=== PATIENT | male | born 1955 | race Caucasian/White ===

== ENCOUNTER 2018-07-04 04:16 | Inpatient (IN) | payer BC, SELFPAY ==
[2018-07-04] VITALS (29 sets, daily range): BP systolic 113–174; BP diastolic 54–96; PULSE 55–81; RESP 11–20; TEMP 36.4–36.7; O2SAT 98–100; BMI 31.1; BMI 31.4; BMI 31.5
--- NOTE | 2018-07-04 04:25 | EKG12_ITS ---
Test Reason : CP Blood Pressure : / mmHG Vent. Rate : 075 BPM Atrial Rate : 075 BPM P-R Int : 160 ms QRS Dur : 094 ms QT Int : 380 ms P-R-T Axes : 047 -03 104 degrees QTc Int : 424 ms Normal sinus rhythm Inferior infarct , acute T wave abnormality, consider lateral ischemia ACUTE WI / STEMI Consider right ventricular involvement in acute inferior infarct Abnormal ECG Confirmed by BECCA PERALTA, GUSTAVO ([id number]), book or script editor ALFREDO FARMER ([id number]) on 07/05/2018 3:45:44 PM Referred By: Sacha Coles Confirmed By:GUSTAVO HUDSON MD
--- NOTE | 2018-07-04 04:25 | RAD_ITS ---
STUDY: X-RAY CHEST REASON FOR EXAM: Male, 63 years old. Chest pain TECHNIQUE: Single AP portable view of the chest. COMPARISON: None. FINDINGS: There are superimposed monitor leads. The lungs are hyperaerated. Mild interstitial prominence. There is no focal parenchymal abnormality. There is no demonstrated pleural abnormality. There is borderline cardiomegaly. Normal mediastinum and elida. Normal visualized pulmonary arteries. There is atherosclerotic calcification of the aortic arch with tortuosity. There are diffuse degenerative changes of the visualized thoracic spine. Normal visualized ribs, clavicles, and shoulders. There is no demonstrated abnormality of the visualized soft tissue structures of the upper abdomen. RAD/Chest 1 View (Portable) IMPRESSION: There is borderline cardiac size. No pulmonary edema, congestive heart failure or confluent pneumonia. Other nonacute findings as outlined above. Electronically Signed: Katarina Gaona MD at 4:51 EST , Service support ,
--- NOTE | 2018-07-04 04:27 | ED.VISSUMM ---
- ER Visit Summary Date of Service: 07/04/18 Chief Complaint: Chest pain History of Present Illness: The patient is a 63 M with chest pain for an hour and a half. It woke him up from sleep. He has a history of hypercholesterolemia, he is a smoker and he has a strong family history of chest pain. Patient continues in the ED. Physical Examination: She appears in some distress, he is slightly diaphoretic Moist mucous membranes, no obvious facial deformity No C-spine tenderness supple neck. Regular rate and rhythm without any obvious murmurs Clear lungs bilaterally speaking in full sentences without any obvious respiratory distress Abdomen soft and nontender no guarding or rebound Moves all extremities without any difficulty or pain. Skin does not show any obvious rashes or lesions, no trauma. Alert oriented ?3 with no gross focal deficit Emergency Department Course and Treatment: Emergent EKG shows an inferior ST elevation [place] with reciprocal changes. STEMI team was activated. Patient was given heparin Brilinta as well as aspirin. I talked to the field cane scale clerk for emergent catheterization. Disposition: Admit to the hospital Impression: Acute ST elevation myocardial infarction This note was generated with M/A-[employer] dictation software. It may contain incorrect words, spelling, and punctuation that were not noted in review of the chart prior to signing ED Disposition - Plan for ED Patient: Chief Complaint: Chest Pain Referrals: Carolina Pablo MD [Primary Care Provider] -
[2018-07-04] MEDS: Aspirin 81 MG TAB.CHEW 324 MG PO (04:28)
[2018-07-04] MEDS: TICAGRELOR 90 MG TABLET 180 MG PO (04:29)
[2018-07-04] MEDS: Heparin Injection (Vial) 5,000 UNIT/ML VIAL 4000 UNIT IV (04:29)
--- NOTE | 2018-07-04 04:31 | ED.DCSUM_ITS ---
- ER Visit Summary Date of Service: 07/04/18 Chief Complaint: Chest pain History of Present Illness: The patient is a 63 M with chest pain for an hour and a half. It woke him up from sleep. He has a history of hypercholesterolemia, he is a smoker and he has a strong family history of chest pain. Patient continues in the ED. Physical Examination: She appears in some distress, he is slightly diaphoretic Moist mucous membranes, no obvious facial deformity No C-spine tenderness supple neck. Regular rate and rhythm without any obvious murmurs Clear lungs bilaterally speaking in full sentences without any obvious respiratory distress Abdomen soft and nontender no guarding or rebound Moves all extremities without any difficulty or pain. Skin does not show any obvious rashes or lesions, no trauma. Alert oriented ?3 with no gross focal deficit Emergency Department Course and Treatment: Emergent EKG shows an inferior ST elevation [place] with reciprocal changes. STEMI team was activated. Patient was given heparin Brilinta as well as aspirin. I talked to the map editor for emergent catheterization. Disposition: Admit to the hospital Impression: Acute ST elevation myocardial infarction This note was generated with [employer] dictation software. It may contain incorrect words, spelling, and punctuation that were not noted in review of the chart prior to signing ED Disposition - Plan for ED Patient: Chief Complaint: Chest Pain Referrals: Carolina Pablo MD [Primary Care Provider] -
--- NOTE | 2018-07-04 04:38 | ED.RN ---
PT REQUESTED STAFF CONTACT OLAF KILLIAN
--- NOTE | 2018-07-04 04:41 | NURSING ---
STEMI DOCUMENTATION SENT TO THE [facility]. AWAITING STAFF TO ARRIVE.
[2018-07-04 04:44] LABS: Absolute Lymphocyte Count 2.35 X10^3/ul (0.83-4.51); Absolute Neutrophil Count 3.4 X10^3/uL (2.0-7.7); Basophil# 0.03 X10^3/uL; Basophil% 0.4 % (0-1); Eosinophil# 0.18 X10^3/uL; Eosinophils% 2.7 % (0-5); Hematocrit 43.1 % (40-54); Hemoglobin 14.5 g/dl (13.0-16.5); Lymphocyte # 2.35 X10^3/ul (4.0); Lymphocyte % 35.2 % (19-41); Mean Corp Hgb Conc 33.6 g/gl (32-36); Mean Corpuscular Hgb 30.3 pg (27.0-32.0); Mean Platelet Vol. 9.5 fl (6.2-12.0); Monocyte# 0.72 X10^3/uL; Monocyte% 10.8 % (0-10); Neutrophil # 3.38 X10^3/uL (2.7-7.7); Neutrophil % 50.8 % (47-70); Platelet Count 309 K/mm3 (150-450); RBC Distribution Width CV 13.1 % (11.6-14.6); Red Blood Count 4.79 M/mm3 (4.6-6.2); White Blood Count 6.7 K/mm3 (4.4-11.0)
[2018-07-04 04:46] LABS: POSITIVE COUNT NO; POSITIVE DIFFERENTIAL NO; POSITIVE MORPHOLOGY NO
--- NOTE | 2018-07-04 04:48 | PCM.HP.STD ---
Problem List (1) Chest pain Status: Acute History of Present Illness Date of Admission: 07/04/18 Chief Complaint: CHEST PAIN The patient is a 63 year old M with a significant history of hypertension; hyperlipidemia who presented with progressively worsening excruciating pressure-like substernal pain that started a few hours before presentation to the emergency department. His chest pain radiated to his left arm. Associated with symptoms is nausea, vomiting and diaphoresis. Patient was given a pain medication to help with his pain. Patient was noted to have ST elevation. Cardiology saw the patient at the ED and patient was wheeled to the Manufacturing Clerk for cardiac catheterization. Past Medical History Medical History: Medical History (Last Updated 07/04/18 @ 05:35 by Mack Pittman MD) Hyperlipidemia E78.5 Hypertension I10 Allergies LODINE Allergy (Uncoded 07/04/18 04:17) Hives Home Medications: Ambulatory Orders Medication Instructions Recorded Hydrocodone/Acetaminophen 1 tab PO Q4H PRN PRN 07/04/18 [Hydrocodone-Acetamin 5-325 mg] Multivitamin [Multiple Vitamins] 1 tab PO DAILY 07/04/18 Naproxen 1 tab PO BID 07/04/18 Rosuvastatin Calcium 1 tab PO QHS 07/04/18 Surgical History: - - Internal hemorrhoid surgery; and back surgery Smoking Status: Current every day smoker Tobacco Use: Cigarettes - *Family History Paternal History Items: Heart Disease Maternal History Items: Cancer Review of Systems Constitutional: Denies: Chills, Fever, Weight Change HEENT: Denies: Head Aches, Sinus Congestion, Sinus Drainage Cardiovascular: Reports: Chest Pain, Chest Pressure. Denies: Palpitations Respiratory: Denies: Cough, Shortness of breath at rest, Sputum production Gastrointestinal: Reports: Nausea, Vomiting. Denies: Abdominal Pain Genitourinary: Denies: Dysuria Musculoskeletal: Denies: Joint Pain, Joint Tenderness Skin: Denies: Rash, Wounds Neurological: Denies: Numbness, Tingling, Focal weakness Psychiatric: Denies: Anxiety, Depression, Homicidal Ideations, Suicidal Ideations Hematologic/ Lymphatic: Denies: Easy Bruising, Easy Bleeding VTE Information - Inpt Only VTE Present on Admission: No VTE Mechan Device Prophylaxis: None VTE Pharm Prophylaxis ordered?: No Reason prophylaxis not ordered:: Treatment Not Indicated - Patient received heparin at emergency department. Patient Problems: Active and Suspected Problems (Last Updated 07/04/18 @ 05:35 by Mack Pittman MD) Chest pain (Acute) - Physical Exam General: Alert, Oriented x3, Cooperative HEENT: Atraumatic, PERRLA, EOMI, Normocephalic Neck: Supple, No JVD, Negative Carotid Bruits Lungs: Clear to auscultation, Normal air movement Cardiovascular: Regular rate, No murmurs Abdomen: Bowel Sounds Present, Soft, Non Tender Extremities: No edema, Capillary Refill Less than 3 Seconds Skin: No rashes, No breakdown Musculoskeletal: No Tenderness to Palpation of Joints or Extremities Neurological: Cranial nerves II-XII grossly intact Psych/Mental Status: Normal Affect, Appropriate Vital Signs Temp Pulse Resp BP Pulse Ox 97.5 F L 81 16 174/96 H 99 07/04/18 04:17 07/04/18 04:17 07/04/18 04:22 07/04/18 04:22 07/04/18 04:32 Oxygen Flow Rate (L/min) 2 Oxygen Delivery Method Nasal Cannula Weight: 101.5 kg Body Mass Index (BMI) 31.1 Laboratory Tests Past 24 Hrs 07/04/18 07/04/18 07/04/18 04:22 04:22 04:22 WBC 6.7 RBC 4.79 Hgb 14.5 Hct 43.1 MCV 90.0 MCH 30.3 MCHC 33.6 RDW 13.1 RDW Differential 43.0 Plt Count 309 MPV 9.5 Immature Gran % (Auto) 0.100 Neut % (Auto) 50.8 Lymph % (Auto) 35.2 Christian % (Auto) 10.8 H Eos % (Auto) 2.7 Baso % (Auto) 0.4 Absolute Neuts (auto) 3.4 Absolute Lymphs (auto) 2.35 Total Counted Not Reportable PT Pending INR Pending APTT Pending Sodium Pending Potassium Pending Chloride Pending Carbon Dioxide Pending Anion Gap Pending BUN Pending Creatinine Pending Est GFR (MDRD) Af Amer Pending Est GFR (MDRD) Non-Af Pending BUN/Creatinine Ratio Pending Glucose Pending Calcium Pending Troponin I Pending Assessment/Plan All Active Problems (Last Updated 07/04/18 @ 05:35 by Mack Pittman MD) Chest pain (Acute) The patient is a 63 year old M with a significant history of hypertension; hyperlipidemia who presented with progressively worsening excruciating pressure-like substernal pain and found to have ST elevation WI. ST elevation WI Independent review of EKG showed T wave inversion in inferior leads and reciprocal inversions in lead I, aVL and V2. Patient was taken to the Manufacturing Clerk after receiving Brilinta and heparin. Patient came to the hospital with squad. He took one aspirin at home. Patient was wheeled to worm farm laborer after seeing cardiology at the ED. Follow up with further cardiology recommendations. Hyperlipidemia Patient takes Crestor at home. Follow-up with cardiology recommendations. Hypertension Blood pressure on admission was not within goal. Follow up with further heart medications after cardiac cath. Tobacco abuse Counseled NicoDerm patch ordered. DVT prophylaxis Received heparin at the ED SCD ordered Code Visit Inpatient E&M: 91732 Init Hosp L3
[2018-07-04 04:52] LABS: Prothrombin Time (Protime)PT. 12.8 SECONDS (11.7-14.9)
[2018-07-04 04:53] LABS: Partial Thromboplast Time 31.9 Seconds (24.1-36.2)
[2018-07-04 04:59] LABS: Anion Gap 8 (5-15); BUN 14 mg/dL (7-18); BUN/Creat Ratio 14.8 RATIO (10-20); Calcium,Total 9.1 mg/dL (8.5-10.1); Chloride 106 mmol/L (98-107); Creatinine, Serum 0.95 mg/dL (0.70-1.30); EST Glomerular Filtration Rate 86 mL/min (>60); Est Glom Filt Rate - Afr Amer 104 mL/min (>60); Estimated Creatinine Clearance 86.97 ml/min; Glucose 128 mg/dL (74-106); Potassium 3.8 mmol/L (3.5-5.1); Sodium Level 142 mmol/L (136-145)
--- NOTE | 2018-07-04 05:04 | ED.RN ---
lab called with troponin 1.47 - MD aware.
--- NOTE | 2018-07-04 06:50 | CON.PCM_ITS ---
Reason for Consult Date of Consultation: 07/04/18 History of Present Illness: The patient is a 63 year old M with past medical history significant for dyslipidemia and chronic back pain. He woke up at around 3 AM this morning with anterior chest discomfort that radiated to the left arm. [facility] In the emergency room an EKG was done which showed acute inferior ST elevation myocardial infarction. Subsequently a STEMI alert was called. Patient denies any previous history of coronary artery disease. [] Past Medical History Allergies/Adverse Reactions: Allergies LODINE Allergy (Uncoded 07/04/18 04:17) Hives Home Medications: Ambulatory Orders Medication Instructions Recorded Hydrocodone/Acetaminophen 1 tab PO Q4H PRN PRN 07/04/18 [Hydrocodone-Acetamin 5-325 mg] Multivitamin [Multiple Vitamins] 1 tab PO DAILY 07/04/18 Naproxen 1 tab PO BID 07/04/18 Rosuvastatin Calcium 1 tab PO QHS 07/04/18 Surgical History: - - Internal hemorrhoid surgery; and back surgery - *Family History Paternal History Items: Heart Disease Maternal History Items: Cancer Smoking Status: Current every day smoker Tobacco Use: Cigarettes Review of Systems - Review of Systems General: Denies: Fever, Fatigue, Weight Loss Cardiovascular: Reports: Chest Discomfort at Rest. Denies: Orthopnea, PND Respiratory: Denies: Cough, Hemoptysis Gastrointestinal: Denies: Heart Burn, Abdominal Discomfort, Jaundice Neurological: Denies: History of TIA, History of CVA Endocrine: Denies: Heat Intolerance, Cold Intolerance Hematologic/ Lymphatic: Denies: Easy Brusing, Easy Bleeding Subjectve: Appeared anxious. Objective: Vital Signs Temp Pulse Resp BP Pulse Ox 97.5 F L 81 16 174/96 H 99 07/04/18 04:17 07/04/18 04:17 07/04/18 04:22 07/04/18 04:22 07/04/18 04:32 Oxygen Flow Rate (L/min) 2 Oxygen Delivery Method Nasal Cannula Weight: 101.5 kg Body Mass Index (BMI) 31.1 General: Awake, Alert, Oriented x 3, In Acute Distress HEENT: Atraumatic Neck: Supple, No JVD Lungs: Clear to auscultation Cardiovascular: Regular Rhythm, Normal S1, Normal S2 Vascular: No Carotid Bruits Abdomen: Bowel Sounds Present, Soft Extremities: No edema Neurological: No Focal Motor or Sensory Deficit Psych/Mental Status: Anxious 07/04/18 04:22: WBC 6.7, RBC 4.79, Hgb 14.5, Hct 43.1, MCV 90.0, MCH 30.3, MCHC 33.6, RDW 13.1, RDW Differential 43.0, Plt Count 309, MPV 9.5, Immature Gran % (Auto) 0.100, Neut % (Auto) 50.8, Lymph % (Auto) 35.2, [place] % (Auto) 10.8 H, Eos % (Auto) 2.7, Baso % (Auto) 0.4, Absolute Neuts (auto) 3.4, Total Counted Not Reportable 07/04/18 04:22: PT 12.8, INR 1.0, APTT 31.9 07/04/18 04:22: Sodium 142, Potassium 3.8, Chloride 106, Carbon Dioxide 28.0, Anion Gap 8, BUN 14, Creatinine 0.95, Est GFR (MDRD) Af Amer 104, Est GFR (MDRD) Non-Af 86, BUN/Creatinine Ratio 14.8, Glucose 128 H, Calcium 9.1, Troponin I 1.470 H* Rhythm: Normal sinus rhythm EKG: EKG done in the emergency room showed acute ST elevation myocardial infarction in the inferior leads ECHO: Stress Test: Cardiac Cath: PCI: CT Surgery: Holter monitor: EPS: PPM: CXR: Chest CT Scan: Assessment/Plan 1. Acute inferior myocardial infarction. Patient was advised emergent coronary angiography and revascularization. 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 Successful percutaneous revascularization was performed with placement of drug-eluting stent to the distal RCA mid and proximal RCA. Excellent results were noted. RANDY-3 flow was restored. Patient's symptoms resolved. 2. Start patient on beta blockers. Aspirin for life. Brilinta for at least one year. 3. Patient has severe residual lesion in his left anterior descending artery. Also lesion in the mid left circumflex artery. For staged PCI as outpatient. 4. Check 2D echocardiogram to assess LV function 5. Nicotine dependence. Counseled to quit. 6. History of dyslipidemia. Statins.
[2018-07-04 07:01] LABS: ACT Activated Clotting Time 125 sec (74-137)
[2018-07-04 07:01] LABS: ACT Activated Clotting Time 340 sec (74-137)
--- NOTE | 2018-07-04 07:09 | CL.I_ITS ---
Patient Name: ODALIS COTA Study Date: 07/04/2018 Performing: Bertha Bedoya MD Ht: 70.86 inches 180 cm : 1955 Wt: 224.87 lbs 102 kg Age: 63 Gender: male BSA: 2.21 PROCEDURE(S) PERFORMED [id number], EDNNIS AND/OR PTCA, ARTERY OR GRAFT, SINGLE VESSEL [id number] CLINICAL PROFILE AND CO-MORBIDITIES Heart Failure: None CAD Presentations: STEMI. Symptom onset Date/Time: 07/04/2018 03:00:00 Time Estimated CONCLUSIONS 100% Mid RCA 90% Mid LAD 70% Mid LCX Successful DENNIS distal RCA using Elunir 2.5x28 mm RECOMMENDATIONS ASA Indefinitley Brilinta for at least 12 months Staged PCI to LAD +/-LCX DESCRIPTION OF PROCEDURE The patient arrived to the procedure lab. The risks and benefits of the procedure as well as a full d escription of our services here and lack of surgical backup were fully explained to the patient and/o r their significant other prior to the catheterization. The Timeout was completed, verifying the santiago ect patient and procedure. The patient's procedural site was prepped and draped in the usual fashion. Local anesthetic was given subcutaneously to right radial region with Lidocaine 2%. Using a modified Seldinger technique, arterial access was obtained via the right radial artery, a 6Fr sheath was inse rted.. Left Coronary Artery selective angiography was performed in multiple views using a 5 Fr. JL4 catheter. LV to AO pullback pressures were then recorded tig 6 fr Guide catheter was inserted and engaged into the RCA. run through Guide wire was advance d to the RCA. emerge 2.00 x 12 Balloon catheter was advanced across lesion in the right coronary, pro ximal. PTCA balloon inflated at 6 atms for 15 secs. Angiogram performed post balloon dilatation. Gabrielle ogram performed pre stent deployment. elunir 2.5 x 24 Drug Eluting stent was advanced across the lesi on in the right coronary, distal. runthrough Guide wire was advanced to the PL. emerge 2.5 x 20 Ballo on catheter was advanced across lesion in the distal right coronary PTCA balloon inflated at 10 atms for 14 secs. Angiogram performed post balloon dilatation. elunir 3.0 x 28 Drug Eluting stent was adva nced across the lesion in the right coronary, proximal. Angiogram performed post stent deployment. el unir 3.0 x 15 Drug Eluting stent was advanced across the lesion in the right coronary, proximal. Gabrielle ogram performed post stent deployment. emerge 2.5 x 20 Balloon catheter was inserted post stent. nc emerge 2.5 x 20 Balloon catheter was inserted post stent. nc emerge 2.5 x 20 Balloon cathet er was inserted post stent. nc emerge 2.5 x 8 Balloon catheter was inserted post stent. Angiogram pe rformed pre balloon dilatation. Angiogram performed post balloon dilatation. nc emerge 3.00 x 20 Ball oon catheter was inserted post stent. Angiogram performed post balloon dilatation. The arterial she ath was pulled and a TR Band was applied for hemostasis CORONARY ANGIOGRAPHY DOMINANCE: Right Dominant LEFT HEART ASSESSMENT Left Ventricular Ejection Fraction: Not assessed LVEDP: 15 mmHg LEFT MAIN: Angiographically normal LEFT ANTERIOR DECENDING ARTERY: 90% Mid lesion. 70% Diag CIRCUMFLEX ARTERY: 70% Mid RIGHT CORONARY ARTERY: 100% Mid INTERVENTION INFORMATION LESION SITE: RCA (Mid) Lesion Complexity: High/C, thrombus present: Yes, culprit lesion: Yes Pre Stenosis: 100 % Pre intervention RANDY flow: 0 PROCEDURE: Drug Eluting Stent with pre and post dilatation Post Stenosis: 10 % Post intervention RANDY flow: 3 Lesion Devices: Terumo .014 Runthrough Extra Floppy 180cm straight [place] Sci EMERGE MR 2.50x20 BALLOON Cardinal Elunir DENNIS RX 3.0x28 Cardinal Elunir DENNIS RX 3.0x15 [place] Sci NC EMERGE MR 3.00x20 BALLOON LESION SITE: RCA (Distal) Lesion Complexity: High/C, culprit lesion: No Pre Stenosis: 80 % Pre intervention RANDY flow: 2 PROCEDURE: Drug Eluting Stent with post dilatation Post Stenosis: 0 % Post intervention RANDY flow: 3 Lesion Devices: Cardinal Elunir DENNIS RX 2.5x24 [place] Sci NC EMERGE MR 2.50x08 BALLOON COMPLICATIONS No Complications PROCEDURE MEDICATIONS Fentanyl 25 mcg IV Fentanyl 25 mcg IV Fentanyl 25 mcg IV Fentanyl 25 mcg IV Oxygen: 2 L/min via nasal cannula Angiomax 15 ml's bolus 07/04/2018 05:04:53 Angiomax 35 ml's/ hr iv 07/04/2018 05:09:33 Angiomax dc'd ^FreeText^ @ 07/04/2018 06:37:46 Nitro 100 mcg IC 07/04/2018 05:23:52 Magnesium Sulfate 2 Gm 07/04/2018 06:04:52 Nitro 200 mcg IC 07/04/2018 06:13:07 IV Bolus: .9 NaCl 500 ml total 07/04/2018 05:30:31 IV Bolus: .9 NaCl 750 ml total 07/04/2018 06:32:34 SUMMARY OF HEMODYNAMIC DATA Time AIR REST ECG 04:55:09 AO 94/67 (79) SA 05:26:22 LV 125/0, 19 06:30:16 LV 128/0, 15 06:30:24 LVp 126/61, 66 06:30:38 Signed By Bertha Bedoya MD On 07/04/2018 7:08:28 AM Bertha Bedoya MD
--- NOTE | 2018-07-04 07:13 | EKG12_ITS ---
Test Reason : POST CATH Blood Pressure : / mmHG Vent. Rate : 059 BPM Atrial Rate : 059 BPM P-R Int : 164 ms QRS Dur : 092 ms QT Int : 434 ms P-R-T Axes : 052 -12 032 degrees QTc Int : 429 ms Sinus bradycardia Inferior infarct , age undetermined Abnormal ECG When compared with ECG of 04-JUL-2018 04:21, MANUAL COMPARISON REQUIRED, DATA IS UNCONFIRMED Confirmed by BECCA PERALTA, GUSTAVO ([id number]), publication editor ALFREDO FARMER ([id number]) on 07/12/2018 2:10:00 PM Referred By: Sacha Coles Confirmed By:GUSTAVO HUDSON MD
--- NOTE | 2018-07-04 07:13 | ECHOD_ITS ---
Reason For Study: S/P GA Procedure This was a 2D Doppler, Color Flow transthoracic echocardiogram. The study was technically difficult. Exam performed portable in ICU/CCU. Left Ventricle Normal size and thickness. Apical false tendon noted. The estimated ejection fraction is 50-55 %. Stage 1 diastolic dysfunction. Mid-Inferior: Mildly hypokinetic. Right Ventricle Mildly dilated right ventricle. Normal systolic function. Atria Normal left atrium. The right atrium is mildly enlarged. Normal atrial septum. Mitral Valve The mitral valve is structurally normal. No prolapse or stenosis seen. Tricuspid Valve Normal tricuspid valve. Mild (1+) tricuspid valve insufficiency. Right ventricular systolic pressure estimated to be 30 mmHg. Aortic Valve Trisinus/trileaflet aortic valve. Mild diffuse aortic valve thickening. Pulmonic Valve Normal pulmonic valve. Great Vessels Normal aortic root. Normal arch. Normal inferior vena cava. Inferior vena cava collapse with sniff. Pericardium/Pleural No pericardial effusion. MMode/2D Measurements & Calculations LVIDd: 4.6 cm IVSd: 1.2 cm Ao root diam: 3.0 cm LVIDs: 3.5 cm LVPWd: 1.1 cm RVDd: 4.0 cm FS: 24.0 % LAV(MOD-bp): 67.8 ml LA A4 area: 19.2 cm2 LA dimension(2D): 3.8 cm LAV(MOD-bp) Indexed: 30.9 ml/m2 LAV(MOD-sp2): 73.5 ml LAV(MOD-sp4): 56.2 ml RA A4 area: 21.0 cm2 Time Measurements MV dec time: 0.32 sec Doppler Measurements & Calculations MV E max elton: 52.6 cm/sec Lat Peak E' Elton: 9.7 cm/sec Med Peak E' Elton: 6.7 cm/sec MV A max elton: 81.6 cm/sec E/E' lat: 5.4 E/E' med: 7.8 MV E/A: 0.64 Ao V2 max: 137.7 cm/sec LV V1 max: 85.2 cm/sec PA V2 max: 82.2 cm/sec Ao max P.6 mmHg LV V1 max P.9 mmHg TR max elton: 240.5 cm/sec TR max P.2 mmHg Interpretation Summary The estimated ejection fraction is 50-55 %. Stage 1 diastolic dysfunction. Mid-Inferior: Mildly hypokinetic Mildly dilated right ventricle. Mild (1+) tricuspid valve insufficiency. Right ventricular systolic pressure estimated to be 30 mmHg. There is no comparison study available. Ordering Physician: Bertha Bedoya Referring Physician: Carolina Pablo Performed By: Celena Morris RDCS, RVT
[2018-07-04] MEDS: 0.9% Normal Saline 1,000 ML 150 ML IV (07:37)
[2018-07-04] MEDS: HYDROcodone Bitartrate/Apap 5/325 Tablet PO ×3 (08:29→21:13)
[2018-07-04] MEDS: Aspirin E.C. 81 MG Tablet PO (09:03)
[2018-07-04] MEDS: Carvedilol 3.125 MG TABLET PO ×2 (09:03→21:13)
[2018-07-04 09:56] LABS: Magnesium 1.8 mg/dL (1.6-2.6)
--- NOTE | 2018-07-04 10:07 | CRPHASE1 ---
Patient Data/Charges Intelligence Officer:: Sacha Coles Refer Phase II:: Yes Phase II Referral:: [facility] Start Phase II:: after follow up visit with healthcare consulting manager Phase I Charge:: Level I - Education Risk Factors/Lifestyle Smoking Status: Current every day smoker Hx Hypertension: No Hx Diabetes Mellitus Type 1: No Hx Diabetes Mellitus Type 2: No Hx Dyslipidemia: No Hx Obesity: Yes Height: 5 ft 11 in Weight:: 225 lb BMI: 31.4 Stress: Recent Phase I Education Given On:: [place], Nutrition, Antiplatelet medication, CHF, Smoking cessation Issues Affecting Care:: Emotional Knowledge of Condition:: Yes Learning Preferences: Verbal, Written, Audio/Visual, Demonstration Medical/Surgical History Anxiety:: Yes
--- NOTE | 2018-07-04 10:11 | CRPHASE1_ITS ---
Patient Data/Charges Electro Winning Operator:: Sacha Coles Refer Phase II:: Yes Phase II Referral:: [facility] Start Phase II:: after follow up visit with roll line operator Phase I Charge:: Level I - Education Risk Factors/Lifestyle Smoking Status: Current every day smoker Hx Hypertension: No Hx Diabetes Mellitus Type 1: No Hx Diabetes Mellitus Type 2: No Hx Dyslipidemia: No Hx Obesity: Yes Height: 5 ft 11 in Weight:: 225 lb BMI: 31.4 Stress: Recent Phase I Education Given On:: [place], Nutrition, Antiplatelet medication, CHF, Smoking cessation Issues Affecting Care:: Emotional Knowledge of Condition:: Yes Learning Preferences: Verbal, Written, Audio/Visual, Demonstration Medical/Surgical History Anxiety:: Yes
--- NOTE | 2018-07-04 10:13 | CRPH1.INST_ITS ---
General Education CAD and cardiac anatomy and function:: Patient communicates acknowledgment, Needs reinforcement Explanation of diagnoses and procedures:: Patient communicates acknowledgment, Needs reinforcement Sign/Symptoms of [place]:: Patient communicates acknowledgment, Needs reinforcement Antiplatelet therapy: Patient communicates acknowledgment, Needs reinforcement Proper use of NTG-SL: Patient communicates acknowledgment, Needs reinforcement Emergency procedures and activation of EMS: Patient communicates acknowledgment, Needs reinforcement Compliance of all prescribed medications: Patient communicates acknowledgment, Needs reinforcement Smoking Patient Nicotine/Smoking Risk Factors Are:: Cigarettes Recommendations Include:: Smoking cessation strategies/Smoking packet, Participation in a smoking cessation program Nicotine/Smoking Response Code:: Patient communicates acknowledgment, Needs re inforcement Dyslipidemia Patient Dyslipidemia Risk Factors Are:: Total Cholesterol, Triglycerides, HDL, LDL Recommendations Include:: Lipid profile provided, Reviewed NCEP/ATP guidelines, Therapeutic Lifestyle Change dietary guidelines Dyslipidemia Response Code:: Patient communicates acknowledgment, Needs re inforcement Overweight/Obesity Patient Overweight/Obesity Risk Factors Are:: Obesity - > or = 30 Recommendations Include:: Weight loss of 5-10%, Reduced calorie diet, Exercise 5-7 times/week Overweight/Obesity:: Patient communicates acknowledgment, Needs reinforcement Hypertension Recommendations Include:: Maintain BP <130/85, Decrease/maintain normal body weight, Moderation of ETOH Hypertension:: Patient communicates acknowledgment, Needs reinforcement Heart Disease Patient Heart Disease Risk Factors Are:: Family history of heart disease < 65 years old Recommendations Include:: Educated family members of their risk, Educated family members of importance of prevention of heart disease Heart Disease Response Code:: Patient communicates acknowledgment, Needs reinforcement Diabetes Patient Diabetes Risk Factors Are:: No documented hx of diabetes Recommendations Include:: Decrease/maintain body weight Diabetes:: Patient communicates acknowledgment, Needs reinforcement Metabolic Syndrome Patient Metabolic Syndrome Risk Factors Are [3 of 5]:: Waist circumference > 35 [female] or 40 [male] Recommendations Include:: Encouraged follow-up with Primary Care Physician Metabolic Syndrome Response Code:: Patient communicates acknowledgment, Needs reinforcement Sedentary Patient Sedentary Risk Factors Are:: Lack of regular exercise Recommendations Include:: Aerobic exercise 5-7 times/week for 20-30 minutes continuously, Benefits of regular exercise, Discussed home walking program, Monitored Outpatient Cardiac Rehab Sedentary Response Code:: Patient communicates acknowledgment Stress Recommendations Include:: Identification of stressors, and assessment of coping skills, Stress management techniques Stress Response Code:: Patient communicates acknowledgment, Needs reinforcement
[2018-07-04] MEDS: LORazepam 0.5 MG Tablet PO (10:18)
--- NOTE | 2018-07-04 10:29 | PCM.PN.BLA ---
Progress Note This is a 63 years old male patient admitted for ST elevation [place], underwent cardiac catheterization, found to have 100% occlusion of RCA, 90% occlusion of mid RCA and 70% occlusion of left circumflex, status post successful DENNIS to distal RCA. Patient seen and examined. He denies any more chest pain or shortness of breath. He complained of some anxiety. His vital signs are stable. Physical examination is unremarkable. He is on aspirin, statins, Coreg and Brilinta. Plan to continue same treatment, cardiology on the case. Nursing staff reported intermittent runs of nonsustained V. tach. Patient is asymptomatic, vitals are stable. Will check serum magnesium.
--- NOTE | 2018-07-04 10:32 | PN_ITS ---
Progress Note This is a 63 years old male patient admitted for ST elevation [place], underwent cardiac catheterization, found to have 100% occlusion of RCA, 90% occlusion of mid RCA and 70% occlusion of left circumflex, status post successful DENNIS to distal RCA. Patient seen and examined. He denies any more chest pain or shortness of breath. He complained of some anxiety. His vital signs are stable. Physical examination is unremarkable. He is on aspirin, statins, Coreg and Brilinta. Plan to continue same treatment, cardiology on the case. Nursing staff reported intermittent runs of nonsustained V. tach. Patient is asymptomatic, vitals are stable. Will check serum magnesium.
[2018-07-04] MEDS: TICAGRELOR 90 MG TABLET PO ×2 (12:17→21:14)
--- NOTE | 2018-07-04 14:30 | CASEMGMT ---
MARTY BURNETTE INITIAL ASSESSMENT D/C PLAN: Home on Brilinta. Will determine co-pay amt once Brilinta order entered. Face to Face with patient for initial transition planning/care coordination assessment. MARTY BURNETTE introduced self and role at [facility]. Pt sitting up in bed, talking with ex-,Jia, @ bedside. Pt states okay to complete assessment and agreeable to answering questions. Care providers, pharmacy, and demographics verified. Pt states plans on going to Jia's home upon discharge to stay for a few days. Pt states he still smokes and agreeable to smoking cessation information. Call placed to [facility] and they were notified. States he does not drink alcohol. PCP: [facility] Specialists: System Consultant @ [place]. Preferred Pharmacy: [facility] or [facility], depending on Brilinta co-pay. Insurance: [place] Prescription Benefit: Yes Living Will/HPOA: Does not have either. Interested in further information and talking with SW. Consult placed for SW for Adv Directives. Living Arrangements: Brother lives with him. Pt going to be staying with ex- for a few days. She lives in a 2-story home w/approx 16 steps b/w floors. Pt states able to navigate stairs well. Transportation: Pt still drives. DME: Denies using any DME and denies needs. HHC/SNF: Has never used HHC or been to a SNF. No needs identified. CM to follow for any further discharge planning needs that may arise. Jen DANIELLE RN, CM
[2018-07-04] MEDS: Atorvastatin Calcium 40 MG Tablet PO (21:14)
[2018-07-04] MEDS: MELATONIN 10 MG TABLET 5 MG PO (21:15)
[2018-07-05] VITALS (21 sets, daily range): BP systolic 97–149; BP diastolic 39–86; PULSE 54–75; RESP 12–18; TEMP 36.4–36.9; O2SAT 98–100
[2018-07-05] MEDS: LORazepam 1 MG Tablet PO ×2 (02:31→18:49)
[2018-07-05] MEDS: HYDROcodone Bitartrate/Apap 5/325 Tablet PO ×4 (03:17→21:39)
[2018-07-05] MEDS: 0.9% NaCl Peripheral Flush Adult/Peds IV (03:21)
[2018-07-05 03:31] LABS: Hematocrit 36.6 % (40-54); Hemoglobin 12.4 g/dl (13.0-16.5); Mean Corp Hgb Conc 33.9 g/gl (32-36); Mean Corpuscular Hgb 30.6 pg (27.0-32.0); Mean Corpuscular Volume 90.4 fL (80-94); Mean Platelet Vol. 9.4 fl (6.2-12.0); Platelet Count 253 K/mm3 (150-450); RBC Distribution Width CV 13.2 % (11.6-14.6); RBC Distribution Width SD 42.7 fl (35.1-43.9); Red Blood Count 4.05 M/mm3 (4.6-6.2)
[2018-07-05 03:41] LABS: Scan Indicated on CBC? Y/N NO
[2018-07-05 03:50] LABS: ALB/GLOB Ratio 0.8 RATIO (0.9-2.4); AST(SGOT) 158 U/L (15-37); Alanine Aminotransfer ALT/SGPT 38 U/L (16-61); Albumin, Serum 2.8 g/dL (3.2-5.0); Alkaline Phosphatase 100 U/L (45-117); Anion Gap 8 (5-15); BUN 14 mg/dL (7-18); BUN/Creat Ratio 18.9 RATIO (10-20); Calcium,Total 8.1 mg/dL (8.5-10.1); Chloride 110 mmol/L (98-107); Creatinine, Serum 0.74 mg/dL (0.70-1.30); EST Glomerular Filtration Rate 114 mL/min (>60); Est Glom Filt Rate - Afr Amer 138 mL/min (>60); Estimated Creatinine Clearance 111.65 ml/min; Globulin 3.3 g/dL (2.2-4.2); Glucose 105 mg/dL (74-106); Potassium 4.1 mmol/L (3.5-5.1); Protein, Total 6.1 g/dL (6.4-8.2); Sodium Level 143 mmol/L (136-145)
[2018-07-05 03:57] LABS: Cholesterol 127 mg/dL (200); High Density Lipoprotein 43 mg/dL; Triglycerides 63 mg/dL; Very Low Density Lipoprotein 13 mg/dL (5-40)
--- NOTE | 2018-07-05 07:13 | EKG12_ITS ---
Test Reason : AM EKG Blood Pressure : / mmHG Vent. Rate : 064 BPM Atrial Rate : 064 BPM P-R Int : 142 ms QRS Dur : 090 ms QT Int : 426 ms P-R-T Axes : 053 -20 -37 degrees QTc Int : 439 ms Normal sinus rhythm Inferior infarct , age undetermined Abnormal ECG When compared with ECG of 04-JUL-2018 07:12, MANUAL COMPARISON REQUIRED, DATA IS UNCONFIRMED Confirmed by BECCA PERALTA, GUSTAVO ([id number]), fashion editor ALFREDO FARMER ([id number]) on 07/12/2018 2:09:04 PM Referred By: Sacha Coles Confirmed By:GUSTAVO HUDSON MD
[2018-07-05] MEDS: Aspirin E.C. 81 MG Tablet PO (07:38)
[2018-07-05] MEDS: Carvedilol 3.125 MG TABLET PO ×2 (09:39→21:38)
[2018-07-05] MEDS: TICAGRELOR 90 MG TABLET PO ×2 (09:39→21:38)
--- NOTE | 2018-07-05 11:25 | PCM.PN.CARD ---
Subjectve: No complaints. Ambulating. No chest pain or shortness of breath Objective: Vital Signs Temp Pulse Resp BP Pulse Ox 97.6 F L 64 17 131/69 H 99 07/05/18 09:00 07/05/18 11:00 07/05/18 11:00 07/05/18 11:00 07/05/18 11:00 Oxygen Flow Rate (L/min) 2 Oxygen Delivery Method Room Air Weight: 101.7 kg Body Mass Index (BMI) 31.4 Intake and Output for Last 24 Hours 07/03/18 07/04/18 07/05/18 23:59 23:59 23:59 Intake Total 1660 / 1660 120 / 120 Output Total 775 / 775 Balance 885 / 885 120 / 120 General: Healthy Appearing, Awake, Alert, Oriented x 3, No Acute Distress HEENT: Atraumatic, Normocephalic Oral: Moist Mucosa Neck: Supple, No JVD Lungs: Clear to auscultation Cardiovascular: Regular Rhythm, Normal S1, Normal S2 Vascular: - - Right radial pulse 2+ Abdomen: Bowel Sounds Present, Soft Extremities: No edema Psych/Mental Status: Appropriate 07/05/18 03:20: WBC 7.0, RBC 4.05 L, Hgb 12.4 L, Hct 36.6 L, MCV 90.4, MCH 30.6, MCHC 33.9, RDW 13.2, RDW Differential 42.7, Plt Count 253, MPV 9.4 07/05/18 03:20: Sodium 143, Potassium 4.1, Chloride 110 H, Carbon Dioxide 25.0, Anion Gap 8, BUN 14, Creatinine 0.74, Est GFR (MDRD) Af Amer 138, Est GFR (MDRD) Non-Af 114, BUN/Creatinine Ratio 18.9, Glucose 105, Calcium 8.1 L, Total Bilirubin 0.30 07/05/18 03:20: Triglycerides 63, Cholesterol 127, LDL Cholesterol 71, VLDL Cholesterol 13, HDL Cholesterol 43 Rhythm: Normal sinus rhythm. No arrhythmias overnight EKG: Normal sinus rhythm. Recent inferior DC ECHO: Ejection fraction 50-55%. Mild inferior hypokinesis Stress Test: Cardiac Cath: PCI: CT Surgery: Holter monitor: EPS: PPM: CXR: Chest CT Scan: Medical Necessity - Tobacco Use Smoking Status: Current every day smoker Tobacco Use: Cigarettes Assessment/Plan 1. Inferior ST elevation myocardial infarction. Status post drug-eluting stent placement to the right coronary artery. Stable. Asymptomatic. Continue aspirin lifelong. Brilinta for at least one year. Continue beta blockers. Overall left ventricular systolic ejection fraction normal. 2. Residual lesions in the left anterior descending artery and mid left circumflex artery. For staged intervention as outpatient. 3. Dyslipidemia. Lipitor. 4. Nicotine dependence. Counseled. Patient agrees to quit smoking. Transferred to stepdown. Possible discharge home in the morning
--- NOTE | 2018-07-05 11:30 | PCM.PROGNOTE ---
Patient Problems: Active and Suspected Problems (Last Updated 07/04/18 @ 12:15 by Caryn Daly) Chest pain (Acute) Subjective: Chief complaint: Follow-up after admission for inferior acute ST elevation [place], status post DENNIS to RCA. Patient seen and examined. No acute events overnight. Apart from mild anxiety, he denied any other complaints. He denies chest pain or shortness of breath. He has been ambulating, no symptoms. His vital signs are stable. - Physical Exam General: Alert, Oriented x3, Cooperative, No apparent distress HEENT: Atraumatic, PERRLA, EOMI, Normocephalic Oral: Moist Mucosa, No Gingival or Mucosal Lesions/ Ulcerations Neck: Supple, No JVD, Negative Carotid Bruits, Trachea Midline, Thyroid Normal Size and Texture Lungs: Clear to auscultation, Normal air movement, No rhonchi, No wheeze, No rales Cardiovascular: Regular rate, Regular Rhythm, Normal S1, Normal S2, PMI Normal Abdomen: Bowel Sounds Present, Soft, Non Tender, Non-Distended, No Hepato-splenomegaly Extremities: No clubbing, No cyanosis, No edema Skin: No rashes, No breakdown Lymphatic: No Cervical, Supraclavicular, or Inguinal Adenopathy Neurological: Cranial nerves II-XII grossly intact, Motor Exam 5/5 strength throughout Psych/Mental Status: Normal Affect, Appropriate, Alert and oriented to time, place, person, mood and affect Vital Signs Temp Pulse Resp BP Pulse Ox 97.6 F L 64 17 131/69 H 99 07/05/18 09:00 07/05/18 11:00 07/05/18 11:00 07/05/18 11:00 07/05/18 11:00 Oxygen Flow Rate (L/min) 2 Oxygen Delivery Method Room Air Weight: 224 lb 3.362 oz Body Mass Index (BMI) 31.4 Intake and Output for Last 24 Hours 07/03/18 07/04/18 07/05/18 23:59 23:59 23:59 Intake Total 1660 / 1660 120 / 120 Output Total 775 / 775 Balance 885 / 885 120 / 120 Laboratory Tests Past 24 Hrs 07/05/18 07/05/18 07/05/18 03:20 03:20 03:20 WBC 7.0 RBC 4.05 L Hgb 12.4 L Hct 36.6 L MCV 90.4 MCH 30.6 MCHC 33.9 RDW 13.2 RDW Differential 42.7 Plt Count 253 MPV 9.4 Sodium 143 Potassium 4.1 Chloride 110 H Carbon Dioxide 25.0 Anion Gap 8 BUN 14 Creatinine 0.74 Estim Creat Clear Calc 111.65 Est GFR (MDRD) Af Amer 138 Est GFR (MDRD) Non-Af 114 BUN/Creatinine Ratio 18.9 Glucose 105 Calcium 8.1 L Total Bilirubin 0.30 AST 158 H ALT 38 Alkaline Phosphatase 100 Total Protein 6.1 L Albumin 2.8 L Globulin 3.3 Albumin/Globulin Ratio 0.8 L Triglycerides 63 Cholesterol 127 LDL Cholesterol 71 VLDL Cholesterol 13 HDL Cholesterol 43 Medical Necessity - Tobacco Use Smoking Status: Current every day smoker Tobacco Use: Cigarettes Assessment/Plan All Active Problems (Last Updated 07/04/18 @ 12:15 by Caryn Daly) H/O right coronary artery stent placement (Resolved 07/04/18) Atherosclerosis of coronary artery of [place] heart without angina pectoris (Acute) Acute inferior myocardial infarction (Acute 07/04/18) STEMI (ST elevation myocardial infarction) (Acute) Chest pain (Acute) This is a 63 years old male patient presented to the emergency room because of chest pain, found to have acute inferior ST elevation [place], 1 for emergent cardiac catheterization, found to have 100% occlusion of the RCA, 90% stenosis of the mid RCA and 70% stenosis of the mid left circumflex, status post successful drug eluting stent to distal RCA. #[address] elevation [place]: Status post drug-eluting stent to mid RCA, plan is for staged intervention as outpatient for LAD and left circumflex. He is on aspirin, statins, Coreg and Brilinta. His vital signs are stable. He has no more chest pain, asymptomatic. Routine blood work was unremarkable. Plan to continue same treatment, DC home tomorrow. #2 hyperlipidemia: Stable, continue statins. Lipid profile reviewed. #3 tobacco abuse: Counseled, recommended to quit smoking, on nicotine patch. #4 DVT prophylaxis: SCDs, ambulate. This note was generated with NetStreamsation software. It may contain incorrect words, spelling, and punctuation that were not noted in checking the note before signing. Code Visit Inpatient E&M: 56750 Subs Hosp L2
--- NOTE | 2018-07-05 11:35 | PN_ITS ---
Patient Problems: Active and Suspected Problems (Last Updated 07/04/18 @ 12:15 by Caryn Daly) Chest pain (Acute) Subjective: Chief complaint: Follow-up after admission for inferior acute ST elevation [place], status post DENNIS to RCA. Patient seen and examined. No acute events overnight. Apart from mild anxiety, he denied any other complaints. He denies chest pain or shortness of breath. He has been ambulating, no symptoms. His vital signs are stable. - Physical Exam General: Alert, Oriented x3, Cooperative, No apparent distress HEENT: Atraumatic, PERRLA, EOMI, Normocephalic Oral: Moist Mucosa, No Gingival or Mucosal Lesions/ Ulcerations Neck: Supple, No JVD, Negative Carotid Bruits, Trachea Midline, Thyroid Normal Size and Texture Lungs: Clear to auscultation, Normal air movement, No rhonchi, No wheeze, No rales Cardiovascular: Regular rate, Regular Rhythm, Normal S1, Normal S2, PMI Normal Abdomen: Bowel Sounds Present, Soft, Non Tender, Non-Distended, No Hepato- splenomegaly Extremities: No clubbing, No cyanosis, No edema Skin: No rashes, No breakdown Lymphatic: No Cervical, Supraclavicular, or Inguinal Adenopathy Neurological: Cranial nerves II-XII grossly intact, Motor Exam 5/5 strength throughout Psych/Mental Status: Normal Affect, Appropriate, Alert and oriented to time, place, person, mood and affect Vital Signs Temp Pulse Resp BP Pulse Ox 97.6 F L 64 17 131/69 H 99 07/05/18 09:00 07/05/18 11:00 07/05/18 11:00 07/05/18 11:00 07/05/18 11:00 Oxygen Flow Rate (L/min) 2 Oxygen Delivery Method Room Air Weight: 224 lb 3.362 oz Body Mass Index (BMI) 31.4 Intake and Output for Last 24 Hours 07/03/18 07/04/18 07/05/18 23:59 23:59 23:59 Intake Total 1660 / 1660 120 / 120 Output Total 775 / 775 Balance 885 / 885 120 / 120 Laboratory Tests Past 24 Hrs 07/05/18 07/05/18 07/05/18 03:20 03:20 03:20 WBC 7.0 RBC 4.05 L Hgb 12.4 L Hct 36.6 L MCV 90.4 MCH 30.6 MCHC 33.9 RDW 13.2 RDW Differential 42.7 Plt Count 253 MPV 9.4 Sodium 143 Potassium 4.1 Chloride 110 H Carbon Dioxide 25.0 Anion Gap 8 BUN 14 Creatinine 0.74 Estim Creat Clear Calc 111.65 Est GFR (MDRD) Af Amer 138 Est GFR (MDRD) Non-Af 114 BUN/Creatinine Ratio 18.9 Glucose 105 Calcium 8.1 L Total Bilirubin 0.30 AST 158 H ALT 38 Alkaline Phosphatase 100 Total Protein 6.1 L Albumin 2.8 L Globulin 3.3 Albumin/Globulin Ratio 0.8 L Triglycerides 63 Cholesterol 127 LDL Cholesterol 71 VLDL Cholesterol 13 HDL Cholesterol 43 Medical Necessity - Tobacco Use Smoking Status: Current every day smoker Tobacco Use: Cigarettes Assessment/Plan All Active Problems (Last Updated 07/04/18 @ 12:15 by Caryn Daly) H/O right coronary artery stent placement (Resolved 07/04/18) Atherosclerosis of coronary artery of [place] heart without angina pectoris (Acute) Acute inferior myocardial infarction (Acute 07/04/18) STEMI (ST elevation myocardial infarction) (Acute) Chest pain (Acute) This is a 63 years old male patient presented to the emergency room because of chest pain, found to have acute inferior ST elevation [place], 1 for emergent cardiac catheterization, found to have 100% occlusion of the RCA, 90% stenosis of the mid RCA and 70% stenosis of the mid left circumflex, status post successful drug eluting stent to distal RCA. #[address] elevation [place]: Status post drug-eluting stent to mid RCA, plan is for staged intervention as outpatient for LAD and left circumflex. He is on aspirin, statins, Coreg and Brilinta. His vital signs are stable. He has no more chest pain, asymptomatic. Routine blood work was unremarkable. Plan to continue same treatment, DC home tomorrow. #2 hyperlipidemia: Stable, continue statins. Lipid profile reviewed. #3 tobacco abuse: Counseled, recommended to quit smoking, on nicotine patch. #4 DVT prophylaxis: SCDs, ambulate. This note was generated with Streakation software. It may contain incorrect words, spelling, and punctuation that were not noted in checking the note before signing. Code Visit Inpatient E&M: 39880 Subs Hosp L2
[2018-07-05] MEDS: Atorvastatin Calcium 40 MG Tablet PO (21:38)
[2018-07-06] VITALS (7 sets, daily range): BP systolic 124–128; BP diastolic 65–82; PULSE 53–71; RESP 16–18; TEMP 36.4–36.5; O2SAT 98–100
[2018-07-06] MEDS: HYDROcodone Bitartrate/Apap 5/325 Tablet PO ×2 (05:43→11:45)
--- NOTE | 2018-07-06 08:02 | DCINST_ITS ---
- Discharge Diagnoses Current Active Problems: Current Active and Chronic Problems (Last Updated 07/04/18 @ 12:15 by Caryn Daly) Nicotine dependence (Chronic) Hyperlipidemia (Chronic) Chest pain (Acute) You will use the following diet at home:: Cardiac Your food should be the consistency of: Regular Discharge Activity: Return to Normal Activity, May not drive while taking narcotic pain medications. Weight Bearing Status: Weight bearing as tolerated Call your doctor if you observe: Fever of 101 or Higher, Shortness of breath, Dizziness, Fainting spells, Chest pain, Increased palpitations (irregular heartbeat), Uncontrolled pain Instructions: Discharge Instructions for Heart Attack Allergies/Adverse Reactions: Allergies LODINE Allergy (Uncoded 07/04/18 04:17) Hives Medications to take at Discharge Hydrocodone/Acetaminophen [Hydrocodone-Acetamin 5-325 mg] 1 tab PO Q4H PRN PRN 07/04/18 Multivitamin [Multiple Vitamins] 1 tab PO DAILY 07/04/18 Naproxen 1 tab PO BID 07/04/18 Aspirin E.C. [Ecotrin] 81 mg PO DAILY@0800 #90 tab 07/06/18 Atorvastatin Calcium [Lipitor] 40 mg PO QHS #90 tab 07/06/18 Carvedilol [Coreg (Beta Sandi)] 3.125 mg PO BID #90 tab 18 Ticagrelor [Brilinta] 90 mg PO BID #90 tab 07/06/18 The following prescriptions were given: Aspirin E.C. [Ecotrin] 81 mg PO DAILY@0800 #90 tab Atorvastatin Calcium [Lipitor] 40 mg PO QHS #90 tab Carvedilol [Coreg (Beta Sandi)] 3.125 mg PO BID #90 tab Ticagrelor [Brilinta] 90 mg PO BID #90 tab Primary Care Physician: Carolina Pablo MD [Primary Care Provider] - Please follow up with your Primary Care Physician in: 1 week. Test Results: Test results from this visit will be discussed in further detail at your follow- up appointment, if applicable. Please Follow Up With: Sacha Coles MD When: please call his office.
[2018-07-06] MEDS: Aspirin E.C. 81 MG Tablet PO (08:57)
[2018-07-06] MEDS: TICAGRELOR 90 MG TABLET PO (08:57)
[2018-07-06] MEDS: Carvedilol 3.125 MG TABLET PO (08:58)
--- NOTE | 2018-07-06 10:00 | EKG12_ITS ---
Test Reason : AM EKG Blood Pressure : / mmHG Vent. Rate : 058 BPM Atrial Rate : 058 BPM P-R Int : 144 ms QRS Dur : 092 ms QT Int : 462 ms P-R-T Axes : 047 -14 -44 degrees QTc Int : 453 ms Sinus bradycardia Inferior infarct , age undetermined Abnormal ECG When compared with ECG of 05-JUL-2018 05:01, MANUAL COMPARISON REQUIRED, DATA IS UNCONFIRMED Confirmed by BECCA PERALTA, GUSTAVO ([id number]), editor managing newspaper ALFREDO FARMER ([id number]) on 07/12/2018 2:00:45 PM Referred By: Sacha Coles Confirmed By:GUSTAVO HUDSON MD
--- NOTE | 2018-07-06 11:14 | CM.UR ---
Checked with [facility] on Brillinta and it will be $36/month. gave the patient the coupon for first month free and then $18 for 3 month supply. 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 Verb understanding. Lowell Bryan RN, CCM.
[2018-07-06] MEDS: LORazepam 1 MG Tablet PO (11:21)
--- NOTE | 2018-07-06 11:21 | PCM.DC.SUM ---
Discharge Date and Diagnosis - Problem List Patient Problems: Active and Suspected Problems (Last Updated 07/04/18 @ 12:15 by Caryn Daly) Chest pain (Acute) Date of Admission: 07/04/18 Date of Discharge: 07/06/18 - Primary Discharge Diagnosis Active and Suspected Problems (Last Updated 07/04/18 @ 12:15 by Caryn Daly) #[address] elevation [place], status post DENNIS to mid RCA. #2 multivessel coronary artery disease, plan for staged intervention as outpatient. - Secondary Discharge Diagnosis Chronic Problems (Last Updated 07/04/18 @ 12:15 by Caryn Daly) Nicotine dependence (Chronic) Hyperlipidemia (Chronic) Essential (primary) hypertension (Chronic) Hospital Course and Treatment Imaging Results: Clinical Impression(s) from Imaging Studies Chest X-Ray 07/04/18 04:25 IMPRESSION: There is borderline cardiac size. No pulmonary edema, congestive heart failure or confluent pneumonia. Other nonacute findings as outlined above. Electronically Signed: Katarina Gaona MD at 4:51 EST , Service support , Dr. Bedoya/Dr. Coles, cardiology. Operations: None Procedures: 2-D Echocardiogram, Cardiac catheterization, EKG Summary of Care Provided: Patient seen and examined on the day of discharge and appeared to be stable to be discharged home. He has no complaints, no chest pain or shortness of breath. No dizziness or lightheadedness upon standing and walking. His vital signs are stable. The patient is a 63 year old M presented to the ED because of chest pain, found to have ST elevation on inferior wall on EKG and his troponin was elevated. He was diagnosed with acute inferior ST elevation [place] and he underwent emergent cardiac catheterization. Cardiac catheterization revealed 100% occlusion of the RCA, 90% stenosis of the mid LAD and 70% stenosis of the mid left circumflex. He underwent successful drug eluting stent to RCA. He was treated with loading dose of Brilinta and started on aspirin, statins and beta-blockers. Chest x-ray showed no acute findings. 2D echocardiogram revealed ejection fraction of 50-55%, stage I diastolic dysfunction, mildly hypokinetic mid inferior wall and RVSP of 30. Cardiology is planning to do staged intervention to LAD and left circumflex in the near future as outpatient. Would initiation of aspirin, statin and beta blockers as well as Brilinta, patient had no more symptoms of chest pain and he denies any chest pain or dizziness. His vital signs been stable. Patient discharged home in a stable medical condition, discharged on aspirin, statins and Brilinta as well as Coreg, continued on his home medication without any changes, recommended follow-up with PCP in 1 week and follow-up with cardiology according to Dr. Coles recommendation. Patient Problems: Active and Suspected Problems (Last Updated 07/04/18 @ 12:15 by Caryn Daly) Chest pain (Acute) - Physical Exam General: Alert, Oriented x3, Cooperative, No apparent distress HEENT: Atraumatic, PERRLA, EOMI, Normocephalic Oral: Moist Mucosa, No Gingival or Mucosal Lesions/ Ulcerations Neck: Supple, No JVD, Negative Carotid Bruits, Trachea Midline, Thyroid Normal Size and Texture Lungs: Clear to auscultation, Normal air movement, No rhonchi, No wheeze, No rales Cardiovascular: Regular rate, Regular Rhythm, Normal S1, Normal S2, PMI Normal Abdomen: Bowel Sounds Present, Soft, Non Tender, Non-Distended, No Hepato-splenomegaly Extremities: No clubbing, No cyanosis, No edema Skin: No rashes, No breakdown Lymphatic: No Cervical, Supraclavicular, or Inguinal Adenopathy Neurological: Cranial nerves II-XII grossly intact, Neuro grossly intact Psych/Mental Status: Normal Affect, Appropriate, Alert and oriented to time, place, person, mood and affect Vital Signs Temp Pulse Resp BP Pulse Ox 97.6 F L 71 16 124/65 H 98 07/06/18 05:46 07/06/18 10:57 07/06/18 05:46 07/06/18 05:46 07/06/18 07:05 Oxygen Flow Rate (L/min) 2 Oxygen Delivery Method Room Air Weight: 217 lb 13.067 oz Body Mass Index (BMI) 31.4 Intake and Output for Last 24 Hours 07/04/18 07/05/18 07/06/18 23:59 23:59 23:59 Intake Total 1660 / 1660 1060 / 1060 100 / 100 Output Total 775 / 775 350 / 350 Balance 885 / 885 710 / 710 100 / 100 Discharge Activity: Return to Normal Activity, May not drive while taking narcotic pain medications. Weight Bearing Status: Weight bearing as tolerated Call your doctor if you observe: Fever of 101 or Higher, Shortness of breath, Dizziness, Fainting spells, Chest pain, Increased palpitations (irregular heartbeat), Uncontrolled pain Home Medications: Medications to take at Discharge Hydrocodone/Acetaminophen [Hydrocodone-Acetamin 5-325 mg] 1 tab PO Q4H PRN PRN 07/04/18 Multivitamin [Multiple Vitamins] 1 tab PO DAILY 07/04/18 Naproxen 1 tab PO BID 07/04/18 Aspirin E.C. [Ecotrin] 81 mg PO DAILY@0800 #90 tab 07/06/18 Atorvastatin Calcium [Lipitor] 40 mg PO QHS #90 tab 07/06/18 Carvedilol [Coreg (Beta Sandi)] 3.125 mg PO BID #90 tab 07/06/18 Ticagrelor [Brilinta] 90 mg PO BID #90 tab 07/06/18 Following Prescrptions Were Given to Patient: Aspirin E.C. [Ecotrin] 81 mg PO DAILY@0800 #90 tab Atorvastatin Calcium [Lipitor] 40 mg PO QHS #90 tab Carvedilol [Coreg (Beta Sandi)] 3.125 mg PO BID #90 tab Ticagrelor [Brilinta] 90 mg PO BID #90 tab Primary Care Physician: Carolina Pablo MD [Primary Care Provider] - Please follow up with your Primary Care Physician in: 1 week. Please Follow Up With: Sacha Coles MD When: please call his office. Patient Instructions: Discharge Instructions for Heart Attack Disposition: Home Minutes spent on discharge:: 32 Patient Condition:: Stable Medical Necessity - Tobacco Use Smoking Status: Current every day smoker Tobacco Use: Cigarettes Meaningful Use Info Meaningful Use Diagnoses (Choose all that apply): AMI - AMI Aspirin given w/in 24hrs of arrival?: Yes ASA at discharge?: Yes Statins at discharge?: Yes Santos/ARB at discharge?: No Reason Santos/ARB not ordered:: Not indicated Beta Sandi at discharge?: Yes Done w/ Acute [place] measure.: Yes Code Visit Inpatient E&M: 06885 Disch Hosp
--- NOTE | 2018-07-06 11:26 | DS.PCM_ITS ---
Discharge Date and Diagnosis - Problem List Patient Problems: Active and Suspected Problems (Last Updated 07/04/18 @ 12:15 by Caryn Daly) Chest pain (Acute) Date of Admission: 07/04/18 Date of Discharge: 07/06/18 - Primary Discharge Diagnosis Active and Suspected Problems (Last Updated 07/04/18 @ 12:15 by Caryn Daly) #[address] elevation [place], status post DENNIS to mid RCA. #2 multivessel coronary artery disease, plan for staged intervention as outpatient. - Secondary Discharge Diagnosis Chronic Problems (Last Updated 07/04/18 @ 12:15 by Caryn Daly) Nicotine dependence (Chronic) Hyperlipidemia (Chronic) Essential (primary) hypertension (Chronic) Hospital Course and Treatment Imaging Results: Clinical Impression(s) from Imaging Studies Chest X-Ray 07/04/18 04:25 IMPRESSION: There is borderline cardiac size. No pulmonary edema, congestive heart failure or confluent pneumonia. Other nonacute findings as outlined above. Electronically Signed: Katarina Gaona MD at 4:51 EST , Service support , Dr. Bedoya/Dr. Coles, cardiology. Operations: None Procedures: 2-D Echocardiogram, Cardiac catheterization, EKG Summary of Care Provided: Patient seen and examined on the day of discharge and appeared to be stable to be discharged home. He has no complaints, no chest pain or shortness of breath. No dizziness or lightheadedness upon standing and walking. His vital signs are stable. The patient is a 63 year old M presented to the ED because of chest pain, found to have ST elevation on inferior wall on EKG and his troponin was elevated. He was diagnosed with acute inferior ST elevation [place] and he underwent emergent cardiac catheterization. Cardiac catheterization revealed 100% occlusion of the RCA, 90% stenosis of the mid LAD and 70% stenosis of the mid left circumflex. He underwent successful drug eluting stent to RCA. He was treated with loading dose of Brilinta and started on aspirin, statins and beta-blockers. Chest x-ray showed no acute findings. 2D echocardiogram revealed ejection fraction of 50- 55%, stage I diastolic dysfunction, mildly hypokinetic mid inferior wall and RVSP of 30. Cardiology is planning to do staged intervention to LAD and left circumflex in the near future as outpatient. Would initiation of aspirin, statin and beta blockers as well as Brilinta, patient had no more symptoms of chest pain and he denies any chest pain or dizziness. His vital signs been stable. Patient discharged home in a stable medical condition, discharged on aspirin, statins and Brilinta as well as Coreg, continued on his home medication without any changes, recommended follow-up with PCP in 1 week and follow-up with cardiology according to Dr. Coles recommendation. Patient Problems: Active and Suspected Problems (Last Updated 07/04/18 @ 12:15 by Caryn Daly) Chest pain (Acute) - Physical Exam General: Alert, Oriented x3, Cooperative, No apparent distress HEENT: Atraumatic, PERRLA, EOMI, Normocephalic Oral: Moist Mucosa, No Gingival or Mucosal Lesions/ Ulcerations Neck: Supple, No JVD, Negative Carotid Bruits, Trachea Midline, Thyroid Normal Size and Texture Lungs: Clear to auscultation, Normal air movement, No rhonchi, No wheeze, No rales Cardiovascular: Regular rate, Regular Rhythm, Normal S1, Normal S2, PMI Normal Abdomen: Bowel Sounds Present, Soft, Non Tender, Non-Distended, No Hepato- splenomegaly Extremities: No clubbing, No cyanosis, No edema Skin: No rashes, No breakdown Lymphatic: No Cervical, Supraclavicular, or Inguinal Adenopathy Neurological: Cranial nerves II-XII grossly intact, Neuro grossly intact Psych/Mental Status: Normal Affect, Appropriate, Alert and oriented to time, place, person, mood and affect Vital Signs Temp Pulse Resp BP Pulse Ox 97.6 F L 71 16 124/65 H 98 07/06/18 05:46 07/06/18 10:57 07/06/18 05:46 07/06/18 05:46 07/06/18 07:05 Oxygen Flow Rate (L/min) 2 Oxygen Delivery Method Room Air Weight: 217 lb 13.067 oz Body Mass Index (BMI) 31.4 Intake and Output for Last 24 Hours 07/04/18 07/05/18 07/06/18 23:59 23:59 23:59 Intake Total 1660 / 1660 1060 / 1060 100 / 100 Output Total 775 / 775 350 / 350 Balance 885 / 885 710 / 710 100 / 100 Discharge Activity: Return to Normal Activity, May not drive while taking narcotic pain medications. Weight Bearing Status: Weight bearing as tolerated Call your doctor if you observe: Fever of 101 or Higher, Shortness of breath, Dizziness, Fainting spells, Chest pain, Increased palpitations (irregular heartbeat), Uncontrolled pain Home Medications: Medications to take at Discharge Hydrocodone/Acetaminophen [Hydrocodone-Acetamin 5-325 mg] 1 tab PO Q4H PRN PRN 07/04/18 Multivitamin [Multiple Vitamins] 1 tab PO DAILY 07/04/18 Naproxen 1 tab PO BID 07/04/18 Aspirin E.C. [Ecotrin] 81 mg PO DAILY@0800 #90 tab 07/06/18 Atorvastatin Calcium [Lipitor] 40 mg PO QHS #90 tab 07/06/18 Carvedilol [Coreg (Beta Sandi)] 3.125 mg PO BID #90 tab 07/06/18 Ticagrelor [Brilinta] 90 mg PO BID #90 tab 07/06/18 Following Prescrptions Were Given to Patient: Aspirin E.C. [Ecotrin] 81 mg PO DAILY@0800 #90 tab Atorvastatin Calcium [Lipitor] 40 mg PO QHS #90 tab Carvedilol [Coreg (Beta Sandi)] 3.125 mg PO BID #90 tab Ticagrelor [Brilinta] 90 mg PO BID #90 tab Primary Care Physician: Carolina Pablo MD [Primary Care Provider] - Please follow up with your Primary Care Physician in: 1 week. Please Follow Up With: Sacha Coles MD When: please call his office. Patient Instructions: Discharge Instructions for Heart Attack Disposition: Home Minutes spent on discharge:: 32 Patient Condition:: Stable Medical Necessity - Tobacco Use Smoking Status: Current every day smoker Tobacco Use: Cigarettes Meaningful Use Info Meaningful Use Diagnoses (Choose all that apply): AMI - AMI Aspirin given w/in 24hrs of arrival?: Yes ASA at discharge?: Yes Statins at discharge?: Yes Santos/ARB at discharge?: No Reason Santos/ARB not ordered:: Not indicated Beta Sandi at discharge?: Yes Done w/ Acute [place] measure.: Yes Code Visit Inpatient E&M: 84776 Disch Hosp
--- NOTE | 2018-07-06 12:25 | PCM.PN.CARD ---
Subjectve: No complaints. No chest pain. No shortness of breath. Ambulating. Objective: Vital Signs Temp Pulse Resp BP Pulse Ox 97.7 F L 68 18 128/82 H 100 07/06/18 11:45 07/06/18 11:45 07/06/18 11:45 07/06/18 11:45 07/06/18 11:45 Oxygen Flow Rate (L/min) 2 Oxygen Delivery Method Room Air Weight: 98.8 kg Body Mass Index (BMI) 31.4 Intake and Output for Last 24 Hours 07/04/18 07/05/18 07/06/18 23:59 23:59 23:59 Intake Total 1660 / 1660 1060 / 1060 100 / 100 Output Total 775 / 775 350 / 350 Balance 885 / 885 710 / 710 100 / 100 General: Awake, Alert, Oriented x 3 HEENT: Atraumatic Oral: Moist Mucosa Neck: Supple, No JVD Lungs: Clear to auscultation Cardiovascular: Regular Rhythm, Normal S1, Normal S2 Abdomen: Bowel Sounds Present, Soft Extremities: No edema Rhythm: EKG: ECHO: Stress Test: Cardiac Cath: PCI: CT Surgery: Holter monitor: EPS: PPM: CXR: Chest CT Scan: Medical Necessity - Tobacco Use Smoking Status: Current every day smoker Tobacco Use: Cigarettes Assessment/Plan 1. Inferior ST elevation myocardial infarction. Status post drug-eluting stent placement to the right coronary artery. Stable. Asymptomatic. Continue aspirin lifelong. Brilinta for at least one year. Continue beta blockers. Overall left ventricular systolic ejection fraction normal. 2. Residual lesions in the left anterior descending artery and mid left circumflex artery. For staged intervention as outpatient. 3. Dyslipidemia. Lipitor. 4. Nicotine dependence. Counseled. Patient agrees to quit smoking. Okay to PA home.
--- NOTE | 2018-07-06 12:32 | NURSING ---
Addendum entered by Ashley Rogel 07/06/18 12:52: family states they called PCP office back and was able to get an appt for 07/08 @ 0820. notified hospitalist and again asked for script for ativan until pt is able to see PCP. MD sent up script for 5 pills for ativan until pt is able to see PCP. Original Note: pt inquiring about script for ativan while reviewing discharge paperwork. Notified MD who stated it has to be done by PCP with follow up. Informed patient and family called pt's PCP to make appt and was not able to get appt until 07/18. Family stated PCP's office told them to ask the hospitalist to write a script until pt would be able to come for f/u with PCP. Cardiology notified as well and would not write script for ativan.
== END 2018-07-06 12:45 | disposition home or self-care (01) | DRG 247 ==
LOC: ED 04:48 → ICU 05:30 → PCU 07-05 14:15
PROVIDERS: Internal Medicine Cardiovascular Disease; Admitting Provider Hospitalist; Emergency Provider Emergency Medicine; Family Provider Internal Medicine; PCP Internal Medicine; Referring Provider Internal Medicine Cardiovascular Disease; Visit Provider Hospitalist
DX: I21.19 ST elevation (STEMI) myocardial infarction involving other coronary artery of inferior wall (principal); I47.2 Ventricular tachycardia; E78.5 Hyperlipidemia, unspecified; I10 Essential (primary) hypertension; F17.210 Nicotine dependence, cigarettes, uncomplicated; Z79.899 Other long term (current) drug therapy; I25.10 Atherosclerotic heart disease of native coronary artery without angina pectoris; F41.9 Anxiety disorder, unspecified
CPT/HCPCS: 71045; 80048; 80053; 80061; 83735; 84484; 85025; 85027; 85347; 85610; 85730; 92941; 93005; 93306; 93454; 97161; 97165; 97530; 97802; 99282; 99406; C1874; J7030; Q9967; A4216; C1725; C1769; C1887; C1894; C9606; J0583

== ENCOUNTER 2018-07-24 06:28 | Day surgery (SDC) | payer BC, SELFPAY ==
[2018-07-04 10:10] VITALS: BMI 31.4
[2018-07-16 11:00] VITALS: BMI 31.2
[2018-07-23 08:24] VITALS: BMI 31.2
[2018-07-24] VITALS (22 sets, daily range): BP systolic 113–154; BP diastolic 49–68; PULSE 49–65; RESP 12–21; TEMP 36.7–37.2; O2SAT 97–100; BMI 31.2
--- NOTE | 2018-07-24 09:55 | CL.I_ITS ---
Patient Name: ODALIS COAT Study Date: 07/24/2018 Performing: Sacha Coles MD Ht: 71 inches 180 cm : 1955 Wt: 225.2 lbs 102 kg Age: 63 Gender: male BSA: 2.21 PROCEDURE(S) PERFORMED [id number] W OR WO PTCA, SINGLE CORONARY ARTERY [id number] W OR WO PTCA, SINGLE CORONARY ARTERY [id number], CORONARY OR GRAFT, INITIAL VESSEL CLINICAL PROFILE AND CO-MORBIDITIES Indications: Worsening Angina, Stable Known CAD Heart Failure: None Stress/Imaging Stress/Image Study Performed: No Angina Classification Anginal Classification w/in 2 Weeks: CCS III CAD Presentations: Unstable angina. Comorbidities/Risk Factors: Current/Recent Smoker (< 1year) Hypertension Dyslipidemia Prior PCI CONCLUSIONS Successful PTCA/DENNIS of mid LAD with a 2.25 x 20 Promus Synergy, post dilated with a 2.5 x 8 NC balloo n; 85%-->0%, no dissection. Successful PTCA/DENNIS mid LCX after FFR of 0.81, utilizing a 3.0 x 28 Promus Synergy, post dilated thro ughout with 3.25 x 12 NC; 75%-->0%, no dissection. RECOMMENDATIONS Highly recommend quitting all tobacco products Follow up with primary lab courier Risk factor modification ASA Indefinitley Plavix for at least 12 months Routine post interventional care Refer for Outpatient Cardiac Rehab Manual sheath removal per protocol Follow up with Dr. Coles Successful Mynx closure of RFA. DESCRIPTION OF PROCEDURE The patient arrived to the procedure lab. The risks and benefits of the procedure as well as a full d escription of our services here and current unavailability of surgical backup were fully explained to the patient and/or their significant other prior to the catheterization. The Timeout was completed, verifying the correct patient and procedure. The patient's procedural site was prepped and draped in the usual fashion. Local anesthetic was given subcutaneously to right groin region with Lidocaine 2%. Using a modified Seldinger technique, arterial access was obtained via the right femoral artery, a 6 Fr sheath was inserted.. EBU 3.5 Guide catheter was inserted and engaged into the LCA. Angiogram performed pre balloon dil atation. BMW Guide wire was advanced to the LAD. emerge 2.0 x12 Balloon catheter was inserted. BMW Gu hossein wire was inserted as a mitra wire PTCA balloon inflated at 8 atms for 12 secs. PTCA balloon infla brigido at 8 atms for 10 secs. Angiogram performed post balloon dilatation. synergy 2.25 x 20 Drug Elutin g stent was advanced across the lesion in the LAD, mid. Angiogram performed pre stent deployment. Ang iogram performed post stent deployment. 2.5 x 8 NC emerge Balloon catheter was inserted post stent. A ngiogram performed post balloon dilatation. The FFR/iFR wire was inserted. FFR Ratio Baseline: 0.99 A denosine was then given per protocol. FFR Ratio post Adenosine: 0.81 2.0 x 12 emerge Balloon catheter was advanced across lesion in the circumflex, mid. Angiogram performed pre balloon dilatation. PTCA balloon inflated at 10 atms for 15 secs. 3.0 x 28 synergy Drug Eluting stent was advanced across the lesion in the circumflex, mid. Angiogram performed pre stent deployment. Angiogram perform ed post stent deployment. 3.25 x 12 NC emerge Balloon catheter was inserted post stent. Angiogram per formed post balloon dilatation. The arterial sheath was pulled and a Mynx closure device was deploye d for hemostasis. Rt groin area was re prepped with chloraprep prior to using mynx INTERVENTION INFORMATION LESION SITE: LAD (Mid) Lesion Complexity: High/C, lesion at bifurcation: Yes, thrombus present: No, lesion length: 20 mm, cu lprit lesion: Yes Pre Stenosis: 85 % Pre intervention RANDY flow: 3 PROCEDURE: Drug Eluting Stent with pre and post dilatation Post Stenosis: 0 % Post intervention RANDY flow: 3 Lesion Devices: Burgess .014 BMW Kerrick Straight 190cm Medtronic 6 Fr EBU3.5 100cm Guide Catheter [place] Sci EMERGE MR 2.00x12 BALLOON [place] Sci Synergy MR DENNIS 2.25x20 [place] Sci NC EMERGE MR 2.50x08 BALLOON LESION SITE: Circumflex (Mid) Lesion Complexity: High/C, lesion at bifurcation: No, thrombus present: No, lesion length: 28 mm, cul prit lesion: No Pre Stenosis: 75 % Pre intervention RANDY flow: 3 PROCEDURE: FFR Drug Eluting Stent with pre and post dilatation FFR Post Stenosis: 0 % Post intervention RANDY flow: 3 Lesion Devices: [place] Sci EMERGE MR 2.00x12 BALLOON IGT Devices ( Formerly [employer]) Coronary FFR Wire [place] Sci Synergy MR DENNIS 3.00x28 [place] Sci NC EMERGE MR 3.25x12 BALLOON COMPLICATIONS No Complications PROCEDURE MEDICATIONS Versed 1 mg IV Fentanyl 25 mcg IV Fentanyl 25 mcg IV Fentanyl 25 mcg IV Oxygen: 2 L/min via nasal cannula Adenosine drip for FFR 28.6 ml IV @ 07/24/2018 09:03:48 Heparin 6000 unit(s) IV 07/24/2018 08:40:10 Nitro 200 mcg IC 07/24/2018 08:42:22 Nitro 200 mcg IC 07/24/2018 08:42:22 Nitro 200 mcg IC 07/24/2018 08:53:02 SUMMARY OF HEMODYNAMIC DATA Time AIR REST ECG 07:02:27 AO 151/72 (101) SA 08:40:51 AO 112/62 (80) 08:55:24 Signed By Sacha Coles MD On 07/24/2018 09:54:37 Sacha Coles MD
--- NOTE | 2018-07-24 09:56 | EKG12_ITS ---
Test Reason : POST STENT Blood Pressure : / mmHG Vent. Rate : 052 BPM Atrial Rate : 052 BPM P-R Int : 158 ms QRS Dur : 096 ms QT Int : 460 ms P-R-T Axes : 055 -14 -27 degrees QTc Int : 427 ms Sinus bradycardia Inferior infarct (cited on or before 04-JUL-2018) Abnormal ECG When compared with ECG of 06-JUL-2018 06:04, No significant change was found Confirmed by BECCA PERALTA, GUSTAVO ([id number]), scientific editor ALFREDO FARMER ([id number]) on 07/26/2018 3:17:15 PM Referred By: Sacha Coles Confirmed By:GUSTAVO HUDSON MD
--- NOTE | 2018-07-24 10:10 | CRPHASE1 ---
Patient Data/Charges [employer]:: Sacha Coles Phase I Charge:: Level I - Education - HE WAS PREVIOUSLY SEEN FOR PHASE I IN JUNE Risk Factors/Lifestyle Family History: Family History (Last Reviewed 07/16/18 @ 10:48 by Gabi Moura) Father Heart disease Mother Cancer
[2018-07-24] MEDS: 0.9% Normal Saline 1,000 ML 150 ML IV (10:12)
[2018-07-24] MEDS: HYDROcodone Bitartrate/Apap 5/325 Tablet PO ×3 (10:24→19:52)
[2018-07-24] MEDS: LORazepam 1 MG Tablet PO ×2 (10:25→19:52)
[2018-07-24 12:11] LABS: ACT Activated Clotting Time 180 sec (74-137)
[2018-07-24] MEDS: diazePAM 5 MG Tablet PO (15:11)
[2018-07-24] MEDS: Multivitamins,Therapeutic Tablet 1 TABLET PO (15:12)
--- NOTE | 2018-07-24 16:40 | PCM.DC.CCA ---
Discharge Diet: Low fat/ Low Cholesterol Discharge Activity: Return to Normal Activity May shower in (days): 1 May resume sexual activity in: 1-2 weeks Lifting Restrictions: Do not lift anything greater than 10 pounds for 3 days Call your doctor if your incision/area has: Continuous Slow Oozing, Sudden Increased Bleeding, Increased Pain/ Swelling, Increased Redness, Foul Smelling Discharge, Swelling at the incision site Call your doctor if you observe: Fever of 101 or Higher, Shortness of breath, Chest pain Remove Dressing in (days):: 1 Cleanse incision/area with: Soap & Water Additional Instructions: You will keep your August 08 appointment at 11:[address] Coles. You will continue with Aspirin and Brilinta therapy. You will remain on Brilinta for at least one year. If anyone asks you to stop this medication, please call the [facility] office first at [phone] Allergies/Adverse Reactions: Allergies etodolac Allergy (Severe, Verified 07/15/18 18:54) Hives Medications to take at Discharge Hydrocodone/Acetaminophen [Hydrocodone-Acetamin 5-325 mg] 1 tab PO Q4H PRN PRN 07/04/18 Multivitamin [Multiple Vitamins] 1 tab PO DAILY 07/04/18 Lorazepam [Ativan] 1 mg PO DAILY PRN PRN #5 tab 07/06/18 aspirin 81 mg tablet,delayed release 81 mg PO DAILY@0800 #90 tab 07/16/18 atorvastatin 40 mg tablet 40 mg PO QHS #90 tab 07/16/18 carvedilol 3.125 mg tablet 3.125 mg PO BID #180 tab 07/16/18 hydroxyzine pamoate 25 mg capsule 25 mg PO TID-QID PRN 07/16/18 ticagrelor 90 mg tablet 90 mg PO BID #180 tab 07/16/18 Primary Care Physician: Carolina Pablo MD [Primary Care Provider] - Test Results: Test results from this visit will be discussed in further detail at your follow-up appointment, if applicable. Please Follow Up With: Dr. Coles When: 08/08/2018 at 11:30 Proposed Discharge Date: 07/25/18 Cardiac Rehabilitation Info Cardiac Rehabilitation Program Information: Cardiac Rehabilitation is important for patients like you who are recovering from a heart problem. Cardiac rehabilitation programs are recognized as integral to the continued care of the patient with coronary heart disease. The cardiac rehabilitation program is designed to optimize a patient's physical, psychological, and social functioning. Health manager progressive care work in cardiac rehabilitation programs and assist you with getting the treatments you need to get stronger and healthier - like exercise, healthy eating habits, and medications. Cardiac rehabilitation has been show to help people with heart problems live longer and have better life enjoyment than people who do not go to cardiac rehabilitation. Please contact the Cardiac Rehabilitation Program at [facility] at in two weeks if you have not heard from them.
--- NOTE | 2018-07-24 16:44 | DCINST_ITS ---
Discharge Diet: Low fat/ Low Cholesterol Discharge Activity: Return to Normal Activity May shower in (days): 1 May resume sexual activity in: 1-2 weeks Lifting Restrictions: Do not lift anything greater than 10 pounds for 3 days Call your doctor if your incision/area has: Continuous Slow Oozing, Sudden Increased Bleeding, Increased Pain/ Swelling, Increased Redness, Foul Smelling Discharge, Swelling at the incision site Call your doctor if you observe: Fever of 101 or Higher, Shortness of breath, Chest pain Remove Dressing in (days):: 1 Cleanse incision/area with: Soap & Water Additional Instructions: You will keep your August 08 appointment at 11:[address] Coles. You will continue with Aspirin and Brilinta therapy. You will remain on Brilinta for at least one year. If anyone asks you to stop this medication, please call the [facility] office first at [phone] Allergies/Adverse Reactions: Allergies etodolac Allergy (Severe, Verified 07/15/18 18:54) Hives Medications to take at Discharge Hydrocodone/Acetaminophen [Hydrocodone-Acetamin 5-325 mg] 1 tab PO Q4H PRN PRN 07/04/18 Multivitamin [Multiple Vitamins] 1 tab PO DAILY 07/04/18 Lorazepam [Ativan] 1 mg PO DAILY PRN PRN #5 tab 07/06/18 aspirin 81 mg tablet,delayed release 81 mg PO DAILY@0800 #90 tab 07/16/18 atorvastatin 40 mg tablet 40 mg PO QHS #90 tab 07/16/18 carvedilol 3.125 mg tablet 3.125 mg PO BID #180 tab 07/16/18 hydroxyzine pamoate 25 mg capsule 25 mg PO TID-QID PRN 07/16/18 ticagrelor 90 mg tablet 90 mg PO BID #180 tab 07/16/18 Primary Care Physician: Carolina Pablo MD [Primary Care Provider] - Test Results: Test results from this visit will be discussed in further detail at your follow- up appointment, if applicable. Please Follow Up With: Dr. Coles When: 08/08/2018 at 11:30 Proposed Discharge Date: 07/25/18 Cardiac Rehabilitation Info Cardiac Rehabilitation Program Information: Cardiac Rehabilitation is important for patients like you who are recovering from a heart problem. Cardiac rehabilitation programs are recognized as integral to the continued care of the patient with coronary heart disease. The cardiac rehabilitation program is designed to optimize a patient's physical, psychological, and social functioning. Health health care assistant work in cardiac rehabilitation programs and assist you with getting the treatments you need to get stronger and healthier - like exercise, healthy eating habits, and medications. Cardiac rehabilitation has been show to help people with heart problems live longer and have better life enjoyment than people who do not go to cardiac rehabilitation. Please contact the Cardiac Rehabilitation Program at [facility] at in two weeks if you have not heard from them.
[2018-07-24] MEDS: Carvedilol 3.125 MG TABLET PO (21:34)
[2018-07-24] MEDS: Atorvastatin Calcium 40 MG Tablet PO (21:34)
[2018-07-24] MEDS: TICAGRELOR 90 MG TABLET PO (21:34)
[2018-07-25] VITALS (15 sets, daily range): BP systolic 117–155; BP diastolic 56–92; PULSE 47–63; RESP 11–16; TEMP 36.3–36.6; O2SAT 12–100
[2018-07-25] MEDS: HYDROcodone Bitartrate/Apap 5/325 Tablet PO ×2 (03:19→08:28)
[2018-07-25 04:08] LABS: Hematocrit 36.8 % (40-54); Hemoglobin 12.8 g/dl (13.0-16.5); Mean Corp Hgb Conc 34.8 g/gl (32-36); Mean Corpuscular Hgb 30.8 pg (27.0-32.0); Mean Corpuscular Volume 88.5 fL (80-94); Mean Platelet Vol. 9.9 fl (6.2-12.0); Platelet Count 243 K/mm3 (150-450); RBC Distribution Width CV 12.4 % (11.6-14.6); RBC Distribution Width SD 39.5 fl (35.1-43.9); Red Blood Count 4.16 M/mm3 (4.6-6.2); White Blood Count 5.5 K/mm3 (4.4-11.0)
[2018-07-25 04:11] LABS: Scan Indicated on CBC? Y/N NO
[2018-07-25 04:24] LABS: Anion Gap 8 (5-15); BUN 15 mg/dL (7-18); BUN/Creat Ratio 20.7 RATIO (10-20); Calcium,Total 8.5 mg/dL (8.5-10.1); Chloride 106 mmol/L (98-107); Creatinine, Serum 0.72 mg/dL (0.70-1.30); EST Glomerular Filtration Rate 117 mL/min (>60); Est Glom Filt Rate - Afr Amer 141 mL/min (>60); Estimated Creatinine Clearance 114.75 ml/min; Glucose 107 mg/dL (74-106); Potassium 4.2 mmol/L (3.5-5.1); Sodium Level 141 mmol/L (136-145)
[2018-07-25] MEDS: Multivitamins,Therapeutic Tablet 1 TABLET PO (08:24)
[2018-07-25] MEDS: Carvedilol 3.125 MG TABLET PO (08:24)
[2018-07-25] MEDS: TICAGRELOR 90 MG TABLET PO (08:25)
[2018-07-25] MEDS: Aspirin E.C. 81 MG Tablet PO (08:25)
[2018-07-25] MEDS: LORazepam 1 MG Tablet PO (09:35)
--- NOTE | 2018-07-25 09:59 | PCM.PN.CARD ---
Subjectve: Patient doing very well, in fact feels much better since his angioplasty yesterday. Right groin is clean/dry/intact, without evidence of thrills, bruits or hematoma. Telemetry showed normal sinus rhythm, no arrhythmias. Hemoglobin and creatinine are within nominal limits. EKG shows normal sinus rhythm with old inferior wall myocardial infarction, no acute changes. Objective: Vital Signs Temp Pulse Resp BP Pulse Ox 97.3 F L 62 11 L 155/88 H 98 07/25/18 08:30 07/25/18 09:00 07/25/18 09:00 07/25/18 08:30 07/25/18 09:00 Oxygen Delivery Method Room Air Weight: 225 lb 1.471 oz Body Mass Index (BMI) 31.2 Intake and Output for Last 24 Hours 07/23/18 07/24/18 07/25/18 23:59 23:59 23:59 Intake Total 1979 / 1979 120 / 120 Output Total 1500 / 1500 520 / 520 Balance 480 / 480 -400 / -400 General: Awake, Alert, Oriented x 3 HEENT: PERRL, EOMI, Sclera Non Icteric Neck: Supple, Good ROM, No Lymph Node Enlargement Lungs: Clear to auscultation Cardiovascular: Regular Rhythm, Normal S1, Normal S2, No Murmurs, No Rubs, No Gallops Vascular: No Carotid Bruits, Normal Femoral Pulses, Normal Radial Pulses, Normal Dorsalis Pedal Pulse, Normal Posterior Tibial Pulses Abdomen: Bowel Sounds Present, Soft, Non Tender, No HSM, No Organomegaly Extremities: No Cyanosis, No Clubbing, No edema Neurological: No Focal Motor or Sensory Deficit 07/25/18 04:00: Sodium 141, Potassium 4.2, Chloride 106, Carbon Dioxide 27.0, Anion Gap 8, BUN 15, Creatinine 0.72, Est GFR (MDRD) Af Amer 141, Est GFR (MDRD) Non-Af 117, BUN/Creatinine Ratio 20.7 H, Glucose 107 H, Calcium 8.5 07/25/18 04:00: WBC 5.5, RBC 4.16 L, Hgb 12.8 L, Hct 36.8 L, MCV 88.5, MCH 30.8, MCHC 34.8, RDW 12.4, RDW Differential 39.5, Plt Count 243, MPV 9.9 Rhythm: EKG: ECHO: Stress Test: Cardiac Cath: PCI: CT Surgery: Holter monitor: EPS: PPM: CXR: Chest CT Scan: Medical Necessity - Tobacco Use Smoking Status: Former smoker Assessment/Plan 1. Coronary artery disease: Patient is status post angioplasty and stenting of his mid LAD followed by FFR evaluation of his left circumflex which was found to be abnormal, with subsequent stenting as well. The patient feels much better since his stenting yesterday, and is doing quite well. He is remained chest pain-free and his groin is stable. I recommended the patient continue his current aspirin, Brilinta, antihypertensives, and statin based medications. Patient may be enrolled in cardiac rehab going forward. 2. Hyperlipidemia: We will repeat lipid profile in 2 weeks time, continue statin based medications. 3. Tobacco cessation: I once again had a long and thorough discussion with the patient regarding tobacco cessation, and he agrees to quit once he starts cardiac rehab. 4. Patient may be discharged home and follow-up with Dr. Coles going forward. Code Visit Inpatient E&M: 82324 Subs Hosp L2
--- NOTE | 2018-07-25 10:00 | CASEMGMT ---
MARTY BURNETTE NOTE: *Pt being discharged on Brilinta. Pt is already on Brilinta, which was started after his prior PCI in June. Pt reports to MARTY BURNETTE that he took the Brilinta Savings card in to his pharmacy that was provided by MARTY BURNETTE after his last admission and that they did not use the savings card to provide him a discount. Call placed to [facility] to inquire about this. Spoke with pharmacist, Nena. She researched into his account and states is unsure of why the discount card was not used/applied. MARTY BURNETTE provided her with information from a new Brilinta Savings Card and she stated she will flag pt's account so that when he comes in to picker his next refill, they can begin using the Savings Card. Pt given the card to take to [facility], in addition to a Brilinta Hotline number if he had any additional problems/concerns with getting the discount. Pt voiced much appreciation for the help in this matter. Pt stated his [id number] cost for the Brilinta was $35/month, but stated that even saving $30/month would be of great help. *Inquired with pt if he was able to get the AD completed his last admission. Pt stated he did not fill out the paperwork at that time and that he has an appt with his dental tech to have paperwork completed. Pt made aware LW and HCPOA can be completed by SW here @ [facility] and that it is a free service. Made aware SW does not handle Financial POA or Will over finances, but only Health Care POA and LW. Pt stated he is interested in talking with SW about this. Call placed to Sarah BEASLEY, and left message with her re: pt's request to talk with SW. *Pt denies having any questions or concerns at this time. Denies any needs on discharge. Independent with ADL's and home mgmt tasks, is employed, and drives. Jen DANIELLE RN, CM
--- NOTE | 2018-07-25 11:16 | CASEMGMT ---
Social Work Unit - CVICU Reason for referral: advanced directives Summary: Met with patient who is being discharged today. Patient confirms interest having information about power of deputy attorney general. Patient voices thought that power of deputy attorney general deals with finances. Educated patient that advanced directives the hospital social workers assist with are health care related only. Introduced to POA for health care as well as living will. Patient reports plan to see an deputy attorney general soon to make a Will. Educated patient that can talk with deputy attorney general about a financial power of deputy attorney general if so wishes, as well that the deputy attorney general can assist with health care POA completion. Educated patient that, if patient so chooses, can also come back to [facility] and meet with a social welfare administrator as an outpatient to complete health care advanced directives. Patient expresses understanding. Through conversation patient shares that he does live alone, but patient's older brother is staying with patient until the springtime, just to help out and provide patient more support. Patient reports to get along well with the brother, so this is not a stressor. Patient reports to be one of 10 siblings. Patient identifies having an exwife who is supportive and who patient would actually make health care power of deputy attorney general. Patient reflective about health issues, life in general since having heart issues. Patient acknowledges that has had moments of depression and anxiety since heart issues last month, mostly anxiety and the negative thinking loops of what if and what could have happened. Patient reports has been reading more and using deep breathing to cope. Patient is future oriented, looking forward to returning to work, getting into cardiopulmonary rehab and then to use the gym at his work. Patient reports to have hobbies, likes to stay active, has a cat at home. Patient reports hope for recovery from this illness and reports that it was an easy decision to quit smoking if that meant for a chance at a longer and better quality of life. Assessment/Observations: Patient pleasant, friendly, cooperative and willing to engage in conversation with this property underwriter as evidenced by willingness to share (and spontaneously sharing) experiences since heart issues were identified in June. Patient receptive to discussion on coping skills and seems to understand the importance of self care. Patient held good eye contact, seeming to be teary eyed at one point in discussion (at appropriate time), mood appropriate and affect congruent to content. Discussed with patient additional techniques to help manage anxiety, and validated patient's efforts at deep breathing and other coping skills being used. Broached with patient counseling as an option if patient finds that later on would like to have additional support outside of current support system. Patient receptive to taking handout this property underwriter offered on grounding techniques, admitting that brain does get into a negative thought loop which impacts getting to sleep. Patient reports willingness to try new things fo relaxation. Patient expresses appreciation for time and support provided today. Plan: Home with information on advanced directives, social service rac card with number to call if chooses in the future to utilize [facility] social work for advanced directive completion, and hand out on grounding technique to try at home. Patient will have support from brother and from exwife who lives locally. -ALLISON Arredondo, SLASHER RUNNER
== END 2018-07-25 10:02 | disposition home or self-care (01) ==
LOC: CLSP 06:30 → ICU 09:42
PROVIDERS: Family Provider Internal Medicine; PCP Internal Medicine; Referring Provider Internal Medicine Cardiovascular Disease; Visit Provider Internal Medicine Cardiovascular Disease
DX: I25.110 Atherosclerotic heart disease of native coronary artery with unstable angina pectoris (principal); I21.19 ST elevation (STEMI) myocardial infarction involving other coronary artery of inferior wall; I10 Essential (primary) hypertension; E78.5 Hyperlipidemia, unspecified; I73.00 Raynaud's syndrome without gangrene; Z79.82 Long term (current) use of aspirin; Z79.899 Other long term (current) drug therapy; Z95.5 Presence of coronary angioplasty implant and graft; Z87.891 Personal history of nicotine dependence
CPT/HCPCS: 80048; 85027; 85347; 92928; 93005; 93571; 99152; 99153; C1760; J0153; J7030; J7040; C1725; C1769; C1874; C1887; C9600; Q9967

== ENCOUNTER → 2018-08-06 09:24 | Outpatient (CLI) | payer BC, SELFPAY ==
[2018-07-04 10:10] VITALS: BMI 31.4
[2018-07-24 10:00] VITALS: BMI 31.2
--- NOTE | 2018-08-06 10:17 | PCM.CR.HP2 ---
CR - History & Physical - General Arrival date:: 08/06/18 Arrival time:: 09:30 Date of Referral:: 07/24/18 Date of CR Evaluation:: 08/06/18 Referring Physician: DR. ATKINS Primary Diagnosis: PCI WITH STENT - History of Present Cardiac Event Onset Date: Enter Onset Date of cardiac illnesses in Comment field below Current stable Angina Pectoris:: No Acute Myocardial Infarction within 12 months:: Yes Coronary Artery Bypass Graft:: No Heart valve replacement or repair:: No PTCA or coronary stenting:: Yes Heart or Heart-Lung Transplant:: No Heart Failure EF <35%:: No - 50-55% Type of Symptoms:: SEVERE INDIGESTION, ARM PAIN, N&V, DIAPHORESIS Interventions with present event:: PCI WITH STENT 5 Were there any complications?: NONE - Medications Home Medications: Ambulatory Orders Medication Instructions Recorded Hydrocodone/Acetaminophen 1 tab PO Q4H PRN PRN 07/04/18 [Hydrocodone-Acetamin 5-325 mg] Multivitamin [Multiple Vitamins] 1 tab PO DAILY 07/04/18 Lorazepam [Ativan] 1 mg PO DAILY PRN PRN #5 tab 07/06/18 aspirin 81 mg tablet,delayed 81 mg PO DAILY@0800 #90 tab 07/16/18 release atorvastatin 40 mg tablet 40 mg PO QHS #90 tab 07/16/18 carvedilol 3.125 mg tablet 3.125 mg PO BID #180 tab 07/16/18 hydroxyzine pamoate 25 mg capsule 25 mg PO TID-QID PRN 07/16/18 ticagrelor 90 mg tablet 90 mg PO BID #180 tab 07/16/18 - Allergies Allergies/Adverse Reactions: Allergies etodolac Allergy (Severe, Verified 07/15/18 18:54) Hives - Sleep Disorder Evaluation Hx of Sleep Apnea: No Do you snore loudly (louder than talking or can be heard through closed doors)?: No Do you often feel tired/ fatigued/ sleepy during daytime?: No Has anyone observed you stop breathing during sleep?: No History of Hypertension (for STOP score): No - PT STATES HE HAD A PREVIOUS SLEEP STUDY, LESS THAN 10 YRS AGO STOP Results: Negative Advanced Directives - Advanced Directives Power of Clinical Documentation Improvement Specialist: No Living Will: No Advance Directives Information Provided: Yes Advance Directives on File: No DNR Order?:: No Past Medical History - Past Medical Illness Medical History: Past Medical History (Last Reviewed 08/06/18 @ 08:35 by Gabi Moura) Dyspnea on exertion (Acute) R06.09 History of inferior wall myocardial infarction (Chronic) Onset Date: 07/04/18 I25.2 Nicotine dependence (Chronic) F17.200 Hyperlipidemia (Chronic) E78.5 Essential (primary) hypertension (Chronic) I10 Atherosclerosis of coronary artery of [place] heart without angina pectoris (Chronic) I25.10 VDI-CTG-Pvvc-Mid RCA w/ 3.0 x 28 mm and 3.0 x 15 mm Elunir Stent and DENNIS-Distal RCA w/ 2.5 x 28 mm Elunir 07/04/18 Acute inferior myocardial infarction (Resolved) Onset Date: 07/04/18 I21.19 STEMI (ST elevation myocardial infarction) (Resolved) I21.3 - Past Surgical History Surgical History: Past Surgical History (Last Reviewed 08/06/18 @ 08:35 by Gabi Moura) Stented coronary artery (Chronic) Onset Date: 07/24/18 Z95.5 DENNIS to mid LAD (2.25 X 20 Promus Synergy); DENNIS to mid LCX after FFR of 0.81 (3.0 X 28 Promus Synergy) H/O right coronary artery stent placement (Chronic) Onset Date: 07/04/18 Z95.5 TYU-RFE-Hohh-Mid RCA w/ 3.0 x 28 mm and 3.0 x 15 mm Elunir Stent and DENNIS-Distal RCA w/ 2.5 x 28 mm Elunir 07/04/18 H/O hemorrhoidectomy Z98.890 History of back surgery Z98.890 Surgical History: - - Internal hemorrhoid surgery; and back surgery - Family History Summary Family History: Family History (Last Reviewed 08/06/18 @ 08:35 by Gabi Moura) Father Heart disease Mother Cancer Social History - Smoking History Smoking Status: Former smoker Years Smokin Packs Smoked per Day: 2.5 Hx Smoking Cessation Date: 08/04/2018 Hx Tobacco Use: Yes - Alcohol Use Alcohol Usage: Yes - CASUAL - Substance Abuse Hx Substance Use: No - Occupation Occupation (List type of work in comments):: Employed Hours worked per day:: 9 - Hobbies, Recreation, Social Activities Hobbies: Other - 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 - Children How many children do you have?: 3 Do any of your children live nearby?: Yes - Safety Do you feel safe in your surroundings?: Yes Review of Systems - Review of Systems Hints: Right click = Denies ([place]). Left click = Reports ([place]) Review of Present Symptoms: Reports: Shortness of Breath at Rest - PT BELIEVES IT IS DUE TO HIS BRILINTA. SUGGESTED F/U WITH DR ATKINS, Shortness of Breath with Exertion, Fatigue, Appetite - Normal, Sleep - Normal. Denies: PVD, Operative Discomfort, Angina, Wound Healing, Dizziness/Lightheadedness, Heart Arrhythmia/Irregularities, Appetite - Special Diet - Pain Is Patient Pain Free?: Yes Pain Location: chest Pain Level: 0/10 Risk Factor Assessment - Chief Complaint Chief Complaint: CURRENT PCI PT WHO PRESENTS TODAY FOR CR INITIAL EVALUATION - Vital Signs Temperature: 98.6 F Respiratory Rate: 16 Pulse Ox: 96 Blood Pressure: 138/80 Nailbeds:: PINK - Pulse Pulse Rate: 56 Pulse Rhythm: Regular - Hypertension Blood Pressure Sitting - Left Arm: 130/80 - Diabetes Nutrition Referral for Diabetes: No - Obesity Height: 5 ft 11 in Weight:: 224 lb Weight in Pounds: 224.0 lbs Weight Source: Stated by Patient Body Mass Index (BMI): 31.2 Nutritional Referral for Obesity: Yes - BMI 31.2 - Physical Inactivity Physical Inactivity: None - Risk Stratification Risk Guidelines: Lowest Risk: Risk Factor for Dyslipidemia, Risk Factor for Diabetes, Risk Factor for Hypertension, Moderate Risk: Risk Factor for Smoking, Risk Factor for Sedentary Lifestyle, Highest Risk: Risk Factor for Obesity, Risk Factor for Depression - PT STATES HAS BEEN DEPRESSED/TEARFUL - For Smoking Smoking Risk Guidelines: Smoking Low Risk: None or quit greater than 6 months ago. Smoking Moderate Risk: Smoker or quit 6 months or less ago. Smoking High Risk: Smoker - For Dyslipidemia Dyslipidemia Risk Guidelines: Low Risk: Moderate Risk: High Risk: 15-25% fat 25.1-29% fat >/= 30% fat. <7% sat fat 7-9% sat fat >9% sat fat. <150 mg chol 150-299 mg chol >/= 300 mg chol. LDL <100 LDL 100-129 LDL >/= 130. Chol/HDL ratio <5.0 Chol/HDL ratio 5.0-6.0 Chol/HDL ratio >6.0. Triglycerides <100 Triglycerides 100-149 Triglycerides >/= 150 - For Diabetes Mellitus Diabetes Risk Guidelines: Diabetes Low Risk: HgA1c <6.5% and/or FBG <120. Diabetes Moderate Risk: HgA1c 6.6-7.9% and/or FBG 120-180. Diabetes High Risk: HgA1c >/= 8% and/or FBG >180 - For Obesity/Overweight Obesity/Overweight Risk Guidelines: Obesity Low Risk: BMI <25.0. Obesity Moderate Risk: BMI 25-29.9. Obesity High Risk: BMI >/= 30.0 - For Hypertension Hypertension Risk Guidelines: Hypertension Low Risk: Systolic <120 and Diastolic <80. Hypertension Moderate Risk: Systolic 120-139 and Diastolic 80-89. Hypertension High Risk: Systolic >/= 140 and Diastolic >/= 90 - For Sedentary Lifestyle Sedentary Lifestyle Risk Guidelines: Sedentary Lifestyle Low Risk: >/= 1,500 kcal/week. Sedentary Lifestyle Moderate Risk: 700-1,499 kcal/week. Sedentary Lifestyle High Risk: < 700 kcal/week - For Depression Depression Risk Guidelines: Depression Low Risk: Not clinically depressed. Depression Moderate Risk: Mildly depressed. Depression High Risk: Clinically depressed - Family History Family History: Family History (Last Reviewed 08/06/18 @ 08:35 by Gabi Moura) Father Heart disease Mother Cancer Motivation - Motivation to Participate On a scale of 1 to 10, how prepared are you to commit to attending program?: 10 What do you see as barriers to successfully being able to complete the program?: POSSIBLY WORK What do you see as the benefits of succesfully completing the program? In other words, what do you hope to get out of participating in the program?: A LOT OF BENEFITS, ESTABLISH EXERCISE ROUTINE, NUTRITION,ENERGY Are there issues you are dealing with that will interfere with completing the program?: NONE Do you have a spouse or signficant other, family or friends who will help support you to complete the program?: FAMILY AND FRIENDS
--- NOTE | 2018-08-06 10:22 | CR.HP_ITS ---
CR - History & Physical - General Arrival date:: 08/06/18 Arrival time:: 09:30 Date of Referral:: 07/24/18 Date of CR Evaluation:: 08/06/18 Referring Physician: DR. ATKINS Primary Diagnosis: PCI WITH STENT - History of Present Cardiac Event Onset Date: Enter Onset Date of cardiac illnesses in Comment field below Current stable Angina Pectoris:: No Acute Myocardial Infarction within 12 months:: Yes Coronary Artery Bypass Graft:: No Heart valve replacement or repair:: No PTCA or coronary stenting:: Yes Heart or Heart-Lung Transplant:: No Heart Failure EF <35%:: No - 50-55% Type of Symptoms:: SEVERE INDIGESTION, ARM PAIN, N&V, DIAPHORESIS Interventions with present event:: PCI WITH STENT 5 Were there any complications?: NONE - Medications Home Medications: Ambulatory Orders Medication Instructions Recorded Hydrocodone/Acetaminophen 1 tab PO Q4H PRN PRN 07/04/18 [Hydrocodone-Acetamin 5-325 mg] Multivitamin [Multiple Vitamins] 1 tab PO DAILY 07/04/18 Lorazepam [Ativan] 1 mg PO DAILY PRN PRN #5 tab 07/06/18 aspirin 81 mg tablet,delayed 81 mg PO DAILY@0800 #90 tab 07/16/18 release atorvastatin 40 mg tablet 40 mg PO QHS #90 tab 07/16/18 carvedilol 3.125 mg tablet 3.125 mg PO BID #180 tab 07/16/18 hydroxyzine pamoate 25 mg capsule 25 mg PO TID-QID PRN 07/16/18 ticagrelor 90 mg tablet 90 mg PO BID #180 tab 07/16/18 - Allergies Allergies/Adverse Reactions: Allergies etodolac Allergy (Severe, Verified 07/15/18 18:54) Hives - Sleep Disorder Evaluation Hx of Sleep Apnea: No Do you snore loudly (louder than talking or can be heard through closed doors)?: No Do you often feel tired/ fatigued/ sleepy during daytime?: No Has anyone observed you stop breathing during sleep?: No History of Hypertension (for STOP score): No - PT STATES HE HAD A PREVIOUS SLEEP STUDY, LESS THAN 10 YRS AGO STOP Results: Negative Advanced Directives - Advanced Directives Power of Banking Officer: No Living Will: No Advance Directives Information Provided: Yes Advance Directives on File: No DNR Order?:: No Past Medical History - Past Medical Illness Medical History: Past Medical History (Last Reviewed 08/06/18 @ 08:35 by Gabi Moura) Dyspnea on exertion (Acute) R06.09 History of inferior wall myocardial infarction (Chronic) Onset Date: 07/04/18 I25.2 Nicotine dependence (Chronic) F17.200 Hyperlipidemia (Chronic) E78.5 Essential (primary) hypertension (Chronic) I10 Atherosclerosis of coronary artery of [place] heart without angina pectoris (Chronic) I25.10 [id number]-Mid RCA w/ 3.0 x 28 mm and 3.0 x 15 mm Elunir Stent and DENNIS- Distal RCA w/ 2.5 x 28 mm Elunir 07/04/18 Acute inferior myocardial infarction (Resolved) Onset Date: 07/04/18 I21.19 STEMI (ST elevation myocardial infarction) (Resolved) I21.3 - Past Surgical History Surgical History: Past Surgical History (Last Reviewed 08/06/18 @ 08:35 by Gabi Moura) Stented coronary artery (Chronic) Onset Date: 07/24/18 Z95.5 DENNIS to mid LAD (2.25 X 20 Promus Synergy); DENNIS to mid LCX after FFR of 0.81 (3.0 X 28 Promus Synergy) H/O right coronary artery stent placement (Chronic) Onset Date: 07/04/18 Z95.5 [id number]-Mid RCA w/ 3.0 x 28 mm and 3.0 x 15 mm Elunir Stent and DENNIS- Distal RCA w/ 2.5 x 28 mm Elunir 07/04/18 H/O hemorrhoidectomy Z98.890 History of back surgery Z98.890 Surgical History: - - Internal hemorrhoid surgery; and back surgery - Family History Summary Family History: Family History (Last Reviewed 08/06/18 @ 08:35 by Gabi Moura) Father Heart disease Mother Cancer Social History - Smoking History Smoking Status: Former smoker Years Smokin Packs Smoked per Day: 2.5 Hx Smoking Cessation Date: 08/04/2018 Hx Tobacco Use: Yes - Alcohol Use Alcohol Usage: Yes - CASUAL - Substance Abuse Hx Substance Use: No - Occupation Occupation (List type of work in comments):: Employed Hours worked per day:: 9 - Hobbies, Recreation, Social Activities Hobbies: Other - 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 - Children How many children do you have?: 3 Do any of your children live nearby?: Yes - Safety Do you feel safe in your surroundings?: Yes Review of Systems - Review of Systems Hints: Right click = Denies (Slash). Left click = Reports ([place]) Review of Present Symptoms: Reports: Shortness of Breath at Rest - PT BELIEVES IT IS DUE TO HIS BRIL[place]TA. SUGGESTED F/U WITH DR ATKINS, Shortness of Breath with Exertion, Fatigue, Appetite - Normal, Sleep - Normal. Denies: PVD, Operative Discomfort, Angina, Wound Healing, Dizziness/Lightheadedness, Heart Arrhythmia/Irregularities, Appetite - Special Diet - Pain Is Patient Pain Free?: Yes Pain Location: chest Pain Level: 0/10 Risk Factor Assessment - Chief Complaint Chief Complaint: CURRENT PCI PT WHO PRESENTS TODAY FOR CR INITIAL EVALUATION - Vital Signs Temperature: 98.6 F Respiratory Rate: 16 Pulse Ox: 96 Blood Pressure: 138/80 Nailbeds:: PINK - Pulse Pulse Rate: 56 Pulse Rhythm: Regular - Hypertension Blood Pressure Sitting - Left Arm: 130/80 - Diabetes Nutrition Referral for Diabetes: No - Obesity Height: 5 ft 11 in Weight:: 224 lb Weight in Pounds: 224.0 lbs Weight Source: Stated by Patient Body Mass Index (BMI): 31.2 Nutritional Referral for Obesity: Yes - BMI 31.2 - Physical Inactivity Physical Inactivity: None - Risk Stratification Risk Guidelines: Lowest Risk: Risk Factor for Dyslipidemia, Risk Factor for Diabetes, Risk Factor for Hypertension, Moderate Risk: Risk Factor for Smoking, Risk Factor for Sedentary Lifestyle, Highest Risk: Risk Factor for Obesity, Risk Factor for Depression - PT STATES HAS BEEN DEPRESSED/TEARFUL - For Smoking Smoking Risk Guidelines: Smoking Low Risk: None or quit greater than 6 months ago. Smoking Moderate Risk: Smoker or quit 6 months or less ago. Smoking High Risk: Smoker - For Dyslipidemia Dyslipidemia Risk Guidelines: Low Risk: Moderate Risk: High Risk: 15-25% fat 25.1-29% fat >/= 30% fat. <7% sat fat 7-9% sat fat >9% sat fat. <150 mg chol 150-299 mg chol >/= 300 mg chol. LDL <100 LDL 100-129 LDL >/= 130. Chol/HDL ratio <5.0 Chol/HDL ratio 5.0-6.0 Chol/HDL ratio >6.0. Triglycerides <100 Triglycerides 100- 149 Triglycerides >/= 150 - For Diabetes Mellitus Diabetes Risk Guidelines: Diabetes Low Risk: HgA1c <6.5% and/or FBG <120. Diabetes Moderate Risk: HgA1c 6.6-7.9% and/or FBG 120-180. Diabetes High Risk: HgA1c >/= 8% and/or FBG >180 - For Obesity/Overweight Obesity/Overweight Risk Guidelines: Obesity Low Risk: BMI <25.0. Obesity Moderate Risk: BMI 25-29.9. Obesity High Risk: BMI >/= 30.0 - For Hypertension Hypertension Risk Guidelines: Hypertension Low Risk: Systolic <120 and Diastolic <80. Hypertension Moderate Risk: Systolic 120-139 and Diastolic 80-89. Hypertension High Risk: Systolic >/= 140 and Diastolic >/= 90 - For Sedentary Lifestyle Sedentary Lifestyle Risk Guidelines: Sedentary Lifestyle Low Risk: >/= 1,500 kcal/week. Sedentary Lifestyle Moderate Risk: 700-1,499 kcal/week. Sedentary Lifestyle High Risk: < 700 kcal/week - For Depression Depression Risk Guidelines: Depression Low Risk: Not clinically depressed. Depression Moderate Risk: Mildly depressed. Depression High Risk: Clinically depressed - Family History Family History: Family History (Last Reviewed 08/06/18 @ 08:35 by Gabi Moura) Father Heart disease Mother Cancer Motivation - Motivation to Participate On a scale of 1 to 10, how prepared are you to commit to attending program?: 10 What do you see as barriers to successfully being able to complete the program?: POSSIBLY WORK What do you see as the benefits of succesfully completing the program? In other words, what do you hope to get out of participating in the program?: A LOT OF BENEFITS, ESTABLISH EXERCISE ROUTINE, NUTRITION,ENERGY Are there issues you are dealing with that will interfere with completing the program?: NONE Do you have a spouse or signficant other, family or friends who will help support you to complete the program?: FAMILY AND FRIENDS
[2018-08-06 10:55] VITALS: BP 130/80; BP 138/80; PULSE 56; RESP 16; TEMP 37; O2SAT 96; BMI 31.2
--- NOTE | 2018-08-06 11:03 | CR.ITP_ITS ---
General Information - General Information Admitting Diagnosis: PCI WITH WITH STENT X5 Special Needs: NONE Oxygen: NONE - Education/Goals Barriers to Learning: None Individual Counseling: Initial Assessment: Nicotine/Smoking, Overweight/Obesity, Sedentary Lifestyle, Stress, Family History of Heart Disease (under 65 years) Cardiac Rehabilitation Goals: 1. Maintain the individual as the primary focus of care. 2. To improve the patient's quality of life. 3. Identification of cardiac risk factors and provide cardiac risk factor management. 4. Enhance the psychosocial status of the patient. 5. Reconditioning enough to allow the patient to resume customary activities. 6. Control symptoms of cardiac disease Scale for measuring improvement of personal goals: Enter appropriate number in Comments. 2 = Unchanged. 3 = Slightly Better. 4 = Moderate Improvement. 5 = Met my Goal Personal Goals: Initial Assessment: Quit smoking (participate in smoking cessation, Improve management of stress and emotions, Improve energy level, Participate in home exercise program, Get back to work, or to resume activities faster, Improve knowledge of cardiac disease, Improve muscle strength and endurance, Improve diet and eating habits (eat healthier), Control risk factors (learn risk factor modification), Other goal: - MY OVERALL WELL BEING Exercise - Initial Assessment - Visit Date of Eval: 08/06/18 - Stages of Change Stages of Change:: Action - Stress Test SpO2 (%):: 96 Blood Pressure: 138/80 - Exercise Prescription Mode:: Treadmill, Biodyne, Rower, Airdyne, NuStep, Arm Ergometer Angina with exercise?: No Target Heart Rate:: 111-119 BPM - Hypertension Do any of the following apply?: No - Intervention Home Exercise/Activity Goal:: Sitting Time <3 hrs/day - Education Goals:: Warm-up, RPE ANNA Scale, S/S, Safe Exercise, Self-Monitoring Nutrition - Initial Assessment - Program Goals Nutrition Program Goals: LDL <70. Total Cholesterol <200. HDL >45. Triglycerides <150. HgbA1C <7%. BMI <25 - Stages of Change Stages of Change:: Action - Diabetes Diabetes:: No - Weight Management Height: 5 ft 11 in Weight:: 224 lb Body Fat %:: 31.2 - Intervention Referral to dietitian:: Yes Referral to Diabetic Clinic:: No Will attend diet classes:: Yes - WOULD LIKE TO ASK THEM SOME QUESTIONS POSSIBLY - Education Gave educational materials for:: Signs & symptoms of hypoglycemia, Signs & symptoms of hyperglycemia, Relate diabetes to coronary artery disease, Healthy eating Tobacco - Initial Assessment - Program Goals Tobacco Program Goals: Complete smoking cessation. Attend education classes. Improve Knowledge Test score - Stage of Change Stages of Change:: Action - Learning Barriers Learning Barriers: Ready to Learn - Family Support Do you have family support?: Yes - Tobacco Use Tobacco Use: Cigarettes How long ago did you quit using tobacco products?: Less than 6 months ago Years Smokin Do you use smokeless tobacco?: Yes - Intervention Smoking Cessation Referral:: No Education Schedule Given:: Yes - Education Gave educational material for:: Tobacco triggers, Coronary artery disease, Risk factors, Sexuality, Medical compliance, Cardiac A&P, Angina signs & symptoms Psychosocial - Initial Assess - Target Goals Target Goals: Assess presence or absence of depression. Using a valid screening tool, maximizes coping skills. Positive support system - Stages of Change Stages of Change:: Action - Psychosocial Test Tool Used:: HANDS Depression Questionnaire - Intervention PS - Interventions: Yes Attend Stress Management Classes, Yes Uses Stress Management Skills, No Referral to [facility] Case Management, No Referral to Physician - Education Gave educational materials for:: Coping techniques, Signs & symptoms of depression, Stress management, Relaxation techniques - Patient/Program Goal Preventative Medication(s):: Aspirin, Beta roberto, Statin/lipid - Assistive Devices Assistive Devices:: None Fall Risk Assessed:: No Patient Health Questionnaire Initial Assessment 1. Little interest or pleasure in doing things: More than half the days 2. Feeling down, depressed, or hopeless: More than half the days 3. Trouble falling or staying asleep, or sleeping too much: More than half the days 4. Feeling tired or having little energy: Several days 5. Poor appetite or overeating: Not at all 6. Feeling bad about yourself -- or that you are a failure or have let yourself or your family down: Several days 7. Trouble concentrating on things, such as reading the newspaper or watching television: Several days 8. Moving or speaking so slowly that other people could have noticed. Or the opposite - being so fidgety or restless that you have been moving around a lot more than usual: Several days 9. Thoughts that you would be better off , or of hurting yourself in some way: Not at all - 10 POINTS How difficult have these problems made it for you to do your work, take care of things at home, or get along with other people?: Not difficult at all Total Score: 10 JOSUÉ-Q SV Test - Statements CAD is a disease of the arteries in the heart: False Examples of risk factors for heart disease: True Angina is chest pain or discomfort: True The benefits of resistance training include: True Eating more meat and dairy products: I Don't Know Anti-platelet medications such as aspirin are important: True The only effective way to manage stress: False An exercise warm-up slowly increases heart rate: True Prepared, processed foods usually have high sodium: True Depression is common after a heart attack: True The statin medications lower cholesterol: True To control blood pressure, lower the amount of sodium: True If someone gets chest discomfort during walking: False Transfats are partially hydrogenated vegetable oils: True Sleep apnea that is not treated increases the risk: False To control cholesterol, one should become a vegetarian: False Someone knows if he/she is exercising at the right level: True Diabetes cannot be prevented with exercise & health eating: False Stress is a large risk for heart attack: True A diet that can help lower blood pressure is rich in: True - Total Score Total Correct Responses: 19 Self-Efficacy Initial Assessment We would like to know how confident you are in doing certain activities. Please select your confidence level for:: Select your confidence level for the follow ing using the scale 1-10 where 1 is not at all confident and 10 is totally confident. Your score is the average of all 6 responses. Fatigue: How confident are you that you can keep the fatigue caused by your disease from interfering with the things you want to do? Select Number: 5 Physical Discomfort or Pain: How confident are you that you can keep the physical discomfort or pain of your disease from interfering with the things you want to do? Select Number: 8 Emotional Distress: How confident are you that you can keep the emotional distress caused by your disease from interfering with the things you want to do? Select Number: 6 Other Symptoms or Health Problems: How confident are you that you can keep other symptoms or health problems from interfering with the things you want to do? Select Number: 8 Different Tasks and Activities: How confident are you that you can do the different tasks and activities needed to manage your health condition so as to reduce your need to see a doctor? Select Number: 7 Medication: How confident are you that you can do things other than just taking medication to reduce how much your illness affects your everyday life? Select Number: 7 Total Score:: 6 Nutrition Survey - Nutrition Survey Instructions Scoring Instructions: Scoring is as follows: Yes = 1 points. No = 0 point. Patient score that is >/=12 is considered to be at potential nutritional risk an d could benefit from a referral to a registered dietitian. - Nutrition Survey Initial Have you lost >10 lbs over the past 2 months without trying?: No Are you following a special diet at home for diabetes, low fat, or low salt?: No Are you interested in meeting with a dietitian for help understanding your diet?: Yes Do you eat less than 3 meals a day?: Yes Do you eat fatty meats (bucio, sausage, ribs, etc), fried foods, desserts, large amounts of salad dressings, margarine, butter, or cheese most days?: Yes Do you have food allergies? [Enter types in comment field]: No Do you eat in restaurants more than 3 times a week?: No Do you season food with salt, seasoning salt, or garlic salt?: Yes Do you used canned, boxed, frozen meals, or soups, seasoning packets?: Yes Total Score:: 5
[2018-08-06 11:58] VITALS: BP 138/80
--- OUTSIDE RECORDS SUMMARY | 2018-11-07 16:04 | XMS RPT_ITS ---
:1955 Author Organization OHIP Support Name Relationship Address Phone JIA ZIMMERMAN Unavailable [address] + [place] [address] WOOGL Unavailable [address] + [place] [address] JIA ZIMMERMAN Unavailable [address] + [place] [address] WOOGL Unavailable [address] + [place] [address] JIA ZIMMERMAN Unavailable [address] + [place] [address] WOOGL Unavailable [address] + [place] [address] JIA ZIMMERMAN Unavailable [address] + [place] [address] WOOGL Unavailable [address] + [place] [address] JIA ZIMMERMAN Unavailable [address] + [place] [address] WOOGL Unavailable [address] + [place] [address] JIA ZIMMERMAN Unavailable [address] + [place] [address] WOOGL Unavailable [address] + [place] [address] JIA ZIMMERMAN Unavailable [address] + [place] [address] WOOGL Unavailable [address] + [place] [address] JIA ZIMMERMAN Unavailable [address] + [place] [address] WOOGL Unavailable [address] + [place] [address] JIA ZIMMERMAN Unavailable [address] + [place] [address] WOOGL Unavailable [address] + [place] [address] ELSIE, JIA Unavailable [address] + [place] [address] WOOGL Unavailable [address] + [place] [address] Elsie Jia Unavailable . + ., . . WOOGL Unavailable [address] + [place] [address] WOOGL Unavailable [address] + [place] [address] TAYLOR RENE Unavailable [address] + [place] [address] WOOGL Unavailable [address] + [place] [address] TAYLOR RENE Unavailable [address] + [place] [address] Elsie, Jia Unavailable Unavailable + WOOGL Unavailable [address] + [place] [address] Elsie Jia Unavailable . + ., . . WOOGL Unavailable [address] + [place] [address] TAYLOR RENE Unavailable [address] + [place] [address] WOOGL Unavailable [address] + [place] [address] TAYLOR RENE Unavailable [address] + [place] [address] WOOGL Unavailable [address] + [place] [address] Elsie Jia Unavailable . + ., . . WOOGL Unavailable [address] + [place] [address] WOOGL Unavailable [address] + [place] [address] Elsie Jia Unavailable . + ., . . WOOGL Unavailable [address] + [place] [address] WOOGL Unavailable [address] + [place] [address] TAYLOR RENE Unavailable [address] + [place] [address] Jia Zimmerman Unavailable Unavailable + WOOGL Unavailable [address] + [place] [address] Care Team Providers Name Role Phone TALAMPAS, ABEL D Attending Unavailable TALAMPAS, ABEL D Attending Unavailable TALAMPAS, ABEL D Referring Unavailable TALAMPAS, ABEL D Referring Unavailable TALAMPAS, ABEL D Attending Unavailable TALAMPAS, ABEL D Referring Unavailable RUTTIALANA (RECORD SYSTEMS ANALYST) Attending Unavailable ALANA ARMAS (RECORD SYSTEMS ANALYST) Referring Unavailable RUTTIALANA (RECORD SYSTEMS ANALYST) Attending Unavailable NAEL SHEPHERD Attending Unavailable TALAMPAS, ABEL D Attending Unavailable TALAMPAS, ABEL D Referring Unavailable Sacha Atkins Attending Unavailable Sacha Atkins Referring Unavailable Talampas, Abel Primary Care Unavailable Sacha Atkins Attending Unavailable Sacha Atkins Referring Unavailable Talampas, Abel Primary Care Unavailable Sacha Atkins Attending Unavailable Talampas, Abel Referring Unavailable Sacha Atkins Attending Unavailable Sacha Atkins Referring Unavailable Sacha Atkins Attending Unavailable Sacha Atkins Referring Unavailable Talampas, Abel Primary Care Unavailable Sacha Atkins Attending Unavailable Sacha Atkins Referring Unavailable Talampas, Abel Primary Care Unavailable Sacha Atkins Referring Unavailable Talampas, Abel Primary Care Unavailable Mack Pittman Admitting Unavailable Lina, Ajasem Attending Unavailable Mack Pittman Admitting Unavailable Mack Pittman Attending Unavailable Sacha Atkins Referring Unavailable Talampas, Abel Primary Care Unavailable Mack Pittman Consulting Unavailable Mack Pittman Admitting Unavailable Bertha Bedoya Attending Unavailable Sacha Atkins Referring Unavailable Talampas, Abel Primary Care Unavailable AgMack yepez Consulting Unavailable Caryn Daly Attending Unavailable Mack Pittman Admitting Unavailable Renetta Bedoyad Attending Unavailable Sacha Atkins Referring Unavailable Talampas, Abel Primary Care Unavailable Ashelfah, Ghasem Consulting Unavailable AgyeveronicagMack Admitting Unavailable Ashelfah, Ghasem Attending Unavailable Sacha Atkins Referring Unavailable Talampas, Abel Primary Care Unavailable Ashelfah, Ghasem Consulting Unavailable Sacha Atkins Attending Unavailable Sacha Atkins Referring Unavailable Talampas, Abel Primary Care Unavailable Sacha Atkins Attending Unavailable Sacha Atkins Referring Unavailable AgyeponMack matute Admitting Unavailable Ashelfah, Ghasem Attending Unavailable Sanket, Sacha Referring Unavailable Talampas, Abel Primary Care Unavailable Ashelfah, Ghasem Consulting Unavailable Agyepong, Mack Admitting Unavailable Bertha Bedoya Attending Unavailable Sacha Atkins Referring Unavailable Talampas, Abel Primary Care Unavailable Ashelfah, Ghasem Consulting Unavailable Sacha Atkins Attending Unavailable Talampas, Abel Referring Unavailable Sacha Atkins Attending Unavailable Sanket, Sacha Referring Unavailable Talampas, Abel Primary Care Unavailable Sacha Atkins Attending Unavailable Sacha Atkins Referring Unavailable Talampas, Abel Primary Care Unavailable Sacha Atkins Consulting Unavailable PROBLEMS PROBLEMS DATE TYPE CONDITION / CODE ATTENDING STATUS SOURCE 09/11/2018 Unknown Z95.5 - Presence of Sacha Atkins Active [facility] coronary angioplasty Community implant and graft / Hospital Z95.5(ICD-10) Repository 09/10/2018 Active Personal history of NA Active [facility] other infectious and Clinic Main parasitic diseases / [place] Z86.19(ICD-10) Repository 09/10/2018 Active Other gastritis NA Active [facility] without bleeding / Clinic Main K29.60(ICD-10) [place] Repository 08/27/2018 Unknown I25.2 - Old Sacha Atkins Active [facility] myocardial infarction Community / I25.2(ICD-10) Hospital Repository 08/27/2018 Unknown R06.09 - Other forms Sacha Atkins Active [facility] of dyspnea / Community R06.09(ICD-10) Hospital Repository 08/27/2018 Unknown I25.10 - Sacha Atkins Active [facility] Atherosclerotic heart Community disease of [place] [facility] coronary artery Repository without angina pectoris / I25.10(ICD-10) 09/11/2018 Unknown R07.9 - Chest pain, Sacha Atkins Active [facility] unspecified / Community R07.9(ICD-10) Hospital Repository 08/08/2018 Unknown E78.5 - Sacha Atkins Active [facility] Hyperlipidemia, Community unspecified / Hospital E78.5(ICD-10) Repository 07/02/2018 Active Pain in right foot / NA Active [facility] M79.671(ICD-10) Clinic Main [place] Repository 07/12/2015 Active Mixed hyperlipidemia NA Active [facility] / E78.2(ICD-10) Clinic Main [place] Repository 03/16/2018 Active 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 pylori Performed By: #### HPYLBR #### [facility] [address] [place] [address] CNNURSE Observed: 09/10/2018 Status: COMPLETED Source: [place] 3:30 PM [facility] REPOSITORY Nurse Visit (FAMPWS) MOSHE ZIMMERMAN ([id number]) 1955 M Date Time Provider Department 09/10/18 3:30 PM [facility] During your visit today, we recorded the following information about you: Eileen Sheriff LPN 09/10/2018 3:56 PM Signed Patient presented for H. Pylori Breath testing per Dr Pablo. Obtained baseline sample at 3:20pm. Patient then drank Pranactin-Citric solution. Waited full 15 minutes and obtained second sample at 2:43pm. Patient tolerated testing well with no problems. LOT # [id number] EXP 08/19/2020 Eileen Sheriff LPN Referring Provider: SELF [200] Allergies As of Date: 09/10/2018 Noted Allergy Reaction LIPITOR (ATORVASTATIN CALCIUM) 06/07/2005 Comments: muscle cramps LODINE (ETODOLAC) 02/18/2008 Comments: depression WELLBUTRIN (BUPROPION HCL) 06/07/2005 Date Reviewed: 08/30/2018 Reviewed by: Melodie Cintron [employer] Pathology Teacher - Fully Assessed Reason for Visit: H. Pylori Breath Test [477] Primary Visit Diagnosis:History of Helicobacter pylori infection [Z86.19] Other Visit Diagnosis:Other gastritis without hemorrhage, unspecified chronicity [K29.60] Prescriptions as of 09/10/2018 Sig: LORAZEPAM 0.5 MG TABLET Take one to two pills daily a* HYDROCODONE 5 MG-ACETAMINOPHE* Take 2 tablets by mouth twice* HYDROCODONE 5 MG-ACETAMINOPHE* Take 2 tablets by mouth twice* HYDROCODONE 5 MG-ACETAMINOPHE* Take 2 tablets by mouth twice* METOPROLOL SUCCINATE ER 25 MG* Take 25 mg by mouth once tristin* LORATADINE 10 MG TABLET Take 1 tablet by mouth once d* ASPIRIN 81 MG TABLET,DELAYED * Take 81 mg by mouth once tristin* ATORVASTATIN 40 MG TABLET AT BEDTIME MULTIVITAMIN ORAL DAILY HYDROXYZINE PAMOATE 25 MG CAP* Take 1 capsule by mouth three* [id number]-[id number]-[id number] C-M* Take 1 capsule by mouth three* CHOLECALCIFEROL (VITAMIN D3) * Take 1 capsule by mouth once * THERAPEUTIC MULTIVITAMIN TABL* Take one(1) tablet daily. Problem List As Of Date 09/10/2018 Noted Resolved RAYNAUD'S SYNDROME [I73.00] Displacement of lumbar intervertebral disc with* More... SCIATICA [M54.30] URINARY CALCULUS NOS [N20.9] More... 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] INVALID FOR* TOBACCO USE DISORDER [F17.200] INVALID FOR* Tendonitis [M77.9] INVALID FOR* Hemorrhoids [K64.9] INVALID FOR* Blood in stool [K92.1] INVALID FOR* Duodenal ulcer due to Helicobacter pylori [K26.*INVALID FOR* Lumbar stenosis with neurogenic claudication [M*INVALID FOR* Meralgia paresthetica of left side [G57.12] INVALID FOR* ED (erectile dysfunction) [N52.9] INVALID FOR* Chronic low back pain [M54.5, G89.29] INVALID FOR* DDD (degenerative disc disease), lumbar [M51.36]INVALID FOR* Internal hemorrhoids without mention of complic*INVALID FOR* Pain in both hands [M79.641, M79.642] INVALID FOR* Class 1 obesity due to excess calories without *INVALID FOR* Encounter Status:Closed by EILEEN SHERIFF LPN on 09/10/18 PROGRESS Observed: 09/10/2018 Status: COMPLETED Source: [place] 3:22 PM [facility] REPOSITORY HNO ID: [id number] Author: Eileen Sheriff LPN Service: (none) Author Type: (none) Type: Progress Notes Filed: 09/10/2018 3:56 PM Note Text: Patient presented for H. Pylori Breath testing per Dr Pablo. Obtained baseline sample at 3:20pm. Patient then drank Pranactin-Citric solution. Waited full 15 minutes and obtained second sample at 2:43pm. Patient tolerated testing well with no problems. LOT # [id number] EXP 08/19/2020 Eileen Sheriff LPN PULMONARY FUNCTION Observed: 09/05/2018 Status: F Source: [place] TEST 1:[address] [facility] REPOSITORY [facility] Pulmonary Services/Neurology [address] [place] [address] MR#: [id number] Acct: [id number] Name: MOSHE ZIMMERMAN Rep #: [id number] : 1955 63 From: Arnoldo Verde DO Referring Dr: Sacha Atkins MD Status: REG CLI Ordering Dr: Date: Location: [facility] Sex: M C INTRODUCTION: The patient is a 63-year-old male that presents for pulmonary function studies secondary to a diagnosis of shortness of breath. Respiratory therapy reports good patient effort. Bronchodilators were used during testing. INTERPRETATION: Forced expiration spirometry demonstrates no evidence of a large airways obstructive ventilatory defect. There was no significant response to aerosolized bronchodilators. Spirograms are of good quality and plateau normally. Body plethysmography was performed and reveals an elevated TLC and RV, which would be indicative of hyperinflation and air-trapping in the setting of obstruction. Diffusing capacity by single breath CO is within normal limits at 85% of predicted. IMPRESSION: These pulmonary function studies only demonstrate evidence of hyperinflation and air-trapping of unclear significance, given the lack of obstructive lung disease noted on these tests. Diffusing capacity is within normal limits. 09/05/18 1339 <Electronically signed by Arnoldo Brown DO> Date Arnoldo Verde DO CC: Sacha Atkins MD; Abel Pablo MD Date Dictated: 09/05/181336 Date Transcribed: 09/05/181336 Energy Engineer: VICENTE Signed CNNURSE Observed: 09/03/2018 Status: COMPLETED Source: [place] 9:30 AM [facility] REPOSITORY Nurse Visit (FAMPWS) MOSHE ZIMMERMAN ([id number]) 1955 M Date Time Provider Department 09/03/18 9:30 AM OR NURSE [facility] During your visit today, we recorded the following information about you: Eileen Sheriff LPN 09/03/2018 9:25 AM Signed Patient presents for H. Pylori breath testing. Reviewed over prep instructions to verify if pt eligible to proceed with testing. States that he has actually been using Zantac OTC. Patient cannot have H2 antagonists for at leat 24-28hrs before testing. Appt today cancelled and rescheduled for later in week. Patient verbalized understanding of all instructions. Eileen Sheriff LPN Referring Provider: SELF [200] Allergies As of Date: 09/03/2018 Noted Allergy Reaction LIPITOR (ATORVASTATIN CALCIUM) 06/07/2005 Comments: muscle cramps LODINE (ETODOLAC) 02/18/2008 Comments: depression WELLBUTRIN (BUPROPION HCL) 06/07/2005 Date Reviewed: 08/30/2018 Reviewed by: Melodie Cintron [employer] Path[employer] Teacher - Fully Assessed Reason for Visit: Appointment Cancelled [1023] Primary Visit Diagnosis:APPOINTMENT CANCELLED Prescriptions as of 09/03/2018 Sig: LORAZEPAM 0.5 MG TABLET Take one to two pills daily a* HYDROCODONE 5 MG-ACETAMINOPHE* Take 2 tablets by mouth twice* HYDROCODONE 5 MG-ACETAMINOPHE* Take 2 tablets by mouth twice* HYDROCODONE 5 MG-ACETAMINOPHE* Take 2 tablets by mouth twice* METOPROLOL SUCCINATE ER 25 MG* Take 25 mg by mouth once tristin* LORATADINE 10 MG TABLET Take 1 tablet by mouth once d* ASPIRIN 81 MG TABLET,DELAYED * Take 81 mg by mouth once tristin* ATORVASTATIN 40 MG TABLET AT BEDTIME MULTIVITAMIN ORAL DAILY HYDROXYZINE PAMOATE 25 MG CAP* Take 1 capsule by mouth three* UNJSIABRAXT-VVZVOCTUV-WEW C-M* Take 1 capsule by mouth three* CHOLECALCIFEROL (VITAMIN D3) * Take 1 capsule by mouth once * THERAPEUTIC MULTIVITAMIN TABL* Take one(1) tablet daily. Problem List As Of Date 09/03/2018 Noted Resolved RAYNAUD'S SYNDROME [I73.00] Displacement of lumbar intervertebral disc with* More... SCIATICA [M54.30] URINARY CALCULUS NOS [N20.9] More... 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] INVALID FOR* TOBACCO USE DISORDER [F17.200] INVALID FOR* Tendonitis [M77.9] INVALID FOR* Hemorrhoids [K64.9] INVALID FOR* Blood in stool [K92.1] INVALID FOR* Duodenal ulcer due to Helicobacter pylori [K26.*INVALID FOR* Lumbar stenosis with neurogenic claudication [M*INVALID FOR* Meralgia paresthetica of left side [G57.12] INVALID FOR* ED (erectile dysfunction) [N52.9] INVALID FOR* Chronic low back pain [M54.5, G89.29] INVALID FOR* DDD (degenerative disc disease), lumbar [M51.36]INVALID FOR* Internal hemorrhoids without mention of complic*INVALID FOR* Pain in both hands [M79.641, M79.642] INVALID FOR* Class 1 obesity due to excess calories without *INVALID FOR* Encounter Status:Closed by EILEEN SHERIFF LPN on 09/03/18 PROGRESS Observed: 09/03/2018 Status: COMPLETED Source: [place] 9:22 AM [facility] REPOSITORY HNO ID: [id number] Author: Eileen Sheriff LPN Service: (none) Author Type: (none) Type: Progress Notes Filed: 09/03/2018 9:25 AM Note Text: Patient presents for H. Pylori breath testing. Reviewed over prep instructions to verify if pt eligible to proceed with testing. States that he has actually been using Zantac OTC. Patient cannot have H2 antagonists for at leat 24-28hrs before testing. Appt today cancelled and rescheduled for later in week. Patient verbalized understanding of all instructions. Eileen Sheriff ARNULFO STRESS TEST ECHO W/ Observed: 08/28/2018 Status: F Source: [facility] [facility] 2:[address] [facility] REPOSITORY [facility] Cardiovascular Services [address] [place] [address] Stress Test Echo W/Contrast MR#: [id number] Acct: [id number] Name: MOSHE ZIMMERMAN Rep #: [id number] : 1955 63 From: Sacha Atkins MD Primary Care: Bev PERALTAAbel Status: REG CLI Ordering Dr: Sacha Atkins MD Sex: M C Reason For Study: CAD/ASHD Stress Results Protocol: Stress Echocardiogram Maximum Predicted HR: 159 bpm Target HR: 135 bpm % Maximum Predicted HR: 86 % Heart Stage Duration Rate BP Comment (mm:ss) (bpm) BASELINE 63 164/80PO 96-97% ON RA MOSHE PROTOCOL- STAGE 1 3:00 11 160/80VENTRICULAR BIGEMINY, FINGERS COLD, UNABLE TO GET PO MOSHE PROTOCOL- STAGE 2 3:00 123 174/84DYSPNEA, CP3/10, LEGS WEAK MOSHE PROTOCOL- EXTREME SOB, CP 3/10, LEG WEAKNESS/ACHING, VENTRICULAR STAGE 3 0:45 137 / BIGEMINY RECOVERY 70 130/76PO 97% Stress Duration: 6:45 mm:ss Maximum Stress HR: 137 bpm Baseline Echocardiogram Findings The estimated ejection fraction is 50 %. Mildly dilated left ventricle. Stress Echo Wall motion Data Resting WM Intermediate WM Stress WM Resting Wall Motion Wall Motion Stress No regional wall motion No regional wall motion abnormalities noted. abnormalities noted. EKG Data The baseline ECG displays normal sinus rhythm. The patient exercised according to the regular Moshe protocol for a total duration of 6:45. The maximum heart rate attained was 137 beats per minute. This was 86% of maximum predicted heart rate. The patient exercised into stage 3 of the Moshe protocol. During stress, there were no ST or T wave changes noted to suggest ischemia. Interpretation Summary The estimated ejection fraction is 50 %. Normal, adequate, treadmill echocardiogram. Negative for ischemia by EKG or echocardiographic anterior. Patient did develop dyspnea and 3 out of 10 chest pain at peak exercise with associated ventricular bigeminy. Appropriate blood pressure response to exercise. Average exercise capacity for age. Final LVEF of 65%. Baseline EF around 50%. No complications. Decreased sensitivity due to poor echo windows requiring Definity agent. Recommend clinical correlation. Ordering Physician: Sacha Atkins Referring Physician: Sacha Atkins Performed By: Rose Grijalva, FELTON, RVT 08/28/18 1445 Date Sacha Atkins MD CC: Sacha Atkins MD; Abel Pablo MD Date Dictated: 08/27/18 1312 Date Transcribed: 08/28/18 1445 Energy Engineer: Signed PROGRESS Observed: 08/11/2018 Status: COMPLETED Source: [place] 12:38 PM [facility] [place] REPOSITORY O ID: [id number] Author: Anna Cha (Sommer Huang Service: (none) Author Type: Nurse Practitioner Type: Progress Notes Filed: 08/11/2018 12:42 PM Note Text: Subjective HPI Patient presents with: Eye Problem: Left since yesterday Eye became itching, pt admits to rubbing at eye vigorously Denies any otc treatment for symptoms. Review of Systems Constitutional: Negative for chills, fever and malaise/fatigue. HENT: Negative for congestion, ear pain and sore throat. Eyes: Positive for discharge (watery) and redness (eye lid swollen). Negative for blurred vision, double vision, photophobia and pain. Respiratory: Negative for cough. Neurological: Negative for headaches. PAST MEDICAL HISTORY Diagnosis Date - Displacement of lumbar intervertebral disc without myelopathy - Encounter for Zostavax administration 05/20/2015 done at [facility] - Raynaud's syndrome - Sciatica - Tobacco abuse - Urinary calculus, unspecified Renal stones--calcium oxalate PAST SURGICAL HISTORY Procedure Laterality Date - COLONOSCOPY W/BX 05/27/10 colonic irritation - EGD W/O BRSH SPECIMEN W/BX 05/27/10 duodenal ulcer - PAST SURGICAL HISTORY OF club foot repair as child - PAST SURGICAL HISTORY OF 1997 discectomy, lumbar L5-S1 - PAST SURGICAL HISTORY OF wisdom teeth - REMOVAL OF KIDNEY STONE multiple - REVISE MEDIAN N/CARPAL TUNNEL SURG right Carpal tunnel decomp ALLERGIES Lipitor [Atorvastatin Calcium]; Lodine [Etodolac]; Wellbutrin [Bupropion Hcl] MEDICATIONS clopidogrel (PLAVIX) 75 mg tablet Take 75 mg by mouth once daily. hydrOXYzine pamoate (VISTARIL) 25 mg capsule Take 1 capsule by mouth three times daily as needed. LORazepam (ATIVAN) 1 mg tablet DAILY NEEDED PRN For Anxiety/Insomnia metoprolol succinate ER (TOPROL XL) 25 mg 24 hr tablet Take 25 mg by mouth once daily. MULTIVITAMIN ORAL DAILY THERAPEUTIC MULTIVITAMIN TAB Take one(1) tablet daily. aspirin, enteric coated (ASPIRIN, ENTERIC COATED) 81 mg EC tablet Take 81 mg by mouth once daily. atorvastatin (LIPITOR) 40 mg tablet AT BEDTIME BRILINTA 90 mg tablet Take 90 mg by mouth twice daily. carvedilol (COREG) 3.125 mg tablet TWICE A DAY Cholecalciferol, Vitamin D3, 1,000 unit cap Take 1 capsule by mouth once daily. Resmckkvzxs-Klctqgkwx-Azn C-Mn (GLUCOSAMINE CHONDROITIN MAXSTR) 500-400 mg cap Take 1 capsule by mouth three times daily. HYDROcodone-acetaminophen (NORCO) 5-325 mg per tablet Take 2 tablets by mouth twice daily as needed for Pain for up to 30 days.Earliest Fill Date: 03/06/18 HYDROcodone-acetaminophen (NORCO) 5-325 mg per tablet Take 2 tablets by mouth twice daily as needed for Pain for up to 30 days.Earliest Fill Date: 04/05/18 HYDROcodone-acetaminophen (NORCO) 5-325 mg per tablet Take 2 tablets by mouth twice daily as needed for Pain for up to 30 days.Earliest Fill Date: 06/04/18 HYDROcodone-acetaminophen (NORCO) 5-325 mg per tablet Take 2 tablets by mouth twice daily as needed for Pain for up to 30 days.Earliest Fill Date: 07/04/18 HYDROcodone-acetaminophen (NORCO) 5-325 mg per tablet Take 2 tablets by mouth twice daily as needed for Pain for up to 30 days.Earliest Fill Date: 08/03/18 loratadine (CLARITIN) 10 mg tablet Take 1 tablet by mouth once daily. naproxen (NAPROSYN) 500 mg tablet Take 1 tablet by mouth twice daily as needed (for pain/inflammation). Take with food. predniSONE (DELTASONE) 20 mg tablet Take 2 tablets by mouth once daily for 4 days. Take daily with food. trimethoprim-polymyxin eye drops (POLYTRIM) ophthalmic solution Use 2 Drops in the left eye four times daily for 7 days. Use in the affected eye. FAMILY HISTORY Problem Relation Age of Onset - None Unknown - Cancer Mother unknown primary - Coronary Artery Disease Father Social History Substance Use Topics - Smoking status: Former Smoker Packs/day: 2.00 Years: 40.00 Types: Cigarettes Quit date: 07/04/2018 - Smokeless tobacco: Current User - Alcohol use No Objective Physical Exam Constitutional: He is well-developed, well-nourished, and in no distress. HENT: Head: Normocephalic. Right Ear: External ear normal. Left Ear: External ear normal. Nose: Nose normal. Mouth/Throat: Oropharynx is clear and moist. Eyes: Pupils are equal, round, and reactive to light. EOM are normal. Right eye exhibits no discharge. Left eye exhibits discharge (watery). Left eye exhibits no hordeolum. No foreign body present in the left eye. Right conjunctiva is not injected. Left conjunctiva is injected. Visual acuity intact Neck: Normal range of motion. Neck supple. Nursing note and vitals reviewed. ASSESSMENT/PLAN: 1. Allergic conjunctivitis of left eye - ICD9: 372.14, ICD10: H10.12 Allergic - see medication orders - Mild secondary infection suspected due to rubbing/scratching eye-Polytrim - course and contagiousness issues discussed, including hand washing. - Instructed to call if high fever, development of periorbital redness or swelling, eye pain, visual changes, concerns or if symptoms persist. Prescription instructions reviewed with patient as applicable. Patient advised if symptoms do not improve or if symptoms worsen sooner, to contact their primary care physician. Potential red flag symptoms discussed with the patient. Reviewed appropriate action plan to take if red flag symptoms occur. Patient agreeable to treatment plan. Anan Huang APRN.PASCUAL CNOV Observed: 08/11/2018 Status: COMPLETED Source: [place] 11:15 AM [facility] REPOSITORY Office Visit (WSTR) MOSHE ZIMMERMAN ([id number]) 1955 M Date Time Provider Department 08/11/18 11:15 AM ANNA HUANG (CONDENSER TUBE TENDER) WSTR During your visit today, we recorded the following information about you: Temperature Pulse Respiration Blood pressure 97.7 degrees 58/minute 12/minute 132/80 Weight 104.9 kg Anna Huang APRN.PASCUAL 08/11/2018 12:42 PM Signed Subjective HPI Patient presents with: Eye Problem: Left since yesterday Eye became itching, pt admits to rubbing at eye vigorously Denies any otc treatment for symptoms. Review of Systems Constitutional: Negative for chills, fever and malaise/fatigue. HENT: Negative for congestion, ear pain and sore throat. Eyes: Positive for discharge (watery) and redness (eye lid swollen). Negative for blurred vision, double vision, photophobia and pain. Respiratory: Negative for cough. Neurological: Negative for headaches. PAST MEDICAL HISTORY Diagnosis Date - Displacement of lumbar intervertebral disc without myelopathy - Encounter for Zostavax administration 05/20/2015 done at [place] - Raynaud's syndrome - Sciatica - Tobacco abuse - Urinary calculus, unspecified Renal stones--calcium oxalate PAST SURGICAL HISTORY Procedure Laterality Date - COLONOSCOPY W/BX 05/27/10 colonic irritation - EGD W/O BRSH SPECIMEN W/BX 05/27/10 duodenal ulcer - PAST SURGICAL HISTORY OF club foot repair as child - PAST SURGICAL HISTORY OF 1997 discectomy, lumbar L5-S1 - PAST SURGICAL HISTORY OF wisdom teeth - REMOVAL OF KIDNEY STONE multiple - REVISE MEDIAN N/CARPAL TUNNEL SURG right Carpal tunnel decomp ALLERGIES Lipitor [Atorvastatin Calcium]; Lodine [Etodolac]; Wellbutrin [Bupropion Hcl] MEDICATIONS clopidogrel (PLAVIX) 75 mg tablet Take 75 mg by mouth once daily. hydrOXYzine pamoate (VISTARIL) 25 mg capsule Take 1 capsule by mouth three times daily as needed. LORazepam (ATIVAN) 1 mg tablet DAILY NEEDED PRN For Anxiety/Insomnia metoprolol succinate ER (TOPROL XL) 25 mg 24 hr tablet Take 25 mg by mouth once daily. MULTIVITAMIN ORAL DAILY THERAPEUTIC MULTIVITAMIN TAB Take one(1) tablet daily. aspirin, enteric coated (ASPIRIN, ENTERIC COATED) 81 mg EC tablet Take 81 mg by mouth once daily. atorvastatin (LIPITOR) 40 mg tablet AT BEDTIME BRILINTA 90 mg tablet Take 90 mg by mouth twice daily. carvedilol (COREG) 3.125 mg tablet TWICE A DAY Cholecalciferol, Vitamin D3, 1,000 unit cap Take 1 capsule by mouth once daily. Tsntedsgrcs-Ewxbdswci-Bpr C-Mn (GLUCOSAMINE CHONDROITIN MAXSTR) 500-400 mg cap Take 1 capsule by mouth three times daily. HYDROcodone-acetaminophen (NORCO) 5-325 mg per tablet Take 2 tablets by mouth twice daily as needed for Pain for up to 30 days.Earliest Fill Date: 03/06/18 HYDROcodone-acetaminophen (NORCO) 5-325 mg per tablet Take 2 tablets by mouth twice daily as needed for Pain for up to 30 days.Earliest Fill Date: 04/05/18 HYDROcodone-acetaminophen (NORCO) 5-325 mg per tablet Take 2 tablets by mouth twice daily as needed for Pain for up to 30 days.Earliest Fill Date: 06/04/18 HYDROcodone-acetaminophen (NORCO) 5-325 mg per tablet Take 2 tablets by mouth twice daily as needed for Pain for up to 30 days.Earliest Fill Date: 07/04/18 HYDROcodone-acetaminophen (NORCO) 5-325 mg per tablet Take 2 tablets by mouth twice daily as needed for Pain for up to 30 days.Earliest Fill Date: 08/03/18 loratadine (CLARITIN) 10 mg tablet Take 1 tablet by mouth once daily. naproxen (NAPROSYN) 500 mg tablet Take 1 tablet by mouth twice daily as needed (for pain/inflammation). Take with food. predniSONE (DELTASONE) 20 mg tablet Take 2 tablets by mouth once daily for 4 days. Take daily with food. trimethoprim-polymyxin eye drops (POLYTRIM) ophthalmic solution Use 2 Drops in the left eye four times daily for 7 days. Use in the affected eye. FAMILY HISTORY Problem Relation Age of Onset - None Unknown - Cancer Mother unknown primary - Coronary Artery Disease Father Social History Substance Use Topics - Smoking status: Former Smoker Packs/day: 2.00 Years: 40.00 Types: Cigarettes Quit date: 07/04/2018 - Smokeless tobacco: Current User - Alcohol use No Objective Physical Exam Constitutional: He is well-developed, well-nourished, and in no distress. HENT: Head: Normocephalic. Right Ear: External ear normal. Left Ear: External ear normal. Nose: Nose normal. Mouth/Throat: Oropharynx is clear and moist. Eyes: Pupils are equal, round, and reactive to light. EOM are normal. Right eye exhibits no discharge. Left eye exhibits discharge (watery). Left eye exhibits no hordeolum. No foreign body present in the left eye. Right conjunctiva is not injected. Left conjunctiva is injected. Visual acuity intact Neck: Normal range of motion. Neck supple. Nursing note and vitals reviewed. ASSESSMENT/PLAN: 1. Allergic conjunctivitis of left eye - ICD9: 372.14, ICD10: H10.12 Allergic - see medication orders - Mild secondary infection suspected due to rubbing/scratching eye-Polytrim - course and contagiousness issues discussed, including hand washing. - Instructed to call if high fever, development of periorbital redness or swelling, eye pain, visual changes, concerns or if symptoms persist. Prescription instructions reviewed with patient as applicable. Patient advised if symptoms do not improve or if symptoms worsen sooner, to contact their primary care physician. Potential red flag symptoms discussed with the patient. Reviewed appropriate action plan to take if red flag symptoms occur. Patient agreeable to treatment plan. Anna Huang APRN.RECORD SYSTEMS ANALYST Referring Provider: SELF [[id number]] Allergies As of Date: 08/11/2018 Noted Allergy Reaction LIPITOR (ATORVASTATIN CALCIUM) 06/07/2005 Comments: muscle cramps LODINE (ETODOLAC) 02/18/2008 Comments: depression WELLBUTRIN (BUPROPION HCL) 06/07/2005 Date Reviewed: 08/11/2018 Reviewed by: Cheyenne Addison Ma - Fully Assessed Reason for Visit: Eye Problem [43] Cmt: L Primary Visit Diagnosis:Allergic conjunctivitis of left eye [H10.12] Order(s):predniSONE (DELTASONE) 20 mg tabletTake 2 tablets by mouth once daily for 4 days. Take daily with food.Disp: 8 tabletRfl: 0 trimethoprim-polymyxin eye drops (POLYTRIM) ophthalmic solutionUse 2 Drops in the left eye four times daily for 7 days. Use in the affected eye.Disp: 2.8 mLRfl: 0 loratadine (CLARITIN) 10 mg tabletTake 1 tablet by mouth once daily.Disp: 30 tabletRfl: 0 Prescriptions as of 08/11/2018 Sig: CLOPIDOGREL 75 MG TABLET Take 75 mg by mouth once tristin* HYDROXYZINE PAMOATE 25 MG CAP* Take 1 capsule by mouth three* LORAZEPAM 1 MG TABLET DAILY NEEDED PRN For Anxie* METOPROLOL SUCCINATE ER 25 MG* Take 25 mg by mouth once tristin* MULTIVITAMIN ORAL DAILY THERAPEUTIC MULTIVITAMIN TABL* Take one(1) tablet daily. ASPIRIN 81 MG TABLET,DELAYED * Take 81 mg by mouth once tristin* ATORVASTATIN 40 MG TABLET AT BEDTIME BRILINTA 90 MG TABLET Take 90 mg by mouth twice calvin* CARVEDILOL 3.125 MG TABLET TWICE A DAY CHOLECALCIFEROL (VITAMIN D3) * Take 1 capsule by mouth once * CTGJCVOGSLR-[id number]-JTZ C-M* Take 1 capsule by mouth three* HYDROCODONE 5 MG-ACETAMINOPHE* Take 2 tablets by mouth twice* HYDROCODONE 5 MG-ACETAMINOPHE* Take 2 tablets by mouth twice* HYDROCODONE 5 MG-ACETAMINOPHE* Take 2 tablets by mouth twice* HYDROCODONE 5 MG-ACETAMINOPHE* Take 2 tablets by mouth twice* HYDROCODONE 5 MG-ACETAMINOPHE* Take 2 tablets by mouth twice* LORATADINE 10 MG TABLET Take 1 tablet by mouth once d* NAPROXEN 500 MG TABLET Take 1 tablet by mouth twice * Patient not taking: Reported on 08/06/2018 PREDNISONE 20 MG TABLET Take 2 tablets by mouth once * POLYMYXIN B SULFATE 10,000 UN* Use 2 Drops in the left eye f* Problem List As Of Date 08/11/2018 Noted Resolved RAYNAUD'S SYNDROME [I73.00] Displacement of lumbar intervertebral disc with* More... SCIATICA [M54.30] URINARY CALCULUS NOS [N20.9] More... 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] INVALID FOR* TOBACCO USE DISORDER [F17.200] INVALID FOR* Tendonitis [M77.9] INVALID FOR* Hemorrhoids [K64.9] INVALID FOR* Blood in stool [K92.1] INVALID FOR* Duodenal ulcer due to Helicobacter pylori [K26.*INVALID FOR* Lumbar stenosis with neurogenic claudication [M*INVALID FOR* Meralgia paresthetica of left side [G57.12] INVALID FOR* ED (erectile dysfunction) [N52.9] INVALID FOR* Chronic low back pain [M54.5, G89.29] INVALID FOR* DDD (degenerative disc disease), lumbar [M51.36]INVALID FOR* Internal hemorrhoids without mention of complic*INVALID FOR* Pain in both hands [M79.641, M79.642] INVALID FOR* Class 1 obesity due to excess calories without *INVALID FOR* Prescriptions ordered this encounter Disp Refills Start End PREDNISONE 20 MG TABLET 8 ta* 0 08/11/2018 08/15/2018 Route: ORAL Sig: Take 2 tablets by mouth once daily for 4 days. Take daily with food. POLYMYXIN B SULFATE 10,000 UNIT-TRIM* 2.8 * 0 08/11/2018 08/18/2018 Route: LEFT EYE Sig: Use 2 Drops in the left eye four times daily for 7 days. Use in the affected eye. LORATADINE 10 MG TABLET 30 t* 0 08/11/2018 09/10/2018 Route: ORAL Sig: Take 1 tablet by mouth once daily. Disposition: Return if symptoms worsen or fail to improve. Follow-up and Disposition History Recorded Encounter Status:Closed by ANNA HUANG on 08/11/18 CARDIOLOGY VISIT Observed: 08/08/2018 Status: F Source: TAFT REPORT 12:[address] [facility] REPOSITORY [facility] [address] [place] [address] OFFICE VISIT Date of Service: 08/08/18 MR#: [id number] Acct: [id number] Name: MOSHE ZIMMERMAN Rep #: [id number] : 1955 Provider: Sacha Atkins MD Age/Sex: 63/M Location: [facility] Status: Signed HPI HPI Chief Complaint: chest pain Details: Details: MOSHE ZIMMERMAN, is a 63 nondiabetic M with hypertension, hypercholesterolemia, former smoker of approximately 48 pack years and quit in May 2018, who presents to the office today for follow-up of acute inferior wall myocardial infarction. On 07/04/18 the patient woke up at 3 AM with sudden onset chest pain radiating to his left arm. STEMI alert was called and patient underwent emergent catheterization and angioplasty and stenting x2 to the mid right coronary artery receiving a Cardinal Elunir DENNIS RX 3.0x28 as well as a Cardinal Elunir DENNIS RX 3.0x15, postdilated with a 3.0 noncompliant balloon. Subsequent echocardiogram dated 07/04/18 showed an EF around 50%, with mild inferior posterior hypokinesis and normal RVSP In addition the patient was found to have significant mid LAD stenosis which required elective intervention which took place on 07/24/18. At that time he underwent the following intervention: Successful PTCA/DENNIS of mid LAD with a 2.25 x 20 Promus Synergy, post dilated with a 2.5 x 8 NC balloon; 85%-->0%, no dissection. Successful PTCA/DENNIS mid LCX after FFR of 0.81, utilizing a 3.0 x 28 Promus Synergy, post dilated throughout with 3.25 x 12 NC; 75%-->0%, no dissection. 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 He does use glass gloves when he is working but occasionally gets cuts. He is taking and tolerating his medicines well. He did have some minor indigestion which was relieved with Maalox and discontinuation of NSAIDs. In addition, the patient has a history of Raynaud's disease with vasoconstriction of the vessels in his hand. Patient was doing fairly well up until yesterday and today when he developed atypical nonexertional midsternal chest pain describing both of his arms being very heavy. Apparently had this preceding his OR. They do not occur with exertion. He is also developed shortness of breath which takes place about 5 minutes after he takes all of his medications in the morning. Patient is awaiting to start cardiac rehab on 08/14/18. He denies any exertional chest pain, angina, presyncope or syncope. He has successfully quit smoking as far. Our office today's blood pressure is 120/50, pulse is 57 and regular. Physical exam is as below. His right groin area is clean/dry/intact with excellent 2+ pulses. His lipids as of 07/05/18 show an LDL of 71 and HDL of 43. Repeat lipids are pending. EKG today demonstrates sinus bradycardia card with recent inferior wall myocardial infarction, no acute change. Orthostatics today show 120/70 with a pulse of 52 lying down, and 122/80 with a pulse of 64 standing up. Patient was symptomatic standing up with some dizziness. 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 Required: No Is patient in pain?: No Allergies etodolac Allergy (Severe, Verified 07/15/18 18:54) Hives Medications Hydrocodone/Acetaminophen [Hydrocodone-Acetamin 5-325 mg] 1 tab PO Q4H PRN PRN 07/04/18 [History Confirmed 08/06/18] Multivitamin [Multiple Vitamins] 1 tab PO DAILY 07/04/18 [History Confirmed 08/06/18] Lorazepam [Ativan] 1 mg PO DAILY PRN PRN #5 tab 07/06/18 [Rx Confirmed 08/06/18] aspirin 81 mg tablet,delayed release 81 mg PO DAILY@0800 #90 tab 07/16/18 [Rx Confirmed 08/06/18] atorvastatin 40 mg tablet 40 mg PO QHS #90 tab 07/16/18 [Rx Confirmed 08/06/18] hydroxyzine pamoate 25 mg capsule 25 mg PO TID-QID PRN 07/16/18 [History Confirmed 08/06/18] clopidogrel 75 mg tablet 75 mg PO .COMPLEX #30 tab 08/08/18 [Rx Confirmed 08/08/18] metoprolol tartrate 25 mg tablet 25 mg PO .COMPLEX #30 tab 08/08/18 [Rx Confirmed 08/08/18] PFSH Medical History Dyspnea on exertion (Acute) History of inferior wall myocardial infarction (Chronic 07/04/18) Nicotine dependence (Chronic) Hyperlipidemia (Chronic) Essential (primary) hypertension (Chronic) Atherosclerosis of coronary artery of [place] heart without angina pectoris (Chronic) Acute inferior myocardial infarction (Resolved 07/04/18) STEMI (ST elevation myocardial infarction) (Resolved) Surgical History Stented coronary artery (Chronic 07/24/18) H/O right coronary artery stent placement (Chronic 07/04/18) H/O hemorrhoidectomy (Resolved) History of back surgery (Resolved) Family History Father Heart disease Mother Cancer Social History Smoking Status: Former smoker quit date: 07/04/18 ROS Const Const: Positive for other (Has had chest pain off and on last 2 days, but this am 5 min, severe.); negative for fatigue, weakness, body ache, fever(s), headache(s), chills, frequent falls, night sweats, daytime sleepiness, difficulty sleeping, excessive sweating, weight gain, weight loss, increased appetite, poor appetite or anorexia Eyes Eyes: Negative for blind spots, loss of peripheral vision, transient loss of vision, blurry vision, change in vision, double vision, floaters, tunnel vision or other ENT ENT: Negative for dizziness, hearing loss, tinnitus, Nosebleed/epistaxis, balance problems, post nasal drip, lip swelling, tongue swelling, bleeding gums, hoarseness, neck pain, dry mouth, other or headache(s) Cardio Chest Pain: Yes (Midsternal radiating out to arms, diaphoretic for short time) Location: mid sternal, other (radiating out to both arms.) Duration: minutes (5 minutes, arms heavy) Palpitations: No Edema: None Muscle aches with walking: None Resp Respiratory: Positive for other (short of breath with the chest pain); negative for SOB with activity, SOB at rest, SOB orthopnea\SOB lying down, Cough, Coughing up blood/hemoptysis, chest congestion, pain on inspiration, snoring, stridor, wheezing, crackles or paroxysmal nocturnal dyspnea GI GI: Negative nausea, vomiting, heartburn, constipation, belching, bloating, cramping, vomiting blood/hematemesis, bright, red blood in stools, black,tarry stools, loose stools, Difficulty Swallowing or other : Negative for hematuria, frequent nighttime urination/ nocturia, erectile dysfunction or abnormal vaginal bleeding Musc Musc: Negative for balance problems, muscle aches/ myalgia, muscle weakness or joint pain Skin Skin: Negative redness, non-healing lesions, rash, unusual bruising, skin ulcer, wounds, jaundice or other Neuro Neuro: Negative for blurry vision, double vision, dizziness, lightheadedness, near syncope, syncope, orthostatic symptoms, confusion, memory loss, restless legs, vertigo, seizures, lack of coordination, other, weakness, headache(s) or frequent falls Nicanor Hematologic/Lymphatic: Negative for easy bleeding, easy bruising, enlarged lymph nodes or other Endo Endo: Negative for cold intolerance, heat intolerance, flushing, increased thirst/drinking, increased hunger, hair loss, hair growth, other, fatigue or excessive sweating Psych Psych: Negative for anxiety, depression, thoughts of harming anyone, thoughts of harming yourself, visual hallucinations, panic attacks or audible hallucinations Allergy Allergy/Immunology: Negative for lip swelling, Negative for tongue swelling, Negative for rash, Negative for throat swelling, Negative for hives Cardiology Exam Const Appearance: cooperative, healthy appearing and no acute distress Nutritional Appearance: well nourished Orientation: alert, oriented x3 and oriented to person Head Head: normal to inspection, atraumatic and normocephalic Nose: external nose normal Face and Sinus: face symmetric Mouth: oral mucosae normal Eyes General: appearance normal, both eyes and all related structures Eyelids: eyelids normal Conjunctivae: conjunctivae normal Pupils: PERRL and normal by confrontation EOM: EOM intact bilaterally Neck Neck: normal visual inspection and full ROM Carotids: normal carotid upstroke Chest Chest inspection: normal inspection of the chest Auscultation: Bilateral: Clear to Auscultation Cardio Palpation: normal PMI Rate: regular rate Rhythm: regular rhythm Heart sounds: S1 normal and S2 normal GI GI: normal to inspection, no hepatosplenomegaly and bowel sounds present Neuro General: alert, oriented x3, awake, CN's II-XI intact bilaterally and moves all extremities Skin Skin: no rashes or lesions noted Extremities Pulses: Normal: Right Femoral Pulse, Left Femoral Pulse, Right Dorsalis Pedis Pulse, Left Dorsalis Pedis Pulse, Right Posterior Tibial Pulse, Left Posterior Tibial Pulse, Right Radial Pulse, Left Radial Pulse Lower Extremity Edema: None: Bilateral Psych Psychological: normal affect Assessment AND Plan 1. Atherosclerosis of coronary artery of [place] heart without angina pectoris I25.10 RNE-QMU-Ugth-Mid RCA w/ 3.0 x 28 mm and 3.0 x 15 mm Elunir Stent and DENNIS-Distal RCA w/ 2.5 x 28 mm Elunir 07/04/18 Plan 1. Coronary artery disease: Patient is subsequent acute inferior wall myocardial infarction with subsequent elective angioplasty and stenting of his LAD and left circumflex artery. Patient was doing well up into the last couple days when he developed atypical nonexertional midsternal chest pain with heaviness in both arms. This appeared to precede his STEMI 1 month ago, and he has had this for the better part of a year. It was attributed prior to this by his PCP to possible back spasms although the patient denies any back pain. It appears to occur about 5 minutes or so after he takes his medications which may be related to his Brilinta. In conjunction with this he complains of dyspnea which was not present prior to his OR. I recommended that he discontinue his Brilinta, and be loaded with Plavix 300 mg x1 now followed by 75 mill grams p.o. daily. He will continue baby aspirin and Coreg. He is not on any MALINDA inhibitors at this time. In addition given his new onset of symptoms I recommended he undergo a stress echocardiogram to evaluate his anterior and lateral davis given her recent stents. If this is grossly abnormal for ischemia he may require diagnostic coronary angiogram to recheck his stents. If this is negative for ischemia I would recommend medical management and proceeding to cardiac rehab. Although the patient was not orthostatic by blood pressure and heart rate standing up, he did have spots before his eyes and did feel dizzy. His Coreg may be too much for him, and recommend switching him from Coreg to Lopressor 12.5 mill grams p.o. twice daily. Orders Orders: 2. Hyperlipidemia E78.5 Plan 2. Hyperlipidemia: Repeat lipids are pending. We will check them in the next couple weeks after he starts cardiac rehab. 3. Return office in 6 months. This note was generated using a voice recognition system and there may be incorrect words, spelling or punctuation that were not noted when reviewing the office note prior to saving. Orders Orders: Plan Detail Other Orders Orders: Other Medications New: clopidogrel 75 mg PO 4 tablets by mouth tonight only, then 1 tablet by mouth every morning.; 30 tabs 11RF Discontinued: Follow Up +6M (Sanket) Coding Level of Care Code Off vis,est,level 3 Diagnoses Atherosclerosis of coronary artery of [place] heart without angina pectoris I25.10 Hyperlipidemia E78.5 Coding Level of Care Code Off vis,est,level 3 Diagnoses Atherosclerosis of coronary artery of [place] heart without angina pectoris I25.10 Hyperlipidemia E78.5 08/08/18 1215 <Electronically signed by Sacha Atkins MD> Date Scaha Atkins MD Cosigner Signature: Date (if applicable) CC: Abel Pablo MD 12 LEAD EKG PERFORMED Observed: 08/08/2018 Status: F Source: [facility] BY [facility] 11:[address] [facility] REPOSITORY [facility] [address] [place] [address] 12 Lead EKG performed by [facility] 08/08/18 1142 MR#: [id number] Acct: [id number] Name: MOSHE ZIMMERMAN Rep #: [id number] : 1955 63 From: Sacha Atkins MD Attending Dr: Sacha Atkins MD Status: DEP AMB Ordering Dr: Sacha Atkins MD Date: 08/08/18 Location: [facility] Sex: M C Admitted: [facility]/12 Lead EKG performed by [facility] Sinus Bradycardia -Inferior infarct -age undetermined. ABNORMAL 12/21/18 1012 <Electronically signed by Sacha Atkins MD> Date Sacha Atkins MD CC: Abel Pablo MD Date Dictated: 08/08/18 1142 Date Transcribed: 08/08/18 1142 Energy Engineer: DN Signed CR - HISTORY AND Observed: 08/06/2018 Status: F Source: TAFT PHYSICAL 1:[address] [facility] REPOSITORY [facility] [address] [place] [address] CR - History AND Physical MR#: [id number] Acct: [id number] Name: MOSHE ZIMMERMAN Rep #: [id number] : 1955 63 From: Annette White RN PCP: Abel Pablo MD DOS: 08/06/18 CR - History AND Physical - General Arrival date:: 08/06/18 Arrival time:: 09:30 Date of Referral:: 07/24/18 Date of CR Evaluation:: 08/06/18 Referring Physician: DR. ATKINS Primary Diagnosis: PCI WITH STENT - History of Present Cardiac Event Onset Date: Enter Onset Date of cardiac illnesses in Comment field below Current stable Angina Pectoris:: No Acute Myocardial Infarction within 12 months:: Yes Coronary Artery Bypass Graft:: No Heart valve replacement or repair:: No PTCA or coronary stenting:: Yes Heart or Heart-Lung Transplant:: No Heart Failure EF <35%:: No - 50-55% Type of Symptoms:: SEVERE INDIGESTION, ARM PAIN, N AND V, DIAPHORESIS Interventions with present event:: PCI WITH STENT 5 Were there any complications?: NONE - Medications Home Medications: Ambulatory Orders Medication Instructions Recorded Hydrocodone/Acetaminophen 1 tab PO Q4H PRN PRN 07/04/18 [Hydrocodone-Acetamin 5-325 mg] Multivitamin [Multiple Vitamins] 1 tab PO DAILY 07/04/18 - Allergies Allergies/Adverse Reactions: Allergies etodolac Allergy (Severe, Verified 07/15/18 18:54) Hives - Sleep Disorder Evaluation Hx of Sleep Apnea: No Do you snore loudly (louder than talking or can be heard through closed doors)?: No Do you often feel tired/ fatigued/ sleepy during daytime?: No Has anyone observed you stop breathing during sleep?: No History of Hypertension (for STOP score): No - PT STATES HE HAD A PREVIOUS SLEEP STUDY, LESS THAN 10 YRS AGO STOP Results: Negative Advanced Directives - Advanced Directives Power of Cane Packer: No Living Will: No Advance Directives Information Provided: Yes Advance Directives on File: No DNR Order?:: No Past Medical History - Past Medical Illness Medical History: Past Medical History (Last Reviewed 08/06/18 @ 08:35 by Gabi Moura) Dyspnea on exertion (Acute) R06.09 History of inferior wall myocardial infarction (Chronic) Onset Date: 07/04/18 I25.2 Nicotine dependence (Chronic) F17.200 Hyperlipidemia (Chronic) E78.5 Essential (primary) hypertension (Chronic) I10 Atherosclerosis of coronary artery of [place] heart without angina pectoris (Chronic) I25.10 NDX-XLB-Gipz-Mid RCA w/ 3.0 x 28 mm and 3.0 x 15 mm Elunir Stent and DENNIS-Distal RCA w/ 2.5 x 28 mm Elunir 07/04/18 Acute inferior myocardial infarction (Resolved) Onset Date: 07/04/18 I21.19 STEMI (ST elevation myocardial infarction) (Resolved) I21.3 - Past Surgical History Surgical History: Past Surgical History (Last Reviewed 08/06/18 @ 08:35 by Gabi Moura) Stented coronary artery (Chronic) Onset Date: 07/24/18 Z95.5 DENNIS to mid LAD (2.25 X 20 Promus Synergy); DENNIS to mid LCX after FFR of 0.81 (3.0 X 28 Promus Synergy) H/O right coronary artery stent placement (Chronic) Onset Date: 07/04/18 Z95.5 INQ-HVQ-Owyi-Mid RCA w/ 3.0 x 28 mm and 3.0 x 15 mm Elunir Stent and DENNIS-Distal RCA w/ 2.5 x 28 mm Elunir 07/04/18 H/O hemorrhoidectomy Z98.890 History of back surgery Z98.890 Surgical History: - - Internal hemorrhoid surgery; and back surgery - Family History Summary Family History: Family History (Last Reviewed 08/06/18 @ 08:35 by Gabi Moura) Father Heart disease Mother Cancer Social History - Smoking History Smoking Status: Former smoker Years Smokin Packs Smoked per Day: 2.5 Hx Smoking Cessation Date: 08/04/2018 Hx Tobacco Use: Yes - Alcohol Use Alcohol Usage: Yes - CASUAL - Substance Abuse Hx Substance Use: No - Occupation Occupation (List type of work in comments):: Employed Hours worked per day:: 9 - Hobbies, Recreation, Social Activities Hobbies: Other - 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 - Children How many children do you have?: 3 Do any of your children live nearby?: Yes - Safety Do you feel safe in your surroundings?: Yes Review of Systems - Review of Systems Hints: Right click = Denies (Slash). Left click = Reports ([place]) Review of Present Symptoms: Reports: Shortness of Breath at Rest - PT BELIEVES IT IS DUE TO HIS BRILINTA. SUGGESTED F/U WITH DR ATKINS, Shortness of Breath with Exertion, Fatigue, Appetite - Normal, Sleep - Normal. Denies: PVD, Operative Discomfort, Angina, Wound Healing, Dizziness/Lightheadedness, Heart Arrhythmia/Irregularities, Appetite - Special Diet - Pain Is Patient Pain Free?: Yes Pain Location: chest Pain Level: 0/10 Risk Factor Assessment - Chief Complaint Chief Complaint: CURRENT PCI PT WHO PRESENTS TODAY FOR CR INITIAL EVALUATION - Vital Signs Temperature: 98.6 F Respiratory Rate: 16 Pulse Ox: 96 Blood Pressure: 138/80 Nailbeds:: PINK - Pulse Pulse Rate: 56 Pulse Rhythm: Regular - Hypertension Blood Pressure Sitting - Left Arm: 130/80 - Diabetes Nutrition Referral for Diabetes: No - Obesity Height: 5 ft 11 in Weight:: 224 lb Weight in Pounds: 224.0 lbs Weight Source: Stated by Patient Body Mass Index (BMI): 31.2 Nutritional Referral for Obesity: Yes - BMI 31.2 - Physical Inactivity Physical Inactivity: None - Risk Stratification Risk Guidelines: Lowest Risk: Risk Factor for Dyslipidemia, Risk Factor for Diabetes, Risk Factor for Hypertension, Moderate Risk: Risk Factor for Smoking, Risk Factor for Sedentary Lifestyle, Highest Risk: Risk Factor for Obesity, Risk Factor for Depression - PT STATES HAS BEEN DEPRESSED/TEARFUL - For Smoking Smoking Risk Guidelines: Smoking Low Risk: None or quit greater than 6 months ago. Smoking Moderate Risk: Smoker or quit 6 months or less ago. Smoking High Risk: Smoker - For Dyslipidemia Dyslipidemia Risk Guidelines: Low Risk: Moderate Risk: High Risk: 15-25% fat 25.1-29% fat >/= 30% fat. <7% sat fat 7-9% sat fat >9% sat fat. <150 mg chol 150-299 mg chol >/= 300 mg chol. LDL <100 LDL 100-129 LDL >/= 130. Chol/HDL ratio <5.0 Chol/HDL ratio 5.0-6.0 Chol/HDL ratio >6.0. Triglycerides <100 Triglycerides 100-149 Triglycerides >/= 150 - For Diabetes Mellitus Diabetes Risk Guidelines: Diabetes Low Risk: HgA1c <6.5% and/or FBG <120. Diabetes Moderate Risk: HgA1c 6.6-7.9% and/or FBG 120- 180. Diabetes High Risk: HgA1c >/= 8% and/or FBG >180 - For Obesity/Overweight Obesity/Overweight Risk Guidelines: Obesity Low Risk: BMI <25.0. Obesity Moderate Risk: BMI 25-29.9. Obesity High Risk: BMI >/= 30.0 - For Hypertension Hypertension Risk Guidelines: Hypertension Low Risk: Systolic <120 and Diastolic <80. Hypertension Moderate Risk: Systolic 120-139 and Diastolic 80-89. Hypertension High Risk: Systolic >/= 140 and Diastolic >/= 90 - For Sedentary Lifestyle Sedentary Lifestyle Risk Guidelines: Sedentary Lifestyle Low Risk: >/= 1,500 kcal/week. Sedentary Lifestyle Moderate Risk: 700-1,499 kcal/week. Sedentary Lifestyle High Risk: < 700 kcal/week - For Depression Depression Risk Guidelines: Depression Low Risk: Not clinically depressed. Depression Moderate Risk: Mildly depressed. Depression High Risk: Clinically depressed - Family History Family History: Family History (Last Reviewed 08/06/18 @ 08:35 by Gabi Moura) Father Heart disease Mother Cancer Motivation - Motivation to Participate On a scale of 1 to 10, how prepared are you to commit to attending program?: 10 What do you see as barriers to successfully being able to complete the program?: POSSIBLY WORK What do you see as the benefits of succesfully completing the program? In other words, what do you hope to get out of participating in the program?: A LOT OF BENEFITS, ESTABLISH EXERCISE ROUTINE, NUTRITION,ENERGY Are there issues you are dealing with that will interfere with completing the program?: NONE Do you have a spouse or signficant other, family or friends who will help support you to complete the program?: FAMILY AND FRIENDS 08/06/18 1056 <Electronically signed by Annette White RN> Date Annette White RN Outcome assessment reviewed. Exercise plan approved as documented. Treatment plan and goals support patient needs/abilities. Continue with current plan. I certify the patient demonstrates improvement and remains willing and capable of participation. the patient continues to benefit from cardiac rehab services/training. The patient may continue at current intensity, endurance and modality and progress per protocol. 08/06/18 1311 <Electronically signed by Sacha Atkins MD> [facility] Signature: Date Sacha Atkins MD CC: Signed PROGRESS Observed: 08/06/2018 Status: COMPLETED Source: [place] 7:51 AM [facility] REPOSITORY HNO ID: [id number] Author: Nael Vasquezmera Service: (none) Author Type: Physician Type: Progress Notes Filed: 08/06/2018 12:12 PM Note Text: Initial Podiatric Office Visit: Chief Complaint: This 63 year old male who presents with chief complaint:right foot pain HPI Patient presents to clinic for initial evaluation of right foot pain Patient has had pain to right lower extremity x 3 years He has history of clubfoot as a child and was casted for correction He had right foot pain many years ago and was casted x [address] Ernst Verde which did help Patient recently had heart attack and therefore, he has been off his foot and this has helped with his foot pain. PAIN EVALUATION 08/06/2018 Pain Score: 4 4-9/10 Pain Location: Foot-Right Description: Throbbing Duration Amount of Time: - several Duration Units: Years Frequency: Continuous Intervention: Relaxation;Cold;Medication ice, Naprosyn Hemoglobin A1C (%) Date Value 03/16/2018 5.7 PCP: Abel Pablo MD PAST MEDICAL HISTORY Diagnosis Date - Displacement of lumbar intervertebral disc without myelopathy - Encounter for Zostavax administration 05/20/2015 done at [facility] - Raynaud's syndrome - Sciatica - Tobacco abuse - Urinary calculus, unspecified Renal stones--calcium oxalate Current Outpatient Prescriptions: aspirin, enteric coated (ASPIRIN, ENTERIC COATED) 81 mg EC tablet Take 81 mg by mouth once daily. atorvastatin (LIPITOR) 40 mg tablet AT BEDTIME BRILINTA 90 mg tablet Take 90 mg by mouth twice daily. carvedilol (COREG) 3.125 mg tablet TWICE A DAY Cholecalciferol, Vitamin D3, 1,000 unit cap Take 1 capsule by mouth once daily. Kyibzqitvjj-Ovvhpvtaj-Lnn C-Mn (GLUCOSAMINE CHONDROITIN MAXSTR) 500-400 mg cap Take 1 capsule by mouth three times daily. HYDROcodone-acetaminophen (NORCO) 5-325 mg per tablet Take 2 tablets by mouth twice daily as needed for Pain for up to 30 days.Earliest Fill Date: 08/03/18 hydrOXYzine pamoate (VISTARIL) 25 mg capsule Take 1 capsule by mouth three times daily as needed. MULTIVITAMIN ORAL DAILY HYDROcodone-acetaminophen (NORCO) 5-325 mg per tablet Take 2 tablets by mouth twice daily as needed for Pain for up to 30 days.Earliest Fill Date: 03/06/18 HYDROcodone-acetaminophen (NORCO) 5-325 mg per tablet Take 2 tablets by mouth twice daily as needed for Pain for up to 30 days.Earliest Fill Date: 04/05/18 HYDROcodone-acetaminophen (NORCO) 5-325 mg per tablet Take 2 tablets by mouth twice daily as needed for Pain for up to 30 days.Earliest Fill Date: 06/04/18 HYDROcodone-acetaminophen (NORCO) 5-325 mg per tablet Take 2 tablets by mouth twice daily as needed for Pain for up to 30 days.Earliest Fill Date: 07/04/18 LORazepam (ATIVAN) 1 mg tablet DAILY NEEDED PRN For Anxiety/Insomnia naproxen (NAPROSYN) 500 mg tablet Take 1 tablet by mouth twice daily as needed (for pain/inflammation). Take with food. (Patient not taking: Reported on 08/06/2018 ) THERAPEUTIC MULTIVITAMIN TAB Take one(1) tablet daily. No current facility-administered medications for this visit. ALLERGIES Allergen Reactions - Lipitor [Atorvastat* muscle cramps - Lodine [Etodolac] depression - Wellbutrin [Bupropi* PAST SURGICAL HISTORY Procedure Laterality Date - COLONOSCOPY W/BX 05/27/10 colonic irritation - EGD W/O BRSH SPECIMEN W/BX 05/27/10 duodenal ulcer - PAST SURGICAL HISTORY OF club foot repair as child - PAST SURGICAL HISTORY OF 1997 discectomy, lumbar L5-S1 - PAST SURGICAL HISTORY OF wisdom teeth - REMOVAL OF KIDNEY STONE multiple - REVISE MEDIAN N/CARPAL TUNNEL SURG right Carpal tunnel decomp FAMILY HISTORY Problem Relation Age of Onset - None Unknown - Cancer Mother unknown primary - Coronary Artery Disease Father Social History Marital status: Spouse name: Jia Years of education: Number of children: Occupational History Occupation Employer [employer] Social History Main Topics Smoking status: Former Smoker Packs/day: 2.00 Years: 40.00 Types: Cigarettes Quit date: 07/04/2018 Smokeless tobacco: Current User Alcohol use: No Drug use: No REVIEW OF SYSTEMS GENERAL: Negative for Malaise, significant weight loss, fever RESPIRATORY: Negative for cough, wheezing and shortness of breath CARDIOVASCULAR: Negative for chest pain, leg swelling and palpitations GI: Negative for abdominal discomfort, blood in stools or black stools and change in bowel habits : Negative for dysuria, frequency and incontinence MUSCULOSKELETAL: Positive for right foot pain. SKIN: Negative for lesions, rash, and itching. HEMATOLOGY/LYMPHOLOGY Negative for prolonged bleeding, bruising easily, and swollen nodes. ENDOCRINE: Negative for cold or heat intolerance, polyuria, polydipsia and goiter. NEURO: negative Physical Exam: Constitutional: Pt is a well developed 63 year old male who is alert, oriented and cooperative Eyes: Following during examination. No redness or drainage. Respiratory: RR normal and nonlabored. Even breathing. No evidence of distress or shortness of breath. Psychology: Patient is engaged during conversation. Normal affect and mood. Does not appear depressed or anxious during encounter. Vascular: Dorsalis pedis and posterior tibial pulses palpable as b/l Capillary Fill time < 5 seconds to digits 1-5 b/l Skin temperature warm to warm proximal to distal b/l Hair growth present to digits Neurological: intact light touch/epicritic sensation Vibratory sensation intact to hallux b/l intact protective sensation no significant neurological deficits Dermatological: Nails 1-5 b/l appear normal. Webspaces clean and dry 1-4 b/l. Skin appears well hydrated and supple. good color, texture, turgor. No open lesions present. No callosities present. Musculoskeletal/Orthopaedic: Patient has pain to palpation of right subtalar joint Foot type is pronated structurally AJ ROM is decreased with knee extended and flexed 1st MPJ is full when loaded and no pain or crepitus are noted with ROM. MTJ, STJ are full and free of pain and crepitus. +5/5 muscle strength dorsiflexion, plantarflexion, inversion, eversion b/l Radiographs: 3 views right foot reviewed August 06, 2018: I have personally reviewed and interpreted these XR myself: There is moderate arthritis of right hindfoot ASSESSMENT: (M19.079) Arthritis of foot (primary encounter diagnosis) (M79.671) Pain in right foot PLAN: 1. History and physical examination performed. 2. XR reviewed with patient and interpreted today 3. Discussed pain of right foot. He has been casted in past which was helpful for him but he needs to be active and for this reason, I am going to recommend nsaids prn and use of powerstep inserts. 4. He is to break the inserts in one hour/day and increase daily. 5. F/u in 1 month. If no improvement, consider injection. Nael Shepherd DPM PROGRESS Observed: 08/06/2018 Status: COMPLETED Source: [place] 7:46 AM [facility] RE[facility]IT[facility] HNO ID: [id number] Author: Mirlande Cotter RN Service: (none) Author Type: (none) Type: Progress Notes Filed: 08/06/2018 12:12 PM Note Text: AMB ROOMING INTAKE FLOWSHEET DATA Risk Screening Do you have concerns about personal safety or safety in the home?: No Pain Pain Score: 4/10 (4-9/10) Pain Location: Foot-Right Description: Throbbing Duration Amount of Time: (several) Duration Units: Years Frequency: Continuous Intervention: Relaxation, Cold, Medication (ice, Naprosyn) New patient is here for R foot pain. Pain present for several years. Patient denies any injury to foot. He states he had clubfoot as a child and was casted to correct deformity. Pain is constant but varies with activity. He states he has been off of work since the middle of June d/t a heart attack and has noticed he has had less pain as a result. He has tried ice and Naprosyn and both helped. He has xrays to review. CNOV Observed: 08/06/2018 Status: COMPLETED Source: [place] 7:40 AM [facility] REPOSITORY Office Visit (PODIWS) MOSEH ZIMMERMAN ([id number]) 1955 M Date Time Provider Department 08/06/18 7:40 AM NAEL SHEPHERD PODIWS During your visit today, we recorded the following information about you: Mirlande Cotter RN 08/06/2018 12:12 PM Signed AMB ROOMING INTAKE FLOWSHEET DATA Risk Screening Do you have concerns about personal safety or safety in the home?: No Pain Pain Score: 4/10 (4-9/10) Pain Location: Foot-Right Description: Throbbing Duration Amount of Time: (several) Duration Units: Years Frequency: Continuous Intervention: Relaxation, Cold, Medication (ice, Naprosyn) New patient is here for R foot pain. Pain present for several years. Patient denies any injury to foot. He states he had clubfoot as a child and was casted to correct deformity. Pain is constant but varies with activity. He states he has been off of work since the middle of June/t a heart attack and has noticed he has had less pain as a result. He has tried ice and Naprosyn and both helped. He has xrays to review. Nael Shepherd DPM 08/06/2018 12:12 PM Signed Initial Podiatric Office Visit: Chief Complaint: This 63 year old male who presents with chief complaint:right foot pain HPI Patient presents to clinic for initial evaluation of right foot pain Patient has had pain to right lower extremity x 3 years He has history of clubfoot as a child and was casted for correction He had right foot pain many years ago and was casted x [address] Ernst Verde which did help Patient recently had heart attack and therefore, he has been off his foot and this has helped with his foot pain. PAIN EVALUATION 08/06/2018 Pain Score: 4 4-9/10 Pain Location: Foot-Right Description: Throbbing Duration Amount of Time: - several Duration Units: Years Frequency: Continuous Intervention: Relaxation;Cold;Medication ice, Naprosyn Hemoglobin A1C (%) Date Value 03/16/2018 5.7 PCP: Abel Pablo MD PAST MEDICAL HISTORY Diagnosis Date - Displacement of lumbar intervertebral disc without myelopathy - Encounter for Zostavax administration 05/20/2015 done at [place] - Raynaud's syndrome - Sciatica - Tobacco abuse - Urinary calculus, unspecified Renal stones--calcium oxalate Current Outpatient Prescriptions: aspirin, enteric coated (ASPIRIN, ENTERIC COATED) 81 mg EC tablet Take 81 mg by mouth once daily. atorvastatin (LIPITOR) 40 mg tablet AT BEDTIME BRILINTA 90 mg tablet Take 90 mg by mouth twice daily. carvedilol (COREG) 3.125 mg tablet TWICE A DAY Cholecalciferol, Vitamin D3, 1,000 unit cap Take 1 capsule by mouth once daily. Jcebxidevzo-Fjiaekafg-Uzf C-Mn (GLUCOSAMINE CHONDROITIN MAXSTR) 500-400 mg cap Take 1 capsule by mouth three times daily. HYDROcodone-acetaminophen (NORCO) 5-325 mg per tablet Take 2 tablets by mouth twice daily as needed for Pain for up to 30 days.Earliest Fill Date: 08/03/18 hydrOXYzine pamoate (VISTARIL) 25 mg capsule Take 1 capsule by mouth three times daily as needed. MULTIVITAMIN ORAL DAILY HYDROcodone-acetaminophen (NORCO) 5-325 mg per tablet Take 2 tablets by mouth twice daily as needed for Pain for up to 30 days.Earliest Fill Date: 03/06/18 HYDROcodone-acetaminophen (NORCO) 5-325 mg per tablet Take 2 tablets by mouth twice daily as needed for Pain for up to 30 days.Earliest Fill Date: 04/05/18 HYDROcodone-acetaminophen (NORCO) 5-325 mg per tablet Take 2 tablets by mouth twice daily as needed for Pain for up to 30 days.Earliest Fill Date: 06/04/18 HYDROcodone-acetaminophen (NORCO) 5-325 mg per tablet Take 2 tablets by mouth twice daily as needed for Pain for up to 30 days.Earliest Fill Date: 07/04/18 LORazepam (ATIVAN) 1 mg tablet DAILY NEEDED PRN For Anxiety/Insomnia naproxen (NAPROSYN) 500 mg tablet Take 1 tablet by mouth twice daily as needed (for pain/inflammation). Take with food. (Patient not taking: Reported on 08/06/2018 ) THERAPEUTIC MULTIVITAMIN TAB Take one(1) tablet daily. No current facility-administered medications for this visit. ALLERGIES Allergen Reactions - Lipitor [Atorvastat* muscle cramps - Lodine [Etodolac] depression - Wellbutrin [Bupropi* PAST SURGICAL HISTORY Procedure Laterality Date - COLONOSCOPY W/BX 05/27/10 colonic irritation - EGD W/O BRSH SPECIMEN W/BX 05/27/10 duodenal ulcer - PAST SURGICAL HISTORY OF club foot repair as child - PAST SURGICAL HISTORY OF 1998 discectomy, lumbar L5-S1 - PAST SURGICAL HISTORY OF wisdom teeth - REMOVAL OF KIDNEY STONE multiple - REVISE MEDIAN N/CARPAL TUNNEL SURG right Carpal tunnel decomp FAMILY HISTORY Problem Relation Age of Onset - None Unknown - Cancer Mother unknown primary - Coronary Artery Disease Father Social History Marital status: Spouse name: Jia Years of education: Number of children: Occupational History Occupation Employer Comment [employer] Social History Main Topics Smoking status: Former Smoker Packs/day: 2.00 Years: 40.00 Types: Cigarettes Quit date: 07/04/2018 Smokeless tobacco: Current User Alcohol use: No Drug use: No REVIEW OF SYSTEMS GENERAL: Negative for Malaise, significant weight loss, fever RESPIRATORY: Negative for cough, wheezing and shortness of breath CARDIOVASCULAR: Negative for chest pain, leg swelling and palpitations GI: Negative for abdominal discomfort, blood in stools or black stools and change in bowel habits : Negative for dysuria, frequency and incontinence MUSCULOSKELETAL: Positive for right foot pain. SKIN: Negative for lesions, rash, and itching. HEMATOLOGY/LYMPHOLOGY Negative for prolonged bleeding, bruising easily, and swollen nodes. ENDOCRINE: Negative for cold or heat intolerance, polyuria, polydipsia and goiter. NEURO: negative Physical Exam: Constitutional: Pt is a well developed 63 year old male who is alert, oriented and cooperative Eyes: Following during examination. No redness or drainage. Respiratory: RR normal and nonlabored. Even breathing. No evidence of distress or shortness of breath. Psychology: Patient is engaged during conversation. Normal affect and mood. Does not appear depressed or anxious during encounter. Vascular: Dorsalis pedis and posterior tibial pulses palpable as b/l Capillary Fill time < 5 seconds to digits 1-5 b/l Skin temperature warm to warm proximal to distal b/l Hair growth present to digits Neurological: intact light touch/epicritic sensation Vibratory sensation intact to hallux b/l intact protective sensation no significant neurological deficits Dermatological: Nails 1-5 b/l appear normal. Webspaces clean and dry 1-4 b/l. Skin appears well hydrated and supple. good color, texture, turgor. No open lesions present. No callosities present. Musculoskeletal/Orthopaedic: Patient has pain to palpation of right subtalar joint Foot type is pronated structurally AJ ROM is decreased with knee extended and flexed 1st MPJ is full when loaded and no pain or crepitus are noted with ROM. MTJ, STJ are full and free of pain and crepitus. +5/5 muscle strength dorsiflexion, plantarflexion, inversion, eversion b/l Radiographs: 3 views right foot reviewed August 06, 2018: I have personally reviewed and interpreted these XR myself: There is moderate arthritis of right hindfoot ASSESSMENT: (M19.079) Arthritis of foot (primary encounter diagnosis) (M79.671) Pain in right foot PLAN: 1. History and physical examination performed. 2. XR reviewed with patient and interpreted today 3. Discussed pain of right foot. He has been casted in past which was helpful for him but he needs to be active and for this reason, I am going to recommend nsaids prn and use of powerstep inserts. 4. He is to break the inserts in one hour/day and increase daily. 5. F/u in 1 month. If no improvement, consider injection. ANCELMO Eastman RN 08/06/2018 8:02 AM Signed Powerstep Original Full length. Can purchase at [employer] here in [place], [employer] in [place] or [place]. Also can find in [place] in [facility]. Powersteps can also be purchased online, starting around $25.00 If you have a metatarsal or dancer pad for your feet apply the pad directly to the insole so you can interchange between your shoes. Find a shoe with a removable insole and take this out and replace with your powerstep insole. Always bring powersteps with you when shopping for shoes so that you can make sure that everything fits well together Referring Provider: SELF [[id number]] Allergies As of Date: 08/06/2018 Noted Allergy Reaction LIPITOR (ATORVASTATIN CALCIUM) 06/07/2005 Comments: muscle cramps LODINE (ETODOLAC) 02/18/2008 Comments: depression WELLBUTRIN (BUPROPION HCL) 06/07/2005 Date Reviewed: 08/06/2018 Reviewed by: Mirlande Cotter RN - Fully Assessed Reason for Visit: New Patient [[id number]] Primary Visit Diagnosis:Arthritis of foot [M19.079] Other Visit Diagnosis:Pain in right foot [M79.671] Prescriptions as of 08/06/2018 Sig: ASPIRIN 81 MG TABLET,DELAYED * Take 81 mg by mouth once tristin* ATORVASTATIN 40 MG TABLET AT BEDTIME BRILINTA 90 MG TABLET Take 90 mg by mouth twice calvin* CARVEDILOL 3.125 MG TABLET TWICE A DAY CHOLECALCIFEROL (VITAMIN D3) * Take 1 capsule by mouth once * MARBIATNYQG-NUTJIXOAG-CCJ C-M* Take 1 capsule by mouth three* HYDROCODONE 5 MG-ACETAMINOPHE* Take 2 tablets by mouth twice* HYDROXYZINE PAMOATE 25 MG CAP* Take 1 capsule by mouth three* MULTIVITAMIN ORAL DAILY HYDROCODONE 5 MG-ACETAMINOPHE* Take 2 tablets by mouth twice* HYDROCODONE 5 MG-ACETAMINOPHE* Take 2 tablets by mouth twice* HYDROCODONE 5 MG-ACETAMINOPHE* Take 2 tablets by mouth twice* HYDROCODONE 5 MG-ACETAMINOPHE* Take 2 tablets by mouth twice* LORAZEPAM 1 MG TABLET DAILY NEEDED PRN For Anxie* NAPROXEN 500 MG TABLET Take 1 tablet by mouth twice * Patient not taking: Reported on 08/06/2018 THERAPEUTIC MULTIVITAMIN TABL* Take one(1) tablet daily. Problem List As Of Date 08/06/2018 Noted Resolved RAYNAUD'S SYNDROME [I73.00] Displacement of lumbar intervertebral disc with* More... SCIATICA [M54.30] URINARY CALCULUS NOS [N20.9] More... 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] INVALID FOR* TOBACCO USE DISORDER [F17.200] INVALID FOR* Tendonitis [M77.9] INVALID FOR* Hemorrhoids [K64.9] INVALID FOR* Blood in stool [K92.1] INVALID FOR* Duodenal ulcer due to Helicobacter pylori [K26.*INVALID FOR* Lumbar stenosis with neurogenic claudication [M*INVALID FOR* Meralgia paresthetica of left side [G57.12] INVALID FOR* ED (erectile dysfunction) [N52.9] INVALID FOR* Chronic low back pain [M54.5, G89.29] INVALID FOR* DDD (degenerative disc disease), lumbar [M51.36]INVALID FOR* Internal hemorrhoids without mention of complic*INVALID FOR* Pain in both hands [M79.641, M79.642] INVALID FOR* Class 1 obesity due to excess calories without *INVALID FOR* Other instructions from your clinician: Powerstep Original Full length. Can purchase at [employer] here in [place], [employer] in [place] or [place]. Also can find in [employer] in [facility]. Powersteps can also be purchased online, starting around $25.00 If you have a metatarsal or dancer pad for your feet apply the pad directly to the insole so you can interchange between your shoes. Find a shoe with a removable insole and take this out and replace with your powerstep insole. Always bring powersteps with you when shopping for shoes so that you can make sure that everything fits well together Disposition: Return in about 5 weeks (around 09/10/2018) for arthritis, R foot. Follow-up and Disposition History Recorded Encounter Status:Closed by NAEL SHEPHERD DPM on 08/06/18 12 LEAD ELECTROCARDIOGRAM Observed: 07/26/2018 Status: F Source: TAFT 3:[address] [facility] REPOSITORY [facility] Cardiovascular Services [facility] [address] 12 Lead EKG 07/24/18 0953 MR#: [id number] Acct: [id number] Name: MOSHE ZIMMERMAN Rep #: [id number] : 1955 63 From: Jose Elias MD Attending Dr: Sacha Atkins MD Status: DEP [facility] Ordering Dr: Sacha Atkins MD Date: 07/24/18 Location: [facility] Sex: M C Admitted: Test Reason : POST STENT Blood Pressure : / mmHG Vent. Rate : 052 BPM Atrial Rate : 052 BPM P-R Int : 158 ms QRS Dur : 096 ms QT Int : 460 ms P-R-T Axes : 055 -14 -27 degrees QTc Int : 427 ms Sinus bradycardia Inferior infarct (cited on or before 04-JUL-2018) Abnormal ECG When compared with ECG of 06-JUL-2018 06:04, No significant change was found Confirmed by BECCA PERALTA, JOSE ([id number]), graphics editor ALFREDO FARMER ([id number]) on 07/26/2018 3:17:15 PM Referred By: Sacha Atkins Confirmed By:JOSE ELIAS MD 07/26/18 151 Date Jose Elias MD CC: Sacha Atkins MD; Abel Pablo MD Signed DISCHARGE INSTRUCTION Observed: 07/25/2018 Status: F Source: TAFT 8:07 AM [facility] Medical Records Department [address] [place] [id number] Instructions for Home/Discharge Instructions 07/24/18 1640 MR#: [id number] Acct: [id number] Name: MOSHE ZIMMERMAN Rep #: [id number] : 1955 63 From: Bonilla Lew CONDENSER TUBE TENDERMikyC PCP: Abel Pablo MD Status: REG SD Discharge Diet: Low fat/ Low Cholesterol Discharge Activity: Return to Normal Activity May shower in (days): 1 May resume sexual activity in: 1-2 weeks Lifting Restrictions: Do not lift anything greater than 10 pounds for 3 days Call your doctor if your incision/area has: Continuous Slow Oozing, Sudden Increased Bleeding, Increased Pain/ Swelling, Increased Redness, Foul Smelling Discharge, Swelling at the incision site Call your doctor if you observe: Fever of 101 or Higher, Shortness of breath, Chest pain Remove Dressing in (days):: 1 Cleanse incision/area with: Soap AND Water Additional Instructions: You will keep your August 08 appointment at 11:[address] Atkins. You will continue with Aspirin and Brilinta therapy. You will remain on Brilinta for at least one year. If anyone asks you to stop this medication, please call the [place] [facility] office first at [phone] Allergies/Adverse Reactions: Allergies etodolac Allergy (Severe, Verified 07/15/18 18:54) Hives Medications to take at Discharge Hydrocodone/Acetaminophen [Hydrocodone-Acetamin 5-325 mg] 1 tab PO Q4H PRN PRN 07/04/18 Multivitamin [Multiple Vitamins] 1 tab PO DAILY 07/04/18 Lorazepam [Ativan] 1 mg PO DAILY PRN PRN #5 tab 07/06/18 aspirin 81 mg tablet,delayed release 81 mg PO DAILY@0800 #90 tab 07/16/18 atorvastatin 40 mg tablet 40 mg PO QHS #90 tab 07/16/18 carvedilol 3.125 mg tablet 3.125 mg PO BID #180 tab 07/16/18 hydroxyzine pamoate 25 mg capsule 25 mg PO TID-QID PRN 07/16/18 ticagrelor 90 mg tablet 90 mg PO BID #180 tab 07/16/18 Primary Care Physician: Abel Pablo MD [Primary Care Provider] - Test Results: Test results from this visit will be discussed in further detail at your follow-up appointment, if applicable. Please Follow Up With: Dr. Atkins When: 08/08/2018 at 11:30 Proposed Discharge Date: 07/25/18 Cardiac Rehabilitation Info Cardiac Rehabilitation Program Information: Cardiac Rehabilitation is important for patients like you who are recovering from a heart problem. Cardiac rehabilitation programs are recognized as integral to the continued care of the patient with coronary heart disease. The cardiac rehabilitation program is designed to optimize a patient's physical, psychological, and social functioning. Health lpn care manager work in cardiac rehabilitation programs and assist you with getting the treatments you need to get stronger and healthier - like exercise, healthy eating habits, and medications. Cardiac rehabilitation has been show to help people with heart problems live longer and have better life enjoyment than people who do not go to cardiac rehabilitation. Please contact the Cardiac Rehabilitation Program at [facility] at in two weeks if you have not heard from them. 07/25/18 0807 <Electronically signed by Bonilla Lew CONDENSER TUBE TENDERMikyC> Date Bonilla Lew CONDENSER TUBE TENDER-C CC: Abel Pablo MD CBC-COMPLETE BLOOD CNT Collected: 07/25/2018 Status: F Source: [place] NO DIFF 4:[address] [facility] REPOSITORY TYPE CODE TESTS RESULT OUT OF RANGE REFERENCE UNITS LAB L100.1000 4.4-11.0 K/mm3 Normal WBC 5.5 LAB L100.1200 4.6-6.2 M/mm3 Low RBC 4.16 LAB L100.1300 13.0-16.5 g/dl Low HGB 12.8 LAB L100.1400 40-54 % Low HCT 36.8 LAB L100.1500 80-94 fL Normal MCV 88.5 LAB L100.1600 27.0-32.0 pg Normal MCH 30.8 LAB L100.1700 32-36 g/gl Normal MCHC 34.8 LAB L100.1810 11.6-14.6 % Normal RDW CV 12.4 LAB L100.1820 35.1-43.9 fl Normal RDW SD 39.5 LAB L100.1900 150-450 K/mm3 Normal PLT 243 LAB L100.2000 6.2-12.0 fl Normal MPV 9.9 Performed By: #### L100.0500 #### [facility] [address] [place], [place], [address] BASIC METABOLIC Collected: 07/25/2018 Status: F Source: [place] PROFILE (BMP) 4:[address] [facility] REPOSITORY TYPE CODE TESTS RESULT OUT OF RANGE REFERENCE UNITS LAB L501.0100 74-106 mg/dL High GLU 107 Result Comment: Fasting Glucose result from 100 to 125 mg/dL suggests IMPAIRED HOMEOSTASIS per A.D.A. criteria. Please note revised GLUCOSE reference range effective 2017. LAB L501.1000 7-18 mg/dL Normal BUN 15 LAB L501.1100 0.70-1.30 mg/dL Normal CREAT,SERUM 0.72 Result Comment: The validity of the calculated GFR AND GFRAA in patients over 70 years has not been determined. Clinical correlation is essential. LAB L501.1110 >60 mL/min Normal EST GFR 117 Result Comment: Non- GFR Calc LAB L501.1115 >60 mL/min Normal EST GFR - AA 141 Result Comment: GFR Calc LAB L501.1255 ml/min Normal Estimated CRCL 114.75 LAB L501.1300 10-20 RATIO High BUN/CRE 20.7 LAB L501.2200 8.5-10 mg/dL .1 CA Normal 8.5 LAB L501.5300 136-14 mmol/L 5 NA Normal 141 LAB L501.5600 3.5-5. mmol/L 1 K Normal 4.2 LAB L501.5900 98-107 mmol/L CL Normal 106 LAB L501.6100 21.0-3 mmol/L 2.0 CO2 Normal 27.0 LAB L501.6200 5-15 GAP Normal 8 Performed By: #### L500.2500 #### [facility] [address] [place], [address] ACT ACTIVATED CLOTTING Collected: 07/24/2018 Status: F Source: TAFT TIME 9:[address] [facility] REPOSITORY TYPE CODE TESTS RESULT OUT OF RANGE REFERENCE UNITS LAB L9100.0100 74-137 sec High ACTk CLOT 180 TIME Performed By: #### L9100.0100 #### [facility] Laboratory Point of Care [address] [place] [address] 12 LEAD ELECTROCARDIOGRAM Observed: 07/19/2018 Status: F Source: TAFT 9:[address] [facility] REPOSITORY [facility] Cardiovascular Services [address] [place] [address] 12 Lead EKG 07/05/18 0501 MR#: [id number] Acct: [id number] Name: MOSHE ZIMMERMAN Rep #: [id number] : 1955 63 From: Jose Elias MD Attending Dr: Marlene Mills Status: DIS IN Ordering Dr: Bertha Bedoya MD Date: 07/05/18 Location: [facility] Sex: M C Admitted: 07/04/18 Test Reason : AM EKG Blood Pressure : / mmHG Vent. Rate : 064 BPM Atrial Rate : 064 BPM P-R Int : 142 ms QRS Dur : 090 ms QT Int : 426 ms P-R-T Axes : 053 -20 -37 degrees QTc Int : 439 ms Normal sinus rhythm Inferior infarct , age undetermined Abnormal ECG When compared with ECG of 04-JUL-2018 07:12, MANUAL COMPARISON REQUIRED, DATA IS UNCONFIRMED Confirmed by BECCA PERALTA, JOSE ([id number]), graphics editor ALFREDO FARMER ([id number]) on 07/12/2018 2:09:04 PM Referred By: Sacha Atkins Confirmed By:JOSE ELIAS MD 07/12/18 1409 Date Jose Elias MD CC: Bertha Bedoya MD; Sacha Atkins MD; Marlene Mills; Abel Pablo MD Signed 12 LEAD ELECTROCARDIOGRAM Observed: 07/19/2018 Status: F Source: [place] 9:[address] [facility] REPOSITORY [facility] Cardiovascular Services [address] [place] [address] 12 Lead EKG 07/04/18 0712 MR#: [id number] Acct: [id number] Name: ELSIEMOSHE Eleuterio Rep #: [id number] : 1955 63 From: Jose Elias MD Attending Dr: Marlene Mills Status: DIS IN Ordering Dr: Bertha Bedoya MD Date: 07/04/18 Location: U Sex: M C Admitted: 07/04/18 Test Reason : POST CATH Blood Pressure : / mmHG Vent. Rate : 059 BPM Atrial Rate : 059 BPM P-R Int : 164 ms QRS Dur : 092 ms QT Int : 434 ms P-R-T Axes : 052 -12 032 degrees QTc Int : 429 ms Sinus bradycardia Inferior infarct , age undetermined Abnormal ECG When compared with ECG of 04-JUL-2018 04:21, MANUAL COMPARISON REQUIRED, DATA IS UNCONFIRMED Confirmed by JOSE ELIAS MD ([id number]), ALFREDO Valentine ([id number]) on 07/12/2018 2:10:00 PM Referred By: Sacha Atkins Confirmed By:JOSE ELIAS MD 07/12/18 1410 Date Jose Elias MD CC: Bertha Bedoya MD; Sacha Atkins MD; Marlene Mills; Abel Pablo MD Signed 12 LEAD ELECTROCARDIOGRAM Observed: 07/19/2018 Status: F Source: TAFT 9:[address] [facility] REPOSITORY [facility] Cardiovascular Services [address] [place] [address] 12 Lead EKG 07/06/18 0604 MR#: [id number] Acct: [id number] Name: MOSHE ZIMMERMAN Rep #: [id number] : 1955 63 From: Jose Elias MD Attending Dr: Marlene Mills Status: DIS IN Ordering Dr: Bertha Bedoya MD Date: 07/06/18 Location: [facility] Sex: M C Admitted: 07/04/18 Test Reason : AM EKG Blood Pressure : / mmHG Vent. Rate : 058 BPM Atrial Rate : 058 BPM P-R Int : 144 ms QRS Dur : 092 ms QT Int : 462 ms P-R-T Axes : 047 -14 -44 degrees QTc Int : 453 ms Sinus bradycardia Inferior infarct , age undetermined Abnormal ECG When compared with ECG of 05-JUL-2018 05:01, MANUAL COMPARISON REQUIRED, DATA IS UNCONFIRMED Confirmed by JOSE ELIAS MD ([id number]), ALFREDO Valentine ([id number]) on 07/12/2018 2:00:45 PM Referred By: Sacha Atkins Confirmed By:JOSE ELIAS MD 07/12/18 1400 Date Jose Elias MD CC: Bertha Bedoya MD; Sacha Atkins MD; Marlene Mills; Abel Pablo MD Signed 12 LEAD ELECTROCARDIOGRAM Observed: 07/19/2018 Status: F Source: [place] 9:[address] [facility] REPOSITORY [facility] Cardiovascular Services [address] [place] [address] 12 Lead EKG 07/04/18 0421 MR#: [id number] Acct: [id number] Name: MOSHE ZIMMERMAN Rep #: [id number] : 1955 63 From: Jose Elias MD Attending Dr: Marlene Mills Status: DIS IN Ordering Dr: Laurent Long MD Date: 07/04/18 Location: [facility] Sex: M C Admitted: 07/04/18 Test Reason : CP Blood Pressure : / mmHG Vent. Rate : 075 BPM Atrial Rate : 075 BPM P-R Int : 160 ms QRS Dur : 094 ms QT Int : 380 ms P-R-T Axes : 047 -03 104 degrees QTc Int : 424 ms Normal sinus rhythm Inferior infarct , acute T wave abnormality, consider lateral ischemia ACUTE OR / STEMI Consider right ventricular involvement in acute inferior infarct Abnormal ECG Confirmed by BECCA PERALTA, JOSE ([id number]), graphics editor ALFREDO FARMER ([id number]) on 07/05/2018 3:45:44 PM Referred By: Sacha Atkins Confirmed By:JOSE ELIAS MD 07/05/18 1545 Date Jose Elias MD CC: Sacha Atkins MD; Marlene Mills; Abel Pablo MD; Laurent Long MD Signed CARDIOLOGY VISIT Observed: 07/16/2018 Status: F Source: [place] REPORT 11:[address] [facility] REPOSITORY [facility] [address] [place] [address] OFFICE VISIT Date of Service: 07/16/18 MR#: [id number] Acct: [id number] Name: MOSHE ZIMMERMAN Rep #: [id number] : 1955 Provider: Sacha Atkins MD Age/Sex: 63/M Location: [facility] Status: Signed HPI HPI Chief Complaint: chest pain Details: MOSHE ZIMMERMAN, is a 63 nondiabetic M with hypertension, hypercholesterolemia, former smoker of approximately 48 pack years and quit in May 2018, who presents to the office today for follow-up of acute inferior wall myocardial infarction. On 07/04/18 the patient woke up at 3 AM with sudden onset chest pain radiating to his left arm. STEMI alert was called and patient underwent emergent catheterization and angioplasty and stenting x2 to the mid right coronary artery receiving a Cardinal Elunir DENNIS RX 3.0x28 as well as a Cardinal Elunir DENNIS RX 3.0x15, postdilated with a 3.0 noncompliant balloon. Subsequent echocardiogram dated 07/04/18 showed an EF around 50%, with mild inferior posterior hypokinesis and normal RVSP In addition the patient was found to have significant mid LAD stenosis which will require elective intervention in the near future, and possible FloWire evaluation of the left circumflex. Discharge, the patient denies any chest pain, angina, shortness of breath or dyspnea on exertion. 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 He does use glass gloves when he is working but occasionally gets cuts. He is taking and tolerating his medicines well. He did have some minor indigestion which was relieved with Maalox and discontinuation of NSAIDs. In addition, the patient has a history of Raynaud's disease with vasoconstriction of the vessels in his hand Our office today's blood pressure is 122/60, pulse is 64 and regular. Physical exam is as below. His right radial area is clean/dry/intact with excellent 2+ pulses. His lipids as of 07/05/18 show an LDL of 71 and HDL of 43. 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 Tower Required: No Accompanied by: Ex Is patient in pain?: No Allergies etodolac Allergy (Severe, Verified 07/15/18 18:54) Hives Medications Hydrocodone/Acetaminophen [Hydrocodone-Acetamin 5-325 mg] 1 tab PO Q4H PRN PRN 07/04/18 [History Confirmed 07/15/18] Multivitamin [Multiple Vitamins] 1 tab PO DAILY 07/04/18 [History Confirmed 07/15/18] Lorazepam [Ativan] 1 mg PO DAILY PRN PRN #5 tab 07/06/18 [Rx Confirmed 07/15/18] aspirin 81 mg tablet,delayed release 81 mg PO DAILY@0800 #90 tab 07/16/18 [Rx Confirmed 07/16/18] atorvastatin 40 mg tablet 40 mg PO QHS #90 tab 07/16/18 [Rx Confirmed 07/16/18] carvedilol 3.125 mg tablet 3.125 mg PO BID #180 tab 07/16/18 [Rx Confirmed 07/16/18] hydroxyzine pamoate 25 mg capsule 25 mg PO TID-QID PRN 07/16/18 [History Confirmed 07/16/18] ticagrelor 90 mg tablet 90 mg PO BID #180 tab 07/16/18 [Rx Confirmed 07/16/18] PFSH Medical History Nicotine dependence (Chronic) Hyperlipidemia (Chronic) Essential (primary) hypertension (Chronic) Atherosclerosis of coronary artery of [place] heart without angina pectoris (Acute) Acute inferior myocardial infarction (Acute 07/04/18) STEMI (ST elevation myocardial infarction) (Acute) Surgical History H/O right coronary artery stent placement (Resolved 07/04/18) H/O hemorrhoidectomy (Resolved) History of back surgery (Resolved) Family History Father Heart disease Mother Cancer Social History Smoking Status: Former smoker quit date: 07/04/18 ROS Const Const: Positive for other (Feels well but having a lot of indigestion: held Naprosyn for foot,improved); negative for fatigue, weakness, body ache, fever(s), headache(s), chills, frequent falls, night sweats, daytime sleepiness, difficulty sleeping, excessive sweating, weight gain, weight loss, increased appetite, poor appetite or anorexia Eyes Eyes: Negative for blind spots, loss of peripheral vision, transient loss of vision, blurry vision, change in vision, double vision, floaters, tunnel vision or other ENT ENT: Negative for dizziness, hearing loss, tinnitus, Nosebleed/epistaxis, balance problems, post nasal drip, lip swelling, tongue swelling, bleeding gums, hoarseness, neck pain, dry mouth, other or headache(s) Cardio Chest Pain: No Palpitations: No Edema: None Muscle aches with walking: None Resp Respiratory: Positive for SOB at rest; negative for SOB with activity, SOB orthopnea\SOB lying down, Cough, Coughing up blood/hemoptysis, chest congestion, pain on inspiration, snoring, stridor, wheezing, crackles, paroxysmal nocturnal dyspnea or other GI GI: Negative nausea, vomiting, heartburn, constipation, belching, bloating, cramping, vomiting blood/hematemesis, bright, red blood in stools, black,tarry stools, loose stools, Difficulty Swallowing or other : Negative for hematuria, frequent nighttime urination/ nocturia, erectile dysfunction or abnormal vaginal bleeding Musc Musc: Negative for balance problems, muscle aches/ myalgia, muscle weakness or joint pain Skin Skin: Negative redness, non-healing lesions, rash, unusual bruising, skin ulcer, wounds, jaundice or other Neuro Neuro: Negative for blurry vision, double vision, dizziness, lightheadedness, near syncope, syncope, orthostatic symptoms, confusion, memory loss, restless legs, vertigo, seizures, lack of coordination, other, weakness, headache(s) or frequent falls Nicanor Hematologic/Lymphatic: Negative for easy bleeding, easy bruising, enlarged lymph nodes or other Endo Endo: Negative for cold intolerance, heat intolerance, flushing, increased thirst/drinking, increased hunger, hair loss, hair growth, other, fatigue or excessive sweating Psych Psych: Negative for anxiety, depression, thoughts of harming anyone, thoughts of harming yourself, visual hallucinations, panic attacks or audible hallucinations Allergy Allergy/Immunology: Negative for lip swelling, Negative for tongue swelling, Negative for rash, Negative for throat swelling, Negative for hives Cardiology Exam Const Appearance: cooperative, healthy appearing and no acute distress Nutritional Appearance: well nourished Orientation: alert, oriented x3 and oriented to person Head Head: normal to inspection, atraumatic and normocephalic Nose: external nose normal Face and Sinus: face symmetric Mouth: oral mucosae normal Eyes General: appearance normal, both eyes and all related structures Eyelids: eyelids normal Conjunctivae: conjunctivae normal Pupils: PERRL and normal by confrontation EOM: EOM intact bilaterally Neck Neck: normal visual inspection and full ROM Carotids: normal carotid upstroke Chest Chest inspection: normal inspection of the chest Auscultation: Bilateral: Clear to Auscultation Cardio Palpation: normal PMI Rate: regular rate Rhythm: regular rhythm Heart sounds: S1 normal and S2 normal GI GI: normal to inspection, no hepatosplenomegaly and bowel sounds present Neuro General: alert, oriented x3, awake, CN's II-XI intact bilaterally and moves all extremities Skin Skin: no rashes or lesions noted Extremities Pulses: Normal: Right Femoral Pulse, Left Femoral Pulse, Right Dorsalis Pedis Pulse, Left Dorsalis Pedis Pulse, Right Posterior Tibial Pulse, Left Posterior Tibial Pulse, Right Radial Pulse, Left Radial Pulse Lower Extremity Edema: None: Bilateral Psych Psychological: normal affect Assessment AND Plan 1. Atherosclerosis of coronary artery of tan[place] heart without angina pectoris I25.10 UBO-FRM-Hyjp-Mid RCA w/ 3.0 x 28 mm and 3.0 x 15 mm Elunir Stent and DENNIS-Distal RCA w/ 2.5 x 28 mm Elunir 07/04/18 Plan 1. Coronary artery disease: The patient is status post acute inferior wall myocardial infarction with emergent angioplasty and drug-eluting stenting x2 to the right coronary artery with remaining disease in his mid LAD and possible significant disease in his mid circumflex. After much discussion, the patient and his ex- Jia Mims, who works here as a nuclear operations specialist, I have decided to proceed with intervention with me. Patient will be arranged for intervention on 07/24/18. Our hope is that we can provide a minx closure device so the patient does not have to lay flat too long given his back pain. In addition given the patient's Raynaud's disease that may be somewhat problematic doing radial approach as well although he did appear to tolerate it for his STEMI without difficulty. In the meantime he will continue his baby aspirin, Brilinta, Coreg. Once he has completed his intervention he will be set up for cardiac rehab and may return to work 1 week after his procedure to allow his groin to heal. 2. Hyperlipidemia E78.5 Plan 2. Hyperlipidemia: His LDL and HDL cholesterol are fairly well-controlled when he presented however he most likely requires additional LDL reduction. Continue Lipitor therapy. Repeat lipid profile in 6 weeks time. 3. Return office in 6-months. This note was generated using a voice recognition system and there may be incorrect words, spelling or punctuation that were not noted when reviewing the office note prior to saving. Plan Detail Other Medications New: Refilled: Discontinued: Follow Up +6M (Sanket) Coding Level of Care Code Off vis,est,level 3 Diagnoses Atherosclerosis of coronary artery of tanac[place] heart without angina pectoris I25.10 Hyperlipidemia E78.5 Coding Level of Care Code Off vis,est,level 3 Diagnoses Atherosclerosis of coronary artery of [place] heart without angina pectoris I25.10 Hyperlipidemia E78.5 07/16/18 1130 <Electronically signed by Sacha Atkins MD> Date Sacha Atkins MD [facility] Signature: Date (if applicable) CC: Abel Pablo MD PROGRESS Observed: 07/08/2018 Status: COMPLETED Source: [place] 12:50 PM [facility] [place] REPOSITORY O ID: [id number] Author: Alana Armas Service: (none) Author Type: Nurse Practitioner Type: Progress Notes Filed: 07/08/2018 2:15 PM Note Text: 07/08/2018 Patient presents with: Hospital F/U SUBJECTIVE: This is a 63 year old that is here today for Hospital Discharge Follow up. He was seen in [facility] ER 07/04/18 and kept overnight until 07/05/18. He was awoken with CP at about 0300 and he initially thought that it was indigestion because he went to bed almost immediately after eating that night, took tums with no improvement, then pain radiated down his left arm, then jaw pain and diaphoresis started, so he drove himself to the ER. He was found to have a STEMI on EKG and sent immediately to label paster. Per pt he had a 100% blockage that was stented with 3 stents and he is planning to return 07/29 for more stents to a 75% blockage to the maker. He is scheduled this month with Dr. Atkins from cardiology. He is tolerating his new medications including the change from Crestor back to Lipitor. He states that this scared him enough that he can tolerate the muscle aches that he has previously on it. He has also not has a cigarette since he left, he is wearing patches. He is confident that he will be able to quit. He states that it was something that he liked to do before and he can give it up if it means his life is at risk. His father had his first OR at 41 and from one at age 43. He denies any CP or SOB. Per [facility] ER records, he did have a STEMI with elevated troponin and reports of prolonged QT. Stents placed mid, proximal, and distal RCA. He was started on Brilinta (at least 12 months) , lipitor 40mg and ASA for life. Heart size was borderline on CXR. Echo showed EF 50-55%, stage 1 diastolic dysfunction, mildly dilated right ventricle, 1+ tricuspid valve insufficiency. He was given Ativan to help deal with the anxiety that this situation has caused. He is asking for a refill. Discussed potential risks related to using this and White Bird. He agrees to try a nonbenzo medication for the anxiety. PAST MEDICAL HISTORY Diagnosis Date - Displacement of lumbar intervertebral disc without myelopathy - Encounter for Zostavax administration 05/20/2015 done at [facility] - Raynaud's syndrome - Sciatica - Tobacco abuse - Urinary calculus, unspecified Renal stones--calcium oxalate ALLERGIES Lipitor [Atorvastatin Calcium]; Lodine [Etodolac]; Wellbutrin [Bupropion Hcl] MEDICATIONS Current Outpatient Prescriptions: aspirin, enteric coated (ASPIRIN, ENTERIC COATED) 81 mg EC tablet Take 81 mg by mouth once daily. atorvastatin (LIPITOR) 40 mg tablet AT BEDTIME carvedilol (COREG) 3.125 mg tablet TWICE A DAY LORazepam (ATIVAN) 1 mg tablet DAILY NEEDED PRN For Anxiety/Insomnia BRILINTA 90 mg tablet Take 90 mg by mouth twice daily. MULTIVITAMIN ORAL DAILY naproxen (NAPROSYN) 500 mg tablet Take 1 tablet by mouth twice daily as needed (for pain/inflammation). Take with food. Cholecalciferol, Vitamin D3, 1,000 unit cap Take 1 capsule by mouth once daily. THERAPEUTIC MULTIVITAMIN TAB Take one(1) tablet daily. hydrOXYzine pamoate (VISTARIL) 25 mg capsule Take 1 capsule by mouth three times daily as needed. HYDROcodone-acetaminophen (NORCO) 5-325 mg per tablet Take 2 tablets by mouth twice daily as needed for Pain for up to 30 days.Earliest Fill Date: 06/04/18 HYDROcodone-acetaminophen (NORCO) 5-325 mg per tablet Take 2 tablets by mouth twice daily as needed for Pain for up to 30 days.Earliest Fill Date: 07/04/18 [START ON 08/03/2018] HYDROcodone-acetaminophen (NORCO) 5- 325 mg per tablet Take 2 tablets by mouth twice daily as needed for Pain for up to 30 days.Earliest Fill Date: 08/03/18 HYDROcodone-acetaminophen (NORCO) 5-325 mg per tablet Take 2 tablets by mouth twice daily as needed for Pain for up to 30 days.Earliest Fill Date: 03/06/18 HYDROcodone-acetaminophen (NORCO) 5-325 mg per tablet Take 2 tablets by mouth twice daily as needed for Pain for up to 30 days.Earliest Fill Date: 04/05/18 Xkavopwbrae-Mmzstpkwg-Prf C-Mn (GLUCOSAMINE CHONDROITIN MAXSTR) 500-400 mg cap Take 1 capsule by mouth three times daily. No current facility-administered medications for this visit. Medications and allergies reviewed by this provider. SOCIAL HISTORY Social History Marital status: Spouse name: Jia Years of education: Number of children: Occupational History Occupation Employer Comment [employer] Social History Main Topics Smoking status: Current Every Day Smoker Packs/day: 2.00 Years: 40.00 Types: Cigarettes Smokeless tobacco: Current User Alcohol use: No Drug use: No REVIEW OF SYSTEMS GENERAL: No weight loss, malaise or fevers RESPIRATORY: Negative for cough, hemoptysis, wheezing, COPD, dyspnea or shortness of breath CARDIOVASCULAR: Negative for chest pain, leg swelling, hypertension, CHF or palpitations GI: No nausea, vomiting, or diarrhea OBJECTIVE: BP 138/82 Pulse (!) 55 Resp 20 Wt 100.7 kg (222 lb) SpO2 98% BMI 31.40 kg/m? . Vital signs reviewed by this provider. PHYSICAL EXAMINATION: General appearance: Well appearing, alert, in no acute distress, well-hydrated, well nourished. Skin: Skin color, texture, turgor normal, no suspicious rashes or lesions Lungs: lungs clear to auscultation. No wheezing, rhonchi, rales Heart: RRR without murmur, gallop, or rubs. No ectopy, No carotid bruits Extremities: No deformities, edema, skin discoloration, clubbing or cyanosis. Good capillary refill. , Pulses: 2+ ASSESSMENT/PLAN: 1. Hospital discharge follow-up - ICD9: V67.59, ICD10: Z09 (primary diagnosis) - continue with new medications. - follow up with cardiology and interventional cardiology as planned - ER if experiencing any CP or concerning symptoms 2. ST elevation myocardial infarction (STEMI), unspecified artery (HCC) - ICD9: 410.90, ICD10: I21.3 - see above 3. Anxiety - ICD9: 300.00, ICD10: F41.9 - discussed and encouraged nonpharmacologic measures - offered counseling- declines at this time - discussed new medication and how to take including potential SE - education provided on potential risks of opoid and benzo combination - HYDROXYZINE PAMOATE 25 MG CAPSULE Alana Armas APRN.CNP CNOV Observed: 07/08/2018 Status: COMPLETED Source: [place] 8:20 AM [facility] REPOSITORY Office Visit (FAMPWS) MOSHE ZIMMERMAN ([id number]) 1955 M Date Time Provider Department 07/08/18 8:20 AM ALANA ARMAS) FAMPWS During your visit today, we recorded the following information about you: Pulse Respiration Blood pressure Weight 55/minute 20/minute 138/82 100.7 kg Alana Armas APRN.RECORD SYSTEMS ANALYST 07/08/2018 2:15 PM Signed Transitional Care Management Progress Note The patients TCM visit was performed within the 7 days of discharge. TCM Eligibility Documentation The following information was gathered during the initial Patient Outreach Encounter. If no data exists please enter it manually. If data exists please delete date of discharge and date of initial contact seen below. Patient's Date of discharge: 07/06/18 Date of initial coordinator contact after discharge: 07/06/18 patient called in to schedule Discharge diagnosis: Chest Pain Medication review completed Yes Alisha Eubanks MA Provider Documentation: In follow-up of hospitalization, Moshe Zimmerman is a 63 year old male with the chief complaint of Chest Pain I have reviewed the patient?s last hospital course including diagnostic testing performed during this hospitalization, their discharge medications, and my assessment and plan with the patient and any family members present at today?s visit. 1. I have reviewed the patient record including associated test results during the last hospitalization Yes 2. I have reviewed Lab test Yes 3. I have reviewed Radiology test Yes 4. I reviewed assessment/plan with the patient/family member Yes July 08, 2018 8:14 AM Alana Armas APRN.RECORD SYSTEMS ANALYST 07/08/2018 2:15 PM Signed 07/08/2018 Patient presents with: Hospital F/U SUBJECTIVE: This is a 63 year old that is here today for Hospital Discharge Follow up. He was seen in [facility] ER 07/04/18 and kept overnight until 07/05/18. He was awoken with CP at about 0300 and he initially thought that it was indigestion because he went to bed almost immediately after eating that night, took tums with no improvement, then pain radiated down his left arm, then jaw pain and diaphoresis started, so he drove himself to the ER. He was found to have a STEMI on EKG and sent immediately to label paster. Per pt he had a 100% blockage that was stented with 3 stents and he is planning to return 07/29 for more stents to a 75% blockage to the maker. He is scheduled this month with Dr. Atkins from cardiology. He is tolerating his new medications including the change from Crestor back to Lipitor. He states that this scared him enough that he can tolerate the muscle aches that he has previously on it. He has also not has a cigarette since he left, he is wearing patches. He is confident that he will be able to quit. He states that it was something that he liked to do before and he can give it up if it means his life is at risk. His father had his first OR at 39 and from one at age 41. He denies any CP or SOB. Per [facility] ER records, he did have a STEMI with elevated troponin and reports of prolonged QT. Stents placed mid, proximal, and distal RCA. He was started on Brilinta (at least 12 months) , lipitor 40mg and ASA for life. Heart size was borderline on CXR. Echo showed EF 50-55%, stage 1 diastolic dysfunction, mildly dilated right ventricle, 1+ tricuspid valve insufficiency. He was given Ativan to help deal with the anxiety that this situation has caused. He is asking for a refill. Discussed potential risks related to using this and White Bird. He agrees to try a nonbenzo medication for the anxiety. PAST MEDICAL HISTORY Diagnosis Date - Displacement of lumbar intervertebral disc without myelopathy - Encounter for Zostavax administration 05/20/2015 done at [facility] - Raynaud's syndrome - Sciatica - Tobacco abuse - Urinary calculus, unspecified Renal stones--calcium oxalate ALLERGIES Lipitor [Atorvastatin Calcium]; Lodine [Etodolac]; Wellbutrin [Bupropion Hcl] MEDICATIONS Current Outpatient Prescriptions: aspirin, enteric coated (ASPIRIN, ENTERIC COATED) 81 mg EC tablet Take 81 mg by mouth once daily. atorvastatin (LIPITOR) 40 mg tablet AT BEDTIME carvedilol (COREG) 3.125 mg tablet TWICE A DAY LORazepam (ATIVAN) 1 mg tablet DAILY NEEDED PRN For Anxiety/Insomnia BRILINTA 90 mg tablet Take 90 mg by mouth twice daily. MULTIVITAMIN ORAL DAILY naproxen (NAPROSYN) 500 mg tablet Take 1 tablet by mouth twice daily as needed (for pain/inflammation). Take with food. Cholecalciferol, Vitamin D3, 1,000 unit cap Take 1 capsule by mouth once daily. THERAPEUTIC MULTIVITAMIN TAB Take one(1) tablet daily. hydrOXYzine pamoate (VISTARIL) 25 mg capsule Take 1 capsule by mouth three times daily as needed. HYDROcodone-acetaminophen (NORCO) 5-325 mg per tablet Take 2 tablets by mouth twice daily as needed for Pain for up to 30 days.Earliest Fill Date: 06/04/18 HYDROcodone-acetaminophen (NORCO) 5-325 mg per tablet Take 2 tablets by mouth twice daily as needed for Pain for up to 30 days.Earliest Fill Date: 07/04/18 [START ON 08/03/2018] HYDROcodone-acetaminophen (NORCO) 5- 325 mg per tablet Take 2 tablets by mouth twice daily as needed for Pain for up to 30 days.Earliest Fill Date: 08/03/18 HYDROcodone-acetaminophen (NORCO) 5-325 mg per tablet Take 2 tablets by mouth twice daily as needed for Pain for up to 30 days.Earliest Fill Date: 03/06/18 HYDROcodone-acetaminophen (NORCO) 5-325 mg per tablet Take 2 tablets by mouth twice daily as needed for Pain for up to 30 days.Earliest Fill Date: 04/05/18 Fucandxjgmo-Xcfbedazq-Mib C-Mn (GLUCOSAMINE CHONDROITIN MAXSTR) 500-400 mg cap Take 1 capsule by mouth three times daily. No current facility-administered medications for this visit. Medications and allergies reviewed by this provider. SOCIAL HISTORY Social History Marital status: Spouse name: Jia Years of education: Number of children: Occupational History Occupation Employer Comment [employer] Social History Main Topics Smoking status: Current Every Day Smoker Packs/day: 2.00 Years: 40.00 Types: Cigarettes Smokeless tobacco: Current User Alcohol use: No Drug use: No REVIEW OF SYSTEMS GENERAL: No weight loss, malaise or fevers RESPIRATORY: Negative for cough, hemoptysis, wheezing, COPD, dyspnea or shortness of breath CARDIOVASCULAR: Negative for chest pain, leg swelling, hypertension, CHF or palpitations GI: No nausea, vomiting, or diarrhea OBJECTIVE: BP 138/82 Pulse (!) 55 Resp 20 Wt 100.7 kg (222 lb) SpO2 98% BMI 31.40 kg/m? . Vital signs reviewed by this provider. PHYSICAL EXAMINATION: General appearance: Well appearing, alert, in no acute distress, well-hydrated, well nourished. Skin: Skin color, texture, turgor normal, no suspicious rashes or lesions Lungs: lungs clear to auscultation. No wheezing, rhonchi, rales Heart: RRR without murmur, gallop, or rubs. No ectopy, No carotid bruits Extremities: No deformities, edema, skin discoloration, clubbing or cyanosis. Good capillary refill. , Pulses: 2+ ASSESSMENT/PLAN: 1. Hospital discharge follow-up - ICD9: V67.59, ICD10: Z09 (primary diagnosis) - continue with new medications. - follow up with cardiology and interventional cardiology as planned - ER if experiencing any CP or concerning symptoms 2. ST elevation myocardial infarction (STEMI), unspecified artery (HCC) - ICD9: 410.90, ICD10: I21.3 - see above 3. Anxiety - ICD9: 300.00, ICD10: F41.9 - discussed and encouraged nonpharmacologic measures - offered counseling- declines at this time - discussed new medication and how to take including potential SE - education provided on potential risks of opoid and benzo combination - HYDROXYZINE PAMOATE 25 MG CAPSULE Alana Armas APRN.RECORD SYSTEMS ANALYST Referring Provider: SELF [200] Allergies As of Date: 07/08/2018 Noted Allergy Reaction LIPITOR (ATORVASTATIN CALCIUM) 06/07/2005 Comments: muscle cramps LODINE (ETODOLAC) 02/18/2008 Comments: depression WELLBUTRIN (BUPROPION HCL) 06/07/2005 Date Reviewed: 07/08/2018 Reviewed by: Alisha Mobley) MARISSA Eubanks - Fully Assessed Reason for Visit: Hospital F/U [57] Primary Visit Diagnosis:Hospital discharge follow-up [Z09] Other Visit Diagnoses:ST elevation myocardial infarction (STEMI), unspecified artery (HCC) [I21.3] Anxiety [F41.9] Order(s):hydrOXYzine pamoate (VISTARIL) 25 mg capsuleTake 1 capsule by mouth three times daily as needed.Disp: 90 capsuleRfl: 1 Prescriptions as of 07/08/2018 Sig: ASPIRIN 81 MG TABLET,DELAYED * Take 81 mg by mouth once tristin* ATORVASTATIN 40 MG TABLET AT BEDTIME CARVEDILOL 3.125 MG TABLET TWICE A DAY LORAZEPAM 1 MG TABLET DAILY NEEDED PRN For Anxie* BRILINTA 90 MG TABLET Take 90 mg by mouth twice calvin* MULTIVITAMIN ORAL DAILY NAPROXEN 500 MG TABLET Take 1 tablet by mouth twice * CHOLECALCIFEROL (VITAMIN D3) * Take 1 capsule by mouth once * THERAPEUTIC MULTIVITAMIN TABL* Take one(1) tablet daily. HYDROXYZINE PAMOATE 25 MG CAP* Take 1 capsule by mouth three* HYDROCODONE 5 MG-ACETAMINOPHE* Take 2 tablets by mouth twice* HYDROCODONE 5 MG-ACETAMINOPHE* Take 2 tablets by mouth twice* HYDROCODONE 5 MG-ACETAMINOPHE* Take 2 tablets by mouth twice* HYDROCODONE 5 MG-ACETAMINOPHE* Take 2 tablets by mouth twice* HYDROCODONE 5 MG-ACETAMINOPHE* Take 2 tablets by mouth twice* DLSMISJKMNO-XCXEFSAQR-AHC C-M* Take 1 capsule by mouth three* Problem List As Of Date 07/08/2018 Noted Resolved RAYNAUD'S SYNDROME [I73.00] Displacement of lumbar intervertebral disc with* More... SCIATICA [M54.30] URINARY CALCULUS NOS [N20.9] More... 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] INVALID FOR* TOBACCO USE DISORDER [F17.200] INVALID FOR* Tendonitis [M77.9] INVALID FOR* Hemorrhoids [K64.9] INVALID FOR* Blood in stool [K92.1] INVALID FOR* Duodenal ulcer due to Helicobacter pylori [K26.*INVALID FOR* Lumbar stenosis with neurogenic claudication [M*INVALID FOR* Meralgia paresthetica of left side [G57.12] INVALID FOR* ED (erectile dysfunction) [N52.9] INVALID FOR* Chronic low back pain [M54.5, G89.29] INVALID FOR* DDD (degenerative disc disease), lumbar [M51.36]INVALID FOR* Internal hemorrhoids without mention of complic*INVALID FOR* Pain in both hands [M79.641, M79.642] INVALID FOR* Class 1 obesity due to excess calories without *INVALID FOR* Prescriptions ordered this encounter Disp Refills Start End HYDROXYZINE PAMOATE 25 MG CAPSULE 90 c* 1 07/08/2018 Route: ORAL Sig: Take 1 capsule by mouth three times daily as needed. Medications Discontinued During This Encounter rosuvastatin (CRESTOR) 20 mg tablet 45 t* 3 08/21/2017 07/08/2018 Route: ORAL Sig: Take 0.5 tablets by mouth daily at bedtime. Disc: Reason for discontinue is not on file. tamsulosin ER (FLOMAX) 0.4 mg cap 30 c* 1 05/21/2018 07/08/2018 Route: ORAL Sig: Take 1 capsule by mouth daily at bedtime. Disc: Reason for discontinue is not on file. sildenafil, antihypertensive, (REVAT* 28 t* 1 12/04/2017 07/08/2018 Route: ORAL Sig: Take 2 tablets by mouth once daily as needed. Disc: Reason for discontinue is not on file. Encounter Status:Closed by ALANA ARMAS on 07/08/18 PROGRESS Observed: 07/08/2018 Status: COMPLETED Source: [place] 8:12 AM [facility] REPOSITORY HNO ID: [id number] Author: Alana (Lead Scientist) Mary Service: (none) Author Type: Nurse Practitioner Type: Progress Notes Filed: 07/08/2018 2:15 PM Note Text: Transitional Care Management Progress Note The patients TCM visit was performed within the 7 days of discharge. TCM Eligibility Documentation The following information was gathered during the initial Patient Outreach Encounter. If no data exists please enter it manually. If data exists please delete date of discharge and date of initial contact seen below. Patient's Date of discharge: 07/06/18 Date of initial coordinator contact after discharge: 07/06/18 patient called in to schedule Discharge diagnosis: Chest Pain Medication review completed Yes Alisha Eubanks MA Provider Documentation: In follow-up of hospitalization, Moshe Zimmerman is a 63 year old male with the chief complaint of Chest Pain I have reviewed the patient?s last hospital course including diagnostic testing performed during this hospitalization, their discharge medications, and my assessment and plan with the patient and any family members present at today?s visit. 1. I have reviewed the patient record including associated test results during the last hospitalization Yes 2. I have reviewed Lab test Yes 3. I have reviewed Radiology test Yes 4. I reviewed assessment/plan with the patient/family member Yes July 08, 2018 8:14 AM DISCHARGE SUMMARY Observed: 07/06/2018 Status: F Source: [place] 11:[address] [facility] REPOSITORY [facility] Medical Records Department [address] [place] [address] Discharge Summary 07/06/18 1121 MR#: [id number] Acct: [id number] Name: MOSHE ZIMMERMAN Rep #: [id number] : 1955 63 From: Marlene Mills MD PCP: Abel Pablo MD Status: ADM IN Y Location: [place] [address] Discharge Date and Diagnosis - Problem List Patient Problems: Active and Suspected Problems (Last Updated 07/04/18 @ 12:15 by Caryn Daly) Chest pain (Acute) Date of Admission: 07/04/18 Date of Discharge: 07/06/18 - Primary Discharge Diagnosis Active and Suspected Problems (Last Updated 07/04/18 @ 12:15 by Caryn Daly) #[address] elevation OR, status post DENNIS to mid RCA. #2 multivessel coronary artery disease, plan for staged intervention as outpatient. - Secondary Discharge Diagnosis Chronic Problems (Last Updated 07/04/18 @ 12:15 by Caryn Daly) Nicotine dependence (Chronic) Hyperlipidemia (Chronic) Essential (primary) hypertension (Chronic) Hospital Course and Treatment Imaging Results: Clinical Impression(s) from Imaging Studies Chest X-Ray 07/04/18 04:25 IMPRESSION: There is borderline cardiac size. No pulmonary edema, congestive heart failure or confluent pneumonia. Other nonacute findings as outlined above. Electronically Signed: Katarina Gaona MD at 4:51 EST , Service support , Dr. Bedoya/Dr. Atkins, cardiology. Operations: None Procedures: 2-D Echocardiogram, Cardiac catheterization, EKG Summary of Care Provided: Patient seen and examined on the day of discharge and appeared to be stable to be discharged home. He has no complaints, no chest pain or shortness of breath. No dizziness or lightheadedness upon standing and walking. His vital signs are stable. The patient is a 63 year old M presented to the ED because of chest pain, found to have ST elevation on inferior wall on EKG and his troponin was elevated. He was diagnosed with acute inferior ST elevation OR and he underwent emergent cardiac catheterization. Cardiac catheterization revealed 100% occlusion of the RCA, 90% stenosis of the mid LAD and 70% stenosis of the mid left circumflex. He underwent successful drug eluting stent to RCA. He was treated with loading dose of Brilinta and started on aspirin, statins and beta-blockers. Chest x-ray showed no acute findings. 2D echocardiogram revealed ejection fraction of 50-55%, stage I diastolic dysfunction, mildly hypokinetic mid inferior wall and RVSP of 30. Cardiology is planning to do staged intervention to LAD and left circumflex in the near future as outpatient. Would initiation of aspirin, statin and beta blockers as well as Brilinta, patient had no more symptoms of chest pain and he denies any chest pain or dizziness. His vital signs been stable. Patient discharged home in a stable medical condition, discharged on aspirin, statins and Brilinta as well as Coreg, continued on his home medication without any changes, recommended follow-up with PCP in 1 week and follow-up with cardiology according to Dr. Atkins recommendation. Patient Problems: Active and Suspected Problems (Last Updated 07/04/18 @ 12:15 by Caryn Daly) Chest pain (Acute) - Physical Exam General: Alert, Oriented x3, Cooperative, No apparent distress HEENT: Atraumatic, PERRLA, EOMI, Normocephalic Oral: Moist Mucosa, No Gingival or Mucosal Lesions/ Ulcerations Neck: Supple, No JVD, Negative Carotid Bruits, Trachea Midline, Thyroid Normal Size and Texture Lungs: Clear to auscultation, Normal air movement, No rhonchi, No wheeze, No rales Cardiovascular: Regular rate, Regular Rhythm, Normal S1, Normal S2, PMI Normal Abdomen: Bowel Sounds Present, Soft, Non Tender, Non-Distended, No Hepato-splenomegaly Extremities: No clubbing, No cyanosis, No edema Skin: No rashes, No breakdown Lymphatic: No Cervical, Supraclavicular, or Inguinal Adenopathy Neurological: Cranial nerves II-XII grossly intact, Neuro grossly intact Psych/Mental Status: Normal Affect, Appropriate, Alert and oriented to time, place, person, mood and affect Vital Signs Temp Pulse Resp BP Pulse Ox 97.6 F L 71 16 124/65 H 98 07/06/18 05:46 07/06/18 10:57 07/06/18 05:46 07/06/18 05:46 07/06/18 07:05 Oxygen Flow Rate (L/min) 2 Oxygen Delivery Method Room Air Weight: 217 lb 13.067 oz Body Mass Index (BMI) 31.4 Intake and Output for Last 24 Hours Intake Total 1660 / 1660 1060 / 1060 100 / 100 Output Total 775 / 775 350 / 350 Balance 885 / 885 710 / 710 100 / 100 Discharge Activity: Return to Normal Activity, May not drive while taking narcotic pain medications. Weight Bearing Status: Weight bearing as tolerated Call your doctor if you observe: Fever of 101 or Higher, Shortness of breath, Dizziness, Fainting spells, Chest pain, Increased palpitations (irregular heartbeat), Uncontrolled pain Home Medications: Medications to take at Discharge Hydrocodone/Acetaminophen [Hydrocodone-Acetamin 5-325 mg] 1 tab PO Q4H PRN PRN 07/04/18 Multivitamin [Multiple Vitamins] 1 tab PO DAILY 07/04/18 Naproxen 1 tab PO BID 07/04/18 Aspirin E.C. [Ecotrin] 81 mg PO DAILY@0800 #90 tab 07/06/18 Atorvastatin Calcium [Lipitor] 40 mg PO QHS #90 tab 07/06/18 Carvedilol [Coreg (Beta Sandi)] 3.125 mg PO BID #90 tab 07/06/18 Ticagrelor [Brilinta] 90 mg PO BID #90 tab 07/06/18 Following Prescrptions Were Given to Patient: Aspirin E.C. [Ecotrin] 81 mg PO DAILY@0800 #90 tab Atorvastatin Calcium [Lipitor] 40 mg PO QHS #90 tab Carvedilol [Coreg (Beta Sandi)] 3.125 mg PO BID #90 tab Ticagrelor [Brilinta] 90 mg PO BID #90 tab Primary Care Physician: Abel Pablo MD [Primary Care Provider] - Please follow up with your Primary Care Physician in: 1 week. Please Follow Up With: Sacha Atkins MD When: please call his office. Patient Instructions: Discharge Instructions for Heart Attack Disposition: Home Minutes spent on discharge:: 32 Patient Condition:: Stable Medical Necessity - Tobacco Use Smoking Status: Current every day smoker Tobacco Use: Cigarettes Meaningful Use Info Meaningful Use Diagnoses (Choose all that apply): AMI - AMI Aspirin given w/in 24hrs of arrival?: Yes ASA at discharge?: Yes Statins at discharge?: Yes Malinda/ARB at discharge?: No Reason Malinda/ARB not ordered:: Not indicated Beta Sandi at discharge?: Yes Done w/ Acute OR measure.: Yes Code Visit Inpatient E AND M: [id number] Disch Hosp 07/06/18 1128 <Electronically signed by Marlene Mills MD> Date Marlene Mills MD Cosigner Signature (if applicable): Date CC: Sacha Atkins MD; Marlene Mills; Abel Pablo MD Signed DISCHARGE INSTRUCTION Observed: 07/06/2018 Status: F Source: TAFT 8:[address] [facility] REPOSITORY [facility] Medical Records Department [address] [place] [address] [place] [address] Instructions for Home/Discharge Instructions 07/06/18 0801 MR#: [id number] Acct: [id number] Name: MOSHE ZIMMERMAN Rep #: [id number] : 1955 63 From: Marlene Mills MD PCP: Abel Pablo MD Status: ADM IN - Discharge Diagnoses Current Active Problems: Current Active and Chronic Problems (Last Updated 07/04/18 @ 12:15 by Caryn Daly) Nicotine dependence (Chronic) Hyperlipidemia (Chronic) Chest pain (Acute) You will use the following diet at home:: Cardiac Your food should be the consistency of: Regular Discharge Activity: Return to Normal Activity, May not drive while taking narcotic pain medications. Weight Bearing Status: Weight bearing as tolerated Call your doctor if you observe: Fever of 101 or Higher, Shortness of breath, Dizziness, Fainting spells, Chest pain, Increased palpitations (irregular heartbeat), Uncontrolled pain Instructions: Discharge Instructions for Heart Attack Allergies/Adverse Reactions: Allergies LODINE Allergy (Uncoded 07/04/18 04:17) Hives Medications to take at Discharge Hydrocodone/Acetaminophen [Hydrocodone-Acetamin 5-325 mg] 1 tab PO Q4H PRN PRN 07/04/18 Multivitamin [Multiple Vitamins] 1 tab PO DAILY 07/04/18 Naproxen 1 tab PO BID 07/04/18 Aspirin E.C. [Ecotrin] 81 mg PO DAILY@0800 #90 tab 07/06/18 Atorvastatin Calcium [Lipitor] 40 mg PO QHS #90 tab 18 Carvedilol [Coreg (Beta Sandi)] 3.125 mg PO BID #90 tab 07/06/18 Ticagrelor [Brilinta] 90 mg PO BID #90 tab 07/06/18 The following prescriptions were given: Aspirin E.C. [Ecotrin] 81 mg PO DAILY@0800 #90 tab Atorvastatin Calcium [Lipitor] 40 mg PO QHS #90 tab Carvedilol [Coreg (Beta Sandi)] 3.125 mg PO BID #90 tab Ticagrelor [Brilinta] 90 mg PO BID #90 tab Primary Care Physician: Abel Pablo MD [Primary Care Provider] - Please follow up with your Primary Care Physician in: 1 week. Test Results: Test results from this visit will be discussed in further detail at your follow-up appointment, if applicable. Please Follow Up With: Sacha Atkins MD When: please call his office. 07/06/18 0802 <Electronically signed by Marlene Mills MD> Date Marlene Mills MD CC: Abel Pablo MD CBC-COMPLETE BLOOD CNT Collected: 07/05/2018 Status: F Source: [place] NO DIFF 3:[address] [facility] REPOSITORY TYPE CODE TESTS RESULT OUT OF RANGE REFERENCE UNITS LAB L100.1000 4.4-11.0 K/mm3 Normal WBC 7.0 LAB L100.1200 4.6-6.2 M/mm3 Low RBC 4.05 LAB L100.1300 13.0-16.5 g/dl Low HGB 12.4 LAB L100.1400 40-54 % Low HCT 36.6 LAB L100.1500 80-94 fL Normal MCV 90.4 LAB L100.1600 27.0-32.0 pg Normal MCH 30.6 LAB L100.1700 32-36 g/gl Normal MCHC 33.9 LAB L100.1810 11.6-14.6 % Normal RDW CV 13.2 LAB L100.1820 35.1-43.9 fl Normal RDW SD 42.7 LAB L100.1900 150-450 K/mm3 Normal PLT 253 LAB L100.2000 6.2-12.0 fl Normal MPV 9.4 Performed By: #### L100.0500 #### [facility] [address] [place], [address] COMPREHENSIVE METABOLIC Collected: 07/05/2018 Status: F Source: [place] [facility] 3:[address] [facility] REPOSITORY TYPE CODE TESTS RESULT OUT OF RANGE REFERENCE UNITS LAB L501.0100 74-106 mg/dL Normal GLU 105 Result Comment: Fasting Glucose result from 100 to 125 mg/dL suggests IMPAIRED HOMEOSTASIS per A.D.A. criteria. Please note revised GLUCOSE reference range effective 2017. LAB L501.1000 7-18 mg/dL Normal BUN 14 LAB L501.1100 0.70-1.30 mg/dL Normal CREAT,SERUM 0.74 Result Comment: The validity of the calculated GFR AND GFRAA in patients over 70 years has not been determined. Clinical correlation is essential. LAB L501.1110 >60 mL/min Normal EST GFR 114 Result Comment: Non- GFR Calc LAB L501.1115 >60 mL/min Normal EST GFR - AA 138 Result Comment: GFR Calc LAB L501.1255 ml/min Normal Estimated CRCL 111.65 LAB L501.1300 10-20 RATIO BUN/CRE Normal 18.9 LAB L501.1500 6.4-8. g/dL Low 2 T PROT 6.1 LAB L501.1800 3.2-5. g/dL Low 0 ALB 2.8 LAB L501.1950 2.2-4. g/dL 2 GLOB Normal 3.3 LAB L501.2000 0.9-2. RATIO Low 4 A/G 0.8 LAB L501.2200 8.5-10 mg/dL Low .1 CA 8.1 LAB L501.4100 15-37 U/L High AST 158 LAB L501.4305 45-117 U/L ALK P Normal 100 LAB L501.4405 16-61 U/L ALT Normal 38 LAB L501.4600 0.20-1 mg/dL .00 T BILI Normal 0.30 LAB L501.5300 136-14 mmol/L 5 NA Normal 143 LAB L501.5600 3.5-5. mmol/L 1 K Normal 4.1 LAB L501.5900 98-107 mmol/L High CL 110 LAB L501.6100 21.0-3 mmol/L 2.0 CO2 Normal 25.0 LAB L501.6200 5-15 GAP Normal 8 Performed By: #### L500.4050 #### [facility] [address] [place], [address] LIPID PROFILE Collected: 07/05/2018 Status: F Source: TAFT 3:[address] [facility] REPOSITORY Order Comment: Comments: Please run on blood drawn earlier this morning TYPE CODE TESTS RESULT OUT OF RANGE REFERENCE UNITS LAB L501.4900 200 mg/dL Normal CHOL 127 Result Comment: <200 mg/dL Desirable 200-240 mg/dL Borderline >240 mg/dL High Risk LAB L501.5000 mg/dL Normal TRIG 63 Result Comment: The drugs N-Acetylcysteine and Metamizole may falsely depress this assay. Serum Triglycerides Reference Interval Normal <150 mg/dL Borderline high 150 - 199 mg/dL High 200 - 499 mg/dL Very High > or = 500 mg/dL LAB L501.6400 mg/dL Normal HDL 43 Result Comment: The drugs N-Acetylcysteine and Metamizole may falsely depress this assay. Reference Range HDL <40 mg/dL Low HDL Cholesterol HDL >or= 60 mg/dL High HDL Cholesterol LAB L501.6500 0-130 mg/dL Normal LDL 71 LAB L501.6600 5-40 mg/dL Normal VLDL 13 Performed By: #### L500.4100 #### [facility] [address] [facility] [place], [address] ECHOCARDIOGRAM COMPLETE Observed: 07/04/2018 Status: F Source: TAFT 2:[address] [facility] REPOSITORY [facility] Cardiovascular Services [address] [facility] [address] Echo Complete 07/04/18 0903 MR#: [id number] Acct: [id number] Name: MOSHE ZIMMERMAN [address] Rep #: [id number] : 1955 63 From: Sacha Atkins MD Attending Dr: Marlene Mills Status: ADM IN Ordering Dr: Bertha Bedoya MD Date: 07/04/18 Location: ICU Sex: M C Admitted: 07/04/18 Reason For Study: S/P OR Procedure This was a 2D Doppler, Color Flow transthoracic echocardiogram. The study was technically difficult. Exam performed portable in ICU/CCU. Left Ventricle Normal size and thickness. Apical false tendon noted. The estimated ejection fraction is 50-55 %. Stage 1 diastolic dysfunction. Mid-Inferior: Mildly hypokinetic. Right Ventricle Mildly dilated right ventricle. Normal systolic function. Atria Normal left atrium. The right atrium is mildly enlarged. Normal atrial septum. Mitral Valve The mitral valve is structurally normal. No prolapse or stenosis seen. Tricuspid Valve Normal tricuspid valve. Mild (1+) tricuspid valve insufficiency. Right ventricular systolic pressure estimated to be 30 mmHg. Aortic Valve Trisinus/trileaflet aortic valve. Mild diffuse aortic valve thickening. Pulmonic Valve Normal pulmonic valve. Great Vessels Normal aortic root. Normal arch. Normal inferior vena cava. Inferior vena cava collapse with sniff. Pericardium/Pleural No pericardial effusion. MMode/2D Measurements AND Calculations LVIDd: 4.6 cm IVSd: 1.2 cm Ao root diam: 3.0 cm LVIDs: 3.5 cm LVPWd: 1.1 cm RVDd: 4.0 cm FS: 24.0 % LAV(MOD-bp): 67.8 ml LA A4 area: 19.2 cm2 LA dimension(2D): 3.8 cm LAV(MOD-bp) Indexed: 30.9 ml/m2 LAV(MOD-sp2): 73.5 ml LAV(MOD-sp4): 56.2 ml RA A4 area: 21.0 cm2 Time Measurements MV dec time: 0.32 sec Doppler Measurements AND Calculations MV E max jolie: 52.6 cm/sec Lat Peak E' Jolie: 9.7 cm/sec Med Peak E' Jolie: 6.7 cm/sec MV A max jolie: 81.6 cm/sec E/E' lat: 5.4 E/E' med: 7.8 MV E/A: 0.64 Ao V2 max: 137.7 cm/sec LV V1 max: 85.2 cm/sec PA V2 max: 82.2 cm/sec Ao max P.6 mmHg LV V1 max P.9 mmHg TR max jolie: 240.5 cm/sec TR max P.2 mmHg Interpretation Summary The estimated ejection fraction is 50-55 %. Stage 1 diastolic dysfunction. Mid-Inferior: Mildly hypokinetic Mildly dilated right ventricle. Mild (1+) tricuspid valve insufficiency. Right ventricular systolic pressure estimated to be 30 mmHg. There is no comparison study available. Ordering Physician: Bertha Bedoya Referring Physician: Abel Pablo Performed By: Celena Morris, RDCS, RVT 07/04/18 1051 Date Sacha Atkins MD CC: Bertha Bedoya MD; Sacha Atkins MD; Marlene Mills; Abel Pablo MD Date Dictated: 07/04/18 0903 Date Transcribed: 07/04/18 105 Energy Engineer: Signed CONSULTATION Observed: 07/04/2018 Status: F Source: TAFT 6:[address] [facility] REPOSITORY [facility] Medical Records Department [address] [place] [address] Consultation 07/04/18 0646 MR#: [id number] Acct: [id number] Name: MOSHE ZIMMERMAN Rep #: [id number] : 1955 63 From: Bertha Bedoya MD PCP: Abel Pablo MD Status: ADM IN Y Location: ICU [id number] Reason for Consult Date of Consultation: 07/04/18 History of Present Illness: The patient is a 63 year old M with past medical history significant for dyslipidemia and chronic back pain. He woke up at around 3 AM this morning with anterior chest discomfort that radiated to the left arm. Presented to the emergency room. In the emergency room an EKG was done which showed acute inferior ST elevation myocardial infarction. Subsequently a STEMI alert was called. Patient denies any previous history of coronary artery disease. [] Past Medical History Allergies/Adverse Reactions: Allergies LODINE Allergy (Uncoded 07/04/18 04:17) Hives Home Medications: Ambulatory Orders Medication Instructions Recorded Hydrocodone/Acetaminophen 1 tab PO Q4H PRN PRN 07/04/18 Surgical History: - - Internal hemorrhoid surgery; and back surgery - *Family History Paternal History Items: Heart Disease Maternal History Items: Cancer Smoking Status: Current every day smoker Tobacco Use: Cigarettes Review of Systems - Review of Systems General: Denies: Fever, Fatigue, Weight Loss Cardiovascular: Reports: Chest Discomfort at Rest. Denies: Orthopnea, PND Respiratory: Denies: Cough, Hemoptysis Gastrointestinal: Denies: Heart Burn, Abdominal Discomfort, Jaundice Neurological: Denies: History of TIA, History of CVA Endocrine: Denies: Heat Intolerance, Cold Intolerance Hematologic/ Lymphatic: Denies: Easy Brusing, Easy Bleeding Subjectve: Appeared anxious. Objective: Vital Signs Temp Pulse Resp BP Pulse Ox 97.5 F L 81 16 174/96 H 99 07/04/18 04:17 07/04/18 04:17 07/04/18 04:22 07/04/18 04:22 07/04/18 04:32 Oxygen Flow Rate (L/min) 2 Oxygen Delivery Method Nasal Cannula Weight: 101.5 kg Body Mass Index (BMI) 31.1 General: Awake, Alert, Oriented x 3, In Acute Distress HEENT: Atraumatic Neck: Supple, No JVD Lungs: Clear to auscultation Cardiovascular: Regular Rhythm, Normal S1, Normal S2 Vascular: No Carotid Bruits Abdomen: Bowel Sounds Present, Soft Extremities: No edema Neurological: No Focal Motor or Sensory Deficit Psych/Mental Status: Anxious 07/04/18 04:22: WBC 6.7, RBC 4.79, Hgb 14.5, Hct 43.1, MCV 90.0, MCH 30.3, MCHC 33.6, RDW 13.1, RDW Differential 43.0, Plt Count 309, MPV 9.5, Immature Gran % (Auto) 0.100, Neut % (Auto) 50.8, Lymph % (Auto) 35.2, Weakley % (Auto) 10.8 H, Eos % (Auto) 2.7, Baso % (Auto) 0.4, Absolute Neuts (auto) 3.4, Total Counted Not Reportable 07/04/18 04:22: PT 12.8, INR 1.0, APTT 31.9 07/04/18 04:22: Sodium 142, Potassium 3.8, Chloride 106, Carbon Dioxide 28.0, Anion Gap 8, BUN 14, Creatinine 0.95, Est GFR (MDRD) Af Amer 104, Est GFR (MDRD) Non-Af 86, BUN/Creatinine Ratio 14.8, Glucose 128 H, Calcium 9.1, Troponin I 1.470 H* Rhythm: Normal sinus rhythm EKG: EKG done in the emergency room showed acute ST elevation myocardial infarction in the inferior leads ECHO: Stress Test: Cardiac Cath: PCI: CT Surgery: Holter monitor: EPS: PPM: CXR: Chest CT Scan: Assessment/Plan 1. Acute inferior myocardial infarction. Patient was advised emergent coronary angiography and revascularization. 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 Successful percutaneous revascularization was performed with placement of drug-eluting stent to the distal RCA mid and proximal RCA. Excellent results were noted. RANDY-3 flow was restored. Patient's symptoms resolved. 2. Start patient on beta blockers. Aspirin for life. Brilinta for at least one year. 3. Patient has severe residual lesion in his left anterior descending artery. Also lesion in the mid left circumflex artery. For staged PCI as outpatient. 4. Check 2D echocardiogram to assess LV function 5. Nicotine dependence. Counseled to quit. 6. History of dyslipidemia. Statins. 07/04/18 0651 <Electronically signed by Bertha Bedoya MD> Date Bertha Bedoya MD Cosigner Signature (if applicable): Date CC: Sacha Atkins MD; Abel Pablo MD Signed ACT ACTIVATED CLOTTING Collected: 07/04/2018 Status: F Source: TAFT TIME 6:[address] [facility] REPOSITORY TYPE CODE TESTS RESULT OUT OF RANGE REFERENCE UNITS LAB L9100.0100 74-137 sec High ACTk CLOT 340 TIME Performed By: #### L9100.0100 #### [facility] Point of Care [address] [place] [address] HISTORY AND PHYSICAL Observed: 07/04/2018 Status: F Source: [place] EXAM 5:[address] [facility] REPOSITORY [facility] Medical Records Department [address] [place] [address] History and Physical 07/04/18 0448 MR#: [id number] Acct: [id number] Name: MOSHE ZIMMERMAN Rep #: [id number] : 1955 63 From: Mack Pittman MD PCP: Abel Pablo MD Status: ADM IN Y Location: ICU [id number] Problem List (1) Chest pain Status: Acute History of Present Illness Date of Admission: 07/04/18 Chief Complaint: CHEST PAIN The patient is a 63 year old M with a significant history of hypertension; hyperlipidemia who presented with progressively worsening excruciating pressure- like substernal pain that started a few hours before presentation to the emergency department. His chest pain radiated to his left arm. Associated with symptoms is nausea, vomiting and diaphoresis. Patient was given a pain medication to help with his pain. Patient was noted to have ST elevation. Cardiology saw the patient at the ED and patient was wheeled to the Metalworking Specialist for cardiac catheterization. Past Medical History Medical History: Medical History (Last Updated 07/04/18 @ 05:35 by Mack Pittman MD) Hyperlipidemia E78.5 Hypertension I10 Allergies LODINE Allergy (Uncoded 07/04/18 04:17) Hives Home Medications: Ambulatory Orders Medication Instructions Recorded Hydrocodone/Acetaminophen 1 tab PO Q4H PRN PRN 07/04/18 Surgical History: - - Internal hemorrhoid surgery; and back surgery Smoking Status: Current every day smoker Tobacco Use: Cigarettes - *Family History Paternal History Items: Heart Disease Maternal History Items: Cancer Review of Systems Constitutional: Denies: Chills, Fever, Weight Change HEENT: Denies: Head Aches, Sinus Congestion, Sinus Drainage Cardiovascular: Reports: Chest Pain, Chest Pressure. Denies: Palpitations Respiratory: Denies: Cough, Shortness of breath at rest, Sputum production Gastrointestinal: Reports: Nausea, Vomiting. Denies: Abdominal Pain Genitourinary: Denies: Dysuria Musculoskeletal: Denies: Joint Pain, Joint Tenderness Skin: Denies: Rash, Wounds Neurological: Denies: Numbness, Tingling, Focal weakness Psychiatric: Denies: Anxiety, Depression, Homicidal Ideations, Suicidal Ideations Hematologic/ Lymphatic: Denies: Easy Bruising, Easy Bleeding VTE Information - Inpt Only VTE Present on Admission: No VTE Mechan Device Prophylaxis: None VTE Pharm Prophylaxis ordered?: No Reason prophylaxis not ordered:: Treatment Not Indicated - Patient received heparin at emergency department. Patient Problems: Active and Suspected Problems (Last Updated 07/04/18 @ 05:35 by Mack Pittman MD) Chest pain (Acute) - Physical Exam General: Alert, Oriented x3, Cooperative HEENT: Atraumatic, PERRLA, EOMI, Normocephalic Neck: Supple, No JVD, Negative Carotid Bruits Lungs: Clear to auscultation, Normal air movement Cardiovascular: Regular rate, No murmurs Abdomen: Bowel Sounds Present, Soft, Non Tender Extremities: No edema, Capillary Refill Less than 3 Seconds Skin: No rashes, No breakdown Musculoskeletal: No Tenderness to Palpation of Joints or Extremities Neurological: Cranial nerves II-XII grossly intact Psych/Mental Status: Normal Affect, Appropriate Vital Signs Temp Pulse Resp BP Pulse Ox 97.5 F L 81 16 174/96 H 99 07/04/18 04:17 07/04/18 04:17 07/04/18 04:22 07/04/18 04:22 07/04/18 04:32 Oxygen Flow Rate (L/min) 2 Oxygen Delivery Method Nasal Cannula Weight: 101.5 kg Body Mass Index (BMI) 31.1 Laboratory Tests Past 24 Hrs WBC 6.7 Assessment/Plan All Active Problems (Last Updated 07/04/18 @ 05:35 by Mack Pittman MD) Chest pain (Acute) The patient is a 63 year old M with a significant history of hypertension; hyperlipidemia who presented with progressively worsening excruciating pressure- like substernal pain and found to have ST elevation OR. ST elevation OR Independent review of EKG showed T wave inversion in inferior leads and reciprocal inversions in lead I, aVL and V2. Patient was taken to the Metalworking Specialist after receiving Brilinta and heparin. Patient came to the hospital with squad. He took one aspirin at home. Patient was wheeled to label paster after seeing cardiology at the ED. Follow up with further cardiology recommendations. Hyperlipidemia Patient takes Crestor at home. Follow-up with cardiology recommendations. Hypertension Blood pressure on admission was not within goal. Follow up with further heart medications after cardiac cath. Tobacco abuse Counseled NicoDerm patch ordered. DVT prophylaxis Received heparin at the ED SCD ordered Code Visit Inpatient E AND M: [id number] Init Hosp L3 07/04/18 0553 <Electronically signed by Mack Pittman MD> Date Mack Pittman MD Cosigner Signature: Date (if applicable) CC: Mack Pittman MD; Abel Pablo MD Signed ACT ACTIVATED CLOTTING Collected: 07/04/2018 Status: F Source: [place] TIME 4:[address] [facility] REPOSITORY TYPE CODE TESTS RESULT OUT OF RANGE REFERENCE UNITS LAB L9100.0100 74-137 sec Normal ACTk CLOT 125 TIME Performed By: #### L9100.0100 #### [facility] Point of Care [address] [facility] [place] [address] EMERGENCY DEPARTMENT Observed: 07/04/2018 Status: F Source: [place] SUMMARY 4:[address] [facility] REPOSITORY [facility] Medical Records Department [address] [address] Emergency Department Summary 07/04/18 0427 MR#: [id number] Acct: [id number] Name: MOSHE ZIMMERMAN Rep #: [id number] : 1955 63 From: Laurent Long MD PCP: Abel Pablo MD Status: REG ER - ER Visit Summary Date of Service: 07/04/18 Chief Complaint: Chest pain History of Present Illness: The patient is a 63 M with chest pain for an hour and a half. It woke him up from sleep. He has a history of hypercholesterolemia, he is a smoker and he has a strong family history of chest pain. Patient continues in the ED. Physical Examination: She appears in some distress, he is slightly diaphoretic Moist mucous membranes, no obvious facial deformity No C-spine tenderness supple neck. Regular rate and rhythm without any obvious murmurs Clear lungs bilaterally speaking in full sentences without any obvious respiratory distress Abdomen soft and nontender no guarding or rebound Moves all extremities without any difficulty or pain. Skin does not show any obvious rashes or lesions, no trauma. Alert oriented 3 with no gross focal deficit Emergency Department Course and Treatment: Emergent EKG shows an inferior ST elevation OR with reciprocal changes. STEMI team was activated. Patient was given heparin Brilinta as well as aspirin. I talked to the senior market research analyst for emergent catheterization. Disposition: Admit to the hospital Impression: Acute ST elevation myocardial infarction This note was generated with [employer] dictation software. It may contain incorrect words, spelling, and punctuation that were not noted in review of the chart prior to signing ED Disposition - Plan for ED Patient: Chief Complaint: Chest Pain Referrals: Abel Pablo MD [Primary Care Provider] - What to do if you have Problems For any increased pain, shortness of breath, bleeding, nausea or vomiting, chest pain, or any unexpected problems, contact your Primary Care Provider. Call [facility] ([phone]) or report to the closest Emergency Room. Call 911 if necessary. 07/04/18 0431 <Electronically signed by Laurent Long MD> Date Laurent Long MD Cosigner Signature (If Indicated): Date CC: Alonso Lamar MD; Abel Pablo MD CHEST 1 VIEW Observed: 07/04/2018 Status: F Source: TAFT (PORTABLE) 4:[address] [facility] REPOSITORY [facility] Imaging Services [address] [place] [id number] Chest 1 View (Portable) MR#: [id number] Acct: [id number] Name: MOSHE ZIMMERMAN Rep #: [id number] : 1955 M 63 From: Katarina Gaona MD PCP: Abel Pablo MD Status: REG ER Study: Chest 1 View (Portable) Date of Exam: 07/04/18 Exam# [id number] Ordering Dr: Laurent Long MD STUDY: X-RAY CHEST REASON FOR EXAM: Male, 63 years old. Chest pain TECHNIQUE: Single AP portable view of the chest. COMPARISON: None. FINDINGS: There are superimposed monitor leads. The lungs are hyperaerated. Mild interstitial prominence. There is no focal parenchymal abnormality. There is no demonstrated pleural abnormality. There is borderline cardiomegaly. Normal mediastinum and elida. Normal visualized pulmonary arteries. There is atherosclerotic calcification of the aortic arch with tortuosity. There are diffuse degenerative changes of the visualized thoracic spine. Normal visualized ribs, clavicles, and shoulders. There is no demonstrated abnormality of the visualized soft tissue structures of the upper abdomen. RAD/Chest 1 View (Portable) IMPRESSION: There is borderline cardiac size. No pulmonary edema, congestive heart failure or confluent pneumonia. Other nonacute findings as outlined above. Electronically Signed: Katarina Gaona MD at 4:51 EST , Service support , CC: Abel Pablo MD; Laurent Long MD Energy Engineer: Signed CBC W/DIFF, AUTOMATED Collected: 07/04/2018 Status: F Source: TAFT 4:[address] [facility] REPOSITORY TYPE CODE TESTS RESULT OUT OF RANGE REFERENCE UNITS LAB L100.1000 4.4-11.0 K/mm3 Normal WBC 6.7 LAB L100.1200 4.6-6.2 M/mm3 Normal RBC 4.79 LAB L100.1300 13.0-16.5 g/dl Normal HGB 14.5 LAB L100.1400 40-54 % Normal HCT 43.1 LAB L100.1500 80-94 fL Normal MCV 90.0 LAB L100.1600 27.0-32.0 pg Normal MCH 30.3 LAB L100.1700 32-36 g/gl Normal MCHC 33.6 LAB L100.1810 11.6-14.6 % Normal RDW CV 13.1 LAB L100.1820 35.1-43.9 fl Normal RDW SD 43.0 LAB L100.1900 150-450 K/mm3 Normal PLT 309 LAB L100.2000 6.2-12.0 fl Normal MPV 9.5 LAB L100.2100 47-70 % Normal NEUT% 50.8 LAB L100.2200 19-41 % Normal LY% 35.2 LAB L100.2300 0-10 % High MONO% 10.8 LAB L100.2400 0-5 % Normal EO% 2.7 LAB L100.2500 0-1 % Normal BASO% 0.4 LAB L100.2550 0.0-0.9 % Normal IM GRAN % 0.100 Result Comment: IG% - Immature Granulocytes (promyelocytes, myelocytes and metamyelocytes) > 1% indicates that a LEFT SHIFT is Present. LAB L100.2620 2.0-7.7 X10 3/uL Normal Absolute Neut 3.4 LAB L100.2720 0.83-4.51 X10 3/ul Normal Absolute Lymph 2.35 Performed By: #### L100.0100 #### [facility] [address] [facility] [facility] [address] PROTHROMBIN TIME W/INR Collected: 07/04/2018 Status: F Source: TAFT 4:[address] [facility] REPOSITORY TYPE CODE TESTS RESULT OUT OF RANGE REFERENCE UNITS LAB L300.4150 11.7-14.9 SECONDS Normal PROTIME 12.8 LAB L300.4200 Normal INR 1.0 Performed By: #### L300.3900, L300.4310 #### [facility] [address] [place], [address] PARTIAL THROMBOPLAST Collected: 07/04/2018 Status: F Source: TAFT TIME 4:[address] [facility] REPOSITORY TYPE CODE TESTS RESULT OUT OF RANGE REFERENCE UNITS LAB L300.4310 24.1-36.2 Seconds Normal PTT 31.9 Performed By: #### L300.3900, L300.4310 #### [facility] [address] [place], [address] BASIC METABOLIC Collected: 07/04/2018 Status: F Source: [place] PROFILE (BMP) 4:[address] [facility] REPOSITORY TYPE CODE TESTS RESULT OUT OF RANGE REFERENCE UNITS LAB L501.0100 74-106 mg/dL High GLU 128 Result Comment: Fasting Glucose result greater than or equal to 126 mg/dL suggests DIABETES MELLITUS per A.D.A. criteria. Please note revised GLUCOSE reference range effective 2017. LAB L501.1000 7-18 mg/dL Normal BUN 14 LAB L501.1100 0.70-1.30 mg/dL Normal CREAT,SERUM 0.95 Result Comment: The validity of the calculated GFR AND GFRAA in patients over 70 years has not been determined. Clinical correlation is essential. LAB L501.1110 >60 mL/min Normal EST GFR 86 Result Comment: Non- GFR Calc LAB L501.1115 >60 mL/min Normal EST GFR - AA 104 Result Comment: GFR Calc LAB L501.1255 ml/min Normal Estimated CRCL 86.97 LAB L501.1300 10-20 RATIO Normal BUN/CRE 14.8 LAB L501.2200 8.5-10 mg/dL Normal .1 CA 9.1 LAB L501.5300 136-14 mmol/L Normal 5 NA 142 LAB L501.5600 3.5-5. mmol/L Normal 1 K 3.8 LAB L501.5900 98-107 mmol/L Normal CL 106 LAB L501.6100 21.0-3 mmol/L Normal 2.0 CO2 28.0 LAB L501.6200 5-15 Normal GAP 8 Performed By: #### L500.2500, L501.4010 #### [facility] [address] [place], [place], [address] TROPONIN-I Collected: 07/04/2018 Status: F Source: [place] 4:[address] [facility] REPOSITORY TYPE CODE TESTS RESULT OUT OF RANGE REFERENCE UNITS LAB L501.4010 <0.045 ng/mL High alert 1.470 TROPONIN-I Result Comment: Critical Result(s) Called at: 04:59:02 07/04/2018 by: YAHIR Samaniego TROPONIN-I EXPECTED VALUES <0.045 Negative 0.045 - 0.590 Consistent with Cardiac Damage > OR = 0.600 Critical Value Not every elevated troponin is indicative of OR. These values should be used with clinical judgement in examining the patient's clinical picture for diagnosis. To establish a diagnosis of OR versus myocardial injury, there must be a demonstrated rise and/or fall in the troponin values, in addition to ischemic symptoms, EKG changes, new regional wall motion abnormality, and/or angiographical evidence. PLEASE NOTE: REFERENCE RANGES EDITED 17 Performed By: #### L500.2500, L501.4010 #### [facility] [address] [place], [address] MAGNESIUM Collected: 07/04/2018 Status: F Source: TAFT 4:[address] [facility] REPOSITORY Order Comment: Comments: add on to am lab TYPE CODE TESTS RESULT OUT OF RANGE REFERENCE UNITS LAB L501.5200 1.6-2.6 mg/dL Normal MG 1.8 Performed By: #### L501.5200 #### [facility] [address] [place], [address] XR FOOT 3V AP/LAT/OBL Observed: 07/02/2018 Status: F Source: [place] RT 11:59 AM [facility] REPOSITORY * * *Final Report* * * DATE OF EXAM: Jul 02 2018 11:59AM WOX [id number] - XR FOOT 3V AP/LAT/OBL RT / PROCEDURE REASON: Foot pain, right * * * * Physician Interpretation * * * * RIGHT foot HISTORY: 63 years old Clinical information: Foot pain, right right foot pain on top since Sunday/no injuries TECHNIQUE: Images: XR FOOT 3V AP/LAT/OBL RT Comparison: None. RESULT: Findings: Mild narrowing of all the interphalangeal joints. No fractures or dislocations are seen. Appears to be flattening of the longitudinal arch. IMPRESSION: Degenerative changes as discussed. Energy Engineer: PSCB Transcribe Date/Time: Jul 02 2018 4:18P Dictated by : CORDELL CHEN DO This examination was interpreted and the report reviewed and electronically signed by: CORDELL CHEN DO on Jul 02 2018 4:19PM EST [id number] PROGRESS Observed: 07/02/2018 Status: COMPLETED Source: [place] 11:52 AM [facility] [place] REPOSITORY HNO ID: [id number] Author: Oleysa Troncoso (Tech) Service: (none) Author Type: Geographic Area Intelligence Officer Type: Progress Notes Filed: 07/02/2018 11:59 AM Note Text: Radiology Service Progress Note PATIENT NAME: Moshe Zimmerman DATE OF SERVICE: July 02, 2018 TIME: 11:52 AM PATIENT IDENTITY VERIFICATION COMPLETED USING TWO (2) METHODS: Patient confirmed name verbally and Date of . PATIENT GENDER DATA: Male PATIENT RELEVANT IMPLANT DATA REVIEWED: Not Applicable RADIOLOGY DEPARTMENT: General X-ray: Exam(s) Completed: Lower Extremity X-Ray(s): Foot, Right and Wt. Bearing: PERIPHERAL IV DATA: Not applicable SIGNED BY: Olesya Ojeda July 02, 2018 11:52 AM PROGRESS Observed: 07/02/2018 Status: COMPLETED Source: [place] 11:30 AM [facility] [place] REPOSITORY O ID: [id number] Author: Alana Armas Service: (none) Author Type: Nurse Practitioner Type: Progress Notes Filed: 07/02/2018 12:04 PM Note Text: 07/02/2018 Patient presents with: Pain (foot): right sunday swelling and pain no injury SUBJECTIVE: This is a 63 year old that is here today for pain and swelling to the top of the right foot. He has a history of club foot with surgical correction in this foot and it has caused him pain and swelling before, but usually resolves quickly. He states that he noticed it on Sunday and the swelling was at its worst this AM, but better now. She denies any heat or increased erythema. No known injury, but did recently get new boots for work that are not very comfortable for that foot yet. He has not seen a government auditor since Dr. Verde left, but would like to. PAST MEDICAL HISTORY Diagnosis Date - Displacement of lumbar intervertebral disc without myelopathy - Encounter for Zostavax administration 05/20/2015 done at [facility] - Raynaud's syndrome - Sciatica - Tobacco abuse - Urinary calculus, unspecified Renal stones--calcium oxalate ALLERGIES Lipitor [Atorvastatin Calcium]; Lodine [Etodolac]; Wellbutrin [Bupropion Hcl] MEDICATIONS Current Outpatient Prescriptions: tamsulosin ER (FLOMAX) 0.4 mg cap Take 1 capsule by mouth daily at bedtime. HYDROcodone-acetaminophen (NORCO) 5-325 mg per tablet Take 2 tablets by mouth twice daily as needed for Pain for up to 30 days.Earliest Fill Date: 06/04/18 [START ON 07/04/2018] HYDROcodone-acetaminophen (NORCO) 5- 325 mg per tablet Take 2 tablets by mouth twice daily as needed for Pain for up to 30 days.Earliest Fill Date: 07/04/18 [START ON 08/03/2018] HYDROcodone-acetaminophen (NORCO) 5- 325 mg per tablet Take 2 tablets by mouth twice daily as needed for Pain for up to 30 days.Earliest Fill Date: 08/03/18 HYDROcodone-acetaminophen (NORCO) 5-325 mg per tablet Take 2 tablets by mouth twice daily as needed for Pain for up to 30 days.Earliest Fill Date: 03/06/18 HYDROcodone-acetaminophen (NORCO) 5-325 mg per tablet Take 2 tablets by mouth twice daily as needed for Pain for up to 30 days.Earliest Fill Date: 04/05/18 sildenafil, antihypertensive, (REVATIO) 20 mg tablet Take 2 tablets by mouth once daily as needed. rosuvastatin (CRESTOR) 20 mg tablet Take 0.5 tablets by mouth daily at bedtime. Atvwqiitxap-Ptubmosus-Nxd C-Mn (GLUCOSAMINE CHONDROITIN MAXSTR) 500-400 mg cap Take 1 capsule by mouth three times daily. Cholecalciferol, Vitamin D3, 1,000 unit cap Take 1 capsule by mouth once daily. THERAPEUTIC MULTIVITAMIN TAB Take one(1) tablet daily. No current facility-administered medications for this visit. Medications and allergies reviewed by this provider. SOCIAL HISTORY Social History Marital status: Spouse name: Jia Years of education: Number of children: Occupational History Occupation Employer Comment [employer] Social History Main Topics Smoking status: Current Every Day Smoker Packs/day: 2.00 Years: 40.00 Types: Cigarettes Smokeless tobacco: Current User Alcohol use: No Drug use: No REVIEW OF SYSTEMS see HPI OBJECTIVE: BP 134/82 Pulse 67 Resp 20 Wt 101.6 kg (224 lb) SpO2 98% BMI 31.69 kg/m? . Vital signs reviewed by this provider. PHYSICAL EXAMINATION: General appearance: Well appearing, alert, in no acute distress, well-hydrated, well nourished. Skin: Skin color, texture, turgor normal, no suspicious rashes or lesions Lungs: lungs clear to auscultation. No wheezing, rhonchi, rales Heart: RRR without murmur, gallop, or rubs. No ectopy Extremities: right foot with slight erythema and swelling, tender to touch, tender with movement to the toes Musculoskeletal: No joint swelling, deformity, or tenderness ASSESSMENT/PLAN: 1. 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 Foot pain, right - ICD9: 729.5, ICD10: M79.671 - RICE - XR FOOT GENERAL 3V AP/LAT/OBL RT - CONSULT TO PODIATRY - NAPROXEN 500 MG TABLET SOPHIE Martinez Observed: 07/02/2018 Status: COMPLETED Source: [place] 11:20 AM [facility] REPOSITORY Office Visit (FAMPWS) MOSHE ZIMMERMAN ([id number]) 1955 M Date Time Provider Department 07/02/18 11:20 AM ALANA ARMAS (PASCUAL) FAMJuanWS During your visit today, we recorded the following information about you: Pulse Respiration Blood pressure Weight 67/minute 20/minute 134/82 101.6 kg Alana Armas APRN.CNP 07/02/2018 12:04 PM Signed 07/02/2018 Patient presents with: Pain (foot): right sunday swelling and pain no injury SUBJECTIVE: This is a 63 year old that is here today for pain and swelling to the top of the right foot. He has a history of club foot with surgical correction in this foot and it has caused him pain and swelling before, but usually resolves quickly. He states that he noticed it on Sunday and the swelling was at its worst this AM, but better now. She denies any heat or increased erythema. No known injury, but did recently get new boots for work that are not very comfortable for that foot yet. He has not seen a government auditor since Dr. Verde left, but would like to. PAST MEDICAL HISTORY Diagnosis Date - Displacement of lumbar intervertebral disc without myelopathy - Encounter for Zostavax administration 05/20/2015 done at [facility] - Raynaud's syndrome - Sciatica - Tobacco abuse - Urinary calculus, unspecified Renal stones--calcium oxalate ALLERGIES Lipitor [Atorvastatin Calcium]; Lodine [Etodolac]; Wellbutrin [Bupropion Hcl] MEDICATIONS Current Outpatient Prescriptions: tamsulosin ER (FLOMAX) 0.4 mg cap Take 1 capsule by mouth daily at bedtime. HYDROcodone-acetaminophen (NORCO) 5-325 mg per tablet Take 2 tablets by mouth twice daily as needed for Pain for up to 30 days.Earliest Fill Date: 06/04/18 [START ON 07/04/2018] HYDROcodone-acetaminophen (NORCO) 5- 325 mg per tablet Take 2 tablets by mouth twice daily as needed for Pain for up to 30 days.Earliest Fill Date: 07/04/18 [START ON 08/03/2018] HYDROcodone-acetaminophen (NORCO) 5- 325 mg per tablet Take 2 tablets by mouth twice daily as needed for Pain for up to 30 days.Earliest Fill Date: 08/03/18 HYDROcodone-acetaminophen (NORCO) 5-325 mg per tablet Take 2 tablets by mouth twice daily as needed for Pain for up to 30 days.Earliest Fill Date: 03/06/18 HYDROcodone-acetaminophen (NORCO) 5-325 mg per tablet Take 2 tablets by mouth twice daily as needed for Pain for up to 30 days.Earliest Fill Date: 04/05/18 sildenafil, antihypertensive, (REVATIO) 20 mg tablet Take 2 tablets by mouth once daily as needed. rosuvastatin (CRESTOR) 20 mg tablet Take 0.5 tablets by mouth daily at bedtime. Cgsgsnvkrvi-Nvdhyvsna-Yhm C-Mn (GLUCOSAMINE CHONDROITIN MAXSTR) 500-400 mg cap Take 1 capsule by mouth three times daily. Cholecalciferol, Vitamin D3, 1,000 unit cap Take 1 capsule by mouth once daily. THERAPEUTIC MULTIVITAMIN TAB Take one(1) tablet daily. No current facility-administered medications for this visit. Medications and allergies reviewed by this provider. SOCIAL HISTORY Social History Marital status: Spouse name: Jia Years of education: Number of children: Occupational History Occupation Employer Comment [employer] Social History Main Topics Smoking status: Current Every Day Smoker Packs/day: 2.00 Years: 40.00 Types: Cigarettes Smokeless tobacco: Current User Alcohol use: No Drug use: No REVIEW OF SYSTEMS see HPI OBJECTIVE: BP 134/82 Pulse 67 Resp 20 Wt 101.6 kg (224 lb) SpO2 98% BMI 31.69 kg/m? . Vital signs reviewed by this provider. PHYSICAL EXAMINATION: General appearance: Well appearing, alert, in no acute distress, well-hydrated, well nourished. Skin: Skin color, texture, turgor normal, no suspicious rashes or lesions Lungs: lungs clear to auscultation. No wheezing, rhonchi, rales Heart: RRR without murmur, gallop, or rubs. No ectopy Extremities: right foot with slight erythema and swelling, tender to touch, tender with movement to the toes Musculoskeletal: No joint swelling, deformity, or tenderness ASSESSMENT/PLAN: 1. 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 Foot pain, right - ICD9: 729.5, ICD10: M79.671 - RICE - XR FOOT GENERAL 3V AP/LAT/OBL RT - CONSULT TO PODIATRY - NAPROXEN 500 MG TABLET Alana Armas APRN.RECORD SYSTEMS ANALYST Referring Provider: SELF [200] Allergies As of Date: 07/02/2018 Noted Allergy Reaction LIPITOR (ATORVASTATIN CALCIUM) 06/07/2005 Comments: muscle cramps LODINE (ETODOLAC) 02/18/2008 Comments: depression WELLBUTRIN (BUPROPION HCL) 06/07/2005 Date Reviewed: 07/02/2018 Reviewed by: Alisha Mobley) MARISSA Eubanks - Fully Assessed Reason for Visit: Pain (foot) [760] Cmt: right sunday swelling and pain no injury Primary Visit Diagnosis: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 Take with food.Disp: 60 tabletRfl: 0 Prescriptions as of 07/02/2018 Sig: NAPROXEN 500 MG TABLET Take 1 tablet by mouth twice * TAMSULOSIN 0.4 MG CAPSULE Take 1 capsule by mouth daily* HYDROCODONE 5 MG-ACETAMINOPHE* Take 2 tablets by mouth twice* HYDROCODONE 5 MG-ACETAMINOPHE* Take 2 tablets by mouth twice* HYDROCODONE 5 MG-ACETAMINOPHE* Take 2 tablets by mouth twice* HYDROCODONE 5 MG-ACETAMINOPHE* Take 2 tablets by mouth twice* HYDROCODONE 5 MG-ACETAMINOPHE* Take 2 tablets by mouth twice* SILDENAFIL (ANTIHYPERTENSIVE)* Take 2 tablets by mouth once * ROSUVASTATIN 20 MG TABLET Take 0.5 tablets by mouth calvin* MANFORQHMXL-WTFHEPKZS-YIO C-M* Take 1 capsule by mouth three* CHOLECALCIFEROL (VITAMIN D3) * Take 1 capsule by mouth once * THERAPEUTIC MULTIVITAMIN TABL* Take one(1) tablet daily. Problem List As Of Date 07/02/2018 Noted Resolved RAYNAUD'S SYNDROME [I73.00] Displacement of lumbar intervertebral disc with* More... SCIATICA [M54.30] URINARY CALCULUS NOS [N20.9] More... 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] INVALID FOR* TOBACCO USE DISORDER [F17.200] INVALID FOR* Tendonitis [M77.9] INVALID FOR* Hemorrhoids [K64.9] INVALID FOR* Blood in stool [K92.1] INVALID FOR* Duodenal ulcer due to Helicobacter pylori [K26.*INVALID FOR* Lumbar stenosis with neurogenic claudication [M*INVALID FOR* Meralgia paresthetica of left side [G57.12] INVALID FOR* ED (erectile dysfunction) [N52.9] INVALID FOR* Chronic low back pain [M54.5, G89.29] INVALID FOR* DDD (degenerative disc disease), lumbar [M51.36]INVALID FOR* Internal hemorrhoids without mention of complic*INVALID FOR* Pain in both hands [M79.641, M79.642] INVALID FOR* Class 1 obesity due to excess calories without *INVALID FOR* Prescriptions ordered this encounter Disp Refills Start End NAPROXEN 500 MG TABLET 60 t* 0 07/02/2018 Route: ORAL Sig: Take 1 tablet by mouth twice daily as needed (for pain/inflammation). Take with food. Encounter Status:Closed by LALITAFEROZALANA on 07/02/18 PROGRESS Observed: 05/21/2018 Status: COMPLETED Source: [place] 12:36 PM [facility] REPOSITORY HNO ID: [id number] Author: Abel Pablo Service: (none) Author Type: Physician Type: Progress Notes Filed: 06/05/2018 7:59 AM Note Text: Patient presents with: Recheck: Follow up Imm/Inj: Flu Vaccine SUBJECTIVE: Moshe Zimmerman is a 63 year old year old gentleman here today for 3 month follow up appointment for review of medical conditions. Noted that had fallen and landed on outstretched hands and hit wrists; pain worse on right--hand and wrist was swollen, but better now. Still has CTS symptoms like before had surgery for CTS. Throbbing still. Current pain meds helped. Also helped for kidney stones. Noted was on Flomax prn before with Dr. Gonzalez. No adverse effects from pain meds noted. No OIC. Sometimes gets tightness in midchest and goes to both upper arms. Passes after breathes more easily. Twice in the past week. Happens while just sitting. Was less often. Had been falling asleep while reading and neck hurts. Not exertional CP that needs to rest for. Tolerates statin. PAST MEDICAL HISTORY Diagnosis Date - Displacement of lumbar intervertebral disc without myelopathy - Encounter for Zostavax administration 05/20/2015 done at [place] - Raynaud's syndrome - Sciatica - Tobacco abuse - Urinary calculus, unspecified Renal stones--calcium oxalate Current Outpatient Prescriptions: HYDROcodone-acetaminophen (NORCO) 5-325 mg per tablet Take 2 tablets by mouth twice daily as needed for Pain for up to 30 days.Earliest Fill Date: 05/05/18 sildenafil, antihypertensive, (REVATIO) 20 mg tablet Take 2 tablets by mouth once daily as needed. rosuvastatin (CRESTOR) 20 mg tablet Take 0.5 tablets by mouth daily at bedtime. Kywqxouucuo-Nbvlhbjqt-Hzh C-Mn (GLUCOSAMINE CHONDROITIN MAXSTR) 500-400 mg cap Take 1 capsule by mouth three times daily. Cholecalciferol, Vitamin D3, 1,000 unit cap Take 1 capsule by mouth once daily. THERAPEUTIC MULTIVITAMIN TAB Take one(1) tablet daily. HYDROcodone-acetaminophen (NORCO) 5-325 mg per tablet Take 2 tablets by mouth twice daily as needed for Pain for up to 30 days.Earliest Fill Date: 03/06/18 HYDROcodone-acetaminophen (NORCO) 5-325 mg per tablet Take 2 tablets by mouth twice daily as needed for Pain for up to 30 days.Earliest Fill Date: 04/05/18 No current facility-administered medications for this visit. Social History Marital status: Spouse name: Jia Years of education: Number of children: Occupational History Occupation Employer Comment [employer] Social History Main Topics Smoking status: Current Every Day Smoker Packs/day: 2.00 Years: 40.00 Types: Cigarettes Smokeless tobacco: Current User Alcohol use: No Drug use: No OBJECTIVE: BP 128/74 Pulse 64 Resp 16 Wt 98.9 kg (218 lb) BMI 30.84 kg/m? Patient is alert, oriented times 3, no apparent distress, affect is bright, reactive. Last 5 Encounter BP Readings: Date: BP: 05/21/2018 128/74 02/19/2018 130/64 12/04/2017 138/88 08/21/2017 136/86 05/23/2017 134/72 Last 5 Encounter Wt Readings: Date: Wt: 05/21/2018 98.9 kg (218 lb) 02/19/2018 100.7 kg (222 lb) 12/04/2017 98.9 kg (218 lb) 08/21/2017 99.3 kg (219 lb) 05/23/2017 96.2 kg (212 lb) Heart: Regular rate, rhythm, no murmurs, gallops, rubs. Lungs: Clear to auscultation, bilaterally, breathing non labored. Ext: No cyanosis, clubbing, or edema. Component Latest Ref Rng AND Units 01/12/2017 03/16/2018 WBC 3.70 - 11.00 k/uL 6.98 9.05 RBC 4.20 - 6.00 m/uL 5.14 4.94 Hemoglobin 13.0 - 17.0 g/dL 14.7 14.9 Hematocrit 39.0 - 51.0 % 46.7 45.2 MCV 80.0 - 100.0 fL 90.9 91.5 MCH 26.0 - 34.0 pG 28.6 30.2 MCHC 30.5 - 36.0 g/dL 31.5 33.0 RDW-CV 11.5 - 15.0 % 13.6 13.2 Platelet Count 150 - 400 k/uL 340 300 MPV 9.0 - 12.7 fL 10.2 10.6 Neut% % 60.7 Abs Neut (ANC) 1.45 - 7.50 k/uL 4.24 Lymph% % 27.8 Abs Lymph 1.00 - 4.00 k/uL 1.94 Weakley% % 8.5 Abs Weakley 0.00 - 0.86 k/uL 0.59 Eosin% % 2.7 Abs Eosin 0.00 - 0.45 k/uL 0.19 Baso% % 0.3 Abs Baso 0.00 - 0.10 k/uL 0.02 Nucleated Reds 0 /100 WBC 0.0 NRBC 0 /100 WBC 0 Absolute nRBC <0.01 k/uL 0.00 <0.01 Diff Type Auto Diff Protein, Total 6.3 - 8.0 g/dL 6.4 6.9 Albumin 3.9 - 4.9 g/dL 4.0 3.9 Calcium 8.5 - 10.2 mg/dL 9.3 9.3 Bilirubin, Total 0.2 - 1.3 mg/dL 0.4 0.4 Alkaline Phosphatase 36 - 108 U/L 120 (H) 100 AST 14 - 40 U/L 29 21 Glucose 74 - 99 mg/dL 101 (H) 115 (H) BUN 9 - 24 mg/dL 15 11 Creatinine 0.73 - 1.22 mg/dL 0.97 0.71 (L) Sodium 136 - 144 mmol/L 141 138 Potassium 3.7 - 5.1 mmol/L 4.5 4.4 Chloride 97 - 105 mmol/L 101 103 CO2 22 - 30 mmol/L 26 25 Anion Gap 9 - 18 mmol/L 14 10 ALT 10 - 54 U/L 17 15 eGFR- >60 >60 eGFR-All Other Races . >60 >60 Triglyceride <150 mg/dL 59 51 Cholesterol, Total <200 mg/dL 169 180 HDL Cholesterol >39 mg/dL 49 52 VLDL Cholesterol <30 mg/dL 12 10 LDL Cholesterol <100 mg/dL 108 118 (H) Fasting Time hrs 10 11 TC:HDL Ratio <5.10 3.45 3.46 LDL:HDL Ratio <2.54 2.20 2.27 Non HDL Cholesterol <130 mg/dL 120 128 Hemoglobin A1C 4.3 - 5.6 % 5.7 (H) Estimated Average Glucose mg/dL 117 ASSESSMENT AND PLAN: Encounter Diagnosis ICD-10-CM 1. Carpal tunnel syndrome of right wrist G56.01 is left handed 2. Mixed hyperlipidemia E78.2 LIPID PANEL BASIC 3. IFG (impaired fasting glucose) R73.01 HGB A1C BASIC METABOLIC PNL 4. Chronic bilateral low back pain with bilateral sciatica M54.42 HYDROcodone-acetaminophen (NORCO) 5-325 mg per tablet M54.41 HYDROcodone-acetaminophen (NORCO) 5-325 mg per tablet G89.29 HYDROcodone-acetaminophen (NORCO) 5-325 mg per tablet 5. DDD (degenerative disc disease), lumbar M51.36 HYDROcodone-acetaminophen (NORCO) 5-325 mg per tablet HYDROcodone-acetaminophen (NORCO) 5-325 mg per tablet HYDROcodone-acetaminophen (NORCO) 5-325 mg per tablet 6. Tobacco use disorder F17.200 7. Need for vaccination Z23 INFLUENZA VACCINE QUADRIVALENT AGE 3 YRS PLUS + IM ASSESSMENT/PLAN: 1. Carpal tunnel syndrome of right wrist - ICD9: 354.0, ICD10: G56.01 (primary diagnosis) Discussed management of CTS. Refer to ortho as needed but expect symptoms to resolve since current symptoms due to injury from fall and swelling should resolve. 2. Mixed hyperlipidemia - ICD9: 272.2, ICD10: E78.2 - good control - Continue current medication. - Encouraged following a low fat, low cholesterol diet. - Discussed the benefits of regular aerobic exercise and weight loss. - LIPID PANEL BASIC 3. IFG (impaired fasting glucose) - ICD9: 790.21, ICD10: R73.01 Needs to keep working on diet and exercise with lifestyle changes for effective weight loss as well as prevention of DM, and control of BP and lipids. - HGB A1C - BASIC METABOLIC PNL 4. Chronic bilateral low back pain with bilateral sciatica - ICD9: 724.2, 724.3, 338.29, ICD10: M54.42, M54.41, G89.29 Chronic low back pain - Patient given instructions use of medications as ordered, intermittent rest and weight loss - HYDROCODONE 5 MG-ACETAMINOPHEN 325 MG TABLET - HYDROCODONE 5 MG-ACETAMINOPHEN 325 MG TABLET - HYDROCODONE 5 MG-ACETAMINOPHEN 325 MG TABLET 5. DDD (degenerative disc disease), lumbar - ICD9: 722.52, ICD10: M51.36 Chronic low back pain - Patient given instructions as noted above - HYDROCODONE 5 MG-ACETAMINOPHEN 325 MG TABLET - HYDROCODONE 5 MG-ACETAMINOPHEN 325 MG TABLET - HYDROCODONE 5 MG-ACETAMINOPHEN 325 MG TABLET 6. Tobacco use disorder - ICD9: 305.1, ICD10: F17.200 - Cessation encouraged. 7. Need for vaccination - ICD9: V05.9, ICD10: Z23 - INFLUENZA VACCINE QUADRIVALENT AGE 3 YRS PLUS + IM Above issues addressed with patient. Patient involved in shared decision making for management of medical issues. History and medications reviewed. Epic updated as needed Refills taken care of and meds adjusted as indicated after reviewed history, exam and labs. Health Maintenance reviewed. Updated record and/or ordered tests as recorded. Encouraged on efforts at healthy diet and regular exercise and adequate sleep. Stable with pain control. No signs of diversion or abuse of medication(s); no adverse effects. Continue present management. PDMP website checked and validated. All prescriptions have been APPROPRIATELY filled. No suspicious activity was identified. 06/05/2018 by Abel Pablo MD The majority of the visit was spent counseling and/or coordinating care for the patient. Xcao-nm-bwce time was at least 25 minutes. Abel Pablo MD PROGRESS Observed: 05/21/2018 Status: COMPLETED Source: [place] 12:20 PM [facility] REPOSITORY HNO ID: [id number] Author: Rebeka Perez LPN Service: (none) Author Type: (none) Type: Progress Notes Filed: 06/05/2018 7:59 AM Note Text: 63 year old male here for INACTIVATED INFLUENZA VACCINE. 4008-1037 Season Patient is identified by name and date of : Yes [] CONTRAINDICATIONS color enhanced section Age less than 6 months? No Allergy to eggs, chicken, chicken feathers, or chicken dander? No Allergy to thimerosal (a preservative) or formaldehyde, gelatin? No History of severe reaction to any vaccine component or a previous dose of influenza vaccination? No History of Guillain-Newton Syndrome within 6 weeks after a previous influenza vaccine? No Patient is not moderately or severely ill? No Current temperature greater or equal to 100.4F? No History of Bone Marrow Transplant prior 6 months or solid organ transplant in the past 3 months ? No History of fainting after a prior injection or medical procedure? No- ? If patient has fainted in the past, the CDC recommends sitting or lying down for 15 minutes after the vaccination. [] VERIFICATION color enhanced section Was the answer Yes for any of the above contraindications? No contraindications present. Acceptable to proceed with vaccine. Patient/guardian agrees the above answers are true to the best of their knowledge? Yes Flu vaccine information sheet given? Yes See immunization activity in [facility] for details of immunizations adminstered today. Patient age: [age] year old For The 4455-5769 Flu Season 6-35 months old: Fluzone 0.25 ml - IM (Preservative Free) 3 years of age: Fluzone 0.5 ml - IM (Preservative Free) 3 years and older: Fluzone 0.5 ml- IM-(with Preservatives) 65+ years old: 2-49 years old Fluzone High-Dose 0.5 ml - IM (Preservative Free) FLUMIST- intranasal REMEMBER: If patient is less than 9 years of age and this is the first vaccine of Influenza to be received in any flu season, they should receive a second dose in one months time. CNOV Observed: 05/21/2018 Status: COMPLETED Source: [place] 11:20 AM [facility] REPOSITORY Office Visit (INTMWS) ELSIEMOSHE GAMINO ([id number]) 1955 M Date Time Provider Department 05/21/18 11:20 AM ABEL PABLO During your visit today, we recorded the following information about you: Pulse Respiration Blood pressure Weight 64/minute 16/minute 128/74 98.9 kg Rebeka Perez ARNULFO 06/05/2018 7:59 AM Signed 63 year old male here for INACTIVATED INFLUENZA VACCINE. 6983-3714 Season Patient is identified by name and date of : Yes [] CONTRAINDICATIONS color enhanced section Age less than 6 months? No Allergy to eggs, chicken, chicken feathers, or chicken dander? No Allergy to thimerosal (a preservative) or formaldehyde, gelatin? No History of severe reaction to any vaccine component or a previous dose of influenza vaccination? No History of Guillain-Newton Syndrome within 6 weeks after a previous influenza vaccine? No Patient is not moderately or severely ill? No Current temperature greater or equal to 100.4F? No History of Bone Marrow Transplant prior 6 months or solid organ transplant in the past 3 months ? No History of fainting after a prior injection or medical procedure? No- ? If patient has fainted in the past, the CDC recommends sitting or lying down for 15 minutes after the vaccination. [] VERIFICATION color enhanced section Was the answer Yes for any of the above contraindications? No contraindications present. Acceptable to proceed with vaccine. Patient/guardian agrees the above answers are true to the best of their knowledge? Yes Flu vaccine information sheet given? Yes See immunization activity in [facility] for details of immunizations adminstered today. Patient age: [age] year old For The 4194-4705 Flu Season 6-35 months old: Fluzone 0.25 ml - IM (Preservative Free) 3 years of age: Fluzone 0.5 ml - IM (Preservative Free) 3 years and older: Fluzone 0.5 ml- IM-(with Preservatives) 65+ years old: 2-49 years old Fluzone High-Dose 0.5 ml - IM (Preservative Free) FLUMIST- intranasal REMEMBER: If patient is less than 9 years of age and this is the first vaccine of Influenza to be received in any flu season, they should receive a second dose in one months time. Abel Pablo MD 06/05/2018 7:59 AM Signed Patient presents with: Recheck: Follow up Imm/Inj: Flu Vaccine SUBJECTIVE: Moshe Zimmerman is a 63 year old year old gentleman here today for 3 month follow up appointment for review of medical conditions. Noted that had fallen and landed on outstretched hands and hit wrists; pain worse on right--hand and wrist was swollen, but better now. Still has CTS symptoms like before had surgery for CTS. Throbbing still. Current pain meds helped. Also helped for kidney stones. Noted was on Flomax prn before with Dr. Gonzalez. No adverse effects from pain meds noted. No OIC. Sometimes gets tightness in midchest and goes to both upper arms. Passes after breathes more easily. Twice in the past week. Happens while just sitting. Was less often. Had been falling asleep while reading and neck hurts. Not exertional CP that needs to rest for. Tolerates statin. PAST MEDICAL HISTORY Diagnosis Date - Displacement of lumbar intervertebral disc without myelopathy - Encounter for Zostavax administration 05/20/2015 done at [place] - Raynaud's syndrome - Sciatica - Tobacco abuse - Urinary calculus, unspecified Renal stones--calcium oxalate Current Outpatient Prescriptions: HYDROcodone-acetaminophen (NORCO) 5-325 mg per tablet Take 2 tablets by mouth twice daily as needed for Pain for up to 30 days.Earliest Fill Date: 05/05/18 sildenafil, antihypertensive, (REVATIO) 20 mg tablet Take 2 tablets by mouth once daily as needed. rosuvastatin (CRESTOR) 20 mg tablet Take 0.5 tablets by mouth daily at bedtime. Rrhamfzmayr-Grthqvwqk-Hdt C-Mn (GLUCOSAMINE CHONDROITIN MAXSTR) 500-400 mg cap Take 1 capsule by mouth three times daily. Cholecalciferol, Vitamin D3, 1,000 unit cap Take 1 capsule by mouth once daily. THERAPEUTIC MULTIVITAMIN TAB Take one(1) tablet daily. HYDROcodone-acetaminophen (NORCO) 5-325 mg per tablet Take 2 tablets by mouth twice daily as needed for Pain for up to 30 days.Earliest Fill Date: 03/06/18 HYDROcodone-acetaminophen (NORCO) 5-325 mg per tablet Take 2 tablets by mouth twice daily as needed for Pain for up to 30 days.Earliest Fill Date: 04/05/18 No current facility-administered medications for this visit. Social History Marital status: Spouse name: Jia Years of education: Number of children: Occupational History Occupation Employer Comment [employer] Social History Main Topics Smoking status: Current Every Day Smoker Packs/day: 2.00 Years: 40.00 Types: Cigarettes Smokeless tobacco: Current User Alcohol use: No Drug use: No OBJECTIVE: BP 128/74 Pulse 64 Resp 16 Wt 98.9 kg (218 lb) BMI 30.84 kg/m? Patient is alert, oriented times 3, no apparent distress, affect is bright, reactive. Last 5 Encounter BP Readings: Date: BP: 05/21/2018 128/74 02/19/2018 130/64 12/04/2017 138/88 08/21/2017 136/86 05/23/2017 134/72 Last 5 Encounter Wt Readings: Date: Wt: 05/21/2018 98.9 kg (218 lb) 02/19/2018 100.7 kg (222 lb) 12/04/2017 98.9 kg (218 lb) 08/21/2017 99.3 kg (219 lb) 05/23/2017 96.2 kg (212 lb) Heart: Regular rate, rhythm, no murmurs, gallops, rubs. Lungs: Clear to auscultation, bilaterally, breathing non labored. Ext: No cyanosis, clubbing, or edema. Component Latest Ref Rng AND Units 01/12/2017 03/16/2018 WBC 3.70 - 11.00 k/uL 6.98 9.05 RBC 4.20 - 6.00 m/uL 5.14 4.94 Hemoglobin 13.0 - 17.0 g/dL 14.7 14.9 Hematocrit 39.0 - 51.0 % 46.7 45.2 MCV 80.0 - 100.0 fL 90.9 91.5 MCH 26.0 - 34.0 pG 28.6 30.2 MCHC 30.5 - 36.0 g/dL 31.5 33.0 RDW-CV 11.5 - 15.0 % 13.6 13.2 Platelet Count 150 - 400 k/uL 340 300 MPV 9.0 - 12.7 fL 10.2 10.6 Neut% % 60.7 Abs Neut (ANC) 1.45 - 7.50 k/uL 4.24 Lymph% % 27.8 Abs Lymph 1.00 - 4.00 k/uL 1.94 Weakley% % 8.5 Abs Weakley 0.00 - 0.86 k/uL 0.59 Eosin% % 2.7 Abs Eosin 0.00 - 0.45 k/uL 0.19 Baso% % 0.3 Abs Baso 0.00 - 0.10 k/uL 0.02 Nucleated Reds 0 /100 WBC 0.0 NRBC 0 /100 WBC 0 Absolute nRBC <0.01 k/uL 0.00 <0.01 Diff Type Auto Diff Protein, Total 6.3 - 8.0 g/dL 6.4 6.9 Albumin 3.9 - 4.9 g/dL 4.0 3.9 Calcium 8.5 - 10.2 mg/dL 9.3 9.3 Bilirubin, Total 0.2 - 1.3 mg/dL 0.4 0.4 Alkaline Phosphatase 36 - 108 U/L 120 (H) 100 AST 14 - 40 U/L 29 21 Glucose 74 - 99 mg/dL 101 (H) 115 (H) BUN 9 - 24 mg/dL 15 11 Creatinine 0.73 - 1.22 mg/dL 0.97 0.71 (L) Sodium 136 - 144 mmol/L 141 138 Potassium 3.7 - 5.1 mmol/L 4.5 4.4 Chloride 97 - 105 mmol/L 101 103 CO2 22 - 30 mmol/L 26 25 Anion Gap 9 - 18 mmol/L 14 10 ALT 10 - 54 U/L 17 15 eGFR- >60 >60 eGFR-All Other Races . >60 >60 Triglyceride <150 mg/dL 59 51 Cholesterol, Total <200 mg/dL 169 180 HDL Cholesterol >39 mg/dL 49 52 VLDL Cholesterol <30 mg/dL 12 10 LDL Cholesterol <100 mg/dL 108 118 (H) Fasting Time hrs 10 11 TC:HDL Ratio <5.10 3.45 3.46 LDL:HDL Ratio <2.54 2.20 2.27 Non HDL Cholesterol <130 mg/dL 120 128 Hemoglobin A1C 4.3 - 5.6 % 5.7 (H) Estimated Average Glucose mg/dL 117 ASSESSMENT AND PLAN: Encounter Diagnosis ICD-10-CM 1. Carpal tunnel syndrome of right wrist G56.01 is left handed 2. Mixed hyperlipidemia E78.2 LIPID PANEL BASIC 3. IFG (impaired fasting glucose) R73.01 HGB A1C BASIC METABOLIC PNL 4. Chronic bilateral low back pain with bilateral sciatica M54.42 HYDROcodone-acetaminophen (NORCO) 5-325 mg per tablet M54.41 HYDROcodone-acetaminophen (NORCO) 5-325 mg per tablet G89.29 HYDROcodone-acetaminophen (NORCO) 5-325 mg per tablet 5. DDD (degenerative disc disease), lumbar M51.36 HYDROcodone-acetaminophen (NORCO) 5-325 mg per tablet HYDROcodone-acetaminophen (NORCO) 5-325 mg per tablet HYDROcodone-acetaminophen (NORCO) 5-325 mg per tablet 6. Tobacco use disorder F17.200 7. Need for vaccination Z23 INFLUENZA VACCINE QUADRIVALENT AGE 3 YRS PLUS + IM ASSESSMENT/PLAN: 1. Carpal tunnel syndrome of right wrist - ICD9: 354.0, ICD10: G56.01 (primary diagnosis) Discussed management of CTS. Refer to ortho as needed but expect symptoms to resolve since current symptoms due to injury from fall and swelling should resolve. 2. Mixed hyperlipidemia - ICD9: 272.2, ICD10: E78.2 - good control - Continue current medication. - Encouraged following a low fat, low cholesterol diet. - Discussed the benefits of regular aerobic exercise and weight loss. - LIPID PANEL BASIC 3. IFG (impaired fasting glucose) - ICD9: 790.21, ICD10: R73.01 Needs to keep working on diet and exercise with lifestyle changes for effective weight loss as well as prevention of DM, and control of BP and lipids. - HGB A1C - BASIC METABOLIC PNL 4. Chronic bilateral low back pain with bilateral sciatica - ICD9: 724.2, 724.3, 338.29, ICD10: M54.42, M54.41, G89.29 Chronic low back pain - Patient given instructions use of medications as ordered, intermittent rest and weight loss - HYDROCODONE 5 MG-ACETAMINOPHEN 325 MG TABLET - HYDROCODONE 5 MG-ACETAMINOPHEN 325 MG TABLET - HYDROCODONE 5 MG-ACETAMINOPHEN 325 MG TABLET 5. DDD (degenerative disc disease), lumbar - ICD9: 722.52, ICD10: M51.36 Chronic low back pain - Patient given instructions as noted above - HYDROCODONE 5 MG-ACETAMINOPHEN 325 MG TABLET - HYDROCODONE 5 MG-ACETAMINOPHEN 325 MG TABLET - HYDROCODONE 5 MG-ACETAMINOPHEN 325 MG TABLET 6. Tobacco use disorder - ICD9: 305.1, ICD10: F17.200 - Cessation encouraged. 7. Need for vaccination - ICD9: V05.9, ICD10: Z23 - INFLUENZA VACCINE QUADRIVALENT AGE 3 YRS PLUS + IM Above issues addressed with patient. Patient involved in shared decision making for management of medical issues. History and medications reviewed. Epic updated as needed Refills taken care of and meds adjusted as indicated after reviewed history, exam and labs. Health Maintenance reviewed. Updated record and/or ordered tests as recorded. Encouraged on efforts at healthy diet and regular exercise and adequate sleep. Stable with pain control. No signs of diversion or abuse of medication(s); no adverse effects. Continue present management. PDMP website checked and validated. All prescriptions have been APPROPRIATELY filled. No suspicious activity was identified. 06/05/2018 by Abel Pablo MD The majority of the visit was spent counseling and/or coordinating care for the patient. Lbwj-ne-dwsp time was at least 25 minutes. Abel Pablo MD Referring Provider: ABEL PABLO [[id number]] Allergies As of Date: 05/21/2018 Noted Allergy Reaction LIPITOR (ATORVASTATIN CALCIUM) 06/07/2005 Comments: muscle cramps LODINE (ETODOLAC) 02/18/2008 Comments: depression WELLBUTRIN (BUPROPION HCL) 06/07/2005 Date Reviewed: 05/21/2018 Reviewed by: Rebeka Perez LPN - Fully Assessed Reason for Visit: Recheck [92] Cmt: Follow up Imm/Inj [58] Cmt: Flu Vaccine Reason For Visit History Recorded Primary Visit Diagnosis:Carpal tunnel syndrome of right wrist [G56.01] Comment:is left handed Other Visit Diagnoses:Mixed hyperlipidemia [E78.2] IFG (impaired fasting glucose) [R73.01] Chronic bilateral low back pain with bilateral sciatica [M54.42, M54.41, G89.29] DDD (degenerative disc disease), lumbar [M51.36] Tobacco use disorder [F17.200] Need for vaccination [Z23] Order(s):INFLUENZA VACCINE QUADRIVALENT AGE 3 YRS PLUS + IM [[id number]] Order #: [id number] tamsulosin ER (FLOMAX) 0.4 mg capTake 1 capsule by mouth daily at bedtime.Disp: 30 capsuleRfl: 1 HGB A1C [[id number]] Order #: [id number] FUTURE BASIC METABOLIC PNL [SQBMP] Order #: [id number] FUTURE LIPID PANEL BASIC [SQLIPB] Order #: [id number] FUTURE HYDROcodone-acetaminophen (NORCO) 5-325 mg per tabletTake 2 tablets by mouth twice daily as needed for Pain for up to 30 days. Earliest Fill Date: 06/04/18Disp: 120 tabletRfl: 0 [START ON 07/04/2018] HYDROcodone-acetaminophen (NORCO) 5-325 mg per tabletTake 2 tablets by mouth twice daily as needed for Pain for up to 30 days. Earliest Fill Date: 07/04/18Disp: 120 tabletRfl: 0 [START ON 08/03/2018] HYDROcodone-acetaminophen (NORCO) 5-325 mg per tabletTake 2 tablets by mouth twice daily as needed for Pain for up to 30 days. Earliest Fill Date: 08/03/18Disp: 120 tabletRfl: 0 Prescriptions as of 05/21/2018 Sig: HYDROCODONE 5 MG-ACETAMINOPHE* Take 2 tablets by mouth twice* HYDROCODONE 5 MG-ACETAMINOPHE* Take 2 tablets by mouth twice* HYDROCODONE 5 MG-ACETAMINOPHE* Take 2 tablets by mouth twice* SILDENAFIL (ANTIHYPERTENSIVE)* Take 2 tablets by mouth once * ROSUVASTATIN 20 MG TABLET Take 0.5 tablets by mouth calvin* WQJIWXGJKWZ-SXTPIYSRL-GSL C-M* Take 1 capsule by mouth three* CHOLECALCIFEROL (VITAMIN D3) * Take 1 capsule by mouth once * THERAPEUTIC MULTIVITAMIN TABL* Take one(1) tablet daily. TAMSULOSIN 0.4 MG CAPSULE Take 1 capsule by mouth daily* HYDROCODONE 5 MG-ACETAMINOPHE* Take 2 tablets by mouth twice* HYDROCODONE 5 MG-ACETAMINOPHE* Take 2 tablets by mouth twice* Problem List As Of Date 05/21/2018 Noted Resolved RAYNAUD'S SYNDROME [I73.00] Displacement of lumbar intervertebral disc with* More... SCIATICA [M54.30] URINARY CALCULUS NOS [N20.9] More... 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] INVALID FOR* TOBACCO USE DISORDER [F17.200] INVALID FOR* Tendonitis [M77.9] INVALID FOR* Hemorrhoids [K64.9] INVALID FOR* Blood in stool [K92.1] INVALID FOR* Duodenal ulcer due to Helicobacter pylori [K26.*INVALID FOR* Lumbar stenosis with neurogenic claudication [M*INVALID FOR* Meralgia paresthetica of left side [G57.12] INVALID FOR* ED (erectile dysfunction) [N52.9] INVALID FOR* Chronic low back pain [M54.5, G89.29] INVALID FOR* DDD (degenerative disc disease), lumbar [M51.36]INVALID FOR* Internal hemorrhoids without mention of complic*INVALID FOR* Pain in both hands [M79.641, M79.642] INVALID FOR* Class 1 obesity due to excess calories without *INVALID FOR* Prescriptions ordered this encounter Disp Refills Start End TAMSULOSIN 0.4 MG CAPSULE 30 c* 1 05/21/2018 Route: ORAL Sig: Take 1 capsule by mouth daily at bedtime. HYDROCODONE 5 MG-ACETAMINOPHEN 325 M* 120 * 0 06/04/2018 07/04/2018 Class: Print RX Route: ORAL Sig: Take 2 tablets by mouth twice daily as needed for Pain for up to 30 days. Earliest Fill Date: 06/04/18 HYDROCODONE 5 MG-ACETAMINOPHEN 325 M* 120 * 0 07/04/2018 08/03/2018 Class: Print RX Route: ORAL Sig: Take 2 tablets by mouth twice daily as needed for Pain for up to 30 days. Earliest Fill Date: 07/04/18 HYDROCODONE 5 MG-ACETAMINOPHEN 325 M* 120 * 0 08/03/2018 09/02/2018 Class: Print RX Route: ORAL Sig: Take 2 tablets by mouth twice daily as needed for Pain for up to 30 days. Earliest Fill Date: 08/03/18 Medications Discontinued During This Encounter HYDROcodone-acetaminophen (NORCO) 5-* 120 * 0 05/05/2018 05/21/2018 Class: Print RX Route: ORAL Sig: Take 2 tablets by mouth twice daily as needed for Pain for up to 30 days. Earliest Fill Date: 05/05/18 Disc: Reason for discontinue is not on file. Disposition: Return for Add the next 3 months follow up. Follow-up and Disposition History Recorded Encounter Status:Closed by ABEL PABLO MD on 06/05/18 TOXICOLOGY SCREEN,UR Collected: 03/16/2018 Status: F Source: [place] 8:41 AM [facility] [place] REPOSITORY TYPE CODE TESTS RESULT OUT OF REFERENCE UNITS RANGE LAB UPCP2 Negative Negative Phencyclidin e, Urine Result Comment: Cutoff threshold at 25 ng/mL. LAB UBENZ2 Negative Benzodiazepines, Ur Negative Result Comment: Cutoff threshold at 200 ng/mL. LAB UCOC2 Negative Cocaine, Negative Urine Result Comment: Cutoff threshold at 300 ng/mL. LAB UAMPH2 Negative Amphetamines, Urine Negative Result Comment: Cutoff threshold at 1000 ng/mL. LAB UTHC2 Negative Cannabinoids, Urine Negative Result Comment: Cutoff threshold at 50 ng/mL. LAB UOPI2 Negative Abnormal Preliminary Alert Opiates, Urine positive. Result Comment: Cutoff threshold at 300 ng/mL. LAB UBARB2 Negative Barbiturates, Urine Negative Result Comment: Cutoff threshold at 200 ng/mL. LAB UETOH <11 mg/dL <11 Ethanol, Urine LAB UOXYC Negative Oxycodone, Negative Urine Result Comment: Cutoff threshold at 100 ng/mL. Comment: Immunoassay screen only. Cross reactivity with other substances can occur with immunoassay screening. Detection of any drug(s) in this urine toxicology panel is presumptive only. These tests are for med ical purposes only and should not be used for compliance monitoring, legal, or forensic use. Samples should be within normal physiological conditions (e.g. pH). This assay does not include adulteration/specimen validity testing. In clinical settings, confirmatory testing is at the practitioner's discretion [1]. If clinically indicated, confirmation by high specificity, quantitative methodology, which includes adulteration/spec imen validity testing, may be requested on the same specimen through Client Services ([phone]) if contacted within 48 hours of initial testing. [1]Substance Abuse and Mental Health Services Administration (2012). Clinical Drug Testing in Primary Care Technical Assistance Publication Series 32. Department of Health and Human Services, [place], p.10. These tests were developed and their performance characteristics determined by [facility] ( [facility]). They have not been cleared or a pproved by the FDA. [facility] is regulated under CLIA as qualified to perform high complexity testing. These tests are used for clinical purposes. They should not be regarded as investigational or for research. Performed By: #### UTOX2, UQNTPP #### [facility] [address] [address] QUANT PAIN PANEL, Collected: 03/16/2018 Status: F Source: [place] UR 8:41 AM [facility] REPOSITORY TYPE CODE TESTS RESULT OUT OF REFERENCE UNITS RANGE LAB UQCANN <16 ng/mL <16 Cannabinoid, Urine Result Comment: Tetrahydrocannabinol carboxylic acid (THCA) is a metabolite of qagrk-9-exdkdjxbeemmftgpuawp which is the main active component of marijuana. LAB UQBNZL <24 ng/mL Benzoylecognine, Ur <24 Result Comment: Benzoylecognine is a metabolite of cocaine. LAB UQACMR <5 ng/mL 6-Acetylmorphine, Ur <5 Result Comment: 6-RADHIKA (6-monoacetylmorphine, also known as 6-acetylmorphine) is a unique metabolite of heroin. Presence of 6-RADHIKA indicates use of heroin. 6-RADHIKA is further metabolized to morphine and absence of 6-RADHIKA does not rule out the use of heroin. LAB UQAMPH <5 ng/mL Amphetamine, Urine <5 LAB UQMAMP <8 ng/mL Methamphetamine, Ur <8 LAB UQBUPR <20 ng/mL Buprenorphine, Ur <20 LAB UQNBUP <20 ng/mL Norbuprenorphine, Ur <20 Result Comment: Norbuprenorphine is the primary active metabolite of buprenorphine. LAB UQMTHD <16 ng/mL Methadone, Urine <16 LAB UQEDDP <6 ng/mL EDDP, Urine <6 Result Comment: EDDP is a metabolite of methadone. LAB UQTRAM <25 ng/mL Tramadol, Urine <25 LAB UQDTRM <20 ng/mL Desmethyltramadol <20 ,Ur Result Comment: Desmethyltramadol is a metabolite of tramadol. LAB UQFNTL <6 ng/mL Fentanyl, Urine <6 LAB UQNFTL <6 ng/mL Norfentanyl, Urine <6 Result Comment: Norfentanyl is a metabolite of fentanyl. LAB UQCODE <11 ng/mL Codeine, Urine <11 LAB UQMORP <10 ng/mL Morphine, Urine <10 Result Comment: Morphine is a metabolite of codeine and heroin. LAB UQDCDN <5 ng/mL Dihydrocodeine, Ur High 406 Result Comment: The presence of dihydrocodeine may arise from dihydrocodeine containing drugs or from the metabolism of hydrocodone. LAB UQHCOD <8 ng/mL Hydrocodone, High Urine 740 Result Comment: Hydrocodone may arise from hydrocodone containing drugs or by metabolism of dihydrocodeine. Hydrocodone is also a minor metabolite of codeine, and may be detected with elevated levels of codeine. Hydrocodone is metabolized to hydromorphone and dihydrocodeine. LAB UQOXYC <10 ng/mL Oxycodone, Urine <10 LAB UQHMOR <5 ng/mL High Hydromorphone, Ur 2267 Result Comment: Hydromorphone may arise from hydromorphone containing drugs or by metabolism of morphine and hydrocodone. LAB UQOXYM <5 ng/mL Oxymorphone, High Urine 13 Result Comment: Oxymorphone may arise from oxymorphone containing drugs or by metabolism os oxycodone. LAB UQCREA 46.8-314.5 mg/dL Creatinine, 185.8 Urine LAB UQPH 4.5-8.0 pH, Urine 7.8 LAB UQSPGR 1.002-1.030 Specific 1.011 [place],Ur LAB UQOXID <200 mg/L Oxidants, <38 Urine LAB SVNI01 <51 mg/L <50 NITRITES,URINE LAB SVCH01 <50 mg/L <10 CHROMATE,URINE LAB SVSQ01 Specimen QUALITY,URINE quality results within acceptable limits. LAB UQNOTE Note This test is for Medical use only. Result Comment: This test was developed and its performance characteristics determined by [facility] ([facility]). It has not been cleared or approved by the FDA. [facility] is regulated under CLIA as qualified to perform high-complexity testing. This test is used for clinical purposes. It should not be regarded as investigational or for research. Performed By: #### UTOX2, UQNTPP #### [facility] [address] [place], [place] [address] CBC Collected: 03/16/2018 Status: F Source: [place] 8:29 [facility] REPOSITORY TYPE CODE TESTS RESULT OUT OF REFERENCE UNITS RANGE LAB WBC 3.70-11.00 k/uL WBC 9.05 LAB RBC 4.20-6.00 m/uL RBC 4.94 LAB HGB 13.0-17.0 g/dL Hemoglobin 14.9 LAB HCT 39.0-51.0 % Hematocrit 45.2 LAB MCV 80.0-100.0 fL MCV 91.5 LAB MCH 26.0-34.0 pG MCH 30.2 LAB MCHC 30.5-36.0 g/dL MCHC 33.0 LAB RDWCV 11.5-15.0 % RDW-CV 13.2 LAB PLTCT 150-400 k/uL Platelet Count 300 LAB MPV 9.0-12.7 fL MPV 10.6 LAB ABSNUC <0.01 k/uL Absolute nRBC <0.01 Performed By: #### CBC, CMP, LIPB, HBA1C #### [facility] [employer] [address] [place], [place] [address] COMP METABOLIC PANEL Collected: 03/16/2018 Status: F Source: [place] 8:29 [facility] REPOSITORY TYPE CODE TESTS RESULT OUT OF REFERENCE UNITS RANGE LAB TP 6.3-8.0 g/dL Protein, Total 6.9 LAB ALB 3.9-4.9 g/dL Albumin 3.9 LAB CA 8.5-10.2 mg/dL Calcium, Total 9.3 LAB TBIL 0.2-1.3 mg/dL Bilirubin, Total 0.4 LAB ALKP 36-108 U/L Alkaline Phosphatase 100 LAB AST 14-40 U/L AST 21 LAB GLU 74-99 mg/dL Glucose High 115 Result Comment: The [place] [employer] (ADA) provides guidance for cutoff values for fasting glucose and random glucose. The ADA defines fasting as no caloric intake for at least 8 hours. Fas ting plasma glucose results between 100 to 125 mg/dL indicate increased risk for diabetes (prediabetes). Fasting plasma glucose results greater than or equal to 126 mg/dL meet the criteria for diagnosis of diabetes. In the absence of unequivocal hyperglycemia, results should be confirmed by repeat testing. In a patient with classic symptoms of hyperglycemia or hyperglycemic crisis, random plasma glucose results greater than or equal to 200 mg/dL meet the criteria for diagnosis of diabetes. Reference: Standards of Medical Care in Diabetes 2016, [place] [employer]. Diabetes Care. 2016.39(Suppl 1). LAB BUN 9-24 mg/dL BUN 11 LAB CRET 0.73-1.22 mg/dL Creatinine Low 0.71 LAB NA 136-144 mmol/L Sodium 138 LAB K 3.7-5.1 mmol/L Potassium 4.4 LAB CL 97-105 mmol/L Chloride 103 LAB CO2 22-30 mmol/L CO2 25 LAB AGAP 9-18 mmol/L Anion Gap 10 LAB ALT 10-54 U/L ALT 15 LAB GFRAA eGFR- Amer. >60 LAB GFRNAA . eGFR-All Other Races >60 Result Comment: eGFR (Estimated GFR) Units of measure: mL/min/1.73 meters squared eGFR is derived from the reexpressed MDRD Study equation using the following parameters: serum creatinine, age, gender and race. The creatinine assay has been calibrated to be traceable to IDMS. An eGFR <60 mL/min/1.73m2 for >3 months is consistent with chronic kidney disease. Refer to KDOQI guidelines for clinical interpretation. In patients with unstable renal function, e.g. those with acute kidney injury, the eGFR may not accurately reflect actual GFR. Performed By: #### CBC, CMP, LIPB, HBA1C #### [facility] [address] [address] LIPID PANEL, BASIC Collected: 03/16/2018 Status: F Source: [place] 8:29 AM [facility] REPOSITORY TYPE CODE TESTS RESULT OUT OF REFERENCE UNITS RANGE LAB CHOL <200 mg/dL Cholesterol 180 Result Comment: <200 mg/dL, Desirable 200-239 mg/dL, Borderline high >239 mg/dL, High LAB TRIGLY <150 mg/dL Triglyceride 51 Result Comment: <150 mg/dL, Normal 150-199 mg/dL, Borderline high 200-499 mg/dL, High >499 mg/dL, Very high LAB HDL >39 mg/dL HDL-Cholesterol 52 Result Comment: 40-59 mg/dL, Acceptable >59 mg/dL, High: Negative risk factor for coronary heart disease <40 mg/dL, Low: Positive risk factor for coronary heart disease LAB LDL <100 mg/dL LDL-Cholesterol High 118 Result Comment: <100 mg/dL, Optimal 100-129 mg/dL, Near optimal/above optimal 130-159 mg/dL, Borderline high 160-189 mg/dL, High >189 mg/dL, Very high Secondary prevention optimal LDL Cholesterol levels are recommended to be < 70 mg/dL LAB NONHDL <130 mg/dL Non HDL Cholesterol 128 Result Comment: <130 mg/dL, Optimal 130-159 mg/dL, Near optimal/above optimal 160-189 mg/dL, Borderline high 190-219 mg/dL, High >219 mg/dL, Very high Secondary prevention optimal non HDL Cholesterol levels are recommended to be < 100 mg/dL LAB FT hrs Fasting Time 11 LAB VLDL <30 mg/dL VLDL Cholesterol 10 LAB TCHDL <5.10 TC:HDL Ratio 3.46 LAB LDLHDL <2.54 LDL:HDL Ratio 2.27 Result Comment: Reference: 1. National Cholesterol Education Program ATP III Guideline At-A-Glance Quick Desk Reference: National Heart, Lung, and Blood [place]. National Institutes of Health. 2001: NIH Publication No. 01-3305. 2. An International Atherosclerosis Society position paper: global recommendations for the management of dyslipidemia: executive summary, Atherosclerosis. 2014: 232(2):410-413. Performed By: #### CBC, CMP, LIPB, HBA1C #### [facility] [address] [place] [address] HEMOGLOBIN A1C Collected: 03/16/2018 Status: F Source: [place] 8:29 AM [facility] REPOSITORY TYPE CODE TESTS RESULT OUT OF REFERENCE UNITS RANGE LAB HGBA1C 4.3-5.6 % High Hemoglobin A1c 5.7 LAB HBA0 mg/dL Est. Average Glucose 117 Result Comment: eAG: (Estimated average glucose) is a calculated value from HgbA1c and is credit and collections representative of the average blood glucose level in the last 2-3 month period. Performed By: #### CBC, CMP, LIPB, HBA1C #### [facility] [address] [place], [place] [address] PROGRESS Observed: 02/19/2018 Status: COMPLETED Source: [place] 8:06 AM [facility] REPOSITORY HNO ID: [id number] Author: Abel Pablo Service: (none) Author Type: Physician Type: Progress Notes Filed: 03/08/2018 12:55 AM Note Text: Patient presents with: Recheck: Follow up SUBJECTIVE: Moshe Zimmerman is a 63 year old year old gentleman here today for 3 month follow up appointment for review of medical conditions. Still staying active. Biking Working well. More kidney stones. Smaller but still painful. had to miss a week of work recently. Lemonade and filtered water. Ongoing left leg numb and pins and needles pain. PAST MEDICAL HISTORY Diagnosis Date - Displacement of lumbar intervertebral disc without myelopathy - Encounter for Zostavax administration 05/20/2015 done at [facility] - Raynaud's syndrome - Sciatica - Tobacco abuse - Urinary calculus, unspecified Renal stones--calcium oxalate Current Outpatient Prescriptions: HYDROcodone-acetaminophen (NORCO) 5-325 mg per tablet Take 2 tablets by mouth twice daily as needed for Pain for up to 30 days.Earliest Fill Date: 02/04/18 sildenafil, antihypertensive, (REVATIO) 20 mg tablet Take 2 tablets by mouth once daily as needed. Tyeqihqxvxo-Gxlnuqeqz-Udm C-Mn (GLUCOSAMINE CHONDROITIN MAXSTR) 500-400 mg cap Take 1 capsule by mouth three times daily. Cholecalciferol, Vitamin D3, 1,000 unit cap Take 1 capsule by mouth once daily. THERAPEUTIC MULTIVITAMIN TAB Take one(1) tablet daily. HYDROcodone-acetaminophen (NORCO) 5-325 mg per tablet Take 2 tablets by mouth twice daily as needed for Pain for up to 30 days.Earliest Fill Date: 12/06/17 HYDROcodone-acetaminophen (NORCO) 5-325 mg per tablet Take 2 tablets by mouth twice daily as needed for Pain for up to 30 days.Earliest Fill Date: 01/05/18 rosuvastatin (CRESTOR) 20 mg tablet Take 0.5 tablets by mouth daily at bedtime. HYDROcodone-acetaminophen (NORCO) 5-325 mg per tablet Take 2 tablets by mouth twice daily as needed for Pain for up to 30 days.Earliest Fill Date: 10/07/17 HYDROcodone-acetaminophen (NORCO) 5-325 mg per tablet Take 2 tablets by mouth twice daily as needed for Pain for up to 30 days.Earliest Fill Date: 11/06/17 No current facility-administered medications for this visit. OBJECTIVE: BP 130/64 Pulse 60 Resp 16 Wt 100.7 kg (222 lb) BMI 31.40 kg/m? Patient is alert, oriented times 3, no apparent distress, affect is bright, reactive. Last 5 Encounter BP Readings: Date: BP: 02/19/2018 130/64 12/04/2017 138/88 08/21/2017 136/86 05/23/2017 134/72 01/19/2017 132/72 Last 5 Encounter Wt Readings: Date: Wt: 02/19/2018 100.7 kg (222 lb) 12/04/2017 98.9 kg (218 lb) 08/21/2017 99.3 kg (219 lb) 05/23/2017 96.2 kg (212 lb) 01/19/2017 94.3 kg (208 lb) Heart: Regular rate, rhythm, no murmurs, gallops, rubs. Lungs: Clear to auscultation, bilaterally, breathing non labored. Ext: No cyanosis, clubbing, or edema. Component Latest Ref Rng AND Units 01/08/2016 01/12/2017 WBC 3.70 - 11.00 k/uL 5.17 6.98 RBC 4.20 - 6.00 m/uL 4.54 5.14 Hemoglobin 13.0 - 17.0 g/dL 13.8 14.7 Hematocrit 39.0 - 51.0 % 41.3 46.7 MCV 80.0 - 100.0 fL 91.0 90.9 MCH 26.0 - 34.0 pG 30.4 28.6 MCHC 30.5 - 36.0 g/dL 33.4 31.5 RDW-CV 11.5 - 15.0 % 13.1 13.6 Platelet Count 150 - 400 k/uL 327 340 MPV 9.0 - 12.7 fL 10.3 10.2 Neut% % 55.5 60.7 Abs Neut (ANC) 1.45 - 7.50 k/uL 2.87 4.24 Lymph% % 32.9 27.8 Abs Lymph 1.00 - 4.00 k/uL 1.70 1.94 Weakley% % 7.9 8.5 Abs Weakley 0.00 - 0.86 k/uL 0.41 0.59 Eosin% % 3.1 2.7 Abs Eosin 0.00 - 0.45 k/uL 0.16 0.19 Baso% % 0.6 0.3 Abs Baso 0.00 - 0.10 k/uL 0.03 0.02 Nucleated Reds 0 /100 WBC 0.0 NRBC 0 /100 WBC 0 Absolute nRBC k/uL 0.00 Diff Type Auto Diff Auto Diff Protein, Total 6.3 - 8.0 g/dL 6.9 6.4 Albumin 3.9 - 4.9 g/dL 3.8 4.0 Calcium 8.5 - 10.2 mg/dL 9.1 9.3 Bilirubin, Total 0.2 - 1.3 mg/dL 0.3 0.4 Alkaline Phosphatase 36 - 108 U/L 103 120 (H) AST 14 - 40 U/L 17 29 Glucose 74 - 99 mg/dL 108 (H) 101 (H) BUN 9 - 24 mg/dL 14 15 Creatinine 0.73 - 1.22 mg/dL 0.93 0.97 Sodium 136 - 144 mmol/L 142 141 Potassium 3.7 - 5.1 mmol/L 4.6 4.5 Chloride 97 - 105 mmol/L 104 101 CO2 22 - 30 mmol/L 26 26 Anion Gap 9 - 18 mmol/L 12 14 ALT 10 - 54 U/L 15 17 eGFR- >60 >60 eGFR-All Other Races . >60 >60 Triglyceride 30 - 149 mg/dL 47 59 Cholesterol, Total 100 - 199 mg/dL 150 169 HDL Cholesterol >45 mg/dL 53 49 VLDL Cholesterol 6 - 40 mg/dL 9 12 LDL Cholesterol 60 - 129 mg/dL 88 108 Fasting Time hrs FASTING 10 TC:HDL Ratio 1.00 - 5.00 2.83 3.45 LDL:HDL Ratio 0.50 - 3.55 1.66 2.20 Non HDL Cholesterol 90 - 159 mg/dL 97 120 TSH 0.400 - 5.500 uU/mL 1.600 ASSESSMENT AND PLAN: Encounter Diagnosis ICD-10-CM 1. Chronic bilateral low back pain with bilateral sciatica M54.42 TOX SCREEN ROUT UR M54.41 PAIN PANEL, UR QUANT G89.29 HYDROcodone-acetaminophen (NORCO) 5-325 mg per tablet HYDROcodone-acetaminophen (NORCO) 5-325 mg per tablet HYDROcodone-acetaminophen (NORCO) 5-325 mg per tablet 2. DDD (degenerative disc disease), lumbar M51.36 TOX SCREEN ROUT UR PAIN PANEL, UR QUANT HYDROcodone-acetaminophen (NORCO) 5-325 mg per tablet HYDROcodone-acetaminophen (NORCO) 5-325 mg per tablet HYDROcodone-acetaminophen (NORCO) 5-325 mg per tablet 3. Elevated fasting glucose R73.01 4. Mixed hyperlipidemia E78.2 LIPID PANEL BASIC 5. Encounter for long-term current use of medication Z79.899 COMP METABOLIC PANEL CBC HGB A1C TOX SCREEN ROUT UR PAIN PANEL, UR QUANT 6. Class 1 obesity due to excess calories without serious comorbidity with body mass index (BMI) of 31.0 to 31.9 in adult E66.09 Z68.31 Stable with pain control. No signs of diversion or abuse of medication(s); no adverse effects. Continue present management. PDMP website checked and validated. All prescriptions have been APPROPRIATELY filled. No suspicious activity was identified. 03/08/2018 by Abel Pablo MD Labs as above per protocol. Further evaluation and treatment as indicated. Above issues addressed with patient. Patient involved in shared decision making for management of her medical issues. History and medications reviewed. Epic updated as needed Refills taken care of and meds adjusted as indicated after reviewed history, exam and labs. Health Maintenance reviewed. Updated record and/or ordered tests as recorded. Encouraged on efforts at healthy diet and regular exercise and adequate sleep. Needs to keep working on diet and exercise with lifestyle changes for effective weight loss as well as prevention of DM and control of BP and lipids.. The majority of the visit was spent counseling and/or coordinating care for the patient. Dtun-fw-pjuh time was at least 25 minutes. Abel Pablo MD CNOV Observed: 02/19/2018 Status: COMPLETED Source: [place] 8:00 AM [facility] REPOSITORY Office Visit (INTMWS) MOSHE ZIMMERMAN ([id number]) 1955 M Date Time Provider Department 02/19/18 8:00 AM ABEL PABLO IN[facility] During your visit today, we recorded the following information about you: Pulse Respiration Blood pressure Weight 60/minute 16/minute 130/64 100.7 kg Abel Pablo MD 03/08/2018 12:55 AM Signed Patient presents with: Recheck: Follow up SUBJECTIVE: Moshe Zimmerman is a 63 year old year old gentleman here today for 3 month follow up appointment for review of medical conditions. Still staying active. Biking Working well. More kidney stones. Smaller but still painful. had to miss a week of work recently. Lemonade and filtered water. Ongoing left leg numb and pins and needles pain. PAST MEDICAL HISTORY Diagnosis Date - Displacement of lumbar intervertebral disc without myelopathy - Encounter for Zostavax administration 05/20/2015 done at [place] - Raynaud's syndrome - Sciatica - Tobacco abuse - Urinary calculus, unspecified Renal stones--calcium oxalate Current Outpatient Prescriptions: HYDROcodone-acetaminophen (NORCO) 5-325 mg per tablet Take 2 tablets by mouth twice daily as needed for Pain for up to 30 days.Earliest Fill Date: 02/04/18 sildenafil, antihypertensive, (REVATIO) 20 mg tablet Take 2 tablets by mouth once daily as needed. Fyelgzjrcal-Obpbbfayu-Ylq C-Mn (GLUCOSAMINE CHONDROITIN MAXSTR) 500-400 mg cap Take 1 capsule by mouth three times daily. Cholecalciferol, Vitamin D3, 1,000 unit cap Take 1 capsule by mouth once daily. THERAPEUTIC MULTIVITAMIN TAB Take one(1) tablet daily. HYDROcodone-acetaminophen (NORCO) 5-325 mg per tablet Take 2 tablets by mouth twice daily as needed for Pain for up to 30 days.Earliest Fill Date: 12/06/17 HYDROcodone-acetaminophen (NORCO) 5-325 mg per tablet Take 2 tablets by mouth twice daily as needed for Pain for up to 30 days.Earliest Fill Date: 01/05/18 rosuvastatin (CRESTOR) 20 mg tablet Take 0.5 tablets by mouth daily at bedtime. HYDROcodone-acetaminophen (NORCO) 5-325 mg per tablet Take 2 tablets by mouth twice daily as needed for Pain for up to 30 days.Earliest Fill Date: 10/07/17 HYDROcodone-acetaminophen (NORCO) 5-325 mg per tablet Take 2 tablets by mouth twice daily as needed for Pain for up to 30 days.Earliest Fill Date: 11/06/17 No current facility-administered medications for this visit. OBJECTIVE: BP 130/64 Pulse 60 Resp 16 Wt 100.7 kg (222 lb) BMI 31.40 kg/m? Patient is alert, oriented times 3, no apparent distress, affect is bright, reactive. Last 5 Encounter BP Readings: Date: BP: 02/19/2018 130/64 12/04/2017 138/88 08/21/2017 136/86 05/23/2017 134/72 01/19/2017 132/72 Last 5 Encounter Wt Readings: Date: Wt: 02/19/2018 100.7 kg (222 lb) 12/04/2017 98.9 kg (218 lb) 08/21/2017 99.3 kg (219 lb) 05/23/2017 96.2 kg (212 lb) 01/19/2017 94.3 kg (208 lb) Heart: Regular rate, rhythm, no murmurs, gallops, rubs. Lungs: Clear to auscultation, bilaterally, breathing non labored. Ext: No cyanosis, clubbing, or edema. Component Latest Ref Rng AND Units 01/08/2016 01/12/2017 WBC 3.70 - 11.00 k/uL 5.17 6.98 RBC 4.20 - 6.00 m/uL 4.54 5.14 Hemoglobin 13.0 - 17.0 g/dL 13.8 14.7 Hematocrit 39.0 - 51.0 % 41.3 46.7 MCV 80.0 - 100.0 fL 91.0 90.9 MCH 26.0 - 34.0 pG 30.4 28.6 MCHC 30.5 - 36.0 g/dL 33.4 31.5 RDW-CV 11.5 - 15.0 % 13.1 13.6 Platelet Count 150 - 400 k/uL 327 340 MPV 9.0 - 12.7 fL 10.3 10.2 Neut% % 55.5 60.7 Abs Neut (ANC) 1.45 - 7.50 k/uL 2.87 4.24 Lymph% % 32.9 27.8 Abs Lymph 1.00 - 4.00 k/uL 1.70 1.94 Weakley% % 7.9 8.5 Abs Weakley 0.00 - 0.86 k/uL 0.41 0.59 Eosin% % 3.1 2.7 Abs Eosin 0.00 - 0.45 k/uL 0.16 0.19 Baso% % 0.6 0.3 Abs Baso 0.00 - 0.10 k/uL 0.03 0.02 Nucleated Reds 0 /100 WBC 0.0 NRBC 0 /100 WBC 0 Absolute nRBC k/uL 0.00 Diff Type Auto Diff Auto Diff Protein, Total 6.3 - 8.0 g/dL 6.9 6.4 Albumin 3.9 - 4.9 g/dL 3.8 4.0 Calcium 8.5 - 10.2 mg/dL 9.1 9.3 Bilirubin, Total 0.2 - 1.3 mg/dL 0.3 0.4 Alkaline Phosphatase 36 - 108 U/L 103 120 (H) AST 14 - 40 U/L 17 29 Glucose 74 - 99 mg/dL 108 (H) 101 (H) BUN 9 - 24 mg/dL 14 15 Creatinine 0.73 - 1.22 mg/dL 0.93 0.97 Sodium 136 - 144 mmol/L 142 141 Potassium 3.7 - 5.1 mmol/L 4.6 4.5 Chloride 97 - 105 mmol/L 104 101 CO2 22 - 30 mmol/L 26 26 Anion Gap 9 - 18 mmol/L 12 14 ALT 10 - 54 U/L 15 17 eGFR- >60 >60 eGFR-All Other Races . >60 >60 Triglyceride 30 - 149 mg/dL 47 59 Cholesterol, Total 100 - 199 mg/dL 150 169 HDL Cholesterol >45 mg/dL 53 49 VLDL Cholesterol 6 - 40 mg/dL 9 12 LDL Cholesterol 60 - 129 mg/dL 88 108 Fasting Time hrs FASTING 10 TC:HDL Ratio 1.00 - 5.00 2.83 3.45 LDL:HDL Ratio 0.50 - 3.55 1.66 2.20 Non HDL Cholesterol 90 - 159 mg/dL 97 120 TSH 0.400 - 5.500 uU/mL 1.600 ASSESSMENT AND PLAN: Encounter Diagnosis ICD-10-CM 1. Chronic bilateral low back pain with bilateral sciatica M54.42 TOX SCREEN ROUT UR M54.41 PAIN PANEL, UR QUANT G89.29 HYDROcodone-acetaminophen (NORCO) 5-325 mg per tablet HYDROcodone-acetaminophen (NORCO) 5-325 mg per tablet HYDROcodone-acetaminophen (NORCO) 5-325 mg per tablet 2. DDD (degenerative disc disease), lumbar M51.36 TOX SCREEN ROUT UR PAIN PANEL, UR QUANT HYDROcodone-acetaminophen (NORCO) 5-325 mg per tablet HYDROcodone-acetaminophen (NORCO) 5-325 mg per tablet HYDROcodone-acetaminophen (NORCO) 5-325 mg per tablet 3. Elevated fasting glucose R73.01 4. Mixed hyperlipidemia E78.2 LIPID PANEL BASIC 5. Encounter for long-term current use of medication Z79.899 COMP METABOLIC PANEL CBC HGB A1C TOX SCREEN ROUT UR PAIN PANEL, UR QUANT 6. Class 1 obesity due to excess calories without serious comorbidity with body mass index (BMI) of 31.0 to 31.9 in adult E66.09 Z68.31 Stable with pain control. No signs of diversion or abuse of medication(s); no adverse effects. Continue present management. PDMP website checked and validated. All prescriptions have been APPROPRIATELY filled. No suspicious activity was identified. 03/08/2018 by Abel Pablo MD Labs as above per protocol. Further evaluation and treatment as indicated. Above issues addressed with patient. Patient involved in shared decision making for management of her medical issues. History and medications reviewed. Epic updated as needed Refills taken care of and meds adjusted as indicated after reviewed history, exam and labs. Health Maintenance reviewed. Updated record and/or ordered tests as recorded. Encouraged on efforts at healthy diet and regular exercise and adequate sleep. Needs to keep working on diet and exercise with lifestyle changes for effective weight loss as well as prevention of DM and control of BP and lipids.. The majority of the visit was spent counseling and/or coordinating care for the patient. Xjgo-wb-qemf time was at least 25 minutes. Abel Pablo MD Referring Provider: ABEL PABLO [[id number]] Allergies As of Date: 02/19/2018 Noted Allergy Reaction LIPITOR (ATORVASTATIN CALCIUM) 06/07/2005 Comments: muscle cramps LODINE (ETODOLAC) 02/18/2008 Comments: depression WELLBUTRIN (BUPROPION HCL) 06/07/2005 Date Reviewed: 02/19/2018 Reviewed by: Rebeka Perez LPN - Fully Assessed Reason for Visit: Recheck [92] Cmt: Follow up Primary Visit Diagnosis:Chronic bilateral low back pain with bilateral sciatica [M54.42, M54.41, G89.29] Other Visit Diagnoses:DDD (degenerative disc disease), lumbar [M51.36] Elevated fasting glucose [R73.01] Mixed hyperlipidemia [E78.2] Encounter for long-term current use of medication [Z79.899] Class 1 obesity due to excess calories without serious comorbidity with body mass index (BMI) of 31.0 to 31.9 in adult [E66.09, Z68.31] Order(s):COMP METABOLIC PANEL [SQCMP] Order #: [id number] FUTURE CBC [SQCBC] Order #: [id number] FUTURE HGB A1C [CDFSO0G] Order #: [id number] FUTURE TOX SCREEN ROUT UR [SQUTOX2] Order #: [id number] PAIN PANEL, UR QUANT [SQUQNTPP] Order #: [id number] HYDROcodone-acetaminophen (NORCO) 5-325 mg per tabletTake 2 tablets by mouth twice daily as needed for Pain for up to 30 days. Earliest Fill Date: 03/06/18Disp: 120 tabletRfl: 0 [START ON 04/05/2018] HYDROcodone-acetaminophen (NORCO) 5-325 mg per tabletTake 2 tablets by mouth twice daily as needed for Pain for up to 30 days. Earliest Fill Date: 04/05/18Disp: 120 tabletRfl: 0 [START ON 05/05/2018] HYDROcodone-acetaminophen (NORCO) 5-325 mg per tabletTake 2 tablets by mouth twice daily as needed for Pain for up to 30 days. Earliest Fill Date: 05/05/18Disp: 120 tabletRfl: 0 LIPID PANEL BASIC [SQLIPB] Order #: [id number] FUTURE Prescriptions as of 02/19/2018 Sig: HYDROCODONE 5 MG-ACETAMINOPHE* Take 2 tablets by mouth twice* HYDROCODONE 5 MG-ACETAMINOPHE* Take 2 tablets by mouth twice* HYDROCODONE 5 MG-ACETAMINOPHE* Take 2 tablets by mouth twice* SILDENAFIL (ANTIHYPERTENSIVE)* Take 2 tablets by mouth once * MGDMQFPUVAF-LYCKOSUAM-AIP C-M* Take 1 capsule by mouth three* CHOLECALCIFEROL (VITAMIN D3) * Take 1 capsule by mouth once * THERAPEUTIC MULTIVITAMIN TABL* Take one(1) tablet daily. ROSUVASTATIN 20 MG TABLET Take 0.5 tablets by mouth calvin* Problem List As Of Date 02/19/2018 Noted Resolved RAYNAUD'S SYNDROME [I73.00] Displacement of lumbar intervertebral disc with* More... SCIATICA [M54.30] URINARY CALCULUS NOS [N20.9] More... 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] INVALID FOR* TOBACCO USE DISORDER [F17.200] INVALID FOR* Tendonitis [M77.9] INVALID FOR* Hemorrhoids [K64.9] INVALID FOR* Blood in stool [K92.1] INVALID FOR* Duodenal ulcer due to Helicobacter pylori [K26.*INVALID FOR* Lumbar stenosis with neurogenic claudication [M*INVALID FOR* Meralgia paresthetica of left side [G57.12] INVALID FOR* ED (erectile dysfunction) [N52.9] INVALID FOR* Chronic low back pain [M54.5, G89.29] INVALID FOR* DDD (degenerative disc disease), lumbar [M51.36]INVALID FOR* Internal hemorrhoids without mention of complic*INVALID FOR* Pain in both hands [M79.641, M79.642] INVALID FOR* Prescriptions ordered this encounter Disp Refills Start End HYDROCODONE 5 MG-ACETAMINOPHEN 325 M* 120 * 0 03/06/2018 04/05/2018 Class: Print RX Route: ORAL Sig: Take 2 tablets by mouth twice daily as needed for Pain for up to 30 days. Earliest Fill Date: 03/06/18 HYDROCODONE 5 MG-ACETAMINOPHEN 325 M* 120 * 0 04/05/2018 05/05/2018 Class: Print RX Route: ORAL Sig: Take 2 tablets by mouth twice daily as needed for Pain for up to 30 days. Earliest Fill Date: 04/05/18 HYDROCODONE 5 MG-ACETAMINOPHEN 325 M* 120 * 0 05/05/2018 06/04/2018 Class: Print RX Route: ORAL Sig: Take 2 tablets by mouth twice daily as needed for Pain for up to 30 days. Earliest Fill Date: 05/05/18 Medications Discontinued During This Encounter HYDROcodone-acetaminophen (NORCO) 5-* 120 * 0 11/06/2017 02/19/2018 Class: Print RX Route: ORAL Sig: Take 2 tablets by mouth twice daily as needed for Pain for up to 30 days. Earliest Fill Date: 11/06/17 Disc: Reason for discontinue is not on file. HYDROcodone-acetaminophen (NORCO) 5-* 120 * 0 10/07/2017 02/19/2018 Class: Print RX Route: ORAL Sig: Take 2 tablets by mouth twice daily as needed for Pain for up to 30 days. Earliest Fill Date: 10/07/17 Disc: Reason for discontinue is not on file. HYDROcodone-acetaminophen (NORCO) 5-* 120 * 0 01/05/2018 02/19/2018 Class: Print RX Route: ORAL Sig: Take 2 tablets by mouth twice daily as needed for Pain for up to 30 days. Earliest Fill Date: 01/05/18 Disc: Reason for discontinue is not on file. HYDROcodone-acetaminophen (NORCO) 5-* 120 * 0 12/06/2017 02/19/2018 Class: Print RX Route: ORAL Sig: Take 2 tablets by mouth twice daily as needed for Pain for up to 30 days. Earliest Fill Date: 12/06/17 Disc: Reason for discontinue is not on file. HYDROcodone-acetaminophen (NORCO) 5-* 120 * 0 02/04/2018 02/19/2018 Class: Print RX Route: ORAL Sig: Take 2 tablets by mouth twice daily as needed for Pain for up to 30 days. Earliest Fill Date: 02/04/18 Disc: Reason for discontinue is not on file. Disposition: Return for Continue every 3 months follow up . Follow-up and Disposition History Recorded Encounter Status:Closed by ABEL PABLO MD on 03/08/18 PROGRESS Observed: 12/04/2017 Status: COMPLETED Source: [place] 8:59 AM [facility] [place] REPOSITORY HNO ID: [id number] Author: Abel Pablo Service: (none) Author Type: Physician Type: Progress Notes Filed: 12/09/2017 10:43 PM Note Text: Patient presents with: Recheck SUBJECTIVE: Moshe Zimmerman is a 62 year old year old gentleman here today for 3 month follow up appointment for review of medical conditions. PAST MEDICAL HISTORY Diagnosis Date - Displacement of lumbar intervertebral disc without myelopathy - Encounter for Zostavax administration 05/20/2015 done at [facility] - Raynaud's syndrome - Sciatica - Tobacco abuse - Urinary calculus, unspecified Renal stones--calcium oxalate Current Outpatient Prescriptions: rosuvastatin (CRESTOR) 20 mg tablet Take 0.5 tablets by mouth daily at bedtime. HYDROcodone-acetaminophen (NORCO) 5-325 mg per tablet Take 2 tablets by mouth twice daily as needed for Pain for up to 30 days.Earliest Fill Date: 09/07/17 HYDROcodone-acetaminophen (NORCO) 5-325 mg per tablet Take 2 tablets by mouth twice daily as needed for Pain for up to 30 days.Earliest Fill Date: 10/07/17 HYDROcodone-acetaminophen (NORCO) 5-325 mg per tablet Take 2 tablets by mouth twice daily as needed for Pain for up to 30 days.Earliest Fill Date: 11/06/17 Tadalafil (CIALIS) 20 mg tab(s) Take 1 tablet by mouth once daily. Lpmaaxbdswi-Bunnratnv-Oih C-Mn (GLUCOSAMINE CHONDROITIN MAXSTR) 500-400 mg cap Take 1 capsule by mouth three times daily. Cholecalciferol, Vitamin D3, 1,000 unit cap Take 1 capsule by mouth once daily. THERAPEUTIC MULTIVITAMIN TAB Take one(1) tablet daily. No current facility-administered medications for this visit. OBJECTIVE: BP 138/88 Pulse 74 Resp 16 Wt 98.9 kg (218 lb) BMI 30.84 kg/m2 Patient is alert, oriented times 3, no apparent distress, affect is bright, reactive. Last 5 Encounter BP Readings: Date: BP: 12/04/2017 138/88 08/21/2017 136/86 05/23/2017 134/72 01/19/2017 132/72 10/12/2016 138/60 Last 5 Encounter Wt Readings: Date: Wt: 12/04/2017 98.9 kg (218 lb) 08/21/2017 99.3 kg (219 lb) 05/23/2017 96.2 kg (212 lb) 01/19/2017 94.3 kg (208 lb) 10/12/2016 93.9 kg (207 lb) Heart: Regular rate, rhythm, no murmurs, gallops, rubs. Lungs: Clear to auscultation, bilaterally, breathing non labored. Ext: No cyanosis, clubbing, or edema. ASSESSMENT AND PLAN: Encounter Diagnosis ICD-10-CM 1. Chronic bilateral low back pain with bilateral sciatica M54.42 HYDROcodone-acetaminophen (NORCO) 5-325 mg per tablet M54.41 HYDROcodone-acetaminophen (NORCO) 5-325 mg per tablet G89.29 HYDROcodone-acetaminophen (NORCO) 5-325 mg per tablet 2. DDD (degenerative disc disease), lumbar M51.36 HYDROcodone-acetaminophen (NORCO) 5-325 mg per tablet HYDROcodone-acetaminophen (NORCO) 5-325 mg per tablet HYDROcodone-acetaminophen (NORCO) 5-325 mg per tablet 3. Erectile dysfunction, unspecified erectile dysfunction type N52.9 sildenafil, antihypertensive, (REVATIO) 20 mg tablet No OIC. Stable with pain control. No signs of diversion or abuse of medication(s); no adverse effects. Continue present management. Further evaluation and treatment as indicated. Staying active. OARRS website checked and validated. All prescriptions have been APPROPRIATELY filled. No suspicious activity was identified.- 12/09/2017 by Abel Pablo MD Labs ordered for next appointment. Above issues addressed with patient. Patient involved in shared decision making for management of her medical issues. History and medications reviewed. Epic updated as needed Refills taken care of and meds adjusted as indicated after reviewed history, exam and labs. Health Maintenance reviewed. Updated record and/or ordered tests as recorded. Encouraged on efforts at healthy diet and regular exercise and adequate sleep. Asked for RX for generic Revatio since pharmacist said less expensive than Viagra generic.Aware that the indication for that med is different. Looks like same active ingredient but just lower dose. Will see if able to get filled at pharmacy. Further evaluation and treatment as indicated. The majority of the visit was spent counseling and/or coordinating care for the patient. Xlqn-qz-izat time was at least 25 minutes. Abel Pablo MD CNOV Observed: 12/04/2017 Status: COMPLETED Source: [place] 8:20 AM [facility] RE[facility]ORY Office Visit (INTMWS) MOSHE ZIMMERMAN ([id number]) 1955 M Date Time Provider Department 12/04/17 8:20 AM ABEL PABLO INTMWS During your visit today, we recorded the following information about you: Pulse Respiration Blood pressure Weight 74/minute 16/minute 138/88 98.9 kg Abel Pablo MD 12/09/2017 10:43 PM Signed Patient presents with: Recheck SUBJECTIVE: Moshe Zimmerman is a 62 year old year old gentleman here today for 3 month follow up appointment for review of medical conditions. PAST MEDICAL HISTORY Diagnosis Date - Displacement of lumbar intervertebral disc without myelopathy - Encounter for Zostavax administration 05/20/2015 done at [facility] - Raynaud's syndrome - Sciatica - Tobacco abuse - Urinary calculus, unspecified Renal stones--calcium oxalate Current Outpatient Prescriptions: rosuvastatin (CRESTOR) 20 mg tablet Take 0.5 tablets by mouth daily at bedtime. HYDROcodone-acetaminophen (NORCO) 5-325 mg per tablet Take 2 tablets by mouth twice daily as needed for Pain for up to 30 days.Earliest Fill Date: 09/07/17 HYDROcodone-acetaminophen (NORCO) 5-325 mg per tablet Take 2 tablets by mouth twice daily as needed for Pain for up to 30 days.Earliest Fill Date: 10/07/17 HYDROcodone-acetaminophen (NORCO) 5-325 mg per tablet Take 2 tablets by mouth twice daily as needed for Pain for up to 30 days.Earliest Fill Date: 11/06/17 Tadalafil (CIALIS) 20 mg tab(s) Take 1 tablet by mouth once daily. Glxnmoziivq-Iztgiceov-Puu C-Mn (GLUCOSAMINE CHONDROITIN MAXSTR) 500-400 mg cap Take 1 capsule by mouth three times daily. Cholecalciferol, Vitamin D3, 1,000 unit cap Take 1 capsule by mouth once daily. THERAPEUTIC MULTIVITAMIN TAB Take one(1) tablet daily. No current facility-administered medications for this visit. OBJECTIVE: BP 138/88 Pulse 74 Resp 16 Wt 98.9 kg (218 lb) BMI 30.84 kg/m2 Patient is alert, oriented times 3, no apparent distress, affect is bright, reactive. Last 5 Encounter BP Readings: Date: BP: 12/04/2017 138/88 08/21/2017 136/86 05/23/2017 134/72 01/19/2017 132/72 10/12/2016 138/60 Last 5 Encounter Wt Readings: Date: Wt: 12/04/2017 98.9 kg (218 lb) 08/21/2017 99.3 kg (219 lb) 05/23/2017 96.2 kg (212 lb) 01/19/2017 94.3 kg (208 lb) 10/12/2016 93.9 kg (207 lb) Heart: Regular rate, rhythm, no murmurs, gallops, rubs. Lungs: Clear to auscultation, bilaterally, breathing non labored. Ext: No cyanosis, clubbing, or edema. ASSESSMENT AND PLAN: Encounter Diagnosis ICD-10-CM 1. Chronic bilateral low back pain with bilateral sciatica M54.42 HYDROcodone-acetaminophen (NORCO) 5-325 mg per tablet M54.41 HYDROcodone-acetaminophen (NORCO) 5-325 mg per tablet G89.29 HYDROcodone-acetaminophen (NORCO) 5-325 mg per tablet 2. DDD (degenerative disc disease), lumbar M51.36 HYDROcodone-acetaminophen (NORCO) 5-325 mg per tablet HYDROcodone-acetaminophen (NORCO) 5-325 mg per tablet HYDROcodone-acetaminophen (NORCO) 5-325 mg per tablet 3. Erectile dysfunction, unspecified erectile dysfunction type N52.9 sildenafil, antihypertensive, (REVATIO) 20 mg tablet No OIC. Stable with pain control. No signs of diversion or abuse of medication(s); no adverse effects. Continue present management. Further evaluation and treatment as indicated. Staying active. OARRS website checked and validated. All prescriptions have been APPROPRIATELY filled. No suspicious activity was identified.- 12/09/2017 by Abel Pablo MD Labs ordered for next appointment. Above issues addressed with patient. Patient involved in shared decision making for management of her medical issues. History and medications reviewed. Epic updated as needed Refills taken care of and meds adjusted as indicated after reviewed history, exam and labs. Health Maintenance reviewed. Updated record and/or ordered tests as recorded. Encouraged on efforts at healthy diet and regular exercise and adequate sleep. Asked for RX for generic Revatio since pharmacist said less expensive than Viagra generic.Aware that the indication for that med is different. Looks like same active ingredient but just lower dose. Will see if able to get filled at pharmacy. Further evaluation and treatment as indicated. The majority of the visit was spent counseling and/or coordinating care for the patient. Huny-iv-uckc time was at least 25 minutes. MD Abel Young MD 12/04/2017 9:16 AM Signed Labs ordered for next appointment. Referring Provider: SELF [200] Allergies As of Date: 12/04/2017 Noted Allergy Reaction LIPITOR (ATORVASTATIN CALCIUM) 06/07/2005 Comments: muscle cramps LODINE (ETODOLAC) 02/18/2008 Comments: depression WELLBUTRIN (BUPROPION HCL) 06/07/2005 Date Reviewed: 12/04/2017 Reviewed by: April [place] Pathology Teacher - Fully Assessed Reason for Visit: Recheck [92] Primary Visit Diagnosis:Chronic bilateral low back pain with bilateral sciatica [M54.42, M54.41, G89.29] Other Visit Diagnoses:DDD (degenerative disc disease), lumbar [M51.36] Erectile dysfunction, unspecified erectile dysfunction type [N52.9] Order(s):HYDROcodone-acetaminophen (NORCO) 5-325 mg per tabletTake 2 tablets by mouth twice daily as needed for Pain for up to 30 days. Earliest Fill Date: 12/06/17Disp: 120 tabletRfl: 0 [START ON 01/05/2018] HYDROcodone-acetaminophen (NORCO) 5-325 mg per tabletTake 2 tablets by mouth twice daily as needed for Pain for up to 30 days. Earliest Fill Date: 01/05/18Disp: 120 tabletRfl: 0 [START ON 02/04/2018] HYDROcodone-acetaminophen (NORCO) 5-325 mg per tabletTake 2 tablets by mouth twice daily as needed for Pain for up to 30 days. Earliest Fill Date: 02/04/18Disp: 120 tabletRfl: 0 sildenafil, antihypertensive, (REVATIO) 20 mg tabletTake 2 tablets by mouth once daily as needed.Disp: 28 tabletRfl: 1 Prescriptions as of 12/04/2017 Sig: HYDROCODONE 5 MG-ACETAMINOPHE* Take 2 tablets by mouth twice* HYDROCODONE 5 MG-ACETAMINOPHE* Take 2 tablets by mouth twice* HYDROCODONE 5 MG-ACETAMINOPHE* Take 2 tablets by mouth twice* SILDENAFIL (ANTIHYPERTENSIVE)* Take 2 tablets by mouth once * ROSUVASTATIN 20 MG TABLET Take 0.5 tablets by mouth calvin* HYDROCODONE 5 MG-ACETAMINOPHE* Take 2 tablets by mouth twice* HYDROCODONE 5 MG-ACETAMINOPHE* Take 2 tablets by mouth twice* XIUKNBNECJX-PCOESNYRQ-SBE C-M* Take 1 capsule by mouth three* CHOLECALCIFEROL (VITAMIN D3) * Take 1 capsule by mouth once * THERAPEUTIC MULTIVITAMIN TABL* Take one(1) tablet daily. 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 SCIATICA [M54.30] URINARY CALCULUS NOS [N20.9] More... 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] INVALID FOR* TOBACCO USE DISORDER [F17.200] INVALID FOR* Tendonitis [M77.9] INVALID FOR* Hemorrhoids [K64.9] INVALID FOR* Blood in stool [K92.1] INVALID FOR* Duodenal ulcer due to Helicobacter pylori [K26.*INVALID FOR* Lumbar stenosis with neurogenic claudication [M*INVALID FOR* Meralgia paresthetica of left side [G57.12] INVALID FOR* ED (erectile dysfunction) [N52.9] INVALID FOR* Chronic low back pain [M54.5, G89.29] INVALID FOR* DDD (degenerative disc disease), lumbar [M51.36]INVALID FOR* Internal hemorrhoids without mention of complic*INVALID FOR* Pain in both hands [M79.641, M79.642] INVALID FOR* Other instructions from your clinician: Labs ordered for next appointment. Prescriptions ordered this encounter Disp Refills Start End HYDROCODONE 5 MG-ACETAMINOPHEN 325 M* 120 * 0 12/06/2017 01/05/2018 Class: Print RX Route: ORAL Sig: Take 2 tablets by mouth twice daily as needed for Pain for up to 30 days. Earliest Fill Date: 12/06/17 HYDROCODONE 5 MG-ACETAMINOPHEN 325 M* 120 * 0 01/05/2018 02/04/2018 Class: Print RX Route: ORAL Sig: Take 2 tablets by mouth twice daily as needed for Pain for up to 30 days. Earliest Fill Date: 01/05/18 HYDROCODONE 5 MG-ACETAMINOPHEN 325 M* 120 * 0 02/04/2018 03/06/2018 Class: Print RX Route: ORAL Sig: Take 2 tablets by mouth twice daily as needed for Pain for up to 30 days. Earliest Fill Date: 02/04/18 SILDENAFIL (ANTIHYPERTENSIVE) 20 MG * 28 t* 1 12/04/2017 Route: ORAL Sig: Take 2 tablets by mouth once daily as needed. Medications Discontinued During This Encounter HYDROcodone-acetaminophen (NORCO) 5-* 120 * 0 09/07/2017 12/04/2017 Class: Print RX Route: ORAL Sig: Take 2 tablets by mouth twice daily as needed for Pain for up to 30 days. Earliest Fill Date: 09/07/17 Disc: Reason for discontinue is not on file. Tadalafil (CIALIS) 20 mg tab(s) 10 t* 5 05/23/2017 12/04/2017 Route: ORAL Sig: Take 1 tablet by mouth once daily. Disc: Reason for discontinue is not on file. Disposition: Return for Add May 3 month Follow Up. Follow-up and Disposition History Recorded Encounter Status:Closed by ABEL PABLO MD on 12/09/17 CNPTOUTREA Observed: 11/20/2017 Status: COMPLETED Source: [place] 12:00 AM [facility] REPOSITORY Patient Outreach (FAMPST) MOSHE ZIMMERMAN ([id number]) 1955 M Date Time Provider Department 11/20/17 ABEL PABLO During your visit today, we recorded the following information about you: Allergies As of Date: 11/20/2017 Noted Allergy Reaction LIPITOR (ATORVASTATIN CALCIUM) 06/07/2005 Comments: muscle cramps LODINE (ETODOLAC) 02/18/2008 Comments: depression WELLBUTRIN (BUPROPION HCL) 06/07/2005 Date Reviewed: 08/21/2017 Reviewed by: Dahlia Cardenas LPN - Fully Assessed Visit Diagnosis:Medication management [Z79.899] Prescriptions as of 11/20/2017 Sig: ROSUVASTATIN 20 MG TABLET Take 0.5 tablets by mouth calvin* X HYDROCODONE 5 MG-ACETAMINOPHE* Take 2 tablets by mouth twice* X HYDROCODONE 5 MG-ACETAMINOPHE* Take 2 tablets by mouth twice* X TADALAFIL 20 MG TABLET Take 1 tablet by mouth once d* ORHIQJUVBMA-IENNXDGCX-JDY C-M* Take 1 capsule by mouth three* CHOLECALCIFEROL (VITAMIN D3) * Take 1 capsule by mouth once * THERAPEUTIC MULTIVITAMIN TABL* Take one(1) tablet daily. 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 SCIATICA [M54.30] URINARY CALCULUS NOS [N20.9] More... 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] INVALID FOR* TOBACCO USE DISORDER [F17.200] INVALID FOR* Tendonitis [M77.9] INVALID FOR* Hemorrhoids [K64.9] INVALID FOR* Blood in stool [K92.1] INVALID FOR* Duodenal ulcer due to Helicobacter pylori [K26.*INVALID FOR* Lumbar stenosis with neurogenic claudication [M*INVALID FOR* Meralgia paresthetica of left side [G57.12] INVALID FOR* ED (erectile dysfunction) [N52.9] INVALID FOR* Chronic low back pain [M54.5, G89.29] INVALID FOR* DDD (degenerative disc disease), lumbar [M51.36]INVALID FOR* Internal hemorrhoids without mention of complic*INVALID FOR* Pain in both hands [M79.641, M79.642] INVALID FOR* Encounter Status:Closed by EPIC, PRODUSER on 05/31/18 ALLERGIES ALLERGIES DATE TYPE / CODE NAME / CODE REACTION SEVERITY SOURCE Drug etodolac/[id number] Hives [place] 8 Allergy/642033257( 87(RXNORM) Community SNOMED CT) Hospital Repository Miscellaneous LODINE Hives Unknown [place] 8 Allergy/696155176( Community SNOMED CT) Hospital Repository DRUG ETODOLAC [place] INGREDI/307011603( Clinic Main SNOMED CT) [place] Repository DRUG ATORVASTATIN [place] INGREDI/681894448( CALCIUM Clinic Main SNOMED CT) [place] Repository DRUG BUPROPION HCL [place] INGREDI/349336553( Clinic Main SNOMED CT) [place] Repository ENCOUNTERS ENCOUNTERS ADMIT/DISCHARGE ACCOUNT ADMITTING ENCOUNTER LOCATION SOURCE NUMBER CLASS 09/11/2018 [id number] [facility] ing:CR Repository 09/10/2018/09/10/19 [id number] Ambulatory [address] Repository 09/10/2018/09/11/19 [id number] Ambulatory [address] Repository 09/05/2018 [id number] Ambulatory [facility] ing:PSN Repository 09/03/2018/09/04/19 [id number] Ambulatory [address] Repository 08/30/2018/08/30/19 [id number] Ambulatory [address] Repository 08/27/2018 [id number] [facility] ing:CVS Repository 08/27/2018 [id number] Ambulatory BMSBuilding:W [facility] Repository 08/19/2018/08/19/20 [id number] Ambulatory [address] Hospital ing:CR Repository 08/11/2018/08/12/20 [id number] Ambulatory [address] Repository 08/08/2018/08/08/20 [id number] Ambulatory BMSBuilding:B [address] Repository 08/06/2018 [id number] [facility] ing:CR Repository 08/06/2018/08/06/20 [id number] Ambulatory [address] Main [place] Repository 07/25/2018 [id number] Ambulatory BMSBuilding:Kenyatta Otto [facility] Repository 07/24/2018/07/25/20 [id number] Ambulatory BMSBuilding:W [place] [facility] Repository 07/24/2018/07/25/20 [id number] Ambulatory [address] Hospital ing:CLSPRoom: Repository [id number] 07/16/2018/07/16/20 [id number] Ambulatory BMSBuilding:Kenyatta Ramon MS.[facility] Repository 07/08/2018/07/10/20 [id number] Ambulatory [address] Repository 07/04/2018 [id number] Ambulatory BMSBuilding:Kenyatta Otto MS.[facility] Repository 07/04/2018/07/06/20 [id number] [place], Inpatient [facility] ing:PCURoom: Repository [id number]: 1 07/04/2018 [id number] [place], Ambulatory BMSBuilding:Kenyatta Giron MS.[facility] Repository 07/04/2018 [id number] [place], Ambulatory BMSBuilding:Kenyatta Giron [facility] Repository 07/04/2018 [id number] [place], Ambulatory BMSBuilding:Kenyatta Giron [facility] Repository 07/04/2018 [id number] [place], Ambulatory BMSBuilding:Kenyatta Giron MS.[facility] Repository 07/04/2018 [id number] [place], Ambulatory BMSBuilding:Kenyatta Giron MS.[facility] Repository 07/04/2018 [id number] [place], Ambulatory BMSBuilding:Kenyatta Giron [facility] Repository 07/02/2018/07/02/20 [id number] Ambulatory [address] Repository 07/02/2018/07/03/20 [id number] Ambulatory [address] Repository 05/21/2018/06/05/20 [id number] Ambulatory [address] Repository 03/16/2018/07/28 [id number] Ambulatory [address] Repository 02/19/2018/03/11/20 [id number] Ambulatory [address] Repository 12/04/2017/12/12/19 [id number] Ambulatory [address] Repository PAYERS PAYERS ENCOUNTER GUARANTOR PAYER SUBSCRIBER SOURCE 09/11/2018 MOSHE E Primary MOSHE E [place] [id number] Insurance:ANTHEMPolic RUNYONDOB: Community COLLEGE y [place]: [id number] [id number] Repository [address]Nby: (330) Date:1894-80-24EJ [phone] () [id number], [place] [address]BV: 09/11/2018 Secondary NOT GIVENUNK [place] Insurance:SELF PAY [facility] Number: Effective Repository Date:2018-08-20 09/05/2018 MOSHE E Primary MOSHE E [place] [id number] Insurance:ANTHEMPolic RUNYONDOB: Community COLLEGE y Number: [id number], [place] [id number] Repository [address]Asz: 330) Date:2438-74-12LW [phone] () [id number], [place] [address]FW: 09/05/2018 Secondary NOT GIVENUNK [place] Insurance:SELF PAY [facility] Number: Effective Repository Date:2018-08-29 08/27/2018 MOSHE E Primary MOSHE E [place] [id number] Insurance:ANTHEMPolic RUNYONDOB: Community COLLEGE y Number: [id number], [place] [id number] Repository [address]Naw: (330) Date:9349-70-27XT [phone] () [id number], [place] [address]ON: 08/27/2018 Secondary NOT GIVENUNK [place] Insurance:SELF PAY [facility] Number: Effective Repository Date:2018-08-08 08/27/2018 MOSHE E Primary MOSHE E [place] [id number] Insurance:ANTHEMPolic RUNYONDOB: Community COLLEGE y Number: [id number], [place] [id number] Repository [address]Ljv: (330) Date:5855-24-95BZ [phone] () 194084GSCXBWI, [place] [address]LW: 08/27/2018 Secondary NOT GIVENUNK [place] Insurance:SELF PAY [facility] Number: Effective Repository Date:2018-08-27 08/19/2018 MOSHE E Primary MOSHE E [place] [id number] Insurance:ANTHEMPolic RUNYONDOB: Community COLLEGE y Number: [id number], [place] [id number] Repository [address]Mzh: (330) Date:5784-20-39VF [phone] () 0388[address]GMBSITM, [place] [address]OU: 08/19/2018 Secondary NOT GIVENUNK [place] Insurance:SELF PAY [facility] Number: Effective Repository Date:2018-08-06 08/08/2018 MOSHE E Primary MOSHE E [place] [id number] Insurance:ANTHEMPolic RUNYONDOB: Community COLLEGE y Number: [id number], [place] [id number] Repository [address]Har: (330) Date:3625-89-83QO [phone] () [id number], [place] [address]CO: 08/08/2018 Secondary NOT GIVENUNK [place] Insurance:SELF PAY [facility] Number: Effective Repository Date:2018-08-08 08/06/2018 MOSHE E Primary MOSHE E [place] [id number] Insurance:ANTHEMPolic RUNYONDOB: Community COLLEGE y Number: [id number], [place] [id number] Repository [address]Qqs: (330) Date:5340-96-66FP [phone] () [id number], [place] [address]ON: 08/06/2018 Secondary NOT GIVENUNK [place] Insurance:SELF PAY [facility] Number: Effective Repository Date:2018-07-29 07/25/2018 MOSHE E Primary MOSHE E [place] [id number] Insurance:ANTHEMPolic RUNYONDOB: Community COLLEGE y Number: [id number], [place] [id number] Repository [address]Hfp: (330) Date:4852-84-50TF [phone] () [id number], [place] [address]YI: 07/25/2018 Secondary NOT GIVENUNK [place] Insurance:SELF PAY [facility] Number: Effective Repository Date:2018-07-25 07/24/2018 MOSHE E Primary MOSHE E [place] [id number] Insurance:ANTHEMPolic RUNYONDOB: Community COLLEGE y Number: [id number], [place] [id number] Repository 18[address]Pob: (330) Date:8133-19-61RQ [phone] () 116368ITOGAPT, [place] [address]YE: 07/24/2018 Secondary NOT GIVENUNK [place] Insurance:SELF PAY [facility] Number: Effective Repository Date:2018-07-24 07/24/2018 MOSHE E Primary MOSHE E [place] [id number] Insurance:ANTHEMPolic RUNYONDOB: Community COLLEGE y Number: [id number], [place] [id number] Repository [address]Nky: (330) Date:9807-66-67EU [phone] () 356624EJUHWZC, [place] [address]ZJ: 07/24/2018 Secondary NOT GIVENUNK [place] Insurance:SELF PAY [facility] Number: Effective Repository Date:2018-07-16 07/16/2018 MOSHE E Primary MOSHE E [place] [id number] Insurance:ANTHEMPolic RUNYONDOB: Community COLLEGE y Number: [id number], [place] [id number] Repository [address]Pni: (330) Date:8238-92-21WN [phone] () [id number] [place] [address]CY: 07/16/2018 Secondary NOT GIVENUNK [place] Insurance:SELF PAY [facility] Number: Effective Repository Date:2018-07-16 07/04/2018 Moshe E Primary Moshe E [place] [id number] Insurance:ANTHEMPolic RunyonDOB: [employer] y Number: [id number], [place] [id number] Repository [address]Ktc: 330) Date:4658-00-58HP [phone] () [address] [place] [address]RO: 07/04/2018 Secondary NOT GIVENUNK [place] Insurance:SELF PAY [facility] Number: Effective Repository Date:2018-07-04 07/04/2018 MOSHE E Primary MOSHE E [place] [id number] Insurance:ANTHEMPolic RUNYONDOB: Community COLLEGE y Number: [id number], [place] [id number] Repository [address]Zca: (330) Date:5886-30-47DJ [phone] () [id number] [place] [address]UI: 07/04/2018 Secondary NOT GIVENUNK [place] Insurance:SELF PAY [facility] Number: Effective Repository Date:2018-07-04 07/04/2018 MOSHE E Primary MOSHE E [place] [id number] Insurance:ANTHEMPolic RUNYONDOB: Community COLLEGE y Number: [id number], [place] [id number] Repository [address]Npe: 330) Date:6687-01-82QC [phone] () [id number] [place] [address]MK: 07/04/2018 Secondary NOT GIVENUNK [place] Insurance:SELF PAY [facility] Number: Effective Repository Date:2018-07-04 07/04/2018 Moshe E Primary Moshe E [place] [id number] Insurance:ANTHEMPolic RunyonDOB: [employer] y Number: [id number], [place] [id number] Repository [address]Ulv: (330) Date:5644-70-23ZK [phone] () [id number], [place] [address]QP: 07/04/2018 Secondary NOT GIVENUNK [place] Insurance:SELF PAY [facility] Effective Repository Date:2018-07-04 07/04/2018 Moshe E Primary Moshe E [place] [id number] Insurance:ANTHEMPolic RunyonDOB: [employer] y Number: [id number], [place] [id number] Repository 10[address]Tdb: (330) Date:3037-89-03AM [phone] () 129292BWEREDU, [place] [address]PK: 07/04/2018 Secondary NOT GIVENUNK [place] Insurance:SELF PAY [facility] Number: Effective Repository Date:2018-07-04 07/04/2018 MOSHE E Primary MOSHE E [place] [id number] Insurance:ANTHEMPolic RUNYONDOB: Community COLLEGE y Number: [id number], [place] [id number] Repository [address]Xnb: (330) Date:0515-20-52HJ [phone] () 403402ZELERIC, [place] [address]WB: 07/04/2018 Secondary NOT GIVENUNK [place] Insurance:SELF PAY [facility] Number: Effective Repository Date:2018-07-04 07/04/2018 MOSHE E Primary MOSHE E [place] [id number] Insurance:ANTHEMPolic RUNYONDOB: [facility] [employer] y [place]: [id number] [id number] Repository [id number]: ([phone]) Date:[phone] () [id number], [place] [address]ZO: 07/04/2018 Secondary NOT GIVENUNK [place] Insurance:SELF PAY [facility] Number: Effective Repository Date:2018-07-04 07/04/2018 MOSHE E Primary MOSHE E [place] [id number] Insurance:ANTHEMPolic RUNYONDOB: [facility] y Number: [id number] [id number] Repository [id number]: ([phone]) Date:[phone] () [id number] [place] [id number]: 07/04/2018 Secondary NOT GIVENUNK [place] Insurance:SELF PAY [facility] Number: Effective Repository Date:2018-07-04
== END ==
PROVIDERS: Family Provider Internal Medicine; PCP Internal Medicine; Referring Provider Internal Medicine Cardiovascular Disease; Visit Provider Internal Medicine Cardiovascular Disease
DX: I25.10 Atherosclerotic heart disease of native coronary artery without angina pectoris (principal); R06.09 Other forms of dyspnea; I25.2 Old myocardial infarction; Z95.5 Presence of coronary angioplasty implant and graft

== ENCOUNTER 2018-08-19 08:00 | Outpatient (RCR) | payer BC, SELFPAY ==
[2018-07-04 10:10] VITALS: BMI 31.4
[2018-08-06 10:55] VITALS: BMI 31.2
== END 2018-08-19 23:59 ==
LOC: CR 08:00
PROVIDERS: Family Provider Internal Medicine; PCP Internal Medicine; Referring Provider Internal Medicine Cardiovascular Disease; Visit Provider Internal Medicine Cardiovascular Disease
DX: I21.19 ST elevation (STEMI) myocardial infarction involving other coronary artery of inferior wall (principal); I21.3 ST elevation (STEMI) myocardial infarction of unspecified site; Z95.5 Presence of coronary angioplasty implant and graft
CPT/HCPCS: 93798

== ENCOUNTER → 2018-08-27 12:26 | Outpatient (CLI) | payer BC, SELFPAY ==
[2018-07-04 10:10] VITALS: BMI 31.4
[2018-08-08 11:38] VITALS: BMI 32.2
--- NOTE | 2018-08-27 12:29 | STEWCON_ITS ---
Reason For Study: CAD/ASHD Stress Results Protocol: Stress Echocardiogram Maximum Predicted HR: 159 bpm Target HR: 135 bpm % Maximum Predicted HR: 86 % Heart Stage Duration Rate BP Comment (mm:ss) (bpm) BASELINE 63 164/80PO 96-97% ON RA ODALIS PROTOCOL- STAGE 1 3:00 11 160/80VENTRICULAR BIGEMINY, FINGERS COLD, UNABLE TO GET PO ODALIS PROTOCOL- STAGE 2 3:00 123 174/84DYSPNEA, CP3/10, LEGS WEAK ODALIS PROTOCOL- EXTREME SOB, CP 3/10, LEG WEAKNESS/ACHING, VENTRICULAR STAGE 3 0:45 137 / BIGEMINY RECOVERY 70 130/76PO 97% Stress Duration: 6:45 mm:ss Maximum Stress HR: 137 bpm Baseline Echocardiogram Findings The estimated ejection fraction is 50 %. Mildly dilated left ventricle. Stress Echo Wall motion Data Resting WM Intermediate WM Stress WM Resting Wall Motion Wall Motion Stress No regional wall motion No regional wall motion abnormalities noted. abnormalities noted. EKG Data The baseline ECG displays normal sinus rhythm. The patient exercised according to the regular Odalis protocol for a total duration of 6:45. The maximum heart rate attained was 137 beats per minute. This was 86% of maximum predicted heart rate. The patient exercised into stage 3 of the Odalis protocol. During stress, there were no ST or T wave changes noted to suggest ischemia. Interpretation Summary The estimated ejection fraction is 50 %. Normal, adequate, treadmill echocardiogram. Negative for ischemia by EKG or echocardiographic anterior. Patient did develop dyspnea and 3 out of 10 chest pain at peak exercise with associated ventricular bigeminy. Appropriate blood pressure response to exercise. Average exercise capacity for age. Final LVEF of 65%. Baseline EF around 50%. No complications. Decreased sensitivity due to poor echo windows requiring Definity agent. Recommend clinical correlation. Ordering Physician: Sacha Coles Referring Physician: Sacha Coles Performed By: Rose Grijalva, RDCS, RVT
== END ==
PROVIDERS: Family Provider Internal Medicine; PCP Internal Medicine; Referring Provider Internal Medicine Cardiovascular Disease; Visit Provider Internal Medicine Cardiovascular Disease
DX: R07.9 Chest pain, unspecified (principal); R06.09 Other forms of dyspnea; I25.10 Atherosclerotic heart disease of native coronary artery without angina pectoris; I25.2 Old myocardial infarction; Z95.5 Presence of coronary angioplasty implant and graft
CPT/HCPCS: 93017; 93350; Q9957; A4216; C8928

== ENCOUNTER → 2018-09-05 10:10 | Outpatient (CLI) | payer BC, SELFPAY ==
[2018-07-04 10:10] VITALS: BMI 31.4
[2018-08-08 11:38] VITALS: BMI 32.2
--- NOTE | 2018-09-05 13:37 | PFT ---
INTRODUCTION: The patient is a 63-year-old male that presents for pulmonary function studies secondary to a diagnosis of shortness of breath. Respiratory therapy reports good patient effort. Bronchodilators were used during testing. INTERPRETATION: Forced expiration spirometry demonstrates no evidence of a large airways obstructive ventilatory defect. There was no significant response to aerosolized bronchodilators. Spirograms are of good quality and plateau normally. Body plethysmography was performed and reveals an elevated TLC and RV, which would be indicative of hyperinflation and air-trapping in the setting of obstruction. Diffusing capacity by single breath CO is within normal limits at 85% of predicted. IMPRESSION: These pulmonary function studies only demonstrate evidence of hyperinflation and air-trapping of unclear significance, given the lack of obstructive lung disease noted on these tests. Diffusing capacity is within normal limits.
--- OUTSIDE RECORDS SUMMARY | 2018-11-10 00:21 | XMS RPT_ITS ---
:1955 Author Organization OHIP Support Name Relationship Address Phone JIA ZIMMERMAN Unavailable [address] + [place] [address] WOOGL Unavailable [address] + [place] [address] JIA ZIMMERMAN Unavailable [address] + [place] [address] WOOGL Unavailable [address] + [place] [address] JIA ZIMMERMAN Unavailable [address] + [place] [address] WOOGL Unavailable [address] + [place] [address] JIA ZIMMERMAN Unavailable [address] + [place] [address] WOOGL Unavailable [address] + [place] [address] JIA ZIMMERMAN Unavailable [address] + [place] [address] WOOGL Unavailable [address] + [place] [address] JIA ZIMMERMAN Unavailable [address] + [place] [address] WOOGL Unavailable [address] + [place] [address] JIA ZIMMERMAN Unavailable [address] + [place] [address] WOOGL Unavailable [address] + [place] [address] JIA ZIMMERMAN Unavailable [address] + [place] [address] WOOGL Unavailable [address] + [place] [address] JIA ZIMMERMAN Unavailable [address] + [place] [address] WOOGL Unavailable [address] + [place] [address] ELSIE, JIA Unavailable [address] + [place] [address] WOOGL Unavailable [address] + [place] [address] ELSIE, JIA Unavailable [address] + [place] [address] WOOGL Unavailable [address] + [place] [address] Elsie, Jia Unavailable . + ., . . WOOGL Unavailable [address] + [place] [address] WOOGL Unavailable [address] + [place] [address] TAYLOR RENE Unavailable [address] + [place] [address] WOOGL Unavailable [address] + [place] [address] TAYLOR RENE Unavailable [address] + [place] [address] Elsie, Jia Unavailable Unavailable + WOOGL Unavailable [address] + [place] [address] Elsie, Jia Unavailable . + ., . . WOOGL Unavailable [address] + [place] [address] TAYLOR RENE Unavailable [address] + [place] [address] WOOGL Unavailable [address] + [place] [address] TAYLOR RENE Unavailable [address] + [place] [address] WOOGL Unavailable [address] + [place] [address] Elsie, Jia Unavailable . + ., . . WOOGL Unavailable [address] + [place] [address] WOOGL Unavailable [address] + [place] [address] Elsie, Jia Unavailable . + ., . . WOOGL Unavailable [address] + [place] [address] WOOGL Unavailable [address] + [place] [address] TAYLOR RENE Unavailable [address] + [place] [address] Jia Zimmerman Unavailable Unavailable + WOOGL Unavailable [address] + [place] [address] Care Team Providers Name Role Phone ALANA ARMAS ([facility]) Attending Unavailable NAEL SHEPHERD Attending Unavailable TALAMPAS, ABEL D Referring Unavailable TALAMPAS, ABEL D Attending Unavailable ALANA ARMAS ([facility]) Referring Unavailable ALANA ARMAS ([facility]) Attending Unavailable TALAMPAS, ABEL D Attending Unavailable [...] Primary Care Unavailable Mack Pittman Admitting Unavailable Marlene Mills Attending Unavailable Mack Pittman Admitting Unavailable Mack Pittman Attending Unavailable Sacha Atkins Referring Unavailable Talampas, Abel Primary Care Unavailable Mack Pittman Consulting Unavailable Mack Pittman Admitting Unavailable Bertha Bedoya Attending Unavailable Sacha Atkins Referring Unavailable Talampas, Abel Primary Care Unavailable AgMack yepez Consulting Unavailable Caryn Daly Attending Unavailable Mack Pittman Admitting Unavailable Bertha Bedoya Attending Unavailable Sacha Atkins Referring Unavailable Talampas, Abel Primary Care Unavailable Ashelfah, Ghasem Consulting Unavailable Sacha Atkins Attending Unavailable Sacha Atkins Referring Unavailable Talampas, Abel Primary Care Unavailable Sacha Atkins Attending Unavailable Sacha Atkins Referring Unavailable Arnoldo Verde D.O. Attending Unavailable Sacha Atkins Referring Unavailable AgyepongMack Admitting Unavailable Ashelfah, Ghasem Attending Unavailable Sacha Atkins Referring Unavailable Talampas, Abel Primary Care Unavailable Ashelfah, Ghasem Consulting Unavailable Agyepong, Mack Admitting Unavailable Ashelfah, Ghasem Attending Unavailable Sacha [...] TYPE CONDITION / CODE ATTENDING STATUS SOURCE 09/13/2018 Unknown Z95.5 - Presence of Sacha Atkins Active [place] coronary angioplasty Community implant and graft / Hospital Z95.5(ICD-10) Repository 09/10/2018 Active Personal history of NA Active [place] other infectious and Clinic Main parasitic diseases / [place] Z86.19(ICD-10) Repository 09/10/2018 Active Other gastritis NA Active [place] without bleeding / Clinic Main K29.60(ICD-10) [place] Repository 09/13/2018 Unknown R06.09 - Other forms Arnoldo Verde, Active [place] of dyspnea / D.O. Community R06.09(ICD-10) Hospital Repository 08/27/2018 Unknown I25.2 - Old Sacha Atkins Active [place] myocardial infarction Community / I25.2(ICD-10) Hospital Repository 08/27/2018 Unknown I25.10 - Sacha Atkins Active [place] Atherosclerotic heart Community disease of [facility] coronary artery Repository without angina pectoris / I25.10(ICD-10) 09/11/2018 Unknown R07.9 - Chest pain, Sacha Atkins Active [place] unspecified / Community R07.9(ICD-10) Hospital Repository 08/08/2018 Unknown E78.5 - Sacha Atkins Active [place] Hyperlipidemia, Community unspecified / Hospital E78.5(ICD-10) Repository 07/02/2018 Active Pain in right foot / NA Active [place] M79.671(ICD-10) Clinic Main [place] Repository 07/12/2015 Active Mixed hyperlipidemia NA Active [place] / E78.2(ICD-10) Clinic Main [place] Repository 03/16/2018 Active 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 pylori Performed By: #### HPYLBR #### [facility] [address] [place], [place] [address] CNNURSE Observed: 09/10/2018 Status: COMPLETED Source: [place] 3:30 PM [facility] REPOSITORY Nurse Visit (TANPWS) MOSHE ZIMMERMAN ([id number]) 1955 M Date Time Provider Department 09/10/18 3:30 PM [place] NURSE THADWS During your visit today, we recorded the following information about you: Eileen Sheriff LPN 09/10/2018 3:56 PM Signed Patient presented for H. Pylori Breath testing per Dr Pablo. Obtained baseline sample at 3:20pm. Patient then drank Pranactin-Citric solution. Waited full 15 minutes and obtained second sample at 2:43pm. Patient tolerated testing well with no problems. LOT # [id number] EXP 08/19/2020 Eileen Sheriff LPN Referring Provider: SELF [200] Allergies As of Date: 09/10/2018 Noted Allergy Reaction LIPITOR (ATORVASTATIN CALCIUM) 06/07/2005 Comments: muscle cramps LODINE (ETODOLAC) 02/18/2008 Comments: depression WELLBUTRIN (BUPROPION HCL) 06/07/2005 Date Reviewed: 08/30/2018 Reviewed by: Melodie Cintron Supervisory Aide - Fully Assessed Reason for Visit: H. [...] CAP* Take 1 capsule by mouth three* LHONAFXTAEF-SFYAHVWOT-ZTL C-M* Take 1 capsule by mouth three* [...] 09/10/18 PROGRESS Observed: 09/10/2018 Status: COMPLETED Source: [place] 3:22 PM [facility] REPOSITORY HNO ID: [id number] Author: Eileen Sheriff LPN Service: (none) Author Type: (none) Type: Progress Notes Filed: 09/10/2018 3:56 PM Note Text: Patient presented for H. Pylori Breath testing per Dr Pablo. Obtained baseline sample at 3:20pm. Patient then drank Pranactin-Citric solution. Waited full 15 minutes and obtained second sample at 2:43pm. Patient tolerated testing well with no problems. LOT # [id number] EXP 08/19/2020 Eileen Sheriff LPN PULMONARY FUNCTION Observed: 09/05/2018 Status: F Source: [place] TEST 1:39 PM [facility] REPOSITORY [facility] Pulmonary Services/Neurology [address] [place] [address] MR#: [id number] Acct: [id number] Name: MOSHE ZIMMERMAN Rep #: [id number] : 1955 63 From: Arnoldo Verde DO Referring Dr: Sacha Atkins MD Status: REG CLI Ordering Dr: Date: Location: [facility] Sex: M C INTRODUCTION: The [...] limits. 09/05/18 1339 <Electronically signed by Arnoldo Verde DO> Date Arnoldo eVrde DO CC: Sacha Atkins MD; Abel Pablo MD Date Dictated: 09/05/181336 Date Transcribed: 09/05/181336 Screen Printing Machine Loader Unloader: VICENTE Signed CNNURSE Observed: 09/03/2018 Status: COMPLETED Source: [place] 9:30 AM [facility] REPOSITORY Nurse Visit (FAMPWS) MOSHE ZIMMERMAN ([id number]) 1955 M Date Time Provider Department 09/03/18 9:30 AM [place] NURSE FAMPWS During your visit today, we [...] Date Reviewed: 08/30/2018 Reviewed by: Melodie Cintron Supervisory Aide - Fully Assessed Reason for Visit: Appointment [...] CAP* Take 1 capsule by mouth three* WLHHYCJKOZU-AFVEOULXA-IYU C-M* Take 1 capsule by mouth three* [...] 09/03/18 PROGRESS Observed: 09/03/2018 Status: COMPLETED Source: [place] 9:22 AM [facility] REPOSITORY O ID: [id number] Author: Eileen Sheriff LPN Service: (none) Author [...] understanding of all instructions. Eileen Sheriff LPN STRESS TEST ECHO W/ Observed: 08/28/2018 Status: F Source: [place] CONTRAST 2:45 PM [facility] REPOSITORY [facility] Cardiovascular Services [address] [place] [address] Stress Test Echo W/Contrast MR#: [id number] Acct: [id number] Name: ELSIE,MOSHE Mcclellan Rep #: [id number] : 1955 63 From: Sacha Atkins MD Primary Care: Abel Pablo MD Status: REG CLI Ordering Dr: Sacha Atkins [...] Dictated: 08/27/18 1312 Date Transcribed: 08/28/18 1445 Screen Printing Machine Loader Unloader: Signed PROGRESS Observed: 08/11/2018 Status: COMPLETED Source: [place] 12:38 PM [facility] REPOSITORY O ID: [id number] Author: Anna Cha (Sommer Huang Service: (none) [...] Encounter for Zostavax administration 05/20/2015 done at [facility] - Raynaud's syndrome - Sciatica - Tobacco abuse - Urinary calculus, unspecified Renal stones--calcium oxalate PAST SURGICAL HISTORY Procedure Laterality Date - COLONOSCOPY W/BX 05/27/10 colonic irritation - EGD W/O RUST SPECIMEN W/BX 05/27/10 duodenal ulcer - PAST [...] Take 1 capsule by mouth once daily. Xikcvyggugr-Ayigrucri-Qrb C-Mn (GLUCOSAMINE CHONDROITIN MAXSTR) 500-400 mg cap [...] Patient agreeable to treatment plan. Anna Huang APRN.PASCUAL CNOV Observed: 08/11/2018 Status: COMPLETED Source: [place] 11:15 AM [facility] REPOSITORY Office Visit (WSTR) MOSHE ZIMMERMAN ([id number]) 1955 M Date Time Provider Department 08/11/18 11:15 AM ANNA HUANG (BLANCHING MACHINE OPERATOR) [facility] During your visit today, we recorded the following information about you: Temperature Pulse Respiration Blood pressure 97.7 degrees 58/minute 12/minute 132/80 Weight 104.9 kg Anna Huang APRN.CNP 08/11/2018 12:42 PM Signed Subjective HPI Patient [...] Encounter for Zostavax administration 05/20/2015 done at [facility] - Raynaud's syndrome - Sciatica - Tobacco abuse - Urinary calculus, unspecified Renal stones--calcium oxalate PAST SURGICAL HISTORY Procedure Laterality Date - COLONOSCOPY W/BX 05/27/10 colonic irritation - EGD W/O RUST SPECIMEN W/BX 05/27/10 duodenal ulcer - PAST [...] Take 1 capsule by mouth once daily. Zssvvihzvqy-Czyzxerkr-Dny C-Mn (GLUCOSAMINE CHONDROITIN MAXSTR) 500-400 mg cap [...] Patient agreeable to treatment plan. Anna Huang APRN.WATER TAXI DRIVER Referring Provider: SELF [200] Allergies As of [...] Take 1 capsule by mouth once * AQJGCXEJPWD-PDWJFPSBU-YIR C-M* Take 1 capsule by mouth three* [...] CARDIOLOGY VISIT Observed: 08/08/2018 Status: F Source: [place] REPORT 12:15 PM [facility] REPOSITORY [facility] [address] [place] [address] OFFICE VISIT Date of Service: 08/08/18 MR#: [id number] Acct: [id number] Name: MOSHE ZIMMERMAN Rep #: [id number] : 1955 Provider: Sacha Atkins MD Age/Sex: 63/M Location: [facility] Status: Signed HPI HPI Chief Complaint: chest [...] 75%-->0%, no dissection. 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 [...] very heavy. Apparently had this preceding his [place]. They do not occur with exertion. He [...] Intake Visit Reasons: 2 WK S/P PCI Shuttle Buggy Operator Required: No Is patient in pain?: No [...] .COMPLEX #30 tab 08/08/18 [Rx Confirmed 08/08/18] [facility] Medical History Dyspnea on exertion (Acute) History of inferior wall myocardial infarction (Chronic 07/04/18) Nicotine dependence (Chronic) Hyperlipidemia (Chronic) Essential (primary) hypertension (Chronic) Atherosclerosis of coronary artery of [place] heart without angina pectoris (Chronic) Acute inferior [...] Plan 1. Atherosclerosis of coronary artery of [place] heart without angina pectoris I25.10 UWQ-EOL-Qgqx-Mid RCA w/ 3.0 x 28 mm and [...] which was not present prior to his IL. I recommended that he discontinue his Brilinta, [...] 3 Diagnoses Atherosclerosis of coronary artery of [place] heart without angina pectoris I25.10 Hyperlipidemia E78.5 Coding Level of Care Code Off vis,est,level 3 Diagnoses Atherosclerosis of coronary artery of [place] heart without angina pectoris I25.10 Hyperlipidemia E78.5 08/08/18 1215 <Electronically signed by Sacha Atkins MD> Date Sacha Atkins MD Cosigner Signature: Date (if applicable) CC: Abel Pablo MD 12 LEAD EKG PERFORMED Observed: 08/08/2018 Status: F Source: [place] BY AYUSH 11:43 AM [facility] REPOSITORY [facility] [address] [place] [address] 12 Lead EKG performed by AYUSH 08/08/18 1142 MR#: [id number] Acct: [id number] Name: MOSHE ZIMMERMAN Rep #: [id number] : 1955 63 From: Sacha Atkins MD Attending Dr: Sacha Atkins MD Status: DEP AMB Ordering Dr: Sacha Atkins MD Date: 08/08/18 Location: [facility] Sex: M C Admitted: [facility]/12 Lead EKG performed by [facility] Sinus Bradycardia -Inferior infarct -age undetermined. ABNORMAL 08/09/18 1012 <Electronically signed by Sacha Atkins MD> Date Sacha Atkins MD CC: Abel Pablo MD Date Dictated: 08/08/18 1142 Date Transcribed: 08/08/18 114 Screen Printing Machine Loader Unloader: DN Signed CR - HISTORY AND Observed: 08/06/2018 Status: F Source: [place] PHYSICAL 1:11 PM [facility] REPOSITORY [facility] Cardiac Rehab [address] [place] [address] CR - History AND Physical MR#: [id number] Acct: [id number] Name: MOSHE ZIMMERMAN Rep #: [id number] : 1955 63 From: Annette White RN [...] Advanced Directives - Advanced Directives Power of Management Trainee: No Living Will: No Advance Directives Information [...] (Chronic) I10 Atherosclerosis of coronary artery of [place] heart without angina pectoris (Chronic) I25.10 SID-PDV-Zesm-Mid RCA w/ 3.0 x 28 mm and [...] stent placement (Chronic) Onset Date: 07/04/18 Z95.5 AYE-DNK-Zmuq-Mid RCA w/ 3.0 x 28 mm and [...] = Denies (Slash). Left click = Reports ([place]) Review of Present Symptoms: Reports: Shortness of [...] 1311 <Electronically signed by Sacha Atkins MD> [facility] Signature: Date Sacha Atkins MD CC: Signed PROGRESS Observed: 08/06/2018 Status: COMPLETED Source: [place] 7:51 AM [facility] REPOSITORY HNO ID: [id number] Author: Nael Shepherd Service: (none) Author Type: Physician Type: Progress [...] Encounter for Zostavax administration 05/20/2015 done at [facility] - Raynaud's syndrome - Sciatica - Tobacco [...] Take 1 capsule by mouth once daily. Zqilmmvisic-Rnhiuyugk-Sfq C-Mn (GLUCOSAMINE CHONDROITIN MAXSTR) 500-400 mg cap [...] Occupational History Occupation Employer Comment [employer] Social History Main Topics Smoking status: Former [...] DPM PROGRESS Observed: 08/06/2018 Status: COMPLETED Source: [place] 7:46 AM [facility] REPOSITORY HNO ID: [id number] Author: Mirlande Cotter RN Service: (none) Author [...] both helped. He has xrays to review. [place] Observed: 08/06/2018 Status: COMPLETED Source: [place] 7:40 AM [facility] REPOSITORY Office Visit (PODIWS) MOSHE ZIMMERMAN ([id number]) 1955 M Date Time Provider Department 08/06/18 7:40 AM NAEL SHEPHERDS During your visit today, we recorded the [...] helped. He has xrays to review. Nael ShepherdANCELMO 08/06/2018 12:12 PM Signed Initial Podiatric Office [...] Encounter for Zostavax administration 05/20/2015 done at [facility] - Raynaud's syndrome - Sciatica - Tobacco [...] Take 1 capsule by mouth once daily. Cqpfpbkucul-Rixjjzkyh-Yaq C-Mn (GLUCOSAMINE CHONDROITIN MAXSTR) 500-400 mg cap [...] W/BX 05/27/10 [facility] 05/27/10 duodenal ulcer - PAST [...] Occupational History Occupation Employer Comment [employer] Social History Main Topics Smoking status: Former [...] Can purchase at [employer] here in [place], [employer] in [place] or [place]. Also can find in [employer] in [facility]. [employer]steps can also be purchased [...] Take 1 capsule by mouth once * GAZCDQSMOSG-NHTUZJRUE-NDQ C-M* Take 1 capsule by mouth three* [...] Powerstep Original Full length. Can purchase at [employer] here in [place], [employer] in [place] or [place]. Also can find in [employer] in [facility]. Powersteps can also be purchased [...] LEAD ELECTROCARDIOGRAM Observed: 07/26/2018 Status: F Source: [place] 3:17 PM [facility] REPOSITORY [facility] Cardiovascular Services [address] [place] [address] 12 Lead EKG 07/24/18 0953 MR#: [id number] Acct: [id number] Name: MOSHE ZIMMERMAN Rep #: [id number] : 1955 63 From: Jose Elias MD Attending Dr: Sacha Atkins MD Status: DEP [facility] [place]ing Dr: Sacha Atkins MD Date: 07/24/18 Location: [facility] Sex: M C Admitted: Test Reason [...] No significant change was found Confirmed by JOSE ELIAS MD ([id number]), writer editor ALFREDO FARMER ([id number]) on 07/26/2018 3:17:15 PM Referred By: Sacha Atkins Confirmed By:JOSE ELIAS MD 07/26/18 1517 Date Jose Elias MD CC: Sacha Atkins MD; Abel Pablo MD Signed DISCHARGE INSTRUCTION Observed: 07/25/2018 Status: F Source: [place] 8:07 AM [facility] REPOSITORY [facility] Medical Records Department [address] [place] [address] Instructions for Home/Discharge Instructions 07/24/18 1640 MR#: [id number] Acct: [id number] Name: MOSHE ZIMMERMAN Rep #: [id number] : 1955 63 From: Bonilla Lew BLANCHING MACHINE OPERATORAshley PCP: Abel Pablo MD Status: REG SDC Discharge Diet: Low fat/ Low Cholesterol Discharge [...] to stop this medication, please call the [facility] [place] [facility] office first at [phone] Allergies/Adverse Reactions: Allergies etodolac Allergy (Severe, Verified [...] patient's physical, psychological, and social functioning. Health adult live in caregiver work in cardiac rehabilitation programs and assist you with getting the treatments you need to get stronger and healthier - like exercise, healthy eating habits, and medications. Cardiac rehabilitation has been show to help people with heart problems live longer and have better life enjoyment than people who do not go to cardiac rehabilitation. Please contact the Cardiac Rehabilitation Program at [facility] at in two weeks if you have not heard from them. 07/25/18 0807 <Electronically signed by Bonilla MALDONADO> Date Bonilla MALDONADO CC: Abel Pablo MD CBC-COMPLETE BLOOD CNT Collected: 07/25/2018 Status: F Source: [place] NO DIFF 4:00 AM [facility] REPOSITORY TYPE CODE TESTS RESULT OUT OF [...] MPV 9.9 Performed By: #### L100.0500 #### [facility] [address], [address] BASIC METABOLIC Collected: 07/25/2018 Status: F Source: [place] PROFILE (BMP) 4:00 AM [facility] REPOSITORY TYPE CODE TESTS RESULT OUT OF [...] Normal 8 Performed By: #### L500.2500 #### [facility] [address] [facility] [place] [facility] [address] ACT ACTIVATED CLOTTING Collected: 07/24/2018 Status: F Source: [place] TIME 9:19 AM [facility] REPOSITORY TYPE CODE TESTS RESULT OUT OF RANGE REFERENCE UNITS LAB L9100.0100 74-137 sec High ACTk CLOT 180 TIME Performed By: #### L9100.0100 #### [facility] Point of Care [address] [place] [address] 12 LEAD ELECTROCARDIOGRAM Observed: 07/19/2018 Status: F Source: [place] 9:19 AM [facility] REPOSITORY [facility] Cardiovascular Services [address] [place] [address] 12 Lead EKG 07/05/18 0501 MR#: [id number] Acct: [id number] Name: MOSHE ZIMMERMAN Rep #: [id number] : 1955 63 From: Jose Elias MD Attending Dr: Marlene Mills Status: DIS IN Ordering Dr: Bertha Bedoya MD Date: 07/05/18 Location: [facility] Sex: M C Admitted: 07/04/18 Test Reason [...] UNCONFIRMED Confirmed by BECCA PERALTA, JOSE ([id number]), writer editor ALFREDO FARMER (56) on 07/12/2018 2:09:04 PM Referred By: Sacha Atkins Confirmed By:JOSE ELIAS MD 07/12/18 1409 Date Jose Elias MD CC: Bertha Bedoya MD; Sacha Atkins MD; Marlene Mills; Abel Pablo MD Signed 12 LEAD ELECTROCARDIOGRAM Observed: 07/19/2018 Status: F Source: [place] 9:19 AM [facility] REPOSITORY [facility] Cardiovascular Services [address] [place] [address] 12 Lead EKG 07/04/18 0712 MR#: [id number] Acct: [id number] Name: MOSHE ZIMMERMAN Rep #: [id number] : 1955 63 From: Jose Elias MD [...] IS UNCONFIRMED Confirmed by JOSE ELIAS MD ([id number]), writer editor ALFREDO FARMER (56) on 07/12/2018 2:10:00 PM Referred By: Sacha Atkins Confirmed By:JOSE ELIAS MD 07/12/18 1410 Date Jose Elias MD CC: Bertha Bedoya MD; Sacha Atkins MD; Marlene Mills; Abel Pablo MD Signed 12 LEAD ELECTROCARDIOGRAM Observed: 07/19/2018 Status: F Source: [place] 9:18 AM [facility] REPOSITORY [facility] Cardiovascular Services [address] [place] [address] 12 Lead EKG 07/06/18 0604 MR#: [id number] Acct: [id number] Name: MOSHE ZIMMERMAN Rep #: [id number] : 1955 63 From: Jose Elias MD Attending Dr: Marlene Mills Status: DIS IN Ordering Dr: Bertha Bedoya MD Date: 07/06/18 Location: [facility] Sex: M C Admitted: 07/04/18 Test Reason [...] UNCONFIRMED Confirmed by JOSE ELIAS MD ([id number]), writer editor ALFREDO FARMER (56) on 07/12/2018 2:00:45 PM Referred By: Sacha Atkins Confirmed By:JOSE ELIAS MD 07/12/18 1400 Date Jose Elias MD CC: Bertha Bedoya MD; Sacha Atkins MD; Marlene Mills; Abel Pablo MD Signed 12 LEAD ELECTROCARDIOGRAM Observed: 07/19/2018 Status: F Source: [place] 9:08 AM [facility] REPOSITORY [facility] Cardiovascular Services [address] [place] [address] 12 Lead EKG 07/04/18 0421 MR#: [id number] Acct: [id number] Name: MOSHE ZIMMERMAN Rep #: [id number] : 1955 63 From: Jose Elias MD Attending Dr: Marlene Mills Status: DIS IN Ordering Dr: Laurent Long MD Date: 07/04/18 Location: [facility] Sex: M C Admitted: 07/04/18 Test Reason [...] T wave abnormality, consider lateral ischemia ACUTE IL / STEMI Consider right ventricular involvement in acute inferior infarct Abnormal ECG Confirmed by JOSE ELIAS MD ([id number]), writer editor ALFREDO FARMER (58) on 07/05/2018 3:45:44 PM Referred By: Sacha Atkins Confirmed By:JOSE ELIAS MD 07/05/18 1545 Date Jose Elias MD CC: Sacha Atkins MD; Marlene Mills; Abel Pablo MD; Laurent Long MD Signed CARDIOLOGY VISIT Observed: 07/16/2018 Status: F Source: [place] REPORT 11:30 AM [facility] REPOSITORY [facility] [address] [place] [address] OFFICE VISIT Date of Service: 07/16/18 MR#: [id number] Acct: [id number] Name: MOSHE ZIMMERMAN Rep #: [id number] : 1955 Provider: Sacha Atkins MD Age/Sex: 63/M Location: [facility] Status: Signed HPI HPI Chief Complaint: chest [...] dyspnea on exertion. 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 [...] Intake Visit Reasons: 2 WK PCI (ARIEL) Shuttle Buggy Operator Required: No Accompanied by: Ex Is patient [...] hypertension (Chronic) Atherosclerosis of coronary artery of quinault heart without angina pectoris (Acute) Acute inferior [...] Plan 1. 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, I have decided to proceed with intervention [...] 3 Diagnoses Atherosclerosis of coronary artery of quina[place] heart without angina pectoris I25.10 Hyperlipidemia E78.5 Coding Level of Care Code Off vis,est,level 3 Diagnoses Atherosclerosis of coronary artery of quinault heart without angina pectoris I25.10 Hyperlipidemia E78.5 07/16/18 1130 <Electronically signed by Sacha Atkins MD> Date Sacha Atkins MD [facility] Signature: Date (if applicable) CC: Abel Pablo MD PROGRESS Observed: 07/08/2018 Status: COMPLETED Source: [place] 12:50 PM [facility] REPOSITORY HNO ID: [id number] Author: Alana Armas Service: (none) Author Type: Nurse Practitioner Type: Progress Notes Filed: 07/08/2018 2:15 PM Note Text: 07/08/2018 Patient presents with: Hospital F/U SUBJECTIVE: This is a 63 year old that is here today for Hospital Discharge Follow up. He was seen in [facility] ER 07/04/18 and kept overnight until 07/05/18. [...] STEMI on EKG and sent immediately to laborer [facility]. Per pt he had a 100% blockage [...] at risk. His father had his first IL at 39 and from one at age 41. He denies any CP or SOB. Per [facility] ER records, he did have a STEMI [...] potential risks related to using this and [place]. He agrees to try a nonbenzo medication for the anxiety. PAST MEDICAL HISTORY Diagnosis Date - Displacement of lumbar intervertebral disc without myelopathy - Encounter for Zostavax administration 05/20/2015 done at [facility] - Raynaud's syndrome - Sciatica - Tobacco [...] up to 30 days.Earliest Fill Date: 04/05/18 Zozvkvphysw-Ibyjjotue-Nyy C-Mn (GLUCOSAMINE CHONDROITIN MAXSTR) 500-400 mg cap Take 1 capsule by mouth three times daily. No current facility-administered medications for this visit. Medications and allergies reviewed by this provider. SOCIAL HISTORY Social History Marital status: Spouse name: Jia Years of education: Number of children: Occupational History Occupation Employer Comment [employer] Social History Main Topics Smoking status: [...] HYDROXYZINE PAMOATE 25 MG CAPSULE Alana Armas APRN.PASCUAL CNOV Observed: 07/08/2018 Status: COMPLETED Source: [place] 8:20 AM [facility] REPOSITORY [facility]IMMER[facility] ([id number]) 1955 M Date Time Provider Department 07/08/18 8:20 AM ALANA ARMAS (PASCUAL) ALO During your visit today, we recorded the following information about you: Pulse Respiration Blood pressure Weight 55/minute 20/minute 138/82 100.7 kg Alana Armas APRN.CNP 07/08/2018 2:15 PM Signed Transitional Care Management [...] July 08, 2018 8:14 AM Alana Armas APRN.CNP 07/08/2018 2:15 PM Signed 07/08/2018 Patient presents with: Hospital F/U SUBJECTIVE: This is a 63 year old that is here today for Hospital Discharge Follow up. He was seen in [facility] ER 07/04/18 and kept overnight until 07/05/18. [...] STEMI on EKG and sent immediately to laborer [facility] farm. Per pt he had a 100% blockage that was stented with 3 stents and he is planning to return 12/10 for more stents to a 75% blockage [...] at risk. His father had his first IL at 39 and from one at age 43. He denies any CP or SOB. Per [facility] ER records, he did have a STEMI [...] potential risks related to using this and [place]. He agrees to try a nonbenzo medication for the anxiety. PAST MEDICAL HISTORY Diagnosis Date - Displacement of lumbar intervertebral disc without myelopathy - Encounter for Zostavax administration 05/20/2015 done at [facility] - Raynaud's syndrome - Sciatica - Tobacco [...] up to 30 days.Earliest Fill Date: 04/05/18 Fugwobivgog-Zsnmsfthq-Ovi C-Mn (GLUCOSAMINE CHONDROITIN MAXSTR) 500-400 mg cap Take 1 capsule by mouth three times daily. No current facility-administered medications for this visit. Medications and allergies reviewed by this provider. SOCIAL HISTORY Social History Marital status: Spouse name: Jia Years of education: Number of children: Occupational History Occupation Employer Comment [employer] Social History Main Topics Smoking status: Current [...] HYDROXYZINE PAMOATE 25 MG CAPSULE Alana Armas APRN.WATER TAXI DRIVER Referring Provider: SELF [200] Allergies As of [...] MG-ACETAMINOPHE* Take 2 tablets by mouth twice* IVSQRYQGZDK-TCRLWYMQX-CTW C-M* Take 1 capsule by mouth three* [...] 07/08/18 PROGRESS Observed: 07/08/2018 Status: COMPLETED Source: [place] 8:12 AM [facility] REPOSITORY HNO ID: [id number] Author: Alana Louie) Mary Service: (none) Author Type: Nurse Practitioner [...] DISCHARGE SUMMARY Observed: 07/06/2018 Status: F Source: [place] 11:28 AM [facility] REPOSITORY [facility] Medical Records Department [address] [place] [id number] Discharge Summary 07/06/18 1121 MR#: [id number] Acct: [id number] Name: MOSHE ZIMMERMAN Rep #: [id number] : 1955 63 From: Marlene Mills MD PCP: Abel Pablo MD Status: ADM IN Y Location: [place] [address] Discharge Date and Diagnosis - Problem List Patient Problems: Active and Suspected Problems (Last Updated 07/04/18 @ 12:15 by Caryn Daly) Chest pain (Acute) Date of Admission: 07/04/18 Date of Discharge: 07/06/18 - Primary Discharge Diagnosis Active and Suspected Problems (Last Updated 07/04/18 @ 12:15 by Caryn Daly) #[address] elevation IL, status post DENNIS to mid RCA. #2 [...] was diagnosed with acute inferior ST elevation IL and he underwent emergent cardiac catheterization. Cardiac [...] Sandi at discharge?: Yes Done w/ Acute IL measure.: Yes Code Visit Inpatient E AND M: 56263 Disch Hosp 07/06/18 1128 <Electronically signed by Marlene Mills MD> Date Marlene Mills MD Cosigner Signature (if applicable): Date CC: Sacha Atkins MD; Marlene Mills; Abel Pablo MD Signed DISCHARGE INSTRUCTION Observed: 07/06/2018 Status: F Source: [place] 8:02 AM [facility] REPOSITORY [facility] Medical Records Department [address] [place] [address] Instructions for Home/Discharge Instructions 07/06/18 0801 MR#: [id number] Acct: [id number] Name: MOSHE ZIMMERMAN Rep #: [id number] : 1955 63 From: Marlene Mills MD [...] MD When: please call his office. 07/06/18 08 <Electronically signed by Marlene Mills MD> Date Marlene Mills MD CC: Abel Pablo MD CBC-COMPLETE BLOOD CNT Collected: 07/05/2018 Status: F Source: [place] NO DIFF 3:20 AM [facility] REPOSITORY TYPE CODE TESTS RESULT OUT OF [...] MPV 9.4 Performed By: #### L100.0500 #### [facility] [address] [place], [address] COMPREHENSIVE METABOLIC Collected: 07/05/2018 Status: F Source: [facility] 3:20 AM [facility] REPOSITORY TYPE CODE TESTS RESULT OUT OF [...] Normal 8 Performed By: #### L500.4050 #### [facility] [address] [facility] [address] [place], [address] LIPID PROFILE Collected: 07/05/2018 Status: F Source: [place] 3:20 AM [facility] REPOSITORY Order Comment: Comments: Please run on [...] VLDL 13 Performed By: #### L500.4100 #### [facility] [address] [place], [address] ECHOCARDIOGRAM COMPLETE Observed: 07/04/2018 Status: F Source: [place] 2:32 PM [facility] REPOSITORY [facility] Cardiovascular Services [address] [place] [address] Echo Complete 07/04/18 0903 MR#: [id number] Acct: [id number] Name: MOSHE ZIMMERMAN Rep #: [id number] : 1955 63 From: Sacha Atkins MD Attending Dr: Marlene Mills Status: ADM IN Ordering Dr: Bertha Bedoya MD Date: 07/04/18 Location: ICU Sex: M C Admitted: 07/04/18 Reason For Study: S/P IL Procedure This was a 2D Doppler, Color [...] Dictated: 07/04/18 0903 Date Transcribed: 07/04/18 105 Screen Printing Machine Loader Unloader: Signed CONSULTATION Observed: 07/04/2018 Status: F Source: [place] 6:51 AM [facility] REPOSITORY [facility] Medical Records Department [address] [place] [address] Consultation 07/04/18 0646 MR#: [id number] Acct: [id number] Name: MOSHE ZIMMERMAN Rep #: [id number] : 1955 63 From: Bertha Bedoya MD PCP: Abel Pablo MD Status: ADM IN Y Location: ICU [place] [address] Reason for Consult Date of Consultation: 07/04/18 [...] % (Auto) 50.8, Lymph % (Auto) 35.2, Pratt % (Auto) 10.8 H, Eos % (Auto) [...] ACTIVATED CLOTTING Collected: 07/04/2018 Status: F Source: [place] TIME 6:29 AM [facility] REPOSITORY TYPE CODE TESTS RESULT OUT OF RANGE REFERENCE UNITS LAB L9100.0100 74-137 sec High ACTk CLOT 340 TIME Performed By: #### L9100.0100 #### [facility] Point of Care [address] [place], [place] [address] HISTORY AND PHYSICAL Observed: 07/04/2018 Status: F Source: [place] EXAM 5:53 AM [facility] REPOSITORY [facility] Medical Records Department [address] [place] [address] History and Physical 07/04/18 0448 MR#: [id number] Acct: [id number] Name: MOSHE ZIMMERMAN Rep #: [id number] : 1955 63 From: Mack Pittman MD PCP: Abel Pablo MD Status: ADM IN Y Location: ICU [id number] Problem List (1) Chest pain Status: Acute [...] ED and patient was wheeled to the Agricultural Engineering Teacher for cardiac catheterization. Past Medical History Medical [...] pain and found to have ST elevation IL. ST elevation IL Independent review of EKG showed T wave inversion in inferior leads and reciprocal inversions in lead I, aVL and V2. Patient was taken to the Agricultural Engineering Teacher after receiving Brilinta and heparin. Patient came to the hospital with squad. He took one aspirin at home. Patient was wheeled to laborer brooder farm after seeing cardiology at the ED. Follow up with further cardiology recommendations. Hyperlipidemia Patient takes Crestor at home. Follow-up with cardiology recommendations. Hypertension Blood pressure on admission was not within goal. Follow up with further heart medications after cardiac cath. Tobacco abuse Counseled NicoDerm patch ordered. DVT prophylaxis Received heparin at the ED SCD ordered Code Visit Inpatient Eleuterio AND M: 08039 Init Hosp L3 07/04/18 0553 <Electronically signed by Mack Pittman MD> Date Mack Pittman MD Cosigner Signature: Date (if applicable) CC: Mack Pittman MD; Abel Pablo MD Signed ACT ACTIVATED CLOTTING Collected: 07/04/2018 Status: F Source: [place] TIME 4:59 AM [facility] REPOSITORY TYPE CODE TESTS RESULT OUT OF RANGE REFERENCE UNITS LAB L9100.0100 74-137 sec Normal ACTk CLOT 125 TIME Performed By: #### L9100.0100 #### [facility] Point of Care [address] [place] [address] EMERGENCY DEPARTMENT Observed: 07/04/2018 Status: F Source: [place] SUMMARY 4:31 AM [facility] REPOSITORY [facility] Medical Records Department [address] [place] [address] Emergency Department Summary 07/04/18 0427 MR#: [id number] Acct: [id number] Name: MOSHE ZIMMERMAN Rep #: [id number] : 1955 63 From: Laurent Long MD [...] Emergent EKG shows an inferior ST elevation IL with reciprocal changes. STEMI team was activated. Patient was given heparin Brilinta as well as aspirin. I talked to the back end engineer for emergent catheterization. Disposition: Admit to the hospital Impression: Acute ST elevation myocardial infarction This note was generated with [employer] dictation software. It may contain incorrect words, [...] problems, contact your Primary Care Provider. Call [facility] ([phone]) or report to the closest Emergency Room. Call 911 if necessary. 07/04/18 0431 <Electronically signed by Laurent Long MD> Date Laurent Long MD Cosigner Signature (If Indicated): Date CC: Alonso Lamar MD; Abel Pablo MD CHEST 1 VIEW Observed: 07/04/2018 Status: F Source: [place] (PORTABLE) 4:28 AM [facility] REPOSITORY [facility] Imaging Services [facility] [place] [address] [place] [address] Chest 1 View (Portable) MR#: [id number] Acct: [id number] Name: MOSHE ZIMMERMAN Rep #: [id number] : 1955 M 63 From: Katarina Gaona MD PCP: Abel Pablo MD Status: REG ER Study: Chest 1 View (Portable) Date of Exam: 07/04/18 Exam# [id number] Ordering Dr: Laurent Long MD STUDY: X-RAY [...] CC: Abel Pablo MD; Laurent Long MD Screen Printing Machine Loader Unloader: Signed CBC W/DIFF, AUTOMATED Collected: 07/04/2018 Status: F Source: [place] 4:22 AM [facility] REPOSITORY TYPE CODE TESTS RESULT OUT OF [...] Lymph 2.35 Performed By: #### L100.0100 #### [facility] [address] [place] [address], [address] PROTHROMBIN TIME W/INR Collected: 07/04/2018 Status: F Source: [place] 4:22 AM [facility] REPOSITORY TYPE CODE TESTS RESULT OUT OF RANGE REFERENCE UNITS LAB L300.4150 11.7-14.9 SECONDS Normal PROTIME 12.8 LAB L300.4200 Normal INR 1.0 Performed By: #### L300.3900, L300.4310 #### [facility] [address] [place], [place], [address] PARTIAL THROMBOPLAST Collected: 07/04/2018 Status: F Source: [place] TIME 4:22 AM [facility] REPOSITORY TYPE CODE TESTS RESULT OUT OF RANGE REFERENCE UNITS LAB L300.4310 24.1-36.2 Seconds Normal PTT 31.9 Performed By: #### L300.3900, L300.4310 #### [facility] [address] [place], [address] BASIC METABOLIC Collected: 07/04/2018 Status: F Source: [place] PROFILE (BMP) 4:22 AM [facility] REPOSITORY TYPE CODE TESTS RESULT OUT OF [...] 8 Performed By: #### L500.2500, L501.4010 #### [facility] [address] [place], [address] TROPONIN-I Collected: 07/04/2018 Status: F Source: [place] 4:22 AM [facility] REPOSITORY TYPE CODE TESTS RESULT OUT OF RANGE REFERENCE UNITS LAB L501.4010 <0.045 ng/mL High alert 1.470 TROPONIN-I Result Comment: Critical Result(s) Called at: 04:59:02 07/04/2018 by: YAHIR MERCADO to Alisha Samaniego TROPONIN-I EXPECTED VALUES <0.045 Negative 0.045 - 0.590 Consistent with Cardiac Damage > OR = 0.600 Critical Value Not every elevated troponin is indicative of IL. These values should be used with clinical judgement in examining the patient's clinical picture for diagnosis. To establish a diagnosis of IL versus myocardial injury, there must be a demonstrated rise and/or fall in the troponin values, in addition to ischemic symptoms, EKG changes, new regional wall motion abnormality, and/or angiographical evidence. PLEASE NOTE: REFERENCE RANGES EDITED 17 Performed By: #### L500.2500, L501.4010 #### [facility] [address] [place], [address] MAGNESIUM Collected: 07/04/2018 Status: F Source: [place] 4:22 AM [facility] REPOSITORY Order Comment: Comments: add on to am lab TYPE CODE TESTS RESULT OUT OF RANGE REFERENCE UNITS LAB L501.5200 1.6-2.6 mg/dL Normal MG 1.8 Performed By: #### L501.5200 #### [facility] [address] [place], [address] XR FOOT 3V AP/LAT/OBL Observed: 07/02/2018 Status: F Source: [place] RT 11:59 AM [facility] REPOSITORY * * *Final Report* * * [...] longitudinal arch. IMPRESSION: Degenerative changes as discussed. Screen Printing Machine Loader Unloader: ANGE Transcribe Date/Time: Jul 02 2018 4:18P Dictated by : CORDELL CHEN, DO This examination was interpreted and the report reviewed and electronically signed by: CORDELL CHEN DO on Jul 02 2018 4:19PM EST [id number] PROGRESS Observed: 07/02/2018 Status: COMPLETED Source: [place] 11:52 AM [facility] REPOSITORY HNO ID: [id number] Author: Olesya Troncoso (Tech) Service: (none) Author Type: Client Resolution Specialist Type: Progress Notes Filed: 07/02/2018 11:59 AM [...] AM PROGRESS Observed: 07/02/2018 Status: COMPLETED Source: [place] 11:30 AM [facility] REPOSITORY HNO ID: [id number] Author: Alana Armas Service: (none) Author Type: [...] foot yet. He has not seen a scientific photographer since Dr. Verde left, but would like to. PAST MEDICAL HISTORY Diagnosis Date - Displacement of lumbar intervertebral disc without myelopathy - Encounter for Zostavax administration 05/20/2015 done at [facility] - Raynaud's syndrome - Sciatica - Tobacco [...] 0.5 tablets by mouth daily at bedtime. Pzapgfxitij-Jbvqvngzj-Gvt C-Mn (GLUCOSAMINE CHONDROITIN MAXSTR) 500-400 mg cap [...] SOPHIE Martinez Observed: 07/02/2018 Status: COMPLETED Source: [place] 11:20 AM [facility] REPOSITORY Office Visit (FAMPWS) MOSHE ZIMMERMAN ([id number]) 1955 M Date Time Provider Department 07/02/18 11:20 AM ALANA ARMAS (PASCUAL) FAMPWS During your visit today, we recorded [...] foot yet. He has not seen a scientific photographer since Dr. Verde left, but would like to. PAST MEDICAL HISTORY Diagnosis Date - Displacement of lumbar intervertebral disc without myelopathy - Encounter for Zostavax administration 05/20/2015 done at [facility] - Raynaud's syndrome - Sciatica - Tobacco [...] 0.5 tablets by mouth daily at bedtime. 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 Take with food. Encounter Status:Closed by ALANA ARMAS on 07/02/18 PROGRESS Observed: 05/21/2018 Status: COMPLETED Source: [place] 12:36 PM [facility] REPOSITORY O ID: [id number] Author: Abel Pablo Service: (none) Author Type: [...] Encounter for Zostavax administration 05/20/2015 done at [facility] - Raynaud's syndrome - Sciatica - Tobacco [...] 0.5 tablets by mouth daily at bedtime. Bgwkuhnnqxl-Bkfmtylwd-Lkr C-Mn (GLUCOSAMINE CHONDROITIN MAXSTR) 500-400 mg cap [...] Abs Lymph 1.00 - 4.00 k/uL 1.94 Pratt% % 8.5 Abs Pratt 0.00 - 0.86 k/uL 0.59 Eosin% % [...] counseling and/or coordinating care for the patient. Uwtj-rc-gitv time was at least 25 minutes. Abel Pablo MD PROGRESS Observed: 05/21/2018 Status: COMPLETED Source: [place] 12:20 PM [facility] HNO ID: [id number] Author: Rebeka Perez LPN Service: (none) Author Type: (none) Type: Progress Notes Filed: 06/05/2018 7:59 AM Note Text: 63 year old male here for INACTIVATED INFLUENZA VACCINE. 5776-7710 Season Patient is identified by name and date of : Yes [] CONTRAINDICATIONS color enhanced section Age less than 6 months? No Allergy to eggs, chicken, chicken feathers, or chicken dander? No Allergy to thimerosal (a preservative) or formaldehyde, gelatin? No History of severe reaction to any vaccine component or a previous dose of influenza vaccination? 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 Yes See immunization activity in [facility] for details of immunizations adminstered today. Patient age: [age] year old For The Flu Season 6-35 months old: Fluzone 0.25 [...] 05/21/2018 Status: COMPLETED Source: [place] 11:20 AM [facility] REPOSITORY Office Visit (INTMWS) MOSHE ZIMMERMAN ([id number]) 1955 M Date Time Provider Department 05/21/18 11:20 AM ABEL PABLO INTMWS During your visit today, we recorded the following information about you: Pulse Respiration Blood pressure Weight 64/minute 16/minute 128/74 98.9 kg Rebeka Perez ARNULFO 06/05/2018 7:59 AM Signed 63 year old male here for INACTIVATED INFLUENZA VACCINE. 4454-2044 Season Patient is identified by name and date of : Yes [] CONTRAINDICATIONS color enhanced section Age less than 6 months? No Allergy to eggs, chicken, chicken feathers, or chicken dander? No Allergy to thimerosal (a preservative) or formaldehyde, gelatin? No History of severe reaction to any vaccine component or a previous dose of influenza vaccination? 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 Yes See immunization activity in [facility] for details of immunizations adminstered today. Patient age: [age] year old For The 9435-1140 Flu Season 6-35 months old: Fluzone 0.25 [...] a second dose in one months time. Able Pablo MD 06/05/2018 7:59 AM Signed Patient [...] Encounter for Zostavax administration 05/20/2015 done at [facility] - Raynaud's syndrome - Sciatica - Tobacco [...] 0.5 tablets by mouth daily at bedtime. Vpwiyaupbqe-Medquebtu-Cxx C-Mn (GLUCOSAMINE CHONDROITIN MAXSTR) 500-400 mg cap [...] Abs Lymph 1.00 - 4.00 k/uL 1.94 Pratt% % 8.5 Abs Pratt 0.00 - 0.86 k/uL 0.59 Eosin% % [...] counseling and/or coordinating care for the patient. Onfu-ua-mbcj time was at least 25 minutes. Abel Pablo MD Referring Provider: ABEL PABLO [[id number]] Allergies As of Date: 05/21/2018 Noted Allergy [...] QUADRIVALENT AGE 3 YRS PLUS + IM [66445MBZ] Order #: [id number] tamsulosin ER (FLOMAX) 0.4 mg capTake 1 capsule by mouth daily at bedtime.Disp: 30 capsuleRfl: 1 HGB A1C [ADTSQ9Z] Order #: [id number] FUTURE BASIC METABOLIC PNL [SQBMP] Order #: [id number] FUTURE LIPID PANEL BASIC [SQLIPB] Order #: [id number] FUTURE HYDROcodone-acetaminophen (NORCO) 5-325 mg per tabletTake [...] TABLET Take 0.5 tablets by mouth calvin* HDMMISLXGRB-XRKMKDCXW-CGW C-M* Take 1 capsule by mouth three* [...] TOXICOLOGY SCREEN,UR Collected: 03/16/2018 Status: F Source: [place] 8:41 AM [facility] REPOSITORY TYPE CODE TESTS RESULT [...] on the same specimen through Client Services ([phone]) if contacted within 48 hours of initial testing. [1]Substance Abuse and Mental Health Services Administration (2012). Clinical Drug Testing in Primary Care Technical Assistance Publication Series 32. Department of Health and Human Services, [place], p.10. These tests were developed and their performance characteristics determined by [facility]'s [facility] [place] ( [facility]). They have not been cleared or a pproved by the FDA. [facility] is regulated under CLIA as qualified to perform high complexity testing. These tests are used for clinical purposes. They should not be regarded as investigational or for research. Performed By: #### UTOX2, UQNTPP #### [facility] [address] [place] [address] QUANT PAIN PANEL, Collected: 03/16/2018 Status: F Source: [facility] 8:41 AM [facility] REPOSITORY TYPE CODE TESTS RESULT OUT OF REFERENCE UNITS RANGE LAB UQCANN <16 ng/mL <16 Cannabinoid, Urine Result Comment: Tetrahydrocannabinol carboxylic acid (THCA) is a metabolite of gshij-3-qucmijbmywczctrrwwki which is the main active component of [...] Urine 7.8 LAB UQSPGR 1.002-1.030 Specific 1.011 Ulysses,Ur LAB UQOXID <200 mg/L Oxidants, <38 Urine LAB SVNI01 <51 mg/L <50 NITRITES,URINE LAB SVCH01 <50 mg/L <10 CHROMATE,URINE LAB SVSQ01 Specimen QUALITY,URINE quality results within acceptable limits. LAB UQNOTE Note This test is for Medical use only. Result Comment: This test was developed and its performance characteristics determined by [facility]'s [facility] [place] ([facility]). It has not been cleared or approved by the FDA. -[facility] is regulated under CLIA as qualified to perform high-complexity testing. This test is used for clinical purposes. It should not be regarded as investigational or for research. Performed By: #### UTOX2, UQNTPP #### [facility] [address], [place] [address] CBC Collected: 03/16/2018 Status: F Source: [place] 8:29 AM [facility] REPOSITORY TYPE CODE TESTS RESULT [...] By: #### CBC, CMP, LIPB, HBA1C #### [facility] [address], [place] [address] COMP METABOLIC PANEL Collected: 03/16/2018 Status: F Source: [place] 8:29 AM [facility] REPOSITORY TYPE CODE TESTS RESULT OUT OF REFERENCE UNITS RANGE LAB TP 6.3-8.0 g/dL Protein, Total 6.9 LAB ALB 3.9-4.9 g/dL Albumin 3.9 LAB CA 8.5-10.2 mg/dL Calcium, Total 9.3 LAB TBIL 0.2-1.3 mg/dL Bilirubin, Total 0.4 LAB ALKP 36-108 U/L Alkaline Phosphatase 100 LAB AST 14-40 U/L AST 21 LAB GLU 74-99 mg/dL Glucose High 115 Result Comment: The [place] Diabetes Association (ADA) provides guidance for cutoff [...] Standards of Medical Care in Diabetes 2016, [place] Diabetes Association. Diabetes Care. 2016.39(Suppl 1). LAB [...] By: #### CBC, CMP, LIPB, HBA1C #### [facility] [address] [place], [place] [address] LIPID PANEL, BASIC Collected: 03/16/2018 Status: F Source: [place] 8:29 AM [facility] REPOSITORY TYPE CODE TESTS RESULT [...] Desk Reference: National Heart, Lung, and Blood [place]. National Institutes of Health. 2001: NIH Publication No. 01-3305. 2. An International Atherosclerosis Society position paper: global recommendations for the management of dyslipidemia: executive summary, Atherosclerosis. 2014: 232(2):410-413. Performed By: #### CBC, CMP, LIPB, HBA1C #### [facility] [employer] [address] [place], [place] [address] HEMOGLOBIN A1C Collected: 03/16/2018 Status: F Source: [place] 8:29 AM [facility] REPOSITORY TYPE CODE TESTS RESULT OUT OF REFERENCE UNITS RANGE LAB HGBA1C 4.3-5.6 % High Hemoglobin A1c 5.7 LAB HBA0 mg/dL Est. Average Glucose 117 Result Comment: eAG: (Estimated average glucose) is a calculated value from HgbA1c and is sales promotion representative of the average blood glucose level in the last 2-3 month period. Performed By: #### CBC, CMP, LIPB, HBA1C #### [facility] [employer] [address] [place], [place] [address] PROGRESS Observed: 02/19/2018 Status: COMPLETED Source: [place] 8:06 AM [facility] REPOSITORY HNO ID: [id number] Author: Abel Pablo Service: (none) Author Type: [...] for Zostavax administration 05/20/2015 done at [facility] - Raynaud's syndrome - Sciatica - Tobacco abuse - Urinary calculus, unspecified Renal stones--calcium oxalate Current Outpatient Prescriptions: HYDROcodone-acetaminophen (NORCO) 5-325 mg per tablet Take 2 tablets by mouth twice daily as needed for Pain for up to 30 days.Earliest Fill Date: 02/04/18 sildenafil, antihypertensive, (REVATIO) 20 mg tablet Take 2 tablets by mouth once daily as needed. Rlapomdbrkn-Lccuncysq-Rph C-Mn (GLUCOSAMINE CHONDROITIN MAXSTR) 500-400 mg cap [...] Lymph 1.00 - 4.00 k/uL 1.70 1.94 Pratt% % 7.9 8.5 Abs Pratt 0.00 - 0.86 k/uL 0.41 0.59 Eosin% [...] counseling and/or coordinating care for the patient. Fbse-wb-hjfb time was at least 25 minutes. Abel Pablo MD CNOV Observed: 02/19/2018 Status: COMPLETED Source: [place] 8:00 AM [facility] REPOSITORY Office Visit (INTMWS) MOSHE ZIMMERMAN ([id number]) 1955 M Date Time Provider Department 02/19/18 [...] for Zostavax administration 05/20/2015 done at [facility] - Raynaud's syndrome - Sciatica - Tobacco abuse - Urinary calculus, unspecified Renal stones--calcium oxalate Current Outpatient Prescriptions: HYDROcodone-acetaminophen (NORCO) 5-325 mg per tablet Take 2 tablets by mouth twice daily as needed for Pain for up to 30 days.Earliest Fill Date: 02/04/18 sildenafil, antihypertensive, (REVATIO) 20 mg tablet Take 2 tablets by mouth once daily as needed. Zujmjiatzqx-Ifnsxhgqi-Qru C-Mn (GLUCOSAMINE CHONDROITIN MAXSTR) 500-400 mg cap [...] Lymph 1.00 - 4.00 k/uL 1.70 1.94 Pratt% % 7.9 8.5 Abs Pratt 0.00 - 0.86 k/uL 0.41 0.59 Eosin% [...] counseling and/or coordinating care for the patient. Ktzm-kv-xbir time was at least 25 minutes. Abel Pablo MD Referring Provider: ABEL PABLO [[id number]] Allergies As of Date: 02/19/2018 Noted Allergy [...] Z68.31] Order(s):COMP METABOLIC PANEL [SQCMP] Order #: [id number] FUTURE CBC [SQCBC] Order #: [id number] FUTURE HGB A1C [JAWPL6A] Order #: [id number] FUTURE TOX SCREEN ROUT UR [SQUTOX2] Order #: [id number] PAIN PANEL, UR QUANT [SQUQNTPP] Order #: [id number] HYDROcodone-acetaminophen (NORCO) 5-325 mg per tabletTake 2 [...] 0 LIPID PANEL BASIC [SQLIPB] Order #: [id number] FUTURE Prescriptions as of 02/19/2018 Sig: HYDROCODONE 5 MG-ACETAMINOPHE* Take 2 tablets by mouth twice* HYDROCODONE 5 MG-ACETAMINOPHE* Take 2 tablets by mouth twice* HYDROCODONE 5 MG-ACETAMINOPHE* Take 2 tablets by mouth twice* SILDENAFIL (ANTIHYPERTENSIVE)* Take 2 tablets by mouth once * JZKQEAIBXXL-IIPIWSNXA-RTB C-M* Take 1 capsule by mouth three* [...] 03/08/18 PROGRESS Observed: 12/04/2017 Status: COMPLETED Source: [place] 8:59 AM [facility] REPOSITORY HNO ID: [id number] Author: Abel Pablo Service: (none) Author Type: [...] for Zostavax administration 05/20/2015 done at [facility] - Raynaud's syndrome - Sciatica - Tobacco [...] Take 1 tablet by mouth once daily. Qoyddyakecv-Eoqdipyjb-Kgz C-Mn (GLUCOSAMINE CHONDROITIN MAXSTR) 500-400 mg cap [...] counseling and/or coordinating care for the patient. Ttcr-yr-rrvm time was at least 25 minutes. Abel Pablo MD CNOV Observed: 12/04/2017 Status: COMPLETED Source: [place] 8:20 AM [facility] REPOSITORY Office Visit (INTMWS) ELSIEMOSHE GAMINO ([id number]) 1955 M Date Time Provider Department 12/04/17 [...] for Zostavax administration 05/20/2015 done at [facility] - Raynaud's syndrome - Sciatica - Tobacco [...] Take 1 tablet by mouth once daily. Beqsdnilgbw-Qfysaqedr-Wna C-Mn (GLUCOSAMINE CHONDROITIN MAXSTR) 500-400 mg cap [...] counseling and/or coordinating care for the patient. Odxc-gv-piea time was at least 25 minutes. MD Abel Young MD 12/04/2017 9:16 AM Signed Labs ordered for next appointment. Referring Provider: SELF [[id number]] Allergies As of Date: 12/04/2017 Noted Allergy Reaction LIPITOR (ATORVASTATIN CALCIUM) 06/07/2005 Comments: muscle cramps LODINE (ETODOLAC) 02/18/2008 Comments: depression WELLBUTRIN (BUPROPION HCL) 06/07/2005 Date Reviewed: 12/04/2017 Reviewed by: April Lake Supervisory Aide - Fully Assessed Reason for Visit: Recheck [...] MG-ACETAMINOPHE* Take 2 tablets by mouth twice* GYZQUFFZSJN-OGJCIOPRY-AHX C-M* Take 1 capsule by mouth three* [...] Status:Closed by ABEL PABLO MD on 12/09/17 JUANIS Observed: 11/20/2017 Status: COMPLETED Source: [place] 12:00 AM [facility] REPOSITORY [facility] MOSHE ZIMMERMAN ([id number]) 1955 M Date Time Provider Department 11/20/17 [...] Take 1 tablet by mouth once d* XSERHMAAQXB-EOLMTOOHU-KNI C-M* Take 1 capsule by mouth three* [...] [M79.641, M79.642] INVALID FOR* Encounter Status:Closed by BECKY RUBY on 05/31/18 ALLERGIES ALLERGIES DATE TYPE / CODE NAME / CODE REACTION SEVERITY SOURCE Drug etodolac/[id number] Hives [place] 8 Allergy/170576897( 87(RXNORM) Community SNOM[facility]) Hospital Repository Miscellaneous LODINE Hives Unknown [place] 8 Allergy/201973936( Community SNOMED CT) Hospital Repository DRUG ETODOLAC [place] 8 INGREDI/933719942( Clinic Main SNOMED [facility]) [place] Repository DRUG ATORVASTATIN [place] 5 INGREDI/156896945( CALCIUM [facility] SN[facility]) [place] Rep[place] DRUG BUPROPION HCL [place] 5 INGREDI/876352332( [facility] [place] Repository ENCOUNTERS ENCOUNTERS ADMIT/DISCHARGE ACCOUNT ADMITTING ENCOUNTER LOCATION SOURCE NUMBER CLASS 09/13/2018 [id number] [facility] ing:CR Repository 09/10/2018/09/10/19 [id number] Ambulatory [address] Repository 09/10/2018/09/11/19 [id number] Ambulatory [address] Repository 09/05/2018 [id number] [facility] ing:PSN Repository 09/05/2018 [id number] Ambulatory BMSBuilding:[facility] Repository 09/03/2018/09/04/19 [id number] Ambulatory [address] Repository 08/30/2018/08/30/19 [id number] Ambulatory [address] Repository 08/27/2018 [id number] Ambulatory [facility] ing:CVS Repository 08/27/2018 [id number] Ambulatory BMSBuilding:[facility] Repository 08/19/2018/08/19/[id number] ing:CR Repository 08/11/2018/08/12/20 [id number] Ambulatory [address] Repository 08/08/2018/08/08/20 [id number] Ambulatory BMSBuilding:Kenyatta Otto 18 MS.[facility] Repository 08/06/2018 [id number] Ambulatory [facility] Hospital ing:CR Repository 08/06/2018/08/06/20 [id number] Ambulatory [address] Repository 07/25/2018 [id number] Ambulatory BMSBuilding:Kenyatta Otto MS.CF.[facility] Repository 07/24/2018/07/25/20 [id number] Ambulatory BMSBuilding:[place] Repository 07/24/2018/07/25/20 [id number] Ambulatory [address] Hospital ing:CLSPRoom: Repository [id number] 07/16/2018/07/16/20 [id number] Ambulatory BMSBuilding:Kenyatta Ramon MS.[facility] Repository 07/08/2018/07/10/20 [id number] Ambulatory [address] Repository 07/04/2018 [id number] Ambulatory BMSBuilding:Kenyatta Otot MS.[facility] Repository 07/04/2018/07/06/20 [id number] [place], Inpatient [place] [facility] ing:PCURoom: Repository [id number]: 1 07/04/2018 [id number] [place], Ambulatory BMSBuilding:Kenytata Giron MS.[facility] Repository 07/04/2018 [id number] [place], Ambulatory BMSBuilding:Kenyatta Giron MS.CF.[facility] Repository 07/04/2018 [id number] [place], Ambulatory BMSBuilding:Kenyatta Giron MS.CF.[facility] Repository 07/04/2018 [id number] [place], Ambulatory BMSBuilding:Kenyatta Giron MS.[facility] Repository 07/04/2018 [id number] Agyepong, Ambulatory BMSBuilding:Kenyatta Giron MS.[facility] Repository 07/04/2018 [id number] Agyep[place], Ambulatory BMSBuilding:Kenyatta Giron MS.CF.[facility] Repository 07/02/2018/07/02/20 [id number] Ambulatory [address] Repository 07/02/2018/07/03/20 [id number] Ambulatory [address] Repository 05/21/2018/06/05/20 [id number] Ambulatory [address] Repository 03/16/2018/03/16/20 [id number] Ambulatory [address] Repository 02/19/2018/03/11/20 [id number] Ambulatory [address] Repository 12/04/2017/12/12/19 [id number] Ambulatory [address] Repository PAYERS PAYERS ENCOUNTER GUARANTOR PAYER SUBSCRIBER SOURCE 09/13/2018 MOSHE E Primary MOSHE E [place] [id number] Insurance:ANTHEMPolic RUNYONDOB: [facility] y Number: [id number] [id number] Repository [address]Tsh: (330) Date:4802-35-27CN [phone] () [address] [place] [address]34[address]DB: 09/13/2018 Secondary NOT GIVENUNK [place] Insurance:SELF PAY [facility] Number: Effective Repository Date:2018-08-20 09/05/2018 MOSHE E Primary MOSHE E [place] [id number] Insurance:ANTHEMPolic RUNYONDOB: [facility] y Number: [id number], [place] [id number] Repository [address]Pbl: (330) Date:9209-94-73HN [phone] () [address] [place] [address] 17164XA: 09/05/2018 Secondary NOT GIVENUNK [place] Insurance:SELF PAY [facility] Number: Effective Repository Date:2018-08-29 09/05/2018 MOSHE E Primary MOSHE E [place] [id number] Insurance:ANTHEMPolic RUNYONDOB: [facility] y Number: [id number], [place] [id number] Repository [address]Oue: (330) Date:8106-77-44BP [phone] () 275665BKSYVVSAMANDA LANDRY [address]HA: 09/05/2018 Secondary NOT GIVENUNK [place] Insurance:SELF PAY [facility] Number: Effective Repository Date:2018-09-05 08/27/2018 MOSHE E Primary MOSHE E [place] [id number] Insurance:ANTHEMPolic RUNYONDOB: [employer] y Number: [id number], [place] [id number] Repository [address]Vnp: (330) Date:8659-10-83SE [phone] () 302950HPERTDRAMANDA LANDRY [address]SL: 08/27/2018 Secondary NOT GIVENUNK [place] Insurance:SELF PAY [facility] Number: Effective Repository Date:2018-08-08 08/27/2018 MOSHE E Primary MOSHE E [place] [id number] Insurance:ANTHEMPolic RUNYONDOB: [employer] y Number: [id number], [place] [id number] Repository [address]Tzi: (330) Date:3345-71-82XX [phone] () 473354UREQTAVAMANDA LANDRY 652[address]ZU: 08/27/2018 Secondary NOT GIVENUNK [place] Insurance:SELF PAY [facility] Number: Effective Repository Date:2018-08-27 08/19/2018 MOSHE E Primary MOSHE E [place] [id number] Insurance:ANTHEMPolic RUNYONDOB: [employer] y Number: [id number], [place] [id number] Repository 118[address]Jov: (330) Date:3922-13-65GI [phone] () [id number] LANDRY [address]DU: 08/19/2018 Secondary NOT GIVENUNK [place] Insurance:SELF PAY [facility] Number: Effective Repository Date:2018-08-06 08/08/2018 MOSHE E Primary MOSHE E [place] [id number] Insurance:ANTHEMPolic RUNYONDOB: [employer] y Number: [id number], [place] [id number] Repository [address]Ppi: (330) Date:7679-79-85AO [phone] () 245063QRLLOOW, [place] [address]AQ: 08/08/2018 Secondary NOT GIVENUNK [place] Insurance:SELF PAY [facility] Number: Effective Repository Date:2018-08-08 08/06/2018 MOSHE E Primary MOSHE E [place] [id number] Insurance:ANTHEMPolic RUNYONDOB: [employer] y Number: [id number], [place] [id number] Repository [address]Ptj: (330) Date:8539-64-48TL [phone] () 304071HIJSFKC, [place] [address]GC: 08/06/2018 Secondary NOT GIVENUNK [place] Insurance:SELF PAY [facility] Number: Effective Repository Date:2018-07-29 07/25/2018 MOSHE E Primary MOSHE E [place] [id number] Insurance:ANTHEMPolic RUNYONDOB: [employer] y Number: [id number], [place] [id number] Repository [address]Kph: (330) Date:7490-15-07KL [phone] () 486891CSJHSSI, [place] [address]WT: 07/25/2018 Secondary NOT GIVENUNK [place] Insurance:SELF PAY [facility] Number: Effective Repository Date:2018-07-25 07/24/2018 MOSHE E Primary MOSHE E [place] [id number] Insurance:ANTHEMPolic RUNYONDOB: [employer] y Number: [id number], [place] [id number] Repository [address]Gnr: (330) Date:0322-84-92BK [phone] () 278012HNUIDSZ, [place] [address]QV: 07/24/2018 Secondary NOT GIVENUNK [place] Insurance:SELF PAY [facility] Number: Effective Repository Date:2018-07-24 07/24/2018 MOSHE E Primary MOSHE E [place] [id number] Insurance:ANTHEMPolic RUNYONDOB: [employer] y Number: [id number], [place] [id number] Repository [address]Rjg: (330) Date:9676-17-90QI [phone] () 640718GRJDXTN, [place] [address]TJ: 07/24/2018 Secondary NOT GIVENUNK [place] Insurance:SELF PAY [facility] Number: Effective Repository Date:2018-07-16 07/16/2018 MOSHE E Primary MOSHE E [place] [id number] Insurance:ANTHEMPolic RUNYONDOB: [employer] y Number: [id number], [place] [id number] Repository [address]Ejs: (330) Date:5603-34-52WT [phone] () 556761LNQCTRK, [place] [address]MJ: 07/16/2018 Secondary NOT GIVENUNK [place] Insurance:SELF PAY [facility] Number: Effective Repository Date:2018-07-16 07/04/2018 Moshe E Primary Moshe E [place] [id number] Insurance:ANTHEMPolic RunyonDOB: [employer] y Number: [id number], [place] [id number] Repository [address]Wbm: (330) Date:0635-36-31VE [phone] () 005663EXZHHLN, [place] [address]EM: 07/04/2018 Secondary NOT GIVENUNK [place] Insurance:SELF PAY [facility] Number: Effective Repository Date:2018-07-04 07/04/2018 MOSHE E Primary MOSHE E [place] [id number] Insurance:ANTHEMPolic RUNYONDOB: [employer] y Number: [id number], [place] [id number] Repository [address]Rqp: (330) Date:2704-85-67BD [phone] () 919779IZXOYGL, [place] [address]CQ: 07/04/2018 Secondary NOT GIVENUNK [place] Insurance:SELF PAY [facility] Number: Effective Repository Date:2018-07-04 07/04/2018 MOSHE E Primary MOSHE E [place] [id number] Insurance:ANTHEMPolic RUNYONDOB: [employer] y Number: [id number], [place] [id number] Repository [address]Ckv: 330) Date:8901-49-52WY [phone] () [address] [place] [address]YJ: 07/04/2018 Secondary NOT GIVENUNK [place] Insurance:SELF PAY [facility] Number: Effective Repository Date:2018-07-04 07/04/2018 Moshe E Primary Moshe E [place] [id number] Insurance:ANTHEMPolic RunyonDOB: [employer] y Number: [id number], [place] [id number] Repository [address]Uxd: 330) Date:0494-49-04DU [phone] () [id number] [place] [address]AA: 07/04/2018 Secondary NOT GIVENUNK [place] Insurance:SELF PAY [facility] Number: Effective Repository Date:2018-07-04 07/04/2018 Moshe E Primary Moshe E [place] [id number] Insurance:ANTHEMPolic RunyonDOB: [employer] y Number: [id number], [place] [id number] Repository [address]Muk: 330) Date:0389-42-48TP [phone] () [id number] [place] [address]OP: 07/04/2018 Secondary NOT GIVENUNK [place] Insurance:SELF PAY [facility] Number: Effective Repository Date:2018-07-04 07/04/2018 MOSHE E Primary MOSHE E [place] [id number] Insurance:ANTHEMPolic RUNYONDOB: [employer] y Number: [id number], [place] [id number] Repository [address]Rik: (330) Date:1184-72-37CD [phone] () 385252HKEQKYS, [place] [address]SE: 07/04/2018 Secondary NOT GIVENUNK [place] Insurance:SELF PAY [facility] Effective Repository Date:2018-07-04 07/04/2018 MOSHE E Primary MOSHE E [place] [id number] Insurance:ANTHEMPolic RUNYONDOB: [employer] y Number: [id number], [place] [id number] Repository [address]Ddh: (330) Date:8267-92-07ZP [phone] () 759144FTHHBDB, [place] [address]SW: 07/04/2018 Secondary NOT GIVENUNK [place] Insurance:SELF PAY [facility] Number: Effective Repository Date:2018-07-04 07/04/2018 MOSHE E Primary MOSHE E [place] [id number] Insurance:ANTHEMPolic RUNYONDOB: [employer] y Number: [id number], [place] [id number] Repository [address]Bdx: (330) Date:3759-58-25NJ [phone] () 988101XDVEPIO, [place] [address]VH: 07/04/2018 Secondary NOT GIVENUNK [place] Insurance:SELF PAY [facility] Number: Effective Repository Date:2018-07-04
== END ==
PROVIDERS: Family Provider Internal Medicine; PCP Internal Medicine; Referring Provider Internal Medicine Cardiovascular Disease; Visit Provider Internal Medicine Cardiovascular Disease
DX: R06.09 Other forms of dyspnea (principal)
CPT/HCPCS: 94060; 94726; 94729

== ENCOUNTER 2018-09-13 08:00 | Outpatient (RCR) | payer BC, SELFPAY ==
[2018-07-04 10:10] VITALS: BMI 31.4
[2018-08-08 11:38] VITALS: BMI 32.2
--- NOTE | 2018-09-06 13:27 | PCM.CR.ITP ---
General Information - General Information Admitting Diagnosis: PCI with stenting - Education/Goals Cardiac Rehabilitation Goals: 1. Maintain the individual as the primary focus of care. 2. To improve the patient's quality of life. 3. Identification of cardiac risk factors and provide cardiac risk factor management. 4. Enhance the psychosocial status of the patient. 5. Reconditioning enough to allow the patient to resume customary activities. 6. Control symptoms of cardiac disease Scale for measuring improvement of personal goals: Enter appropriate number in Comments. 2 = Unchanged. 3 = Slightly Better. 4 = Moderate Improvement. 5 = Met my Goal Exercise - 30-day Assessment - Visit Date of Eval: 09/06/18 Session #:: 11 - Stages of Change Stages of Change:: Action - Exercise Prescription Mode:: Treadmill, Airdyne, NuStep Frequency (x/week): 3 Duration:: 30-45 METs - Progression: 0.5-1 MET as tolerated: 5.5 Target Heart Rate:: 112-120 Max HR 91 - Hypertension Resting Blood Pressure:: 124/60 Peak Exercise Blood Pressure:: 172/82 Medication Changes:: No - Intervention Home Exercise/Activity Goal:: Sitting Time <3 hrs/day - Education Goals:: Warm-up, RPE ANNA Scale, S/S, Safe Exercise, Self-Monitoring - Exercise Program Goals Exercise Program Goals: Aerobic Activity >30 min, B/P <130/80 Nutrition - 30-Day Assessment - Program Goals Nutrition Program Goals: LDL <70. Total Cholesterol <200. HDL >45. Triglycerides <150. HgbA1C <7%. BMI <25 - Visit Date of Eval: 09/06/18 - Stages of Change Stages of Change:: Action - Diabetes Diabetes:: No - Weight Management Weight:: 105.233 kg - Intervention Referral to dietitian:: Yes Referral to Diabetic Clinic:: No Will attend diet classes:: Yes - Education Attended class for:: Signs & symptoms of hypoglycemia, Signs & symptoms of hyperglycemia, Relate diabetes to coronary artery disease, Healthy eating Tobacco - Initial Assessment - Program Goals Tobacco Program Goals: Complete smoking cessation. Attend education classes. Improve Knowledge Test score - Learning Barriers Learning Barriers: Ready to Learn Tobacco - 30-Day Assessment - Program Goals Tobacco Program Goals: Complete smoking cessation. Attend education classes. Improve Knowledge Test score - Stage of Change Stages of Change:: Action - Learning Barriers Learning Barriers: Participates in education - Family Support Do you have family support?: Yes - Tobacco Use Tobacco Use: Cigarettes Do you use smokeless tobacco?: Yes - stopped smoking less than 6 months ago - Intervention Smoking Cessation Referral:: Yes Education Schedule Given:: Yes - Education Attended class for:: Tobacco triggers, Coronary artery disease, Risk factors, Sexuality, Medical compliance, Cardiac A&P, Angina signs & symptoms Psychosocial - Initial Assess - Target Goals Target Goals: Assess presence or absence of depression. Using a valid screening tool, maximizes coping skills. Positive support system - Psychosocial Test Tool Used:: HANDS Depression Questionnaire - Assistive Devices Fall Risk Assessed:: No Psychosocial - 30-Day Assess - Target Goals Target Goals: Assess presence or absence of depression. Using a valid screening tool, maximizes coping skills. Positive support system - Stages of Change Stages of Change:: Action - Psychosocial Test Tool Used:: HANDS Depression Questionnaire - Intervention PS - Interventions: Yes Attend Stress Management Classes, Yes Uses Stress Management Skills, No Referral to Mental Health, No Referral to [facility] Case Management, No Referral to Physician - Education Attended classes for:: Coping techniques, Signs & symptoms of depression, Stress management, Relaxation techniques - Assistive Devices Assistive Devices:: None Fall Risk Assessed:: Yes Patient Health Questionnaire 30-Day Re-eval Assessment 1. Little interest or pleasure in doing things: More than half the days 2. Feeling down, depressed, or hopeless: More than half the days 3. Trouble falling or staying asleep, or sleeping too much: More than half the days 4. Feeling tired or having little energy: Several days 5. Poor appetite or overeating: Not at all 6. Feeling bad about yourself -- or that you are a failure or have let yourself or your family down: Several days 7. Trouble concentrating on things, such as reading the newspaper or watching television: Several days 8. Moving or speaking so slowly that other people could have noticed. Or the opposite - being so fidgety or restless that you have been moving around a lot more than usual: Not at all 9. Thoughts that you would be better off , or of hurting yourself in some way: Not at all How difficult have these problems made it for you to do your work, take care of things at home, or get along with other people?: Not difficult at all Total Score: 9 Self-Efficacy 30-Day Re-eval Assessment We would like to know how confident you are in doing certain activities. Please select your confidence level for:: Select your confidence level for the following using the scale 1-10 where 1 is not at all confident and 10 is totally confident. Your score is the average of all 6 responses. Fatigue: How confident are you that you can keep the fatigue caused by your disease from interfering with the things you want to do? Select Number: 5 Physical Discomfort or Pain: How confident are you that you can keep the physical discomfort or pain of your disease from interfering with the things you want to do? Select Number: 8 Emotional Distress: How confident are you that you can keep the emotional distress caused by your disease from interfering with the things you want to do? Select Number: 6 Other Symptoms or Health Problems: How confident are you that you can keep other symptoms or health problems from interfering with the things you want to do? Select Number: 8 Different Tasks and Activities: How confident are you that you can do the different tasks and activities needed to manage your health condition so as to reduce your need to see a doctor? Select Number: 7 Medication: How confident are you that you can do things other than just taking medication to reduce how much your illness affects your everyday life? Select Number: 7 Total Score:: 6
[2018-09-06 13:34] VITALS: BP 124/60; BP 172/82
== END 2018-09-19 23:59 ==
LOC: CR 08:00
PROVIDERS: Family Provider Internal Medicine; PCP Internal Medicine; Referring Provider Internal Medicine Cardiovascular Disease; Visit Provider Internal Medicine Cardiovascular Disease
DX: I21.19 ST elevation (STEMI) myocardial infarction involving other coronary artery of inferior wall (principal); I21.3 ST elevation (STEMI) myocardial infarction of unspecified site; Z95.5 Presence of coronary angioplasty implant and graft
CPT/HCPCS: 93798

== ENCOUNTER 2018-09-20 07:05 | Outpatient (RCR) | payer BC, SELFPAY ==
[2018-07-04 10:10] VITALS: BMI 31.4
[2018-09-20 01:34] VITALS: BP 124/60; BP 172/82; BMI 32.2
== END 2018-10-04 08:00 | disposition home or self-care (01) ==
LOC: CR 07:05
PROVIDERS: Family Provider Internal Medicine; PCP Internal Medicine; Referring Provider Internal Medicine Cardiovascular Disease; Visit Provider Internal Medicine Cardiovascular Disease
DX: I21.19 ST elevation (STEMI) myocardial infarction involving other coronary artery of inferior wall (principal); I21.3 ST elevation (STEMI) myocardial infarction of unspecified site; Z95.5 Presence of coronary angioplasty implant and graft
CPT/HCPCS: 93798

== ENCOUNTER → 2019-02-28 06:09 | Outpatient (CLI) | payer BC, SELFPAY ==
[2018-07-04 10:10] VITALS: BMI 31.4
[2019-02-27 11:20] VITALS: BMI 31.9
[2019-02-28 07:06] LABS: Hemoglobin 14.2 g/dl (13.0-16.5); Mean Corp Hgb Conc 33.8 g/gl (32-36); Mean Corpuscular Hgb 30.3 pg (27.0-32.0); Mean Corpuscular Volume 89.6 fL (80-94); Mean Platelet Vol. 9.6 fl (6.2-12.0); Platelet Count 282 K/mm3 (150-450); RBC Distribution Width CV 13.4 % (11.6-14.6); RBC Distribution Width SD 43.6 fl (35.1-43.9); Red Blood Count 4.69 M/mm3 (4.6-6.2); White Blood Count 4.7 K/mm3 (4.4-11.0)
[2019-02-28 07:13] LABS: Prothrombin Time (Protime)PT. 13.2 SECONDS (11.7-14.9)
[2019-02-28 07:14] LABS: Partial Thromboplast Time 27.7 Seconds (24.1-36.2)
[2019-02-28 07:15] LABS: Scan Indicated on CBC? Y/N NO
[2019-02-28 07:45] LABS: AST(SGOT) 19 U/L (15-37); Alanine Aminotransfer ALT/SGPT 22 U/L (16-61); Albumin, Serum 3.6 g/dL (3.2-5.0); Alkaline Phosphatase 120 U/L (45-117); Anion Gap 7 (5-15); BUN 18 mg/dL (7-18); BUN/Creat Ratio 20.4 RATIO (10-20); Bilirubin, Direct 0.12 mg/dL (0.00-0.30); Calcium,Total 8.9 mg/dL (8.5-10.1); Chloride 108 mmol/L (98-107); Cholesterol 173 mg/dL (200); Creatinine, Serum 0.88 mg/dL (0.70-1.30); EST Glomerular Filtration Rate 93 mL/min (>60); Est Glom Filt Rate - Afr Amer 112 mL/min (>60); Globulin 3.5 g/dL (2.2-4.2); Glucose 110 mg/dL (74-106); High Density Lipoprotein 48 mg/dL; Protein, Total 7.1 g/dL (6.4-8.2); Sodium Level 142 mmol/L (136-145); Triglycerides 66 mg/dL; Very Low Density Lipoprotein 13 mg/dL (5-40)
== END ==
PROVIDERS: Family Provider Internal Medicine; PCP Internal Medicine; Visit Provider Internal Medicine Cardiovascular Disease
DX: E78.5 Hyperlipidemia, unspecified (principal); I25.10 Atherosclerotic heart disease of native coronary artery without angina pectoris; R06.09 Other forms of dyspnea; R06.02 Shortness of breath; I25.2 Old myocardial infarction; Z95.5 Presence of coronary angioplasty implant and graft
CPT/HCPCS: 36415; 80048; 80061; 80076; 85027; 85610; 85730

== ENCOUNTER 2019-03-12 07:33 | Day surgery (SDC) | payer BC, SELFPAY ==
[2018-07-04 10:10] VITALS: BMI 31.4
[2019-02-27 11:20] VITALS: BMI 31.9
--- NOTE | 2019-02-27 12:03 | RAD_ITS ---
STUDY: X-RAY CHEST REASON FOR EXAM: Male, 64 years old. Shortness of breath TECHNIQUE: PA and lateral views of the chest COMPARISON: X-Ray Chest July 04, 2018 FINDINGS: The lungs are clear. There are no pleural effusions. There is no pneumothorax. The heart is normal in size. The visualized osseous structures are within normal limits. RAD/Chest PA and Lateral IMPRESSION: No acute thoracic pathology. Electronically Signed: Shady Oliver, at 20:56 EDT Tel , Service support ,
[2019-03-12] VITALS (20 sets, daily range): BP systolic 98–173; BP diastolic 38–89; PULSE 48–78; RESP 10–20; TEMP 36.7; O2SAT 96–100; BMI 31.1; BMI 32.2
--- NOTE | 2019-03-12 10:20 | CL.I_ITS ---
Patient Name: ODALIS COTA Study Date: 03/12/2019 Performing: Sacha Coles MD Ht: 70.87 inches 180 cm : 1955 Wt: 222.67 lbs 101 kg Age: 64 Gender: male BSA: 2.2 PROCEDURE(S) PERFORMED TP95-CTW/LHC/COR/LV HO46-DRL, CORONARY OR GRAFT, INITIAL VESSEL [id number] W OR WO PTCA, SINGLE CORONARY ARTERY CLINICAL PROFILE AND CO-MORBIDITIES Indications: New Onset Angina <= 2 months, Stable Known CAD Heart Failure: NYHA Class: 1, Newly Diagnosed: No, Heart Failure Type: Systolic Stress/Imaging Date: 08/28/2018 Angina Classification Anginal Classification w/in 2 Weeks: CCS II CAD Presentations: Unstable angina. Other: Dyspnea on exertion Comorbidities/Risk Factors: Hypertension Dyslipidemia Prior PCI Chronic Lung Disease CONCLUSIONS Segmented LV systolic dysfunction- Mild Single vessel CAD of the LAD Non obstructive coronary arteries Widely patent RCA, LCX and LAD stents Successful PTCA/DENNIS proximal LAD after FFR of 0.85, utilizing a 2.5 x 20 Promus Synergy, post dilated with a 3.0 x 8 NC and a 3.25 x 8 NC balloon proximally, 75%-->0%, no dissection. Pt had similar ang inal symptoms with stent deployment. FFR of 0.85 felt to be significant given pt's anginal symptoms, exertional CP on stress testing and widely patent remaining stents. RECOMMENDATIONS Referred for immediate PCI Staged for FFR Highly recommend quitting all tobacco products Follow up with primary flake drier Risk factor modification ASA Indefinitley Plavix for at least 12 months Routine post interventional care Refer for Outpatient Cardiac Rehab Manual sheath removal per protocol Follow up with Dr. Coles Manual sheath removal. DESCRIPTION OF PROCEDURE The patient arrived to the procedure lab. The risks and benefits of the procedure as well as a full d escription of our services here and lack of surgical backup were fully explained to the patient and/o r their significant other prior to the catheterization. The Timeout was completed, verifying the santiago ect patient and procedure. The patient's procedural site was prepped and draped in the usual fashion. Local anesthetic was given subcutaneously to right groin region with Lidocaine 2%. Using a modified Seldinger technique, arterial access was obtained via the right femoral artery, a 4Fr sheath was inse rted. Venous access was obtained via the right femoral vein, a 7Fr sheath was inserted. A 7Fr thermal dilution catheter was inserted and right heart pressures were recorded, it was then advanced to PA p osition for cardiac outputs. Thermal dilution cardiac outputs were then recorded. O2 saturations were then obtained. Simultaneous pressures were then recorded. The Thermal dilution catheter was then removed. Left Ventriculography was performed in ORTIZ projection using a 4 Fr. Pigtail cathete r. LV to AO pullback pressures were then recorded. Left Coronary Artery selective angiography was per formed in multiple views using a 4 Fr. JL5 catheter. Right Coronary Artery selective angiography was then performed in multiple views using a 4 Fr. 3DRC catheter Arterial sheath was exchanged for a 6 Fr Sheath. ebu 3.5 Guide catheter was inserted and engaged into the LCA. The FFR/iFR wire was inserted. Adenosine was then given per protocol. Pressures and FFR /iFR were then recorded. FFR Ratio Baseline: .95 FFR Ratio post Adenosine: .85 The FFR/iFR wire was l eft in place as guide wire. Angiogram performed pre stent deployment. synergy 2.5 x 20 Drug Eluting s tent was advanced across the lesion in the LAD, proximal. Angiogram performed post stent deployment. Balloon catheter was inserted post stent. Angiogram performed post balloon dilatation. Adenosine was then given per protocol. FFR Ratio Baseline: .94 FFR Ratio post Adenosine: .85 The FFR/iFR wire was l eft in place as guide wire. nc emerge 3.25 x 8 Balloon catheter was inserted post stent. Angiogram pe rformed post balloon dilatation. Contrast was injected through the sheath and the Right Iliac and Fem oral artery were assessed for possible closure device. The arterial sheath was pulled and manual compression applied until hemostasis is achieved.. The venous sheath was then pulled and manua l compression applied until hemostasis achieved CORONARY ANGIOGRAPHY DOMINANCE: Right Dominant LEFT HEART ASSESSMENT Left Ventricular Ejection Fraction: by LV Gram 55 % Depressed Left Ventricular systolic function LVEDP: 14 mmHg Normal Left Ventricular End Diastolic Pressure Inferior Basal Hypokinesis - Mild RIGHT HEART ASSESSMENT Thermal CO: 5.92 Thermal CI: 2.69 Steven CO: 5.22 Steven CI: 2.37 PW: 16/12 10 PA: 26/8 16 RV: 27/0 7 RA: 8/4 4 PVR: 81 SVR: 1230 LEFT MAIN: Angiographically normal LEFT ANTERIOR DESCENDING ARTERY: PROX LAD: 75 % Stenosis MID LAD: Previously placed stent is patent CIRCUMFLEX ARTERY: MID CIRC: Previously placed stent is patent RIGHT CORONARY ARTERY: PROX RCA: Previously placed stent is patent MID RCA: Mild luminal irregularities less than 30% DISTAL RCA: Previously placed stent is patent INTERVENTION INFORMATION LESION SITE: LAD (Proximal) Lesion Complexity: High/C, lesion at bifurcation: No, thrombus present: No, lesion length: 20 mm, cul prit lesion: Yes Pre Stenosis: 75 % Pre intervention RANDY flow: 3 PROCEDURE: FFR, Drug Eluting Stent with pre and post dilatation Post Stenosis: 0 % Post intervention RANDY flow: 3 Lesion Devices: Qustodian 6 Fr EBU3.5 100cm Guide Catheter [place] Sci Synergy MR DENNIS 2.50x20 [place] Sci NC EMERGE MR 3.00x08 BALLOON [place] Sci NC EMERGE MR 3.25x08 BALLOON COMPLICATIONS No Complications PROCEDURE MEDICATIONS Fentanyl 25 mcg IV Fentanyl 25 mcg IV Adenosine drip for FFR 14.3 ml IV 03/12/2019 09:46:40 Adenosine drip for FFR 14.3 ml IV @ 03/12/2019 09:46:40 Heparin 6000 unit(s) IV 03/12/2019 09:34:55 Nitro 200 mcg IC 03/12/2019 09:39:29 Nitro 200 mcg IC 03/12/2019 09:39:29 IV Bolus: .9 NaCl 500 ml total 03/12/2019 10:10:42 SUMMARY OF HEMODYNAMIC DATA Time AIR REST ECG 07:52:30 RA 8/ (4) SV 09:11:45 RV 27/0, 7 09:12:14 PW 04/08 (10) PV 09:12:55 PA 26/8 (16) PA 09:13:07 LV 155/-8, 16 09:18:10 LV 154/-9, 15 09:18:16 LV 147/-10, 14 09:18:58 PW 02/07 (11) 09:18:58 LV 145/-11, 14 09:19:16 RV 32/0, 10 09:19:16 LV 144/-15, 17 09:19:23 RV 31/-1, 9 09:19:23 LV 157/-10, 12 09:20:33 LV 159/-7, 19 09:20:40 LVp 155/-9, 21 09:20:49 AOp 152/67 (96) 09:20:54 AO 132/70 (95) SA 09:23:04 Type SV CO (l/m) CI (l/m/ HR Time AIR REST Thermal 116.10 5.92 2.69 51 07:52:30 Steven 102.40 5.22 2.37 51 07:52:30 Label % O2 Pres/Loc Time AIR REST PA 67 PA 09:27:33 AO 96 PV 09:27:38 Signed By Sacha Coles MD On 03/17/2019 8:09:30 AM Sacha Coles MD
[2019-03-12 10:21] LABS: Blood Gas Specimen Type VEN; VBG BASE EXCESS 0 mmol/L (-1.0-3.5); VBG Bicarbonate 25 mmol/L (22-26); VBG Oxygen Content 26 mmol/L (23-33); VBG PO2 37 mmHg (25-40); VBG SO2 68 % (50-70); VBG pCO2 43.1 mmHg (41-51); VBG pH 7.37 (7.32-7.42)
[2019-03-12 10:21] LABS: Blood Gas Specimen Type VEN; VBG BASE EXCESS -1 mmol/L (-1.0-3.5); VBG Bicarbonate 25 mmol/L (22-26); VBG Oxygen Content 26 mmol/L (23-33); VBG PO2 35 mmHg (25-40); VBG SO2 65 % (50-70); VBG pCO2 43.3 mmHg (41-51); VBG pH 7.36 (7.32-7.42)
[2019-03-12 10:21] LABS: Base Excess -2 mmol/L (-2 to +2); Bicarbonate 23.7 mmol/L (22-26); Blood Gas Specimen Type ART; PO2 86 mmHG (75-100); SO2 96 % (95-99); Total Carbon Dioxide 25 mmol/L; pCO2 41.8 mmHg (35-45); pH 7.36 (7.35-7.45)
[2019-03-12 10:21] LABS: ACT Activated Clotting Time 175 sec (74-137)
--- NOTE | 2019-03-12 10:24 | EKG12_ITS ---
Test Reason : AM Blood Pressure : / mmHG Vent. Rate : 048 BPM Atrial Rate : 048 BPM P-R Int : 168 ms QRS Dur : 096 ms QT Int : 466 ms P-R-T Axes : 050 -07 005 degrees QTc Int : 416 ms Marked sinus bradycardia Inferior infarct (cited on or before 04-JUL-2018) Abnormal ECG When compared with ECG of 25-JUL-2018 05:18, No significant change was found Confirmed by REJI PERALTA, BRETT ([id number]), food expeditor KATHRIN BELL ([id number]) on 03/14/2019 9:54:35 AM Referred By: Sacha Coles Confirmed By:HELENA MENDOZA MD
--- NOTE | 2019-03-12 10:56 | EKG12_ITS ---
Test Reason : PCI Blood Pressure : / mmHG Vent. Rate : 048 BPM Atrial Rate : 048 BPM P-R Int : 168 ms QRS Dur : 096 ms QT Int : 472 ms P-R-T Axes : 054 -06 010 degrees QTc Int : 421 ms Marked sinus bradycardia Inferior infarct , age undetermined Abnormal ECG No previous ECGs available Confirmed by REJI PERALTA, BRETT ([id number]), senior technical editor ALFREDO FARMER ([id number]) on 03/14/2019 11:32:48 AM Referred By: Sacha Coles Confirmed By:HELENA MENDOZA MD
[2019-03-12] MEDS: 0.9% Normal Saline 1,000 ML 150 ML IV (11:00)
--- NOTE | 2019-03-12 11:10 | CRPHASE1_ITS ---
Patient Communication Former Patient:: Phase I, Phase II PHII Cardiac Rehab Discussed with Patient:: Yes Guide to Cardiac Rehab Given to Patient:: Yes Cardiac Rehab Facility Choice List Given to Patient:: Yes Choice Program [facility] PHII:: Communication Given to CR, Refer to [facility] Vocational Rehabilitation Teacher:: Sacha Coles Refer Phase II Cardiac Rehab:: Yes Sessions:: 36 sessions - 3 days/wk, 12 weeks Risk Factors/Lifestyle Family History: Family History (Last Reviewed 02/27/19 @ 11:21 by Gabi Moura) Father Heart disease Mother Cancer Cardiac Rehabilitation Info Cardiac Rehabilitation Program Information: Cardiac Rehabilitation is important for patients like you who are recovering from a heart problem. Cardiac rehabilitation programs are recognized as integral to the continued care of the patient with coronary heart disease. The cardiac rehabilitation program is designed to optimize a patient's physical, psychological, and social functioning. Health senior care assistant work in cardiac rehabilitation programs and assist you with getting the treatments you need to get stronger and healthier - like exercise, healthy eating habits, and medications. Cardiac rehabilitation has been show to help people with heart problems live longer and have better life enjoyment than people who do not go to cardiac rehabilitation. Please contact the Cardiac Rehabilitation Program at [facility] at in two weeks if you have not heard from them.
--- NOTE | 2019-03-12 11:13 | CRPH1.INSTRU ---
General Education CAD and cardiac anatomy and function:: Not instructed Explanation of diagnoses and procedures:: Not instructed Sign/Symptoms of [place]:: Not instructed Antiplatelet therapy: Not instructed Proper use of NTG-SL: Not instructed Emergency procedures and activation of EMS: Not instructed Compliance of all prescribed medications: Not instructed - former phase I and Phase II Cardiac Rehab patient
[2019-03-12] MEDS: diazePAM 5 MG Tablet PO (11:35)
[2019-03-12] MEDS: HYDROcodone Bitartrate/Apap 5/325 Tablet PO ×3 (11:35→22:14)
[2019-03-12] MEDS: Rosuvastatin Calcium 5 MG Tablet PO (21:20)
[2019-03-12] MEDS: LORazepam 1 MG Tablet PO (22:14)
--- NOTE | 2019-03-12 23:04 | EKG12_ITS ---
Test Reason : PCI Blood Pressure : / mmHG Vent. Rate : 054 BPM Atrial Rate : 054 BPM P-R Int : 168 ms QRS Dur : 092 ms QT Int : 466 ms P-R-T Axes : 048 -18 -18 degrees QTc Int : 441 ms Sinus bradycardia with sinus arrhythmia with occasional Premature ventricular complexes Inferior infarct , age undetermined Abnormal ECG When compared with ECG of 12-MAR-2019 23:07, MANUAL COMPARISON REQUIRED, DATA IS UNCONFIRMED Confirmed by REJI PERALTA, BRETT ([id number]), photography editor KATHRIN BELL ([id number]) on 03/14/2019 9:55:10 AM Referred By: Sacha Coles Confirmed By:HELENA MENDOZA MD
[2019-03-13] VITALS (9 sets, daily range): BP systolic 119–157; BP diastolic 54–76; PULSE 48–62; RESP 11–17; TEMP 36.2–36.9; O2SAT 98–100
[2019-03-13] MEDS: HYDROcodone Bitartrate/Apap 5/325 Tablet PO ×2 (04:41→09:19)
[2019-03-13 04:55] LABS: Hematocrit 37.7 % (40-54); Hemoglobin 12.6 g/dL (13.0-16.5); Mean Corp Hgb Conc 33.4 g/dL (32-36); Mean Corpuscular Hgb 30.2 pg (27.0-32.0); Mean Corpuscular Volume 90.4 fL (80-94); Platelet Count 236 K/mm3 (150-450); RBC Distribution Width CV 12.7 % (11.6-14.6); RBC Distribution Width SD 41.9 fl (35.1-43.9); Red Blood Count 4.17 M/mm3 (4.6-6.2); White Blood Count 5.4 K/mm3 (4.4-11.0)
[2019-03-13 05:16] LABS: Anion Gap 7 (5-15); BUN 14 mg/dL (7-18); BUN/Creat Ratio 19.9 RATIO (10-20); Calcium,Total 8.6 mg/dL (8.5-10.1); Chloride 110 mmol/L (98-107); Cholesterol 145 mg/dL (200); EST Glomerular Filtration Rate 121 mL/min (>60); Est Glom Filt Rate - Afr Amer 146 mL/min (>60); Estimated Creatinine Clearance 116.54 ml/min; Glucose 102 mg/dL (74-106); High Density Lipoprotein 40 mg/dL; Sodium Level 144 mmol/L (136-145); Triglycerides 78 mg/dL; Very Low Density Lipoprotein 16 mg/dL (5-40)
--- NOTE | 2019-03-13 08:26 | DCINST_ITS ---
Discharge Diet: Low fat/ Low Cholesterol Discharge Activity: Return to Normal Activity Return to work on:: 03/19/19 May shower in (days): 1 Lifting Restrictions: 10 pounds and also avoid any pushing or pulling for 3 days after your test. Call your doctor if your incision/area has: Continuous Slow Oozing, Sudden Increased Bleeding, Increased Pain/ Swelling, Increased Redness, Foul Smelling Discharge, Swelling at the incision site Call your doctor if you observe: Fever of 101 or Higher, Shortness of breath, Chest pain Remove Dressing in (days):: 1 Additional Dressing/Incision Instructions:: Keep the dressing (bandage) on until the next morning. You may then shower, but do not take a tub bath for 5 days after your test. It is normal to have some tenderness and discomfort at the puncture site. Sometimes bruising also occurs. However, if pain, numbness, or coldness occurs below the puncture site (in your leg, toes, arms or fingers) call your doctor at once. You may have a small, marble sized knot at the puncture site. This is normal. Do not rub it. It will go away in 4-6 weeks. Bleeding can occur from the area where the puncture was done. Blood may spurt or drip from the site. If blood spurts, apply pressure right away to stop bleeding and call 911. Although rare, bleeding into the tissue (hematoma) can also occur. If this happens, a large, firm area goose egg under the skin will appear. If any of these occur, lie down as flat as you can and have someone apply firm pressure to the cath site with a gauze pad or a clean washcloth for 10-15 minutes. Call 911 or go to the Emergency Department. Additional Instructions: you were started on losartan to help with BP control. To help with your leg cramps try taking a Vitamin D supplement to see if this helps. After you are seen in the office, you can restart cardiac rehab Allergies/Adverse Reactions: Allergies etodolac Allergy (Severe, Verified 02/27/19 11:25) Hives atorvastatin [From Lipitor] Adverse Reaction (Severe, Verified 02/27/19 11:25) Myalgias Medications to take at Discharge Hydrocodone/Acetaminophen [Hydrocodone-Acetamin 5-325 mg] 1 tab PO Q4H PRN PRN 07/04/18 Multivitamin [Multiple Vitamins] 1 tab PO DAILY 07/04/18 Lorazepam [Ativan] 1 mg PO DAILY PRN PRN #5 tab 07/06/18 aspirin 81 mg tablet,delayed release 81 mg PO DAILY@0800 #90 tab 07/16/18 metoprolol tartrate 25 mg tablet 25 mg PO .COMPLEX #30 tab 08/08/18 tiotropium 2.5 mcg-olodaterol 2.5 mcg/actuation mist for inhalation 2 puff INHALATION Q24H #4 g 09/17/18 rosuvastatin 5 mg tablet 5 mg PO DAILY #30 tab 11/13/18 clopidogrel 75 mg tablet 75 mg PO DAILY tab 02/27/19 furosemide 20 mg tablet 20 mg PO DAILY #90 tab 02/27/19 Losartan Potassium [Cozaar] 25 mg PO DAILY #30 tab 03/13/19 The following prescriptions were given: Losartan Potassium [Cozaar] 25 mg PO DAILY #30 tab Transmission Status: Sent to [employer] #30 Primary Care Physician: Carolina Pablo MD [Primary Care Provider] - Please follow up with your Primary Care Physician in: 4 weeks Test Results: Test results from this visit will be discussed in further detail at your follow- up appointment, if applicable. Please Follow Up With: Marina Rojas PA When: 04/01 at 1:30pm Cardiac Rehabilitation Info Cardiac Rehabilitation Program Information: Cardiac Rehabilitation is important for patients like you who are recovering from a heart problem. Cardiac rehabilitation programs are recognized as integral to the continued care of the patient with coronary heart disease. The cardiac rehabilitation program is designed to optimize a patient's physical, psychological, and social functioning. Health day care home mother work in cardiac rehabilitation programs and assist you with getting the treatments you need to get stronger and healthier - like exercise, healthy eating habits, and medications. Cardiac rehabilitation has been show to help people with heart problems live longer and have better life enjoyment than people who do not go to cardiac rehabilitation. Please contact the Cardiac Rehabilitation Program at [facility] at in two weeks if you have not heard from them.
--- NOTE | 2019-03-13 08:49 | PCM.PN.CARD ---
Subjectve: Patient doing very well this morning, no 24-hour events. Telemetry showed normal sinus rhythm with rare PVCs and ventricular bigeminy. EKG today shows normal sinus rhythm, no acute changes. Right groin is clean/dry/intact. Hemoglobin and creatinine are within nominal limits. Objective: Vital Signs Temp Pulse Resp BP Pulse Ox 97.8 F 52 L 11 L 157/61 H 100 03/13/19 07:33 03/13/19 07:33 03/13/19 07:33 03/13/19 07:33 03/13/19 07:33 Oxygen Delivery Method Room Air Weight: 233 lb 3.985 oz Body Mass Index (BMI) 32.2 Intake and Output for Last 24 Hours 03/11/19 03/12/19 03/13/19 23:59 23:59 23:59 Intake Total 1580 / 1580 240 / 240 Output Total 825 / 825 600 / 600 Balance 755 / 755 -360 / -360 General: Awake, Alert, Oriented x 3 HEENT: PERRL, EOMI, Sclera Non Icteric Neck: Supple, Good ROM, No Lymph Node Enlargement Lungs: Clear to auscultation Cardiovascular: Regular Rhythm, Normal S1, Normal S2, No Murmurs, No Rubs, No Gallops Vascular: No Carotid Bruits, Normal Femoral Pulses, Normal Radial Pulses, Normal Dorsalis Pedal Pulse, Normal Posterior Tibial Pulses Abdomen: Bowel Sounds Present, Soft, Non Tender, No HSM, No Organomegaly Extremities: No Cyanosis, No Clubbing, No edema Neurological: No Focal Motor or Sensory Deficit 03/12/19 09:17: VBG pH 7.36, VBG pO2 35, VBG O2 Sat (Calc) 65, VBG O2 Content 26, VBG Base Excess -1 03/12/19 09:20: VBG pH 7.37, VBG pO2 37, VBG O2 Sat (Calc) 68, VBG O2 Content 26, VBG Base Excess 0 03/12/19 09:24: pH 7.36, Bicarbonate Actual 23.7, POC Total CO2 25, Base Excess -2, O2 Saturation 96, ABG pCO2 41.8, ABG pO2 86 03/13/19 04:45: WBC 5.4, RBC 4.17 L, Hgb 12.6 L, Hct 37.7 L, MCV 90.4, MCH 30.2, MCHC 33.4, Plt Count 236, MPV 10.0 03/13/19 04:45: Sodium 144, Potassium 4.0, Chloride 110 H, Carbon Dioxide 27.0, Anion Gap 7, BUN 14, Creatinine 0.70, Est GFR (MDRD) Af Amer 146, Est GFR (MDRD) Non-Af 121, BUN/Creatinine Ratio 19.9, Glucose 102, Calcium 8.6, Triglycerides 78, Cholesterol 145, LDL Cholesterol 89, VLDL Cholesterol 16, HDL Cholesterol 40 Rhythm: EKG: ECHO: Stress Test: Cardiac Cath: PCI: CT Surgery: Holter monitor: EPS: PPM: CXR: Chest CT Scan: Medical Necessity - Tobacco Use Smoking Status: Current every day smoker Tobacco Use: Chew Assessment/Plan 1. Coronary artery disease: Patient status post FFR guided angioplasty and drug-eluting stenting to his proximal LAD with an excellent result. This morning he is doing quite well. He denies any chest pain or angina. EKG is negative. Right groin is clean/dry/intact without evidence of thrills, bruits or hematoma. Telemetry is negative. At this point I recommend decreasing his metoprolol to 12.5 mg p.o. twice daily given his bradycardia superimposed on his shortness of breath. If this is unsuccessful with normalizing his heart rate during exertion, we will discontinue his metoprolol altogether. We will attempt to see whether his heart rate increases a cardiac rehab. In addition we will add losartan 25 mg p.o. daily for his blood pressure and vascular disease. Patient will be enrolled in cardiac rehab going forward. Recommend he remain off work for 1 week's time. 2. Hyperlipidemia: The patient completed some mild calf myalgias with Crestor. Recommend starting vitamin D 2000 units p.o. daily. If this does not improve he may require changing to a different statin based medication. 3. Patient may be discharged home and follow-up with Dr. Coles going forward. Code Visit Inpatient E&M: 44538 Subs Hosp L2
[2019-03-13] MEDS: Metoprolol Tartrate 25 MG Tablet 12.5 MG PO (09:20)
[2019-03-13] MEDS: Furosemide 20 MG Tablet PO (09:22)
[2019-03-13] MEDS: Multivitamins,Therapeutic Tablet 1 TABLET PO (09:22)
[2019-03-13] MEDS: Clopidogrel Bisulfate 75 MG Tablet PO (09:23)
[2019-03-13] MEDS: Aspirin E.C. 81 MG Tablet PO (09:23)
--- NOTE | 2019-03-13 10:00 | EKG12_ITS ---
Test Reason : PCI Blood Pressure : / mmHG Vent. Rate : 056 BPM Atrial Rate : 056 BPM P-R Int : 162 ms QRS Dur : 100 ms QT Int : 464 ms P-R-T Axes : 126 202 204 degrees QTc Int : 447 ms Suspect arm lead reversal, interpretation assumes no reversal Normal Sinus Rhythm with PVC's Inferior infarct , age undetermined Abnormal ECG When compared with ECG of 12-MAR-2019 10:56, MANUAL COMPARISON REQUIRED, DATA IS UNCONFIRMED Confirmed by REJI PERALTA, BRETT ([id number]), editor at large KATHRIN BELL ([id number]) on 03/14/2019 9:55:59 AM Referred By: Sacha Coles Confirmed By:HELENA MENDOZA MD
== END 2019-03-13 09:58 | disposition home or self-care (01) ==
LOC: CLSP 07:34 → ICU 03-13 09:23
PROVIDERS: Family Provider Internal Medicine; PCP Internal Medicine; Referring Provider Internal Medicine Cardiovascular Disease; Visit Provider Internal Medicine Cardiovascular Disease
DX: I25.110 Atherosclerotic heart disease of native coronary artery with unstable angina pectoris (principal); J44.9 Chronic obstructive pulmonary disease, unspecified; I10 Essential (primary) hypertension; E78.5 Hyperlipidemia, unspecified; I25.2 Old myocardial infarction; Z79.02 Long term (current) use of antithrombotics/antiplatelets; Z79.82 Long term (current) use of aspirin; Z79.899 Other long term (current) drug therapy; Z87.891 Personal history of nicotine dependence; Z95.5 Presence of coronary angioplasty implant and graft
CPT/HCPCS: 71046; 80048; 80061; 82803; 85027; 85347; 92928; 93005; 93460; 93571; 99152; 99153; J0153; J7030; J7040; Q9967; C1725; C1751; C1769; C1874; C1887; C1894; C9600

== ENCOUNTER → 2020-09-28 10:45 | Outpatient (CLI) | payer BC, SELFPAY ==
[2018-07-04 10:10] VITALS: BMI 31.4
[2020-09-28 09:44] VITALS: BMI 32.6
[2020-09-28 12:13] LABS: AST(SGOT) 15 U/L (15-37); Alanine Aminotransfer ALT/SGPT 20 U/L (16-61); Albumin, Serum 3.5 g/dL (3.2-5.0); Alkaline Phosphatase 129 U/L (45-117); Bilirubin, Direct 0.05 mg/dL (0.00-0.30); Cholesterol 218 mg/dL (200); High Density Lipoprotein 45 mg/dL; Protein, Total 7.5 g/dL (6.4-8.2); Triglycerides 119 mg/dL; Very Low Density Lipoprotein 24 mg/dL (5-40)
== END ==
PROVIDERS: PCP Internal Medicine; Referring Provider Internal Medicine Cardiovascular Disease; Visit Provider Internal Medicine Cardiovascular Disease
DX: E78.00 Pure hypercholesterolemia, unspecified (principal)
CPT/HCPCS: 36415; 80061; 80076

== ENCOUNTER → 2020-10-14 06:21 | Outpatient (CLI) | payer BC, SELFPAY ==
[2018-07-04 10:10] VITALS: BMI 31.4
[2020-09-28 09:44] VITALS: BMI 32.6
--- NOTE | 2020-10-14 06:23 | ECHOD_ITS ---
Reason For Study: CAD Procedure This was a 2D Doppler, Color Flow transthoracic echocardiogram. Exam performed in department. Left Ventricle Normal LV size. Left ventricular systolic function is normal. The estimated ejection fraction is 55 %. Anterio-Basal: Hypokinetic. The rest of the wall segments are normal. Right Ventricle Normal RV size. Normal systolic function. Atria Normal left atrium. Normal right atrium. Mitral Valve Normal mitral valve. Mild (1+) eccentric mitral valve insufficiency. Tricuspid Valve Normal tricuspid valve. Mild (1+) tricuspid valve insufficiency. Pulmonary artery systolic pressure is 34 mmHg. Aortic Valve Trisinus/trileaflet aortic valve. Mild focal aortic valve calcification. Great Vessels Normal aortic root. The pulmonary artery is normal size. Normal inferior vena cava. Pericardium/Pleural No pericardial effusion. MMode/2D Measurements & Calculations LVIDd: 5.3 cm IVSd: 1.1 cm Ao root diam: 3.3 cm LVIDs: 3.8 cm LVPWd: 0.93 cm RVDd: 3.8 cm FS: 28.4 % LAV(MOD-bp): 51.3 ml EDV(MOD-sp4): 126.2 ml EDV(MOD-sp2): 132.5 ml LAV(MOD-bp) Indexed: 22.8 ml/m2 ESV(MOD-sp4): 57.0 ml EF(MOD-sp2): 58.0 % LAV(MOD-sp2): 38.9 ml EF(MOD-sp4): 54.9 % LAV(MOD-sp4): 64.1 ml SV(MOD-sp4): 69.3 ml SV(MOD-sp2): 76.9 ml LA A4 area: 21.1 cm2 LA dimension(2D): 3.4 cm RA A4 area: 15.3 cm2 Doppler Measurements & Calculations MV E max elton: 87.3 cm/sec Lat Peak E' Elton: 12.0 cm/sec Med Peak E' Elton: 6.4 cm/sec MV A max elton: 87.6 cm/sec E/E' lat: 7.3 E/E' med: 13.6 MV E/A: 1.00 Ao V2 max: 175.0 cm/sec LV V1 max: 118.1 cm/sec PA V2 max: 116.3 cm/sec Ao max P.2 mmHg LV V1 max P.6 mmHg TR max elton: 272.3 cm/sec TR max P.7 mmHg Interpretation Summary Normal LV size. Left ventricular systolic function is normal. The estimated ejection fraction is 55 %. Mild (1+) tricuspid valve insufficiency. Anterio-Basal: Hypokinetic The global longitudinal strain is normal. The global longitudinal strain = -21.8 % (normal). Ordering Physician: Jose Elias Referring Physician: Carolina Pablo M.D. Performed By: Vikki Deluna RDCS
--- NOTE | 2020-10-14 09:06 | STRESSREP ---
Stress Test Report Pharmacologic myocardial perfusion stress test. 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 Stress protocol: Resting EKG demonstrates sinus bradycardia with a rate of 52 bpm normal intervals are noted resting blood pressure is 148/80 mmHg. 0.4 mg of regadenoson was infused per usual protocol followed by rapid venous saline flush injection continuous EKG monitoring is performed. The maximum heart rate was 79 bpm which was 50% of max impacted heart rate the maximum workload was 1 metabolic equivalent. At rest there were no ST or T wave changes noted to suggest abnormal flow reserve at peak infusion nonspecific ST-T wave changes were noted with no meet the criteria for ischemia. The resting blood pressure is 148/80 with a final blood pressure 160/78 mmHg. Myocardial perfusion protocol. 11.8 mCi of technetium 99m sestamibi was injected at rest. 0.4 mg of regadenoson was infused per usual protocol. At peak infusion 33.0 mCi of technetium 99m sestamibi was injected stress images were obtained stress and rest images were reconstructed and compared in the short axis vertical long horizontal long axis. Gated images were also obtained per Perfusion SPECT analysis: Review of the stress images demonstrate mild reduction of perfusion on the stress images in the mid inferior wall towards the base. The rest of the davis appear to have normal perfusion. The rest images demonstrate a similar patent. The above is suggestive of a likely previous inferior myocardial infarction. No ischemia is noted. Gated SPECT analysis: The gated ejection fraction is 53%. Conclusion: Pharmacologic myocardial perfusion stress test with evidence of previous inferior infarct. No ischemia noted. Preserved ejection fraction.
== END ==
PROVIDERS: PCP Internal Medicine; Visit Provider Internal Medicine Cardiovascular Disease
DX: I25.10 Atherosclerotic heart disease of native coronary artery without angina pectoris (principal); Z95.5 Presence of coronary angioplasty implant and graft
CPT/HCPCS: 78452; 93017; 93306; A9500; A4216; J2785

== ENCOUNTER 2021-01-05 16:40 | Emergency (ER) | payer BC, SELFPAY ==
[2018-07-04 10:10] VITALS: BMI 31.4
[2020-09-28 09:44] VITALS: BMI 32.6
[2021-01-05 16:41] VITALS: BP 159/74; PULSE 67; RESP 15; TEMP 36.3; O2SAT 97; BMI 33.5
--- NOTE | 2021-01-05 17:11 | CT_ITS ---
STUDY: CT ABDOMEN AND PELVIS WITHOUT CONTRAST REASON FOR EXAM: Male, 65 years old. Kidney Stone RADIATION DOSAGE (If Supplied By Facility): CTDIvol = ( 15.73 ) mGy, DLP = ( 801.58 ) mGycm TECHNIQUE: Transaxial images were obtained from the dome of the diaphragm to the symphysis pubis without oral contrast, and without intravenous contrast. Sagittal and coronal images were reconstructed. Individualized dose optimization techniques were used for this CT. COMPARISON: None. FINDINGS: The visualized lung bases are unremarkable. The visualized portions of the heart are within normal limits. Multiple small hepatic cysts. 3 cm partially exophytic subcapsular cyst of the posterior segment the right lobe of the liver. Normal gallbladder and extrahepatic biliary system. Normal spleen. Normal pancreas. Normal bilateral adrenal glands. 3 mm nonobstructing stone in the upper pole the right kidney. 5 mm nonobstructing stone at the right ureteropelvic junction. Normal left kidney. Normal visualized stomach. Normal small intestine. There are multiple colonic diverticula consistent with diverticulosis. The appendix is visualized and appears normal. Normal abdominal aorta. Normal inferior vena cava. Normal retroperitoneum. Normal urinary bladder. There are prostatic calcifications. Normal abdominal wall. There are diffuse degenerative changes of the visualized lumbar spine. CT/Abdomen/Pelvis without Cont IMPRESSION: 5 mm nonobstructing stone of the right ureteropelvic junction. Electronically Signed: Kemal Yu MD at 17:51 EDT Tel , Service support ,
--- NOTE | 2021-01-05 17:12 | EDS_ITS ---
HPI HPI - GI History of Present Illness Chief Complaint: Flank Pain Narrative Narrative: Patient presenting for evaluation secondary to concerns for kidney stone. Patient has a history of very frequent kidney stones, has had to have lithotripsy as well as removal of a staghorn calculus in the past. Patient states that he has been dealing with right-sided flank pain over the course of the last 2 weeks, initially was intermittent but now is becoming more persi stent. States that it radiates down into his right groin and has been associated with hematuria. States that he is still urinating, but states that he has had a relatively significant amount of hematuria. Pain is moderate to severe no exacerbating relieving factors he denies constitutional symptoms such as fever. No nausea or vomiting. States last time he had this was around 2 or 3 months ago, he has been able to pass his kidney stones more easily recently, but does not feel he is been able to pass this [address]. [facility] Medical History (Updated 01/05/21 @ 19:[address] Jeffery Rodriguez MD) Acute inferior myocardial infarction (07/04/18) Atherosclerosis of coronary artery of [place] heart without angina pectoris Dyspnea on exertion Essential (primary) hypertension History of inferior wall myocardial infarction (07/04/18) History of ST elevation myocardial infarction (STEMI) (07/04/18) Hyperlipidemia Nicotine dependence Obesity Stage 1 mild COPD by GOLD classification STEMI (ST elevation myocardial infarction) Home Medications multivitamin 1 tab PO DAILY 07/04/18 [History Last Taken Unknown] lorazepam 1 mg PO DAILY PRN PRN #5 tab 07/06/18 [Rx Last Taken Unknown] cholecalciferol (vitamin D3) 25 mcg (1,000 unit) capsule 1,000 unit PO DAILY 04/01/19 [History Last Taken Unknown] losartan 25 mg tablet 25 mg PO DAILY #90 tab 03/15/20 [Rx Last Taken Unknown] clopidogrel 75 mg tablet 75 mg PO DAILY #90 tab 08/23/20 [Rx Last Taken Unknown] aspirin 81 mg tablet,delayed release 81 mg PO DAILY@0800 #90 tab 09/28/20 [Rx Last Taken Unknown] furosemide 20 mg tablet 20 mg PO DAILY #90 tab 09/28/20 [Rx Last Taken Unknown] rosuvastatin 20 mg tablet 20 mg PO DAILY #30 tab 09/28/20 [Rx Last Taken Unknown] metoprolol tartrate 12.5 mg PO BID 01/05/21 [History Last Taken Unknown] oxycodone-acetaminophen [Endocet] 1 tab PO Q6H PRN 3 Days #12 tab 01/05/21 [Rx Last Taken Unknown] tamsulosin [Flomax] 0.4 mg PO DAILY #10 cap 01/05/21 [Rx Last Taken Unknown] Allergy/AdvReac Type Severity Reaction Status Date / Time etodolac Allergy Severe Hives Verified 01/05/21 16:42 atorvastatin [From Lipitor] AdvReac Severe Myalgias Verified 01/05/21 16:42 Family History Father Heart disease Mother Cancer Surgical History H/O hemorrhoidectomy History of back surgery History of coronary artery stent placement (03/12/19) Social History Smoking Status: Current every day smoker alcohol intake: never substance use type: does not use ROS ROS ED Constitutional Constitutional ED: Denies chills or fever(s) ENT ENT ED: Denies rhinorrhea Cardiovascular Cardiovascular: Denies chest pain Respiratory/Chest Respiratory/Chest: Denies cough or dyspnea Gastrointestinal Gastrointestinal: Reports other Details: Positive for flank pain ; Denies abdominal pain, diarrhea, nausea or vomiting Genitourinary Genitourinary ED: Reports hematuria; Denies dysuria Musculoskeletal Musculoskeletal: Denies back pain Integumentary Denies rash Neurologic Neurologic: Denies paresthesias or weakness Psychiatric Psychiatric: Denies depression Endocrine Endocrinology: Denies fatigue Allergic/Immunologic Allergic/Immunologic ED: Denies urticaria EXAM Physical Exam Const Vital Signs: 01/05/21 16:41 01/05/21 17:23 Temperature 97.3 F L 97.3 F L Temperature Source Temporal Temporal Pulse Rate 67 67 Respiratory Rate 15 15 Blood Pressure 159/74 H 159/74 H Blood Pressure Mean 102 102 Pulse Ox 97 97 Oxygen Delivery Method Room Air Room Air Positive well nourished and well developed Constitutional Narrative: Patient is clearly uncomfortable, walking around the room holding his back but otherwise not in physiologic distress General Appearance ED: well developed and NAD HEENT Reports moist mucous membranes Negative for trauma or tenderness Eyes EOMs intact bilaterally Neck no lymphadenopathy, supple and no JVD Chest Wall inspection of chest normal Resp normal respiratory effort and clear to auscultation bilaterally Cardio regular rate, regular rhythm, no murmurs and peripheral pulses 2+ throughout GI normal to inspection, nondistended, normoactive bowel sounds, non-tender and no masses Palpation: soft Back/Spine normal to inspection Extremity normal to inspection General Extremety ED: Negative for tenderness Neuro oriented x3 and no sensory deficits noted Sensorium / Orientation: alert Motor Exam: strength 5/5 throughout Psych mental status grossly normal Skin no rashes or lesions noted MDM MDM MDM Narrative Medical decision making narrative: Patient presented with signs and symptoms consistent with that of a kidney stone. CT imaging confirmed this and showed a 5 mm nonobstructive stone at the right ureteropelvic junction. Patient's urinalysis shows red cells but no evidence of pyuria or infection. Kidney function is a stable and at baseline, no evidence of leukocytosis. Patient's pain was addressed in the emergency department with Toradol and morphine times 2 repeat evaluation at 1900 did show some symptomatic improvement. Given the fact that the patient has had symptoms for 2 weeks I am skeptical that he is going to pass the stone on his own I did contact urology, Dr. Mckenna, who agrees to follow the patient up as an outpatient. Patient will be sent home with a course of Percocet and Flomax. He understands signs and symptoms which to return. Lab Data Labs: Laboratory Results - last 24 hr 01/05/21 01/05/21 01/05/21 17:25 17:25 17:52 WBC 5.5 RBC 4.64 Hgb 14.2 Hct 41.6 MCV 89.7 MCH 30.6 MCHC 34.1 RDW Std Deviation 41.9 RDW Coeff of Guillermo 12.8 Plt Count 284 MPV 9.8 Immature Gran % (Auto) 0.200 Neut % (Auto) 58.5 Lymph % (Auto) 32.1 [place] % (Auto) 7.7 Eos % (Auto) 1.1 Baso % (Auto) 0.4 Absolute Neuts (auto) 3.2 Absolute Lymphs (auto) 1.75 Nucleated RBC % 0 Sodium 140 Potassium 3.8 Chloride 106 Carbon Dioxide 26.0 Anion Gap 8 BUN 14 Creatinine 0.90 Estim Creat Clear Calc 89.48 Est GFR (MDRD) Af Amer 109 Est GFR (MDRD) Non-Af 90 BUN/Creatinine Ratio 15.5 Glucose 90 Calcium 9.3 Urine Color Red Urine Clarity Cloudy Urine pH 7.0 Ur Specific [place] 1.015 Urine Protein 30 H Urine Glucose (UA) Normal Urine Ketones Negative Urine Occult Blood 250 H Urine Nitrite Negative Urine Bilirubin Negative Urine Urobilinogen Normal Ur Leukocyte Esterase Negative Urine RBC > 100 SEEN Urine WBC 0-5 SEEN Ur Squamous Epith Cells 0 SEEN Urine Bacteria 0 SEEN Urine Mucus 0 SEEN Radiography Diagnostic Testing: Radiology Impression Abdomen/Pelvis CT 01/05/21 17:11 IMPRESSION: 5 mm nonobstructing stone of the right ureteropelvic junction. Electronically Signed: Kemal Yu MD at 17:51 EDT Tel , Service support , Discharge Plan Triage Chief Complaint: Flank Pain ED Provider: Jeffery Rodriguez Dx/Rx/DC Orders Clinical Impression: Urolithiasis Instructions: ED Kidney Stone w/ Colic Prescriptions: New oxycodone-acetaminophen [Endocet] 5-325 mg tablet 1 tab PO Q6H PRN (Reason: pain) 3 Days Qty: 12 RF: 0 tamsulosin [Flomax] 0.4 mg capsule 0.4 mg PO DAILY Qty: 10 RF: 0 No Action cholecalciferol (vitamin D3) 1,000 unit capsule 1,000 unit PO DAILY RF: 0 furosemide 20 mg tablet 20 mg PO DAILY Qty: 90 RF: 3 aspirin 81 mg tablet,delayed release (DR/EC) 81 mg PO DAILY@0800 Qty: 90 RF: 3 multivitamin 1 EACH tablet 1 tab PO DAILY RF: 0 lorazepam 1 MG tablet 1 mg PO DAILY PRN PRN (Reason: Anxiety/Insomnia) Qty: 5 RF: 0 metoprolol tartrate 25 mg tablet 12.5 mg PO BID RF: 0 losartan 25 mg tablet 25 mg PO DAILY Qty: 90 RF: 3 clopidogrel [Plavix] 75 mg tablet 75 mg PO DAILY Qty: 90 RF: 3 rosuvastatin [Crestor] 20 mg tablet 20 mg PO DAILY Qty: 30 RF: 11 Primary Care Provider: Carolina Pablo Referrals: Matty Mckenna MD [STAFF PHYSICIAN] - (Call the office tomorrow) Carolina Pablo MD [Primary Care Provider] - Disposition Disposition: Home, self care
[2021-01-05 17:23] VITALS: BP 159/74; PULSE 67; RESP 15; TEMP 36.3; O2SAT 97
[2021-01-05 17:43] LABS: Absolute Lymphocyte Count 1.75 X10^3/uL (0.83-4.51); Absolute Neutrophil Count 3.2 X10^3/uL (2.0-7.7); Basophil# 0.02 X10^3/uL; Basophil% 0.4 % (0-1); Eosinophil# 0.06 X10^3/uL; Eosinophils% 1.1 % (0-5); Hematocrit 41.6 % (40-54); Hemoglobin 14.2 g/dL (13.0-16.5); Lymphocyte # 1.75 X10^3/ul (0.83-4.51); Lymphocyte % 32.1 % (19-41); Mean Corp Hgb Conc 34.1 g/dL (32-36); Mean Corpuscular Hgb 30.6 pg (27.0-32.0); Mean Corpuscular Volume 89.7 fL (80-94); Mean Platelet Vol. 9.8 fl (6.2-12.0); Monocyte# 0.42 X10^3/uL; Monocyte% 7.7 % (0-10); NRBC Flagged by Analyzer 0 % (0-5); Neutrophil # 3.19 X10^3/uL (2.7-7.7); Neutrophil % 58.5 % (47-70); Platelet Count 284 K/mm3 (150-450); RBC Distribution Width CV 12.8 % (11.6-14.6); RBC Distribution Width SD 41.9 fl (35.1-43.9); Red Blood Count 4.64 M/mm3 (4.6-6.2); White Blood Count 5.5 K/mm3 (4.4-11.0)
[2021-01-05] MEDS: Morphine 4 MG/ML Syringe IV ×2 (17:47→18:52)
[2021-01-05] MEDS: Ketorolac 15 MG/ML Vial IV (17:47)
[2021-01-05 18:03] LABS: Bacteria 0 SEEN /hpf (None Seen); Mucous, Urine 0 SEEN /hpf (<or=2+); Squamous Epithelial Cells - UA 0 SEEN /hpf (0-5)
[2021-01-05 18:06] LABS: Anion Gap 8 (5-15); BUN 14 mg/dL (7-18); BUN/Creat Ratio 15.5 RATIO (10-20); Calcium,Total 9.3 mg/dL (8.5-10.1); Chloride 106 mmol/L (98-107); EST Glomerular Filtration Rate 90 mL/min (>60); Est Glom Filt Rate - Afr Amer 109 mL/min (>60); Estimated Creatinine Clearance 89.48 ml/min; Glucose 90 mg/dL (74-106); Potassium 3.8 mmol/L (3.5-5.1); Sodium Level 140 mmol/L (136-145)
[2021-01-05 18:09] LABS: Color, Urine Red (Yellow); Glucose, Dipstick Normal (Normal); Nitrite-Dipstick Negative (Negative); Occult Blood-Urine 250 /ul (Negative); Urine Bilirubin Dipstick Negative (Negative); Urine Clarity Cloudy (Clear); Urine Urobilinogen Normal (Normal)
[2021-01-05 18:24] LABS: Ketone-Dipstick Negative (Negative); Leukocyte Esterase-Dipstick Negative /ul (Negative); Protein-Dipstick 30 mg/dl (Negative); Specific Gravity, Urine 1.015 (1.002-1.030)
[2021-01-05 18:57] LABS: Red Blood Cells-Urine > 100 SEEN /hpf (0-5)
[2021-01-05 19:02] LABS: White Blood Cells 0-5 SEEN /hpf (0-5)
[2021-01-05] MEDS: oxyCODONE 5 MG Tablet PO (19:34)
[2021-01-05 19:38] VITALS: BP 138/84; PULSE 59; PULSE 61; RESP 16; TEMP 36.6; O2SAT 97; O2SAT 98
[2021-01-05 19:41] VITALS: BP 138/84; PULSE 60; RESP 16; TEMP 36.7; O2SAT 99
== END 2021-01-05 19:43 | disposition home or self-care (01) ==
PROVIDERS: Emergency Provider Emergency Medicine; PCP Internal Medicine
DX: N20.1 Calculus of ureter (principal); I25.10 Atherosclerotic heart disease of native coronary artery without angina pectoris; J44.9 Chronic obstructive pulmonary disease, unspecified; I10 Essential (primary) hypertension; E78.5 Hyperlipidemia, unspecified; E66.9 Obesity, unspecified; F17.200 Nicotine dependence, unspecified, uncomplicated; Z79.82 Long term (current) use of aspirin; Z79.02 Long term (current) use of antithrombotics/antiplatelets; Z79.899 Other long term (current) drug therapy; Z87.442 Personal history of urinary calculi; I25.2 Old myocardial infarction
CPT/HCPCS: 74176; 80048; 81001; 85025; 96374; 96375; 96376; 99283; A4216

== ENCOUNTER → 2021-01-10 15:19 | Outpatient (CLI) | payer BC, SELFPAY ==
[2018-07-04 10:10] VITALS: BMI 31.4
[2021-01-05 16:41] VITALS: BMI 33.5
--- NOTE | 2021-01-10 15:20 | RAD_ITS ---
STUDY: X-RAY - ABDOMEN/PELVIS REASON FOR EXAM: Male, 65 years old. right side abdomen pain, possible kidney stones. TECHNIQUE: Single AP view of the abdomen / pelvis. COMPARISON: None. FINDINGS: Normal visualized lung bases. There is an unremarkable bowel gas pattern. The visualized liver, spleen and kidneys are grossly normal in size and morphology. Normal soft tissue structures. Normal visualized osseous structures. RAD/Abdomen Single View IMPRESSION: Normal x-ray examination of the abdomen and pelvis. Electronically Signed: Kemal Yu MD at 8:44 EDT Tel , Service support ,
== END ==
PROVIDERS: PCP Internal Medicine; Referring Provider Urology; Visit Provider Urology
DX: R10.84 Generalized abdominal pain (principal)
CPT/HCPCS: 74018

== ENCOUNTER 2021-01-14 09:57 | Day surgery (SDC) | payer BC, SELFPAY ==
[2018-07-04 10:10] VITALS: BMI 31.4
[2021-01-14] MEDS: Lactated Ringers 1,000 ML 100 ML IV (10:27)
[2021-01-14 10:28] VITALS: BP 145/86; PULSE 52; RESP 16; TEMP 36.2; O2SAT 97; BMI 32.1
--- NOTE | 2021-01-14 13:04 | SUR.PREOP ---
1245 pt given update about delay of surgery. pt having pain- orders for morphine obtained and given given urinal and warm blanket call lt within reach
--- NOTE | 2021-01-14 13:10 | PCM.HP.STD ---
HPI - General HPI Narrative ODALIS COTA, is a 65 M who presents presents with obstructing stone in the proximal right ureter plan to proceed with shockwave lithotripsy. [facility], [facility] Medical History (Updated 01/12/21 @ 13:31 by Lee Ann Lopez) Acute inferior myocardial infarction (07/04/18) Anxiety Arthritis Atherosclerosis of coronary artery of [place] heart without angina pectoris Back pain Cardiology follow-up encounter Dyspnea on exertion Essential (primary) hypertension High cholesterol History of edema History of Helicobacter pylori infection History of inferior wall myocardial infarction (07/04/18) History of irregular heartbeat History of renal disease History of renal stone History of ST elevation myocardial infarction (STEMI) (07/04/18) History of stress test Hx of echocardiogram Hyperlipidemia Leg cramps Loss of hearing Nicotine dependence Obesity Restless legs Shortness of breath on exertion Smoker Stage 1 mild COPD by GOLD classification STEMI (ST elevation myocardial infarction) Syncope Wears dentures Wears glasses Wears partial dentures Home Medications multivitamin 1 tab PO DAILY 07/04/18 [History Last Taken Unknown] lorazepam 1 mg PO DAILY PRN PRN #5 tab 07/06/18 [Rx Last Taken Unknown] cholecalciferol (vitamin D3) 25 mcg (1,000 unit) capsule 1,000 unit PO DAILY 04/01/19 [History Last Taken Unknown] losartan 25 mg tablet 25 mg PO DAILY #90 tab 03/15/20 [Rx Last Taken Unknown] clopidogrel 75 mg tablet 75 mg PO DAILY #90 tab 08/23/20 [Rx Last Taken 01/10/21] aspirin 81 mg tablet,delayed release 81 mg PO DAILY@0800 #90 tab 09/28/20 [Rx Last Taken 01/10/21] furosemide 20 mg tablet 20 mg PO DAILY #90 tab 09/28/20 [Rx Last Taken Unknown] rosuvastatin 20 mg tablet 20 mg PO DAILY #30 tab 09/28/20 [Rx Last Taken Unknown] metoprolol tartrate 12.5 mg PO BID 01/05/21 [History Last Taken Unknown] oxycodone-acetaminophen [Endocet] 1 tab PO Q6H PRN 3 Days #12 tab 01/05/21 [Rx Last Taken Unknown] tamsulosin [Flomax] 0.4 mg PO DAILY #10 cap 01/05/21 [Rx Last Taken Unknown] ciprofloxacin HCl [Cipro] 500 mg PO BID #14 tab 01/14/21 [Rx Last Taken Unknown] oxycodone-acetaminophen [Percocet] 1 tab PO Q4H PRN 7 Days #20 tab 01/14/21 [Rx Last Taken Unknown] Allergy/AdvReac Type Severity Reaction Status Date / Time etodolac Allergy Severe Hives Verified 01/14/21 10:28 atorvastatin [From Lipitor] AdvReac Severe Myalgias Verified 01/14/21 10:28 Family History Father Heart disease Mother Cancer Surgical History (Updated 01/12/21 @ 13:31 by Lee Ann Lopez) H/O hemorrhoidectomy History of back surgery History of cardiac catheterization History of coronary artery stent placement (03/12/19) Hx of colonoscopy Hx of lithotripsy Social History Smoking Status: Current every day smoker tobacco type: cigarettes and smokeless tobacco alcohol intake: never substance use type: does not use Vital Signs Vital Signs Vital Signs: 01/14/21 10:28 Temperature 97.2 F L Temperature Source Temporal Pulse Rate 52 L Respiratory Rate 16 Respiratory Pattern Normal Blood Pressure 145/86 H Blood Pressure Mean 105 Blood Pressure Source Monitor Blood Pressure Position Semi-Fowlers Blood Pressure Location Right Arm Pulse Ox 97 Oxygen Delivery Method Room Air Weight Weight: 104.4 kg Body Mass Index (BMI) 32.1 Physical Exam Const alert and oriented x3 General Appearance: cooperative HEENT normocephalic, head/scalp atraumatic, EAC's normal and TM's normal bilaterally Eyes PERRL and EOMs intact bilaterally Pupil: sluggish Neck no lymphadenopathy, supple and no JVD General: trachea midline Lymph Lymphatic: no lymphadenopathy noted, lymphedema and lymphadenopathy Resp normal respiratory effort, normal air movement and clear to auscultation bilaterally Cardio regular rate, regular rhythm and peripheral pulses 2+ throughout GI soft to palpation, non-tender and non-distended Extremity normal capillary refill and no clubbing, cyanosis or edema General Extremity: no tenderness to palpation of joints or extremities Skin no rashes or lesions noted General Skin Exam: turgor normal Lesions: no lesions Rashes: no rashes Neuro CN's II-XII intact bilaterally Speech: speech normal Motor Exam: strength 5/5 throughout; Negative for general weakness Psych thought process normal, cooperative and affect normal Appearance: appropriate Assessment & Plan Assessment/Plan (1) Urolithiasis: PLAN: Plan to proceed with right shockwave lithotripsy.
--- NOTE | 2021-01-14 13:11 | PCM.DC ---
Discharge Instructions Diet Discharge Diet: No restrictions Activity Discharge Activity: May not drive while taking narcotic pain medications. (for 3 days.) May shower in (days): 1 Dressing / Incision Call your doctor if your incision/area has: Continuous Slow Oozing, Increased Pain/ Swelling, Increased Redness and Foul Smelling Discharge Call your doctor if you observe: Fever of 101 or Higher, Numbness or Tingling, Shortness of breath, Dizziness, Calf discomfort and Uncontrolled pain Cleanse incision/area with: Keep Dressing Clean & Dry Follow Up Care Please Follow Up With: Matty Mckenna MD When: Call [phone] for an appointment Test Results: Test results from this visit will be discussed in further detail at your follow-up appointment, if applicable. Discharge Plan Admission Primary Reason for Your Visit: shockwave lithotripsy Attending Provider: Matty Mckenna Primary Care Provider: Carolina Pablo Discharge Orders/Prescriptions Prescriptions: New ciprofloxacin HCl [Cipro] 500 mg tablet 500 mg PO BID Qty: 14 RF: 0 oxycodone-acetaminophen [Percocet] 5-325 mg tablet 1 tab PO Q4H PRN (Reason: pain) 7 Days Qty: 20 RF: 0 Continued cholecalciferol (vitamin D3) 1,000 unit capsule 1,000 unit PO DAILY RF: 0 furosemide 20 mg tablet 20 mg PO DAILY Qty: 90 RF: 3 multivitamin 1 EACH tablet 1 tab PO DAILY RF: 0 lorazepam 1 MG tablet 1 mg PO DAILY PRN PRN (Reason: Anxiety/Insomnia) Qty: 5 RF: 0 metoprolol tartrate 25 mg tablet 12.5 mg PO BID RF: 0 oxycodone-acetaminophen [Endocet] 5-325 mg tablet 1 tab PO Q6H PRN (Reason: pain) 3 Days Qty: 12 RF: 0 tamsulosin [Flomax] 0.4 mg capsule 0.4 mg PO DAILY Qty: 10 RF: 0 losartan 25 mg tablet 25 mg PO DAILY Qty: 90 RF: 3 rosuvastatin [Crestor] 20 mg tablet 20 mg PO DAILY Qty: 30 RF: 11 Held aspirin 81 mg tablet,delayed release (DR/EC) 81 mg PO DAILY@0800 Qty: 90 RF: 3 Hold Instructions: Resume on 01/18/21. clopidogrel [Plavix] 75 mg tablet 75 mg PO DAILY Qty: 90 RF: 3 Hold Instructions: Resume on 01/18/21. Referrals / Follow Up: Carolina Pablo MD [Primary Care Provider] - Disposition Discharge Orders: Discharge Patient (Routine); Ordered 01/14/21 Ordered By: Dr. Matty Mckenna
[2021-01-14] MEDS: Cefazolin 2 GM in 0.9% Normal Saline 100 ML IV (13:27)
--- NOTE | 2021-01-14 14:10 | PCM.OPRPT ---
Report of Operation Date of Procedure: 01/14/21 Pre-Operative Diagnosis: Right ureteral calculi Post-Operative Diagnosis: same Surgery/Procedure Performed:: Right extracorporeal shockwave lithotripsy Description of Surgical Findings:: Patient presents to the hospital for treatment of a kidney stone with shockwave lithotripsy. In the preoperative area and x-ray was done to confirm the location of the stone. The x-ray was reviewed and the stone location was reviewed. In the preoperative setting I spoke with the patient regarding the treatment of the stone how the treatment would be conducted and the expectations after surgery. The patient understands there is a risk of bleeding and infection. Also discussed the very rare risk of hematoma or damage to the kidney. We also discussed the risk that the shockwave machine will fail to break the stone adequately and that the patient may need other surgical procedures. We also discussed the possibility that the patient may need a stent after the procedure. After reviewing the procedure with the patient, the patient is signed the consent form all the patient's questions were addressed and was taken back to the operating room for treatment of a kidney stone. Patient was taken back to the operating room, patient was identified by the nursing staff, we identified the side of the treatment and the patient side of treatment had been marked by my initials. The patient underwent general anesthetic and was placed supine on the lithotripter table. We then used fluoroscopy to identify the stone on the right proximal ureter. We then positioned the patient under the lithotripter and we used triangulation technique to identify the location of the stone and then we made sure that the stone was engaged in the F2 focal point of F2 Donier lithoprior machine. Once the patient was positioned appropriately and the stone was identified and placed in the F2 focal point of the lithotripter machine we then proceeded with shockwave lithotripsy. In the beginning the shockwave was delivered at a rate of 90 shocks per minute, we monitor the EKG for any ectopy. The power was slowly increased to 5 kV and subsequently at the 7 kV. We then proceeded with the treatment we move the therapy had around during the treatment to make sure the stone stayed in the F2 focal point during the entire treatment and after 3500 shockwaves were delivered to the stone under fluoroscopic guidance the treatment was completed. The patient was given instructions to call the office to make an a follow-up appointment with an xray to evaluate the success of the treatment, pateint understands that its possible the stones may need another procedure.At this point the patient's anesthetic was reversed patient was extubated and taken back to the PACU in stable condition. Surgeon: ivanna Type of Anesthesia: General Admit VTE Documentation VTE Present on Admission: No VTE Mechan Device Prophylaxis: SCD's
[2021-01-14 14:30] VITALS: BP 145/86; BP 154/106; PULSE 66; RESP 16; TEMP 36.4; O2SAT 96
[2021-01-14 14:45] VITALS: BP 145/86; BP 160/82; PULSE 55; RESP 16; O2SAT 99
[2021-01-14 14:55] VITALS: BP 145/86; BP 159/78; PULSE 54; RESP 16; TEMP 35.9; O2SAT 100
[2021-01-14] MEDS: Acetaminophen 325 MG Tablet 650 MG PO (15:25)
[2021-01-14] MEDS: oxyCODONE 5 MG Tablet PO (15:25)
[2021-01-14 16:15] VITALS: BP 145/86; BP 152/71; PULSE 57; RESP 16; TEMP 35.8; O2SAT 100
== END 2021-01-14 16:17 ==
LOC: SDC 09:58 → AC 09:58
PROVIDERS: PCP Internal Medicine; Referring Provider Urology; Visit Provider Urology
PROC: (CPT 50590; principal; 2021-01-14 12:05)
DX: N20.1 Calculus of ureter (principal); I25.10 Atherosclerotic heart disease of native coronary artery without angina pectoris; M19.90 Unspecified osteoarthritis, unspecified site; F41.9 Anxiety disorder, unspecified; I10 Essential (primary) hypertension; E78.5 Hyperlipidemia, unspecified; E66.9 Obesity, unspecified; J44.9 Chronic obstructive pulmonary disease, unspecified; F17.210 Nicotine dependence, cigarettes, uncomplicated; Z68.32 Body mass index [BMI] 32.0-32.9, adult; Z79.82 Long term (current) use of aspirin; Z79.02 Long term (current) use of antithrombotics/antiplatelets; Z79.899 Other long term (current) drug therapy
CPT/HCPCS: 00873; 50590; J2405

== ENCOUNTER → 2021-02-10 15:22 | Outpatient (CLI) | payer BC, SELFPAY ==
[2018-07-04 10:10] VITALS: BMI 31.4
[2021-01-14 10:28] VITALS: BMI 32.1
--- NOTE | 2021-02-10 15:30 | RAD_ITS ---
STUDY: X-RAY - ABDOMEN/PELVIS REASON FOR EXAM: Male, 66 years old. Ureteral calculus TECHNIQUE: Frontal views COMPARISON: None. FINDINGS: Normal visualized lung bases. There is an unremarkable bowel gas pattern. Mild colonic fecal retention. There is no demonstrated free abdominal air. A small right renal upper pole 3 mm stone is suspected. No stone is suspected along the course of the ureters. Normal soft tissue structures. Mild degenerative vertebral changes. RAD/Abdomen Single View IMPRESSION: Small right renal upper pole calculus. Electronically Signed: Osmin Guerra DO at 16:19 EDT Tel [phone], Service support ,
== END ==
PROVIDERS: PCP Internal Medicine; Referring Provider Nurse Practitioner Adult Health; Visit Provider Nurse Practitioner Adult Health
DX: N20.1 Calculus of ureter (principal)
CPT/HCPCS: 74018

== ENCOUNTER → 2025-02-23 | Outpatient (CLI) | payer MEDICARE, SELFPAY ==
[2018-07-04 10:10] VITALS: BMI 31.4
== END | disposition home or self-care (01) ==
LOC: CVS 10:45
PROVIDERS: PCP Internal Medicine; Referring Provider Internal Medicine Cardiovascular Disease; Visit Provider Internal Medicine Cardiovascular Disease
DX: I25.2 Old myocardial infarction (principal); I25.10 Atherosclerotic heart disease of native coronary artery without angina pectoris
CPT/HCPCS: 93306

== ENCOUNTER → 2025-03-24 | Outpatient (CLI) | payer MEDICARE, SELFPAY ==
[2018-07-04 10:10] VITALS: BMI 31.4
--- OUTSIDE RECORDS SUMMARY | 2025-03-24 06:15 | XMS RPT_ITS | CCD ---
Author Organization [facility] CliniSymd Care Team Providers Care Ruby Engineer Name Role Phone Abel Pablo MD Primary Care Provider Abel Pablo MD Primary Care Provider Devine BUSINESS CHANGE MANAGER.ELECTROMECHANICAL ASSEMBLY TECHNICIAN, Domonique Unavailable Al BUSINESS CHANGE MANAGER.INSURANCE SALES AGENT, Angie Unavailable Al BUSINESS CHANGE MANAGER.INSURANCE SALES AGENT, Angie Unavailable Devine BUSINESS CHANGE MANAGER.ELECTROMECHANICAL ASSEMBLY TECHNICIAN, Domonique Unavailable [phone] ABEL PABLO Attending Unavailable HELENAMPISAÍAS, ABEL Agustín Primary Care Unavailable KOKI MCKEON Attending Unavailable ABEL PABLO Primary Care Unavailable HELENAMPABEL MENDEZ Attending Unavailable HELENAMPISAÍAS, ABEL Agustín Primary Care Unavailable HELENAMPISAÍAS, ABEL D Attending Unavailable HELENAMPISAÍAS, ABEL Agustín Primary Care Unavailable Dr. Abel Pablo MD Primary Care Provider [phone] Dr. Abel Pablo MD Referring Provider Dr. Jose Elias MD Attending Provider Dr. Jose Elias MD Referring Provider [phone] Himanshu WREN-CLesly Attending Provider Lesly Downs NP Attending Unavailable Abel Pablo Primary Care Unavailable Helenampisaías, Abel Agustín Primary Care Unavailable JadaJose carpio Attending Unavailable Talampisaías, Abel D Primary Care Unavailable Jada, Jose Referring Unavailable Jose Elias Attending Unavailable Jose Elias Attending Unavailable HelenampAbel mendez Primary Care Unavailable JadaJose carpio Referring Unavailable Talampisaías, Abel D Referring Unavailable Helenampisaías, Abel D Primary Care Unavailable Jada, Jose Attending Unavailable Allergies Allergy Classification Reported Allergen(s) Allergy Type Date of Onset Reaction(s) Facility (20 sources) atorvastatin; Translations: [ATORVASTATIN CALCIUM] Drug Allergy 5 [facility] Work Phone: (20 sources) buPROPion; Translations: [BUPROPION HCL] Drug Allergy 5 [facility] Work Phone: (20 sources) Etodolac; Translations: [ETODOLAC] Drug Allergy 8 Hives [facility] Work Phone: (20 sources) Ticagrelor; Translations: [TICAGRELOR] Drug Allergy 1 Shortness of Breath [facility] Work Phone: (1 source) atorvastatin Drug Allergy 5 Myalgias [facility] (1 source) atorvastatin Drug Allergy 5 [facility] (1 source) Etodolac Drug Allergy 5 [facility] Medications Current Medications Medication Drug Class(es) Dates Sig (Normalized) Sig (Original) [id number] 200 actuat albuterol 0.09 mg/actuat metered dose inhaler (7 sources) beta2-Adrenergic Agonist Start: 04-08-2024 take 2 puff(s) by inhalation every four hours as needed for wheezing albuterol HFA (VENTOLIN HFA) 90 mcg/actuation inhaler Inhale 2 Puffs as instructed every 4 hours as needed for wheezing/shortness of breath. 1 Each 1 04/08/2024 Active amLODIPine 5 mg oral tablet (10 sources) Dihydropyridine Calcium Channel Sandi Start: 02-13-2024 End: 02-17-2025 take 1 tablet by mouth once daily Amlodipine 5 mg tablet Active 5 mg PO DAILY 90 3 February 17, 2025 11:12am cholecalciferol 0.025 mg oral capsule (20 sources) Vitamin D Start: 11-17-2022 take 1 capsule by mouth once daily Cholecalciferol (Vitamin D3) 25 mcg (1,000 unit) capsule Active 2000 U PO DAILY November 17, 2022 10:15am Start: 01-20-[address] [facility] once daily Cholecalciferol, Vitamin D3, 50 mcg (2,000 unit) cap Take 1 capsule by mouth once daily. 01/20/2020 Active Start: 04-01-2019 End: 11-17-2022 take 1 capsule by mouth once daily Cholecalciferol (Vitamin D3) 1,000 unit capsule Discontinued 1000 U PO DAILY April 01, 2019 12:00am November 17, 2022 10:18am Comment on above: Take 1 capsule by mo [facility] once daily. 30 actuat fluticasone furoate 0.1 mg/actuat / umeclidinium 0.0625 mg/actuat / vilanterol 0.025 mg/actuat dry powder inhaler (8 sources) Anticholinergic, Corticosteroid, beta2-Adrenergic Agonist Start: 4 End: 5 take 1 puff(s) by inhalation once daily fluticasone-umeclid in-vilanter (TRELEGY ELLIPTA) 100-62.5-25 mcg inhalation powder Indications: Chronic obstructive pulmonary disease, unspecified COPD type (HCC) Inhale 1 puff as instructed once daily. 1 each 01/27/2025 Active furosemide 20 mg oral tablet (20 sources) Loop Diuretic Start: 9 End: take 1 tablet by mouth once daily as needed for edema furosemide (LASIX) 20 mg tablet Take 1 tablet by mouth once daily as needed (fluid retention). ([facility]) 01/27/2025 Active Start: 02-27-2019 End: 02-27-2019 take 1 tablet by mouth once daily Furosemide 40 mg tablet Discontinued 40 mg PO DAILY 90 February 27, 2019 12:00am February 27, 2019 11:42am Comment on above: Take 1 tablet by mer[place] once daily. ([facility]) Take 1 tablet by merissa th once daily as needed (fluid retention). ([facility]) metoprolol tartrate 25 mg oral tablet (20 sources) beta-Adrenergic Sandi Start: 03-10-2024 Metoprolol Tartrate 25 mg tablet Active 12.5 mg PO TWICE A DAY 90 March 10, 2024 9:34am Start: 03-28-2021 take 0.5 tablet by m outh twice daily metoprolol succinate ER (TOPROL XL) 25 mg 24 hr tablet Take 0.5 tablets by mouth twice daily. ([facility]) 1 tablet 03/28/2021 Active Start: 08-08-2018 End: 03-10-2024 Metoprolol Tartrate 25 mg ta blet Discontinued 0 .ROUTE .COMPLEX 45 3 November 19, 2023 2:37pm March 10, 2024 9:34am Take 1/2 (one-half) of a tablet twice a day. Comment on above: Take 0.5 tablets by mouth twice daily. ([facility]) Multivitamin 1 EACH tablet (1 source) Start: 07-04-2018 Multivitamin 1 EACH tablet Active 1 {tbl} PO DAILY July 04, 2018 1:00am MULTIVITAMIN ORAL (20 sources) Start: 07-04-2018 MULTIVITAMIN ORAL DAILY 07/04/2018 Active Start: 07-04-2018 MULTIVITAMIN O RAL DAILY 0 07/04/2018 Active Comment on above: DAILY nicotine 2 mg oral lozenge (10 sources) Cholinergic Nicotinic Agonist Start: 4 Nicotine Polacrilex [address] 1 Lozenge between cheek and gum as needed. 72 Lozenge 2 12/31/2023 Active potassium chloride 10 meq extended release oral tablet (20 sources) Start: 1 End: 5 take 1 tablet by mouth once daily at breakfast potassium chloride (KLOR-CON 10) 10 mEq tablet Take 1 tablet by mouth daily with breakfast. ([facility]) 01/27/2025 Active Start: 09-18-2019 End: 09-28-2020 take 1 tablet by mouth once daily Potassium Chloride 10 mEq tablet extended release Discontinued 10 meq PO DAILY September 18, 2019 1:00am September 28, 2020 11:15am Comment on above: Take 1 tablet by merissa th daily with breakfast. ([facility]) rosuvastatin calcium 20 mg oral tablet (20 sources) HMG-CoA Reductase Inhibitor Start: End: 4 take 1 tablet by mouth once daily Rosuvastatin 20 mg tablet Active 20 mg PO DAILY 19 07March 05, 2024 7:59am Start: 09-18-2019 End: 09-28-2020 take 1 tablet by mouth once daily Rosuvastatin 10 mg tablet Discontinued 10 mg PO DAILY 90 3 September 28, 2020 11:21am September 28, 2020 5:05pm Start: 11-13-2018 End: 09-18-2019 take 1 tablet by mouth once daily Rosuvastatin (Crestor) 5 mg tablet Discontinued 5 mg PO DAILY 30 November 13, 2018 12:00am September 18, 2019 10:09am Start: 07-04-2018 End: 07-06-2018 Rosuvastatin 20 MG tablet Discontinued 1 {tbl} PO AT BEDTIME July 04, 2018 1:00am July 06, 2018 9:00am take 4 tablets by mo [facility] once daily rosuvastatin (CRESTOR) 5 mg tablet Take 20 mg by mouth once daily. Active Comment on above: Take 20 mg by mouth once daily. tadalafil 20 mg oral tablet (15 sources) Phosphodiesterase 5 Inhibitor Start: 12-26-19 take 1 tablet by mouth once daily Tadalafil (CIALIS) 20 mg tab(s) Indications: Erectile dysfunction, unspecified erectile dysfunction type Take 1 tablet by mouth once daily. 5 tablet 11 12/25/2022 Active Comment on above: Take 1 tablet by [place] once daily. Completed/Discontinued Medications Medication Drug Class(es) Dates Sig (Normalized) Sig (Original) acetaminophen 325 mg / HYDROcodone bitartrate 5 mg oral tablet (20 sources) Opioid Agonist Start: 02-09-2024 End: 04-04-2025 HYDROcodone-acetami nophen (NORCO) 5-325 mg per tablet Indications: DDD (degenerative disc disease), lumbar , Lumbar stenosis with neurogenic claudication , Chronic bilateral low back pain with bilateral sciatica Take 2 tablets by mouth two times a day. May also take 1 tablet once daily as needed (breakthrough pain (some days needs 5 pills instead of 4)). Do all this for 30 days. Patient should start on January 04, 2025. 140 tablet 01/04/2025 01/27/2025 Discontinued Start: 02-05-2024 End: 01-10-2024 HYDROcodone-acetaminophen (N ORCO) 5-325 mg per tablet Indications: DDD (degenerative disc disease), lumbar , Chronic bilateral low back pain with bilateral sciatica , Lumbar stenosis with neurogenic claudication Take 2 tablets by mouth two times a day. May also take 1 tablet once daily as needed (breakthrough pain (some days needs 5 pills instead of 4)). Do all this for 30 days. Do not start before February 05, 2024. 140 tablet 0 02/05/2024 01/10/2024 Discontinued Start: 08-22-2022 End: 04-08-2024 Hydrocodone-Acetaminophen 5- 325 mg tablet Active 2 {tbl} PO TWICE A DAY 0 November 17, 2022 12:00am Start: 08-22-2022 End: 06-29-2022 HYDROcodone-acetaminophen (N ORCO) 5-325 mg per tablet Indications: DDD (degenerative disc disease), lumbar , Chronic bilateral low back pain with bilateral sciatica , Lumbar stenosis with neurogenic claudication Take 2 tablets by mouth twice daily. May take 1 extra daily as needed for breakthrough pain Do not start before August 22, 2022. 120 tablet 0 08/22/2022 06/29/2022 Discontinued Start: 08-22-2022 End: 06-29-2022 HYDROcodone-acetaminophen (N ORCO) 5-325 mg per tablet Indications: DDD (degenerative disc disease), lumbar , Chronic bilateral low back pain with bilateral sciatica , Lumbar stenosis with neurogenic claudication Take 2 tablets by mouth twice daily. May take 1 extra daily as needed for breakthrough pain Do not start before August 22, 2022. 120 tablet 0 08/22/2022 06/29/2022 Discontinued Start: 08-22-2022 HYDROcodone-ac etaminophen (NORCO) 5-325 mg per tablet Indications: DDD (degenerative disc disease), lumbar , Chronic bilateral low back pain with bilateral sciatica , Lumbar stenosis with neurogenic claudication Take 2 tablets by mouth twice daily. May take 1 extra daily as needed for breakthrough pain Do not start before August 22, 2022. 140 tablet 0 08/22/2022 Active Start: 07-23-2022 End: 09-20-2022 HYDROcodone-acetaminophen (N ORCO) 5-325 mg per tablet Indications: DDD (degenerative disc disease), lumbar , Chronic bilateral low back pain with bilateral sciatica , Lumbar stenosis with neurogenic claudication Take 2 tablets by mouth twice daily. May take 1 extra daily as needed for breakthrough pain Do not start before July 23, 2022. 140 tablet 0 07/23/2022 09/20/2022 Discontinued Start: 07-23-2022 End: 06-29-2022 HYDROcodone-acetaminophen (N ORCO) 5-325 mg per tablet Indications: DDD (degenerative disc disease), lumbar , Chronic bilateral low back pain with bilateral sciatica , Lumbar stenosis with neurogenic claudication Take 2 tablets by mouth twice daily. May take 1 extra daily as needed for breakthrough pain Do not start before July 23, 2022. 120 tablet 0 07/23/2022 06/29/2022 Discontinued Start: 07-23-2022 End: 06-29-2022 HYDROcodone-acetaminophen (N ORCO) 5-325 mg per tablet Indications: DDD (degenerative disc disease), lumbar , Chronic bilateral low back pain with bilateral sciatica , Lumbar stenosis with neurogenic claudication Take 2 tablets by mouth twice daily. May take 1 extra daily as needed for breakthrough pain Do not start before July 23, 2022. 120 tablet 0 07/23/2022 06/29/2022 Discontinued Start: 07-23-2022 HYDROcodone-ac etaminophen (NORCO) 5-325 mg per tablet Indications: DDD (degenerative disc disease), lumbar , Chronic bilateral low back pain with bilateral sciatica , Lumbar stenosis with neurogenic claudication Take 2 tablets by mouth twice daily. May take 1 extra daily as needed for breakthrough pain Do not start before July 23, 2022. 140 tablet 0 07/23/2022 Active Start: 05-27-2021 End: 09-20-2022 take 2 tablets by mouth twice daily as needed for pain, then take 1 tablet by mouth once daily as needed for pain HYDROcodone-acetaminophen (NORCO) 5-325 mg per tablet Indications: DDD (degenerative disc disease), lumbar , Chronic bilateral low back pain with bilateral sciatica , Lumbar stenosis with neurogenic claudication Take 2 tablets by mouth twice daily. May take 1 extra daily as needed for breakthrough pain 140 tablet 0 06/23/2022 09/20/2022 Discontinued Comment on above: Take 2 tablets by mo uth twice daily as needed for pain for up to 30 days. Do not start before October 26, 2021. Take 2 tablets by mo uth twice daily as needed for pain for up to 30 days. Do not start before November 25, 2021. Take 2 tablets by mo uth twice daily as needed for pain for up to 30 days. Do not start before December 25, 2021. Take 2 tablets by mo uth twice daily as needed for pain for up to 30 days. Do not start before August 26, 2021. Take 2 tablets by mo uth twice daily as needed for pain for up to 30 days. Take 2 tablets by mo uth twice daily as needed for pain for up to 30 days. Do not start before September 25, 2021. Take 2 tablets by mo uth twice daily. May take 1 extra daily as needed for breakthrough pain Take 2 tablets by mo uth twice daily for 30 days. May take 1 extra daily as needed for breakthrough pain Do not start before May 26, 2022. Take 2 tablets by mo uth twice daily for 30 days. May take 1 extra daily as needed for breakthrough pain Take 2 tablets by mo uth twice daily for 30 days. May take 1 extra daily as needed for breakthrough pain Do not start before April 26, 2022. Take 2 tablets by mo uth twice daily. May take 1 extra daily as needed for breakthrough pain Do not start before July 23, 2022. Take 2 tablets by mo uth twice daily. May take 1 extra daily as needed for breakthrough pain Do not start before August 22, 2022. Take 2 tablets by mo uth twice daily. May take 1 extra daily as needed for breakthrough pain Do not start before September 21, 2022. Take 2 tablets by mo uth twice daily for 30 days. May take 1 extra daily as needed for breakthrough pain Do not start before October 21, 2022. Take 2 tablets by mo uth twice daily for 30 days. May take 1 extra daily as needed for breakthrough pain Do not start before November 20, 2022. Take 2 tablets by mo uth twice daily for 30 days. May take 1 extra daily as needed for breakthrough pain Do not start before December 20, 2022. Take 2 tablets by mo uth twice daily. May also take 1 tablet once daily as needed (breakthrough pain (some days needs 5 pills instead of 4)). Do all this for 30 days. Do not start before January 14, 2023. Take 2 tablets by mo uth twice daily. May also take 1 tablet once daily as needed (breakthrough pain (some days needs 5 pills instead of 4)). Do all this for 30 days. Do not start before February 13, 2023. Take 2 tablets by mo uth twice daily. May also take 1 tablet once daily as needed (breakthrough pain (some days needs 5 pills instead of 4)). Do all this for 30 days. Do not start before March 15, 2023. Take 2 tablets by mo uth twice daily. May also take 1 tablet once daily as needed (breakthrough pain (some days needs 5 pills instead of 4)). Do all this for 30 days. Do not start before April 11, 2023. Take 2 tablets by mo uth twice daily. May also take 1 tablet once daily as needed (breakthrough pain (some days needs 5 pills instead of 4)). Do all this for 30 days. Do not start before May 11, 2023. Take 2 tablets by mo uth twice daily. May also take 1 tablet once daily as needed (breakthrough pain (some days needs 5 pills instead of 4)). Do all this for 30 days. Do not start before June 08, 2023. Take 2 tablets by mo uth two times a day. May also take 1 tablet once daily as needed (breakthrough pain (some days needs 5 pills instead of 4)). Do all this for 30 days. Do not start before September 08, 2023. Take 2 tablets by mo uth two times a day. May also take 1 tablet once daily as needed (breakthrough pain (some days needs 5 pills instead of 4)). Do all this for 30 days. Do not start before August 09, 2023. Take 2 tablets by mo uth two times a day. May also take 1 tablet once daily as needed (breakthrough pain (some days needs 5 pills instead of 4)). Do all this for 30 days. Take 2 tablets by mo uth two times a day. May also take 1 tablet once daily as needed (breakthrough pain (some days needs 5 pills instead of 4)). Do all this for 30 days. Do not start before October 08, 2023. Take 2 tablets by mo uth two times a day. May also take 1 tablet once daily as needed (breakthrough pain (some days needs 5 pills instead of 4)). Do all this for 30 days. Do not start before November 07, 2023. Take 2 tablets by mo uth two times a day. May also take 1 tablet once daily as needed (breakthrough pain (some days needs 5 pills instead of 4)). Do all this for 30 days. Do not start before December 07, 2023. acetaminophen 325 mg / oxyCODONE hydrochloride 5 mg oral tablet (2 sources) Opioid Agonist Start: 01-14-2021 End: 09-29-2021 Oxycodone-Acetaminophen (Percocet) 5-325 mg tablet Discontinued 1 {tbl} PO Q4H as needed for pain 20 7 0 January 14, 2021 September 29, 2021 4:57pm Urolithiasis Urinary calculus, unspecified Start: 01-05-2021 End: 09-29-2021 Oxycodone-Acetaminophen (End ocet) 5-325 mg tablet Discontinued 1 {tbl} PO EVERY 6 HOURS as needed for pain 12 3 0 January 05, 2021 September 29, 2021 4:57pm Urolithiasis Urinary calculus, unspecified aspirin 81 mg delayed release oral tablet (20 sources) Platelet Aggregation Inhibitor, Nonsteroidal Anti-inflammatory Drug Start: 07-06-2018 End: 10-14-2021 take 1 tablet by mouth once daily Aspirin 81 mg tablet,delayed release (DR/EC) Discontinued 81 mg PO DAILY@0800 90 3 September 28, 2020 11:21am October 14, 2021 3:49pm Comment on above: Take 81 mg by mouth once daily. atorvastatin 40 mg oral tablet (2 sources) HMG-CoA Reductase Inhibitor Start: 07-06-2018 End: 11-13-2018 take 1 tablet by mouth at bedtime Atorvastatin 40 mg tablet Discontinued 40 mg PO AT BEDTIME 90 July 16, 2018 12:15pm November 13, 2018 1:43pm carvedilol 3.125 mg oral tablet (2 sources) alpha-Adrenergic Sandi, beta-Adrenergic Sandi Start: 07-06-2018 End: 08-08-2018 take 1 tablet by mouth twice daily Carvedilol 3.125 mg tablet Discontinued 3.125 mg PO TWICE A DAY 180 July 16, 2018 12:16pm August 08, 2018 1:14pm ciprofloxacin 500 mg oral tablet (1 source) Quinolone Antimicrobial Start: 01-14-2021 End: 09-29-2021 take 1 tablet by mouth twice daily Ciprofloxacin Hcl (Cipro) 500 mg tablet Discontinued 500 mg PO TWICE A DAY 14 January 14, 2021 12:00am September 29, 2021 4:56pm clopidogrel 75 mg oral tablet (20 sources) P2Y12 Platelet Inhibitor Start: 05-12-2019 clopidogrel (PLAVIX) 75 mg tablet TAKE 4 TABLETS tonight only, then TAKE 1 TABLET EVERY MORNING 11 05/12/2019 Active Start: 08-08-2018 End: 12-01-2024 take 1 tablet by mouth once daily Clopidogrel (Plavix) 75 mg tablet Discontinued 75 mg PO DAILY 90 3 November 12, 2023 10:02am December 01, 2024 8:09am Comment on above: TAKE 4 TABLETS tonig ht only, then TAKE 1 TABLET EVERY MORNING Take 75 mg by mouth once daily. Bwjsseac-Zhv-Sfyqo-H [id number] (Ywfcec-Fzbae-Bjq (With Antiox)) 500-500-66.7 mg tablet (1 source) Start: 09-18-19 End: 09-28-19 21 Xxoqxqte-Hxg-Uchjn-H [id number] (Pqzffz-Rwmrq-Dby (With Antiox)) 500-500-66.7 mg tablet Discontinued {tbl} PO September 18, 2019 1:00am September 28, 2020 11:15am hydrOXYzine pamoate 25 mg oral capsule (2 sources) Antihistamine Start: 09-18-19 End: 09-28-19 take 1 capsule by mouth three times daily as needed Hydroxyzine Pamoate 25 mg capsule Discontinued 25 mg PO THREE TIMES A DAY as needed September 18, 2019 1:00am September 28, 2020 11:15am Start: 07-16-2018 End: 02-27-2019 take 1 capsule by mouth three to four times daily as needed Hydroxyzine Pamoate (Vistaril) 25 mg capsule Discontinued 25 mg PO 3 to 4 times per day as needed for Itching July 16, 2018 1:00am February 27, 2019 11:26am LORazepam 1 mg oral tablet (7 sources) Benzodiazepine Start: 07-06-2018 End: 11-17-2022 take 0.5-1 tablets by mouth once daily as needed for anxiety LORazepam (ATIVAN) 1 mg tablet Indications: Panic attacks Take 0.5-1 tablets by mouth once daily as needed for anxiety for up to 60 days. May fill today 15 tablet 1 11/21/2021 06/23/2022 Discontinued Comment on above: Take 0.5-1 tablets b y mouth once daily as needed for anxiety for up to 60 days. May fill today Take 0.5-1 tablets b y mouth once daily as needed for anxiety for up to 60 days. May fill today Do not start before August 21, 2021. losartan potassium 25 mg oral tablet (20 sources) Angiotensin 2 Receptor Sandi Start: 03-13-2019 End: 11-17-2022 take 1 tablet by mouth once daily Losartan 25 mg tablet Discontinued 25 mg PO DAILY 90 3 March 15, 2020 11:41am November 17, 2022 10:18am Comment on above: Take 25 mg by mouth once daily. naproxen 500 mg oral tablet (1 source) Nonsteroidal Anti-inflammatory Drug Start: 07-04-2018 End: 07-16-2018 Naproxen 500 MG tablet Discontinued 1 {tbl} PO TWICE A DAY July 04, 2018 1:00am July 16, 2018 12:04pm Tiotropium-Olodat vicky (1 source) Anticholinergic, beta2-Adrenergic Agonist Start: 09-17-2018 End: 09-18-2019 Tiotropium-Olodater ol (Stiolto Respimat) 2.5-2.5 mcg/actuation mist Discontinued 2 NMA INHALATION Q24H 4 8 September 17, 2018 1:00am September 18, 2019 10:00am Chronic obstructive pulmonary disease, unspecified administer at approximately same time(s) each day predniSONE 10 mg oral tablet (1 source) Start: 09-17-2018 End: 02-27-2019 take 4 tablets by mouth once daily Prednisone 10 mg tablet Discontinued 10 mg PO DAILY 20 0 September 17, 2018 1:00am February 27, 2019 11:26am Chronic obstructive pulmonary disease, unspecified Take 4 tablets daily for 5 days semaglutide (OZEMPIC) 0.25 mg or 0.5 mg (2 mg/3 mL) pen (3 sources) Start: 03-23-2023 End: 03-23-2023 semaglutide (OZEMPIC) 0.25 mg or 0.5 mg (2 mg/3 mL) pen Indications: Primary hypertension , Class 1 obesity due to excess calories with serious comorbidity and body mass index (BMI) of 33.0 to 33.9 in adult Inject 0.25 mg subcutaneously one time a week. 1 Each 1 03/23/2023 03/23/2023 Discontinued (Not on Formulary) Start: 03-23-2023 semaglutide (O ZEMPIC) 0.25 mg or 0.5 mg (2 mg/3 mL) pen Indications: Primary hypertension , Class 1 obesity due to excess calories with serious comorbidity and body mass index (BMI) of 33.0 to 33.9 in adult Inject 0.25 mg subcutaneously one time a week. 1 Each 1 03/23/2023 Active Comment on above: Inject 0.25 mg subcu taneously one time a week. tamsulosin hydrochloride 0.4 mg oral capsule (1 source) alpha-Adrenergic Sandi Start: 01-06-20 End: 09-29-19 take 1 capsule by mouth once daily Tamsulosin (Flomax) 0.4 mg capsule Discontinued 0.4 mg PO DAILY 10 January 05, 2021 12:00am September 29, 2021 4:57pm ticagrelor 90 mg oral tablet (2 sources) Start: 07-06-20 18 End: 08-08-20 18 take 1 tablet by mouth twice daily Ticagrelor 90 mg tablet Discontinued 90 mg PO TWICE A DAY 180 July 16, 2018 12:16pm August 08, 2018 1:13pm Problems Active Problems Problem Classification Problem Date Documented Da te Episodic/Chronic Acute myocardial infarction (2 sources) Acute myocardial infarction of inferior wall; Translations: [ST elevation (STEMI) myocardial infarction involving other coronary artery of inferior wall] Onset: 07-04-2018 09-27-2020 Chronic Anxiety disorders (20 sources) Panic attack; Translations: [Panic disorder [episodic paroxysmal anxiety]] Onset: 05-27-2021 Chronic Calculus of urinary tract (20 sources) Urolithiasis ; Translations: [Urinary calculus, unspecified] 06-07-2005 Episodic Chronic obstructive pulmonary disease and bronchiectasis (5 sources) Chronic obstructive lung disease; Translations: [Chronic obstructive pulmonary disease, unspecified] Onset: 01-27-2025 04-08-2024 Chronic Comment on above: FEV1 75% Coronary atherosclerosis and other heart disease (20 sources) History of non-ST segment elevation myocardial infarction; Translations: [Old myocardial infarction] Onset: 07-04-2018 09-16-2018 Chronic Coronary atherosclerosis and other heart disease (2 sources) Presence of coronary angioplasty implant and graft; Translations: [S/P coronary artery stent placement] Onset: 09-16-2018 Episodic Diabetes mellitus without complication (4 sources) Impaired fasting glycemia; Translations: [Impaired fasting glucose] Episodic Disorders of lipid metabolism (20 sources) Mixed hyperlipidemia; Translations: [Mixed hyperlipidemia] Onset: 02-19-2006 07-12-2015 Chronic Essential hypertension (10 sources) Essential hypertension; Translations: [Essential (primary) hypertension] Onset: 04-08-2024 Chronic Gastroduodenal ulcer (except hemorrhage) (20 sources) Duodenal ulcer caused by Helicobacter pylori; Translations: [Duodenal ulcer, unspecified as acute or chronic, without hemorrhage or perforation] Onset: 06-03-2010 06-03-2010 Chronic Immunizations and screening for infectious disease (7 sources) Vaccination needed; Translations: [Encounter for immunization] Onset: 01-27-2025 Episodic Malaise and fatigue (1 source) Fatigue; Translations: [Other fatigue] 09-28-2020 Episodic Other aftercare (10 sources) Patient encounter status; Translations: [Other care home (current) drug therapy] Episodic Other aftercare (1 source) Taking high risk medication; Translations: [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] 10-06-2024 Episodic Other circulatory disease (20 sources) Raynaud's disease; Translations: [Raynaud's syndrome without gangrene] 06-07-2005 Chronic Other lower respiratory disease (1 source) Dyspnea on exertion; Translations: [Other forms of dyspnea] 09-27-2020 Episodic Other male genital disorders (20 sources) Male erectile dysfunction, unspecified; Translations: [Impotence of organic origin] Onset: 05-09-2013 05-09-2013 Chronic Other nervous system disorders (20 sources) Meralgia paresthetica of left leg; Translations: [Meralgia paresthetica, left lower limb] Onset: 05-08-2012 05-08-2012 Chronic Other nervous system disorders (1 source) Chronic low back pain; Translations: [Other chronic pain] 01-27-2025 Chronic Other nervous system disorders (2 sources) Other chronic pain; Translations: [Chronic bilateral low back pain with right-sided sciatica] Onset: 05-26-2014 Chronic Other non-traumatic joint disorders (1 source) Hip pain; Translations: [Pain in left hip] 07-11-2024 Episodic Other nutritional; endocrine; and metabolic disorders (11 sources) Obesity; Translations: [Other obesity due to excess calories] Onset: 03-08-2018 Chronic Other nutritional; endocrine; and metabolic disorders (16 sources) Obesity caused by energy imbalance; Translations: [Other obesity due to excess calories] Onset: 03-08-2018 03-23-2023 Chronic Other nutritional; endocrine; and metabolic disorders (1 source) Other obesity due to excess calories; Translations: [Class 1 obesity due to excess calories with body mass index (BMI) of 34.0 to 34.9 in adult, unspecified whether serious comorbidity present] Onset: 01-27-2025 Chronic Other nutritional; endocrine; and metabolic disorders (1 source) Body mass index (BMI) 34.0-34.9, adult; Translations: [Class 1 obesity due to excess calories with body mass index (BMI) of 34.0 to 34.9 in adult, unspecified whether serious comorbidity present] Onset: 01-27-2025 Chronic Residual codes; unclassified (2 sources) Bilateral lower limb edema; Translations: [Localized edema] Episodic Residual codes; unclassified (1 source) Tobacco user; Translations: [Tobacco use] Episodic Spondylosis; intervertebral disc disorders; other back problems (20 sources) Degeneration of lumbar intervertebral disc; Translations: [Other intervertebral disc degeneration, lumbar region] Onset: 05-26-2014 Chronic Spondylosis; intervertebral disc disorders; other back problems (20 sources) Chronic low back pain; Translations: [Lumbago with sciatica, left side] Onset: 05-08-2011 Episodic Substance-related disorders (20 sources) Tobacco user; Translations: [Nicotine dependence, unspecified, uncomplicated] Onset: 08-25-2007 08-25-2007 Chronic Unclassified (1 source) DDD (degenerative disc disease), lumbar; Translations: [DDD (degenerative disc disease), lumbar] Onset: 05-26-2014 Unclassified (1 source) Class 1 obesity due to excess calories with body mass index (BMI) of 34.0 to 34.9 in adult, unspecified whether serious comorbidity present; Translations: [Class 1 obesity due to excess calories with body mass index (BMI) of 34.0 to 34.9 in adult, unspecified whether serious comorbidity present] Onset: 01-27-2025 Past or Other Problems Problem Classification Problem Date Documented Da te Episodic/Chronic Gastrointestinal hemorrhage (20 sources) Hematochezia; Translations: [Melena] Onset: 06-02-2010 06-02-2010 Episodic Hemorrhoids (20 sources) Hemorrhoids; Translations: [Unspecified hemorrhoids] Onset: 04-21-2010 04-21-2010 Episodic Other connective tissue disease (20 sources) Contracture of palmar fascia; Translations: [Palmar fascial fibromatosis [Dupuytren]] Onset: 06-15-2007 06-15-2007 Episodic Other connective tissue disease (20 sources) Tendinitis; Translations: [Enthesopathy, unspecified] Onset: 11-01-2009 11-01-2009 Episodic Other connective tissue disease (20 sources) Pain of bilateral hands; Translations: [Pain in right hand] Onset: 10-13-2016 10-13-2016 Episodic Other non-traumatic joint disorders (1 source) Pain in left hip; Translations: [Pain of left hip] Onset: 07-11-2024 Episodic Other screening for suspected conditions (not mental disorders or infectious disease) (2 sources) Encounter for screening for malignant neoplasm of prostate; Translations: [Encounter for screening for malignant neoplasm of colon] Onset: 04-08-2024 Episodic Residual codes; unclassified (1 source) Localized edema; Translations: [Bilateral lower extremity edema] Onset: 04-08-2024 Episodic Screening and history of mental health and substance abuse codes (1 source) Encounter for screening for depression; Translations: [Screening for depression] Onset: 04-08-2024 Episodic Results Test Name Value Interpretation Reference Range Facility [facility] 02-23-2025 [facility] [address] [place] [id number] Echo Complete 02/23/25 0801 MR#: [id number] Acct: [id number] Name: MOSHE ZIMMERMAN Rep #: [id number] : 1955 70 From: Jose Elias MD Attending Dr: Dr. Jose Elias MD Status: RASHARD ELLER Ordering Dr: Jose Elias MD Date: 02/23/25 Location: [facility] Sex: M C Admitted: Reason For Study Reason For Study: CAD/ASHD Procedure This was a 2D Doppler, Color Flow transthoracic echocardiogram. Exam performed in department. Left Ventricle Normal LV size. The left ventricular ejection fraction is 50 %. Stage 1 diastolic dysfunction. Mild segmental systolic dysfunction (see wall motion). Infero-Basal: Mildly hypokinetic. The rest of the wall segments are normal. Right Ventricle Normal RV size. Normal systolic function. Atria Normal left atrium. Normal right atrium. Mitral Valve Normal mitral valve. Tricuspid Valve Normal tricuspid valve. Aortic Valve Normal aortic valve. Pulmonic Valve Normal pulmonic valve. Great Vessels Normal aortic root. The pulmonary artery is normal size. Inferior vena cava collapse with respiration. Pericardium/Pleural No pericardial effusion. MMode/2D Measurements Calculations LVIDd: 5.6 cm IVSd: 1.0 cm LAV(MOD-bp): 47.1 ml LVIDs: 3.6 cm LVPWd: 1.1 cm LAV(MOD-bp) Indexed: 21.0 ml/m2 FS: 35.0 % LAV(MOD-sp2): 40.0 ml LAV(MOD-sp4): 47.7 ml SV(MOD-sp4): 55.4 ml SV(sp4-el): 57.0 ml LVAd ap4: 34.6 cm2 LVLd ap4: 8.9 cm SI(MOD-sp4): 24.8 ml/m2 EDV(MOD-sp4): 112.9 ml EDV(sp4-el): 114.0 ml LVAs ap4: 22.9 cm2 LVLs ap4: 7.8 cm ESV(MOD-sp4): 57.5 ml ESV(sp4-el): 57.0 ml EF(MOD-sp4): 49.1 % EF(sp4-el): 50.0 % LA A4 area: 17.0 cm2 RA A4 area: 20.5 cm2 Time Measurements MV dec time: 0.26 sec Doppler Measurements Calculations MV E max jolie: 74.6 cm/sec Lat Peak E' Jolie: 15.1 cm/sec Med Peak E' Jolie: 7.6 cm/sec MV A max jolie: 80.7 cm/sec E/E' lat: 5.0 E/E' med: 9.8 MV E/A: 0.92 MV V2 max: 88.5 cm/sec MV P1/2t max jolie: 70.7 cm/sec Ao V2 max: 180.5 cm/sec MV max P.1 mmHg MV P1/2t: 71.0 msec Ao max P.0 mmHg MV V2 mean: 54.2 cm/sec MV dec slope: 291.9 cm/sec2 MV mean P.3 mmHg MVA(P1/2t): 3.1 cm2 MV V2 VTI: 35.0 cm LV V1 max: 102.9 cm/sec PA V2 max: 83.7 cm/sec LV V1 max P.2 mmHg ECHO/Echo Complete Interpretation Summary The left ventricular ejection fraction is 50 %. Normal LV size. Infero-Basal: Mildly hypokinetic Stage 1 diastolic dysfunction. Mild segmental systolic dysfunction (see wall motion). Ordering Physician: Jose Elias Referring Physician: Jose Elias Performed By: Ana Paula Murphy RCS 02/23/25 1240 Date Jose Elias MD CC: Dr. Jose Elias MD; Dr. 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 Jose Elias MD S tatus: REG CLI Ordering Dr: Jose Elias MD Date: 03/13 Location: [facility] Sex: M C Admitted: Reason For Study Reason For Study: CAD/ASHD Procedure This was a 2D Doppler, Color Flow transthoracic echocardiogram. Exam performed in department. Left Ventricle Normal LV size. The left ventricular ejection fraction is 50 %. Stage 1 diastolic dysfunction. Mild segmental systolic dysfunction (see wall motion). Infero-Basal: Mildly hypokinetic. The rest of thewall segments are normal. Right Ventricle Normal RV size. Normal systolic function. Atria Normal left atrium. Normal right atrium. Mitral Valve Normal mitral valve. Tricuspid Valve Normal tricuspid valve. Aortic Valve Normal aortic valve. Pulmonic Valve Normal pulmonic valve. Great Vessels Normal aortic root. The pulmonary artery is normal size. Inferior vena cava collapse with respiration. Pericardium/Pleural No pericardial effusion. MMode/2D Measurements & Calculations LVIDd: 5.6 cm IVSd: 1.0 cm LAV(MOD-bp): 47.1 ml LVIDs: 3.6 cm LVPWd: 1.1 cm LAV(MOD-bp) Indexed: 21.0 ml/m2 FS: 35.0 % LAV(MOD-sp2): 40.0 ml LAV(MOD-sp4): 47.7 ml SV(MOD-sp4): 55.4 ml SV(sp4-el): 57.0 ml LVAd ap4: 34.6 cm2 LVLd ap4: 8.9 cm SI(MOD-sp4): 24.8 ml/m2 EDV(MOD-sp4): 112.9 ml EDV(sp4-el): 114.0 ml LVAs ap4: 22.9 cm2 LVLs ap4: 7.8 cm ESV(MOD-sp4): 57.5 ml ESV(sp4-el): 57.0 ml EF(MOD-sp4): 49.1 % EF(sp4-el): 50.0 % LA A4 area: 17.0 cm2 RA A4 area: 20.5 cm2 Time Measurements MV dec time: 0.26 sec Doppler Measurements & Calculations MV E max jolie: 74.6 cm/sec Lat Peak E' Jolie: 15.1 cm/sec Med Peak E' Jolie: 7.6 cm/sec MV A max jolie: 80.7 cm/sec E/E' lat: 5.0 E/E' med: 9.8 MV E/A: 0.92 MV V2 max: 88.5 cm/sec MV P1/2t max jolie: 70.7 cm/sec Ao V2 max: 180.5 cm/sec MV max P.1 mmHg MV P1/2t: 71.0 msec Ao max P.0 mmHg MV V2 mean: 54.2 cm/sec MV dec slope: 291.9 cm/sec2 MV mean P.3 mmHg MVA(P1/2t): 3.1 cm2 MV V2 VTI: 35.0 cm LV V1 max: 102.9 cm/sec PA V2 max: 83.7 cm/sec LV V1 max P.2 mmHg ECHO/Echo Complete Interpretation Summary The left ventricular ejection fraction is 50 %. Normal LV size. Infero-Basal: Mildly hypokinetic Stage 1 diastolic dysfunction. Mild segmental systolic dysfunction (see wall motion). Ordering Physician: Jose Elias Referring Physician: Jose Elias Performed By: Ana Paula Murphy RCS 02/23/25 1240 Date _ Jose Elias MD CC: Dr. Jose Elias MD; Dr. 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 Subjective Moshe Zimmerman is a 69 year old male. Patient presents with: Follow Up: 3 months Pain: RT hip x 2 months Moshe Zimmerman is a 69-year-old male with a history of CAD, presenting for a 3-month follow-up visit. Moshe reports right-sided hip pain that occurs primarily at night when lying down, radiating from the hip to the outside of the foot. The pain is not associated with tenderness upon palpation and is not present during the day. He also experiences pain after walking approximately 25 yards, necessitating a brief rest. He denies any current back pain and has no symptoms on the left side. He has a history of similar symptoms, which were previously alleviated by regular exercises to maintain flexibility, but he has since discontinued these exercises. Moshe has gained approximately 15 lbs, increasing from 229 lbs to 242 lbs, which he attributes to increased snack consumption brought into the house by his brother. He reports difficulty putting on shoes due to the weight gain. He expresses interest in resuming chair exercises to improve flexibility. Moshe is currently taking hydrocodone for pain management, which he reports is effective. He also uses Trelegy for respiratory issues but has not been using it consistently due to cost. He reports nocturnal wheezing and has a history of smoking, currently smoking more than 1 pack per day, increased from 1/4 pack per day since July of last year. He attributes the increase in smoking to having more time on his hands and watching more TV. He expresses a desire to reduce smoking and plans to return to work a couple of days a week to stay busy. Moshe is also taking Lasix 20 mg as needed for lower extremity edema, which he reports occurs when he is idle and not active. He takes potassium daily with breakfast. He has a stress test scheduled for the of next month, which he reports is a routine screening as it has been 4 years since his last test. He denies any recent dyspnea on exertion, chest pain, or pressure. He has advanced directives in place, including a living will and a healthcare power of residential therapist, with Jia Zimmerman designated as the person to contact if he is unconscious. 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 albuterol HFA (VENTOLIN HFA) 90 mcg/actuation inhaler Inhale 2 Puffs as instructed every 4 hours as needed for wheezing/shortness of breath. Tadalafil (CIALIS) 20 mg tab(s) Take 1 tablet by mouth once daily. metoprolol succinate ER (TOPROL XL) 25 mg 24 hr tablet Take 0.5 tablets by mouth twice daily. ([facility]) Cholecalciferol, Vitamin D3, 50 mcg (2,000 unit) cap Take 1 capsule by mouth once daily. losartan (COZAAR) 25 mg tablet Take 25 mg by mouth once daily. clopidogrel (PLAVIX) 75 mg tablet Take 75 mg by mouth once daily. rosuvastatin (CRESTOR) 5 mg tablet Take 20 mg by mouth once daily. aspirin, enteric coated (ASPIRIN, ENTERIC COATED) 81 mg EC tablet Take 81 mg by mouth once daily. MULTIVITAMIN ORAL DAILY [START ON 2025] HYDROcodone-acetaminop hen (NORCO) 5-325 mg per tablet Take 2 tablets by mouth two times a day. May also take 1 tablet once daily as needed (breakthrough pain (some days needs 5 pills instead of 4)). Do all this for 30 days. Patient should start on 2025. [START ON 03/05/2025] HYDROcodone-acetaminop hen (NORCO) 5-325 mg per tablet Take 2 tablets by mouth two times a day. May also take 1 tablet once daily as needed (breakthrough pain (some days needs 5 pills instead of 4)). Do all this for 30 days. Patient should start on March 05, 2025. fluticasone-umeclidin- vilanter (TRELEGY ELLIPTA) 100-62.5-25 mcg inhalation powder Inhale 1 puff as instructed once daily. furosemide (LASIX) 20 mg tablet Take 1 tablet by mouth once daily as needed (fluid retention). ([facility]) potassium chloride (KLOR-CON 10) 10 mEq tablet Take 1 tablet by mouth daily with breakfast. ([facility]) Nicotine Polacrilex [address] 1 Lozenge between cheek and gum as neede (more content not included)... Normal [facility] Cardiology Visit Reporton Cardiology Visit Report [facility] [address] [place] [address] OFFICE VISIT Date of Service: 01/08/25 MR#: [id number] Acct: [id number] Name: MOSHE ZIMMERMAN Rep #: [id number] : 1955 Provider: Dr. Jose Elias MD Age/Sex: 69/M Location: [facility] Status: Signed HPI HPI History of Present Illness Details: MOSHE ZIMMERMAN, is a 69 nondiabetic M with hypertension, hypercholesterolemia, former smoker of approximately 48 pack years and quit in May 2018, who presents to the office today for follow-up of acute inferior wall myocardial infarction. The patient sustained an ST elevation myocardial infarction in June 2018 and had stenting to the right coronary artery successfully. He came for follow-up evaluation and was noted to have a significant LAD lesion for which he underwent angioplasty and stenting with a 2.25x20 Promus Synergy stent. He also had a mid circumflex artery FFR which was 0.81 and he underwent a stent to this vessel. He denies chest, arm, jaw, or neck discomfort. He denies palpitations. . He denies claudication. He states shortness of breath with activity that he feels to be worse since last office visit. Such activity include going up multiple flights of steps. He denies shortness of breath at rest, orthopnea, or PND. He denies chronic cough. He denies significant, sudden weight gain. He denies lightheadedness, dizziness, near-syncope, or syncope. He denies blood in urine, blood in stool, or epistaxis. He denies fever with chills. He states myalgia in which his legs are sensitive to touch. He continues with weakness and fatigue. His exercise level has remained stable. 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 Accompanied by: Self Is patient in pain?: No Allergies etodolac Allergy (Severe, Verified 01/08/25 12:48) Hives atorvastatin (From Lipitor) Adverse Reaction (Severe, Verified 01/08/25 12:48) Myalgias Medications ???Medication ???Instructions ???Recorded ???Confirmed ???Type multivitamin 1 tab PO DAILY 07/04/18 01/08/25 H istory aspirin 81 mg tablet,delayed 81 mg PO DAILY@0800 #90 tabs 10/1401/08/25 Rx release cholecalciferol (vitamin D3) 25 2,000 unit PO DAILY 11/17/2201/08 History mcg (1,000 unit) capsule hydrocodone-acetaminop hen 5-325mg 2 tab PO BID 11/17/22 01/08/25 Hi story 5mg-325mg amlodipine 5 mg tablet 5 mg PO DAILY #90 tabs 02/13/24 Rx rosuvastatin 20 mg tablet 20 mg PO DAILY #30 TABLETS 4 01/08/25 Rx metoprolol tartrate 25 mg tablet 12.5 mg (1/2 x 25 mg) PO BID #90 0 03/10/24 01/08/25 Rx TABLETS clopidogrel 75 mg tablet (Plavix) 75 mg PO DAILY #90 tabs 12/01/24 01/08/25 Rx Have you fallen in the past year?: No PFSH Medical History Acute inferior myocardial infarction (07/04/18) Anxiety Arthritis Atherosclerosis of coronary artery of [place] heart without angina pectoris Back pain Dyspnea on exertion Essential (primary) hypertension History of Helicobacter pylori infection History of inferior wall myocardial infarction (07/04/18) History of irregular heartbeat History of renal disease History of renal stone History of ST elevation myocardial infarction (STEMI) (07/04/18) Hyperlipidemia Leg cramps Loss of hearing Nicotine dependence Obesity Restless legs Smoker Stage 1 mild COPD by GOLD classification Urolithiasis Wears dentures Wears glasses Wears partial dentures Surgical History H/O hemorrhoidectomy History of back surgery History of cardiac catheterization History of coronary artery stent placement (03/12/19) Hx of colonoscopy Hx of lithotripsy (12/2020) Family History Father Heart disease Mother Cancer Social History Smoking Status: Current every day smoker tobacco type: cigarettes and smokeless tobacco alcohol intake: current alcohol intake frequency: holidays/special occasions only substance use type: does not use caffeine: Yes Type: coffee Number of servings: 3 ROS Const Const: Positive for weakness (BLE - to review with PCP); Negative for fatigue, headache(s), daytime sleepiness or difficulty sleeping ENT ENT: Negative for headache(s), dizziness or Nosebleed/epistaxis Cardio Chest Pain: No Palpitations: No [place] (more content not included)... 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 Chronic low back pain secondary to DDD and lumbar stenosis. Taking hydrocodone 2 tabs twice a day, occasionally takes 1 tab extra for breakthrough pain. Typically needs to takes this a few times a week in the middle of the night. PAIN ASSESSMENT DOCUMENTATION TOOL (PADT TM) Analgesia: 0 is no pain. 10 is as bad as it can be. 1. What was your pain level on average during the past week? 4 2. What was your pain level at its worst during the past week? 8 3. Is the amount of pain relief you are now obtaining from your current pain reliever(s) enough to make a real difference in your life? yes Activities of Daily Living since the patient's last assessment 1. Physical functioning. same 2. Mood. same 3. Sleep patterns. same Adverse Events 1. Is patient experiencing any side effects from current pain reliever? a) Nausea None b) Vomiting None c) Constipation None d) Itching None e) Mental cloudiness None f) Sweating None g) Fatigue None h) Drowsiness None HTN-Medication changes:No Taking all medications as prescribed: Yes Side effects: No Home BP's: No Denies: headache, chest pain, palpitations, dyspnea, and peripheral edema. 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 Raynaud's syndrome Sciatica Tobacco abuse Urinary calculus, unspecified Renal stones--calcium oxalate PAST SURGICAL HISTORY Procedure Laterality Date CARDIAC CATHETERIZATION HX 07/04/2018 [facility]; LAD COLONOSCOPY W/BIOPSY SINGLE/MULTIPLE 05/27/2010 colonic irritation EGD TRANSORAL BIOPSY SINGLE/MULTIPLE 05/27/2010 duodenal ulcer LITHOTRIPSY / 1 SIDE [facility] 12/2020 Dr Raygoza NEPHROLITHOTOMY REMOVAL STAGE 1 multiple NEUROPLASTY AND/TRANSPOS MEDIAN NRV CARPAL TUNNE right Carpal tunnel decomp PAST SURGICAL HISTORY OF club foot repair as child PAST SURGICAL HISTORY OF 1998 discectomy, lumbar L5-S1 PAST SURGICAL HISTORY OF wisdom teeth ALLERGIES Brilinta [Ticagrelor], Lipitor [Atorvastatin Calcium], Lodine [Etodolac], and Wellbutrin [Bupropion Hcl] MEDICATIONS HYDROcodone-acetaminop hen (NORCO) 5-325 mg per tablet Take 2 tablets by mouth two times a day. May also take 1 tablet once daily as needed (breakthrough pain (some days needs 5 pills instead of 4)). Do all this for 30 days. Patient should start on October 06, 2024. amLODIPine (NORVASC) 5 mg tablet Take 1 tablet by mouth every afternoon. albuterol HFA (VENTOLIN HFA) 90 mcg/actuation inhaler Inhale 2 Puffs as instructed every 4 hours as needed for wheezing/shortness of breath. fluticasone-umeclidin- vilanter (TRELEGY ELLIPTA) 100-62.5-25 mcg inhalation powder Inhale 1 Puff as instructed once daily. Tadalafil (CIALIS) 20 mg tab(s) Take 1 tablet by mouth once daily. furosemide (LASIX) 20 mg tablet Take 1 tablet by mouth once daily as needed (fluid retention). ([facility]) metoprolol succinate ER (TOPROL XL) 25 mg 24 hr tablet Take 0.5 tablets by mouth twice daily. ([facility]) Cholecalciferol, Vitamin D3, 50 mcg (2,000 unit) cap Take 1 capsule by mouth once daily. losartan (COZAAR) 25 mg tablet Take 25 mg by mouth once daily. clopidogrel (PLAVIX) 75 mg tablet Take 75 mg by mouth once daily. rosuvastatin (CRESTOR) 5 mg tablet Take 20 mg by mouth once daily. aspirin, enteric coated (ASPIRIN, ENTERIC COATED) 81 mg EC tablet Take 81 mg by mouth once daily. MULTIVITAMIN ORAL DAILY HYDROcodone-acetaminop hen (NORCO) 5-325 mg per tablet Take 2 tablets by mouth two times a day. May also take 1 tablet once daily as needed (breakthrough pain (some days needs 5 pills instead of 4)). Do all this for 30 days. Patient should start on August 07, 2024. HYDROcodone-acetaminop hen (NORCO) 5-325 mg per tablet Take 2 tablets by mouth two times a day. May also take 1 tablet once daily as needed (breakthrough pain (some days needs 5 pills instead of 4)). Do all this for 30 days. Patient should start on September 06, 2024. HYDROcodone-acetaminop hen (NORCO) 5-325 mg per tablet Take 2 tablets by mouth two times a day. May also take 1 tablet once daily as ne (more content not included)... [facility] CNOVon 07-11-2024 CNOV Office Visit (INTMWS ) MOSHE ZIMMERMAN ([id number]) 1955 M Date Time Provider Department 07/11/24 2:00 PM ABEL PABLO INTMWS During your visit today, we recorded the following information about you: Pulse Respiration Blood pressure Weight 66/minute 16/minute 130/68 104 kg Abel Pablo MD 07/29/2024 8:46 AM Signed This note was created using Rackup. Subjective Moshe Zimmerman is a 69 year old male. Patient presents with: F/U 3 Month SUBJECTIVE: Moshe Zimmerman is a 69 year old year old gentleman here today for 3 month follow up appointment for review of medical conditions. Moshe Zimmerman is a 69-year-old male with a history of CAD, presenting for a routine 3-month follow-up. Moshe reports a recent episode of acute anterior hip pain that began upon waking one morning. The pain was sharp and severe, causing significant difficulty with ambulation. He speculates that the pain may have been due to sleeping on his side on a firm mattress, which he uses for back support. The pain persisted for approximately one week before gradually improving. During this time, he forced himself to walk, which he believes contributed to the improvement. He denies any recent trauma or injury to the hip. Moshe also reports a laceration sustained at work yesterday, which he managed with butterfly closures. He denies any other injuries or complications from the laceration. He is currently taking hydrocodone for pain management and reports that it is effective in maintaining his functionality. He recently filled his prescription on the . He also uses an albuterol inhaler at night, which he reports helps clear his lungs. He has been advised to start Trelegy but is waiting until the first of the year due to the cost associated with his deductible. Moshe has been making dietary changes, including portion control and increasing his intake of salads and celery, while avoiding fast food. He reports a gradual decrease in weight as a result of these changes. He received a flu shot last year and is willing to receive one today. He is up to date on his pneumonia vaccine, with the last dose received in 2021. He has not yet received the RSV, tetanus, or shingles vaccines, which are available at the pharmacy. He has completed the Cologuard test twice, with the first sample being insufficient for DNA extraction. The second sample was received on July 08 and is currently being processed. 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 May also take 1 tablet once daily as needed (breakthrough pain (some days needs 5 pills instead of 4)). Do all this for 30 days. HYDROcodone-acetaminop hen (NORCO) 5-325 mg per tablet Take 2 tablets by mouth two times a day. May also take 1 tablet once daily as needed (breakthrough pain (some days needs 5 pills instead of 4)). Do all this for 30 days. amLODIPine (NORVASC) 5 mg tablet Take 1 tablet by mouth every afternoon. HYDROcodone-acetaminop hen (NORCO) 5-325 mg per tablet Take 2 tablets by mouth two times a day. May also take 1 tablet once daily as needed (breakthrough pain (some days needs 5 pills instead of 4)). Do all this for 30 days. Patient should start on May 09, 2024. albuterol HFA (VENTOLIN HFA) 90 mcg/actuation inhaler Inhale 2 Puffs as instructed every 4 hours as needed for wheezing/shortness of breath. fluticasone-umeclidin- vilanter (TRELEGY ELLIPTA) 100-62.5-25 mcg inhalation powder Inhale 1 Puff as instructed once daily. HYDROcodone-acetaminop hen (NORCO) 5-325 mg per tablet Take 2 tablets by mouth two times a day. May also take 1 tablet once daily as needed (breakthrough pain (some days needs 5 pills instead of 4)). Do all this for 30 days. Nicotine Polacrilex [address] 1 Lozenge between cheek and gum as needed. (Patient not taking: Reported on 04/08/2024) Tadalafil (CIALIS) 20 mg tab(s) Take 1 tablet by mouth once daily. furosemide (LASIX) 20 mg tablet Take 1 tablet by mouth once daily as needed (fluid retention). ([facility]) (Patient taking differently: Take 20 mg by mouth once daily as needed (fluid retention). ([facility]) PRN-only when BEN feet swell) metoprolol succinate ER (TOPROL XL) 25 mg 24 hr tablet Take 0.5 tablets by mouth twice daily. ([facility]) potassium chloride (KLOR-CON 10) 10 mEq tablet Take 1 tablet by mouth daily with breakfast. (more content not included)... [facility] COLOGUARDon 05-18-2024 Noninvasive colorectal cancer DNA and occult blood screening Ql (Stl) No Result Obtained 3 N/A [facility] Comment on above: There was insufficie nt stool DNA detected to produce a valid Cologuard result. The patient will be contacted to initiate a new sample collection. [facility] CNOVon 04-08-2024 CNOV Office Visit (INTMWS ) ELSIEMOSHE Eleuterio ([id number]) 1955 M Date Time Provider Department 04/08/24 5:00 PM ABEL PABLO INTMWS During your visit today, we recorded the following information about you: Temperature Pulse Respiration Blood pressure 98.1 degrees 71/minute 16/minute 124/68 Weight 105.1 kg Abel Pablo MD 05/22/2024 11:20 PM Signed This note was created using FilmTrackriter. Subjective Moshe Zimmerman is a 69 year old male. Patient presents with: F/U 3 Month SUBJECTIVE: Moshe Zimmerman is a 69 year old year old gentleman here today for 3 month follow up appointment for review of medical conditions. Pain meds effective. No adverse effects. COPD eval and treated befroe but SOB turned out to be from needing a stent. Medicare Wellness done today also since Linda keeps calling. Meds adjusted by cardiology--Hiral added. BP better but has leg swelling--not severe. Did start smoking more a couple months ago due to stress. 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 HYDROcodone-acetaminop hen (NORCO) 5-325 mg per tablet Take 2 tablets by mouth two times a day. May also take 1 tablet once daily as needed (breakthrough pain (some days needs 5 pills instead of 4)). Do all this for 30 days. Tadalafil (CIALIS) 20 mg tab(s) Take 1 tablet by mouth once daily. furosemide (LASIX) 20 mg tablet Take 1 tablet by mouth once daily as needed (fluid retention). ([facility]) (Patient taking differently: Take 20 mg by mouth once daily as needed (fluid retention). ([facility]) PRN-only when BEN feet swell) metoprolol succinate ER (TOPROL XL) 25 mg 24 hr tablet Take 0.5 tablets by mouth twice daily. ([facility]) Cholecalciferol, Vitamin D3, 50 mcg (2,000 unit) cap Take 1 capsule by mouth once daily. losartan (COZAAR) 25 mg tablet Take 25 mg by mouth once daily. clopidogrel (PLAVIX) 75 mg tablet Take 75 mg by mouth once daily. rosuvastatin (CRESTOR) 5 mg tablet Take 20 mg by mouth once daily. aspirin, enteric coated (ASPIRIN, ENTERIC COATED) 81 mg EC tablet Take 81 mg by mouth once daily. MULTIVITAMIN ORAL DAILY [START ON 04/09/2024] HYDROcodone-acetaminop hen (NORCO) 5-325 mg per tablet Take 2 tablets by mouth two times a day. May also take 1 tablet once daily as needed (breakthrough pain (some days needs 5 pills instead of 4)). Do all this for 30 days. Patient should start on April 09, 2024. [START ON 05/09/2024] HYDROcodone-acetaminop hen (NORCO) 5-325 mg per tablet Take 2 tablets by mouth two times a day. May also take 1 tablet once daily as needed (breakthrough pain (some days needs 5 pills instead of 4)). Do all this for 30 days. Patient should start on May 09, 2024. [START ON 06/08/2024] HYDROcodone-acetaminop hen (NORCO) 5-325 mg per tablet Take 2 tablets by mouth two times a day. May also take 1 tablet once daily as needed (breakthrough pain (some days needs 5 pills instead of 4)). Do all this for 30 days. Patient should start on June 08, 2024. Nicotine Polacrilex [address] 1 Lozenge between cheek and gum as needed. (Patient not taking: Reported on 04/08/2024) potassium chloride (KLOR-CON 10) 10 mEq tablet Take 1 tablet by mouth daily with breakfast. ([facility]) (Patient not taking: Reported on 04/08/2024) No current facility-administered medications for this visit. Review of Systems Objective BP 124/68 Pulse 71 Temp 36.7 ?C (98.1 ?F) Resp 16 Wt 105.1 kg (231 lb 11.3 oz) SpO2 98% BMI 32.78 kg/m? Last 5 Encounter Wt Readings: Date: Wt: 04/08/2024 105.1 kg (231 lb 11.3 oz) 12/31/2023 107.5 kg (237 lb) 03/23/2023 107.5 kg (237 lb) 12/25/2022 109.6 kg (241 lb 11.2 oz) 09/25/2022 109.3 kg (241 lb) No waist measurement recorded Estimated body mass index is 32.78 kg/m? as calculated from the following: Height as of 01/19/17: 179.1 cm (5' 10.5). Weight as of this encounter: 105.1 kg (231 lb 11.3 oz). Last 5 Encounter BP Readings: Date: BP: 04/08/2024 124/68 12/31/2023 138/78 06/22/2023 134/78 03/23/2023 126/70 12/25/2022 138/82 Physical Exam Vitals reviewed. Constitutional: Appearance: Normal appearance. HENT: Head: Normocephalic. Right Ear: Tympanic membrane, ear canal and external ear normal. Left Ear: Tympanic membrane, ear canal and external ear normal. Mouth/Throat: Mouth: Mucous membra (more content not included)... [facility] Vital Signs Date Time Vital Sign Value Performing Clinician Faci lity 01-27-2025 08:20-0400 Body mass index (BMI) [Ratio] 34.3 kg/m2 Abel Pablo MD Work Phone: [facility] 01-27-2025 08:20-0400 Body weight 110 kg Abel Pablo MD Work Phone: [facility] 01-27-2025 08:20-0400 Diastolic blood pressure 80 mm[Hg] Abel Pablo MD Work Phone: [facility] 01-27-2025 08:20-0400 Heart rate 48 /min Abel Pablo MD Work Phone: [facility] 01-27-2025 08:20-0400 Respiratory rate 14 /min Abel Pablo MD Work Phone: [facility] 01-27-2025 08:20-0400 SaO2% (BldA) [Mass fraction] 97 % Abel Pablo MD Work Phone: [facility] 01-27-2025 08:20-0400 Systolic blood pressure 124 mm[Hg] Abel Pablo MD Work Phone: [facility] 01-08-2025 12:44-0400 Body height 177.[address] Abel Pablo MD Work Phone: [facility] 01-08-2025 12:44-0400 Body mass index (BMI) [Ratio] 35.2 kg/m2 Dr. Abel Pablo MD Work Phone: [facility] 01-08-2025 12:44-0400 Body weight 111.[address] Abel Pablo MD Work Phone: [facility] 01-08-2025 12:44-0400 Diastolic blood pressure 76 mm[Hg] Dr. Abel Pablo MD Work Phone: [facility] 01-08-2025 12:44-0400 Heart rate 53 /min Dr. Abel Pablo MD Work Phone: [phone] [place] [address] 01-08-2025 12:44-0400 Respiratory rate 16 /min Dr. Abel Pablo MD Work Phone: [facility] 01-08-2025 12:44-0400 Systolic blood pressure 144 mm[Hg] Dr. Abel Pablo MD Work Phone: [facility] 10-06-2024 10:56-0500 Diastolic blood pressure 70 mm[Hg] Koki Mike BUSINESS CHANGE MANAGER.INSURANCE SALES AGENT Work Phone: [facility] 10-06-2024 10:56-0500 Systolic blood pressure 140 mm[Hg] Koki Mike BUSINESS CHANGE MANAGER.INSURANCE SALES AGENT Work Phone: [facility] 10-06-2024 10:34-0500 Body mass index (BMI) [Ratio] 33.06 kg/m2 Koki Mike BUSINESS CHANGE MANAGER.INSURANCE SALES AGENT Work Phone: [facility] 10-06-2024 10:34-0500 Body weight 106 kg Koki Mike BUSINESS CHANGE MANAGER.INSURANCE SALES AGENT Work Phone: [facility] 10-06-2024 10:34-0500 Heart rate 57 /min Koki Mike BUSINESS CHANGE MANAGER.INSURANCE SALES AGENT Work Phone: [facility] 10-06-2024 10:34-0500 Respiratory rate 16 /min Koki Mike BUSINESS CHANGE MANAGER.INSURANCE SALES AGENT Work Phone: [facility] 07-11-2024 15:01-0500 Diastolic blood pressure 68 mm[Hg] Abel Pablo MD Work Phone: [facility] 07-11-2024 15:01-0500 Systolic blood pressure 130 mm[Hg] Abel Pablo MD Work Phone: [facility] 07-11-2024 14:05-0500 Body mass index (BMI) [Ratio] 32.43 kg/m2 Abel Pablo MD Work Phone: [facility] 07-11-2024 14:05-0500 Body weight 104 kg Abel Pablo MD Work Phone: [facility] 07-11-2024 14:05-0500 Heart rate 66 /min Abel Pablo MD Work Phone: [facility] 07-11-2024 14:05-0500 Respiratory rate 16 /min Abel Pablo MD Work Phone: [facility] 04-08-2024 16:59-0400 Body mass index (BMI) [Ratio] 32.78 kg/m2 Abel Pablo MD Work Phone: [facility] 04-08-2024 16:59-0400 Body temperature 98.1 [degF] Abel Pablo MD Work Phone: [facility] 04-08-2024 16:59-0400 Body weight 105.1 kg Abel Pablo MD Work Phone: [facility] 04-08-2024 16:59-0400 Diastolic blood pressure 68 mm[Hg] Abel Pablo MD Work Phone: [facility] 04-08-2024 16:59-0400 Heart rate 71 /min Abel Pablo MD Work Phone: [facility] 04-08-2024 16:59-0400 Respiratory rate 16 /min Abel Pablo MD Work Phone: [facility] 04-08-2024 16:59-0400 SaO2% (BldA) [Mass fraction] 98 % Abel Pablo MD Work Phone: [facility] 04-08-2024 16:59-0400 Systolic blood pressure 124 mm[Hg] Abel Pablo MD Work Phone: [facility] 12-31-2023 07:00-0400 Diastolic blood pressure 78 mm[Hg] Domonique Devine BUSINESS CHANGE MANAGER.ELECTROMECHANICAL ASSEMBLY TECHNICIAN Work Phone: [facility] 12-31-2023 07:00-0400 Systolic blood pressure 138 mm[Hg] Domonique Devine BUSINESS CHANGE MANAGER.ELECTROMECHANICAL ASSEMBLY TECHNICIAN Work Phone: [facility] 12-31-2023 06:59-0400 Body mass index (BMI) [Ratio] 33.53 kg/m2 Domonique Devine BUSINESS CHANGE MANAGER.ELECTROMECHANICAL ASSEMBLY TECHNICIAN Work Phone: [facility] 12-31-2023 06:59-0400 Body weight 107.5 kg Domonique Devine BUSINESS CHANGE MANAGER.ELECTROMECHANICAL ASSEMBLY TECHNICIAN Work Phone: [facility] 12-31-2023 06:59-0400 Heart rate 71 /min Domonique Devine BUSINESS CHANGE MANAGER.ELECTROMECHANICAL ASSEMBLY TECHNICIAN Work Phone: [facility] 12-31-2023 06:59-0400 Respiratory rate 16 /min Domonique Devine BUSINESS CHANGE MANAGER.ELECTROMECHANICAL ASSEMBLY TECHNICIAN Work Phone: [facility] 03-23-2023 08:32-0400 Body weight 107.5 kg Angie Al BUSINESS CHANGE MANAGER.INSURANCE SALES AGENT Work Phone: [facility] 03-23-2023 08:32-0400 Diastolic blood pressure 70 mm[Hg] Angie Al BUSINESS CHANGE MANAGER.INSURANCE SALES AGENT Work Phone: [facility] 03-23-2023 08:32-0400 Heart rate 60 /min Angie Al BUSINESS CHANGE MANAGER.INSURANCE SALES AGENT Work Phone: [facility] 03-23-2023 08:32-0400 Respiratory rate 16 /min Angie Al BUSINESS CHANGE MANAGER.INSURANCE SALES AGENT Work Phone: [facility] 03-23-2023 08:32-0400 SaO2% (BldA) [Mass fraction] 98 % Angie Al BUSINESS CHANGE MANAGER.INSURANCE SALES AGENT Work Phone: [facility] 03-23-2023 08:32-0400 Systolic blood pressure 126 mm[Hg] Angie Caleropaulette BRODERICKINSURANCE SALES AGENT Work Phone: [facility] 12-25-2022 09:32-0400 Body temperature 97.59 [degF] Abel Pablo MD Work Phone: [facility] 12-25-2022 09:32-0400 Body weight 109.63 kg Abel Pablo MD Work Phone: [facility] 12-25-2022 09:32-0400 Diastolic blood pressure 82 mm[Hg] Abel Pablo MD Work Phone: [facility] 12-25-2022 09:32-0400 Heart rate 55 /min Abel Pablo MD Work Phone: [facility] 12-25-2022 09:32-0400 Respiratory rate 16 /min Abel Pablo MD Work Phone: [facility] 12-25-2022 09:32-0400 SaO2% (BldA) [Mass fraction] 99 % Abel Pablo MD Work Phone: [facility] 12-25-2022 09:32-0400 Systolic blood pressure 138 mm[Hg] Abel Pablo MD Work Phone: [facility] 06-23-2022 10:07-0400 Body weight 111.58 kg Abel Pablo MD Work Phone: [facility] 06-23-2022 10:07-0400 Diastolic blood pressure 78 mm[Hg] Abel Pablo MD Work Phone: [facility] 06-23-2022 10:07-0400 Heart rate 61 /min Abel Pablo MD Work Phone: [facility] 06-23-2022 10:07-0400 SaO2% (BldA) [Mass fraction] 96 % Abel Pablo MD Work Phone: [facility] 06-23-2022 10:07-0400 Systolic blood pressure 142 mm[Hg] Abel Pablo MD Work Phone: [facility] 03-27-2022 08:00-0400 Body weight 109.77 kg Abel Pablo MD Work Phone: [facility] 03-27-2022 08:00-0400 Diastolic blood pressure 74 mm[Hg] Abel Pablo MD Work Phone: [facility] 03-27-2022 08:00-0400 Heart rate 66 /min Abel Pablo MD Work Phone: [facility] 03-27-2022 08:00-0400 Systolic blood pressure 140 mm[Hg] Abel Pablo MD Work Phone: [facility] 01-23-2022 08:02-0400 Body weight 109.32 kg Abel Pablo MD Work Phone: [facility] 01-23-2022 08:02-0400 Diastolic blood pressure 78 mm[Hg] Abel Pablo MD Work Phone: [facility] 01-23-2022 08:02-0400 Heart rate 51 /min Abel Pablo MD Work Phone: [facility] 01-23-2022 08:02-0400 SaO2% (BldA) [Mass fraction] 97 % Abel Pablo MD Work Phone: [facility] 01-23-2022 08:02-0400 Systolic blood pressure 138 mm[Hg] Abel Pablo MD Work Phone: [facility] 11-21-2021 08:51-0400 Diastolic blood pressure 70 mm[Hg] Abel Pablo MD Work Phone: [facility] 11-21-2021 08:51-0400 Systolic blood pressure 128 mm[Hg] Abel Pablo MD Work Phone: [facility] 11-21-2021 08:03-0400 Body weight 108.86 kg Aebl Pablo MD Work Phone: [facility] 11-21-2021 08:03-0400 Heart rate 68 /min Abel Pablo MD Work Phone: [facility] 09-26-2021 08:06-0500 Body weight 108.41 kg Abel Pablo MD Work Phone: [facility] 09-26-2021 08:06-0500 Diastolic blood pressure 72 mm[Hg] Abel Pablo MD Work Phone: [facility] 09-26-2021 08:06-0500 Heart rate 66 /min Abel Pablo MD Work Phone: [facility] 09-26-2021 08:06-0500 Systolic blood pressure 126 mm[Hg] Abel Pablo MD Work Phone: [facility] Encounters Encounter Date Encounter Type Care Provider Facility Start: 03-24-2025 ambulatory Jose Elias Facility:[facility] Start: 02-23-2025 Non-patient / Non-visit Lesly calle NP-C -[facility] Work Phone: Start: 02-23-2025 ambulatory Lesly Downs NP Facili ty:[facility] Start: 02-23-2025 End: 02-23-[address] Abel Pablo MD Work Phone: -[facility] Start: 02-23-2025 End: 02-23-[address] Jose Elisa MD -[facility] Work Phone: Start: 02-23-2025 ambulatory Abel Pablo Facilit y:[facility] Start: 02-23-2025 Non-patient / Non-visit Dr. Indio PERALTA -[facility] Start: 02-23-2025 End: 02-23-2025 ambulatory Abel Pablo Facility:[facility] Start: 01-27-2025 End: 01-27-2025 Office outpatient visit 25 minutes Abel Pablo MD Work Phone: [facility] Comment on above: Chronic bilateral lo w back pain with right-sided sciatica (Primary Dx); Chronic obstructive pulmonary disease, unspecified COPD type (HCC); DDD (degenerative disc disease), lumbar; Lumbar stenosis with neurogenic claudication; S/P coronary artery stents placement; Encounter for immunization; Tobacco use disorder; Class 1 obesity due to excess calories with body mass index (BMI) of 34.0 to 34.9 in adult, unspecified whether serious comorbidity present; Radiculopathy, lumbar region Start: 01-27-2025 End: 01-27-2025 ambulatory ABEL PABLO Facility:[facility] Start: 01-08-2025 End: 01-08-[address] Jose Elias MD -[facility] Work Phone: Start: 01-08-2025 End: 01-08-2025 ambulatory Abel Pablo Facility:[facility] Start: 12-30-2024 End: 12-31-2024 Refill Abel Pablo MD Work Phone: [address] [place] [address] Comment on above: Refill Request Start: 10-06-2024 End: 10-06-2024 ambulatory KOKI MCKEON Facility:[facility] Start: 10-06-2024 End: 10-06-2024 Patient encounter procedure Koki Mckeon APRN.CNP Work Phone: [facility] Comment on above: Chronic bilateral lo w back pain with bilateral sciatica (Primary Dx); DDD (degenerative disc disease), lumbar; Lumbar stenosis with neurogenic claudication; Essential (primary) hypertension; Mixed hyperlipidemia; Impaired glucose metabolism; High risk medication use; Encounter for drug screening; Degeneration of intervertebral disc of lumbar region with discogenic back pain and lower extremity pain Start: 07-11-2024 End: 07-11-2024 Office outpatient visit 25 minutes Abel Pablo MD Work Phone: [facility] Comment on above: Chronic bilateral lo w back pain with bilateral sciatica (Primary Dx); Essential (primary) hypertension; Pain of left hip; DDD (degenerative disc disease), lumbar; Lumbar stenosis with neurogenic claudication; Encounter for immunization Start: 07-11-2024 End: 07-11-2024 ambulatory ABEL PABLO Facility:[facility] Start: 07-04-2024 End: 07-08-2024 Refill Abel Pablo MD Work Phone: [facility] Comment on above: Refill Request Start: 04-09-2024 End: 04-10-2024 Refill Abel Pablo MD Work Phone: [facility] Comment on above: Refill Request Start: 04-08-2024 End: 04-08-2024 ambulatory ABEL PABLO Facility:[facility] Start: 04-08-2024 End: 04-08-2024 Patient encounter procedure Abel Pablo MD Work Phone: [facility] Comment on above: Medicare annual well ness visit, subsequent (Primary Dx); DDD (degenerative disc disease), lumbar; Lumbar stenosis with neurogenic claudication; Chronic obstructive pulmonary disease, unspecified COPD type (HCC); Chronic bilateral low back pain with bilateral sciatica; Primary hypertension; Bilateral lower extremity edema; Cigarette smoker; Screening for depression; Screening for prostate cancer; Screening for colon cancer Start: 03-10-2024 Refill Abel calle MD Work Phone: [facility] Comment on above: Refill Request Start: 01-09-2024 Refill Abel calle MD Work Phone: [facility] Comment on above: Refill Request Start: 12-31-2023 End: 12-31-2023 Office outpatient visit 25 minutes Domonique Devine APRN.CNS Work Phone: [facility] Comment on above: Lumbar stenosis with neurogenic claudication (Primary Dx); Screening for abdominal aortic aneurysm; Encounter for screening for lung cancer; Encounter for immunization; Screening for prostate cancer; Screening for colon cancer; DDD (degenerative disc disease), lumbar; Chronic bilateral low back pain with bilateral sciatica; Chronic bilateral low back pain with bilateral sciatica; Tobacco use disorder Start: 12-27-2023 Admission to [facility] Abel Pablo MD Work Phone: Ambulatory Surgery Comment on above: colorectal cancer sc reening (Patient is overdue as of 10/07/20 for every 3 year colon cancer screening. ) Start: 12-27-2023 ambulatory Abel calle MD Work Phone: Ambulatory Surgery Start: 10-01-2023 End: 10-01-2023 Office outpatient visit 25 minutes Abel Pablo MD Work Phone: [facility] [place] Comment on above: Chronic bilateral lo w back pain with bilateral sciatica (Primary Dx); Primary hypertension; Mixed hyperlipidemia; IFG (impaired fasting glucose); DDD (degenerative disc disease), lumbar; Lumbar stenosis with neurogenic claudication; Encounter for long-term current use of medication; Encounter for immunization Start: 07-09-2023 Refill Abel calle MD Work Phone: [facility] [place] Comment on above: Refill Request Start: 03-23-2023 End: 03-23-2023 Patient encounter procedure Angie Melendez APRN.CNP Work Phone: [facility] [place] Comment on above: DDD (degenerative di sc disease), lumbar (Primary Dx); Chronic bilateral low back pain with bilateral sciatica; Lumbar stenosis with neurogenic claudication; Primary hypertension; Class 1 obesity due to excess calories with serious comorbidity and body mass index (BMI) of 33.0 to 33.9 in adult Start: 12-25-2022 End: 12-25-2022 Office outpatient visit 25 minutes Abel Pablo MD Work Phone: [facility] Comment on above: Chronic bilateral lo w back pain with bilateral sciatica (Primary Dx); DDD (degenerative disc disease), lumbar; Erectile dysfunction, unspecified erectile dysfunction type; Lumbar stenosis with neurogenic claudication; S/P coronary artery stents placement; Coronary artery disease involving [place] coronary artery of [place] heart without angina pectoris; Primary hypertension; Class 1 obesity due to excess calories with body mass index (BMI) of 34.0 to 34.9 in adult, unspecified whether serious comorbidity present Start: 09-27-2022 ambulatory Darcy merchant PA-C Work Phone: Pulmonary Medicine Start: 09-20-2022 Refill Abel calle MD Work Phone: [facility] [place] Comment on above: Refill Request Start: 06-26-2022 Telephone encounter Abel mehta MD Work Phone: [facility] [place] Comment on above: Refill Request Start: 06-23-2022 End: 06-23-2022 Office outpatient visit 25 minutes Abel Pablo MD Work Phone: [facility] Comment on above: Chronic bilateral lo w back pain with bilateral sciatica (Primary Dx); Mixed hyperlipidemia; IFG (impaired fasting glucose); DDD (degenerative disc disease), lumbar; Lumbar stenosis with neurogenic claudication; Encounter for immunization Start: 03-27-2022 End: 03-27-2022 Office outpatient visit 25 minutes Abel Pablo MD Work Phone: [facility] Comment on above: Bilateral leg edema (Primary Dx); IFG (impaired fasting glucose); DDD (degenerative disc disease), lumbar; Chronic bilateral low back pain with bilateral sciatica; Lumbar stenosis with neurogenic claudication; Encounter for long-term current use of medication; Need for vaccination Start: 01-23-2022 End: 01-23-2022 Office outpatient visit 25 minutes Abel Pablo MD Work Phone: [facility] Comment on above: DDD (degenerative di sc disease), lumbar (Primary Dx); Chronic bilateral low back pain with bilateral sciatica; Lumbar stenosis with neurogenic claudication; Tobacco use disorder Start: 11-21-2021 End: 11-21-2021 Patient encounter procedure Abel Pablo MD Work Phone: [facility] Comment on above: DDD (degenerative di sc disease), lumbar (Primary Dx); Chronic bilateral low back pain with bilateral sciatica; Lumbar stenosis with neurogenic claudication; Panic attacks; S/P coronary artery stents placement; Class 1 obesity due to excess calories without serious comorbidity with body mass index (BMI) of 33.0 to 33.9 in adult Start: 09-26-2021 End: 09-26-2021 Patient encounter procedure Abel Pablo MD Work Phone: [facility] [place] Comment on above: DDD (degenerative di sc disease), lumbar; Chronic bilateral low back pain with bilateral sciatica; Lumbar stenosis with neurogenic claudication; Degeneration of lumbar intervertebral disc Procedures Date Procedure Procedure Detail Performing Clinician Start: 05-09-2024 COLOGUARD Abel mehta MD Work Phone: Start: 04-08-2024 Adult depression screening assessment Abel Pablo MD Work Phone: Start: 11-15-2023 Lipid 1996 panel - S jaqueline or Plasma Abel Pablo MD Work Phone: Start: 06-23-2022 INFLUENZA SEASONAL QUADRIVALENT HIGH DOSE AGE 65+ Abel Pablo MD Work Phone: Start: 06-08-2022 Lipid 1996 panel - S jaqueline or Plasma Abel Pablo MD Work Phone: Start: 01-23-2022 Adult depression screening assessment Abel Pablo MD Work Phone: Start: 11-25-2020 Adult depression screening assessment Abel Pablo MD Work Phone: Start: 03-12-2019 History of placement of stent for coronary artery disease History of coronary artery stent placement Dr. Jose Elias MD Comment on above: PGZ-KMI-Snjysf RCA w / 2.5 x 28 mm Elunir Stent and DENNIS-Mid RCA w/ 3.0 x 28 mm and 3.0 x 15 mm Elunir Stents 07/04/2018; PCI-DENNIS to mid LAD w/ 2.25 X 20 mm Promus Synergy and DENNIS to mid LCx w/ 3.0 X 28 mm Promus Synergy Stent 07/2018; PCI-DENNIS Prox LAD w/ 2.5 x 20 mm Promus Synergy Stent 03/12/2019 Start: 09-16-2018 History of placement of stent for coronary artery disease S/P coronary artery stents placement Abel Pablo MD Work Phone: Start: 05-27-2010 Colonoscopy Abel walker MD Work Phone: History of placement of stent for coronary artery disease S/P coronary artery stents placement Abel Pablo MD Work Phone: History of placement of stent for coronary artery disease S/P coronary artery stents placement Abel Pbalo MD Work Phone: History of placement of stent for coronary artery disease S/P coronary artery stents placement Abel Pablo MD Work Phone: Plan of Treatment Date Care Activity Detail Author Start: 02-04-2032 RSV Vaccine (1 - 1-d ose 75+ series) RSV Vaccine (1 - 1-dose 75+ series) [facility] Start: 04-08-2029 Prostate specific antigen measurement Prostate Cancer Screening Discussion [facility] Start: 11-14-2028 Lipid panel Lipid Screening [facility] Start: 07-07-2027 Screening for malign ant neoplasm of colon [facility] Start: 06-08-2027 Lipid 1996 panel - Serum or Plasma Lipid Screening [facility] Start: 06-08-2027 Lipid panel Lipid Screening [facility] Start: 06-08-2027 LIPID SCREEN LIPID SCREEN [facility] Start: 11-14-2026 Diabetes Screening Diabetes Screenin g [facility] Start: 05-18-2026 LIPID SCREEN LIPID SCREEN [facility] Start: 02-01-2026 End: 02-01-2026 Patient encounter procedure 02/01/2026 8:40 AM EDT Office Visit [facility] [place] [address] [place], [place] [id number] Abel Pablo MD [address] [place], [place] [id number] follow up 3 months [facility] [place] Comment on above: follow up 3 months Start: 01-27-2026 Abdominal aortic aneurysm screening Abdominal Aortic Aneurysm Screening [facility] Comment on above: Postponed from 02/03 (Declined at this time) Start: 01-27-2026 Annual PCP Team 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 Disease Visit Annual PCP Team Chronic Disease Visit [facility] Start: 01-27-2026 BP Controlled (<130/80) BP Controlle d (<130/80) [facility] Start: 01-27-2026 RSV Vaccine (1 - Ris k 60-74 years 1-dose series) RSV Vaccine (1 - Risk 60-74 years 1-dose series) [facility] Comment on above: Postponed from 02/03 (Declined at this time) Start: 01-27-2026 Screening for malign ant neoplasm of lung Lung Cancer Screening [facility] Comment on above: Postponed from 07/26 (Declined at this time) Start: 11-02-2025 End: 11-02-2025 Patient encounter procedure 11/02/2025 10:40 AM EDT Office Visit [facility] [address] [place] [address] Abel Pablo MD [address] [facility] [place] [address] follow up 3 months [facility] Comment on above: follow up 3 months Start: 10-06-2025 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 Team 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 Disease Visit Annual PCP Team Chronic Disease Visit [facility] Start: 08-03-2025 End: 08-03-2025 Patient encounter procedure 08/03/2025 8:40 AM EST Office Visit [facility] [place] [address] [place] [address] Abel Pablo MD [address] [facility], [place] [id number] 3 month f/u [facility] Comment on above: 3 month f/u Start: 07-11-2025 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 PCP Team 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 Disease Visit Annual PCP Team Chronic Disease Visit [facility] Start: 06-08-2025 DIABETES SCREEN DIABETES SCREEN [facility] Start: 06-08-2025 Diabetes Screening Diabetes Screenin g [facility] Start: 05-01-2025 End: 05-01-2025 Patient encounter procedure 05/01/2025 8:00 AM EDT Office Visit [facility] [place] [address] [place] [address] Abel Pablo MD [address] [facility], [place] [id number] Medicare Wellness visit [facility] Comment on above: Medicare Wellness vi sit Start: 04-08-2025 Annual PCP Team 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 Disease Visit Annual PCP Team Chronic Disease Visit [facility] Start: 04-08-2025 BP Controlled (<130/80) BP Controlle d (<130/80) [facility] Start: 04-08-2025 Depression Screening Depression Scre ening [facility] Start: 01-27-2025 End: 01-27-2025 Patient encounter procedure 01/27/2025 8:20 AM EDT Office Visit [facility] [place] [address] [place] [address] Abel Pablo MD [address] [place] [address] 3 month follow up [facility] Comment on above: 3 month follow up Start: 10-06-2024 End: 01-05-2025 CBC panel - Blood by Automated count COMPLETE BLOOD COUNT Lab Routine Essential (primary) hypertension Expected: 10/06/2024, Expires: 01/05/2025 [facility] Comment on above: Expected: 10/06/2024 , Expires: 01/05/2025 Start: 10-06-2024 End: 01-05-2025 Comprehensive metabolic 2000 panel - Serum or Plasma COMPREHENSIVE METABOLIC PANEL Lab Routine Mixed hyperlipidemia Expected: 10/06/2024, Expires: 01/05/2025 [facility] Comment on above: Expected: 10/06/2024 , Expires: 01/05/2025 Start: 10-06-2024 End: 01-05-2025 Hemoglobin A1c in Blood HEMOGLOBIN A1C Lab Routine Impaired glucose metabolism Expected: 10/06/2024, Expires: 01/05/2025 [facility] Comment on above: Expected: 10/06/2024 , Expires: 01/05/2025 Start: 10-06-2024 End: 01-05-2025 Lipid 1996 panel - Serum or Plasma LIPID PANEL BASIC Lab Routine Mixed hyperlipidemia Expected: 10/06/2024, Expires: 01/05/2025 [facility] Work Phone: Comment on above: Expected: 10/06/2024 , Expires: 01/05/2025 Start: 10-06-2024 End: 01-05-2025 TOXICOLOGY SCREEN, ROUTINE URINE TOXICOLOGY SCREEN, ROUTINE URINE Lab Routine High risk medication use Encounter for drug screening Expected: 10/06/2024, Expires: 01/05/2025 [facility] Comment on above: Expected: 10/06/2024 , Expires: 01/05/2025 Start: 10-06-2024 End: 10-06-2024 Patient encounter procedure 10/06/2024 8:40 AM EST Office Visit [facility] [address] [place] [address] Abel Pablo MD [address] [place] [address] 3 Month F/U [facility] Comment on above: 3 Month F/U Start: 10-01-2024 Annual PCP Team 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 Disease Visit Annual PCP Team Chronic Disease Visit [facility] Start: 10-01-2024 BP Controlled (<130/80) BP Controlle d (<130/80) [facility] Start: 08-20-2024 Advance Directive Discussion Advance Directive Discussion [facility] Start: 07-11-2024 End: 07-11-2024 Patient encounter procedure 07/11/2024 2:00 PM EST Office Visit [facility] [address] [facility] [address] Abel Pablo MD [address] [facility] [place] [address] 3 Month F/U [facility] Comment on above: 3 Month F/U Start: 05-18-2024 DIABETES SCREEN DIABETES SCREEN [facility] Start: 04-20-2024 Influenza vaccination [facility] Start: 04-08-2024 End: 04-08-2024 Patient encounter procedure 04/08/2024 5:00 PM EDT Office Visit [facility] [address] [facility] [address] Abel Pablo MD [address] [facility] [place] [address] 3 Month F/U [facility] [place] Comment on above: 3 Month F/U Start: 03-23-2024 ANNUAL PCP TEAM INVAS TECH CARISSA DISEASE VISIT ANNUAL PCP TEAM CHRONIC DISEASE VISIT [facility] Start: 03-23-2024 BP CONTROLLED (<130/80) BP CONTROLLE D (<130/80) [facility] Start: 02-01-2024 End: 02-01-2024 Patient encounter procedure 02/01/2024 10:15 AM EDT Office Visit General Surgery [address] [place] [address] Kemal Pabon MD [address] [address] consult- colonoscopy General Surgery Comment on above: consult- colonoscopy Start: 12-31-2023 End: 03-31-2024 PSA/PROSTATE SPECIFIC ANTIGEN SCREENING PSA/PROSTATE SPECIFIC ANTIGEN SCREENING Lab Routine Screening for prostate cancer Expected: 12/31/2023, Expires: 03/31/2024 [facility] Comment on above: Expected: 12/31/2023 , Expires: 03/31/2024 Start: 12-31-2023 End: 12-31-2023 Patient encounter procedure 12/31/2023 7:00 AM EDT Office Visit [facility] [place] [address] [place] [address] Domonique Devine APRN.ELECTROMECHANICAL ASSEMBLY TECHNICIAN [address] [place] [address] 3 month follow up [facility] [place] Comment on above: 3 month follow up Start: 12-26-2023 ANNUAL PCP TEAM INVAS TECH CARISSA DISEASE VISIT ANNUAL PCP TEAM CHRONIC DISEASE VISIT [facility] Start: 12-26-2023 SHINGRIX VACCINE (3 of 3) SHINGRIX VACCINE (3 of 3) [facility] Comment on above: Postponed from 11/28 (Declined at this time) Start: 12-26-2023 Urine microalbumin profile [facility] Comment on above: Postponed from 11/06 (Declined at this time) Start: 10-07-2023 COLOGUARD (FIT-DNA) COLOGUARD (FIT-D NA) [facility] Start: 10-07-2023 COLORECTAL CANCER SCREENING COLORECTAL CANCER SCREENING [facility] Start: 10-07-2023 Screening for malign ant neoplasm of colon [facility] Start: 10-01-2023 End: 12-31-2023 CBC panel - Blood by Automated count CBC Lab Routine Encounter for long-term current use of medication Primary hypertension Expected: 10/01/2023, Expires: 12/31/2023 [facility] Work Phone: Comment on above: Expected: 10/01/2023 , Expires: 12/31/2023 Start: 10-01-2023 End: 12-31-2023 Comprehensive metabolic 2000 panel - Serum or Plasma COMP METABOLIC PANEL Lab Routine Encounter for long-term current use of medication Primary hypertension IFG (impaired fasting glucose) Expected: 10/01/2023, Expires: 12/31/2023 [facility] Work Phone: Comment on above: Expected: 10/01/2023 , Expires: 12/31/2023 Start: 10-01-2023 End: 12-31-2023 Hemoglobin A1c in Blood HGB A1C Lab Routine Encounter for long-term current use of medication IFG (impaired fasting glucose) Expected: 10/01/2023, Expires: 12/31/2023 [facility] Work Phone: Comment on above: Expected: 10/01/2023 , Expires: 12/31/2023 Start: 10-01-2023 End: 12-31-2023 Lipid 1996 panel - Serum or Plasma LIPID PANEL BASIC Lab Routine Encounter for long-term current use of medication Mixed hyperlipidemia Expected: 10/01/2023, Expires: 12/31/2023 [facility] Work Phone: Comment on above: Expected: 10/01/2023 , Expires: 12/31/2023 Start: 10-01-2023 End: 12-31-2023 PAIN PANEL, UR QUANT PAIN PANEL, UR QUANT Lab Routine Encounter for long-term current use of medication Expected: 10/01/2023, Expires: 12/31/2023 [facility] Work Phone: Comment on above: Expected: 10/01/2023 , Expires: 12/31/2023 Start: 10-01-2023 End: 12-31-2023 TOX SCREEN ROUT UR TOX SCREEN ROUT UR Lab Routine Encounter for long-term current use of medication Expected: 10/01/2023, Expires: 12/31/2023 [facility] Work Phone: Comment on above: Expected: 10/01/2023 , Expires: 12/31/2023 Start: 08-20-2023 Advance Directive Discussion Advance Directive Discussion [facility] Start: 08-20-2023 Behavioral Health Screening Behavioral Health Screening [facility] Start: 08-20-2023 Depression Assessment Depression Ass essment [facility] Start: 06-23-2023 ABDOMINAL AORTIC ANEURYSM SCREENING ABDOMINAL AORTIC ANEURYSM SCREENING [facility] Comment on above: Postponed from 02/03 (Declined at this time) Start: 06-08-2023 Hepatitis B surface antibody level LDL CHOLESTEROL [facility] Start: 04-20-2023 Covid-19 Vaccine () Covid-19 Vaccine () [facility] Start: 04-20-2023 [facility] Start: 03-27-2023 COVID-19 VACCINE (4 - Booster for Pfizer series) COVID-19 VACCINE (4 - Booster for Pfizer series) [facility] Comment on above: Postponed from 10/10 (Declined at this time) Start: 03-27-2023 COVID-19 VACCINE (4 - Pfizer series) COVID-19 VACCINE (4 - Pfizer series) [facility] Comment on above: Postponed from 10/10 (Declined at this time) Start: 02-19-2023 PROSTATE CANCER SCREENING DISCUSSION PROSTATE CANCER SCREENING DISCUSSION [facility] Start: 02-19-2023 Prostate specific antigen measurement Prostate Cancer Screening Discussion [facility] Start: 01-23-2023 Adult depression screening assessment DEPRESSION SCREENING [facility] Start: 01-23-2023 ANNUAL PCP TEAM INVAS TECH CARISSA DISEASE VISIT ANNUAL PCP TEAM CHRONIC DISEASE VISIT [facility] Start: 11-21-2022 ANNUAL PCP TEAM INVAS TECH CARISSA DISEASE VISIT ANNUAL PCP TEAM CHRONIC DISEASE VISIT [facility] Start: 11-06-2022 Urine microalbumin profile [facility] Start: 09-26-2022 Influenza vaccination LUNG CANCER SC REENING [facility] Comment on above: Postponed from 07/26 (Declined at this time) Start: 09-26-2022 SHINGRIX VACCINE (2 of 3) SHINGRIX VACCINE (2 of 3) [facility] Comment on above: Postponed from 07/26 (Declined at this time) Start: 08-20-2022 ADVANCE DIRECTIVE DISCUSSION ADVANCE DIRECTIVE DISCUSSION [facility] Start: 08-20-2022 DEPRESSION ASSESSMENT DEPRESSION ASS ESSMENT [facility] Start: 05-18-2022 Hepatitis B surface antibody level LDL CHOLESTEROL [facility] Start: 04-26-2022 End: 06-26-2022 Hemoglobin A1c in Blood HGB A1C Lab Routine IFG (impaired fasting glucose) Expected: 04/26/2022 (Approximate), Expires: 06/26/2022 [facility] Work Phone: Comment on above: Expected: 04/26/2022 (Approximate), Expires: 06/26/2022 Start: 04-20-2022 Influenza vaccination INFLUENZA (#1) [facility] Start: 03-27-2022 End: 05-27-2022 PAIN PANEL, UR QUANT PAIN PANEL, UR QUANT Lab Routine Encounter for long-term current use of medication Expected: 03/27/2022, Expires: 05/27/2022 [facility] Work Phone: Comment on above: Expected: 03/27/2022 , Expires: 05/27/2022 Start: 03-27-2022 End: 05-27-2022 TOX SCREEN ROUT UR TOX SCREEN ROUT UR Lab Routine Encounter for long-term current use of medication Expected: 03/27/2022, Expires: 05/27/2022 [facility] Work Phone: Comment on above: Expected: 03/27/2022 , Expires: 05/27/2022 Start: 12-14-2021 COVID-19 VACCINE (4 - Booster for Pfizer series) COVID-19 VACCINE (4 - Booster for Pfizer series) [facility] Start: 11-28-2021 SHINGRIX VACCINE (3 of 3) SHINGRIX VACCINE (3 of 3) [facility] Start: 11-25-2021 Adult depression screening assessment DEPRESSION SCREENING [facility] Start: 08-20-2021 DEPRESSION ASSESSMENT DEPRESSION ASS ESSMENT [facility] Start: 07-26-2021 Influenza vaccination LUNG CANCER SC REENING [facility] Start: 07-26-2021 Screening for malign ant neoplasm of lung Lung Cancer Screening [facility] Start: 2017 RSV Vaccine (1 - 1-d ose 60+ series) RSV Vaccine (1 - 1-dose 60+ series) [facility] Start: 05-26-2015 FECAL OCCULT BLOOD FECAL OCCULT BLOO D [facility] Start: 05-26-2015 Screening for malign ant neoplasm of colon Fecal Occult Blood [facility] Start: 05-27-2011 Colonoscopy COLONOSCOPY [facility] Start: 05-27-2011 Screening for malign ant neoplasm of colon Colonoscopy [facility] Start: [address] COLONOGRAPHY [facility] Start: 2002 Screening for malign ant neoplasm of colon [facility] Start: 2002 SIGMOIDOSCOPY SIGMOIDOSCOPY [facility] Start: 1975 BP CONTROLLED (<130/80) BP CONTROLLE D (<130/80) [facility] Start: 1957 ABDOMINAL AORTIC ANEURYSM SCREENING ABDOMINAL AORTIC ANEURYSM SCREENING [facility] Start: 1957 Abdominal aortic aneurysm screening Abdominal Aortic Aneurysm Screening [facility] NM Heart Views W str ess and W radionuclide IV [facility] End: 01-29-2025 US Abdominal Aorta for screening US SCREENING FOR AAA Radiology Routine Screening for abdominal aortic aneurysm 1 Occurrences starting 12/31/2023 until 01/29/2025 [facility] Work Phone: Comment on above: 1 Occurrences starti ng 12/31/2023 until 01/29/2025 [facility] Immunizations Immunization Date Immunization Notes Care Provider Samuel ozuna 07-11-2024 influenza, high dose seasonal, preservative-free Abel Pablo MD Work Phone: [facility] 06-23-2022 influenza, high-dose , quadrivalent vaccine (FLUZONE HIGH DOSE QUADRIVALENT) Abel Pablo MD Work Phone: [facility] 06-23-2022 influenza virus vacc ine, unspecified formulation Abel Pablo MD Work Phone: [facility] 03-27-2022 pneumococcal (PCV20) vaccine, 20 valent (PREVNAR 20) Abel Pablo MD Work Phone: [facility] 03-27-2022 pneumococcal Conjuga te, unspecified formulation Abel Pablo MD Work Phone: [facility] Work Phone: 10-03-2021 zoster vaccine recombinant Darcy Aidan HU Work Phone: [facility] 08-15-2021 COVID-19 original vaccine, age 12+ yr, monovalent (PFIZER-BIONTECH - PURPLE TOP) Abel Pablo MD Work Phone: [facility] 05-27-2021 influenza, injectabl e, quadrivalent, contains preservative Abel Pablo MD Work Phone: [facility] Work Phone: 12-28-2020 COVID-19 vaccine, ag e 12+ yr (PFIZER-BIONTECH - PURPLE TOP) Abel Pablo MD Work Phone: [facility] 12-06-2020 COVID-19 vaccine, ag e 12+ yr (PFIZER-BIONTECH - PURPLE TOP) Abel Pablo MD Work Phone: [facility] 06-09-2020 influenza, seasonal, injectable Abel Pablo MD Work Phone: [facility] 05-27-2019 influenza, injectabl e, quadrivalent, contains preservative Abel Pablo MD Work Phone: [facility] 05-21-2018 influenza, injectabl e, quadrivalent, contains preservative Abel Pablo MD Work Phone: [facility] 05-23-2017 influenza, injectabl e, quadrivalent, contains preservative Abel aPblo MD Work Phone: [facility] 07-12-2016 influenza, injectabl e, quadrivalent, contains preservative Abel Pablo MD Work Phone: [facility] 07-12-2016 pneumococcal polysaccharide vaccine, 23 valent Abel Pablo MD Work Phone: [facility] 05-31-2015 zoster vaccine, live Abel phelps MD Work Phone: [facility] 05-26-2014 influenza, seasonal, injectable Abel Pablo MD Work Phone: [facility] 11-06-2012 tetanus toxoid, redu polly diphtheria toxoid, and acellular pertussis vaccine, adsorbed Abel Pablo MD Work Phone: [facility] 07-17-2005 tetanus toxoid, redu polly diphtheria toxoid, and acellular pertussis vaccine, adsorbed Abel Pablo MD Work Phone: [facility] Work Phone: Payers Date Payer Category Payer Self-pay 2023 Medicare (Managed Care) LINDA SINGER [id number] 2023 Medicare [id number] 2022 Medicare [id number] 2010 Unknown ANTHEM BLUE ACCE SS O [id number] 2010-Present [phone] [address] [place] [address] [facility] [id number] 2010 Unknown ANTHEM BLUE ACCE SS O [id number] 2010-Present [phone] [address] [place] [address] [facility] [id number] 2001 Unknown [id number] Unknown [id number] Unknown [id number] Unknown [id number] Unknown [id number] Unknown [id number] Social History Date Type Detail Facility Start: 08-06-2018 End: 12-31-2023 Tobacco smoking status NHIS Ex-smoker [facility] End: 07-04-2018 History of tobacco use Current smoker [facility] Start: 07-04-1978 End: 07-04-2018 History of tobacco use Cigarette Smoker [facility] Start: 08-06-2018 End: 12-25-2022 Cigarettes smoked current (pack per day) - Reported 2 [facility] Work Phone: Start: 08-06-2018 End: 01-27-2025 Tobacco use and exposure User of smokeless tobacco [facility] History of tobacco use Chews Tobacco [facility] Start: 11-21-2021 End: 01-27-2025 Alcohol intake Current non-drinker of alcohol (finding) [facility] Start: 11-21-2021 Tobacco Comment At least not s moking; working on cutting back--low dose packets now. Considering working on quitting--working on cutting out the chewing tobacco [facility] Start: 1955 Sex Assigned At Male [facility] Start: 11-11-2021 End: 06-23-2022 Exposure to SARS-CoV-2 (event) Not sure [facility] Start: 07-26-2020 Tobacco Comment At least not s moking; working on cutting back--low dose packets now. Considering working on quitting [facility] Start: 01-23-2022 End: 09-25-2022 Tobacco Comment At least not smoking; working on cutting back--low dose packets now. Considering working on quitting--working on cutting out the chewing tobacco--planning on trying to quit after retires [facility] Start: 12-25-2022 End: 03-23-2023 Tobacco use panel [facility] Work Phone: Adult Depression Screening Assessment 0 [facility] Work Phone: Start: 11-18-2021 Gender identity Identifies as male gender (finding) [facility] Start: 11-18-2021 Sexual orientation Heterosexual (fin sean) [facility] Start: 10-01-2023 Tobacco Comment At least not s moking; working on cutting back--low dose packets now. Considering working on quitting--working on cutting out the chewing tobacco--planning on trying to quit after retires . Smokes if does not chew. [facility] Start: 12-31-2023 Tobacco Comment Not currently chewing tobacco [facility] Start: 07-04-1978 End: 01-27-2025 Tobacco smoking status NHIS Occasional tobacco smoker [facility] How often to you hav e a drink containing alcohol? Monthly or less [facility] How many standard drinks containing alcohol do you have on a typical day? 1 or 2 [facility] How often do you hav e 6 or more drinks on 1 occasion? Never [facility] Start: 02-13-2024 Tobacco smoking stat us WIIS Smokes tobacco daily (finding) [facility] Start: 01-05-2021 Tobacco Use Tobacco Use [facility] Functional Status Date Assessment Result Facility 10-12-2016 Are you deaf, or do you have serious difficulty hearing No 10/12/2016 12:13 PM Shara Dubois APRN.PASCUAL No [facility] 10-12-2016 Are you blind, or do you have serious difficulty seeing, even when wearing glasses No 10/12/2016 12:13 PM Shara Dubois APRN.PASCUAL No [facility] 10-12-2016 Do you have serious difficulty walking or climbing stairs No 10/12/2016 12:13 PM Shara Dubois APRN.PASCUAL No [facility] 10-12-2016 Do you have difficul ty dressing or bathing No 10/12/2016 12:13 PM Shara Dubois APRN.CNP No [facility] 10-12-2016 Because of a physica l, mental, or emotional condition, do you have difficulty doing errands alone such as visiting a physician's office or shopping No 10/12/2016 12:13 PM Shara Dubois APRN.INSURANCE SALES AGENT No [facility] Mental Status Date Assessment Result Facility 10-12-2016 Because of a physica l, mental, or emotional condition, do you have serious difficulty concentrating, remembering, or making decisions No 10/12/2016 12:13 PM Shara Dubois APRN.INSURANCE SALES AGENT No [facility] Clinical Notes 09-26-2021 to 01-27-2025 Patient InstructionsAbel aPblo MD - 01/27/2025 9:21 AM EDT Note Date & Type Note Facility 01-27-2025 Instructions Abel Pablo MD - 01/27/2025 9:31 AM EDT - Continue your medications as directed: - Use hydrocodone for general pain as needed. - Take Trelegy inhaler once daily; prescription has been refilled with 11 refills at [facility]. - Take Lasix (furosemide) 20 mg as needed for swelling; cardiology will manage refills. - Continue your potassium supplement once daily with breakfast. - Manage your right-sided sciatica (radiculopathy): - Resume the stretching and exercise routine you were doing previously to improve flexibility. - Adjust your sleep position to better support your spine and reduce nerve pinching at night. - Work on gradual weight loss by cutting back on snacks, eating mindfully, and adding regular exercise. - If your symptoms persist despite these measures, consider scheduling physical therapy for targeted exercises, traction, or ultrasound treatments. - Vaccines and preventive screening: - Schedule a tetanus booster at your pharmacy (reminder has been added to your chart). - RSV vaccine is recommended in the fall; the pharmacy will notify you when it s available. - If you decide to get the shingles vaccine, it can be administered at your pharmacy and is covered by Medicare. - Because of your smoking history, you may be eligible for lung cancer screening. Contact the our office if you d like to proceed so I can place the order. - Legal documents: - Provide a copy of your living will and health care power of residential therapist to be included in your chart (or upload via [employer]). - Follow-up: - Attend your scheduled treadmill stress test on the of next month. documented in this encounter [facility] 01-27-2025 Note HNO ID: [id number] Author: ABEL PABLO MD Service: ? Author Type: Physician Type: Progress Notes Filed: 01/27/2025 09:36 Note Text: This note was created using Linq[employer]ter. Subjective Moshe Zimmerman is a 69 year old male. Patient presents with: Follow Up: 3 months Pain: RT hip x 2 months Moshe Zimmerman is a 69-year-old male with a history of CAD, presenting for a 3-month follow-up visit. Moshe reports right-sided hip pain that occurs primarily at night when lying down, radiating from the hip to the outside of the foot. The pain is not associated with tenderness upon palpation and is not present during the day. He also experiences pain after walking approximately 25 yards, necessitating a brief rest. He denies any current back pain and has no symptoms on the left side. He has a history of similar symptoms, which were previously alleviated by regular exercises to maintain flexibility, but he has since discontinued these exercises. Moshe has gained approximately 15 lbs, increasing from 229 lbs to 242 lbs, which he attributes to increased snack consumption brought into the house by his brother. He reports difficulty putting on shoes due to the weight gain. He expresses interest in resuming chair exercises to improve flexibility. Moshe is currently taking hydrocodone for pain management, which he reports is effective. He also uses Trelegy for respiratory issues but has not been using it consistently due to cost. He reports nocturnal wheezing and has a history of smoking, currently smoking more than 1 pack per day, increased from 1/4 pack per day since July of last year. He attributes the increase in smoking to having more time on his hands and watching more TV. He expresses a desire to reduce smoking and plans to return to work a couple of days a week to stay busy. Moshe is also taking Lasix 20 mg as needed for lower extremity edema, which he reports occurs when he is idle and not active. He takes potassium daily with breakfast. He has a stress test scheduled for the of next month, which he reports is a routine screening as it has been 4 years since his last test. He denies any recent dyspnea on exertion, chest pain, or pressure. He has advanced directives in place, including a living will and a healthcare power of residential therapist, with Jia Zimmerman designated as the person to contact if he is unconscious. 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 albuterol HFA (VENTOLIN HFA) 90 mcg/actuation inhaler Inhale 2 Puffs as instructed every 4 hours as needed for wheezing/shortness of breath. Tadalafil (CIALIS) 20 mg tab(s) Take 1 tablet by mouth once daily. metoprolol succinate ER (TOPROL XL) 25 mg 24 hr tablet Take 0.5 tablets by mouth twice daily. ([facility]) Cholecalciferol, Vitamin D3, 50 mcg (2,000 unit) cap Take 1 capsule by mouth once daily. losartan (COZAAR) 25 mg tablet Take 25 mg by mouth once daily. clopidogrel (PLAVIX) 75 mg tablet Take 75 mg by mouth once daily. rosuvastatin (CRESTOR) 5 mg tablet Take 20 mg by mouth once daily. aspirin, enteric coated (ASPIRIN, ENTERIC COATED) 81 mg EC tablet Take 81 mg by mouth once daily. MULTIVITAMIN ORAL DAILY [START ON 2025] HYDROcodone-acetaminophen (NORCO) 5-325 mg per tablet Take 2 tablets by mouth two times a day. May also take 1 tablet once daily as needed (breakthrough pain (some days needs 5 pills instead of 4)). Do all this for 30 days. Patient should start on 2025. [START ON 03/05/2025] HYDROcodone-acetaminophen (NORCO) 5-325 mg per tablet Take 2 tablets by mouth two times a day. May also take 1 tablet once daily as needed (breakthrough pain (some days needs 5 pills instead of 4)). Do all this for 30 days. Patient should start on March 05, 2025. qvedsyeasyg-agynwztjc-wdzthlda (TRELEGY ELLIPTA) 100-62.5-25 mcg inhalation powder Inhale 1 puff as instructed once daily. furosemide (LASIX) 20 mg tablet Take 1 tablet by mouth once daily as needed (fluid retention). ([facility]) potassium chloride (KLOR-CON 10) 10 mEq tablet Take 1 tablet by mouth daily with breakfast. ([facility]) Nicotine Polacrilex [address] 1 Lozenge between cheek and gum as needed. No current facility-administered medications for this visit. Review of Systems Objective BP 124/80 Pulse (!) 48 Resp 14 Wt 110 kg (242 lb 8.1 oz) SpO2 97% BMI 34.30 kg/m? Last 5 Encounter Wt Readings: Date: Wt: 01/27/2025 110 kg (242 lb 8.1 oz) (more content not included)... [facility] 01-27-2025 History of Presen t illness Narrative This note was created using Linq3ter. Subjective Moshe Zimmerman is a 69 year old male. Patient presents with: Follow Up: 3 months Pain: RT hip x 2 months Moshe Zimmerman is a 69-year-old male with a history of CAD, presenting for a 3-month follow-up visit. Moshe reports right-sided hip pain that occurs primarily at night when lying down, radiating from the hip to the outside of the foot. The pain is not associated with tenderness upon palpation and is not present during the day. He also experiences pain after walking approximately 25 yards, necessitating a brief rest. He denies any current back pain and has no symptoms on the left side. He has a history of similar symptoms, which were previously alleviated by regular exercises to maintain flexibility, but he has since discontinued these exercises. Moshe has gained approximately 15 lbs, increasing from 229 lbs to 242 lbs, which he attributes to increased snack consumption brought into the house by his brother. He reports difficulty putting on shoes due to the weight gain. He expresses interest in resuming chair exercises to improve flexibility. Moshe is currently taking hydrocodone for pain management, which he reports is effective. He also uses Trelegy for respiratory issues but has not been using it consistently due to cost. He reports nocturnal wheezing and has a history of smoking, currently smoking more than 1 pack per day, increased from 1/4 pack per day since July of last year. He attributes the increase in smoking to having more time on his hands and watching more TV. He expresses a desire to reduce smoking and plans to return to work a couple of days a week to stay busy. Moshe is also taking Lasix 20 mg as needed for lower extremity edema, which he reports occurs when he is idle and not active. He takes potassium daily with breakfast. He has a stress test scheduled for the of next month, which he reports is a routine screening as it has been 4 years since his last test. He denies any recent dyspnea on exertion, chest pain, or pressure. He has advanced directives in place, including a living will and a healthcare power of residential therapist, with Jia Zimmerman designated as the person to contact if he is unconscious. 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 albuterol HFA (VENTOLIN HFA) 90 mcg/actuation inhaler Inhale 2 Puffs as instructed every 4 hours as needed for wheezing/shortness of breath. Tadalafil (CIALIS) 20 mg tab(s) Take 1 tablet by mouth once daily. metoprolol succinate ER (TOPROL XL) 25 mg 24 hr tablet Take 0.5 tablets by mouth twice daily. ([facility]) Cholecalciferol, Vitamin D3, 50 mcg (2,000 unit) cap Take 1 capsule by mouth once daily. losartan (COZAAR) 25 mg tablet Take 25 mg by mouth once daily. clopidogrel (PLAVIX) 75 mg tablet Take 75 mg by mouth once daily. rosuvastatin (CRESTOR) 5 mg tablet Take 20 mg by mouth once daily. aspirin, enteric coated (ASPIRIN, ENTERIC COATED) 81 mg EC tablet Take 81 mg by mouth once daily. MULTIVITAMIN ORAL DAILY [START ON 2025] HYDROcodone-acetaminophen (NORCO) 5-325 mg per tablet Take 2 tablets by mouth two times a day. May also take 1 tablet once daily as needed (breakthrough pain (some days needs 5 pills instead of 4)). Do all this for 30 days. Patient should start on 2025. [START ON 03/05/2025] HYDROcodone-acetaminophen (NORCO) 5-325 mg per tablet Take 2 tablets by mouth two times a day. May also take 1 tablet once daily as needed (breakthrough pain (some days needs 5 pills instead of 4)). Do all this for 30 days. Patient should start on March 05, 2025. ojlclfojdmp-ilbwgnqbi-baxkvbqq (TRELEGY ELLIPTA) 100-62.5-25 mcg inhalation powder Inhale 1 puff as instructed once daily. furosemide (LASIX) 20 mg tablet Take 1 tablet by mouth once daily as needed (fluid retention). ([facility]) potassium chloride (KLOR-CON 10) 10 mEq tablet Take 1 tablet by mouth daily with breakfast. ([facility]) Nicotine Polacrilex [address] 1 Lozenge between cheek and gum as needed. No current facility-administered medications for this visit. Review of Systems Objective BP 124/80 Pulse (!) 48 Resp 14 Wt 110 kg (242 lb 8.1 oz) SpO2 97% BMI 34.30 kg/m Last 5 Encounter Wt Readings: Date: Wt: 01/27/2025 110 kg (242 lb 8.1 oz) 10/06/2024 106 kg (233 lb 11 oz) 07/11/2024 104 kg (229 lb 4.5 oz) 04/08/2024 105.1 kg (231 lb 11.3 oz) 12/31/2023 107.5 kg (237 lb) No waist measurement recorded Estimated body mass index is 34.3 kg/m as calculated from the following: Height as of 01/19/17: 179.1 cm (5' 10.5). Weight as of this encounter: 110 kg (242 lb 8.1 oz). Last 5 Encounter BP Readings: Date: BP: 01/27/2025 124/80 10/06/2024 140/70 07/11/2024 130/68 04/08/2024 124/68 12/31/2023 138/78 Physical Exam Vitals reviewed. Constitutional: Appearance: Normal appearance. Eyes: Conjunctiva/sclera: Conjunctivae normal. Cardiovascular: Rate and Rhythm: Normal rate and regular rhythm. Heart sounds: Normal heart sounds. Pulmonary: Effort: Pulmonary effort is normal. Breath sounds: Normal breath sounds. Musculoskeletal: Right lower le+ Pitting Edema present. Left lower le+ Pitting Edema present. Skin: General: Skin is warm and dry. Neurological: General: No focal deficit present. Mental Status: He is alert and oriented to person, place, and time. Psychiatric: Mood and Affect: Mood normal. Behavior: Behavior normal. Thought Content: Thought content normal. Judgment: Judgment normal. Assessment and Plan # Chronic bilateral low back pain with right-sided sciatica (G89.29) # Radiculopathy, lumbar region (M54.16) - Right-sided sciatica with radicular pain extending to the lateral aspect of the foot, exacerbated at night and with prolonged standing. - Discussed pathophysiology of lumbar radiculopathy and sciatica, including nerve root compression due to DDD and lumbar stenosis. - Recommended resumption of previous stretching and exercise regimen to alleviate symptoms. - Advised weight loss to reduce mechanical stress on the lumbar spine. - If symptoms persist, consider referral to physical therapy for traction and deep ultrasound treatments. # Chronic obstructive pulmonary disease, unspecified COPD type (HCC) (J44.9) - Noted wheezing, particularly at night. - Reinforced the importance of consistent use of Trelegy inhaler; refilled with 11 refills sent to [facility] pharmacy. - Discussed potential contribution of non-adherence to inhaler therapy to current respiratory symptoms. # DDD (degenerative disc disease), lumbar (M51.369) # Lumbar stenosis with neurogenic claudication (M48.062) - Contributing to nerve root compression and sciatica symptoms. - Educated on the impact of degenerative changes and spinal stenosis on nerve root impingement. - Emphasized the importance of maintaining spinal flexibility through regular exercise. # S/P coronary artery stent placement (Z95.5) - No current chest pain or dyspnea on exertion reported. - Scheduled for a treadmill stress test on the 7th of next month as part of routine surveillance. - Discussed the importance of the stress test in assessing stent patency and cardiovascular status. # Encounter for immunization (Z23) - Tetanus vaccine due; advised to schedule at the pharmacy. - RSV vaccine to be considered in the fall. - Discussed shingles vaccine availability at the pharmacy. # Tobacco use disorder (F17.200) - Smoking increased to more than a pack per day since July of last year. - Discussed triggers for smoking, including boredom and habit. - Advised on strategies to manage cravings and reduce smoking. - Discussed lung cancer screening options due to significant smoking history. # Class 1 obesity due to excess calories with body mass index (BMI) of 34.0 to 34.9 in adult, unspecified whether serious comorbidity present (E66.811) - Current weight 242 lbs, increased from 229 lbs. - Discussed the impact of excess weight on spinal health and sciatica symptoms. - Advised dietary modifications to reduce caloric intake, particularly from snacks. - Encouraged regular physical activity to facilitate weight loss. Abel Pablo MD Recording using [employer] software for draft documentation of the visit was discussed with the patient/authorized customer service representative teller; all questions welcomed and answered. Patient/authorized customer service representative teller agreed to proceed documented in this encounter [facility] 01-08-2025 Evaluation note Diagnosis Onset Date Resolution Essential (primary) hypertension chronic January 08, 2025 12:42pm Hyperlipidemia chronic January 08, 2025 12:42pm Nicotine dependence chronic December 192024 12:42pm History of coronary artery stent placement March 12, 2019 resolved January 08, 2025 12:42pm [facility] Work Phone: [phone] 689-526705-13-2025 Telephone encounter Note* Telephone Encounter - Abel Pablo MD - 12/30/2024 4:28 PM EDT The following approved medication requests have been transmitted electronically. Requested Prescriptions Signed Prescriptions Disp Refills HYDROcodone-acetaminophen (NORCO) 5-325 mg per tablet 140 tablet 0 Sig: Take 2 tablets by mouth two times a day. May also take 1 tablet once daily as needed (breakthrough pain (some days needs 5 pills instead of 4)). Do all this for 30 days. Patient should start on January 04, 2025. Authorizing Provider: ABEL PABLO MD [facility]05-13-2025 Miscellaneous Notes* Telephone Encounter - Abel Pablo MD - 12/30/2024 4:28 PM EDT The following approved medication requests have been transmitted electronically. Requested Prescriptions Signed Prescriptions Disp Refills HYDROcodone-acetaminophen (NORCO) 5-325 mg per tablet 140 tablet 0 Sig: Take 2 tablets by mouth two times a day. May also take 1 tablet once daily as needed (breakthrough pain (some days needs 5 pills instead of 4)). Do all this for 30 days. Patient should start on January 04, 2025. Authorizing Provider: ABEL PABLO MD * Telephone Encounter - Ana Figueroa - 12/30/2024 12:09 PM EDT Prescription Refill Information The patient has been identified by name and date of : Yes Caregiver verified no other encounters exist for this prescription request: Yes Caregiver confirmed with patient/requestor that no other refills are due, in the near future, with this provider at this time: Yes The last office visit in the department: Does the patient have a future office visit with this provider/department: Yes Requested Prescriptions Pending Prescriptions Disp Refills HYDROcodone-acetaminophen (NORCO) 5-325 mg per tablet 140 tablet 0 Sig: Take 2 tablets by mouth two times a day. May also take 1 tablet once daily as needed (breakthrough pain (some days needs 5 pills instead of 4)). Do all this for 30 days. Ana Beatty December 30, 2024 12:10 PM [facility] Telephone encounter Note * Telephone Encounter - Ana Figueroa - 12/30/2024 12:09 PM EDT Prescription Refill Information The patient has been identified by name and date of : Yes Caregiver verified no other encounters exist for this prescription request: Yes Caregiver confirmed with patient/requestor that no other refills are due, in the near future, with this provider at this time: Yes The last office visit in the department: Does the patient have a future office visit with this provider/department: Yes Requested Prescriptions Pending Prescriptions Disp Refills HYDROcodone-acetaminophen (NORCO) 5-325 mg per tablet 140 tablet 0 Sig: Take 2 tablets by mouth two times a day. May also take 1 tablet once daily as needed (breakthrough pain (some days needs 5 pills instead of 4)). Do all this for 30 days. Ana Beatty December 30, 2024 12:10 PM [facility]02-17-[facility]25 NoteHNO ID: [id number] Author: KOKI MCKEON APRN.INSURANCE SALES AGENT Service: ? Author Type: Nurse Practitioner Type: Progress Notes Filed: 10/06/2024 11:30 Note Text: CC: Patient presents with: Follow Up HPI Moshe Zimmerman is a 69 year old male who presents today for above. Chronic low back pain secondary to DDD and lumbar stenosis. Taking hydrocodone 2 tabs twice a day, occasionally takes 1 tab extra for breakthrough pain. Typically needs to takes this a few times a week in the middle of the night. PAIN ASSESSMENT DOCUMENTATION TOOL (PADT TM) Analgesia: 0 is no pain. 10 is as bad as it can be. 1. What was your pain level on average during the past week? 4 2. What was your pain level at its worst during the past week? 8 3. Is the amount of pain relief you are now obtaining from your current pain reliever(s) enough to make a real difference in your life? yes Activities of Daily Living since the patient's last assessment 1. Physical functioning. same 2. Mood. same 3. Sleep patterns. same Adverse Events 1. Is patient experiencing any side effects from current pain reliever? a) Nausea None b) Vomiting None c) Constipation None d) Itching None e) Mental cloudiness None f) Sweating None g) Fatigue None h) Drowsiness None HTN-Medication changes:No Taking all medications as prescribed: Yes Side effects: No Home BP's: No Denies: headache, chest pain, palpitations, dyspnea, and peripheral edema. 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 Raynaud's syndrome Sciatica Tobacco abuse Urinary calculus, unspecified Renal stones--calcium oxalate PAST SURGICAL HISTORY Procedure Laterality Date CARDIAC CATHETERIZATION HX 07/04/2018 [facility]; LAD COLONOSCOPY W/BIOPSY SINGLE/MULTIPLE 05/27/2010 colonic irritation EGD TRANSORAL BIOPSY SINGLE/MULTIPLE 05/27/2010 duodenal ulcer LITHOTRIPSY / 1 SIDE [facility] 12/2020 Dr Raygoza NEPHROLITHOTOMY REMOVAL STAGE 1 multiple NEUROPLASTY AND/TRANSPOS MEDIAN NRV CARPAL TUNNE right Carpal tunnel decomp PAST SURGICAL HISTORY OF club foot repair as child PAST SURGICAL HISTORY OF 1998 discectomy, lumbar L5-S1 PAST SURGICAL HISTORY OF wisdom teeth ALLERGIES Brilinta [Ticagrelor], Lipitor [Atorvastatin Calcium], Lodine [Etodolac], and Wellbutrin [Bupropion Hcl] MEDICATIONS HYDROcodone-acetaminophen (NORCO) 5-325 mg per tablet Take 2 tablets by mouth two times a day. May also take 1 tablet once daily as needed (breakthrough pain (some days needs 5 pills instead of 4)). Do all this for 30 days. Patient should start on October 06, 2024. amLODIPine (NORVASC) 5 mg tablet Take 1 tablet by mouth every afternoon. albuterol HFA (VENTOLIN HFA) 90 mcg/actuation inhaler Inhale 2 Puffs as instructed every 4 hours as needed for wheezing/shortness of breath. gotmwjhxpak-pvpgftohq-jmeaiwts (TRELEGY ELLIPTA) 100-62.5-25 mcg inhalation powder Inhale 1 Puff as instructed once daily. Tadalafil (CIALIS) 20 mg tab(s) Take 1 tablet by mouth once daily. furosemide (LASIX) 20 mg tablet Take 1 tablet by mouth once daily as needed (fluid retention). ([facility]) metoprolol succinate ER (TOPROL XL) 25 mg 24 hr tablet Take 0.5 tablets by mouth twice daily. ([facility]) Cholecalciferol, Vitamin D3, 50 mcg (2,000 unit) cap Take 1 capsule by mouth once daily. losartan (COZAAR) 25 mg tablet Take 25 mg by mouth once daily. clopidogrel (PLAVIX) 75 mg tablet Take 75 mg by mouth once daily. rosuvastatin (CRESTOR) 5 mg tablet Take 20 mg by mouth once daily. aspirin, enteric coated (ASPIRIN, ENTERIC COATED) 81 mg EC tablet Take 81 mg by mouth once daily. MULTIVITAMIN ORAL DAILY HYDROcodone-acetaminophen (NORCO) 5-325 mg per tablet Take 2 tablets by mouth two times a day. May also take 1 tablet once daily as needed (breakthrough pain (some days needs 5 pills instead of 4)). Do all this for 30 days. Patient should start on August 07, 2024. HYDROcodone-acetaminophen (NORCO) 5-325 mg per tablet Take 2 tablets by mouth two times a day. May also take 1 tablet once daily as needed (breakthrough pain (some days needs 5 pills instead of 4)). Do all this for 30 days. Patient should start on September 06, 2024. HYDROcodone-acetaminophen (NORCO) 5-325 mg per tablet Take 2 tablets by mouth two times a day. May also take 1 tablet once daily as needed (breakthrough pain (some days needs 5 pills instead of 4)). Do all this for 30 days. Nicotine Polacrilex [address] 1 Lozenge between cheek and gum as needed. potassium chloride (KLOR-CON 10) 10 mEq tablet Take 1 tablet by mouth daily with break (more content not included)...[facility]02-17-2025 History of Present illness Narrative* Koki Mckeon, BUSINESS CHANGE MANAGER.INSURANCE SALES AGENT - 10/06/2024 10:48 AM EST CC: Patient presents with: Follow Up HPI Moshe Zimmerman is a 69 year old male who presents today for above. Chronic low back pain secondary to DDD and lumbar stenosis. Taking hydrocodone 2 tabs twice a day, occasionally takes 1 tab extra for breakthrough pain. Typically needs to takes this a few times a week in the middle of the night. PAIN ASSESSMENT DOCUMENTATION TOOL (PADT TM) Analgesia: 0 is no pain. 10 is as bad as it can be. 1. What was your pain level on average during the past week? 4 2. What was your pain level at its worst during the past week? 8 3. Is the amount of pain relief you are now obtaining from your current pain reliever(s) enough to make a real difference in your life? yes Activities of Daily Living since the patient's last assessment 1. Physical functioning. same 2. Mood. same 3. Sleep patterns. same Adverse Events 1. Is patient experiencing any side effects from current pain reliever? a) Nausea None b) Vomiting None c) Constipation None d) Itching None e) Mental cloudiness None f) Sweating None g) Fatigue None h) Drowsiness None HTN-Medication changes:No Taking all medications as prescribed: Yes Side effects: No Home BP's: No Denies: headache, chest pain, palpitations, dyspnea, and peripheral edema. 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 Raynaud's syndrome Sciatica Tobacco abuse Urinary calculus, unspecified Renal stones--calcium oxalate PAST SURGICAL HISTORY Procedure Laterality Date CARDIAC CATHETERIZATION HX 07/04/2018 [facility]; LAD COLONOSCOPY W/BIOPSY SINGLE/MULTIPLE 05/27/2010 colonic irritation EGD TRANSORAL BIOPSY SINGLE/MULTIPLE 05/27/2010 duodenal ulcer LITHOTRIPSY / 1 SIDE [facility] 12/2020 Dr Raygoza NEPHROLITHOTOMY REMOVAL STAGE 1 multiple NEUROPLASTY &/TRANSPOS MEDIAN NRV CARPAL TUNNE right Carpal tunnel decomp PAST SURGICAL HISTORY OF club foot repair as child PAST SURGICAL HISTORY OF 1998 discectomy, lumbar L5-S1 PAST SURGICAL HISTORY OF wisdom teeth ALLERGIES Brilinta [Ticagrelor], Lipitor [Atorvastatin Calcium], Lodine [Etodolac], and Wellbutrin [Bupropion Hcl] MEDICATIONS HYDROcodone-acetaminophen (NORCO) 5-325 mg per tablet Take 2 tablets by mouth two times a day. May also take 1 tablet once daily as needed (breakthrough pain (some days needs 5 pills instead of 4)). Do all this for 30 days. Patient should start on October 06, 2024. amLODIPine (NORVASC) 5 mg tablet Take 1 tablet by mouth every afternoon. albuterol HFA (VENTOLIN HFA) 90 mcg/actuation inhaler Inhale 2 Puffs as instructed every 4 hours asneeded for wheezing/shortness of breath. wzzllvpwmjg-yipufurun-xxetykym (TRELEGY ELLIPTA) 100-62.5-25 mcg inhalation powder Inhale 1 Puff asinstructed once daily. Tadalafil (CIALIS) 20 mg tab(s) Take 1 tablet by mouth once daily. furosemide (LASIX) 20 mg tablet Take 1 tablet by mouth once daily as needed (fluid retention). ([facility]) metoprolol succinate ER (TOPROL XL) 25 mg 24 hr tablet Take 0.5 tablets by mouth twice daily. ([facility]) Cholecalciferol, Vitamin D3, 50 mcg (2,000 unit) cap Take 1 capsule by mouth once daily. losartan (COZAAR) 25 mg tablet Take 25 mg by mouth once daily. clopidogrel (PLAVIX) 75 mg tablet Take 75 mg by mouth once daily. rosuvastatin (CRESTOR) 5 mg tablet Take 20 mg by mouth once daily. aspirin, enteric coated (ASPIRIN, ENTERIC COATED) 81 mg EC tablet Take 81 mg by mouth once daily. MULTIVITAMIN ORAL DAILY HYDROcodone-acetaminophen (NORCO) 5-325 mg per tablet Take 2 tablets by mouth two times a day. May also take 1 tablet once daily as needed (breakthrough pain (some days needs 5 pills instead of 4)). Do all this for 30 days. Patient should start on August 07, 2024. HYDROcodone-acetaminophen (NORCO) 5-325 mg per tablet Take 2 tablets by mouth two times a day. May also take 1 tablet once daily as needed (breakthrough pain (some days needs 5 pills instead of 4)). Do all this for 30 days. Patient should start on September 06, 2024. HYDROcodone-acetaminophen (NORCO) 5-325 mg per tablet Take 2 tablets by mouth two times a day. May also take 1 tablet once daily as needed (breakthrough pain (some days needs 5 pills instead of 4)). Do all this for 30 days. Nicotine Polacrilex [address] 1 Lozenge between cheek and gum as needed. potassium chloride (KLOR-CON 10) 10 mEq tablet Take 1 tablet by mouth daily with breakfast. ([facility]) FAMILY HISTORY Problem Relation Age of Onset Cancer Mother unknown primary Coronary Artery Disease Father None Other Social History Tobacco Use Smoking status: Some Days Current packs/day: 0.25 Average packs/day: 0.5 packs/day for 40.7 years (20.2 ttl pk-yrs) Types: Cigarettes Start date: 07/04/1978 Last attempt to quit: 07/04/2018 Smokeless tobacco: Current Types: Chew Tobacco comments: Not currently chewing tobacco Substance Use Topics Alcohol use: No Drug use: No BP 156/73 Pulse (!) 57 Resp 16 Wt 106 kg (233 lb 11 oz) BMI 33.06 kg/m Physical Exam Vitals reviewed. Constitutional: Appearance: Normal appearance. Cardiovascular: Rate and Rhythm: Normal rate and regular rhythm. Heart sounds: Normal heart sounds. Pulmonary: Effort: Pulmonary effort is normal. Breath sounds: Normal breath sounds. No wheezing, rhonchi or rales. Neurological: Mental Status: He is alert. Psychiatric: Mood and Affect: Mood and affect normal. Speech: Speech normal. Behavior: Behavior normal. Thought Content: Thought content normal. Health maintenance reviewed with patient: Abdominal Aortic Aneurysm Screening Never done Lung Cancer Screening due on 07/26/2021 Shingrix Vaccine(3 of 3) due on 11/28/2021 DTaP,Tdap,Td Vaccine(3 - Td or Tdap) due on 11/06/2022 BP Controlled (<130/80) due on 03/23/2024 Advance Directive Discussion due on 08/20/2024 Depression Screening due on 04/08/2025 Annual PCP Team Chronic Disease Visit due on 10/06/2025 Diabetes Screening due on 11/14/2026 Colorectal Cancer Screening due on 07/07/2027 Lipid Screening due on 11/14/2028 Prostate Cancer Screening Discussion due on 04/08/2029 RSV Vaccine(1 - 1-dose 75+ series) due on 02/04/2032 Influenza Vaccine Completed Pneumococcal Vaccine: 50+ Completed Hepatitis C Screening Discontinued Covid-19 Vaccine Discontinued DATA REVIEWED: Most recent labs ASSESSMENT/PLAN: 1. Chronic bilateral low back pain with bilateral sciatica - ICD9: 724.2, 724.3, 338.29, ICD10: M54.42, M54.41, G89.29 (primary diagnosis) - Prescribed Morphine Equivalent Daily Dose (MEDD): 20 - Controlled substance agreement updated. - Urine tox screen/pain panel reviewed, no aberrancies. Due for repeat tox screen Continue present regimen - Course of treatment, patient's response and adherence to the prescribed treatment plan reviewed, including non-pharmacological and non-opioid treatment modalities. Rationale for continuing opioid treatment: improved pain and function. Benefits of opioid therapy outweigh the risks. - Reviewed opioid side effects, required monitoring, controlled substance agreement, risks including accidental overdose, addiction and abuse with patient PDMP website checked and validated. All prescriptions have been APPROPRIATELY filled. No suspiciousactivity was identified. 10/06/2024 by Koki Mckeon, BUSINESS CHANGE MANAGER.INSURANCE SALES AGENT - HYDROCODONE 5 MG-ACETAMINOPHEN 325 MG TABLET - HYDROCODONE 5 MG-ACETAMINOPHEN 325 MG TABLET 2. DDD (degenerative disc disease), lumbar - ICD9: 722.52, ICD10: M51.369 As above - HYDROCODONE 5 MG-ACETAMINOPHEN 325 MG TABLET - HYDROCODONE 5 MG-ACETAMINOPHEN 325 MG TABLET 3. Lumbar stenosis with neurogenic claudication - ICD9: 724.03, ICD10: M48.062 As above - HYDROCODONE 5 MG-ACETAMINOPHEN 325 MG TABLET - HYDROCODONE 5 MG-ACETAMINOPHEN 325 MG TABLET 4. Essential (primary) hypertension - ICD9: 401.9, ICD10: I10 - Controlled - Continue current medications - Recommend home blood pressure monitoring, to bring results to next visit - Encouraged sodium restriction, DASH or Mediterranean diet - COMPLETE BLOOD COUNT 5. Mixed hyperlipidemia - ICD9: 272.2, ICD10: E78.2 Controlled undetermined, due for labs - Continue current medications - LIPID PANEL BASIC - COMPREHENSIVE METABOLIC PANEL 6. Impaired glucose metabolism - ICD9: 790.29, ICD10: R73.09 recheck - HEMOGLOBIN A1C 7. High risk medication use - ICD9: V58.69, ICD10: Z79.899 - TOXICOLOGY SCREEN, ROUTINE URINE 8. Encounter for drug screening - ICD9: V72.85, ICD10: Z02.83 - TOXICOLOGY SCREEN, ROUTINE URINE Prescription instructions reviewed with patient as applicable. Potential red flag symptoms discussed with the patient. Reviewed appropriate action plan to take if red flag symptoms occur. Patient agreeable to treatment plan. Koki Mckeon APRN.CNP Medical Decision Making: Problems: Moderate: 2+ stable chronic illnesses Data: Unique test result(s) reviewed: 2 Unique test(s) ordered: 2 Risk: Moderate: Moderate risk from testing/treatment and Drug management Medical Decision Making Level: 4 - Moderate [facility] Instructions* Patient Instructions* Abel Pablo MD - 07/11/2024 3:09 PM EST - Continue taking current medications as prescribed. - Next hydrocodone prescription will be due on September 06. - Monitor for Cologuard results in [employer]; if no results are received within the next two weeks, contact the office. - Get a flu shot today before leaving the clinic. - Schedule and complete RSV, tetanus, and shingles vaccines at the pharmacy. - Consider scheduling a lung cancer screening CT scan through [employer]. - Maintain current diet and exercise regimen to continue weight management and blood pressure control. - Next appointment is in September; no labs are required before this visit. [facility]11[facility] History of Present illness Narrative* Abel Pablo MD - 07/11/2024 2:00 PM EST This note was created using Linq3ter. Subjective Moshe Zimmerman is a 69 year old male. Patient presents with: F/U 3 Month SUBJECTIVE: Moshe Zimmerman is a 69 year old year old gentleman here today for 3 month follow up appointment forreview of medical conditions. Moshe Zimmerman is a 69-year-old male with a history of CAD, presenting for a routine 3-month follow-up. Moshe reports a recent episode of acute anterior hip pain that began upon waking one morning. The pain was sharp and severe, causing significant difficulty with ambulation. He speculates that the pain may have been due to sleeping on his side on a firm mattress, which he uses for back support. The pain persisted for approximately one week before gradually improving. During this time, he forced himself to walk, which he believes contributed to the improvement. He denies any recent trauma or injury to the hip. Moshe also reports a laceration sustained at work yesterday, which he managed with butterfly closures. He denies any other injuries or complications from the laceration. He is currently taking hydrocodone for pain management and reports that it is effective in maintaining his functionality. He recently filled his prescription on the . He also uses an albuterol inhaler at night, which he reports helps clear his lungs. He has been advised to start Trelegy but is waiting until the first of the year due to the cost associated with his deductible. Moshe has been making dietary changes, including portion control and increasing his intake of salads and celery, while avoiding fast food. He reports a gradual decrease in weight as a result of thesechanges. He received a flu shot last year and is willing to receive one today. He is up to date on his pneumonia vaccine, with the last dose received in 2021. He has not yet received the RSV, tetanus, or shingles vaccines, which are available at the pharmacy. He has completed the Cologuard test twice, with the first sample being insufficient for DNA extraction. The second sample was received on July 08 and is currently being processed. 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 May also take 1 tablet once daily as needed (breakthrough pain (some days needs 5 pills instead of 4)). Do all this for 30 days. HYDROcodone-acetaminophen (NORCO) 5-325 mg per tablet Take 2 tablets by mouth two times a day. May also take 1 tablet once daily as needed (breakthrough pain (some days needs 5 pills instead of 4)). Do all this for 30 days. amLODIPine (NORVASC) 5 mg tablet Take 1 tablet by mouth every afternoon. HYDROcodone-acetaminophen (NORCO) 5-325 mg per tablet Take 2 tablets by mouth two times a day. May also take 1 tablet once daily as needed (breakthrough pain (some days needs 5 pills instead of 4)). Do all this for 30 days. Patient should start on May 09, 2024. albuterol HFA (VENTOLIN HFA) 90 mcg/actuation inhaler Inhale 2 Puffs as instructed every 4 hours asneeded for wheezing/shortness of breath. sjrufefiqbv-iuddufont-geixqouj (TRELEGY ELLIPTA) 100-62.5-25 mcg inhalation powder Inhale 1 Puff asinstructed once daily. HYDROcodone-acetaminophen (NORCO) 5-325 mg per tablet Take 2 tablets by mouth two times a day. May also take 1 tablet once daily as needed (breakthrough pain (some days needs 5 pills instead of 4)). Do all this for 30 days. Nicotine Polacrilex [address] 1 Lozenge between cheek and gum as needed. (Patient not taking: Reported on 04/08/2024) Tadalafil (CIALIS) 20 mg tab(s) Take 1 tablet by mouth once daily. furosemide (LASIX) 20 mg tablet Take 1 tablet by mouth once daily as needed (fluid retention). ([facility]) (Patient taking differently: Take 20 mg by mouth once daily as needed (fluid retention). ([facility]) PRN-only when BEN feet swell) metoprolol succinate ER (TOPROL XL) 25 mg 24 hr tablet Take 0.5 tablets by mouth twice daily. ([facility]) potassium chloride (KLOR-CON 10) 10 mEq tablet Take 1 tablet by mouth daily with breakfast. ([facility]) (Patient not taking: Reported on 04/08/2024) Cholecalciferol, Vitamin D3, 50 mcg (2,000 unit) cap Take 1 capsule by mouth once daily. losartan (COZAAR) 25 mg tablet Take 25 mg by mouth once daily. clopidogrel (PLAVIX) 75 mg tablet Take 75 mg by mouth once daily. rosuvastatin (CRESTOR) 5 mg tablet Take 20 mg by mouth once daily. aspirin, enteric coated (ASPIRIN, ENTERIC COATED) 81 mg EC tablet Take 81 mg by mouth once daily. MULTIVITAMIN ORAL DAILY No current facility-administered medications for this visit. Review of Systems Objective BP 134/68 Pulse 66 Resp 16 Wt 104 kg (229 lb 4.5 oz) BMI 32.43 kg/m Last 5 Encounter Wt Readings: Date: Wt: 07/11/2024 104 kg (229 lb 4.5 oz) 04/08/2024 105.1 kg (231 lb 11.3 oz) 12/31/2023 107.5 kg (237 lb) 03/23/2023 107.5 kg (237 lb) 12/25/2022 109.6 kg (241 lb 11.2 oz) No waist measurement recorded Estimated body mass index is 32.43 kg/m as calculated from the following: Height as of 01/19/17: 179.1 cm (5' 10.5). Weight as of this encounter: 104 kg (229 lb 4.5 oz). Last 5 Encounter BP Readings: Date: BP: 07/11/2024 134/68 04/08/2024 124/68 12/31/2023 138/78 06/22/2023 134/78 03/23/2023 126/70 07/11/24 1405 07/11/24 1501 BP: 134/68 130/68 Pulse: 66 Resp: 16 Weight: 104 kg (229 lb 4.5 oz) Physical Exam Vitals reviewed. Constitutional: Appearance: Normal appearance. Eyes: Conjunctiva/sclera: Conjunctivae normal. Cardiovascular: Rate and Rhythm: Normal rate and regular rhythm. Heart sounds: Normal heart sounds. Pulmonary: Effort: Pulmonary effort is normal. Breath sounds: Normal breath sounds. Musculoskeletal: Right lower leg: No edema. Left lower leg: No edema. Skin: General: Skin is warm and dry. Neurological: General: No focal deficit present. Mental Status: He is alert and oriented to person, place, and time. Psychiatric: Mood and Affect: Mood normal. Behavior: Behavior normal. Thought Content: Thought content normal. Judgment: Judgment normal. Assessment and Plan # Chronic bilateral low back pain with bilateral sciatica (M54.42) # DDD (degenerative disc disease), lumbar (M51.369) # Lumbar stenosis with neurogenic claudication (M48.062) - Conditions are stable on current medication regimen, including hydrocodone, which was refilled on08/07 and is due for the next refill on 09/06. - Discussed recent episode of acute left hip pain, likely due to nerve impingement or muscle strainfrom sleeping position; symptoms have improved with ambulation. - Continue current pain management plan. # Essential (primary) hypertension (I10) - Blood pressure readings today: 134/60 mmHg and 129/68 mmHg, showing improvement from previous readings in the 140s. - Continue current antihypertensive regimen. - Advised to maintain dietary modifications, including portion control and increased intake of salads and vegetables. # Pain of left hip (M25.552) - Recent acute episode of sharp anterior hip pain, likely secondary to nerve impingement or muscle strain from sleeping position; symptoms have improved with ambulation. - Continue current pain management plan. # Encounter for immunization (Z23) - Administered influenza vaccine. - Patient is up to date on pneumococcal vaccination (Prevnar 20 in 2021). - Advised to obtain RSV, tetanus, and shingles vaccines at the pharmacy. Abel Pablo MD [facility] NoteHNO ID: [id number] Author: ABEL PABLO MD Service: ? Author Type: Physician Type: Progress Notes Filed: 07/29/2024 08:46 Note Text: This note was created using FilmTrackriter. Subjective Moshe Zimmerman is a 69 year old male. Patient presents with: F/U 3 Month SUBJECTIVE: Moshe Zimmerman is a 69 year old year old gentleman here today for 3 month follow up appointment for review of medical conditions. Moshe Zimmerman is a 69-year-old male with a history of CAD, presenting for a routine 3-month follow-up. Moshe reports a recent episode of acute anterior hip pain that began upon waking one morning. The pain was sharp and severe, causing significant difficulty with ambulation. He speculates that the pain may have been due to sleeping on his side on a firm mattress, which he uses for back support. The pain persisted for approximately one week before gradually improving. During this time, he forced himself to walk, which he believes contributed to the improvement. He denies any recent trauma or injury to the hip. Moshe also reports a laceration sustained at work yesterday, which he managed with butterfly closures. He denies any other injuries or complications from the laceration. He is currently taking hydrocodone for pain management and reports that it is effective in maintaining his functionality. He recently filled his prescription on the . He also uses an albuterol inhaler at night, which he reports helps clear his lungs. He has been advised to start Trelegy but is waiting until the first of the year due to the cost associated with his deductible. Moshe has been making dietary changes, including portion control and increasing his intake of salads and celery, while avoiding fast food. He reports a gradual decrease in weight as a result of these changes. He received a flu shot last year and is willing to receive one today. He is up to date on his pneumonia vaccine, with the last dose received in 2021. He has not yet received the RSV, tetanus, or shingles vaccines, which are available at the pharmacy. He has completed the Cologuard test twice, with the first sample being insufficient for DNA extraction. The second sample was received on July 08 and is currently being processed. 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 May also take 1 tablet once daily as needed (breakthrough pain (some days needs 5 pills instead of 4)). Do all this for 30 days. HYDROcodone-acetaminophen (NORCO) 5-325 mg per tablet Take 2 tablets by mouth two times a day. May also take 1 tablet once daily as needed (breakthrough pain (some days needs 5 pills instead of 4)). Do all this for 30 days. amLODIPine (NORVASC) 5 mg tablet Take 1 tablet by mouth every afternoon. HYDROcodone-acetaminophen (NORCO) 5-325 mg per tablet Take 2 tablets by mouth two times a day. May also take 1 tablet once daily as needed (breakthrough pain (some days needs 5 pills instead of 4)). Do all this for 30 days. Patient should start on May 09, 2024. albuterol HFA (VENTOLIN HFA) 90 mcg/actuation inhaler Inhale 2 Puffs as instructed every 4 hours as needed for wheezing/shortness of breath. tevyguhhalh-lfepfjada-kqvydkwb (TRELEGY ELLIPTA) 100-62.5-25 mcg inhalation powder Inhale 1 Puff as instructed once daily. HYDROcodone-acetaminophen (NORCO) 5-325 mg per tablet Take 2 tablets by mouth two times a day. May also take 1 tablet once daily as needed (breakthrough pain (some days needs 5 pills instead of 4)). Do all this for 30 days. Nicotine Polacrilex [address] 1 Lozenge between cheek and gum as needed. (Patient not taking: Reported on 04/08/2024) Tadalafil (CIALIS) 20 mg tab(s) Take 1 tablet by mouth once daily. furosemide (LASIX) 20 mg tablet Take 1 tablet by mouth once daily as needed (fluid retention). ([facility]) (Patient taking differently: Take 20 mg by mouth once daily as needed (fluid retention). ([facility]) PRN-only when BEN feet swell) metoprolol succinate ER (TOPROL XL) 25 mg 24 hr tablet Take 0.5 tablets by mouth twice daily. ([facility]) potassium chloride (KLOR-CON 10) 10 mEq tablet Take 1 tablet by mouth daily with breakfast. ([facility]) (Patient not taking: Reported on 04/08/2024) Cholecalciferol, Vitamin D3, 50 mcg (2,000 unit) cap Take 1 capsule by mouth once daily. losartan (COZAAR) 25 mg tablet Take 25 mg by mouth once daily. clopidogrel (PLAVIX) 75 mg tablet Take 75 mg by (more content not included)... [facility]-19-[facility] Telephone encounter Note* Telephone Encounter - Abel Pablo MD - 07/08/2024 8:15 AM EST The following approved medication requests have been transmitted electronically. Requested Prescriptions Signed Prescriptions Disp Refills HYDROcodone-acetaminophen (NORCO) 5-325 mg per tablet 140 tablet 0 Sig: Take 2 tablets by mouth two times a day. May also take 1 tablet once daily as needed (breakthrough pain (some days needs 5 pills instead of 4)). Do all this for 30 days. Authorizing Provider: ABEL PABLO MD [facility]11-19-2024 Miscellaneous Notes* Telephone Encounter - Abel Pablo MD - 07/08/2024 8:15 AM EST The following approved medication requests have been transmitted electronically. Requested Prescriptions Signed Prescriptions Disp Refills HYDROcodone-acetaminophen (NORCO) 5-325 mg per tablet 140 tablet 0 Sig: Take 2 tablets by mouth two times a day. May also take 1 tablet once daily as needed (breakthrough pain (some days needs 5 pills instead of 4)). Do all this for 30 days. Authorizing Provider: ABEL PABLO MD * Telephone Encounter - Dahlia Sifuentes - 07/04/2024 12:41 PM EST Prescription Refill Information The patient has been identified by name and date of : Yes Caregiver verified no other encounters exist for this prescription request: Yes Caregiver confirmed with patient/requestor that no other refills are due, in the near future, with this provider at this time: Yes The last office visit in the department: 04/08/24 Does the patient have a future office visit with this provider/department: Yes Requested Prescriptions Pending Prescriptions Disp Refills HYDROcodone-acetaminophen (NORCO) 5-325 mg per tablet 140 tablet 0 Sig: Take 2 tablets by mouth two times a day. May also take 1 tablet once daily as needed (breakthrough pain (some days needs 5 pills instead of 4)). Do all this for 30 days. Dahlia Shelton Jaci July 04, 2024 12:42 PM [facility] Telephone encounter Note * Telephone Encounter - Dahlia Sifuentes - 07/04/2024 12:41 PM EST Prescription Refill Information The patient has been identified by name and date of : Yes Caregiver verified no other encounters exist for this prescription request: Yes Caregiver confirmed with patient/requestor that no other refills are due, in the near future, with this provider at this time: Yes The last office visit in the department: 04/08/24 Does the patient have a future office visit with this provider/department: Yes Requested Prescriptions Pending Prescriptions Disp Refills HYDROcodone-acetaminophen (NORCO) 5-325 mg per tablet 140 tablet 0 Sig: Take 2 tablets by mouth two times a day. May also take 1 tablet once daily as needed (breakthrough pain (some days needs 5 pills instead of 4)). Do all this for 30 days. Dahlia Shelton Jaci July 04, 2024 12:42 PM [facility]08-21-[facility] Telephone encounter Note* Telephone Encounter - Abel Pablo MD - 04/09/2024 7:14 PM EDT The following approved medication requests have been transmitted electronically. Requested Prescriptions Signed Prescriptions Disp Refills HYDROcodone-acetaminophen (NORCO) 5-325 mg per tablet 140 tablet 0 Sig: Take 2 tablets by mouth two times a day. May also take 1 tablet once daily as needed (breakthrough pain (some days needs 5 pills instead of 4)). Do all this for 30 days. Authorizing Provider: ABEL PABLO MD [facility]08-21-2024 Miscellaneous Notes* Telephone Encounter - Abel Pablo MD - 04/09/2024 7:14 PM EDT The following approved medication requests have been transmitted electronically. Requested Prescriptions Signed Prescriptions Disp Refills HYDROcodone-acetaminophen (NORCO) 5-325 mg per tablet 140 tablet 0 Sig: Take 2 tablets by mouth two times a day. May also take 1 tablet once daily as needed (breakthrough pain (some days needs 5 pills instead of 4)). Do all this for 30 days. Authorizing Provider: ABEL PABLO MD * Telephone Encounter - Munira Molina RN - 04/09/2024 11:48 AM EDT Patient calls to report that [facility] is out of [facility]one but he contacted [facility] and they have it in stock. Requesting prescription to be sent there. Pended per request. Munira Molina RN documented [facility]08-[facility]24 Telephone encounter Note * Telephone Encounter - Munira Molina RN - 04/09/2024 11:48 AM EDT Patient calls to report that [facility] is out of [facility] but he contacted [facility] and [facility] have it in stock. Requesting prescription to be sent there. Pended per request. Munira Molina RN [facility]08-20-2024 Instructions* Patient Instructions* Abel Pablo MD - 04/08/2024 5:22 PM EDT - Norvasc has been added to your medications by cardiology to help manage your blood pressure. Monitor for any changes in leg swelling and inform us if it becomes severe. - Continue working on quitting smoking. - Hydrocodone refill has been sent to your pharmacy. - Trelegy has been added to your medications to see if it helps with wheezing. - Ventolin (albuterol) has been prescribed for as-needed use if Trelegy isn't keeping symptoms under control, or if you experience more cough, wheezing, or shortness of breath, especially with exertion. - Your eye screening will be done today. You can see the eye doctor if needed. - Your next labs will be ordered next year, as your last labs were in October and everything is stable. Screening schedule The following prevention plan is recommended: Abdominal Aortic Aneurysm Screening Done--will udpate HM record RSV Vaccine(1 - 1-dose 60+ series) Never done Lung Cancer Screening due on 07/26/2021 Shingrix Vaccine(3 of 3) due on 11/28/2021 DTaP,Tdap,Td Vaccine(3 - Td or Tdap) due on 11/06/2022 Advance Directive Discussion due on 08/20/2023 Colorectal Cancer Screening due on 10/07/2023 WHAT YOU CAN DO TO PREVENT FALLS Many falls can be prevented. By making some changes, you can lower your chances of falling. Four things YOU can do to prevent falls for you* and your caregiver 1. Begin a regular exercise program Exercise is one of the most important ways to lower your chances of falling. It makes you stronger and helps you feel better. Exercises that improve balance and coordination (like [employer] Chi) are the most helpful. Lack of exercise leads to weakness and increases your chances of falling. Ask your doctor or health care provider about the best type of exercise program for you. 2. Have your health care provider review your medicines Have your doctor or pharmacist review all the medicines you take, even zzkt-jzj-rmmlgqz medicines. As you get older, the way medicines work in your body can change. Some medicines, or combinations of medicines, can make you sleepy or dizzy andcan cause you to fall. 3. Have your vision checked Have your eyes checked by an eye doctor at least once a year. You may be wearing the wrong glasses or have a condition like glaucoma or cataracts that limits your vision. Poor vision can increase your chances of falling. 4. Make your home safer About half of all falls happen at home. To make your home safer: Remove things you can trip over (like papers, books, clothes, and shoes) from stairs and places where you walk. Remove small throw rugs or use double-sided tape to keep the rugs from slipping. Keep items you use often in cabinets you can reach easily without using a step stool. Have grab bars put in next to your toilet and in the tub or shower. Use non-slip mats in the bathtub and on shower floors. Improve the lighting in your home. As you get older, you need brighter lights to see well. Hang light-weight curtains or shades to reduce glare. Have handrails and lights put in on all staircases. Wear shoes both inside and outside the house. Avoid going barefoot or wearing slippers. For more information, contact: Centers for Disease Control and Prevention www.cdc.gov/injury * This information may not apply if you have certain medical conditions. documented [facility]08-[facility]-2024 NoteHNO ID: [id number] Author: ABEL PABLO MD Service: ? Author Type: Physician Type: Progress Notes Filed: 05/22/2024 23:20 Note Text: This note was created using FilmTrackriter. Subjective Moshe Zimmerman is a 69 year old male. Patient presents with: F/U 3 Month SUBJECTIVE: Moshe Zimmerman is a 69 year old year old gentleman here today for 3 month follow up appointment for review of medical conditions. Pain meds effective. No adverse effects. COPD eval and treated befroe but SOB turned out to be from needing a stent. Medicare Wellness done today also since [employer] keeps calling. Meds adjusted by cardiology--Noravas added. BP better but has leg swelling--not severe. Did start smoking more a couple months ago due to stress. 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 HYDROcodone-acetaminophen (NORCO) 5-325 mg per tablet Take 2 tablets by mouth two times a day. May also take 1 tablet once daily as needed (breakthrough pain (some days needs 5 pills instead of 4)). Do all this for 30 days. Tadalafil (CIALIS) 20 mg tab(s) Take 1 tablet by mouth once daily. furosemide (LASIX) 20 mg tablet Take 1 tablet by mouth once daily as needed (fluid retention). ([facility]) (Patient taking differently: Take 20 mg by mouth once daily as needed (fluid retention). ([facility]) PRN-only when BEN feet swell) metoprolol succinate ER (TOPROL XL) 25 mg 24 hr tablet Take 0.5 tablets by mouth twice daily. ([facility]) Cholecalciferol, Vitamin D3, 50 mcg (2,000 unit) cap Take 1 capsule by mouth once daily. losartan (COZAAR) 25 mg tablet Take 25 mg by mouth once daily. clopidogrel (PLAVIX) 75 mg tablet Take 75 mg by mouth once daily. rosuvastatin (CRESTOR) 5 mg tablet Take 20 mg by mouth once daily. aspirin, enteric coated (ASPIRIN, ENTERIC COATED) 81 mg EC tablet Take 81 mg by mouth once daily. MULTIVITAMIN ORAL DAILY [START ON 04/09/2024] HYDROcodone-acetaminophen (NORCO) 5-325 mg per tablet Take 2 tablets by mouth two times a day. May also take 1 tablet once daily as needed (breakthrough pain (some days needs 5 pills instead of 4)). Do all this for 30 days. Patient should start on April 09, 2024. [START ON 05/09/2024] HYDROcodone-acetaminophen (NORCO) 5-325 mg per tablet Take 2 tablets by mouth two times a day. May also take 1 tablet once daily as needed (breakthrough pain (some days needs 5 pills instead of 4)). Do all this for 30 days. Patient should start on May 09, 2024. [START ON 06/08/2024] HYDROcodone-acetaminophen (NORCO) 5-325 mg per tablet Take 2 tablets by mouth two times a day. May also take 1 tablet once daily as needed (breakthrough pain (some days needs 5 pills instead of 4)). Do all this for 30 days. Patient should start on June 08, 2024. Nicotine Polacrilex [address] 1 Lozenge between cheek and gum as needed. (Patient not taking: Reported on 04/08/2024) potassium chloride (KLOR-CON 10) 10 mEq tablet Take 1 tablet by mouth daily with breakfast. ([facility]) (Patient not taking: Reported on 04/08/2024) No current facility-administered medications for this visit. Review of Systems Objective BP 124/68 Pulse 71 Temp 36.7 ?C (98.1 ?F) Resp 16 Wt 105.1 kg (231 lb 11.3 oz) SpO2 98% BMI 32.78 kg/m? Last 5 Encounter Wt Readings: Date: Wt: 04/08/2024 105.1 kg (231 lb 11.3 oz) 12/31/2023 107.5 kg (237 lb) 03/23/2023 107.5 kg (237 lb) 12/25/2022 109.6 kg (241 lb 11.2 oz) 09/25/2022 109.3 kg (241 lb) No waist measurement recorded Estimated body mass index is 32.78 kg/m? as calculated from the following: Height as of 01/19/17: 179.1 cm (5' 10.5). Weight as of this encounter: 105.1 kg (231 lb 11.3 oz). Last 5 Encounter BP Readings: Date: BP: 04/08/2024 124/68 12/31/2023 138/78 06/22/2023 134/78 03/23/2023 126/70 12/25/2022 138/82 Physical Exam Vitals reviewed. Constitutional: Appearance: Normal appearance. HENT: Head: Normocephalic. Right Ear: Tympanic membrane, ear canal and external ear normal. Left Ear: Tympanic membrane, ear canal and external ear normal. Mouth/Throat: Mouth: Mucous membranes are moist. Pharynx: Oropharynx is clear. Eyes: Extraocular Movements: Extraocular movements intact. Conjunctiva/sclera: Conjunctivae normal. Neck: Thyroid: Thyromegaly present. Vascular: No carotid bruit. Cardiovascular: Rate and Rhythm: Normal rate and regular rhythm. Pulses: Nor (more content not included)...[facility]08-20-[facility] History of Present illness Narrative* Abel Pablo MD - 04/08/2024 4:54 PM EDT Images from the original note were not included. This note was created using Linq3ter. Subjective Moshe Zimmerman is a 69 year old male. Patient presents with: F/U 3 Month SUBJECTIVE: Moshe Zimmerman is a 69 year old year old gentleman here today for 3 month follow up appointment forreview of medical conditions. Pain meds effective. No adverse effects. COPD eval and treated befroe but SOB turned out to be from needing a stent. Medicare Wellness done today also since [employer] keeps calling. Meds adjusted by cardiology--Noravas added. BP better but has leg swelling--not severe. Did start smoking more a couple months ago due to stress. 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 HYDROcodone-acetaminophen (NORCO) 5-325 mg per tablet Take 2 tablets by mouth two times a day. May also take 1 tablet once daily as needed (breakthrough pain (some days needs 5 pills instead of 4)). Do all this for 30 days. Tadalafil (CIALIS) 20 mg tab(s) Take 1 tablet by mouth once daily. furosemide (LASIX) 20 mg tablet Take 1 tablet by mouth once daily as needed (fluid retention). ([facility]) (Patient taking differently: Take 20 mg by mouth once daily as needed (fluid retention). ([facility]) PRN-only when BEN feet swell) metoprolol succinate ER (TOPROL XL) 25 mg 24 hr tablet Take 0.5 tablets by mouth twice daily. ([facility]) Cholecalciferol, Vitamin D3, 50 mcg (2,000 unit) cap Take 1 capsule by mouth once daily. losartan (COZAAR) 25 mg tablet Take 25 mg by mouth once daily. clopidogrel (PLAVIX) 75 mg tablet Take 75 mg by mouth once daily. rosuvastatin (CRESTOR) 5 mg tablet Take 20 mg by mouth once daily. aspirin, enteric coated (ASPIRIN, ENTERIC COATED) 81 mg EC tablet Take 81 mg by mouth once daily. MULTIVITAMIN ORAL DAILY [START ON 04/09/2024] HYDROcodone-acetaminophen (NORCO) 5-325 mg per tablet Take 2 tablets by mouth two times a day. May also take 1 tablet once daily as needed (breakthrough pain (some days needs 5 pills instead of 4)). Do all this for 30 days. Patient should start on April 09, 2024. [START ON 05/09/2024] HYDROcodone-acetaminophen (NORCO) 5-325 mg per tablet Take 2 tablets by mouth two times a day. May also take 1 tablet once daily as needed (breakthrough pain (some days needs 5 pills instead of 4)). Do all this for 30 days. Patient should start on May 09, 2024. [START ON 06/08/2024] HYDROcodone-acetaminophen (NORCO) 5-325 mg per tablet Take 2 tablets by mouthtwo times a day. May also take 1 tablet once daily as needed (breakthrough pain (some days needs 5 pills instead of 4)). Do all this for 30 days. Patient should start on June 08, 2024. Nicotine Polacrilex [address] 1 Lozenge between cheek and gum as needed. (Patient not taking: Reported on 04/08/2024) potassium chloride (KLOR-CON 10) 10 mEq tablet Take 1 tablet by mouth daily with breakfast. ([facility]) (Patient not taking: Reported on 04/08/2024) No current facility-administered medications for this visit. Review of Systems Objective BP 124/68 Pulse 71 Temp 36.7 C (98.1 F) Resp 16 Wt 105.1 kg (231 lb 11.3 oz) SpO2 98% BMI 32.78 kg/m Last 5 Encounter Wt Readings: Date: Wt: 04/08/2024 105.1 kg (231 lb 11.3 oz) 12/31/2023 107.5 kg (237 lb) 03/23/2023 107.5 kg (237 lb) 12/25/2022 109.6 kg (241 lb 11.2 oz) 09/25/2022 109.3 kg (241 lb) No waist measurement recorded Estimated body mass index is 32.78 kg/m as calculated from the following: Height as of 01/19/17: 179.1 cm (5' 10.5). Weight as of this encounter: 105.1 kg (231 lb 11.3 oz). Last 5 Encounter BP Readings: Date: BP: 04/08/2024 124/68 12/31/2023 138/78 06/22/2023 134/78 03/23/2023 126/70 12/25/2022 138/82 Physical Exam Vitals reviewed. Constitutional: Appearance: Normal appearance. HENT: Head: Normocephalic. Right Ear: Tympanic membrane, ear canal and external ear normal. Left Ear: Tympanic membrane, ear canal and external ear normal. Mouth/Throat: Mouth: Mucous membranes are moist. Pharynx: Oropharynx is clear. Eyes: Extraocular Movements: Extraocular movements intact. Conjunctiva/sclera: Conjunctivae normal. Neck: Thyroid: Thyromegaly present. Vascular: No carotid bruit. Cardiovascular: Rate and Rhythm: Normal rate and regular rhythm. Pulses: Normal pulses. Heart sounds: Normal heart sounds. Pulmonary: Effort: Pulmonary effort is normal. Breath sounds: Wheezing present. Abdominal: General: Abdomen is flat. There is no distension. Palpations: Abdomen is soft. There is no mass. Musculoskeletal: Cervical back: Normal range of motion. Right lower le+ Pitting Edema present. Left lower le+ Pitting Edema present. Skin: General: Skin is warm and dry. Neurological: General: No focal deficit present. Mental Status: He is alert and oriented to person, place, and time. Psychiatric: Attention and Perception: Attention and perception normal. Mood and Affect: Mood and affect normal. Speech: Speech normal. Behavior: Behavior normal. Thought Content: Thought content normal. Cognition and Memory: Cognition and memory normal. Judgment: Judgment normal. Assessment and Plan--See below. Moshe Zimmerman is a 69 year old male here for a Medicare wellness visit. Medicare Health Risk Assessment General Health Very good Exercise: Minutes/Day 30 min Exercise: Days/Week 4 days Alcohol: Daily Use Monthly or less Alcohol: Drinks/Day 1 or 2 Alcohol: 6 or more drinks Never Feel off balance No Concerns: Teeth/Dentures No Concerns: Sexual function Yes (Cialis effective) Troubled by feelings None of the above Frequency: Eating healthy diet More than half the days ADLs requiring help None of the above Safety precautions in home/vehicle Yes Smoke, vape, chews tobacco Yes, and I might quit Difficulty hearing No Difficulty seeing No Current Providers Specialists: I have reviewed specialist-related care of the patient in the medical record. Outside specialists seen: Dr. Elias/Bonilla Lew ([facility]) Medical/Family history review Reviewed and updated problem list, medical/surgical/family/social history, medications, and allergies. Opioid use review Opioid Medications (last 90 days) 03/06/2024 00:00 03/10/2024 00:00 04/08/2024 23:59 Opioid Medications hydrocodone/acetaminophen Take 2 tablets by mouth two times a day. May also take 1 tablet once daily as needed (breakthrough pain (some days needs 5 pills instead of 4)). Do all this for 30 days. Do not start before December 07, 2023. (5- 325 mg tab) Take 2 tablets by mouth two times a day. May also take 1 tablet once daily as needed (breakthrough pain (some days needs 5 pills instead of 4)). Do all this for 30 days. Do not start before December 07, 2023. (5-325 mg tab) Take 2 tablets by mouth two times a day. May also take 1 tablet once daily as needed (breakthrough pain (some days needs 5 pills instead of 4)). Do all this for 30 days. Do not start before December 07, 2023. (5-325 mg tab)-Discontinued hydrocodone/acetaminophen Take 2 tablets by mouth two times a day. May also take 1 tablet once daily as needed (breakthrough pain (some days needs 5 pills instead of 4)). Do all this for 30 days. (5-325 mg tab) Take 2 tablets by mouth two times a day. May also take 1 tablet once daily as needed (breakthrough pain (some days needs 5 pills instead of 4)). Do all this for 30 days. (5-325 mg tab) Take 2 tablets by mouth two times a day. May also take 1 tablet once daily as needed (breakthrough pain(some days needs 5 pills instead of 4)). Do all this for 30 days. (5-325 mg tab)-Discontinued hydrocodone/acetaminophen Take 2 tablets by mouth two times a day. May also take 1 tablet once daily as needed (breakthrough pain (some days needs 5 pills instead of 4)). Do all this for 30 days. Do not start before February 09, 2024. (5- 325 mg tab) Take 2 tablets by mouth two times a day. May also take 1 tablet once daily as needed (breakthrough pain (some days needs 5 pills instead of 4)). Do all this for 30 days. Do not start before February 09, 2024. (5-325 mg tab) Take 2 tablets by mouth two timesa day. May also take 1 tablet once daily as needed (breakthrough pain (some days needs 5 pills instead of 4)). Do all this for 30 days. Do not start before February 09, 2024. (5-325 mg tab)-Discontinued hydrocodone/acetaminophen Take 2 tablets by mouth two times a day. May also take 1 tablet once daily as needed (breakthrough pain (some days needs 5 pills instead of 4)). Do all this for 30 days. Do not start before March 06, 2024. (5- 325 mg tab) Take 2 tablets by mouth two times a day. May also take 1 tablet once daily as needed (breakthrough pain (some days needs 5 pills instead of 4)). Do all this for 30 days. Do not start before March 06, 2024. (5-325 mg tab)-Discontinued hydrocodone/acetaminophen Take 2 tablets by mouth two times a day. May also take 1 tablet once daily as needed (breakthrough pain (some days needs 5 pills instead of 4)). Do all this for 30 days. (5-325 mg tab) Take 2 tablets by mouth two times a day. May also take 1 tablet once daily as needed (breakthrough pain (some days needs 5 pills instead of 4)). Do all this for 30 days. (5-325 mg tab) Details Outpatient prescription Medication marked as long-term Prescribed hydrocodone/acetaminophen (last 90 days) Does patient have risk factors for opioid abuse? No Pain overview Pain Scales: Verbal (Numeric Rating or Visual Analog Scale) Pain Level: 5 Pain Location: Other: See Comment (lower back into bilateral legs) Description: Dull, Aching Duration Amount of Time: 35 Duration Units: Years Frequency: Intermittent Intervention/Comfort measure: Medication, Heat Comments: Medication and hot bach help with sleep Current pain concerns and treatment plan reviewed. Patient stable on current treatment plan. Anxiety/Depression screening Recommendation: no further intervention at this time Cognitive screening Mini Cog Score: 5 Cognitive screening reviewed and No further action needed (score 3-5). Functional Observation Was the patient's Timed Up & Go test unsteady or >= 12 seconds? No Advance Care Planning Surrogate decision maker and/or advance care plan documented Has Tra. Surrogate decision maker is Jia Zimmerman Measurements BP 124/68 Pulse 71 Temp 36.7 C (98.1 F) Resp 16 Wt 105.1 kg (231 lb 11.3 oz) SpO2 98% BMI 32.78 kg/m Hearing/vision screening results: Vision Screening Right eye - Without correction: 20/25 With correction: Left eye - Without correction: 20/30 With correction: Both eyes - Without correction: 20/25 With correction: Assessment/Plan Medicare annual wellness visit, subsequent (Z00.00) - Counseled on healthy diet and regular exercise - Fall avoidance information provided - Personalized prevention plan provided Medicare annual wellness visit, subsequent: - Medicare wellness visit completed today. - Reviewed patient's current medications and adjusted as necessary. - Discussed the importance of smoking cessation; patient has started smoking again but is working on quitting. - Ordered routine labs to be done annually; last labs were in October, next labs due next year unlesssymptoms change. DDD (degenerative disc disease), lumbar: - Chronic condition, stable. - Pain management with hydrocodone; no side effects or adverse effects reported. - Continue current pain management regimen. Lumbar stenosis with neurogenic claudication: - Chronic condition, stable. - Pain management with hydrocodone; no side effects or adverse effects reported. - Continue current pain management regimen. Chronic bilateral low back pain with bilateral sciatica: - Chronic condition, stable. - Pain management with hydrocodone; no side effects or adverse effects reported. - Continue current pain management regimen. Screening for depression: - Screening for depression completed. - No further action required at this time. Screening for prostate cancer: - Screening for prostate cancer completed. - No further action required at this time. Screening for colon cancer: - Screening for colon cancer completed. - No further action required at this time. Chronic obstructive pulmonary disease, unspecified COPD type (HCC) Smoker--working on smoking cessation again : - Chronic condition, stable. - Initiated Trelegy for wheezing. - Ventolin (albuterol) prescribed for use as needed for cough, wheezing, or shortness of breath, especially with exertion. - Patient advised to monitor symptoms and use albuterol as needed. - Continue working on quitting smoking. Primary hypertension: - Chronic condition, stable. - Blood pressure improved with the addition of Norvasc (amlodipine) by cardiology. - Continue current antihypertensive regimen. Bilateral lower extremity edema: - Mild leg swelling noted, not severe. - Continue monitoring for any changes or worsening symptoms. Abel Pablo MD [facility] Telephone encounter Note * Telephone Encounter - Abel Pablo MD - 03/10/2024 1:24 PM EDT Noted regarding DM [facility], may need to go to [facility] retail pharmacy. The following approved medication requests have been transmitted electronically. Requested Prescriptions Signed Prescriptions Disp Refills HYDROcodone-acetaminophen (NORCO) 5-325 mg per tablet 140 tablet 0 Sig: Take 2 tablets by mouth two times a day. May also take 1 tablet once daily as needed (breakthrough pain (some days needs 5 pills instead of 4)). Do all this for 30 days. Authorizing Provider: ABEL PABLO MD [facility]07-22-2024 Miscellaneous Notes* Telephone Encounter - Abel Pablo MD - 03/10/2024 1:24 PM EDT Noted regarding DM [facility], may need to go to [facility] retail pharmacy. The following approved medication requests have been transmitted electronically. Requested Prescriptions Signed Prescriptions Disp Refills HYDROcodone-acetaminophen (NORCO) 5-325 mg per tablet 140 tablet 0 Sig: Take 2 tablets by mouth two times a day. May also take 1 tablet once daily as needed (breakthrough pain (some days needs 5 pills instead of 4)). Do all this for 30 days. Authorizing Provider: ABEL PABLO MD * Telephone Encounter - Gini Rudd RN - 03/10/2024 9:33 AM EDT Previous script was sent to [facility] which would not fill script. Patient asking for medication sri sent to [facility]. The patient has been identified by name and date of : Yes Caregiver verified no other encounters exist for this prescription request: Yes Caregiver confirmed with patient/requestor that no other refills are due, in the near future, with this provider at this time: Yes The last office visit in the department: 12/31/2023 Does the patient have a future office visit with this provider/department: Yes 04/08/2024 Requested Prescriptions Pending Prescriptions Disp Refills HYDROcodone-acetaminophen (NORCO) 5-325 mg per tablet 140 tablet 0 Sig: Take 2 tablets by mouth two times a day. May also take 1 tablet once daily as needed (breakthrough pain (some days needs 5 pills instead of 4)). Do all this for 30 days. Gini Rudd RN March 10, 2024 9:33 AM [facility] Telephone encounter Note * Telephone Encounter - Gini Rudd RN - 03/10/2024 9:33 AM EDT Previous script was sent to [facility] which would not fill script. Patient asking for medication sri sent to [facility]. The patient has been identified by name and date of : Yes Caregiver verified no other encounters exist for this prescription request: Yes Caregiver confirmed with patient/requestor that no other refills are due, in the near future, with this provider at this time: Yes The last office visit in the department: 12/31/2023 Does the patient have a future office visit with this provider/department: Yes 04/08/2024 Requested Prescriptions Pending Prescriptions Disp Refills HYDROcodone-acetaminophen (NORCO) 5-325 mg per tablet 140 tablet 0 Sig: Take 2 tablets by mouth two times a day. May also take 1 tablet once daily as needed (breakthrough pain (some days needs 5 pills instead of 4)). Do all this for 30 days. Gini Rudd RN March 10, 2024 9:33 AM [facility]05-23-[facility] Telephone encounter Note* Telephone Encounter - Domonique Devine APRN.CNS - 01/10/2024 1:06 PM EDT OK[facility] Miscellaneous Notes* Telephone Encounter - Domonique Devine APRN.CNS - 01/10/2024 1:06 PM EDT [place] * Telephone Encounter - Jaylene Quintana LPN - 01/10/2024 12:16 PM EDT Spoke with Pharmacist at [facility], to see if patient currently has prescriptions their and he states that patient did but that he told patient that he needs to go see Pain Management, that he was not going to refill his prescription and that he needed to go to another pharmacy if he wants them fill ed. [facility] states that [place] [employer] is watching primary providers more and states he will no longer accept prescriptions for Hydrocodone from a primary physician. Pharmacist was instructedto cancel all remaining hydrocodone prescription. Patient has been identified by name and date of : Yes, Provider Bev Date 01/10/24 Time 12:26pm Patient phones for refill(s): Requested Prescriptions Pending Prescriptions Disp Refills HYDROcodone-acetaminophen (NORCO) 5-325 mg per tablet 140 tablet 0 Sig: Take 2 tablets by mouth two times a day. May also take 1 tablet once daily as needed (breakthrough pain (some days needs 5 pills instead of 4)). Do all this for 30 days. HYDROcodone-acetaminophen (NORCO) 5-325 mg per tablet 140 tablet 0 Sig: Take 2 tablets by mouth two times a day. May also take 1 tablet once daily as needed (breakthrough pain (some days needs 5 pills instead of 4)). Do all this for 30 days. Do not start before 2023. Date of last office visit in primary care: 12/31/23 Date of next office visit in primary care: 04/08/24 Please advise. Thank you. Jaylene Quintana LPN. * Telephone Encounter - Анна Breen - 01/09/2024 5:00 PM EDT Moshe is calling Abel Pablo MD today to request the RX sent for hydrocodone -acetaminophen 5-325 mg tablet Please cancel the RX's sent to [facility] in [place] (per patient they refused to fill this medication) Please [facility] [place] [facility] [address] [facility] Patient is completely out of this medication Patient has been identified by name and birthdate. Person calling: self Call patient at: at home [phone] ([phone] (work) [phone] (cell) Was an appointment scheduled: No Closing statement: Results or non-symptom based questions: Thank you for calling [facility], your call will be returned within the next business day. Анна Oden documented in this encounterGe[facility]05-23-[facility]24 Telephone encounter Note * Telephone Encounter - Jaylene Quintana LPN - 01/10/2024 12:16 PM EDT Spoke with Pharmacist at , [facility], to see if patient currently has prescriptions their and he states that patient did but that he told patient that he needs to go see Pain Management, that he was not going to refill his prescription and that he needed to go to another pharmacy if he wants them fill ed. [facility] states that [place] [employer] is watching primary providers more and states he will no longer accept prescriptions for Hydrocodone from a primary physician. Pharmacist was instructedto cancel all remaining hydrocodone prescription. Patient has been identified by name and date of : Yes, Provider Bev Date 01/10/24 Time 12:26pm Patient phones for refill(s): Requested Prescriptions Pending Prescriptions Disp Refills HYDROcodone-acetaminophen (NORCO) 5-325 mg per tablet 140 tablet 0 Sig: Take 2 tablets by mouth two times a day. May also take 1 tablet once daily as needed (breakthrough pain (some days needs 5 pills instead of 4)). Do all this for 30 days. HYDROcodone-acetaminophen (NORCO) 5-325 mg per tablet 140 tablet 0 Sig: Take 2 tablets by mouth two times a day. May also take 1 tablet once daily as needed (breakthrough pain (some days needs 5 pills instead of 4)). Do all this for 30 days. Do not start before 2023. Date of last office visit in primary care: 12/31/23 Date of next office visit in primary care: 04/08/24 Please advise. Thank you. Jaylene Quintana LPN. [facility] Telephone encounter Note* Telephone Encounter - Анна Breen - 01/09/2024 5:00 PM EDT Moshe is calling Abel Pablo MD today to request the RX sent for hydrocodone -acetaminophen 5-325 mg tablet Please cancel the RX's sent to [facility] in [place] (per patient they refused to fill this medication) Please send new Rx's to new pharmacy [facility] in [place] [facility] [address] [facility] Patient is completely out of this medication Patient has been identified by name and birthdate. Person calling: self Call patient at: at home [phone] (home) [phone] (work) [phone] (cell) Was an appointment scheduled: No Closing statement: Results or non-symptom based questions: Thank you for calling [facility], your call will be returned within the next business day. Анна Oden [facility]05-13-2024 History of Present illness Narrative* Domonique Devine, BUSINESS CHANGE MANAGER.ELECTROMECHANICAL ASSEMBLY TECHNICIAN - 12/31/2023 6:59 AM EDT SUBJECTIVE: Abdominal Aortic Aneurysm Screening Never done RSV Vaccine(1 - 1-dose 60+ series) Never done Lung Cancer Screening due on 07/26/2021 Shingrix Vaccine(3 of 3) due on 11/28/2021 DTaP,Tdap,Td Vaccine(3 - Td or Tdap) due on 11/06/2022 Prostate Cancer Screening Discussion due on 02/19/2023 Advance Directive Discussion due on 08/20/2023 Behavioral Health Screening Never done Colorectal Cancer Screening due on 10/07/2023 HPI Moshe Zimmerman is a 68 year old male. 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 Skin cancer removed Dr Rodriguez. Following with [facility], Dr Elias. Doing well. BP not optimally controlled. Trying to lose weight, DASH diet first to see what he can accomplish prior to making medication changes. Has follow-up appointment scheduled. Trying to quit smoking. Has reduced smoking. Today notes: Is currently without back pain. He notes low back pain with radiation down right leg. He tends to notice this later in the day, has to stand for work. Notes shower in the morning helps with arthritic pain. Notes he has seen specialists in the past for his back, reports has had imaging.Notes he does daily stretching. Lies down at lunch which helps with back pain Medication effective for pain: Yes Home exercises or stretches: Yes Adverse effects: OIC, as needed use MiraLAX helps PT: Not currently Spine or pain management: Not currently Has appointment scheduled with general surgery, plans colonoscopy. Using Cialis as needed. Effective. No adverse effects noted. Review of Systems Constitutional: Negative. Respiratory: Negative. Cardiovascular: Negative. Musculoskeletal: Positive for back pain. Objective BP 138/78 Pulse 71 Resp 16 Wt 107.5 kg (237 lb) BMI 33.53 kg/m Physical Exam Vitals and nursing note reviewed. Constitutional: Appearance: Normal appearance. HENT: Head: Normocephalic and atraumatic. Eyes: Conjunctiva/sclera: Conjunctivae normal. Cardiovascular: Rate and Rhythm: Normal rate. Pulmonary: Effort: Pulmonary effort is normal. Skin: General: Skin is warm and dry. Neurological: Mental Status: He is alert and oriented to person, place, and time. ALLERGIES Allergen Reactions Brilinta [Ticagrelo* Shortness of Breath Lipitor [Atorvastat* muscle cramps Lodine [Etodolac] depression Wellbutrin [Bupropi* HYDROcodone-acetaminophen (NORCO) 5-325 mg per tablet Take 2 tablets by mouth two times a day. May also take 1 tablet once daily as needed (breakthrough pain (some days needs 5 pills instead of 4)). Do all this for 30 days. Do not start before December 07, 2023. Tadalafil (CIALIS) 20 mg tab(s) Take 1 tablet by mouth once daily. furosemide (LASIX) 20 mg tablet Take 1 tablet by mouth once daily as needed (fluid retention). ([facility]) (Patient taking differently: Take 20 mg by mouth once daily as needed (fluid retention). ([facility]) PRN-only when BEN feet swell) metoprolol succinate ER (TOPROL XL) 25 mg 24 hr tablet Take 0.5 tablets by mouth twice daily. ([facility]) potassium chloride (KLOR-CON 10) 10 mEq tablet Take 1 tablet by mouth daily with breakfast. ([facility]) Cholecalciferol, Vitamin D3, 50 mcg (2,000 unit) cap Take 1 capsule by mouth once daily. losartan (COZAAR) 25 mg tablet Take 25 mg by mouth once daily. clopidogrel (PLAVIX) 75 mg tablet Take 75 mg by mouth once daily. rosuvastatin (CRESTOR) 5 mg tablet Take 20 mg by mouth once daily. aspirin, enteric coated (ASPIRIN, ENTERIC COATED) 81 mg EC tablet Take 81 mg by mouth once daily. MULTIVITAMIN ORAL DAILY Nicotine Polacrilex [address] 1 Lozenge between cheek and gum as needed. HYDROcodone-acetaminophen (NORCO) 5-325 mg per tablet Take 2 tablets by mouth two times a day. May also take 1 tablet once daily as needed (breakthrough pain (some days needs 5 pills instead of 4)). Do all this for 30 days. Do not start before October 08, 2023. HYDROcodone-acetaminophen (NORCO) 5-325 mg per tablet Take 2 tablets by mouth two times a day. May also take 1 tablet once daily as needed (breakthrough pain (some days needs 5 pills instead of 4)). Do all this for 30 days. Do not start before November 07, 2023. HYDROcodone-acetaminophen (NORCO) 5-325 mg per tablet Take 2 tablets by mouth two times a day. May also take 1 tablet once daily as needed (breakthrough pain (some days needs 5 pills instead of 4)). Do all this for 30 days. Do not start before September 08, 2023. 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 Raynaud's syndrome Sciatica Tobacco abuse Urinary calculus, unspecified Renal stones--calcium oxalate Social History Tobacco Use Smoking status: Former Packs/day: 0.50 Years: 40.00 Additional pack years: 0.00 Total pack years: 20.00 Types: Cigarettes Quit date: 07/04/2018 Years since quittin.4 Smokeless tobacco: Current Types: Chew Tobacco comments: Not currently chewing tobacco Substance Use Topics Alcohol use: No Drug use: No Latest Ref Rng 06/08/2022 11/15/2023 Morphine Quant, Urine <10 ng/mL <10 <10 Oxymorphone Quant, Urine <5 ng/mL <5 <5 Hydromorphone Quant, Urine <5 ng/mL 2,701 (H) >4,980 (H) Dihydrocodeine Quant, Urine <5 ng/mL 2,156 (H) 2,400 (H) Codeine Quant, Urine <11 ng/mL <11 <11 Amphetamine Quant, Urine <5 ng/mL <5 <5 Desmethyltramadol Quant, Urine <20 ng/mL <20 <20 Benzoylecgonine Quant, Urine <24 ng/mL <24 <24 Oxycodone Quant, Urine <10 ng/mL <10 <10 Methamphetamine Quant, Urine <8 ng/mL <8 <8 6-Acetylmorphine Quant, Urine <5 ng/mL <5 <5 Hydrocodone Quant, Urine <8 ng/mL >5,270 (H) >5,270 (H) Norfentanyl Quant, Urine <6 ng/mL <6 <6 Tramadol Quant, Urine <25 ng/mL <25 <25 Norbuprenorphine Quant, Urine <20 ng/mL <20 <20 Cannabinoid Quant, Urine <16 ng/mL <16 <16 Fentanyl Quant, Urine <6 ng/mL <6 <6 Buprenorphine Quant, Urine <20 ng/mL <20 <20 Methadone Quant, Urine <16 ng/mL <16 <16 EDDP Quant, Urine <6 ng/mL <6 <6 Note,Ur Pain Melendez -- -- Protein, Total 6.3 - 8.0 g/dL 6.5 6.6 Albumin 3.9 - 4.9 g/dL 4.1 4.0 Calcium 8.5 - 10.2 mg/dL 9.2 9.3 Bilirubin, Total 0.2 - 1.3 mg/dL 0.3 0.3 Alkaline Phosphatase 38 - 113 U/L 104 99 AST 14 - 40 U/L 15 23 ALT 10 - 54 U/L 11 14 Glucose 74 - 99 mg/dL 102 (H) 108 (H) BUN 9 - 24 mg/dL 13 13 Creatinine 0.73 - 1.22 mg/dL 0.78 0.86 Sodium 136 - 144 mmol/L 140 142 Potassium 3.7 - 5.1 mmol/L 4.4 4.0 Chloride 97 - 105 mmol/L 105 106 (H) CO2 22 - 30 mmol/L 25 24 Anion Gap 9 - 18 mmol/L 10 12 eGFR >=60 mL/min/1.73m 99 95 WBC 3.70 - 11.00 k/uL 4.86 5.53 RBC 4.20 - 6.00 m/uL 4.51 4.46 Hemoglobin 13.0 - 17.0 g/dL 13.6 13.6 Hematocrit 39.0 - 51.0 % 41.2 41.2 MCV 80.0 - 100.0 fL 91.4 92.4 MCH 26.0 - 34.0 pg 30.2 30.5 MCHC 30.5 - 36.0 g/dL 33.0 33.0 RDW-CV 11.5 - 15.0 % 13.5 13.1 Platelet Count 150 - 400 k/uL 253 236 MPV 9.0 - 12.7 fL 10.2 10.0 Absolute nRBC <0.01 k/uL <0.01 <0.01 Phencyclidine Negative Negative Negative Benzodiazepines Urine Negative Negative Negative Cocaine Urine Negative Negative Negative Amphetamines Negative Negative Negative Cannabinoids, Urine Negative Negative Negative Opiates Negative Preliminary positive ! Preliminary positive ! Barbiturates Negative Negative Negative Ethanol, Urine <11 mg/dL <11 <11 Oxycodone, Urine Negative Negative Negative Cholesterol, Total <200 mg/dL 136 131 Triglyceride <150 mg/dL 84 95 HDL Cholesterol >39 mg/dL 46 42 Non HDL Cholesterol <130 mg/dL 90 89 Fasting Time hrs 10 12 VLDL Cholesterol <30 mg/dL 17 19 TC:HDL Ratio <5.10 2.96 3.12 LDL Cholesterol <100 mg/dL 73 70 LDL:HDL Ratio <2.54 1.59 1.67 Specimen Validity Quality Specimen quality results within acceptable limits Specimen quality results within acceptable limits Specimen Validity Creatinine 20.0 - 300.0 mg/dL 365.0 (H) 164.5 Specimen Validity PH 4.5 - 8.0 5.4 5.1 Specimen Validity Specific [place] 1.003 - 1.035 1.020 1.010 Specimen Validity Oxidants <200 mg/L 38 <38 Specimen Validity Nitrites <500 mg/L 79 <50 Specimen Validity Chromate <50 mg/L <10 <10 Hemoglobin A1C 4.3 - 5.6 % 5.7 (H) 5.6 Estimated Average Glucose mg/dL 117 114 NT Pro BNP <125 pg/mL 185 (H) ASSESSMENT/PLAN: 1. Lumbar stenosis with neurogenic claudication - ICD9: 724.03, ICD10: M48.062 (primary diagnosis) 2. Chronic bilateral low back pain with bilateral sciatica - ICD9: 724.2, 724.3, 338.29, ICD10: M54.42, M54.41, G89.29 3. DDD (degenerative disc disease), lumbar - ICD9: 722.52, ICD10: M51.36 Medication currently effective, completing home exercises and stretches, resting during the day helps. He has seen specialist in the past but not currently. Stable without red flags noted. Notes occasional OIC, helped with MiraLAX. Continue with current medications unchanged for now. Refer as indicated- PT, spine/pain specialist. - HYDROCODONE 5 MG-ACETAMINOPHEN 325 MG TABLET - HYDROCODONE 5 MG-ACETAMINOPHEN 325 MG TABLET 2. Tobacco use disorder F17.200 Tobacco cessation endorsed 2. Screening for abdominal aortic aneurysm - ICD9: V81.2, ICD10: Z13.6 - US SCREENING FOR AAA 3. Encounter for screening for lung cancer - ICD9: V76.0, ICD10: Z12.2 - CONSULT LUNG CANCER SCREENING CLINIC 4. Encounter for immunization - ICD9: V03.89, ICD10: Z23 - [employer] PRINTED PHARMACY INSTRUCTIONS - TDAP PRINTED PHARMACY INSTRUCTIONS 5. Screening for prostate cancer - ICD9: V76.44, ICD10: Z12.5 - PSA/PROSTATE SPECIFIC ANTIGEN SCREENING 6. Screening for colon cancer - ICD9: V76.51, ICD10: Z12.11 3 mo follow up MD Domonique Haque APRN.CNS Medical Decision Making: Problems: Moderate: 2+ stable chronic illnesses Data: Unique test result(s) reviewed: 3+ Risk: Moderate: Drug management Medical Decision Making Level: 4 - Moderate documented in [facility]Ge[facility] History of Present illness Narrative* Angie Melendez APRN.CNP - 12/28/2023 4:15 PM EDT GWEN Youssfe to discuss colon cancer screening at upcoming appointment. * Tessa Ramos RN - 12/27/2023 11:15 AM EDT COLONOSCOPY PATIENT OUTREACH Action/ Colonoscopy Recall Patient identified by Name and : Yes. --- OUTREACH OUTCOME ACTION: Consult- Telephone Call- Pt is overdue for screening colonoscopy. Pt needs consult due to medical history and/or medications. Please call patient and schedule appointment with General Surgery Provider. Tessa Ramos RN documented in this encounterGe[facility]02-12-2024 History of Present illness Narrative* Abel Pablo MD - 10/01/2023 8:56 AM EST This note was created using Linq3ter. Subjective Moshe Zimmerman is a 68 year old male. Patient presents with: Follow Up: 3 month follow up SUBJECTIVE: Moshe Zimmerman is a 68 year old year old gentleman here today for 3 month follow up appointment forreview of medical conditions. Overall doing okay. Stable from pain control standpoint. Still working on quitting smoking and chewing tobacco. 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 May also take 1 tablet once daily as needed (breakthrough pain (some days needs 5 pills instead of 4)). Do all this for 30 days. Do not start before September 08, 2023. Tadalafil (CIALIS) 20 mg tab(s) Take 1 tablet by mouth once daily. furosemide (LASIX) 20 mg tablet Take 1 tablet by mouth once daily as needed (fluid retention). ([facility]) (Patient taking differently: Take 20 mg by mouth once daily as needed (fluid retention). ([facility]) PRN-only when BEN feet swell) metoprolol succinate ER (TOPROL XL) 25 mg 24 hr tablet Take 0.5 tablets by mouth twice daily. ([facility]) potassium chloride (KLOR-CON 10) 10 mEq tablet Take 1 tablet by mouth daily with breakfast. ([facility]) Cholecalciferol, Vitamin D3, 50 mcg (2,000 unit) cap Take 1 capsule by mouth once daily. losartan (COZAAR) 25 mg tablet Take 25 mg by mouth once daily. clopidogrel (PLAVIX) 75 mg tablet Take 75 mg by mouth once daily. rosuvastatin (CRESTOR) 5 mg tablet Take 20 mg by mouth once daily. aspirin, enteric coated (ASPIRIN, ENTERIC COATED) 81 mg EC tablet Take 81 mg by mouth once daily. MULTIVITAMIN ORAL DAILY No current facility-administered medications for this visit. Review of Systems Objective BP (P) 128/74 (BP Site: Left Arm, BP Position: Sitting, BP Cuff Size: Large Adult) Pulse (P) 78 Wt (P) 109.8 kg (242 lb) BMI (P) 34.23 kg/m Physical Exam Vitals reviewed. Constitutional: Appearance: Normal appearance. Eyes: Conjunctiva/sclera: Conjunctivae normal. Cardiovascular: Rate and Rhythm: Normal rate and regular rhythm. Heart sounds: Normal heart sounds. Pulmonary: Effort: Pulmonary effort is normal. Breath sounds: Normal breath sounds. Musculoskeletal: Right lower leg: No edema. Left lower leg: No edema. Skin: General: Skin is warm and dry. Neurological: General: No focal deficit present. Mental Status: He is alert and oriented to person, place, and time. Psychiatric: Mood and Affect: Mood normal. Behavior: Behavior normal. Thought Content: Thought content normal. Judgment: Judgment normal. Assessment and Plan Encounter Diagnosis ICD-10-CM 1. Chronic bilateral low back pain with bilateral sciatica M54.42 HYDROcodone- acetaminophen (NORCO)5-325 mg per tablet M54.41 HYDROcodone-acetaminophen (NORCO) 5-325 mg per tablet G89.29 HYDROcodone-acetaminophen (NORCO) 5-325 mg per tablet Doing well with pain control. Staying active. Walking more. Does some work when needed. 2. Primary hypertension I10 COMP METABOLIC PANEL CBC Well controlled. Continue meds; prescribed by [facility]. 3. Mixed hyperlipidemia E78.2 LIPID PANEL BASIC Continue same med; labs soon. RX through cardiology 4. IFG (impaired fasting glucose) R73.01 COMP METABOLIC PANEL HGB A1C Follow up on labs.Walking more. Watching diet. 5. DDD (degenerative disc disease), lumbar M51.36 HYDROcodone-acetaminophen (NORCO) 5-325 mg per tablet HYDROcodone-acetaminophen (NORCO) 5-325 mg per tablet HYDROcodone-acetaminophen (NORCO) 5-325 mg per tablet 6. Lumbar stenosis with neurogenic claudication M48.062 HYDROcodone- acetaminophen (NORCO) 5-325 mg per tablet HYDROcodone-acetaminophen (NORCO) 5-325 mg per tablet HYDROcodone-acetaminophen (NORCO) 5-325 mg per tablet 7. Encounter for long-term current use of medication Z79.899 COMP METABOLIC PANEL CBC LIPID PANEL BASIC HGB A1C PAIN PANEL, UR QUANT TOX SCREEN ROUT UR 8. Encounter for immunization Z23 [employer] PRINTED PHARMACY INSTRUCTIONS Above issues addressed with patient. Patient involved in shared decision making for management of medical issues. History and medications reviewed. Epic updated as needed Refills and/or prescriptions taken care of and meds adjusted as indicated after reviewed history, exam and labs. Health Maintenance reviewed. Updated record and/or ordered tests as recorded. Encouraged on efforts at healthy diet and regular exercise and adequate sleep. Stable with control of chronic pain. At this time benefits outweigh risks. Continue to monitor for adverse effects and indications for decreasing dose or tapering off. No signs of diversion or abuse of medication(s); no adverse effects. Continue present management. Abel Pablo MD documented in this encounterGe[facility]11-21-2023 Miscellaneous Notes* Telephone Encounter - Abel Pablo MD - 07/10/2023 12:18 AM EST The following approved medication requests have been transmitted electronically. Requested Prescriptions Signed Prescriptions Disp Refills HYDROcodone-acetaminophen (NORCO) 5-325 mg per tablet 140 tablet 0 Sig: Take 2 tablets by mouth two times a day. May also take 1 tablet once daily as needed (breakthrough pain (some days needs 5 pills instead of 4)). Do all this for 30 days. Do not start before September 08, 2023. Authorizing Provider: ABEL PABLO HYDROcodone-acetaminophen (NORCO) 5-325 mg per tablet 140 tablet 0 Sig: Take 2 tablets by mouth two times a day. May also take 1 tablet once daily as needed (breakthrough pain (some days needs 5 pills instead of 4)). Do all this for 30 days. Do not start before August 09, 2023. Authorizing Provider: ABEL PABLO HYDROcodone-acetaminophen (NORCO) 5-325 mg per tablet 140 tablet 0 Sig: Take 2 tablets by mouth two times a day. May also take 1 tablet once daily as needed (breakthrough pain (some days needs 5 pills instead of 4)). Do all this for 30 days. Authorizing Provider: ABEL PABLO MD Seen 06/22 when computers were down * Telephone Encounter - Thierry Delgado Ma - 07/09/2023 1:12 PM EST YOHANNES: 03/23/2023 NOV: 10/01/2023 Last refill: 06/08/2023 QTY: 140 Refills: 0 * Telephone Encounter - Cheyenne Chavez - 07/09/2023 8:13 AM EST Patient has been identified by name and date of : Yes Requested Prescriptions Pending Prescriptions Disp Refills HYDROcodone-acetaminophen (NORCO) 5-325 mg per tablet 140 tablet 0 Sig: Take 2 tablets by mouth two times a day. May also take 1 tablet once daily as needed (breakthrough pain (some days needs 5 pills instead of 4)). Do all this for 30 days. HYDROcodone-acetaminophen (NORCO) 5-325 mg per tablet 140 tablet 0 Sig: Take 2 tablets by mouth two times a day. May also take 1 tablet once daily as needed (breakthrough pain (some days needs 5 pills instead of 4)). Do all this for 30 days. HYDROcodone-acetaminophen (NORCO) 5-325 mg per tablet 140 tablet 0 Sig: Take 2 tablets by mouth two times a day. May also take 1 tablet once daily as needed (breakthrough pain (some days needs 5 pills instead of 4)). Do all this for 30 days. RX INSTRUCTIONS: Patient aware RX will be sent to pharmacy. No need to nofity patient. Controlled medication - must be call in. Cheyenne Beatty documented in this encounterGe[facility]08-04-2023 History of Present illness Narrative* Angie Melendez APRN.INSURANCE SALES AGENT - 03/23/2023 8:42 AM EDT SUBJECTIVE Moshe Zimmerman is a 68 year old male here today for a check up on his medical problems. Chief Complaint Patient presents with: F/U 3 months HPI Moshe Zimmerman is a 68 year old male established patient of Dr. Pablo. He is here today for a 3 month follow up. He was last seen 12/25/2022 for chronic low back pain, lumbar DDD and lumbar stenosis. He is on norco for this. In regards to medications currently taken for pain management, the patient is tolerating these medications well. Despite the side effects of constipation , he reports thatthe medications improve his quality of life and ability to function. He manages the constipation with as needed miralax. He denies misuse, abuse or diversion of medications. Overall his pain is unchanged than the last visit. Moshe is a 68 year old male who presents for follow-up for hypertension. They are here today for a recheck of blood pressure. Blood pressure appears to be stable. Denies any symptoms referable to elevated blood pressure. Specifically denies headache, chest pain, palpitations, dyspnea and peripheraledema. Tolerating medications well. He wants to work on weight loss, wondering about Ozempic. He goes to the gym at his job a few timesa week, treadmill, rowing machine and bike. His medications were reviewed today and his list is now up to date. Medications Current Outpatient Medications Medication Sig HYDROcodone-acetaminophen (NORCO) 5-325 mg per tablet Take 2 tablets by mouth twice daily. May alsotake 1 tablet once daily as needed (breakthrough pain (some days needs 5 pills instead of 4)). Do all this for 30 days. Do not start before March 15, 2023. Tadalafil (CIALIS) 20 mg tab(s) Take 1 tablet by mouth once daily. furosemide (LASIX) 20 mg tablet Take 1 tablet by mouth once daily as needed (fluid retention). ([facility]) (Patient taking differently: Take 20 mg by mouth once daily as needed (fluid retention). ([facility]) PRN-only when BEN feet swell) metoprolol succinate ER (TOPROL XL) 25 mg 24 hr tablet Take 0.5 tablets by mouth twice daily. ([facility]) potassium chloride (KLOR-CON 10) 10 mEq tablet Take 1 tablet by mouth daily with breakfast. ([facility]) Cholecalciferol, Vitamin D3, 50 mcg (2,000 unit) cap Take 1 capsule by mouth once daily. losartan (COZAAR) 25 mg tablet Take 25 mg by mouth once daily. clopidogrel (PLAVIX) 75 mg tablet Take 75 mg by mouth once daily. rosuvastatin (CRESTOR) 5 mg tablet Take 20 mg by mouth once daily. aspirin, enteric coated (ASPIRIN, ENTERIC COATED) 81 mg EC tablet Take 81 mg by mouth once daily. MULTIVITAMIN ORAL DAILY HYDROcodone-acetaminophen (NORCO) 5-325 mg per tablet Take 2 tablets by mouth twice daily. May alsotake 1 tablet once daily as needed (breakthrough pain (some days needs 5 pills instead of 4)). Do all this for 30 days. Do not start before January 14, 2023. HYDROcodone-acetaminophen (NORCO) 5-325 mg per tablet Take 2 tablets by mouth twice daily. May alsotake 1 tablet once daily as needed (breakthrough pain (some days needs 5 pills instead of 4)). Do all this for 30 days. Do not start before February 13, 2023. No current facility-administered medications for this visit. ALLERGIES Allergen Reactions Brilinta [Ticagrelo* Shortness of Breath Lipitor [Atorvastat* muscle cramps Lodine [Etodolac] depression Wellbutrin [Bupropi* ACTIVE PROBLEM LIST Anxiety - 05/27/2021 History of Non-St Elevation Myocardial Infarction (Nstemi) - 09/16/2018 S/P coronary artery stents placement - 09/16/2018 Class 1 Obesity Due to Excess Calories Without Serious Comorbidity With Body Mass Index (Bmi) of 31.0 to 31.9 in Adult - 03/08/2018 Pain in Both Hands - 10/13/2016 Internal Hemorrhoids Without Mention of Complication - 12/10/2014 Chronic Low Back Pain - 05/26/2014 Ddd (Degenerative Disc Disease), Lumbar - 05/26/2014 Ed (Erectile Dysfunction) - 05/09/2013 Meralgia Paresthetica of Left Side - 05/08/2012 Lumbar Stenosis With Neurogenic Claudication - 05/08/2011 Duodenal Ulcer Due to Helicobacter Pylori - 06/03/2010 Blood in Stool - 06/02/2010 Hemorrhoids - 04/21/2010 Tendonitis - 11/01/2009 Tobacco Use Disorder - 08/25/2007 Contracture of Palmar Fascia - 06/15/2007 Mixed Hyperlipidemia - 02/19/2006 Raynaud's Syndrome Displacement of Lumbar Intervertebral Disc Without Myelopathy Comment: Controlled Substance Agreement Signed 10/12/16 Sciatica Urinary Calculus, Unspecified Comment: Renal stones Social History Tobacco Use Smoking status: Former Packs/day: 2.00 Years: 40.00 Total pack years: 80.00 Types: Cigarettes Quit date: 07/04/2018 Years since quittin.7 Smokeless tobacco: Current Types: Chew Tobacco comments: At least not smoking; working on cutting back--low dose packets now. Considering working on quitting--working on cutting out the chewing tobacco--planning on trying to quit after retires Substance Use Topics Alcohol use: No Drug use: No Review of Systems Respiratory: Negative. Cardiovascular: Negative. OBJECTIVE BP 126/70 Pulse 60 Resp 16 Wt 237 lb (107.5kg) SpO2 98% Physical Exam Vitals and nursing note reviewed. Constitutional: General: He is awake. He is not in acute distress. Appearance: Normal appearance. He is well-developed and well-groomed. He is obese. He is not ill-appearing, toxic-appearing or diaphoretic. HENT: Head: Normocephalic. Right Ear: External ear normal. Left Ear: External ear normal. Nose: Nose normal. Eyes: General: Vision grossly intact. Conjunctiva/sclera: Conjunctivae normal. Pupils: Pupils are equal, round, and reactive to light. Neck: Vascular: No JVD. Trachea: Trachea normal. Cardiovascular: Rate and Rhythm: Normal rate and regular rhythm. Pulses: Normal pulses. Heart sounds: Normal heart sounds. No murmur heard. Pulmonary: Effort: Pulmonary effort is normal. No accessory muscle usage, prolonged expiration or respiratory distress. Breath sounds: Normal breath sounds. Musculoskeletal: Cervical back: Neck supple. Skin: General: Skin is warm and dry. Capillary Refill: Capillary refill takes less than 2 seconds. Neurological: General: No focal deficit present. Mental Status: He is alert and oriented to person, place, and time. Mental status is at baseline. Psychiatric: Attention and Perception: Attention and perception normal. Mood and Affect: Mood and affect normal. Speech: Speech normal. Behavior: Behavior normal. Behavior is cooperative. Thought Content: Thought content normal. Cognition and Memory: Cognition and memory normal. Judgment: Judgment normal. ASSESSMENT/PLAN: 1. DDD (degenerative disc disease), lumbar - ICD9: 722.52, ICD10: M51.36 (primary diagnosis) Overall stable with the norco. OARRS reviewed and script is appropriate, non-opioids considered. Patient is aware of risks and benefits of opioid medications and their use, including but not limited to risk for addiction. Advised to take medication as prescribed and adhere to the dosing regimen and to use the least amount necessary for the shortest period of time. Discussed possible side effects including constipation. Advisedto use caution when operating heavy machinery and driving and to never share or sell medication. - HYDROCODONE 5 MG-ACETAMINOPHEN 325 MG TABLET 2. Chronic bilateral low back pain with bilateral sciatica - ICD9: 724.2, 724.3, 338.29, ICD10: M54.42, M54.41, G89.29 - HYDROCODONE 5 MG-ACETAMINOPHEN 325 MG TABLET 3. Lumbar stenosis with neurogenic claudication - ICD9: 724.03, ICD10: M48.062 - HYDROCODONE 5 MG-ACETAMINOPHEN 325 MG TABLET 4. Primary hypertension - ICD9: 401.9, ICD10: I10 - Controlled - Continue current medications - Recommend home blood pressure monitoring, to bring results to next visit - Encouraged sodium restriction, DASH or Mediterranean diet - Recommend regular aerobic exercise 5. Class 1 obesity due to excess calories with serious comorbidity and body mass index (BMI) of 33.0 to 33.9 in adult - ICD9: 278.00, V85.33, ICD10: E66.09, Z68.33 - Behavioral intervention and - Pharmacological intervention Discussed different lifestyle changes. Can try and see if Ozempic is covered, he is aware this may get denied. PDMP website checked and validated. All prescriptions have been APPROPRIATELY filled. No suspiciousactivity was identified. 03/23/2023 by Angie Melendez APRN.CNP Portions of this note have been entered by ancillary staff. I have reviewed and when necessary edited, so that they are an adequate record of my encounter with this patient Please note that parts of this document were created using voice recognition software and therefore may contain grammatical errors. Patient verbalizes understanding of instructions from today's visit and in agreement with treatmentplan. Questions answered. Agrees to call the office if questions, concerns of issues with acute symptoms not improving or if they worsen. See diagnoses and orders for additional plan(s). Allergies and medications were reviewed, list was updated, and refills given if needed. Past medical, surgical, social, and family history reviewed and updated as appropriate. Encouraged proper diet & exercise as well as compliance with taking medications. Age- appropriate health preventative measures were discussed. Medical Decision Making: Problems: Moderate: 2+ stable chronic illnesses Risk: Moderate: Drug management Medical Decision Making Level: 4 - Moderate Return if symptoms worsen or fail to improve, for Keep next scheduled appointment.. Angie Melendez APRN-PASCUAL documented in this encounterGe[facility]05-08-2023 History of Present illness Narrative* Abel Pablo MD - 12/25/2022 10:08 AM EDT This note was created using FilmTrackriter. Subjective Moshe Zimmerman is a 67 year old male. Patient presents with: F/U 3 Month SUBJECTIVE: Moshe Zimmerman is a 67 year old year old gentleman here today for 3 month follow up appointment forreview of medical conditions. States that Dr. Elias said okay to take Cialis. Sees once yearly now since doing well. BP better now. Moving around more. Told to lose some weight. Was less active after retired. Got new golf clubs and a Tim. Noted that has not been called back for follow up for the lung cancer screening study. Last time got blood drawn for 10 years. Pain adequately controlled with current meds. 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 Sunday and Wednesdays. 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 May take1 extra daily as needed for breakthrough pain Do not start before September 21, 2022. furosemide (LASIX) 20 mg tablet Take 1 tablet by mouth once daily as needed (fluid retention). ([facility]) (Patient taking differently: Take 20 mg by mouth once daily as needed (fluid retention). ([facility]) PRN-only when BEN feet swell) metoprolol succinate ER (TOPROL XL) 25 mg 24 hr tablet Take 0.5 tablets by mouth twice daily. ([facility]) potassium chloride (KLOR-CON 10) 10 mEq tablet Take 1 tablet by mouth daily with breakfast. ([facility]) Cholecalciferol, Vitamin D3, 50 mcg (2,000 unit) cap Take 1 capsule by mouth once daily. losartan (COZAAR) 25 mg tablet Take 25 mg by mouth once daily. clopidogrel (PLAVIX) 75 mg tablet Take 75 mg by mouth once daily. rosuvastatin (CRESTOR) 5 mg tablet Take 20 mg by mouth once daily. aspirin, enteric coated (ASPIRIN, ENTERIC COATED) 81 mg EC tablet Take 81 mg by mouth once daily. MULTIVITAMIN ORAL DAILY HYDROcodone-acetaminophen (NORCO) 5-325 mg per tablet Take 2 tablets by mouth twice daily for 30 days. May take 1 extra daily as needed for breakthrough pain Do not start before October 21, 2022. HYDROcodone-acetaminophen (NORCO) 5-325 mg per tablet Take 2 tablets by mouth twice daily for 30 days. May take 1 extra daily as needed for breakthrough pain Do not start before November 20, 2022. HYDROcodone-acetaminophen (NORCO) 5-325 mg per tablet Take 2 tablets by mouth twice daily for 30 days. May take 1 extra daily as needed for breakthrough pain Do not start before December 20, 2022. No current facility-administered medications for this visit. Review of Systems Objective BP 138/82 Pulse (!) 55 Temp 36.4 C (97.6 F) (Left Tympanic) Resp 16 Wt 109.6 kg (241 lb 11.2 oz) SpO2 99% BMI 34.19 kg/m Last 5 Encounter Wt Readings: Date: Wt: 12/25/2022 109.6 kg (241 lb 11.2 oz) 09/25/2022 109.3 kg (241 lb) 06/23/2022 111.6 kg (246 lb) 03/27/2022 109.8 kg (242 lb) 01/23/2022 109.3 kg (241 lb) No waist measurement recorded Estimated body mass index is 34.19 kg/m as calculated from the following: Height as of 01/19/17: 179.1 cm (5' 10.5). Weight as of this encounter: 109.6 kg (241 lb 11.2 oz). Last 5 Encounter BP Readings: Date: BP: 12/25/2022 138/82 09/25/2022 146/78 06/23/2022 142/78 03/27/2022 140/74 01/23/2022 138/78 Physical Exam Vitals reviewed. Constitutional: Appearance: Normal appearance. Eyes: Conjunctiva/sclera: Conjunctivae normal. Cardiovascular: Rate and Rhythm: Normal rate and regular rhythm. Heart sounds: Normal heart sounds. Pulmonary: Effort: Pulmonary effort is normal. Breath sounds: Normal breath sounds. Musculoskeletal: Right lower leg: Edema (Trace pretibial) present. Left lower leg: Edema (trace pretibial) present. Skin: General: Skin is warm and dry. Neurological: General: No focal deficit present. Mental Status: He is alert and oriented to person, place, and time. Psychiatric: Mood and Affect: Mood normal. Behavior: Behavior normal. Thought Content: Thought content normal. Judgment: Judgment normal. Assessment and Plan Encounter Diagnosis ICD-10-CM 1. Chronic bilateral low back pain with bilateral sciatica M54.42 HYDROcodone- acetaminophen (NORCO)5-325 mg per tablet M54.41 HYDROcodone-acetaminophen (NORCO) 5-325 mg per tablet G89.29 HYDROcodone-acetaminophen (NORCO) 5-325 mg per tablet 2. DDD (degenerative disc disease), lumbar M51.36 HYDROcodone-acetaminophen (NORCO) 5-325 mg per tablet HYDROcodone-acetaminophen (NORCO) 5-325 mg per tablet HYDROcodone-acetaminophen (NORCO) 5-325 mg per tablet 3. Erectile dysfunction, unspecified erectile dysfunction type N52.9 Tadalafil (CIALIS) 20 mg tab(s) 4. Lumbar stenosis with neurogenic claudication M48.062 HYDROcodone- acetaminophen (NORCO) 5-325 mg per tablet HYDROcodone-acetaminophen (NORCO) 5-325 mg per tablet HYDROcodone-acetaminophen (NORCO) 5-325 mg per tablet 5. S/P coronary artery stents placement Z95.5 6. 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 Stable on current cardiac meds. Continue follow up with Dr. Elias/[facility] yearly and as needed 7. Primary hypertension I10 Improved. Moving more and losing weight helped. 8. Class 1 obesity due to excess calories with body mass index (BMI) of 34.0 to 34.9 in adult, unspecified whether serious comorbidity present E66.09 Z68.34 Above issues addressed with patient. Patient involved in shared decision making for management of medical issues. History and medications reviewed. Epic updated as needed Refills and/or prescriptions taken care of and meds adjusted as indicated after reviewed history, exam and labs. Health Maintenance reviewed. Updated record and/or ordered tests as recorded. Needs to keep workingon diet and exercise with lifestyle changes for effective weight loss as well as prevention of DM, and control of BP and lipids. Encouraged on efforts at healthy diet and regular exercise and adequate sleep. Stable with control of chronic pain. No signs of diversion or abuse of medication(s); no adverse effects. At this time benefits outweigh risks. Continue to monitor for adverse effects and indicationsfor decreasing dose or tapering off. 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 Continue present management. Abel Pablo MD [facility] Miscellaneous Notes* Telephone Encounter - Abel Pablo MD - 09/20/2022 5:55 PM EST The following approved medication requests have been transmitted electronically. Requested Prescriptions Signed Prescriptions Disp Refills HYDROcodone-acetaminophen (NORCO) 5-325 mg per tablet 140 tablet 0 Sig: Take 2 tablets by mouth twice daily. May take 1 extra daily as needed for breakthrough pain Donot start before September 21, 2022. Authorizing Provider: ABEL PABLO MD * Telephone Encounter - Angie Melendez APRN.CNP - 09/20/2022 3:50 PM EST * Telephone Encounter - Thierry Delgado Ma - 09/20/2022 1:42 PM EST YOHANNES: 06/23/2022 Last refill: 07/23/2022 QTY: 140 Refills: 0 Patient's request for medication is as follows: Requested Prescriptions Pending Prescriptions Disp Refills HYDROcodone-acetaminophen (NORCO) 5-325 mg per tablet 140 tablet 0 Sig: Take 2 tablets by mouth twice daily. May take 1 extra daily as needed for breakthrough pain Please approve the above prescription(s) to electronically send to pharmacy. Thierry Delgado Ma * Telephone Encounter - Laurie Early - 09/20/2022 1:01 PM EST Patient has been identified by name and date of : Yes Requested Prescriptions Pending Prescriptions Disp Refills HYDROcodone-acetaminophen (NORCO) 5-325 mg per tablet 140 tablet 0 Sig: Take 2 tablets by mouth twice daily. May take 1 extra daily as needed for breakthrough pain RX INSTRUCTIONS: Patient aware RX will be sent to pharmacy. No need to notify patient. Laurie Early documented [facility]22 Miscellaneous Notes* Telephone Encounter - Jaylene Murphy LPN - 06/29/2022 3:43 PM EST Patient notified that prescription were sent to the pharmacy * Telephone Encounter - Abel Pablo MD - 06/29/2022 3:02 PM EST Below noted The following approved medication requests have been transmitted electronically. Requested Prescriptions Signed Prescriptions Disp Refills HYDROcodone-acetaminophen (NORCO) 5-325 mg per tablet 140 tablet 0 Sig: Take 2 tablets by mouth twice daily. May take 1 extra daily as needed for breakthrough pain Donot start before July 23, 2022. Authorizing Provider: ABEL PABLO HYDROcodone-acetaminophen (NORCO) 5-325 mg per tablet 140 tablet 0 Sig: Take 2 tablets by mouth twice daily. May take 1 extra daily as needed for breakthrough pain Donot start before August 22, 2022. Authorizing Provider: ABEL PABLO MD * Telephone Encounter - Ana Metzger RN - 06/28/2022 10:24 AM EST Patient returned call and states, yes, he needs 140 pills a month still. He states the pharmacy recently gave him a partial fill of 35 and once they receive form back from PCP they will give him the rest to equal the 140. Thank you. * Telephone Encounter - Aditi Mojica LPN - 06/28/2022 10:18 AM EST LEFT MESSAGE FOR PATIENT TO CALL OFFICE. * Telephone Encounter - Abel Pablo MD - 06/28/2022 8:49 AM EST Double check with patient that needs 140 pills per month still (I need to change July and following RX if so since June was 140 but the following two were for 120). Let patient know that pharmacist sent a form that needed completed for continuing to prescribe painmed. * Telephone Encounter - Felicia Brambila Ma - 06/26/2022 2:44 PM EST From received from [employer] to be filled out for controlled substance , in pod documented in [facility]Ge[facility]22 History of Present illness Narrative* Abel Pablo MD - 06/23/2022 10:39 AM EDT This note was created using Rackup. Subjective Moshe Zimmerman is a 67 year old male. Patient presents with: Follow Up SUBJECTIVE: Moshe Zimmerman is a 67 year old year old gentleman here today for 3 month follow up appointment forreview of medical conditions. Plans to make first turkey this Thanksgiving. Likes to bakeleuterio. Doing well with halfway--working 2 days a week and stays active. 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 ([facility]) HYDROcodone-acetaminophen (NORCO) 5-325 mg per tablet Take 2 tablets by mouth twice daily for 30 days. May take 1 extra daily as needed for breakthrough pain HYDROcodone-acetaminophen (NORCO) 5-325 mg per tablet Take 2 tablets by mouth twice daily for 30 days. May take 1 extra daily as needed for breakthrough pain Do not start before April 26, 2022. HYDROcodone-acetaminophen (NORCO) 5-325 mg per tablet Take 2 tablets by mouth twice daily for 30 days. May take 1 extra daily as needed for breakthrough pain Do not start before May 26, 2022. HYDROcodone-acetaminophen (NORCO) 5-325 mg per tablet Take 2 tablets by mouth twice daily. May take1 extra daily as needed for breakthrough pain LORazepam (ATIVAN) 1 mg tablet Take 0.5-1 tablets by mouth once daily as needed for anxiety for up to 60 days. May fill today metoprolol succinate ER (TOPROL XL) 25 mg 24 hr tablet Take 0.5 tablets by mouth twice daily. ([facility]) potassium chloride (KLOR-CON 10) 10 mEq tablet Take 1 tablet by mouth daily with breakfast. ([facility]) Cholecalciferol, Vitamin D3, 50 mcg (2,000 unit) cap Take 1 capsule by mouth once daily. losartan (COZAAR) 25 mg tablet Take 25 mg by mouth once daily. clopidogrel (PLAVIX) 75 mg tablet TAKE 4 TABLETS tonight only, then TAKE 1 TABLET EVERY MORNING rosuvastatin (CRESTOR) 5 mg tablet Take 20 mg by mouth once daily. aspirin, enteric coated (ASPIRIN, ENTERIC COATED) 81 mg EC tablet Take 81 mg by mouth once daily. MULTIVITAMIN ORAL DAILY No current facility-administered medications for this visit. Review of Systems Objective BP 142/78 Pulse 61 Wt 111.6 kg (246 lb) SpO2 96% BMI 34.80 kg/m Last 5 Encounter Wt Readings: Date: Wt: 06/23/2022 111.6 kg (246 lb) 03/27/2022 109.8 kg (242 lb) 01/23/2022 109.3 kg (241 lb) 11/21/2021 108.9 kg (240 lb) 09/26/2021 108.4 kg (239 lb) No waist measurement recorded Estimated body mass index is 34.8 kg/m as calculated from the following: Height as of 01/19/17: 179.1 cm (5' 10.5). Weight as of this encounter: 111.6 kg (246 lb). Last 5 Encounter BP Readings: Date: BP: 06/23/2022 142/78 03/27/2022 140/74 01/23/2022 138/78 11/21/2021 128/70 09/26/2021 126/72 Physical Exam Vitals reviewed. Constitutional: Appearance: Normal appearance. Eyes: Conjunctiva/sclera: Conjunctivae normal. Cardiovascular: Rate and Rhythm: Normal rate and regular rhythm. Heart sounds: Normal heart sounds. Pulmonary: Effort: Pulmonary effort is normal. Breath sounds: Normal breath sounds. Musculoskeletal: Right lower leg: Edema (Trace pretibial) present. Left lower leg: Edema (Trace pretibial) present. Skin: General: Skin is warm and dry. Neurological: General: No focal deficit present. Mental Status: He is alert and oriented to person, place, and time. Psychiatric: Mood and Affect: Mood normal. Behavior: Behavior normal. Thought Content: Thought content normal. Judgment: Judgment normal. Component Latest Ref Rng & Units 05/18/2021 06/08/2022 Cannabinoid Quant, Urine <16 ng/mL <16 <16 Benzoylecognine Quant, Urine <24 ng/mL <24 6-Acetylmorphine Quant, Urine <5 ng/mL <5 <5 Amphetamine Quant, Urine <5 ng/mL <5 <5 Methamphetamine Quant, Urine <8 ng/mL <8 <8 Buprenorphine Quant, Urine <20 ng/mL <20 <20 Norbuprenorphine Quant, Urine <20 ng/mL <20 <20 Methadone Quant, Urine <16 ng/mL <16 <16 EDDP Quant, Urine <6 ng/mL <6 <6 Tramadol Quant, Urine <25 ng/mL <25 <25 Desmethyltramadol Quant, Urine <20 ng/mL <20 <20 Fentanyl Quant, Urine <6 ng/mL <6 <6 Norfentanyl Quant, Urine <6 ng/mL <6 <6 Codeine Quant, Urine <11 ng/mL <11 <11 Morphine Quant, Urine <10 ng/mL <10 <10 Dihydrocodeine Quant, Urine <5 ng/mL 734 (H) 2,156 (H) Hydrocodone Quant, Urine <8 ng/mL 3,516 (H) >5,270 (H) Oxycodone Quant, Urine <10 ng/mL 68 (H) <10 Hydromorphone Quant, Urine <5 ng/mL 3,392 (H) 2,701 (H) Oxymorphone Quant, Urine <5 ng/mL 2,103 (H) <5 Creatinine,Ur Pain Melendez 46.8 - 314.5 mg/dL 318.0 (H) Urine pH, Pain Melendez 4.5 - 8.0 6.9 Specific [place],Ur Pain Melendez 1.002 - 1.030 1.017 Oxidants,Ur <200 mg/L 113 Specimen Validity Nitrites <500 mg/L 70 (H) 79 Specimen Validity Chromate <50 mg/L <10 <10 Specimen Validity Quality Specimen quality results within acceptable limits. Specimen quality results within acceptable limits Note,Ur Pain Melendez This test is for Medical use only. WBC 3.70 - 11.00 k/uL 5.30 4.86 RBC 4.20 - 6.00 m/uL 4.87 4.51 Hemoglobin 13.0 - 17.0 g/dL 14.3 13.6 Hematocrit 39.0 - 51.0 % 44.4 41.2 MCV 80.0 - 100.0 fL 91.2 91.4 MCH 26.0 - 34.0 pg 29.4 30.2 MCHC 30.5 - 36.0 g/dL 32.2 33.0 RDW-CV 11.5 - 15.0 % 12.9 13.5 Platelet Count 150 - 400 k/uL 273 253 MPV 9.0 - 12.7 fL 10.2 10.2 Neut% % 64.2 Abs Neut (ANC) 1.45 - 7.50 k/uL 3.38 Lymph% % 24.7 Abs Lymph 1.00 - 4.00 k/uL 1.31 Nicholas% % 9.4 Abs Nicholas <0.87 k/uL 0.50 Eosin% % 1.1 Abs Eosin <0.46 k/uL 0.06 Baso% % 0.6 Abs Baso <0.11 k/uL 0.03 Nucleated Reds 0 /100 WBC 0.0 Absolute nRBC <0.01 k/uL <0.01 <0.01 Diff Type Auto Diff Benzoylecgonine Quant, Urine <24 ng/mL <24 Protein, Total 6.3 - 8.0 g/dL 6.8 6.5 Albumin 3.9 - 4.9 g/dL 4.1 4.1 Calcium 8.5 - 10.2 mg/dL 9.6 9.2 Bilirubin, Total 0.2 - 1.3 mg/dL 0.3 0.3 Alkaline Phosphatase 38 - 113 U/L 104 104 AST 14 - 40 U/L 16 15 Glucose 74 - 99 mg/dL 111 (H) 102 (H) BUN 9 - 24 mg/dL 13 13 Creatinine 0.73 - 1.22 mg/dL 0.84 0.78 Sodium 136 - 144 mmol/L 141 140 Potassium 3.7 - 5.1 mmol/L 4.5 4.4 Chloride 97 - 105 mmol/L 104 105 CO2 22 - 30 mmol/L 27 25 Anion Gap 9 - 18 mmol/L 10 10 ALT 10 - 54 U/L 10 11 eGFR- >60 eGFR-All Other Races . >60 eGFR >=60 mL/min/1.73m 99 Cholesterol, Total <200 mg/dL 150 136 Triglyceride <150 mg/dL 61 84 HDL Cholesterol >39 mg/dL 45 46 LDL Cholesterol <100 mg/dL 93 73 Non HDL Cholesterol <130 mg/dL 105 90 Fasting Time hrs 12 10 VLDL Cholesterol <30 mg/dL 12 17 TC:HDL Ratio <5.10 3.33 2.96 LDL:HDL Ratio <2.54 2.07 1.59 Phencyclidine Negative Negative Benzodiazepines Urine Negative Negative Cocaine Urine Negative Negative Amphetamines Negative Negative Cannabinoids, Urine Negative Negative Opiates Negative Preliminary positive (A) Barbiturates Negative Negative Ethanol, Urine <11 mg/dL <11 Oxycodone, Urine Negative Negative Specimen Validity Creatinine 20.0 - 300.0 mg/dL 365.0 (H) Specimen Validity PH 4.5 - 8.0 5.4 Specimen Validity Specific [place] 1.003 - 1.035 1.020 Specimen Validity Oxidants <200 mg/L 38 Hemoglobin A1C 4.3 - 5.6 % 5.9 (H) 5.7 (H) Estimated Average Glucose mg/dL 123 117 Assessment and Plan ASSESSMENT/PLAN: 1. Chronic bilateral low back pain with bilateral sciatica - ICD9: 724.2, 724.3, 338.29, ICD10: M54.42, M54.41, G89.29 (primary diagnosis) Stable with control of chronic pain. No signs of diversion or abuse of medication(s); no adverse effects. Continue present management. - HYDROCODONE 5 MG-ACETAMINOPHEN 325 MG TABLET - HYDROCODONE 5 MG-ACETAMINOPHEN 325 MG TABLET - HYDROCODONE 5 MG-ACETAMINOPHEN 325 MG TABLET 2. Mixed hyperlipidemia - ICD9: 272.2, ICD10: E78.2 - good control - Continue current medication. - Discussed the benefits of regular aerobic exercise and weight loss. - Encouraged following a low carbohydrate, healthy oil intake diet. 3. IFG (impaired fasting glucose) - ICD9: 790.21, ICD10: R73.01 Needs to keep working on diet and exercise with lifestyle changes for effective weight loss as wellas prevention of DM, and control of BP and lipids. 4. DDD (degenerative disc disease), lumbar - ICD9: 722.52, ICD10: M51.36 As above - HYDROCODONE 5 MG-ACETAMINOPHEN 325 MG TABLET - HYDROCODONE 5 MG-ACETAMINOPHEN 325 MG TABLET - HYDROCODONE 5 MG-ACETAMINOPHEN 325 MG TABLET 5. Lumbar stenosis with neurogenic claudication - ICD9: 724.03, ICD10: M48.062 As above - HYDROCODONE 5 MG-ACETAMINOPHEN 325 MG TABLET - HYDROCODONE 5 MG-ACETAMINOPHEN 325 MG TABLET - HYDROCODONE 5 MG-ACETAMINOPHEN 325 MG TABLET 6. Encounter for immunization - ICD9: V03.89, ICD10: Z23 - INFLUENZA SEASONAL QUADRIVALENT HIGH DOSE AGE 65+ Abel Pablo MD documented [facility] History of Present illness Narrative* Abel Pablo MD - 03/27/2022 8:06 AM EDT This note was created using Linq3ter. Subjective Moshe Zimmerman is a 67 year old male. Patient presents with: Follow Up SUBJECTIVE: Moshe Zimmerman is a 67 year old year old gentleman here today for 2 month follow up appointment forreview of medical conditions. Noted increased swelling in feet. Resolved for a couple years and stopped the water pill after about 6 months. Cardiology stopped since was better. Down to once yearly. Was doing well till couple weeks ago. Not walking as much as when was working. Sitting more. Gained weight. Had been exercising (in work gym) to try to lose weight. Not effective. Going to start back 2 days a week. Sunday and Sunday. Also plans to walk dog in evening. Noted that feet pain much less since not working daily. 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 May take1 extra daily as needed for breakthrough pain HYDROcodone-acetaminophen (NORCO) 5-325 mg per tablet Take 2 tablets by mouth twice daily. May take1 extra daily as needed for breakthrough pain LORazepam (ATIVAN) 1 mg tablet Take 0.5-1 tablets by mouth once daily as needed for anxiety for up to 60 days. May fill today metoprolol succinate ER (TOPROL XL) 25 mg 24 hr tablet Take 0.5 tablets by mouth twice daily. ([facility]) furosemide (LASIX) 20 mg tablet Take 1 tablet by mouth once daily. ([facility]) potassium chloride (KLOR-CON 10) 10 mEq tablet Take 1 tablet by mouth daily with breakfast. ([facility]) Cholecalciferol, Vitamin D3, 50 mcg (2,000 unit) cap Take 1 capsule by mouth once daily. losartan (COZAAR) 25 mg tablet Take 25 mg by mouth once daily. clopidogrel (PLAVIX) 75 mg tablet TAKE 4 TABLETS tonight only, then TAKE 1 TABLET EVERY MORNING rosuvastatin (CRESTOR) 5 mg tablet Take 20 mg by mouth once daily. aspirin, enteric coated (ASPIRIN, ENTERIC COATED) 81 mg EC tablet Take 81 mg by mouth once daily. MULTIVITAMIN ORAL DAILY No current facility-administered medications for this visit. Review of Systems Objective BP 140/74 Pulse 66 Wt 109.8 kg (242 lb) BMI 34.23 kg/m Last 5 Encounter Wt Readings: Date: Wt: 03/27/2022 109.8 kg (242 lb) 01/23/2022 109.3 kg (241 lb) 11/21/2021 108.9 kg (240 lb) 09/26/2021 108.4 kg (239 lb) 07/29/2021 108 kg (238 lb) No waist measurement recorded Estimated body mass index is 34.23 kg/m as calculated from the following: Height as of 01/19/17: 179.1 cm (5' 10.5). Weight as of this encounter: 109.8 kg (242 lb). Last 5 Encounter BP Readings: Date: BP: 03/27/2022 140/74 01/23/2022 138/78 11/21/2021 128/70 09/26/2021 126/72 07/29/2021 122/68 Physical Exam Vitals reviewed. Constitutional: Appearance: Normal appearance. Eyes: Conjunctiva/sclera: Conjunctivae normal. Cardiovascular: Rate and Rhythm: Normal rate and regular rhythm. Heart sounds: Normal heart sounds. Pulmonary: Effort: Pulmonary effort is normal. Breath sounds: Normal breath sounds. Musculoskeletal: Right lower le+ Pitting Edema present. Left lower le+ Pitting Edema present. Skin: General: Skin is warm and dry. Neurological: General: No focal deficit present. Mental Status: He is alert and oriented to person, place, and time. Psychiatric: Mood and Affect: Mood normal. Behavior: Behavior normal. Thought Content: Thought content normal. Judgment: Judgment normal. Assessment and Plan Encounter Diagnosis ICD-10-CM 1. Bilateral leg edema R60.0 Follow up with cardiology sooner as needed since swelling started off diuretic 2. IFG (impaired fasting glucose) R73.01 HGB A1C 3. DDD (degenerative disc disease), lumbar M51.36 HYDROcodone-acetaminophen (NORCO) 5-325 mg per tablet HYDROcodone-acetaminophen (NORCO) 5-325 mg per tablet HYDROcodone-acetaminophen (NORCO) 5-325 mg per tablet 4. Chronic bilateral low back pain with bilateral sciatica M54.42 HYDROcodone- acetaminophen (NORCO)5-325 mg per tablet M54.41 HYDROcodone-acetaminophen (NORCO) 5-325 mg per tablet G89.29 HYDROcodone-acetaminophen (NORCO) 5-325 mg per tablet 5. Lumbar stenosis with neurogenic claudication M48.062 HYDROcodone- acetaminophen (NORCO) 5-325 mg per tablet HYDROcodone-acetaminophen (NORCO) 5-325 mg per tablet HYDROcodone-acetaminophen (NORCO) 5-325 mg per tablet 6. Encounter for long-term current use of medication Z79.899 TOX SCREEN ROUT UR PAIN PANEL, UR QUANT 7. Need for vaccination Z23 PNEUMOCOCCAL VACCINE (PREVNAR 20) Above issues addressed with patient. Patient involved in shared decision making for management of medical issues. Stable with control of chronic pain except needs some for breakthrough pain some days. Some days takes less.At this time benefits outweigh risks. Continue to monitor for adverse effects and indications for decreasing dose or tapering off. No signs of diversion or abuse of medication(s); no adverse effects. Continue present management. Further evaluation and treatment as indicated. History and medications reviewed. Epic updated as needed Refills and/or prescriptions taken care of and meds adjusted as indicated after reviewed history, exam and labs. Health Maintenance reviewed. Updated record and/or ordered tests as recorded. Encouraged on efforts at healthy diet and regular exercise and adequate sleep. Needs to keep working on diet and exercise with lifestyle changes for effective weight loss as well as prevention of DM,and control of BP and lipids. Abel Pablo MD documented [facility] History of Present illness Narrative* Abel Pbalo MD - 01/23/2022 8:15 AM EDT This note was created using Rackup. Subjective Moshe Zimmerman is a 66 year old male. Patient presents with: Follow Up SUBJECTIVE: Moshe Zimmerman is a 66 year old year old gentleman here today for 2 month follow up appointment forreview of medical conditions. Overall doing well. Discussed will be on Medicare. Pain meds still working though not as long. Lasts just an hour instead of 3 to 4 hours. 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 Do not start before December 25, 2021. metoprolol succinate ER (TOPROL XL) 25 mg 24 hr tablet Take 0.5 tablets by mouth twice daily. ([facility]) furosemide (LASIX) 20 mg tablet Take 1 tablet by mouth once daily. ([facility]) potassium chloride (KLOR-CON 10) 10 mEq tablet Take 1 tablet by mouth daily with breakfast. ([facility]) Cholecalciferol, Vitamin D3, 50 mcg (2,000 unit) cap Take 1 capsule by mouth once daily. losartan (COZAAR) 25 mg tablet Take 25 mg by mouth once daily. clopidogrel (PLAVIX) 75 mg tablet TAKE 4 TABLETS tonight only, then TAKE 1 TABLET EVERY MORNING rosuvastatin (CRESTOR) 5 mg tablet Take 20 mg by mouth once daily. aspirin, enteric coated (ASPIRIN, ENTERIC COATED) 81 mg EC tablet Take 81 mg by mouth once daily. MULTIVITAMIN ORAL DAILY HYDROcodone-acetaminophen (NORCO) 5-325 mg per tablet Take 2 tablets by mouth twice daily as neededfor pain for up to 30 days. Do not start before November 25, 2021. LORazepam (ATIVAN) 1 mg tablet Take 0.5-1 tablets by mouth once daily as needed for anxiety for up to 60 days. May fill today HYDROcodone-acetaminophen (NORCO) 5-325 mg per tablet Take 2 tablets by mouth twice daily as neededfor pain for up to 30 days. HYDROcodone-acetaminophen (NORCO) 5-325 mg per tablet Take 2 tablets by mouth twice daily as neededfor pain for up to 30 days. Do not start before October 26, 2021. HYDROcodone-acetaminophen (NORCO) 5-325 mg per tablet Take 2 tablets by mouth twice daily as neededfor pain for up to 30 days. Do not start before August 26, 2021. No current facility-administered medications for this visit. Review of Systems Objective BP 138/78 Pulse (!) 51 Wt 109.3 kg (241 lb) SpO2 97% BMI 34.09 kg/m Last 5 Encounter Wt Readings: Date: Wt: 01/23/2022 109.3 kg (241 lb) 11/21/2021 108.9 kg (240 lb) 09/26/2021 108.4 kg (239 lb) 07/29/2021 108 kg (238 lb) 05/27/2021 103.4 kg (228 lb) No waist measurement recorded Estimated body mass index is 34.09 kg/m as calculated from the following: Height as of 01/19/17: 179.1 cm (5' 10.5). Weight as of this encounter: 109.3 kg (241 lb). Last 5 Encounter BP Readings: Date: BP: 01/23/2022 138/78 11/21/2021 128/70 09/26/2021 126/72 07/29/2021 122/68 05/27/2021 150/80 Physical Exam Vitals reviewed. Constitutional: Appearance: Normal appearance. Eyes: Conjunctiva/sclera: Conjunctivae normal. Cardiovascular: Rate and Rhythm: Normal rate and regular rhythm. Heart sounds: Normal heart sounds. Pulmonary: Effort: Pulmonary effort is normal. Breath sounds: Normal breath sounds. Skin: General: Skin is warm and dry. Neurological: General: No focal deficit present. Mental Status: He is alert and oriented to person, place, and time. Psychiatric: Mood and Affect: Mood normal. Behavior: Behavior normal. Thought Content: Thought content normal. Judgment: Judgment normal. Assessment and Plan ASSESSMENT/PLAN: 1. DDD (degenerative disc disease), lumbar - ICD9: 722.52, ICD10: M51.36 (primary diagnosis) Stable with control of chronic pain except needs some for breakthrough pain some days. Some days takes less. No signs of diversion or abuse of medication(s); no adverse effects. Continue present management. Further evaluation and treatment as indicated. - HYDROCODONE 5 MG-ACETAMINOPHEN 325 MG TABLET - HYDROCODONE 5 MG-ACETAMINOPHEN 325 MG TABLET 2. Chronic bilateral low back pain with bilateral sciatica - ICD9: 724.2, 724.3, 338.29, ICD10: M54.42, M54.41, G89.29 See above - HYDROCODONE 5 MG-ACETAMINOPHEN 325 MG TABLET - HYDROCODONE 5 MG-ACETAMINOPHEN 325 MG TABLET 3. Lumbar stenosis with neurogenic claudication - ICD9: 724.03, ICD10: M48.062 See above - HYDROCODONE 5 MG-ACETAMINOPHEN 325 MG TABLET - HYDROCODONE 5 MG-ACETAMINOPHEN 325 MG TABLET 4. Tobacco use disorder - ICD9: 305.1, ICD10: F17.200 - Cessation encouraged. Continue follow up with cardiology for cardiac meds. Abel Pablo MD [facility] History of Present illness Narrative* Abel Pablo MD - 11/21/2021 8:00 AM EDT This note was created using Rackup. Subjective Moshe Zimmerman is a 66 year old male. Patient presents with: Follow Up SUBJECTIVE: Moshe Zimmerman is a 66 year old year old gentleman here today for 2 month follow up appointment forreview of medical conditions. Plans to lose 40 pounds by cutting back on sugars (no more candy laying around and cut back on cake, cookies and pies); also eating more protein like peanuts for snacks. Also exercise--at work gym before works start. Also riding bike to work (10 minutes; uphill on way home). Gained weight this past winter when was more sedentary. Did not go hunting this past winter as before (brother did not go). Otherwise, doing well. Pain meds still effective. Miralax effective to prevent OIC. Lorazepam ran out of refills last month. Did okay but would do better if had on hand to keep anxiety controlled. Stable from cardiac standpoint. Saw Dr. Elias already this year and will see yearly. 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 Do not start before October 26, 2021. HYDROcodone-acetaminophen (NORCO) 5-325 mg per tablet Take 2 tablets by mouth twice daily as neededfor pain for up to 30 days. HYDROcodone-acetaminophen (NORCO) 5-325 mg per tablet Take 2 tablets by mouth twice daily as neededfor pain for up to 30 days. Do not start before October 26, 2021. HYDROcodone-acetaminophen (NORCO) 5-325 mg per tablet Take 2 tablets by mouth twice daily as neededfor pain for up to 30 days. Do not start before August 26, 2021. LORazepam (ATIVAN) 1 mg tablet Take 0.5-1 tablets by mouth once daily as needed for anxiety for up to 60 days. May fill today Do not start before August 21, 2021. metoprolol succinate ER (TOPROL XL) 25 mg 24 hr tablet Take 0.5 tablets by mouth twice daily. ([facility]) furosemide (LASIX) 20 mg tablet Take 1 tablet by mouth once daily. ([facility]) potassium chloride (KLOR-CON 10) 10 mEq tablet Take 1 tablet by mouth daily with breakfast. ([facility]) Cholecalciferol, Vitamin D3, 50 mcg (2,000 unit) cap Take 1 capsule by mouth once daily. losartan (COZAAR) 25 mg tablet Take 25 mg by mouth once daily. clopidogrel (PLAVIX) 75 mg tablet TAKE 4 TABLETS tonight only, then TAKE 1 TABLET EVERY MORNING rosuvastatin (CRESTOR) 5 mg tablet Take 20 mg by mouth once daily. aspirin, enteric coated (ASPIRIN, ENTERIC COATED) 81 mg EC tablet Take 81 mg by mouth once daily. MULTIVITAMIN ORAL DAILY No current facility-administered medications for this visit. FAMILY HISTORY Problem Relation Age of Onset None Unknown Cancer Mother unknown primary Coronary Artery Disease Father Review of Systems Objective BP 138/78 Pulse 68 Wt 108.9 kg (240 lb) BMI 33.95 kg/m Last 5 Encounter Wt Readings: Date: Wt: 11/21/2021 108.9 kg (240 lb) 09/26/2021 108.4 kg (239 lb) 07/29/2021 108 kg (238 lb) 05/27/2021 103.4 kg (228 lb) 03/28/2021 107.5 kg (237 lb) No waist measurement recorded Estimated body mass index is 33.95 kg/m as calculated from the following: Height as of 01/19/17: 179.1 cm (5' 10.5). Weight as of this encounter: 108.9 kg (240 lb). Last 5 Encounter BP Readings: Date: BP: 11/21/2021 138/78 09/26/2021 126/72 07/29/2021 122/68 05/27/2021 150/80 03/28/2021 122/82 Physical Exam Vitals reviewed. Constitutional: Appearance: Normal appearance. Eyes: Conjunctiva/sclera: Conjunctivae normal. Cardiovascular: Rate and Rhythm: Normal rate and regular rhythm. Heart sounds: Normal heart sounds. Pulmonary: Effort: Pulmonary effort is normal. Breath sounds: Normal breath sounds. Musculoskeletal: Right lower leg: Edema (trace) present. Left lower leg: Edema (trace) present. Skin: General: Skin is warm and dry. Neurological: General: No focal deficit present. Mental Status: He is alert and oriented to person, place, and time. Psychiatric: Mood and Affect: Mood normal. Behavior: Behavior normal. Thought Content: Thought content normal. Judgment: Judgment normal. Assessment and Plan Encounter Diagnosis ICD-10-CM 1. S/P coronary artery stents placement Z95.5 stable; yearly follow up with Dr. Elias now 2. DDD (degenerative disc disease), lumbar M51.36 HYDROcodone-acetaminophen (NORCO) 5-325 mg per tablet HYDROcodone-acetaminophen (NORCO) 5-325 mg per tablet 3. Chronic bilateral low back pain with bilateral sciatica M54.42 HYDROcodone- acetaminophen (NORCO)5-325 mg per tablet M54.41 HYDROcodone-acetaminophen (NORCO) 5-325 mg per tablet G89.29 4. Lumbar stenosis with neurogenic claudication M48.062 HYDROcodone- acetaminophen (NORCO) 5-325 mg per tablet HYDROcodone-acetaminophen (NORCO) 5-325 mg per tablet 5. Panic attacks F41.0 LORazepam (ATIVAN) 1 mg tablet ASSESSMENT/PLAN: ASSESSMENT/PLAN: 1. DDD (degenerative disc disease), lumbar - ICD9: 722.52, ICD10: M51.36 (primary diagnosis) Stable with control of chronic pain. Able to stay active and work. At this time benefits outweigh risks. Continue to monitor for adverse effects and indications for decreasing dose or tapering off. No signs of diversion or abuse of medication(s); no adverse effects. Continue present management. - HYDROCODONE 5 MG-ACETAMINOPHEN 325 MG TABLET - HYDROCODONE 5 MG-ACETAMINOPHEN 325 MG TABLET 2. Chronic bilateral low back pain with bilateral sciatica - ICD9: 724.2, 724.3, 338.29, ICD10: M54.42, M54.41, G89.29 As noted above - HYDROCODONE 5 MG-ACETAMINOPHEN 325 MG TABLET - HYDROCODONE 5 MG-ACETAMINOPHEN 325 MG TABLET 3. Lumbar stenosis with neurogenic claudication - ICD9: 724.03, ICD10: M48.062 As noted above - HYDROCODONE 5 MG-ACETAMINOPHEN 325 MG TABLET - HYDROCODONE 5 MG-ACETAMINOPHEN 325 MG TABLET 4. Panic attacks - ICD9: 300.01, ICD10: F41.0 Was able to get by this past month without med but helps to have on hand to prevent anxiety from escalating. Continues to use just prn and minimally. At this time benefits outweigh risks. Continue tomonitor for adverse effects and indications for decreasing dose or tapering off. - LORAZEPAM 1 MG TABLET 5. S/P coronary artery stents placement - ICD9: V45.82, ICD10: Z95.5 Stable on current meds. Continue follow up with Dr. Elias yearly. Has lab orders (standing)--plan to do twice yearly. Once soon then in 6 months 6. Obesity--making changes in diet and exercise as noted in HPI. Goal weight loss as discussed. Abel Pablo MD Medical Decision Making: Problems: Moderate: 2+ stable chronic illnesses Risk: Moderate: Drug management Medical Decision Making Level: 4 - Moderate [facility] History of Present illness Narrative* Abel Pablo MD - 09/26/2021 8:08 AM EST This note was created using Linq[employer]ter. Subjective Moshe Zimmerman is a 66 year old male. Patient presents with: Follow Up SUBJECTIVE: Moshe Zimmerman is a 66 year old year old gentleman here today for 2 month follow up appointment forreview of medical conditions. Overall doing pretty good. Pain in right arm. Arm had COVID vaccine 1 month ago. For 2 days was hard to lift. Still feels pain when tries to abduct arm. Pain shoots down the arm. Slowly getting better. Not throbbing the past fw days. Sore toes noted from sides of nail. Annoying more than painful. Discussed did not get call regarding refill on his pain med from [facility] as usual. 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 Do not start before September 25, 2021. LORazepam (ATIVAN) 1 mg tablet Take 0.5-1 tablets by mouth once daily as needed for anxiety for up to 60 days. May fill today Do not start before August 21, 2021. metoprolol succinate ER (TOPROL XL) 25 mg 24 hr tablet Take 0.5 tablets by mouth twice daily. ([facility]) furosemide (LASIX) 20 mg tablet Take 1 tablet by mouth once daily. ([facility]) potassium chloride (KLOR-CON 10) 10 mEq tablet Take 1 tablet by mouth daily with breakfast. ([facility]) Cholecalciferol, Vitamin D3, 50 mcg (2,000 unit) cap Take 1 capsule by mouth once daily. losartan (COZAAR) 25 mg tablet Take 25 mg by mouth once daily. clopidogrel (PLAVIX) 75 mg tablet TAKE 4 TABLETS tonight only, then TAKE 1 TABLET EVERY MORNING rosuvastatin (CRESTOR) 5 mg tablet Take 20 mg by mouth once daily. aspirin, enteric coated (ASPIRIN, ENTERIC COATED) 81 mg EC tablet Take 81 mg by mouth once daily. MULTIVITAMIN ORAL DAILY HYDROcodone-acetaminophen (NORCO) 5-325 mg per tablet Take 2 tablets by mouth twice daily as neededfor pain for up to 30 days. Do not start before August 26, 2021. HYDROcodone-acetaminophen (NORCO) 5-325 mg per tablet Take 2 tablets by mouth twice daily as neededfor pain for up to 30 days. No current facility-administered medications for this visit. Review of Systems Objective BP 126/72 Pulse 66 Wt 108.4 kg (239 lb) BMI 33.81 kg/m Physical Exam Vitals reviewed. Constitutional: Appearance: Normal appearance. Eyes: Conjunctiva/sclera: Conjunctivae normal. Cardiovascular: Rate and Rhythm: Normal rate and regular rhythm. Heart sounds: Normal heart sounds. Pulmonary: Effort: Pulmonary effort is normal. Breath sounds: Normal breath sounds. Skin: General: Skin is warm and dry. Neurological: General: No focal deficit present. Mental Status: He is alert and oriented to person, place, and time. Psychiatric: Mood and Affect: Mood normal. Behavior: Behavior normal. Thought Content: Thought content normal. Judgment: Judgment normal. Last labs reviewed. Assessment and Plan Encounter Diagnosis ICD-10-CM 1. DDD (degenerative disc disease), lumbar M51.36 HYDROcodone-acetaminophen (NORCO) 5-325 mg per tablet HYDROcodone-acetaminophen (NORCO) 5-325 mg per tablet HYDROcodone-acetaminophen (NORCO) 5-325 mg per tablet DISCONTINUED: HYDROcodone-acetaminophen (NORCO) 5-325 mg per tablet 2. Chronic bilateral low back pain with bilateral sciatica M54.42 HYDROcodone- acetaminophen (NORCO)5-325 mg per tablet M54.41 HYDROcodone-acetaminophen (NORCO) 5-325 mg per tablet G89.29 HYDROcodone-acetaminophen (NORCO) 5-325 mg per tablet DISCONTINUED: HYDROcodone-acetaminophen (NORCO) 5-325 mg per tablet 3. Lumbar stenosis with neurogenic claudication M48.062 HYDROcodone- acetaminophen (NORCO) 5-325 mg per tablet HYDROcodone-acetaminophen (NORCO) 5-325 mg per tablet HYDROcodone-acetaminophen (NORCO) 5-325 mg per tablet DISCONTINUED: HYDROcodone-acetaminophen (NORCO) 5-325 mg per tablet 4. Degeneration of lumbar intervertebral disc M51.36 HYDROcodone-acetaminophen (NORCO) 5-325 mg pertablet ASSESSMENT/PLAN: 1. DDD (degenerative disc disease), lumbar - ICD9: 722.52, ICD10: M51.36 Stable with control of chronic pain. At this time benefits outweigh risks. Continue to monitor for adverse effects and indications for decreasing dose or tapering off. No signs of diversion or abuse of medication(s); no adverse effects. Continue present management. - Patient given instructions use of medications as ordered, intermittent rest, weight loss and improved posture - HYDROCODONE 5 MG-ACETAMINOPHEN 325 MG TABLET - HYDROCODONE 5 MG-ACETAMINOPHEN 325 MG TABLET - HYDROCODONE 5 MG-ACETAMINOPHEN 325 MG TABLET - HYDROCODONE 5 MG-ACETAMINOPHEN 325 MG TABLET 2. Chronic bilateral low back pain with bilateral sciatica - ICD9: 724.2, 724.3, 338.29, ICD10: M54.42, M54.41, G89.29 As above - HYDROCODONE 5 MG-ACETAMINOPHEN 325 MG TABLET - HYDROCODONE 5 MG-ACETAMINOPHEN 325 MG TABLET - HYDROCODONE 5 MG-ACETAMINOPHEN 325 MG TABLET - HYDROCODONE 5 MG-ACETAMINOPHEN 325 MG TABLET 3. Lumbar stenosis with neurogenic claudication - ICD9: 724.03, ICD10: M48.062 As above - HYDROCODONE 5 MG-ACETAMINOPHEN 325 MG TABLET - HYDROCODONE 5 MG-ACETAMINOPHEN 325 MG TABLET - HYDROCODONE 5 MG-ACETAMINOPHEN 325 MG TABLET - HYDROCODONE 5 MG-ACETAMINOPHEN 325 MG TABLET 4. Degeneration of lumbar intervertebral disc - ICD9: 722.52, ICD10: M51.36 As above - HYDROCODONE 5 MG-ACETAMINOPHEN 325 MG TABLET Above issues addressed with patient. Patient involved in shared decision making for management of medical issues. History and medications reviewed. Epic updated as needed Refills and/or prescriptions taken care of and meds adjusted as indicated after reviewed history, exam and labs. Health Maintenance reviewed. Updated record and/or ordered tests as recorded. Encouraged on efforts at healthy diet and regular exercise and adequate sleep. Abel Pablo MD Medical Decision Making: Problems: Moderate: 2+ stable chronic illnesses Risk: Moderate: Drug management Medical Decision Making Level: 4 - Moderate [facility]* Diagnosis DDD (degenerative disc disease), lumbar- Primary Degeneration of lumbar or lumbosacral intervertebral disc Chronic bilateral low back pain with bilateral sciatica Lumbar stenosis with neurogenic claudication Spinal stenosis, lumbar region, with neurogenic claudication Panic attacks Panic disorder without agoraphobia S/P coronary artery stents placement Postsurgical percutaneous transluminal coronary angioplasty status Class 1 obesity due to excess calories without serious comorbidity with body mass index (BMI) of 33.0 to 33.9 in adult [facility]* Diagnosis DDD (degenerative disc disease), lumbar Degeneration of lumbar or lumbosacral intervertebral disc Chronic bilateral low back pain with bilateral sciatica Lumbar stenosis with neurogenic claudication Spinal stenosis, lumbar region, with neurogenic claudication Degeneration of lumbar intervertebral disc Degeneration of lumbar or lumbosacral intervertebral disc [facility] [place] [facility]* Diagnosis DDD (degenerative disc disease), lumbar- Primary Degeneration of lumbar or lumbosacral intervertebral disc Chronic bilateral low back pain with bilateral sciatica Lumbar stenosis with neurogenic claudication Spinal stenosis, lumbar region, with neurogenic claudication Tobacco use disorder [facility] Bilateral leg edema- Primary Edema IFG (impaired fasting glucose) Impaired fasting glucose DDD (degenerative disc disease), lumbar Degeneration of lumbar or lumbosacral intervertebral disc Chronic bilateral low back pain with bilateral sciatica Lumbar stenosis with neurogenic claudication Spinal stenosis, lumbar region, with neurogenic claudication Encounter for long-term current use of medication Need for vaccination Need for prophylactic vaccination and inoculation against unspecified single disease [facility] [place] [facility]* Diagnosis DDD (degenerative disc disease), lumbar Degeneration of lumbar or lumbosacral intervertebral disc Chronic bilateral low back pain with bilateral sciatica Lumbar stenosis with neurogenic claudication Spinal stenosis, lumbar region, with neurogenic claudication [facility] [place] [facility]* Diagnosis Chronic bilateral low back pain with bilateral sciatica- Primary Mixed hyperlipidemia IFG (impaired fasting glucose) Impaired fasting glucose DDD (degenerative disc disease), lumbar Degeneration of lumbar or lumbosacral intervertebral disc Lumbar stenosis with neurogenic claudication Spinal stenosis, lumbar region, with neurogenic claudication Encounter for immunization Need for other specified prophylactic vaccination against single bacterial disease [facility] [place] [facility]* Diagnosis DDD (degenerative disc disease), lumbar Degeneration of lumbar or lumbosacral intervertebral disc Chronic bilateral low back pain with bilateral sciatica Lumbar stenosis with neurogenic claudication Spinal stenosis, lumbar region, with neurogenic claudication [facility] [place] [facility]* Diagnosis Tobacco abuse Tobacco use disorder [facility] [place] [facility]* Diagnosis Chronic bilateral low back pain with bilateral sciatica- Primary DDD (degenerative disc disease), lumbar Degeneration of lumbar or lumbosacral intervertebral disc Erectile dysfunction, unspecified erectile dysfunction type Lumbar stenosis with neurogenic claudication Spinal stenosis, lumbar region, with neurogenic claudication S/P coronary artery stents placement Postsurgical percutaneous transluminal coronary angioplasty status Coronary artery disease involving [place] coronary artery of [place] heart without angina pectoris Primary hypertension Unspecified essential hypertension Class 1 obesity due to excess calories with body mass index (BMI) of 34.0 to 34.9 in adult, unspecified whether serious comorbidity present [facility] [place] [facility]* Diagnosis DDD (degenerative disc disease), lumbar- Primary Degeneration of lumbar or lumbosacral intervertebral disc Chronic bilateral low back pain with bilateral sciatica Lumbar stenosis with neurogenic claudication Spinal stenosis, lumbar region, with neurogenic claudication Primary hypertension Unspecified essential hypertension Class 1 obesity due to excess calories with serious comorbidity and body mass index (BMI) of 33.0 to 33.9 in adult [facility]* Diagnosis DDD (degenerative disc disease), lumbar Degeneration of lumbar or lumbosacral intervertebral disc Chronic bilateral low back pain with bilateral sciatica Lumbar stenosis with neurogenic claudication Spinal stenosis, lumbar region, with neurogenic claudication [facility] Diagnosis Chronic bilateral low back pain with bilateral sciatica- Primary Primary hypertension Unspecified essential hypertension Mixed hyperlipidemia IFG (impaired fasting glucose) Impaired fasting glucose DDD (degenerative disc disease), lumbar Degeneration of lumbar or lumbosacral intervertebral disc Lumbar stenosis with neurogenic claudication Spinal stenosis, lumbar region, with neurogenic claudication Encounter for long-term current use of medication Encounter for immunization Need for other specified prophylactic vaccination against single bacterial disease [facility] Diagnosis Lumbar stenosis with neurogenic claudication- Primary Spinal stenosis, lumbar region, with neurogenic claudication Screening for abdominal aortic aneurysm Screening for other and unspecified cardiovascular conditions Encounter for screening for lung cancer Encounter for immunization Need for other specified prophylactic vaccination against single bacterial disease Screening for prostate cancer Special screening for malignant neoplasm of prostate Screening for colon cancer Special screening for malignant neoplasms, colon DDD (degenerative disc disease), lumbar Degeneration of lumbar or lumbosacral intervertebral disc Chronic bilateral low back pain with bilateral sciatica Tobacco use disorder [facility] Diagnosis DDD (degenerative disc disease), lumbar Degeneration of lumbar or lumbosacral intervertebral disc Lumbar stenosis with neurogenic claudication Spinal stenosis, lumbar region, with neurogenic claudication Chronic bilateral low back pain with bilateral sciatica [facility] Diagnosis DDD (degenerative disc disease), lumbar Degeneration of lumbar or lumbosacral intervertebral disc Chronic bilateral low back pain with bilateral sciatica Lumbar stenosis with neurogenic claudication Spinal stenosis, lumbar region, with neurogenic claudication [facility]* Diagnosis DDD (degenerative disc disease), lumbar Degeneration of lumbar or lumbosacral intervertebral disc Lumbar stenosis with neurogenic claudication Spinal stenosis, lumbar region, with neurogenic claudication Chronic bilateral low back pain with bilateral sciatica documented in [facility] Medicare annual wellness visit, subsequent- Primary Routine general medical examination at a health care facility DDD (degenerative disc disease), lumbar Degeneration of lumbar or lumbosacral intervertebral disc Lumbar stenosis with neurogenic claudication Spinal stenosis, lumbar region, with neurogenic claudication Chronic obstructive pulmonary disease, unspecified COPD type (HCC) Chronic bilateral low back pain with bilateral sciatica Primary hypertension Unspecified essential hypertension Bilateral lower extremity edema Edema Cigarette smoker Tobacco use disorder Screening for depression Screening for prostate cancer Special screening for malignant neoplasm of prostate Screening for colon cancer Special screening for malignant neoplasms, colon [facility] [place] [facility] Diagnosis Chronic bilateral low back pain with bilateral sciatica- Primary Essential (primary) hypertension Unspecified essential hypertension Pain of left hip DDD (degenerative disc disease), lumbar Degeneration of lumbar or lumbosacral intervertebral disc Lumbar stenosis with neurogenic claudication Spinal stenosis, lumbar region, with neurogenic claudication Encounter for immunization Need for other specified prophylactic vaccination against single bacterial disease documented in this encounter [facility] note* Diagnosis Chronic bilateral low back pain with bilateral sciatica- Primary Degeneration of intervertebral disc of lumbar region with discogenic back pain and lower extremity pain Lumbar stenosis with neurogenic claudication Spinal stenosis, lumbar region, with neurogenic claudication Essential (primary) hypertension Unspecified essential hypertension Mixed hyperlipidemia Impaired glucose metabolism Impaired glucose tolerance test High risk medication use Encounter for long-term (current) use of other medications Encounter for drug screening Other specified examination documented in this encounter [facility] note* Diagnosis DDD (degenerative disc disease), lumbar Degeneration of lumbar or lumbosacral intervertebral disc Lumbar stenosis with neurogenic claudication Spinal stenosis, lumbar region, with neurogenic claudication Chronic bilateral low back pain with bilateral sciatica [facility] [place] [facility]* Diagnosis Chronic bilateral low back pain with right-sided sciatica- Primary Chronic obstructive pulmonary disease, unspecified COPD type (HCC) DDD (degenerative disc disease), lumbar Degeneration of lumbar or lumbosacral intervertebral disc Lumbar stenosis with neurogenic claudication Spinal stenosis, lumbar region, with neurogenic claudication S/P coronary artery stents placement Postsurgical percutaneous transluminal coronary angioplasty status Encounter for immunization Need for other specified prophylactic vaccination against single bacterial disease Tobacco use disorder Class 1 obesity due to excess calories with body mass index (BMI) of 34.0 to 34.9 in adult, unspecified whether serious comorbidity present Radiculopathy, lumbar region Thoracic or lumbosacral neuritis or radiculitis, unspecified documented in this encounter [facility] for referral (narrative)* Diagnostic Procedure Only (Routine) - Pending Review Specialty Diagnoses / Procedures Referred By Nick t Referred To Contact US IMAGING Diagnoses Screening for abdominal aortic aneurysm Procedures US SCREENING FOR AAA (2017) US ABDOMINAL AORTA REAL TIME SCREEN STUDY AAA Domonique Devine APRN.CNS [address] [facility] [place] [address] [place] [address] Referral ID Status Reason Start Date Expiration Date Visits Requested Visits Authorized [id number] Pending Review Auto-Generat ed Referral 12/31/2023 01/29/2025 1 1 [facility] (narrative)No reason for referral information availableWFirelands Regional [facility] Work Phone: Summary Purpose Family History No Family History Records Found Relationship Condition Age at Onset Recorded Date/T jeyson father Cardiac disease Unknown mother Malignant neoplasm Unknown Advance Directives No Advanced Directives Records Found Advance Directive Response Recorded Date/ Time Living Will Yes January 12, 2021 1 :19pm Do you have a Healthcare Power of Press Tool Maker? Yes January 12, 2021 1:19pm Advance Directives Yes March 12 7:49am Chief Complaint and Reason for Visit Chief Complaint Admit Date 1 Y FU January 08, 2025 12:42 pm CAD February 23, 2025 10:42 am Amb Documentation February 23, 2025 2:26p m Reason for Visit Admit Date Essential (primary) hypertension December 12:42pm Hyperlipidemia January 08, 2025 12:42 pm Nicotine dependence January 08, 2025 12:42 pm History of coronary artery stent placeme nt January 08, 2025 12:42pm Additional Source Comments Source Comments (unrecognize d section and content) In the event this informatio n is protected by the Federal Confidentiality of Alcohol and Drug Abuse Patient Records regulations: The Federal rules restrict any use of the information to criminally investigate or prosecute any alcohol or drug abuse patient.[facility] the event this information is protected by the Federal Confidentiality of Alcohol and Drug Abuse Patient Records regulations: The Federal rules restrict any use of the information to criminally investigate or prosecute any alcohol or drug abuse patient.[facility]In the event this information is protected by the Federal Confidentiality of Alcohol and Drug Abuse Patient Records regulations: The Federal rules restrict any use of the information to criminally investigate or prosecute any alcohol or drug abuse patient.[facility] HospitalIn the event this information is protected by the Federal Confidentiality of Alcohol and Drug Abuse Patient Records regulations: The Federal rules restrict any use of the information to criminally investigate or prosecute any alcohol or drug abuse patient.[facility] HospitalIn the event this information is protected by the Federal Confidentiality of Alcohol and Drug Abuse Patient Records regulations: The Federal rules restrict any use of the information to criminally investigate or prosecute any alcohol or drug abuse patient.[facility] HospitalIn the event this information is protected by the Federal Confidentiality of Alcohol and Drug Abuse Patient Records regulations: The Federal rules restrict any use of the information to criminally investigate or prosecute any alcohol or drug abuse patient.[facility] HospitalIn the event this information is protected by the Federal Confidentiality of Alcohol and Drug Abuse Patient Records regulations: The Federal rules restrict any use of the information to criminally investigate or prosecute any alcohol or drug abuse patient.[facility] HospitalIn the event this information is protected by the Federal Confidentiality of Alcohol and Drug Abuse Patient Records regulations: The Federal rules restrict any use of the information to criminally investigate or prosecute any alcohol or drug abuse patient.[facility] HospitalIn the event this information is protected by the Federal Confidentiality of Alcohol and Drug Abuse Patient Records regulations: The Federal rules restrict any use of the information to criminally investigate or prosecute any alcohol or drug abuse patient.[facility] HospitalIn the event this information is protected by the Federal Confidentiality of Alcohol and Drug Abuse Patient Records regulations: The Federal rules restrict any use of the information to criminally investigate or prosecute any alcohol or drug abuse patient.[facility] HospitalIn the event this information is protected by the Federal Confidentiality of Alcohol and Drug Abuse Patient Records regulations: The Federal rules restrict any use of the information to criminally investigate or prosecute any alcohol or drug abuse patient.[facility] HospitalIn the event this information is protected by the Federal Confidentiality of Alcohol and Drug Abuse Patient Records regulations: The Federal rules restrict any use of the information to criminally investigate or prosecute any alcohol or drug abuse patient.[facility] HospitalIn the event this information is protected by the Federal Confidentiality of Alcohol and Drug Abuse Patient Records regulations: The Federal rules restrict any use of the information to criminally investigate or prosecute any alcohol or drug abuse patient.[facility] HospitalIn the event this information is protected by the Federal Confidentiality of Alcohol and Drug Abuse Patient Records regulations: The Federal rules restrict any use of the information to criminally investigate or prosecute any alcohol or drug abuse patient.[facility] HospitalIn the event this information is protected by the Federal Confidentiality of Alcohol and Drug Abuse Patient Records regulations: The Federal rules restrict any use of the information to criminally investigate or prosecute any alcohol or drug abuse patient.[facility] HospitalIn the event this information is protected by the Federal Confidentiality of Alcohol and Drug Abuse Patient Records regulations: The Federal rules restrict any use of the information to criminally investigate or prosecute any alcohol or drug abuse patient.[facility] HospitalIn the event this information is protected by the Federal Confidentiality of Alcohol and Drug Abuse Patient Records regulations: The Federal rules restrict any use of the information to criminally investigate or prosecute any alcohol or drug abuse patient.[facility] HospitalIn the event this information is protected by the Federal Confidentiality of Alcohol and Drug Abuse Patient Records regulations: The Federal rules restrict any use of the information to criminally investigate or prosecute any alcohol or drug abuse patient.[facility] HospitalIn the event this information is protected by the Federal Confidentiality of Alcohol and Drug Abuse Patient Records regulations: The Federal rules restrict any use of the information to criminally investigate or prosecute any alcohol or drug abuse patient.[facility] HospitalIn the event this information is protected by the Federal Confidentiality of Alcohol and Drug Abuse Patient Records regulations: The Federal rules restrict any use of the information to criminally investigate or prosecute any alcohol or drug abuse patient.[facility] HospitalIn the event this information is protected by the Federal Confidentiality of Alcohol and Drug Abuse Patient Records regulations: The Federal rules restrict any use of the information to criminally investigate or prosecute any alcohol or drug abuse patient.[facility] HospitalIn the event this information is protected by the Federal Confidentiality of Alcohol and Drug Abuse Patient Records regulations: The Federal rules restrict any use of the information to criminally investigate or prosecute any alcohol or drug abuse patient.[facility] HospitalIn the event this information is protected by the Federal Confidentiality of Alcohol and Drug Abuse Patient Records regulations: The Federal rules restrict any use of the information to criminally investigate or prosecute any alcohol or drug abuse patient.[facility] Reason for Visit (unrecogniz ed section and content) Reason Comments Follow Up Reason Comments Refill Request Reason Onset Date Comments Refill Request 09/20/2022 Reason Comments F/U 3 Month Reason Comments F/U 3 months Reason Onset Date Comments Refill Request 07/09/2023 Reason Comments Follow Up 3 month follow up Reason Onset Date Comments colorectal cancer screening 12/27/2023 Rupali ent is overdue as of 10/07/20 for every 3 year colon cancer screening. Reason Comments F/U Diabetes 3 Month Reason Onset Date Comments Refill Request 03/10/2024 Reason Onset Date Comments Refill Request 04/09/2024 Reason Onset Date Comments Refill Request 07/04/2024 Reason Onset Date Comments Refill Request 12/30/2024 Reason Comments Follow Up 3 months Pain RT hip x 2 months Care Teams (unrecognized sec tion and content) Ruby Engineer Relationship Specialty Start Date End Date Abel Pablo MD [address] [facility] [place] [address] PCP - General Internal Medicine 01/19/17 Ruby Engineer Relationship Specialty Start Date End Date Abel Pablo MD [address] [place] [address], [place] [address] PCP - General Internal Medicine 01/19/17 Ruby Engineer Relationship Specialty Start Date End Date Abel Pablo MD [address] [place] [address], [place] [address] PCP - General Internal Medicine 01/19/17 Ruby Engineer Relationship Specialty Start Date End Date Abel Pablo MD [address] [place] [address], [place] [address] PCP - General Internal Medicine 01/19/17 Ruby Engineer Relationship Specialty Start Date End Date Abel Pablo MD [address] [place] [address], [place] [address] PCP - General Internal Medicine 01/19/17 Ruby Engineer Relationship Specialty Start Date End Date Abel Pablo MD [address] [place] [address], [place] [address] PCP - General Internal Medicine 01/19/17 Ruby Engineer Relationship Specialty Start Date End Date Abel Pablo MD [address] [place] [address], [place] [address] PCP - General Internal Medicine 01/19/17 Ruby Engineer Relationship Specialty Start Date End Date Abel Pablo MD [address] [place] [address], [place] [address] PCP - General Internal Medicine 01/19/17 Ruby Engineer Relationship Specialty Start Date End Date Abel Pablo MD [address] [facility] [place] [address] PCP - General Internal Medicine 01/19/17 Ruby Engineer Relationship Specialty Start Date End Date Abel Pablo MD [address] [facility] [place] [address] PCP - General Internal Medicine 01/19/17 Ruby Engineer Relationship Specialty Start Date End Date Abel Pablo MD [address] [facility] [place] [address] PCP - General Internal Medicine 01/19/17 Ruby Engineer Relationship Specialty Start Date End Date Abel Pablo MD [address] [facility] [place] [address] PCP - General Internal Medicine 01/19/17 Ruby Engineer Relationship Specialty Start Date End Date Abel Pablo MD [address] [facility] [place] [address] PCP - General Internal Medicine 01/19/17 Ruby Engineer Relationship Specialty Start Date End Date Abel Pablo MD [address] [facility] [place] [address] PCP - General Internal Medicine 01/19/17 Ruby Engineer Relationship Specialty Start Date End Date Abel Pablo MD [address] [facility] [place] [address] PCP - General Internal Medicine 01/19/17 Ruby Engineer Relationship Specialty Start Date End Date Abel Pablo MD [address] [facility] [place] [address] PCP - General Internal Medicine 01/19/17 Ruby Engineer Relationship Specialty Start Date End Date Abel Pablo MD [address] [facility] [place] [address] PCP - General Internal Medicine 01/19/17 Domonique Devine, BUSINESS CHANGE MANAGER.ELECTROMECHANICAL ASSEMBLY TECHNICIAN [address] [facility] [place] [address] Tire Tester Internal Medicine 07/28/24 Angie Melendez BUSINESS CHANGE MANAGER.INSURANCE SALES AGENT [address] [place] [address] Tire Tester Internal Medicine 07/28/24 Ruby Engineer Relationship Specialty Start Date End Date Abel Pablo MD [address] [facility] [place] [address] PCP - General Internal Medicine 01/19/17 Domonique Devine, BUSINESS CHANGE MANAGER.ELECTROMECHANICAL ASSEMBLY TECHNICIAN [address] [facility] [place] [address] Tire Tester Internal Medicine 07/28/24 Angie Melendez BUSINESS CHANGE MANAGER.INSURANCE SALES AGENT [address] [facility] [place] [address] [facility] Internal Medicine 11/11/24 Ruby Engineer Relationship Specialty Start Date End Date Abel Pablo MD [address] [facility] [place] [address] PCP - General Internal Medicine 01/19/17 Angie Melendez BUSINESS CHANGE MANAGER.INSURANCE SALES AGENT [address] [facility] [address] Tire Tester Internal Medicine 11/11/24 Nilson DomoniqueDARBY [place].ELECTROMECHANICAL ASSEMBLY TECHNICIAN [address] [place] [address] Tire Tester Internal Medicine 01/07/25 Team Status: Active Member Role/Relationship Status Dates Dr. Abel Pablo MD Primary Care Provider Active Team Status: Inactive Member Role/Relationship Status Dates Dr. Abel Pablo MD Primary Care Provider Active Start: January 08, 2025 End: January 08, 2025 Dr. Abel Pablo MD Referring Provider Active Start: January 08, 2025 End: January 08, 2025 Dr. Jose Elias MD Attending Provider Active S tart: January 08, 2025 End: January 08, 2025 Team Status: Active Member Role/Relationship Status Dates Dr. Abel Pablo MD Primary Care Provider Active Start: February 23, 2025 Dr. Jose Elias MD Attending Provider Active S tart: February 23, 2025 Team Status: Inactive Member Role/Relationship Status Dates Dr. Abel Pablo MD Primary Care Provider Active Start: February 23, 2025 End: February 23, 2025 Dr. Jose Elias MD Attending Provider Active S tart: February 23, 2025 End: February 23, 2025 Dr. Jose Elias MD Referring Provider Active S tart: February 23, 2025 End: February 23, 2025 Team Status: Active Member Role/Relationship Status Dates Dr. Abel Pablo MD Primary Care Provider Active Start: February 23, 2025 Lesly Downs SEMICONDUCTOR WAFERS ETCHER STRIPPER, SEMICONDUCTOR WAFERS ETCHER STRIPPER-C Attending Provider Active Start: February 23, 2025 (unrecognized sect ion and content) No Status Records FoundNo Status Records Found INFORMATION SOURCE (unrecogn ized section and content) DATE CREATED AUTHOR 01/28/2025 [facility] DATE CREATED AUTHOR AUTHOR'S ORGANIZ ATION 03/04/2025 [facility] Goals (unrecognized section and content) Goals may be documented in a n alternate section FOR RECORDS PERTAINING TO PATIENTS WHO ARE OR HAVE BEEN ENROLLED IN A CHEMICAL DEPENDENCY/SUBSTANCEABUSE PROGRAM, SOME INFORMATION MAY BE OMITTED. This clinical summary was aggregated from multiple sources. Caution should be exercised in using it in the provision of clinical care. This summary normalizes information from multiple sources, and as a consequence, information in this document may materially change the coding, format and clinical context of patient data. In addition, data may be omitted in some cases. CLINICAL DECISIONS SHOULD BE BASED ON THE PRIMARY CLINICAL RECORDS. [facility]. provides no warranty or guarantee of the accuracy or completeness of information in this document.
== END | disposition home or self-care (01) ==
PROVIDERS: PCP Internal Medicine; Referring Provider Internal Medicine Cardiovascular Disease; Visit Provider Internal Medicine Cardiovascular Disease
DX: Z00.00 Encounter for general adult medical examination without abnormal findings (principal)
CPT/HCPCS: J2785

== ENCOUNTER → 2025-05-05 | Outpatient (CLI) | payer MEDICARE, SELFPAY ==
[2018-07-04 10:10] VITALS: BMI 31.4
--- NOTE | 2025-05-05 10:11 | STEWCON_ITS ---
Reason For Study Reason For Study: CAD Stress Results Protocol: Dobutamine Stress Echo With Definity Maximum Predicted HR: 152 bpm Target HR: 129 bpm % Maximum Predicted HR: 86 % DurationHeart Rate Stage (mm:ss) (bpm) BP Comment Baseline 54 159/59No Chest Pain; 3 ML Diluted Definity DSE 10 MCG 4:09 82 138/77No Chest Pain DSE 20 MCG 3:09 96 155/73No Chest Pain DSE 30 MCG 3:00 120 149/70No Chest Pain DSE 40 MCG 3:29 130 143/70No Chest Pain Recovery 81 139/64No Chest Pain Stress Duration: 13:47 mm:ss Maximum Stress HR: 130 bpm METS: 1 Baseline Echocardiogram Findings Stress Echo Wall motion Data Resting WM Intermediate WM Stress WM ECHO/Stress Test Echo W/Contrast Interpretation Summary Dobutamine stress echocardiogram. 70-year-old male with a history of coronary artery disease. Resting EKG demonstrates sinus bradycardia with a rate of 58 bpm and poor R wav e progression. Resting blood pressure is 159/59. Dobutamine was infused starting at 10 mcg/kg/min and increasing in 3-mi nute aliquots to a peak of 40 mcg/kg/min. Patient maintained sinus rhythm with an episode of ventricular triplets and occ asional PVC and postinfusion bigeminy present. The maximum heart rate was 150 bpm which was 98% of max impacted heart rate the maximum workload was 1 metabolic equivalent. The peak blood pressure was 160/64 mmHg. No angina was no brigido. Stress echocardiogram. Resting dobutamine echocardiogram was performed with Definity enhancement and d emonstrated basal to mid inferior hypokinesis as well as basal to mid posterior hypokinesis. During low-dose dobu tamine infusion there was mild improvement in the ejection fraction from 60% and at peak infusion there was pe rsistent hypokinesis of the basal inferior wall as well as the basal posterior wall. The above is likely suggesti ve of an infarct. The anterior wall however augmented well with a peak ejection fraction of 65%. Conclusion: Dobutamine stress echocardiogram with no new ischemia noted. 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 Ordering Physician: Jose Elias Referring Physician: Jose Elias Performed By: Cheyenne Lew, FELTON, RVT
== END | disposition home or self-care (01) ==
PROVIDERS: PCP Internal Medicine; Referring Provider Internal Medicine Cardiovascular Disease; Visit Provider Internal Medicine Cardiovascular Disease
DX: I25.10 Atherosclerotic heart disease of native coronary artery without angina pectoris (principal); Z95.5 Presence of coronary angioplasty implant and graft
CPT/HCPCS: 93017; 93350; Q9957; A4216; C8928